=== PATIENT | female | born 1995 | race Hispanic/Latino ===

== ENCOUNTER 2017-06-28 23:20 | Emergency (ER) | payer OTHER ==
[2017-06-29 00:57] LABS: Absolute Monocytes 0.7 K/uL (0.1-1.3); Absolute Neutrophil 7.2 K/uL (1.8-8.0); Basophils % 0.4 % (0-1.3); Eosinophils % 0.4 % (0-4.4); Hematocrit 29.8 % (36.0-45.0); Lymphocytes % 20.4 % (15.3-44.8); MCH 29.6 pg (27.0-35.0); MPV 8.4 fL (7.6-11.3); Monocytes % 6.6 % (3.3-12.3); RBC Red Blood Cell Count 3.43 M/uL (3.86-4.86)
[2017-06-29 01:13] LABS: Bicarbonate 25 mEq/L (21-31); Glucose Level 102 mg/dL (65-120); Lipase 22 U/L (22-51); Potassium 3.4 mEq/L (3.6-5.0); Sodium Level 136 mEq/L (135-145)
[2017-06-29 01:19] LABS: ALT/SGPT 9 IU/L (10-60); AST/SGOT 15 IU/L (10-42); Alkaline Phosphatase 128 IU/L (42-121); BUN Blood Urea Nitrogen 13 mg/dL (6-20); Bilirubin Direct < 0.1 mg/dL (0-0.2); Protein, Total 6.7 g/dL (6.0-8.3)
[2017-06-29 01:20] LABS: Bilirubin Total < 0.1 mg/dL (0.3-1.2)
[2017-06-29 01:39] LABS: Urine Bacteria <20 /HPF (<20); Urine Culture Reflex Order NOT NEEDED; Urine Mucus 3+ /HPF (NONE SEEN); Urine RBC <5 /HPF (NONE SEEN)
--- NOTE | 2017-06-29 01:56 | ER ---
Nurse's Notes [facility] Name: Roselyn Mason Age: 22 yrs Sex: Female : 1995 Arrival Date: 06/28/2017 Time: 23:21 Bed 6 Private MD: Diagnosis: Abdominal and pelvic pain Presentation: 06/28 23:34 Presenting complaint: Patient states: that 3 days ago she started to have right lower fc abd pain. Denies any nausea, vomiting or diarrhea. Pt is 35 weeks . Pt went upstairs and Kassidy RN from L\T\D states that pt is 0-1 cm dilated. FHT 150's. States that Dr Quionnes said to send pt to ER if no better. Transition of care: patient was not received from another setting of care. Onset of symptoms was June 25, 2017. Care prior to arrival: None. 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 - Social history:: Smoking status: Patient/guardian denies using tobacco. Screenin:56 Abuse screen: Denies threats or abuse. Nutritional screening: No deficits noted. jd3 Tuberculosis screening: No symptoms or risk factors identified. Fall Risk Gait- Weak (10 pts.). Total Fuentes Fall Scale indicates No Risk (0-24 pts). Assessment: 23:52 General: Appears in no apparent distress. uncomfortable, Behavior is calm, cooperative, jd3 appropriate for age. Pain: Complains of pain in right lower quadrant Pain currently is 10 out of 10 on a pain scale. Quality of pain is described as sharp. Neuro: Level of Consciousness is awake, alert, obeys commands, Oriented to person, place, time, situation. Cardiovascular: Heart tones S1 S2 present Capillary refill < 3 seconds Patient's skin is warm and dry. Respiratory: Airway is patent Respiratory effort is even, unlabored, Respiratory pattern is regular, symmetrical, Breath sounds are clear bilaterally. GI: Abdomen is round Bowel sounds present X 4 quads. Abd is soft Abdomen is tender to palpation in right lower quadrant. : No signs and/or symptoms were reported regarding the genitourinary system. EENT: No signs and/or symptoms were reported regarding the EENT system. Derm: Skin is intact, Skin is dry, Skin is normal, Skin temperature is warm. Musculoskeletal: Circulation, motion, and sensation intact. Range of motion: intact in all extremities. 06/29 00:44 Reassessment: Patient and/or family updated on plan of care and expected duration. Pain ak1 level reassessed. Patient is alert, oriented x 3, equal unlabored respirations, skin warm/dry/pink. pt c/o increased pain to left lower abd. pt stated sitting and standing upright it increases pain. ERP at bedside after talking with pt's STRUCTURAL STEEL FITTER Dr. Bennett. ERP notified pt of possible transfer. Patient states symptoms have not improved. 01:32 Reassessment: pt informed of transfer to [facility]. Pt is asking why she can not ak1 be admitted to [facility] for MRI in the morning when the metal technician comes in, ERP notified of pt's request. ERP calling DR. Bennett, pt's STRUCTURAL STEEL FITTER again. waiting on DR. Bennett to return ERP's call. pt notified of the wait and will inform pt of answer to pt's question once Dr. Bennett calls back. . 02:29 Reassessment: Patient appears in no apparent distress at this time. Patient and/or jd3 family updated on plan of care and expected duration. Pain level reassessed. Patient is alert, oriented x 3, equal unlabored respirations, skin warm/dry/pink. report given EMS, pt reported understanding on need for transfer. Vital Signs: 06/28 23:39 Weight 72.57 kg (R); Height 5 ft. 1 in. (154.94 cm) (R); Pain 12/28; fc 23:51 BP 117 / 72; Pulse 102; Resp 19 S; Temp 98.3(O); Pulse Ox 97% on R/A; Pain 12/28; jd3 06/29 02:32 BP 109 / 74; Pulse 98; Resp 18; Pulse Ox 99% on R/A; Pain 12/28; jd3 06/28 23:39 Body Mass Index 30.23 (72.57 kg, 154.94 cm) ED Course: 06/28 23:21 Patient arrived in ED. am2 23:38 Triage completed. 23:40 Arm band placed on Patient placed in an exam room, on a stretcher. 23:43 Cornel Luna RN is Primary Nurse. jd3 23:54 Demetrius Lindo MD is Attending Physician. 23:57 Patient has correct armband on for positive identification. Placed in gown. Bed in low jd3 position. Call light in reach. Side rails up X 1. 04 00:41 Basic Metabolic Panel Sent. jd3 00:41 CBC with Diff Sent. jd3 00:41 Hepatic Function Sent. jd3 00:41 Lipase Sent. jd3 00:44 Inserted saline lock: 20 gauge in right antecubital area, using aseptic technique. ak1 Blood collected. 02:27 No provider procedures requiring assistance completed. Patient transferred, IV remains jd3 in place. Administered Medications: 02:21 Drug: Tylenol 650 mg Route: PO; jd3 02:28 Follow up: Response: No adverse reaction jd3 Outcome: 01:55 ER care complete, transfer ordered by . 02:28 Transferred by ground EMS to [facility], Transfer form jd3 completed. 02:28 Condition: stable 02:28 Instructed on the need for transfer, Demonstrated understanding of instructions. 02:33 Patient left the ED. jd3 Signatures: Hortencia Dyer RN RN Jocelyne Umaña RN RN ak1 Danielle Cornejo am2 Demetrius Lindo MD MD Cornel Luna RN RN jd3 Corrections: (The following items were deleted from the chart) 00:25 06/28 23:51 BP 117 / 72; Pulse 102bpm; Resp 19bpm; Spontaneous; Pulse Ox 97% RA; Pain jd3 12/28; jd3
--- NOTE | 2017-06-29 01:56 | EDPHYS ---
Physician Documentation [facility] Name: Roselyn Mason Age: 22 yrs Sex: Female : 1995 Arrival Date: 06/28/2017 Time: 23:21 Bed 6 Private MD: ED Physician Demetrius Lindo HPI: 06/29 01:33 This 22 yrs old Female presents to ER via Ambulatory with complaints of gs Abdominal Pain - RLQ. 01:33 The patient presents with abdominal pain in the lower abdomen, right lower quadrant. gs Onset: The symptoms/episode began/occurred 2 day(s) ago, and became worse and became persistent. The symptoms do not radiate. Associated signs and symptoms: Pertinent negatives: diarrhea, dysuria, fever, vomiting. The symptoms are described as sharp. Modifying factors: the symptoms are aggravated by movement. Severity of pain: At its worst the pain was severe in the emergency department the pain has improved mildly. The patient has not recently seen a physician. 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 - Social history:: Smoking status: Patient/guardian denies using tobacco. ROS: 06/29 01:33 All other systems are negative. gs Exam: 01:33 Head/Face: Normocephalic, atraumatic. Eyes: Pupils equal round and reactive to light, gs extra-ocular motions intact. Lids and lashes normal. Conjunctiva and sclera are non-icteric and not injected. Cornea within normal limits. Periorbital areas with no swelling, redness, or edema. ENT: Nares patent. No nasal discharge, no septal abnormalities noted. Tympanic membranes are normal and external auditory canals are clear. Oropharynx with no redness, swelling, or masses, exudates, or evidence of obstruction, uvula midline. Mucous membranes moist. Neck: Trachea midline, no thyromegaly or masses palpated, and no cervical lymphadenopathy. Supple, full range of motion without nuchal rigidity, or vertebral point tenderness. No Meningismus. Chest/axilla: Normal chest wall appearance and motion. Nontender with no deformity. No lesions are appreciated. Cardiovascular: Regular rate and rhythm with a normal S1 and S2. No gallops, murmurs, or rubs. Normal PMI, no JVD. No pulse deficits. Respiratory: Lungs have equal breath sounds bilaterally, clear to auscultation and percussion. No rales, rhonchi or wheezes noted. No increased work of breathing, no retractions or nasal flaring. Back: No spinal tenderness. No costovertebral tenderness. Full range of motion. Skin: Warm, dry with normal turgor. Normal color with no rashes, no lesions, and no evidence of cellulitis. MS/ Extremity: Pulses equal, no cyanosis. Neurovascular intact. Full, normal range of motion. Neuro: Awake and alert, GCS 15, oriented to person, place, time, and situation. Cranial nerves II-XII grossly intact. Motor strength 5/5 in all extremities. Sensory grossly intact. Cerebellar exam normal. Normal gait. 01:33 Constitutional: The patient appears alert, awake. 01:33 Abdomen/GI: Inspection: gravid appearance, is noted, Palpation: moderate abdominal tenderness, in the right lower quadrant and left lower quadrant, tenderness to percussion, Indicators: Rovsing's sign is positive. Vital Signs: 06/28 23:39 Weight 72.57 kg (R); Height 5 ft. 1 in. (154.94 cm) (R); Pain 10/10; fc 23:51 BP 117 / 72; Pulse 102; Resp 19 S; Temp 98.3(O); Pulse Ox 97% on R/A; Pain 10/10; jd3 06/29 02:32 BP 109 / 74; Pulse 98; Resp 18; Pulse Ox 99% on R/A; Pain 10/10; jd3 06/28 23:39 Body Mass Index 30.23 (72.57 kg, 154.94 cm) fc MDM: 00:18 Patient medically screened. gs 01:33 Differential diagnosis: appendicitis, round ligament pain, uti. Data reviewed: vital gs signs, nurses notes. Physician consultation: Araseli Salcedo MD after a discussion of the case, a recommendation for transfer for higher level of care is made. 01:55 ED course: would be unusual presentation for round ligament pain, didn't have previous gs pregnancies, started in end of 3rd trimester. will need exam by OB, surgeon. Dr. paniagua ask that her pt be transferred as we cannot get MRI now.. 06/29 00:20 Order name: Basic Metabolic Panel; Complete Time: 01:30 gs 06/29 00:20 Order name: CBC with Diff; Complete Time: : gs 06/29 00:20 Order name: Hepatic Function; Complete Time: : gs 06/29 00:20 Order name: Lipase; Complete Time: : gs 06/29 00:20 Order name: Urine Microscopic Only; Complete Time: 02:18 gs 06/29 00:45 Order name: Urine Dipstick--Ancillary (enter results); Complete Time: 02:18 rg2 06/29 00:20 Order name: IV Saline Lock; Complete Time: 00:41 gs 06/29 00:20 Order name: Labs collected and sent; Complete Time: 00:41 gs 06/29 00:20 Order name: Urine Dipstick-Ancillary (obtain specimen); Complete Time: 00:44 gs 06/29 00:45 Order name: Urine --Ancillary (enter results); Complete Time: 02:18 rg2 Administered Medications: 02:21 Drug: Tylenol 650 mg Route: PO; jd3 02:28 Follow up: Response: No adverse reaction jd3 Disposition: 06/29/17 01:55 Transfer ordered to [facility]. Diagnosis is Abdominal and pelvic pain. - Reason for transfer: Higher level of care. - Accepting physician is olivia. - Condition is Stable. - Problem is new. - Symptoms are unchanged. Signatures: Dispatcher [employer] EDMS Hortencia Dyer RN RN Demetrius Lindo MD MD gs Davies, Jonathon, RN RN jd3
[2017-06-29 02:14] LABS: Urine Blood TRACE (NEG); Urine Glucose NEGATIVE (NEG); Urine Protein 1+ (NEG); Urine Specific Gravity >1.030 (1.005-1.030); Urine pH 6.5 (5.0-7.0)
[2017-06-29] MEDS ORDERED: ACETAMINOPHEN 325 MG TABLET ONE (02:19)
[2017-06-29 02:40] VITALS: TEMP 98.3
[2017-06-29 02:41] VITALS: BP 109/74; O2SAT 99
== END 2017-06-29 02:33 | disposition short-term general hospital (02) ==
LOC: ER 23:20
DX: R10.2 Pelvic and perineal pain (principal); Z3A.35 35 weeks gestation of pregnancy
CPT/HCPCS: 36415; 80048; 80076; 81003; 81015; 81025; 83690; 85025; 99285

== ENCOUNTER 2017-07-06 02:12 | Emergency (ER) | payer OTHER ==
[2017-07-06] MEDS ORDERED: NA CHLORIDE 0.9% 2,000 ML ONE (03:09)
[2017-07-06] MEDS ORDERED: ONDANSETRON 4 MG/2 ML VIAL ONE ×2 (03:09→04:53)
[2017-07-06 04:13] LABS: Absolute Lymphocytes (CBC) 1.2 K/uL (0.7-4.9); Absolute Monocytes 0.5 K/uL (0.1-1.3); Absolute Neutrophil 9.9 K/uL (1.8-8.0); Basophils % 0.2 % (0-1.3); Eosinophils % 0.1 % (0-4.4); Hematocrit 31.8 % (36.0-45.0); Lymphocytes % 10.4 % (15.3-44.8); MCH 29.4 pg (27.0-35.0); MCV 86.8 fL (80-100); MPV 8.6 fL (7.6-11.3); Monocytes % 4.5 % (3.3-12.3); RBC Red Blood Cell Count 3.67 M/uL (3.86-4.86)
[2017-07-06 04:33] LABS: Bicarbonate 23 mEq/L (21-31); Glucose Level 86 mg/dL (65-120); Potassium 3.6 mEq/L (3.6-5.0); Sodium Level 135 mEq/L (135-145)
[2017-07-06 04:34] LABS: BUN Blood Urea Nitrogen 12 mg/dL (6-20)
--- NOTE | 2017-07-06 04:44 | ER ---
Nurse's Notes [facility] Name: Roselyn Mason Age: 22 yrs Sex: Female : 1995 Arrival Date: 07/06/2017 Time: 02:15 Bed 17 Private MD: Diagnosis: Vomiting; related conditions, unspecified, third trimester Presentation: 07/06 02:30 Presenting complaint: Patient states: she is having upper abdominal pain after which bb she vomits last year she had similar symptoms and was transferred from [facility] to [place] for possible esophageal tear. Transition of care: patient was not received from another setting of care. Onset of symptoms was July 05, 2017 at 20:00. Initial Sepsis Screen: Does the patient meet any 2 criteria? No. Patient's initial sepsis screen is negative. Does the patient have a suspected source of infection? No. Patient's initial sepsis screen is negative. Care prior to arrival: pt was sent to L\T\D T were 140. 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 - Social history:: Smoking status: Patient/guardian denies using tobacco, Patient/guardian denies using alcohol, street drugs. - Family history:: not pertinent. Screenin:00 Abuse screen: Denies threats or abuse. Denies injuries from another. Nutritional aa1 screening: No deficits noted. Tuberculosis screening: No symptoms or risk factors identified. Fall Risk None identified. Assessment: 03:00 General: Appears in no apparent distress. comfortable, Behavior is calm, cooperative, aa1 appropriate for age. Pain: Complains of pain in abdomen. Neuro: Level of Consciousness is awake, alert, obeys commands, Oriented to person, place, time, situation, Moves all extremities. Full function Gait is steady. Respiratory: Airway is patent Respiratory effort is even, unlabored, Respiratory pattern is regular, symmetrical. GI: Reports lower abdominal pain, upper abdominal pain, nausea, vomiting. : No signs and/or symptoms were reported regarding the genitourinary system. EENT: No signs and/or symptoms were reported regarding the EENT system. Derm: Skin is intact, is healthy with good turgor, Skin is pink, warm \T\ dry. Musculoskeletal: Circulation, motion, and sensation intact. Capillary refill < 3 seconds. 05:02 Reassessment: Patient appears in no apparent distress at this time. Patient is alert, aa1 oriented x 3, equal unlabored respirations, skin warm/dry/pink. Discussed d/c \T\ f/u instructions with pt; denies questions or concerns at this time Patient denies pain at this time. Vital Signs: 02:32 BP 115 / 79; Pulse 104; Resp 18 S; Temp 97.6(O); Pulse Ox 99% on R/A; Weight 74.39 kg bb (R); Height 5 ft. 1 in. (154.94 cm) (R); Pain 8/10; 03:43 BP 111 / 73; Pulse 84; Resp 16; Pulse Ox 98% on R/A; aa1 05:02 BP 115 / 80; Pulse 97; Resp 16; Pulse Ox 99% on R/A; Pain 0/10; aa1 02:32 Body Mass Index 30.99 (74.39 kg, 154.94 cm) bb ED Course: 02:15 Patient arrived in ED. do 02:32 Triage completed. bb 02:32 Arm band placed on Patient placed in an exam room, on a stretcher, on pulse oximetry. bb 02:38 Ata Fowler MD is Attending Physician. [facility] 03:00 Patient has correct armband on for positive identification. Bed in low position. Call aa1 light in reach. Pulse ox on. NIBP on. Warm blanket given. 03:18 Ping Rand RN is Primary Nurse. aa1 03:30 Initial lab(s) drawn, by me, sent to lab. Urine collected: clean catch specimen, clear. aa1 Inserted saline lock: 20 gauge in right antecubital area, using aseptic technique. Blood collected. 05:02 No provider procedures requiring assistance completed. IV discontinued, intact, aa1 bleeding controlled, No redness/swelling at site. Pressure dressing applied. Administered Medications: 03:34 Drug: Zofran 4 mg Route: IVP; Site: right antecubital; aa1 05:01 Follow up: Response: No adverse reaction; Nausea unchanged aa1 03:35 Drug: NS 0.9% 1000 ml Route: IV; Rate: 1 bolus; Site: right antecubital; aa1 05:02 Follow up: IV Status: Completed infusion aa1 03:35 Drug: NS 0.9% 1000 ml Route: IV; Rate: 1 bolus; Site: right antecubital; aa1 05:02 Follow up: IV Status: Completed infusion aa1 05:02 Drug: Zofran 4 mg Route: IVP; Site: right antecubital; aa1 05:02 Follow up: Response: Medication administered at discharge. aa1 Outcome: 04:43 Discharge ordered by . ellis 05:03 Discharged to home ambulatory. aa1 05:03 Condition: good 05:03 Discharge instructions given to patient, Instructed on discharge instructions, follow up and referral plans. medication usage, Demonstrated understanding of instructions, follow-up care, medications, Prescriptions given X 1. 05:04 Patient left the ED. aa1 Signatures: Ping Rand, RN RN aa1 Ata Fowler MD MD cha Ballard, Brenda, RN RN Linda Warren do
--- NOTE | 2017-07-06 04:44 | EDPHYS ---
Physician Documentation [facility] Name: Roselyn Mason Age: 22 yrs Sex: Female : 1995 Arrival Date: 07/06/2017 Time: 02:15 Bed 17 Private MD: ED Physician Ata Fowler HPI: 07/06 03:02 This 22 yrs old Female presents to ER via Ambulatory with complaints of ellis , Abd Pain When Vomiting. 03:02 The patient presents to the emergency department with nausea, vomiting. Onset: The ellis symptoms/episode began/occurred 2 day(s) ago. Possible causes: unknown. The symptoms are aggravated by nothing. The symptoms are alleviated by nothing. The patient presents to the emergency department with nausea and vomiting, that started yesterday. The estimated gestational age is 26 weeks. Associated signs and symptoms: The patient has no apparent associated signs or symptoms. 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 - Social history:: Smoking status: Patient/guardian denies using tobacco, Patient/guardian denies using alcohol, street drugs. - Family history:: not pertinent. ROS: 03:02 Constitutional: Negative for fever, chills, and weight loss, Eyes: Negative for injury, ellis pain, redness, and discharge, ENT: Negative for injury, pain, and discharge, Neck: Negative for injury, pain, and swelling, Cardiovascular: Negative for chest pain, palpitations, and edema, Respiratory: Negative for shortness of breath, cough, wheezing, and pleuritic chest pain, Back: Negative for injury and pain, : Negative for injury, bleeding, discharge, and swelling, MS/Extremity: Negative for injury and deformity, Skin: Negative for injury, rash, and discoloration, Neuro: Negative for headache, weakness, numbness, tingling, and seizure, Psych: Negative for depression, anxiety, suicide ideation, homicidal ideation, and hallucinations, Allergy/Immunology: Negative for hives, rash, and allergies, Endocrine: Negative for neck swelling, polydipsia, polyuria, polyphagia, and marked weight changes, Hematologic/Lymphatic: Negative for swollen nodes, abnormal bleeding, and unusual bruising. 03:02 Abdomen/GI: Positive for nausea and vomiting, abdominal distension, of the right upper quadrant, left upper quadrant, right lower quadrant and left lower quadrant. Exam: 03:02 Constitutional: This is a well developed, well nourished patient who is awake, alert, ellis and in no acute distress. Head/Face: Normocephalic, atraumatic. Eyes: Pupils equal round and reactive to light, extra-ocular motions intact. Lids and lashes normal. Conjunctiva and sclera are non-icteric and not injected. Cornea within normal limits. Periorbital areas with no swelling, redness, or edema. ENT: Nares patent. No nasal discharge, no septal abnormalities noted. Tympanic membranes are normal and external auditory canals are clear. Oropharynx with no redness, swelling, or masses, exudates, or evidence of obstruction, uvula midline. Mucous membranes moist. Neck: Trachea midline, no thyromegaly or masses palpated, and no cervical lymphadenopathy. Supple, full range of motion without nuchal rigidity, or vertebral point tenderness. No Meningismus. Chest/axilla: Normal chest wall appearance and motion. Nontender with no deformity. No lesions are appreciated. Cardiovascular: Regular rate and rhythm with a normal S1 and S2. No gallops, murmurs, or rubs. Normal PMI, no JVD. No pulse deficits. Respiratory: Lungs have equal breath sounds bilaterally, clear to auscultation and percussion. No rales, rhonchi or wheezes noted. No increased work of breathing, no retractions or nasal flaring. Back: No spinal tenderness. No costovertebral tenderness. Full range of motion. Skin: Warm, dry with normal turgor. Normal color with no rashes, no lesions, and no evidence of cellulitis. MS/ Extremity: Pulses equal, no cyanosis. Neurovascular intact. Full, normal range of motion. Neuro: Awake and alert, GCS 15, oriented to person, place, time, and situation. Cranial nerves II-XII grossly intact. Motor strength 5/5 in all extremities. Sensory grossly intact. Cerebellar exam normal. Normal gait. Psych: Awake, alert, with orientation to person, place and time. Behavior, mood, and affect are within normal limits. 03:02 Abdomen/GI: Inspection: abdomen appears normal, Bowel sounds: normal, Palpation: abdomen is soft and non-tender, Liver: no appreciated palpable abnormalities, Hernia: not appreciated. Vital Signs: 02:32 BP 115 / 79; Pulse 104; Resp 18 S; Temp 97.6(O); Pulse Ox 99% on R/A; Weight 74.39 kg bb (R); Height 5 ft. 1 in. (154.94 cm) (R); Pain 8/10; 03:43 BP 111 / 73; Pulse 84; Resp 16; Pulse Ox 98% on R/A; aa1 05:02 BP 115 / 80; Pulse 97; Resp 16; Pulse Ox 99% on R/A; Pain 0/10; aa1 02:32 Body Mass Index 30.99 (74.39 kg, 154.94 cm) MDM: 02:38 Patient medically screened. [facility] 03:03 Data reviewed: vital signs, nurses notes, lab test result(s). [facility] 07/06 03:01 Order name: Basic Metabolic Panel; Complete Time: 04:42 [facility] 07/06 03:01 Order name: CBC with Diff; Complete Time: 04:42 [facility] 07/06 04:51 Order name: Urine Dipstick--Ancillary (enter results) [facility] 07/06 03:01 Order name: IV Saline Lock; Complete Time: 03:35 [facility] 07/06 03:01 Order name: Labs collected and sent; Complete Time: 03:35 [facility] 07/06 03:01 Order name: NPO; Complete Time: 03:18 [facility] 07/06 03:01 Order name: Urine Dipstick-Ancillary (obtain specimen); Complete Time: 03:35 [facility] Administered Medications: 03:34 Drug: Zofran 4 mg Route: IVP; Site: right antecubital; aa1 05:01 Follow up: Response: No adverse reaction; Nausea unchanged aa1 03:35 Drug: NS 0.9% 1000 ml Route: IV; Rate: 1 bolus; Site: right antecubital; aa1 05:02 Follow up: IV Status: Completed infusion aa1 03:35 Drug: NS 0.9% 1000 ml Route: IV; Rate: 1 bolus; Site: right antecubital; aa1 05:02 Follow up: IV Status: Completed infusion aa1 05:02 Drug: Zofran 4 mg Route: IVP; Site: right antecubital; aa1 05:02 Follow up: Response: Medication administered at discharge. aa1 Disposition: 07/06/17 04:43 Discharged to Home. Impression: Vomiting, related conditions, unspecified, third trimester. - Condition is Stable. - Discharge Instructions: Nausea and Vomiting, Nausea and Vomiting, [id number]. - Prescriptions for Zofran 4 mg Oral Tablet - take 1 tablet by ORAL route every 12 hours As needed; 20 tablet. Vitamin 27- 0.8 mg Oral Tablet - take 1 tablet by ORAL route once daily; 30 tablet. - Medication Reconciliation Form, Thank You Letter, Antibiotic Education, Prescription Opioid Use form. - Follow up: Private Physician; When: 2 - 3 days; Reason: Recheck today's complaints, Continuance of care, Re-evaluation by your physician. - Problem is new. - Symptoms have improved. Signatures: Dispatcher [employer] Ping Nevarez RN RN aa1 Ata Fowler MD MD cha Ballard, Brenda, RN RN bb Corrections: (The following items were deleted from the chart) 03:18 03:01 FHT's ordered. ellis chaudhry
[2017-07-06 05:15] VITALS: TEMP 97.6
[2017-07-06 05:18] VITALS: BP 115/80; O2SAT 99
[2017-07-06 06:21] LABS: Urine Blood NEGATIVE (NEG); Urine Glucose NEGATIVE (NEG); Urine Protein 2+ (NEG); Urine Specific Gravity >1.030 (1.005-1.030)
== END 2017-07-06 05:04 | disposition home or self-care (01) ==
LOC: ER 02:12
DX: O21.9 Vomiting of pregnancy, unspecified (principal); Z3A.36 36 weeks gestation of pregnancy
CPT/HCPCS: 36415; 80048; 81003; 85025; 96361; 96374; 99284; J2405; J7030

== ENCOUNTER 2017-07-18 02:48 | Inpatient (IN) | payer OTHER ==
[2017-07-18] MEDS ORDERED: Ringers Lactate 1,000 ML IV PRN (03:12)
[2017-07-18] MEDS ORDERED: Ringers Lactate 1,000 ML IV SCH (04:00)
[2017-07-18 04:04] VITALS: BMI 30.8
[2017-07-18 04:14] LABS: RPR Titer ND
[2017-07-18 04:23] LABS: Absolute Lymphocytes (CBC) 1.4 K/uL (0.7-4.9); Absolute Monocytes 0.7 K/uL (0.1-1.3); Absolute Neutrophil 4.2 K/uL (1.8-8.0); Basophils % 0.6 % (0-1.3); Eosinophils % 1.9 % (0-4.4); Hematocrit 26.1 % (36.0-45.0); Lymphocytes % 21.8 % (15.3-44.8); MCH 29.3 pg (27.0-35.0); MCV 85.1 fL (80-100); MPV 8.9 fL (7.6-11.3); Monocytes % 10.4 % (3.3-12.3); RBC Red Blood Cell Count 3.06 M/uL (3.86-4.86)
[2017-07-18] MEDS ORDERED: CARBOPROST TROME 250 MCG/ML IM ONE (04:48)
[2017-07-18] MEDS ORDERED: METHYLERGONOVINE 0.2MG/ML AMP IM ONE ×2 (04:48→15:55)
[2017-07-18 08:38] LABS: Urine Appearance CLEAR; Urine Bilirubin NEGATIVE (NEG); Urine Blood NEGATIVE (NEG); Urine Color YELLOW; Urine Glucose NEGATIVE (NEG); Urine Protein NEGATIVE (NEG); Urine Urobilinogen 0.2 mg/dL (0.2-1.0); Urine pH 6.5 (5.0-7.0)
[2017-07-18 09:05] LABS: Urine Bacteria <20 /HPF (<20); Urine Culture Reflex Order NOT NEEDED; Urine RBC <5 /HPF (NONE SEEN)
[2017-07-18] MEDS ORDERED: OXYTOCIN/LR 20 UNIT/1,000 ML BAG IV ONE (09:27)
[2017-07-18] MEDS ORDERED: FENTANYL CITR 100 MCG/2 ML IV ONE (10:23)
[2017-07-18] MEDS ORDERED: ROPIVACAINE HCL 100 ML IV PRN (10:23)
[2017-07-18] MEDS ORDERED: ROPIVACAINE HCL 2 MG/ML 100ML IV ONE (10:24)
[2017-07-18] MEDS ORDERED: ROPIVACAINE HCL 20 ML ONE ×2 (10:46→14:37)
[2017-07-18] MEDS ORDERED: FENTANYL CITR 100 MCG/2 ML ONE (14:37)
[2017-07-18] MEDS ORDERED: LIDOCAINE 2% INJ, 20 mL 0 ML ONE (15:55)
[2017-07-18] MEDS ORDERED: METHYLERGONOVINE 0.2 MG TAB PO PRN (16:59)
[2017-07-18] MEDS ORDERED: DOCUSATE NA/SENNA CONC 1 TAB PO PRN (16:59)
[2017-07-18] MEDS ORDERED: ONDANSETRON 4 MG (ODT) TAB PO PRN (16:59)
[2017-07-18] MEDS ORDERED: ACETAMINOPHEN 500 MG TAB PO PRN (16:59)
[2017-07-18] MEDS ORDERED: BISACODYL 10 MG RECTAL SUPP RECT PRN (16:59)
--- NOTE | 2017-07-18 17:03 | P.PN ---
Date of Service: 07/18/17
[2017-07-18] MEDS ORDERED: ONDANSETRON 4 MG/2 ML VIAL IV ONE (17:51)
[2017-07-18] MEDS: IBUPROFEN 200 MG TAB PO PRN (18:48)
[2017-07-18] MEDS: Oxycodone HCl/Acetaminophen 1 TAB TAB PO PRN (19:08)
--- NOTE | 2017-07-18 21:55 | HP ---
Date of Admission: 07/18/2017 History Of Present Illness: Roselyn is a 22-year-old, 4, para 1-0-2-1 , who presents at 38 weeks and 2 days with spontaneous rupture of membranes at 2 :45 a.m. The patient presented to labor and delivery after she had a gush of fluid at home. It was clear. Once patient presented, it was confirmed that she was ruptured, cervix is 2-3 cm dilated, 50% effaced, -1 station, clear fluid was noted. She reports irregular contractions. Denies vaginal bleeding. Reports good movement. She has obtained care with nd beginning at 19 weeks gestation. care has been complicated by anemia. She has a history of one prior vaginal delivery in 2015 at 40 weeks gestation and was induced and she received an epidural. See record for further details. She is GBS negative, Rh positive. Past Medical History: Negative. Past Surgical History: Negative. 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 Family History: Significant for diabetes mellitus. Social History: Currently is not smoking. No alcohol or drug use. Physical Examination: Vital Signs: On admission, blood pressure 107/71, pulse of 79, respirations 18 , temperature 97.4. General: Resting in bed, in mild distress. Head and Neck: Normocephalic, atraumatic. Heart: Regular rate and rhythm. Lungs: Symmetric nonlabored breathing. Abdomen: Gravid. Extremities: Bilateral lower extremities, no clubbing, cyanosis, or edema. Vaginal: 2-3 cm dilated, 60% effaced, -1 station. Vertex presentation. Clear fluid noted. scalp electrode placed. [place] contractions are irregular. heart rate monitoring, baseline heart rate 140. Good accelerations noted. No decels. Moderate variability, category 2 tracing. Laboratory Data: White blood cell count 6.5, hemoglobin 9.0, hematocrit 26, platelet count is 260. Assessment And Plan: Roselyn is a 22-year-old, 4, para 1-0-2-1 at 38 weeks and 2 days gestation with spontaneous rupture of membranes in early labor. Plan is to begin Pitocin for labor augmentation. Epidural placement at patient's request. Anticipate vaginal . Continuous maternal monitoring. PIERO Voice ID: [id number] [facility]
[2017-07-18 22:11] LABS: RPR (Rapid Plasma Reagin) NON-REACT (NON-REACT)
[2017-07-19] MEDS: Oxycodone HCl/Acetaminophen 1 TAB TAB PO PRN ×3 (00:40→19:30)
[2017-07-19 04:54] LABS: Absolute Lymphocytes (CBC) 1.8 K/uL (0.7-4.9); Absolute Monocytes 0.7 K/uL (0.1-1.3); Absolute Neutrophil 7.1 K/uL (1.8-8.0); Basophils % 0.4 % (0-1.3); Eosinophils % 0.6 % (0-4.4); Hematocrit 23.1 % (36.0-45.0); Lymphocytes % 18.6 % (15.3-44.8); MCH 29.4 pg (27.0-35.0); MCV 84.4 fL (80-100); MPV 8.4 fL (7.6-11.3); Monocytes % 7.3 % (3.3-12.3); RBC Red Blood Cell Count 2.73 M/uL (3.86-4.86)
[2017-07-19] MEDS: IBUPROFEN 200 MG TAB PO PRN ×2 (05:30→12:28)
[2017-07-19 19:48] VITALS: BP 111/70; TEMP 98
[2017-07-19] MEDS ORDERED: FERROUS SULFATE 325 MG TAB PO SCH (21:00)
--- NOTE | 2017-07-19 23:20 | P.DS ---
Admission Date: 07/18/17 Discharge Date: 07/19/17 Disposition: ROUTINE DISCHARGE Discharge Condition: GOOD Brief History of Present Illness: See H and P Hospital Course: care complicated by anemia. Patient doing well. Bonding well with the infant. Emphasized importance of taking prenatals and iron. Vital Signs/Physical Exam: Temp Pulse Resp BP Pulse Ox 98 F 86 18 111/70 07/19/17 12:00 07/19/17 12:00 07/19/17 12:00 07/19/17 12:00 General: Alert, In no apparent distress, Oriented x3 HEENT: Atraumatic Neck: Supple Respiratory: Normal air movement Cardiovascular: No edema, Normal pulses Gastrointestinal: Soft and benign (Fundus firm) Musculoskeletal: No clubbing, No swelling Integumentary: No rashes, No breakdown Neurological: Normal gait, Normal speech Laboratory Data at Discharge: WBC 9.7 K/uL (4.3-10.9) D 07/19/17 04:30 Hgb 8.0 g/dL (12.0-15.0) L 07/19/17 04:30 Hct 23.1 % (36.0-45.0) L 07/19/17 04:30 Plt Count 228 K/uL (152-406) 07/19/17 04:30 Home Medications: Ferrous Sulfate [Ferrous Sulfate*] 1 tab PO DAILY 06/11/14 Pnv with Ca,No.71/Iron/FA [ Vitamin Tablet] 1 tab PO DAILY 06/11/14 Diet: Regular Activity: No lifting more than 10 lbs Followup: Luis Enrique Salcedo DO [ACTIVE - CAN ADMIT] - (Follow up with Dr. Salcedo in 6 weeks.)
[2017-07-20 04:32] LABS: HBsAG Nonreactive (Nonreactive)
[2017-07-20] MEDS ORDERED: PRENATAL VITAMIN PO SCH (09:00)
--- NOTE | 2017-07-27 16:08 | P.OP ---
Date of Service: 07/18/17 Findings and Operative Technique Patient delivered a viable female in cephalic presentation on 07/18/2017 at 4:46 p.m.. was delivered without difficulty. Once infant was delivered nose and mouth were suctioned with a suction bulb. Cord was clamped and cut. Infant was placed on mother's abdomen for skin to skin bonding. Attention was then turned to the placenta which was delivered with gentle traction at 4:49 p.m.. Perineum was noted to be intact. EBL was noted to be 200 cc. Infant's Apgars were 9 and 9. Weight was found to be 7 lb 9 oz. 1st stage of labor was 14 hr and 34 min. 2nd stage was 12 min. Both mom and baby are doing well.
== END 2017-07-19 21:20 | disposition home or self-care (01) | DRG 775 ==
LOC: L&D 02:48 → 2ND-WC 03:19
PROVIDERS: ADMIT Student in an Organized Health Care Education/Training Program; ATTEND Student in an Organized Health Care Education/Training Program
PROC: 10E0XZZ Delivery of Products of Conception, External Approach (ICD-10-PCS; principal; 2017-07-18)
DX: O80 Encounter for full-term uncomplicated delivery (principal); O90.81 Anemia of the puerperium; D64.9 Anemia, unspecified; Z3A.38 38 weeks gestation of pregnancy; Z37.0 Single live birth
CPT/HCPCS: 36415; 81001; 83986; 85025; 86592; 86850; 86900; 86901; 87340; 99218; J2210; J2405; J2590; J2795; J3010

== ENCOUNTER 2017-11-17 04:21 | Emergency (ER) | payer OTHER, SELFPAY ==
[2017-11-17] MEDS ORDERED: ONDANSETRON 4 MG/2 ML VIAL ONE (04:51)
[2017-11-17] MEDS ORDERED: NA CHLORIDE 0.9% 1,000 ML ONE (04:51)
[2017-11-17 05:12] LABS: Absolute Lymphocytes (CBC) 2.4 K/uL (0.7-4.9); Absolute Monocytes 0.4 K/uL (0.1-1.3); Absolute Neutrophil 5.1 K/uL (1.8-8.0); Basophils % 0.4 % (0-1.3); Eosinophils % 0.6 % (0-4.4); Hematocrit 32.9 % (36.0-45.0); MCH 24.5 pg (27.0-35.0); MCV 73.3 fL (80-100); MPV 8.3 fL (7.6-11.3); Monocytes % 5.3 % (3.3-12.3); RBC Red Blood Cell Count 4.49 M/uL (3.86-4.86)
[2017-11-17] MEDS ORDERED: ACETAMINOPHEN 500 MG TAB ONE (05:27)
[2017-11-17 05:57] LABS: ALT/SGPT 22 U/L (12-78); AST/SGOT 19 U/L (15-37); Albumin 4.1 g/dL (3.4-5.0); Alkaline Phosphatase 62 U/L (45-117); Amylase Level 48 U/L (25-115); BUN Blood Urea Nitrogen 14 mg/dL (7-18); Bicarbonate 23 mmol/L (21-32); Bilirubin Direct 0.1 mg/dL (0-0.2); Bilirubin Total 0.3 mg/dL (0.2-1.0); Glucose Level 109 mg/dL (74-106); Lipase 88 U/L (73-393); Potassium 3.4 mmol/L (3.5-5.1); Protein, Total 7.9 g/dL (6.4-8.2); Sodium Level 138 mmol/L (136-145)
[2017-11-17 06:01] LABS: Urine Bacteria >50 /HPF (<20); Urine Culture Reflex Order REFLEXED; Urine Mucus 3+ /HPF (NONE SEEN); Urine RBC <5 /HPF (NONE SEEN)
[2017-11-17 06:02] LABS: Urine Blood NEGATIVE (NEG); Urine Glucose NEGATIVE (NEG); Urine Protein 1+ (NEG); Urine Specific Gravity >1.030 (1.005-1.030)
--- NOTE | 2017-11-17 06:15 | ER ---
Nurse's Notes [facility] Name: Roselyn Mason Age: 22 yrs Sex: Female : 1995 Arrival Date: 11/17/2017 Time: 04:24 Bed 8 Private MD: Diagnosis: Diarrhea, unspecified; related conditions, unspecified;Infections of genitourinary tract in Presentation: 11/17 04:32 Presenting complaint: Patient states: vomiting x 2 weeks and has not been able to have aa1 a BM in 1 week. Reports she also took a test last night and it was positive. States she has not taken any OTC medications for her constipation. Transition of care: patient was not received from another setting of care. Onset of symptoms was November 02, 2017. Risk Assessment: Do you want to hurt yourself or someone else? Patient reports no desire to harm self or others. Initial Sepsis Screen: Does the patient meet any 2 criteria? HR > 90 bpm. Does the patient have a suspected source of infection? No. Patient's initial sepsis screen is negative. Care prior to arrival: None. 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 - Social history:: Smoking status: Patient uses tobacco products, denies chronic smoking, but will smoke occasionally. - Ebola Screening: : No symptoms or risks identified at this time. Screenin:47 Abuse screen: Denies threats or abuse. Nutritional screening: No deficits noted. jd3 Tuberculosis screening: No symptoms or risk factors identified. Fall Risk IV access (20 points). Ambulatory Aid- None/Bed Rest/Nurse Assist (0 pts). Gait- Normal/Bed Rest/Wheelchair (0 pts) Mental Status- Oriented to own ability (0 pts). Total Fuentes Fall Scale indicates No Risk (0-24 pts). Assessment: 04:40 General: Appears uncomfortable, Behavior is cooperative, anxious. Pain: Complains of jd3 pain in abdomen Pain radiates to back Quality of pain is described as aching, pressure, Also complains of nausea. Neuro: Level of Consciousness is awake, alert, obeys commands, Oriented to person, place, time, situation. Cardiovascular: Capillary refill < 3 seconds Patient's skin is warm and dry. Respiratory: Airway is patent Respiratory effort is even, unlabored, Respiratory pattern is regular, symmetrical. GI: Abdomen is round Bowel sounds present X 4 quads. Abd is soft Abdomen is tender to palpation Reports constipation, nausea, vomiting. : No signs and/or symptoms were reported regarding the genitourinary system. EENT: No signs and/or symptoms were reported regarding the EENT system. Derm: Skin is intact, Skin is dry, Skin is normal, Skin temperature is warm. Musculoskeletal: Circulation, motion, and sensation intact. Range of motion: intact in all extremities. 05:47 Reassessment: Patient appears in no apparent distress at this time. Patient and/or jd3 family updated on plan of care and expected duration. Pain level reassessed. Patient is alert, oriented x 3, equal unlabored respirations, skin warm/dry/pink. GI: Reports diarrhea. 06:35 Reassessment: Patient appears in no apparent distress at this time. Patient and/or jd3 family updated on plan of care and expected duration. Pain level reassessed. Patient is alert, oriented x 3, equal unlabored respirations, skin warm/dry/pink. Vital Signs: 04:36 BP 124 / 88; Pulse 114; Resp 20; Temp 97.6; Pulse Ox 100% on R/A; Weight 70.76 kg; aa1 Height 5 ft. 1 in. (154.94 cm); Pain 10/10; 06:06 BP 96 / 65; Pulse 72; Resp 17 S; Pulse Ox 100% on R/A; jd3 04:36 Body Mass Index 29.48 (70.76 kg, 154.94 cm) aa1 ED Course: 04:24 Patient arrived in ED. al2 04:26 Tee Marte MD is Attending Physician. tw4 04:36 Triage completed. aa1 04:36 Arm band placed on right wrist. Patient placed in an exam room, on a stretcher. aa1 04:38 Cornel Luna RN is Primary Nurse. jd3 04:50 Inserted saline lock: 20 gauge in right antecubital area, using aseptic technique. jd3 Blood collected. 05:47 Patient has correct armband on for positive identification. Placed in gown. Bed in low jd3 position. Call light in reach. Side rails up X 1. 06:19 No provider procedures requiring assistance completed. jd3 06:36 IV discontinued, intact, bleeding controlled, No redness/swelling at site. Pressure jd3 dressing applied. Administered Medications: 04:54 Drug: NS 0.9% 1000 ml Route: IV; Rate: 1 bolus; Site: right antecubital; jd3 06:37 Follow up: Response: No adverse reaction; IV Status: Completed infusion; IV Intake: jd3 1000ml 04:55 Drug: Zofran 4 mg Route: IVP; Site: right antecubital; jd3 05:19 Follow up: Response: No adverse reaction jd3 05:45 Drug: Tylenol 1000 mg Route: PO; jd3 06:37 Follow up: Response: No adverse reaction jd3 06:07 Not Given (Physician Discretion): Fleet Enema 133 ml AL once; may repeat once jd3 Intake: 06:37 IV: 1000ml; Total: 1000ml. jd3 Outcome: 06:14 Discharge ordered by . tw4 06:36 Discharged to home ambulatory. jd3 06:36 Condition: stable 06:36 Discharge instructions given to patient, Instructed on discharge instructions, follow up and referral plans. medication usage, Demonstrated understanding of instructions, follow-up care, medications, Prescriptions given X 1. 06:37 Patient left the ED. jd3 Signatures: Ping Rand RN RN aa1 Cornel Luna RN RN jd3 Love, Angelica al2 Wadley, Terrence, MD MD tw4
--- NOTE | 2017-11-17 06:15 | EDPHYS ---
Physician Documentation [facility] Name: Roselyn Mason Age: 22 yrs Sex: Female : 1995 Arrival Date: 11/17/2017 Time: 04:24 Bed 8 Private MD: ED Physician Tee Marte HPI: 11/17 06:36 This 22 yrs old Female presents to ER via Ambulatory with complaints of tw4 Constipation, Vomiting, Back Pain. 06:36 The patient presents to the emergency department with nausea, vomiting, diarrhea. tw4 Onset: The symptoms/episode began/occurred today. Possible causes: . The symptoms are aggravated by nothing. The symptoms are alleviated by nothing. Associated signs and symptoms: The patient has no apparent associated signs or symptoms. Severity of symptoms: At their worst the symptoms were moderate in the emergency department the symptoms are unchanged. The patient has not experienced similar symptoms in the past. 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 - Social history:: Smoking status: Patient uses tobacco products, denies chronic smoking, but will smoke occasionally. - Ebola Screening: : No symptoms or risks identified at this time. ROS: 06:36 Constitutional: Negative for fever, chills, and weight loss, Cardiovascular: Negative tw4 for chest pain, palpitations, and edema, Respiratory: Negative for shortness of breath, cough, wheezing, and pleuritic chest pain. 06:36 MS/Extremity: Negative for injury and deformity, Skin: Negative for injury, rash, and discoloration, Neuro: Negative for headache, weakness, numbness, tingling, and seizure. 06:36 Abdomen/GI: Positive for abdominal pain, nausea and vomiting, nausea, vomiting, and diarrhea, nausea, vomiting, Negative for constipation, abdominal cramps, abdominal distension, black/tarry stool, rectal pain, rectal bleeding, bowel incontinence, flatulence. Exam: 06:36 Constitutional: This is a well developed, well nourished patient who is awake, alert, tw4 and in no acute distress. Head/Face: Normocephalic, atraumatic. Chest/axilla: Normal chest wall appearance and motion. Nontender with no deformity. No lesions are appreciated. Cardiovascular: Regular rate and rhythm with a normal S1 and S2. No gallops, murmurs, or rubs. Normal PMI, no JVD. No pulse deficits. Respiratory: Lungs have equal breath sounds bilaterally, clear to auscultation and percussion. No rales, rhonchi or wheezes noted. No increased work of breathing, no retractions or nasal flaring. 06:36 Abdomen/GI: Inspection: abdomen appears normal, Bowel sounds: normal, Palpation: moderate abdominal tenderness, in the suprapubic area. 06:36 : deferred. Vital Signs: 04:36 BP 124 / 88; Pulse 114; Resp 20; Temp 97.6; Pulse Ox 100% on R/A; Weight 70.76 kg; aa1 Height 5 ft. 1 in. (154.94 cm); Pain 10/10; 06:06 BP 96 / 65; Pulse 72; Resp 17 S; Pulse Ox 100% on R/A; jd3 04:36 Body Mass Index 29.48 (70.76 kg, 154.94 cm) aa1 MDM: 04:44 Patient medically screened. tw4 06:36 Differential diagnosis: Nonspecific abd pain, gastritis. Data reviewed: vital signs, tw4 nurses notes. Counseling: I had a detailed discussion with the patient and/or guardian regarding: the historical points, exam findings, and any diagnostic results supporting the discharge/admit diagnosis. Response to treatment: the patient's symptoms have mildly improved after treatment, and as a result, I will discharge patient. Special discussion: I discussed with the patient/guardian in detail that at this point there is no indication for admission to the hospital. It is understood, however, that if the symptoms persist or worsen the patient needs to return immediately for re-evaluation. 11/17 04:33 Order name: Amylase, Serum; Complete Time: 06:22 tw4 11/17 04:33 Order name: Basic Metabolic Panel; Complete Time: 06:22 tw4 11/17 04:33 Order name: CBC with Diff; Complete Time: 05:36 tw4 11/17 05:36 Interpretation: Normal except: HGB 11.0; MCV 73.3; HCT 32.9; MCH 24.5; RDW 18.9. tw4 11/17 04:33 Order name: Creatinine for Radiology; Complete Time: 06:22 [facility] 11/17 04:33 Order name: Hepatic Function; Complete Time: 06:22 11/17 04:33 Order name: Lipase; Complete Time: 06:22 11/17 04:33 Order name: Urine Microscopic Only; Complete Time: 06:22 11/17 06:23 Interpretation: Normal except: UWBC 20-50; SQEPI 10-20; UBACT >50; MUCUS 3+. tw 11/17 04:59 Order name: Urine Dipstick--Ancillary (enter results); Complete Time: 06:22 fl 11/17 04:59 Order name: Urine --Ancillary (enter results); Complete Time: 06:22 fl 11/17 06:02 Order name: Urine Culture [facility] 11/17 04:33 Order name: Urine Test (obtain specimen); Complete Time: 04:55 11/17 04:33 Order name: IV Saline Lock; Complete Time: 04:39 11/17 04:33 Order name: Labs collected and sent; Complete Time: 04:39 11/17 04:33 Order name: Urine Dipstick-Ancillary (obtain specimen); Complete Time: 04:55 tw Administered Medications: 04:54 Drug: NS 0.9% 1000 ml Route: IV; Rate: 1 bolus; Site: right antecubital; jd3 06:37 Follow up: Response: No adverse reaction; IV Status: Completed infusion; IV Intake: jd3 1000ml 04:55 Drug: Zofran 4 mg Route: IVP; Site: right antecubital; jd3 05:19 Follow up: Response: No adverse reaction jd3 05:45 Drug: Tylenol 1000 mg Route: PO; jd3 06:37 Follow up: Response: No adverse reaction jd3 06:07 Not Given (Physician Discretion): Fleet Enema 133 ml UT once; may repeat once jd3 Disposition: 11/17/17 06:14 Discharged to Home. Impression: Diarrhea, unspecified, related conditions, unspecified, Infections of genitourinary tract in . - Condition is Stable. - Discharge Instructions: Food Choices to Help Relieve Diarrhea, Adult, Diarrhea, Adult, Back Pain in , Abdominal Pain During , [id number], and Urinary Tract Infection. - Prescriptions for Macrodantin 100 mg Oral Capsule - take 1 capsule by ORAL route every 6 hours for 10 days; 40 capsule. - Medication Reconciliation Form, Thank You Letter, Antibiotic Education, Prescription Opioid Use form. - Follow up: Private Physician; When: Upon discharge from the Emergency Department; Reason: Recheck today's complaints, Continuance of care. - Problem is new. - Symptoms have improved. Signatures: Dispatcher [employer] EDMS Ping Rand RN RN aa1 Cornel Luna RN RN jd3 Tee Marte MD MD tw4 Corrections: (The following items were deleted from the chart) 06:24 06:14 11/17/2017 06:14 Discharged to Home. Impression: Diarrhea, unspecified; tw4 related conditions, unspecified. Condition is Stable. Forms are Medication Reconciliation Form, Thank You Letter, Antibiotic Education, Prescription Opioid Use. Follow up: Private Physician; When: Upon discharge from the Emergency Department; Reason: Recheck today's complaints, Continuance of care. Problem is new. Symptoms have improved. tw4 06:37 06:24 11/17/2017 06:14 Discharged to Home. Impression: Diarrhea, unspecified; jd3 related conditions, unspecified; Infections of genitourinary tract in . Condition is Stable. Discharge Instructions: Food Choices to Help Relieve Diarrhea, Adult, Diarrhea, Adult, Back Pain in , Abdominal Pain During , [id number]. Forms are Medication Reconciliation Form, Thank You Letter, Antibiotic Education, Prescription Opioid Use. Follow up: Private Physician; When: Upon discharge from the Emergency Department; Reason: Recheck today's complaints, Continuance of care. Problem is new. Symptoms have improved. tw4
[2017-11-17 06:43] VITALS: TEMP 97.6; O2SAT 100
[2017-11-17 06:44] VITALS: BP 96/65
== END 2017-11-17 06:37 | disposition home or self-care (01) ==
LOC: ER 04:21
DX: O23.91 Unspecified genitourinary tract infection in pregnancy, first trimester (principal); R19.7 Diarrhea, unspecified; O99.331 Smoking (tobacco) complicating pregnancy, first trimester
CPT/HCPCS: 36415; 80048; 80076; 81003; 81015; 81025; 82150; 83690; 85025; 87086; 87088; 96361; 96374; 99284; J2405; J7030

== ENCOUNTER 2017-12-06 17:58 | Emergency (ER) | payer SELFPAY ==
[2017-12-06 19:10] LABS: Urine Blood NEGATIVE (NEG); Urine Glucose NEGATIVE (NEG); Urine Protein 2+ (NEG); Urine Specific Gravity 1.025 (1.005-1.030)
[2017-12-06 19:32] LABS: Absolute Lymphocytes (CBC) 1.7 K/uL (0.7-4.9); Absolute Monocytes 0.5 K/uL (0.1-1.3); Absolute Neutrophil 7.2 K/uL (1.8-8.0); Basophils % 0.3 % (0-1.3); Eosinophils % 0.1 % (0-4.4); Hematocrit 34.3 % (36.0-45.0); Lymphocytes % 17.8 % (15.3-44.8); MCH 25.9 pg (27.0-35.0); MCV 76.5 fL (80-100); MPV 8.2 fL (7.6-11.3); Monocytes % 5.4 % (3.3-12.3); RBC Red Blood Cell Count 4.48 M/uL (3.86-4.86)
[2017-12-06] MEDS ORDERED: NA CHLORIDE 0.9% 1,000 ML ONE (19:44)
[2017-12-06] MEDS ORDERED: ONDANSETRON 4 MG/2 ML VIAL ONE (19:44)
[2017-12-06] MEDS ORDERED: FAMOTIDINE 20 MG/2 ML VIAL IV ONE (19:44)
[2017-12-06 20:06] LABS: BUN Blood Urea Nitrogen 13 mg/dL (7-18); Bicarbonate 23 mmol/L (21-32); Glucose Level 87 mg/dL (74-106); HCG, Quantitative 91551 mIU/mL (1-3); Potassium 3.2 mmol/L (3.5-5.1); Sodium Level 137 mmol/L (136-145)
[2017-12-06] MEDS ORDERED: METOCLOPRAMIDE 10 MG/2mL INJ ONE (20:16)
--- NOTE | 2017-12-06 20:35 | ER ---
Nurse's Notes [facility] Name: Roselyn Mason Age: 22 yrs Sex: Female : 1995 Arrival Date: 12/06/2017 Time: 18:01 Bed 25 Private MD: None, None Diagnosis: Vomiting; related conditions, unspecified Presentation: 12/06 18:16 Presenting complaint: Patient states: vomiting for 1.5 weeks and sharp pain in the sv esophagus. Pt reports with her last she was vomiting a lot and they told her she tore her esophagus. c/o lightheadedness. Transition of care: patient was not received from another setting of care. Onset of symptoms was November 29, 2017. Care prior to arrival: None. 18:16 Method Of Arrival: Ambulatory sv 18:16 Acuity: TABITHA 3 sv 19:29 Risk Assessment: Do you want to hurt yourself or someone else? Patient reports no lp1 desire to harm self or others. Initial Sepsis Screen: Does the patient meet any 2 criteria? No. Patient's initial sepsis screen is negative. Does the patient have a suspected source of infection? No. Patient's initial sepsis screen is negative. 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 - Social history:: Smoking status: Patient/guardian denies using tobacco. - Ebola Screening: : No symptoms or risks identified at this time. Screenin:28 Abuse screen: Denies threats or abuse. Denies injuries from another. Nutritional lp1 screening: No deficits noted. Tuberculosis screening: No symptoms or risk factors identified. Fall Risk None identified. Assessment: 19:27 General: Appears uncomfortable, Behavior is appropriate for age. Pain: Complains of lp1 pain in esophagus, chest Pain currently is 8 out of 10 on a pain scale. Neuro: Level of Consciousness is awake, alert, obeys commands. Cardiovascular: Patient's skin is warm and dry. Respiratory: Respiratory effort is even, unlabored. GI: Abdomen is non-distended, Bowel sounds present X 4 quads. Reports nausea, vomiting. : No signs and/or symptoms were reported regarding the genitourinary system. EENT: No signs and/or symptoms were reported regarding the EENT system. Derm: Skin is pink, warm \\T\\ dry. Musculoskeletal: Circulation, motion, and sensation intact. 20:30 Reassessment: Patient states nausea decreased at this time, feeling better and would lp1 like to go home; States "my sister had to leave and my anxiety gets bad when I'm by myself, so I'd rather go home now"; Provider notified. 20:35 Reassessment: Patient drinking apple juice, tolerating well. lp1 Vital Signs: 18:18 BP 124 / 98; Pulse 108; Resp 15; Temp 97.6; Pulse Ox 100% ; Weight 63.5 kg; Height 5 sv ft. 1 in. (154.94 cm); Pain 8/10; 19:26 BP 115 / 75; Pulse 114; Resp 16; Pulse Ox 100% on R/A; aj1 18:18 Body Mass Index 26.45 (63.50 kg, 154.94 cm) sv ED Course: 18:01 Patient arrived in ED. mr 18:02 None, None is Private Physician. mr 18:18 Triage completed. sv 18:19 Arm band placed on left wrist. sv 18:40 Eduardo Sprague MD is Attending Physician. kdr 19:27 Verónica Ayala, GENE is Primary Nurse. lp1 19:27 Inserted saline lock: 20 gauge in left antecubital area, using aseptic technique. Blood lp1 collected. 19:29 Patient has correct armband on for positive identification. Pulse ox on. NIBP on. lp1 20:51 No provider procedures requiring assistance completed. IV discontinued, No lp1 redness/swelling at site. Pressure dressing applied. Administered Medications: 19:45 Drug: NS 0.9% 1000 ml Route: IV; Rate: 1000 ml; Site: left antecubital; lp1 20:40 Follow up: IV Status: IV converted to saline lock; IV Intake: 800ml lp1 19:45 Drug: Zofran 4 mg Route: IVP; Site: left antecubital; lp1 20:00 Follow up: Response: Nausea unchanged lp1 19:46 Drug: Pepcid 20 mg Route: IVP; Site: left antecubital; lp1 20:41 Follow up: Response: No adverse reaction lp1 20:14 Drug: Reglan 10 mg Route: IVP; Site: left antecubital; kr2 20:41 Follow up: Response: Marked relief of symptoms; Nausea is decreased lp1 20:40 Drug: Potassium Chloride 40 mEq Route: PO; lp1 20:41 Follow up: Response: Medication administered at discharge. lp1 Intake: 20:40 IV: 800ml; Total: 800ml. lp1 Outcome: 20:34 Discharge ordered by . kdr 20:52 Discharged to home ambulatory, with family. lp1 20:52 Condition: good 20:52 Discharge instructions given to patient, Instructed on discharge instructions, follow up and referral plans. medication usage, Demonstrated understanding of instructions, follow-up care, medications, Prescriptions given X 2. 20:54 Patient left the ED. lp1 Signatures: Katiana Gonzalez RN RN aj1 Janet Estrella RN RN Eduardo Antunez MD MD kdr Rivera, Maria mr Pena, Laura, RN RN lp1 Ana Lilia Briones RN RN kr2 Corrections: (The following items were deleted from the chart) 19:27 19:26 Inserted saline lock: 20 gauge in left antecubital area, using aseptic technique. lp1 Blood collected. aj1
--- NOTE | 2017-12-06 20:35 | EDPHYS ---
Physician Documentation [facility] Name: Roselyn Mason Age: 22 yrs Sex: Female : 1995 Arrival Date: 12/06/2017 Time: 18:01 Bed 25 Private MD: None, None ED Physician Eduardo Sprague HPI: 12/06 20:47 This 22 yrs old Female presents to ER via Ambulatory with complaints of kdr unknown wks , Vomiting. 20:47 The patient presents to the emergency department with nausea, that is moderate, kdr vomiting, that is intermittent, abdominal pain, of the epigastric area, Chest pain radiating down from her neck when she is vomiting. Onset: The symptoms/episode began/occurred gradually, 2 week(s) ago. Possible causes: . The symptoms are aggravated by food , The symptoms are alleviated by nothing. Associated signs and symptoms: Pertinent positives: abdominal pain. Severity of symptoms: At their worst the symptoms were moderate in the emergency department the symptoms have improved moderately. The patient has experienced a previous episode, With prior . 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 - Social history:: Smoking status: Patient/guardian denies using tobacco. - Ebola Screening: : No symptoms or risks identified at this time. ROS: 20:47 Constitutional: Negative for fever, chills, and weight loss, Eyes: Negative for injury, kdr pain, redness, and discharge, Neck: Negative for injury, pain, and swelling, Cardiovascular: Negative for chest pain, palpitations, and edema, Respiratory: Negative for shortness of breath, cough, wheezing, and pleuritic chest pain, Back: Negative for injury and pain, : Negative for injury, bleeding, discharge, and swelling, MS/Extremity: Negative for injury and deformity, Skin: Negative for injury, rash, and discoloration, Neuro: Negative for headache, weakness, numbness, tingling, and seizure activity. Psych: Negative for depression, anxiety, suicide ideation, homicidal ideation, and hallucinations, Allergy/Immunology: Negative for hives, rash, and allergies, Endocrine: Negative for neck swelling, polydipsia, polyuria, polyphagia, and marked weight changes, Hematologic/Lymphatic: Negative for swollen nodes, abnormal bleeding, and unusual bruising. 20:47 Abdomen/GI: Positive for abdominal pain, nausea and vomiting, Negative for diarrhea, constipation, abdominal cramps, abdominal distension, anorexia, black/tarry stool, rectal pain, rectal bleeding, bowel incontinence. Exam: 20:47 Constitutional: This is a well developed, well nourished patient who is awake, alert, kdr and in no acute distress. Head/Face: Normocephalic, atraumatic. Eyes: Pupils equal round and reactive to light, extra-ocular motions intact. Lids and lashes normal. Conjunctiva and sclera are non-icteric and not injected. Cornea within normal limits. Periorbital areas with no swelling, redness, or edema. Neck: Trachea midline, no thyromegaly or masses palpated, and no cervical lymphadenopathy. Supple, full range of motion without nuchal rigidity, or vertebral point tenderness. No Meningismus. Chest/axilla: Normal chest wall appearance and motion. Nontender with no deformity. No lesions are appreciated. Cardiovascular: Regular rate and rhythm with a normal S1 and S2. No gallops, murmurs, or rubs. Normal PMI, no JVD. No pulse deficits. Respiratory: Lungs have equal breath sounds bilaterally, clear to auscultation and percussion. No rales, rhonchi or wheezes noted. No increased work of breathing, no retractions or nasal flaring. Back: No spinal tenderness. No costovertebral tenderness. Full range of motion. Skin: Warm, dry with normal turgor. Normal color with no rashes, no lesions, and no evidence of cellulitis. MS/ Extremity: Pulses equal, no cyanosis. Neurovascular intact. Full, normal range of motion. Neuro: Awake and alert, GCS 15, oriented to person, place, time, and situation. Cranial nerves II-XII grossly intact. Motor strength 5/5 in all extremities. Sensory grossly intact. Cerebellar exam normal. Normal gait. Psych: Awake, alert, with orientation to person, place and time. Behavior, mood, and affect are within normal limits. 20:47 Abdomen/GI: Inspection: abdomen appears normal, Bowel sounds: active, Palpation: soft, mild abdominal tenderness, in the epigastric area. Vital Signs: 18:18 BP 124 / 98; Pulse 108; Resp 15; Temp 97.6; Pulse Ox 100% ; Weight 63.5 kg; Height 5 sv ft. 1 in. (154.94 cm); Pain 8/10; 19:26 BP 115 / 75; Pulse 114; Resp 16; Pulse Ox 100% on R/A; aj1 18:18 Body Mass Index 26.45 (63.50 kg, 154.94 cm) sv MDM: 20:34 Patient medically screened. kdr 20:47 Data reviewed: vital signs, nurses notes, lab test result(s). Counseling: I had a kdr detailed discussion with the patient and/or guardian regarding: the historical points, exam findings, and any diagnostic results supporting the discharge/admit diagnosis, lab results, the need for outpatient follow up. ED course: The patient refused further treatment or evaluation and asked to leave. 12/06 18:32 Order name: Urine Dipstick--Ancillary (enter results); Complete Time: 19:32 ds4 12/06 18:32 Order name: Urine --Ancillary (enter results); Complete Time: 19:32 ds4 12/06 18:41 Order name: Quantitative Hcg; Complete Time: 20:31 kdr 12/06 18:41 Order name: Abo/rh Typing; Complete Time: 20:47 kdr 12/06 18:41 Order name: Basic Metabolic Panel; Complete Time: 20:31 kdr 12/06 18:41 Order name: CBC with Diff; Complete Time: 20:31 kdr 12/06 18:32 Order name: Urine Dipstick-Ancillary (obtain specimen); Complete Time: 18:32 ds4 12/06 18:32 Order name: Urine Test (obtain specimen); Complete Time: 18:32 ds4 12/06 18:41 Order name: IV Saline Lock; Complete Time: 19:26 kdr 12/06 18:41 Order name: Labs collected and sent; Complete Time: 19:26 kdr 12/06 18:41 Order name: NPO; Complete Time: 19:26 kdr Administered Medications: 19:45 Drug: NS 0.9% 1000 ml Route: IV; Rate: 1000 ml; Site: left antecubital; lp1 20:40 Follow up: IV Status: IV converted to saline lock; IV Intake: 800ml lp1 19:45 Drug: Zofran 4 mg Route: IVP; Site: left antecubital; lp1 20:00 Follow up: Response: Nausea unchanged lp1 19:46 Drug: Pepcid 20 mg Route: IVP; Site: left antecubital; lp1 20:41 Follow up: Response: No adverse reaction lp1 20:14 Drug: Reglan 10 mg Route: IVP; Site: left antecubital; kr2 20:41 Follow up: Response: Marked relief of symptoms; Nausea is decreased lp1 20:40 Drug: Potassium Chloride 40 mEq Route: PO; lp1 20:41 Follow up: Response: Medication administered at discharge. lp1 Disposition: 12/06/17 20:34 Discharged to Home. Impression: Vomiting, related conditions, unspecified. - Condition is Fair. - Discharge Instructions: Nausea and Vomiting, Adult, [id number], Heartburn During , [id number]. - Prescriptions for Pepcid 20 mg Oral Tablet - take 1 tablet by ORAL route every 12 hours for 5 days; 10 tablet. Reglan 10 mg Oral Tablet - take 1 tablet by ORAL route every 6 hours take 30 minutes before meals and at bedtime; 20 tablet. - Medication Reconciliation Form, Thank You Letter, Antibiotic Education, Prescription Opioid Use form. - Follow up: Private Physician; When: 2 - 3 days; Reason: If symptoms return, Further diagnostic work-up, Recheck today's complaints, Continuance of care, Re-evaluation by your physician. - Problem is new. - Symptoms have improved. Signatures: Dispatcher [employer] EDNY Janet Estrella RN RN Eduardo Antunez MD MD kdr Pena, Laura, RN RN lp1 Ever Jones ds4 Ana Lilia Briones RN RN kr2 Corrections: (The following items were deleted from the chart) 20:54 20:34 12/06/2017 20:34 Discharged to Home. Impression: Vomiting; related lp1 conditions, unspecified. Condition is Fair. Forms are Medication Reconciliation Form, Thank You Letter, Antibiotic Education, Prescription Opioid Use. Follow up: Private Physician; When: 2 - 3 days; Reason: If symptoms return, Further diagnostic work-up, Recheck today's complaints, Continuance of care, Re-evaluation by your physician. Problem is new. Symptoms have improved. kdr
[2017-12-06] MEDS ORDERED: POTASSIUM CL SA 10 MEQ TAB PO ONE (20:42)
[2017-12-06 20:59] VITALS: TEMP 97.6; O2SAT 100
[2017-12-06 21:00] VITALS: BP 115/75
== END 2017-12-06 20:54 | disposition home or self-care (01) ==
LOC: ER 17:58
DX: O21.9 Vomiting of pregnancy, unspecified (principal); Z3A.00 Weeks of gestation of pregnancy not specified
CPT/HCPCS: 36415; 80048; 81003; 81025; 84702; 85025; 86900; 86901; 96361; 96374; 96375; 99284; J2405; J2765; J7030

== ENCOUNTER 2017-12-24 11:30 | Emergency (ER) | payer OTHER, SELFPAY ==
[2017-12-24] MEDS ORDERED: ONDANSETRON 4 MG/2 ML VIAL ONE (13:26)
[2017-12-24] MEDS ORDERED: MORPHINE 4 MG/ML SYR ONE (13:26)
[2017-12-24] MEDS ORDERED: NA CHLORIDE 0.9% 1,000 ML ONE (13:26)
[2017-12-24 13:28] LABS: Absolute Lymphocytes (CBC) 1.1 K/uL (0.7-4.9); Absolute Monocytes 0.7 K/uL (0.1-1.3); Absolute Neutrophil 7.6 K/uL (1.8-8.0); Basophils % 0.4 % (0-1.3); Eosinophils % 0.1 % (0-4.4); Hematocrit 31.3 % (36.0-45.0); MCV 78.6 fL (80-100); MPV 8.5 fL (7.6-11.3); Monocytes % 6.9 % (3.3-12.3); RBC Red Blood Cell Count 3.98 M/uL (3.86-4.86)
[2017-12-24 13:50] LABS: BUN Blood Urea Nitrogen 8 mg/dL (7-18); Bicarbonate 23 mmol/L (21-32); Glucose Level 98 mg/dL (74-106); Potassium 3.4 mmol/L (3.5-5.1); Sodium Level 135 mmol/L (136-145)
[2017-12-24 13:53] LABS: Urine RBC LOADED /HPF (NONE SEEN)
[2017-12-24 13:56] LABS: Urine Bacteria <20 /HPF (<20); Urine Culture Reflex Order NOT NEEDED
--- NOTE | 2017-12-24 14:38 | RAD REPORT ---
EXAM DESCRIPTION: US - OB Limited - 12/24/2017 2:08 pm CLINICAL HISTORY: with pelvic pain COMPARISON: None FINDINGS: Single live into is in breech presentation. Placenta is posterior. Amniotic flui d is within normal limits. Cardiac activity 160 beats per minute. Cervix 3.6 centimeters BPD 2 centimeters 13 weeks 2 days HC 7.6 centimeters 13 weeks 1 day AC 6.7 centimeters 13 weeks 2 days FL 1.2 centimeters 13 weeks 3 days Estimated weight 74 grams Evaluation of the right and left adnexae is unremarkable IMPRESSION: Single live intrauterine with an estimated gestational age 13 weeks 2 days ADAN 06/29/2018 Breech presentation If a survey is desired it should be performed in approximately 5 weeks
[2017-12-24 15:10] LABS: Urine Blood 3+ (NEG); Urine Glucose NEGATIVE (NEG); Urine Protein 1+ (NEG); Urine pH 8.5 (5.0-7.0)
--- NOTE | 2017-12-24 15:49 | ER ---
Nurse's Notes [facility] Name: Roselyn Maosn Age: 22 yrs Sex: Female : 1995 Arrival Date: 12/24/2017 Time: 11:33 Bed 23 Private MD: Nazario Zavala B Diagnosis: Threatened Presentation: 12/24 11:42 Presenting complaint: Patient states: vaginal bleeding, lower abd pain, and left low aa5 back pain that began approximately 40 minutes ago. Pt reports being 15 weeks . Transition of care: patient was not received from another setting of care. Onset of symptoms was December 2017. Risk Assessment: Do you want to hurt yourself or someone else? Patient reports no desire to harm self or others. Initial Sepsis Screen: Does the patient meet any 2 criteria? No. Patient's initial sepsis screen is negative. Does the patient have a suspected source of infection? No. Patient's initial sepsis screen is negative. Care prior to arrival: None. 11:42 Method Of Arrival: Ambulatory aa5 11:42 Acuity: TABITHA 3 aa5 Triage Assessment: 13:15 General: Appears in no apparent distress. uncomfortable, well groomed, well developed, kr2 well nourished, Behavior is calm, cooperative, appropriate for age. Pain: Complains of pain in pelvis Pain radiates to back Pain currently is 10 out of 10 on a pain scale. Quality of pain is described as aching, crampy, pressure, Pain began 1 hour ago. Is continuous, Alleviated by nothing. Aggravated by repositioning. EENT: Oral mucosa is moist. Neuro: Level of Consciousness is awake, alert, obeys commands, Oriented to person, place, time, situation. Cardiovascular: Capillary refill < 3 seconds in bilateral fingers Patient's skin is warm and dry. Respiratory: Airway is patent Respiratory effort is even, unlabored, Respiratory pattern is regular, symmetrical. GI: Abdomen is round non-distended, Reports nausea. : Reports vaginal bleeding that is bright red, moderate flow, since 1 hour ago. Derm: Skin is intact, is healthy with good turgor, Skin is pink, warm \T\ dry. Musculoskeletal: Circulation, motion, and sensation intact. 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 - Social history:: Smoking status: Patient/guardian denies using tobacco. - Ebola Screening: : No symptoms or risks identified at this time. Screenin:15 Abuse screen: Denies threats or abuse. Denies injuries from another. Nutritional kr2 screening: No deficits noted. Tuberculosis screening: No symptoms or risk factors identified. Fall Risk Assessment: 13:33 Reassessment: See triage assessment, ultrasound in room at this time. kr2 14:12 Reassessment: Patient appears in no apparent distress at this time. Patient and/or kr2 family updated on plan of care and expected duration. Pain level reassessed. Patient is alert, oriented x 3, equal unlabored respirations, skin warm/dry/pink. Patient states symptoms have improved. 14:45 Reassessment: Patient appears in no apparent distress at this time. Patient and/or kr2 family updated on plan of care and expected duration. Pain level reassessed. Patient is alert, oriented x 3, equal unlabored respirations, skin warm/dry/pink. Given apple juice as requested and ok 'd by provider. Patient states feeling better. Patient states symptoms have improved. Vital Signs: 11:43 BP 129 / 92; Pulse 113; Resp 18 S; Temp 98.0(TE); Pulse Ox 99% on R/A; Weight 68.04 kg aa5 (R); Height 5 ft. 1 in. (154.94 cm) (R); Pain 8/10; 13:34 BP 120 / 74; Pulse 100; Resp 22; Pulse Ox 100% on R/A; kr2 14:48 BP 118 / 80; Pulse 89; Resp 17; Pulse Ox 100% on R/A; kr2 16:00 BP 122 / 76; Pulse 90; Resp 19; Pulse Ox 99% on R/A; kr2 11:43 Body Mass Index 28.34 (68.04 kg, 154.94 cm) aa ED Course: 11:33 Patient arrived in ED. as 11:34 Nazario Zavala MD is Private Physician. as 11:43 Triage completed. aa5 11:43 Arm band placed on. aa5 12:57 [facility] 12:57 Prabhjot Fowler MD is Attending Physician. jm 13:02 Ana Lilia Briones, GENE is Primary Nurse. kr2 13:15 Patient has correct armband on for positive identification. Bed in low position. Call kr2 light in reach. Side rails up X 1. Adult w/ patient. Pulse ox on. NIBP on. Door closed. Warm blanket given. Head of bed elevated. 13:15 Inserted saline lock: 20 gauge in right antecubital area, using aseptic technique. kr2 Blood collected. 13:36 Initial lab(s) drawn, by ED staff, sent to lab. Urine collected: clean catch specimen, jp3 clear, rhoda colored, Amount Voided: 10mL. 13:37 Urine --Ancillary (enter results) Sent. jp3 13:37 Urine Dipstick--Ancillary (enter results) Sent. jp3 14:00 Assist provider with pelvic exam: Performed by Bill OVERTON Patient tolerated well. kr2 Patient given personal cleansing wipes, wash cloth, luiz pad and mesh panties for personal care. 14:03 Ultrasound completed. Patient tolerated well. Notified SHIRT PRESSER/BROOKLYNN BHAGAT. sg3 14:09 US OB Limited In Process Unspecified. EDMS 15:48 Nazario Zavala MD is Referral Physician. jmm 16:15 IV discontinued, intact, bleeding controlled, No redness/swelling at site. Pressure kr2 dressing applied. Administered Medications: 13:25 Drug: Zofran 4 mg Route: IVP; Site: right antecubital; kr2 13:53 Follow up: Response: No adverse reaction kr2 13:26 Drug: NS 0.9% 1000 ml Route: IV; Rate: 1000 ml; Site: right antecubital; kr2 15:45 Follow up: Response: No adverse reaction; IV Status: Completed infusion kr2 13:26 Drug: morphine 4 mg Route: IVP; Site: right antecubital; kr2 13:53 Follow up: Response: No adverse reaction; Pain is decreased kr2 Outcome: 15:49 Discharge ordered by . jmm 16:15 Discharged to home via wheelchair, with family. kr2 16:15 Condition: stable 16:15 Discharge instructions given to patient, family, Instructed on discharge instructions, follow up and referral plans. Demonstrated understanding of instructions, follow-up care. 16:16 Patient left the ED. kr2 Signatures: Dispatcher [employer] EDBill Brewer PA PA jmm Martinez, Amelia as Calderon, Audri RN RN aa5 Ana Lilia Briones RN RN kr2 Janina Carpenter 3 Guicho Kline jp3 Corrections: (The following items were deleted from the chart) 11:47 11:42 Presenting complaint: Patient states: vaginal bleeding, lower abd pain, and left aa5 low back pain that began approximately 40 minutes ago. aa5 14:48 14:00 Assist provider with pelvic exam: Performed by Bill OVERTON Patient tolerated kr2 well. kr2
--- NOTE | 2017-12-24 15:50 | EDPHYS ---
Physician Documentation [facility] Name: Roselyn Mason Age: 22 yrs Sex: Female : 1995 Arrival Date: 12/24/2017 Time: 11:33 Bed 23 Private MD: Nazario Zavala B ED Physician Prabhjot Fowler HPI: 12/24 13:11 This 22 yrs old Female presents to ER via Ambulatory with complaints of jmm Vaginal Bleeding - +Preg 15 Wks, Abdominal Cramping, Back Pain. 13:11 The patient presents with vaginal bleeding that is heavy. Onset: The symptoms/episode jmm began/occurred acutely, 2 hour(s) ago. Modifying factors: The symptoms are alleviated by nothing, the symptoms are aggravated by nothing. Associated signs and symptoms: Pertinent positives: back pain. This is a that presents to the ED with vaginal bleeding, abdominal pain, and lower back pain beginning approx 1.5 hours ago while attempting to the use the restroom. . 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 - Social history:: Smoking status: Patient/guardian denies using tobacco. - Ebola Screening: : No symptoms or risks identified at this time. ROS: 13:11 Constitutional: Negative for fever, chills, and weight loss, Cardiovascular: Negative jmm for chest pain, palpitations, and edema, Respiratory: Negative for shortness of breath, cough, wheezing, and pleuritic chest pain. 13:11 Abdomen/GI: Positive for abdominal pain. 13:11 Back: Positive for radiated pain. 13:11 : Positive for vaginal bleeding. 13:11 All other systems are negative. Exam: 13:11 Head/Face: atraumatic. Chest/axilla: Normal chest wall appearance and motion. jmm Cardiovascular: Regular rate and rhythm. No edema appreciated Respiratory: Normal respirations, no respiratory distress appreciated Abdomen/GI: Non distended, soft Skin: General appearance color normal MS/ Extremity: Moves all extremities, no obvious deformities appreciated, no edema noted to the lower extremities Neuro: Awake and alert, normal gait Psych: Behavior is normal, Mood is normal, Patient is cooperative and pleasant 13:11 Constitutional: The patient appears alert, awake, anxious, uncomfortable. 14:11 : Pelvic Exam: Speculum exam: moderate bleeding, os that is closed. [facility] Vital Signs: 11:43 BP 129 / 92; Pulse 113; Resp 18 S; Temp 98.0(TE); Pulse Ox 99% on R/A; Weight 68.04 kg aa5 (R); Height 5 ft. 1 in. (154.94 cm) (R); Pain 8/10; 13:34 BP 120 / 74; Pulse 100; Resp 22; Pulse Ox 100% on R/A; kr2 14:48 BP 118 / 80; Pulse 89; Resp 17; Pulse Ox 100% on R/A; kr2 16:00 BP 122 / 76; Pulse 90; Resp 19; Pulse Ox 99% on R/A; kr2 11:43 Body Mass Index 28.34 (68.04 kg, 154.94 cm) aa5 MDM: 13:10 Patient medically screened. [facility] 13:45 Data reviewed: vital signs, nurses notes. [facility] 14:11 Counseling: I had a detailed discussion with the patient and/or guardian regarding: the [facility] historical points, exam findings, and any diagnostic results supporting the discharge/admit diagnosis. 15:38 Counseling: I had a detailed discussion with the patient and/or guardian regarding: lab [facility] results, radiology results, to return to the emergency department if symptoms worsen or persist or if there are any questions or concerns that arise at home. 15:38 Data reviewed: lab test result(s), radiologic studies. [facility] 15:38 ED course: Patient is stable and non toxic in appearance in the ED. Pain is mildly [facility] relieved. Patient advsed to follow up with OB for further evaluation along with concerns of possible miscarriage. Patient given strict return precautions for increased pain, bleeding, weakness, ect, patient understood and agrees with the plan of care. . 12/24 12:16 Order name: Urine Microscopic Only; Complete Time: 14:37 rn 12/24 12:59 Order name: Abo/rh Typing; Complete Time: 14:37 jmm 12/24 12:59 Order name: Basic Metabolic Panel; Complete Time: 14:37 [facility] 12/24 12:59 Order name: CBC with Diff; Complete Time: 13:49 [facility] 12/24 13:15 Order name: Type And Screen [facility] 12/24 12:14 Order name: US OB Limited; Complete Time: 14:41 rn 12/24 12:16 Order name: Urine Dipstick-Ancillary (obtain specimen); Complete Time: 13:17 rn 12/24 13:30 Order name: Urine Dipstick--Ancillary (enter results); Complete Time: 19:39 eb 12/24 13:30 Order name: Urine --Ancillary (enter results); Complete Time: 19:39 eb 12/24 13:51 Order name: Antibody Screen; Complete Time: 14:37 [facility] 12/24 12:59 Order name: IV Saline Lock; Complete Time: 13:17 [facility] 12/24 12:59 Order name: Labs collected and sent; Complete Time: 13:17 [facility] 12/24 12:59 Order name: NPO; Complete Time: 13:03 [facility] 12/24 13:41 Order name: Pelvic Exam Setup; Complete Time: 13:53 [facility] Administered Medications: 13:25 Drug: Zofran 4 mg Route: IVP; Site: right antecubital; kr2 13:53 Follow up: Response: No adverse reaction kr2 13:26 Drug: NS 0.9% 1000 ml Route: IV; Rate: 1000 ml; Site: right antecubital; kr2 15:45 Follow up: Response: No adverse reaction; IV Status: Completed infusion kr2 13:26 Drug: morphine 4 mg Route: IVP; Site: right antecubital; kr2 13:53 Follow up: Response: No adverse reaction; Pain is decreased kr2 Disposition: 15:48 Chart complete. [facility] 18:50 Co-signature as Attending Physician, Prabhjot Fowler MD. rn Disposition: 12/24/17 15:49 Discharged to Home. Impression: Threatened . - Condition is Stable. - Discharge Instructions: Threatened Miscarriage. - Medication Reconciliation Form, Thank You Letter, Antibiotic Education, Prescription Opioid Use form. - Follow up: Nazario Zavala MD; When: 2 - 3 days; Reason: Recheck today's complaints, Continuance of care, Re-evaluation by your physician. Signatures: Dispatcher [employer] EDPR Bill Massey PA PA Prabhjot Johnson MD MD rn Calderon, Audri, RN RN aa5 Ana Lilia Briones RN RN kr2 Corrections: (The following items were deleted from the chart) 13:51 13:16 Type and Screen ordered. [facility] 16:16 15:49 12/24/2017 15:49 Discharged to Home. Impression: Threatened . Condition kr2 is Stable. Forms are Medication Reconciliation Form, Thank You Letter, Antibiotic Education, Prescription Opioid Use. Follow up: Nazario Zavala; When: 2 - 3 days; Reason: Recheck today's complaints, Continuance of care, Re-evaluation by your physician. karina
[2017-12-24 16:42] VITALS: TEMP 98
[2017-12-24 16:45] VITALS: O2SAT 100
[2017-12-24 16:46] VITALS: BP 118/80
== END 2017-12-24 16:16 | disposition home or self-care (01) ==
LOC: ER 11:30
DX: O20.0 Threatened abortion (principal); Z3A.15 15 weeks gestation of pregnancy
CPT/HCPCS: 36415; 76815; 80048; 81003; 81015; 81025; 85025; 86850; 86900; 86901; 96361; 96374; 96375; 99284; J2405; J7030

== ENCOUNTER 2018-04-17 10:28 | Emergency (ER) | payer OTHER ==
--- NOTE | 2018-04-17 11:33 | EDPHYS ---
Physician Documentation [facility] Name: Roselyn Mason Age: 22 yrs Sex: Female : 1995 Arrival Date: 04/17/2018 Time: 10:31 Bed 10 Private MD: ED Physician Filippo Mills HPI: 04/17 11:33 This 22 yrs old Female presents to ER via Ambulatory with complaints of kb Infected toe. 11:34 the patient presents with a swollen area of the right first toe. Description: kb erythematous, swollen. Onset: The symptoms/episode began/occurred yesterday. Possible cause(s): ingrown nail. Associated signs and symptoms: Pertinent positives: drainage, erythema, swelling, Pertinent negatives: foreign body sensation, fever, headache, nausea, shortness of breath, vomiting. Modifying factors: the symptoms are alleviated by nothing, the symptoms are aggravated by touching. Severity of symptoms: At their worst the symptoms were mild, moderate, in the emergency department the symptoms are unchanged. The patient has not experienced similar symptoms in the past. Pt states she had an ingrown nail, tried to cut it out last night and today it has been red, swollen and draining. . 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 - Ebola Screening: : No symptoms or risks identified at this time. ROS: 11:34 Constitutional: Negative for fever, chills, and weight loss, Cardiovascular: Negative kb for chest pain, palpitations, and edema, Respiratory: Negative for shortness of breath, cough, wheezing, and pleuritic chest pain, Abdomen/GI: Negative for abdominal pain, nausea, vomiting, diarrhea, and constipation, MS/Extremity: Negative for injury and deformity, Neuro: Negative for headache, weakness, numbness, tingling, and seizure. 11:34 Skin: Positive for erythema, swelling, of the right first toe. Exam: 11:35 Constitutional: This is a well developed, well nourished patient who is awake, alert, kb and in no acute distress. Head/Face: Normocephalic, atraumatic. Chest/axilla: Normal chest wall appearance and motion. Nontender with no deformity. No lesions are appreciated. Cardiovascular: Regular rate and rhythm with a normal S1 and S2. No gallops, murmurs, or rubs. Normal PMI, no JVD. No pulse deficits. Respiratory: Lungs have equal breath sounds bilaterally, clear to auscultation and percussion. No rales, rhonchi or wheezes noted. No increased work of breathing, no retractions or nasal flaring. Abdomen/GI: Soft, non-tender, with normal bowel sounds. No distension or tympany. No guarding or rebound. No evidence of tenderness throughout. MS/ Extremity: Pulses equal, no cyanosis. Neurovascular intact. Full, normal range of motion. Neuro: Awake and alert, GCS 15, oriented to person, place, time, and situation. Cranial nerves II-XII grossly intact. Motor strength 5/5 in all extremities. Sensory grossly intact. Cerebellar exam normal. Normal gait. 11:35 Skin: Appearance: normal except for affected area, Color: erythematous, swelling, noted on the right first toe, that are mild, that are moderate. Vital Signs: 10:33 BP 125 / 86; Pulse 99; Resp 18; Temp 97.2; Pulse Ox 100% ; Weight 72.57 kg; Height 5 sv ft. 1 in. (154.94 cm); Pain 8/10; 10:33 Body Mass Index 30.23 (72.57 kg, 154.94 cm) sv MDM: 10:45 Patient medically screened. kb 11:33 Data reviewed: vital signs, nurses notes. Data interpreted: Pulse oximetry: on room air kb is 100 %. Interpretation: normal. 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 Administered Medications: 11:54 Drug: KeFLEX 500 mg Route: PO; iw Disposition: 17:41 Co-signature as Attending Physician, Filippo Mills MD. ma2 Disposition: 04/17/18 11:32 Discharged to Home. Impression: Ingrowing nail. - Condition is Stable. - Discharge Instructions: Ingrown Toenail. - Prescriptions for Keflex 500 mg Oral Capsule - take 1 capsule by ORAL route every 8 hours for 7 days; 21 capsule. - Medication Reconciliation Form, Thank You Letter, Antibiotic Education, Prescription Opioid Use form. - Family Work Release (04/17/18 11:58). iw - Follow up: Emergency Department; When: As needed; Reason: Worsening of condition. Follow up: Private Physician; When: 2 - 3 days; Reason: Recheck today's complaints, Continuance of care, Re-evaluation by your physician. Signatures: Jaz Dailey, ADDISON IVERSON-Janet Batista RN RN sv Natividad Bain RN RN iw Filippo Mills MD MD ma2 Corrections: (The following items were deleted from the chart) 11:56 11:32 04/17/2018 11:32 Discharged to Home. Impression: Ingrowing nail. Condition is iw Stable. Forms are Medication Reconciliation Form, Thank You Letter, Antibiotic Education, Prescription Opioid Use. Follow up: Emergency Department; When: As needed; Reason: Worsening of condition. Follow up: Private Physician; When: 2 - 3 days; Reason: Recheck today's complaints, Continuance of care, Re-evaluation by your physician. kb
--- NOTE | 2018-04-17 11:33 | ER ---
Nurse's Notes [facility] Name: Roselyn Mason Age: 22 yrs Sex: Female : 1995 Arrival Date: 04/17/2018 Time: 10:31 Bed 10 Private MD: Diagnosis: Ingrowing nail Presentation: 04/17 10:32 Presenting complaint: Patient states: ingrown toe nail to the right great toe since sv Tuesday. Transition of care: patient was not received from another setting of care. Onset of symptoms was April 14, 2018. Care prior to arrival: None. 10:32 Method Of Arrival: Ambulatory sv 10:32 Acuity: TABITHA 4 sv 11:00 Risk Assessment: Do you want to hurt yourself or someone else? Patient reports no iw desire to harm self or others. Initial Sepsis Screen: Does the patient meet any 2 criteria? No. Patient's initial sepsis screen is negative. Does the patient have a suspected source of infection? No. Patient's initial sepsis screen is negative. 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 - Ebola Screening: : No symptoms or risks identified at this time. Screenin:07 Abuse screen: Denies threats or abuse. Denies injuries from another. Nutritional iw screening: No deficits noted. Tuberculosis screening: No symptoms or risk factors identified. Fall Risk None identified. Assessment: 11:05 General: Appears in no apparent distress. Behavior is calm, cooperative. Pain: iw Complains of pain in Right first toenail. Neuro: Level of Consciousness is awake, alert, obeys commands, Oriented to person, place, time, situation, Moves all extremities. Cardiovascular: Patient's skin is warm and dry. Respiratory: Respiratory effort is even, unlabored, Respiratory pattern is regular. Derm: Skin is intact, is healthy with good turgor, redness, bruising, swelling noted outer right toe nail, pt states she tried to dig out her ingrown toenail 4-5 days ago and has been in pain over the weekend. Musculoskeletal: Reports pain in right first toe and Right first toenail. Vital Signs: 10:33 BP 125 / 86; Pulse 99; Resp 18; Temp 97.2; Pulse Ox 100% ; Weight 72.57 kg; Height 5 sv ft. 1 in. (154.94 cm); Pain 8/10; 10:33 Body Mass Index 30.23 (72.57 kg, 154.94 cm) sv ED Course: 10:31 Patient arrived in ED. mr 10:32 Triage completed. sv 10:33 Arm band placed on. sv 10:42 Natividad Bain, RN is Primary Nurse. iw 10:44 Jaz Dailey FNP-C is PHCP. kb 10:44 Filippo Mills MD is Attending Physician. kb 11:00 Patient has correct armband on for positive identification. iw 11:55 No provider procedures requiring assistance completed. Patient did not have IV access iw during this emergency room visit. Administered Medications: 11:54 Drug: KeFLEX 500 mg Route: PO; iw Outcome: 11:32 Discharge ordered by MD. kb 11:55 Discharged to home ambulatory, with family. iw 11:55 Condition: good 11:55 Discharge instructions given to patient, family, Instructed on discharge instructions, follow up and referral plans. medication usage, Demonstrated understanding of instructions, follow-up care, medications, Prescriptions given X 1. 11:56 Patient left the ED. iw Signatures: Jaz Dailey FNP-C FNP-Ckb Verde, Stephanie RN GENE Brenda Clifton mr Natividad Bain, RN GENE iw
[2018-04-17 12:02] VITALS: BP 125/86; TEMP 97.2; O2SAT 100
== END 2018-04-17 11:56 | disposition home or self-care (01) ==
LOC: ER 10:28
DX: L60.0 Ingrowing nail (principal)
CPT/HCPCS: 99283

== ENCOUNTER 2018-06-15 21:52 | Inpatient (IN) | payer OTHER ==
[2018-06-15] MEDS ORDERED: CARBOPROST TROME 250 MCG/ML IM PRN (23:12)
[2018-06-15] MEDS ORDERED: Ringers Lactate 1,000 ML IV PRN (23:12)
[2018-06-15] MEDS ORDERED: METHYLERGONOVINE 0.2MG/ML AMP IM PRN (23:12)
[2018-06-15] MEDS ORDERED: PROMETHAZINE 25 MG/ML VIAL IM ONE (23:17)
[2018-06-15] MEDS ORDERED: BUTORPHANOL 1 MG/ML INJ IV ONE (23:17)
[2018-06-15 23:35] LABS: RPR Titer ND
[2018-06-15] MEDS ORDERED: Ringers Lactate 1,000 ML IV SCH (23:45)
[2018-06-15] MEDS ORDERED: OXYTOCIN/LR 20 UNITS/1,000 ML BAG IV SCH (23:45)
[2018-06-15 23:51] LABS: Urine Appearance CLEAR; Urine Bilirubin NEGATIVE (NEG); Urine Blood NEGATIVE (NEG); Urine Color YELLOW; Urine Glucose NEGATIVE (NEG); Urine Protein NEGATIVE (NEG); Urine Specific Gravity 1.015 (1.005-1.030); Urine Urobilinogen 0.2 mg/dL (0.2-1.0)
[2018-06-15 23:54] LABS: Absolute Lymphocytes (CBC) 2.3 K/uL (0.7-4.9); Absolute Monocytes 0.6 K/uL (0.1-1.3); Absolute Neutrophil 5.5 K/uL (1.8-8.0); Basophils % 0.5 % (0-1.3); Eosinophils % 0.5 % (0-4.4); Hematocrit 25.3 % (36.0-45.0); Lymphocytes % 26.8 % (15.3-44.8); Monocytes % 6.9 % (3.3-12.3); RBC Red Blood Cell Count 3.43 M/uL (3.86-4.86)
[2018-06-16] MEDS ORDERED: FENTANYL CITR 100 MCG/2 ML IV ONE (00:08)
[2018-06-16 00:12] LABS: Urine Microscopic Reflex NO UMIC
[2018-06-16] MEDS ORDERED: ROPIVACAINE HCL 100 ML IV PRN (00:12)
[2018-06-16] MEDS ORDERED: FENTANYL/BUPIVACAINE/NS/PF 200 MCG/100 ML BAG EP ONE (00:31)
[2018-06-16 01:22] VITALS: BMI 32.5
[2018-06-16] MEDS ORDERED: LIDOCAINE 1% MPF 30 ML VIAL ONE (03:13)
[2018-06-16] MEDS ORDERED: BISACODYL 10 MG RECTAL SUPP RECT PRN (03:29)
[2018-06-16] MEDS ORDERED: DIPHENHYDRAMINE 25 MG TAB/CAP PO PRN (03:29)
[2018-06-16] MEDS ORDERED: Oxycodone HCl/Acetaminophen 1 TAB TAB PO PRN (03:29)
[2018-06-16] MEDS ORDERED: DOCUSATE NA/SENNA CONC 1 TAB PO PRN (03:29)
[2018-06-16] MEDS ORDERED: OXYTOCIN/LR 20 UNIT/1,000 ML BAG IV SCH (04:00)
[2018-06-16] MEDS: Oxycodone HCl/Acetaminophen 1 TAB TAB PO PRN ×4 (04:50→19:59)
--- NOTE | 2018-06-16 07:38 | OP ---
Surgeon: Nazario Zavala MD Procedure Note: A 23-year-old, 5, para 2, 38 weeks 2 days, came in in active labor. During the labor, received Stadol 1 mg IV, then epidural anesthesia. Second stage of 15 minutes or less. S pontaneous vaginal delivery of a 7-pound, 3-ounce male , Apgars 9 and 9. No episiotomy. No la ceration. Croft delivery of the placenta, which was inspected and noted to be intact and normal. L ess than 300 cc blood loss. Tolerated all procedures well. She is Rh positive. Immune to Rubella. Negative beta strep. Final Diagnoses: Term intrauterine at 38 weeks 2 days, spontaneous labor, vaginal delivery , epidural anesthesia. KRISTEN/FAUZIA Voice ID: [id number] Report ID: [id number]
--- NOTE | 2018-06-16 07:41 | PREOPHP ---
Date of Admission: 06/15/2018 This is a 23-year-old female, 5, para 2, 38 weeks 2 days, came in, noted to be in active labo r, admitted. Rh positive. Immune to Rubella. Negative beta strep screen. Anticipated vaginal deli very. KRISTEN/FAUZIA Voice ID: [id number]
[2018-06-16] MEDS: IBUPROFEN 200 MG TAB PO PRN ×2 (10:20→18:05)
[2018-06-16 20:55] LABS: RPR (Rapid Plasma Reagin) NON-REACT (NON-REACT)
[2018-06-17] MEDS: IBUPROFEN 200 MG TAB PO PRN (02:10)
[2018-06-17] MEDS: Oxycodone HCl/Acetaminophen 1 TAB TAB PO PRN (07:19)
[2018-06-17 07:50] VITALS: BP 116/81; TEMP 97.3
--- NOTE | 2018-06-19 08:35 | DS ---
Date of Discharge: 06/17/2018 Hospital Course: A 23-year-old multiparous female, 5, para 2, at 38 weeks and 2 days. Came in active labor. Delivered a 7-pound 3-ounce male , Apgars 9 and 9. No episiotomy. No lacera tion. Second stage 15 minutes or less. Delivery of the placenta, which was inspected and noted to b e intact and normal. A 300 cc blood loss. Rh positive, immune to Rubella. Negative beta strep scre en. The patient has been anemic the entire and has either been resistant to iron or noncom pliant in taking it. Again, anemia discussed with the patient. She is encouraged to take iron pills after her discharge from the hospital. She has no post epidural problems, but is having significant afterpains. She delivered early this morning, so we will keep her until tomorrow. She will call [facility] office today and make an appointment to come back and see me in 6 weeks, but she knows if she has f ever, severe pain, heavy bleeding, or any other type of problems, to come see me sooner. Dismissed w ith tramadol for her cramping. Full post dismissal instructions given. Final Diagnoses: Term intrauterine 38 weeks 2 days, vaginal delivery, epidural anesthesia, preexisting anemia. KRISTEN/FAUZIA Voice ID: [id number] Report ID: [id number]
[2018-06-21 20:02] LABS: HBsAG Nonreactive (Nonreactive)
== END 2018-06-17 11:00 | disposition home or self-care (01) | DRG 807 ==
LOC: L&D 21:52 → 2ND-WC 22:53
PROVIDERS: ADMIT Specialist; ATTEND Specialist
PROC: 10E0XZZ Delivery of Products of Conception, External Approach (ICD-10-PCS; principal; 2018-06-16)
DX: O99.02 Anemia complicating childbirth (principal); Z37.0 Single live birth; D64.9 Anemia, unspecified; Z3A.38 38 weeks gestation of pregnancy
CPT/HCPCS: 36415; 81003; 85025; 86592; 86901; 87340; 99218; J0595; J2210; J2550; J2590; J3010

== ENCOUNTER 2018-08-17 14:34 | Emergency (ER) | payer OTHER ==
[2018-08-17] MEDS ORDERED: IBUPROFEN 400 MG TAB ONE (15:56)
--- NOTE | 2018-08-17 16:53 | ER ---
Nurse's Notes [facility] Name: Roselyn Mason Age: 23 yrs Sex: Female : 1995 Arrival Date: 08/17/2018 Time: 14:40 Bed 30 Private MD: Diagnosis: Acute pharyngitis Presentation: 08/17 14:46 Presenting complaint: Patient states: Sore throat, fever, body aches for 2 days. White aj patches noted on bilateral tonsils. Transition of care: patient was not received from another setting of care. Onset of symptoms was August 15, 2018. Risk Assessment: Do you want to hurt yourself or someone else? Patient reports no desire to harm self or others. Initial Sepsis Screen: Does the patient meet any 2 criteria? No. Patient's initial sepsis screen is negative. Does the patient have a suspected source of infection? No. Patient's initial sepsis screen is negative. Care prior to arrival: None. 14:46 Method Of Arrival: Ambulatory 14:46 Acuity: TABITHA 3 aj Triage Assessment: 14:47 General: Appears in no apparent distress. comfortable, Behavior is calm, cooperative, aj appropriate for age. Pain: Denies pain. EENT: Reports pain when swallowing. Neuro: Level of Consciousness is awake, alert, obeys commands, Oriented to person, place, time, situation, Appropriate for age. Respiratory: Airway is patent Respiratory effort is even, unlabored, Respiratory pattern is regular, symmetrical. Derm: Skin is intact, is healthy with good turgor, Skin is pink, warm \T\ dry. normal. 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 - Social history:: Smoking status: Patient/guardian denies using tobacco. - Ebola Screening: : Patient negative for fever greater than or equal to 101.5 degrees Fahrenheit, and additional compatible Ebola Virus Disease symptoms Patient denies exposure to infectious person Patient denies travel to an Ebola-affected area in the 21 days before illness onset No symptoms or risks identified at this time. Screenin:27 Abuse screen: Denies threats or abuse. Denies injuries from another. Nutritional mg2 screening: No deficits noted. Tuberculosis screening: No symptoms or risk factors identified. Fall Risk None identified. Assessment: 15:28 General: Appears in no apparent distress. comfortable, Behavior is calm, cooperative. mg2 Pain: Complains of pain in throat Pain does not radiate. Neuro: Level of Consciousness is awake, alert, obeys commands, Oriented to person, place, time, situation. Cardiovascular: Capillary refill < 3 seconds Patient's skin is warm and dry. Respiratory: Airway is patent Respiratory effort is even, unlabored, Respiratory pattern is regular, symmetrical, Breath sounds are clear bilaterally. in mediastinum, right upper lobe, left upper lobe, right middle lobe, left lower lobe and right lower lobe. GI: Reports vomiting, since today. : No signs and/or symptoms were reported regarding the genitourinary system. EENT: Throat is reddened Reports sore throat. Derm: Skin is intact, is healthy with good turgor, Skin is pink, warm \T\ dry. normal. Musculoskeletal: Circulation, motion, and sensation intact. Capillary refill < 3 seconds. 17:02 Reassessment: Patient denies pain at this time. Patient states feeling better. mg2 Vital Signs: 14:47 BP 132 / 75; Pulse 109; Resp 20; Temp 98.7(O); Pulse Ox 99% on R/A; Weight 72.57 kg; aj Height 5 ft. 1 in. (154.94 cm); 15:28 BP 124 / 84; Pulse 97; Resp 18; Temp 98.5; Pulse Ox 100% on R/A; Pain 3/10; mg2 17:02 BP 118 / 78; Pulse 90; Resp 18; Temp 98; Pulse Ox 100% on R/A; Pain 0/10; mg2 14:47 Body Mass Index 30.23 (72.57 kg, 154.94 cm) ED Course: 14:40 Patient arrived in ED. mr 14:47 Triage completed. aj 14:47 Arm band placed on right wrist. Patient placed in an exam room. aj 14:50 Bill Massey PA is PHCP. [facility] 14:50 Eduardo Sprague MD is Attending Physician. [facility] 15:09 Harvey Russell, RN is Primary Nurse. mg2 15:28 No provider procedures requiring assistance completed. Patient did not have IV access mg2 during this emergency room visit. 15:29 Patient has correct armband on for positive identification. mg2 Administered Medications: 16:05 Drug: Motrin 800 mg Route: PO; mg2 16:54 Follow up: Response: No adverse reaction; Marked relief of symptoms mg2 Outcome: 16:52 Discharge ordered by MD. collins 17:02 Discharged to home ambulatory. mg2 17:02 Condition: stable 17:02 Discharge instructions given to patient, Instructed on discharge instructions, follow up and referral plans. medication usage, Demonstrated understanding of instructions, follow-up care, medications, Prescriptions given X 2. 17:03 Patient left the ED. mg2 Signatures: Danielle Villafana, RN Bill Motta PA PA jmm Rivera, Mary mr Gardose, Michele, RN RN mg2
--- NOTE | 2018-08-17 16:53 | EDPHYS ---
Physician Documentation [facility] Name: Roselyn Mason Age: 23 yrs Sex: Female : 1995 Arrival Date: 08/17/2018 Time: 14:40 Bed 30 Private MD: ED Physician Eduardo Sprague HPI: 08/17 15:15 This 23 yrs old Female presents to ER via Ambulatory with complaints of Sore jmm Throat, Fever. 15:15 The patient presents with sore throat. Onset: The symptoms/episode began/occurred jmm gradually, 2 day(s) ago. Associated signs and symptoms: Pertinent positives: fever, Pertinent negatives cough. This is a 23 year old female with a history of anemia that presents to the ED with complaints of sore throat, fever and body aches beginning approx 2 days ago. . 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 - Social history:: Smoking status: Patient/guardian denies using tobacco. - Ebola Screening: : Patient negative for fever greater than or equal to 101.5 degrees Fahrenheit, and additional compatible Ebola Virus Disease symptoms Patient denies exposure to infectious person Patient denies travel to an Ebola-affected area in the 21 days before illness onset No symptoms or risks identified at this time. ROS: 15:15 Cardiovascular: Negative for chest pain, palpitations, and edema, Respiratory: Negative jmm for shortness of breath, cough, wheezing, and pleuritic chest pain, Abdomen/GI: Negative for abdominal pain, nausea, vomiting, diarrhea, and constipation. 15:15 Constitutional: Positive for body aches, fever. 15:15 ENT: Positive for ear pain, sore throat. 15:15 All other systems are negative. Exam: 15:15 Constitutional: This is a well developed, well nourished patient who is awake, alert, jmm and in no acute distress. Head/Face: atraumatic. Eyes: EOMI, no conjunctival erythema appreciated 15:15 Chest/axilla: Normal chest wall appearance and motion. 15:15 ENT: TM's: are normal, Posterior pharynx: erythema, that is mild. 15:15 Neck: C-spine: ROM/movement: is normal. 15:15 Cardiovascular: Rate: normal, Rhythm: regular. 15:15 Respiratory: the patient does not display signs of respiratory distress, Respirations: normal, Breath sounds: are clear throughout. 15:15 Abdomen/GI: Inspection: abdomen appears normal, Bowel sounds: normal, Palpation: abdomen is soft and non-tender, in all quadrants. 15:15 Back: ROM is normal. 15:15 Musculoskeletal/extremity: ROM: intact in all extremities. 15:15 Skin: Appearance: Color: normal in color. 15:15 Neuro: Orientation: is normal, Mentation: is normal, Memory: is normal. 15:15 Psych: Behavior/mood is pleasant, cooperative. Vital Signs: 14:47 BP 132 / 75; Pulse 109; Resp 20; Temp 98.7(O); Pulse Ox 99% on R/A; Weight 72.57 kg; aj Height 5 ft. 1 in. (154.94 cm); 15:28 BP 124 / 84; Pulse 97; Resp 18; Temp 98.5; Pulse Ox 100% on R/A; Pain 3/10; mg2 17:02 BP 118 / 78; Pulse 90; Resp 18; Temp 98; Pulse Ox 100% on R/A; Pain 0/10; mg2 14:47 Body Mass Index 30.23 (72.57 kg, 154.94 cm) aj MDM: 15:15 Patient medically screened. [facility] 16:51 Data reviewed: vital signs, nurses notes. Counseling: I had a detailed discussion with karina the patient and/or guardian regarding: the historical points, exam findings, and any diagnostic results supporting the discharge/admit diagnosis, lab results, the need for outpatient follow up, to return to the emergency department if symptoms worsen or persist or if there are any questions or concerns that arise at home. ED course: Pain relieved in the ED. Patient advised to follow up with pcp and otherwise given strict return precautions. Patient understood and agrees with the plan of care. . 08/17 14:46 Order name: Strep; Complete Time: 15:36 08/17 14:46 Order name: Flu; Complete Time: 15:36 08/17 15:27 Order name: Throat Culture EDMS Administered Medications: 16:05 Drug: Motrin 800 mg Route: PO; mg2 16:54 Follow up: Response: No adverse reaction; Marked relief of symptoms mg2 Disposition: 08/18 06:56 Co-signature as Attending Physician, Eduardo Sprague MD I agree with the assessment and kdr plan of care. Disposition: 08/17/18 16:52 Discharged to Home. Impression: Acute pharyngitis. - Condition is Stable. - Discharge Instructions: Pharyngitis. - Prescriptions for Ibuprofen 800 mg Oral Tablet - take 1 tablet by ORAL route every 8 hours As needed take with food; 30 tablet. Zofran ODT 4 mg Oral tablet,disintegrating - place 1 tablet by TRANSLINGUAL route every 4-6 hours; 20 tablet. - Medication Reconciliation Form, Thank You Letter, Antibiotic Education, Prescription Opioid Use form. - Follow up: Private Physician; When: 2 - 3 days; Reason: Recheck today's complaints, Continuance of care, Re-evaluation by your physician. Signatures: Dispatcher [employer] EDCA Danielle Villafana, GENE RN Eduardo Romero MD MD [facility] Bill Massey PA PA [facility] Harvey Russell RN RN mg2 Corrections: (The following items were deleted from the chart) 08/17 17:03 16:52 08/17/2018 16:52 Discharged to Home. Impression: Acute pharyngitis. Condition is mg2 Stable. Forms are Medication Reconciliation Form, Thank You Letter, Antibiotic Education, Prescription Opioid Use. Follow up: Private Physician; When: 2 - 3 days; Reason: Recheck today's complaints, Continuance of care, Re-evaluation by your physician. karnia
[2018-08-17 17:11] VITALS: O2SAT 100
[2018-08-17 17:12] VITALS: BP 118/78; TEMP 98
== END 2018-08-17 17:03 | disposition home or self-care (01) ==
LOC: ER 14:34
DX: J02.9 Acute pharyngitis, unspecified (principal)
CPT/HCPCS: 87070; 87081; 87804; 99283

== ENCOUNTER 2020-08-16 16:06 | Emergency (ER) | payer OTHER ==
[2020-08-16 16:49] LABS: Absolute Lymphocytes (CBC) 2.6 K/uL (0.7-4.9); Basophils % 0.6 % (0-1.3); Hematocrit 43.6 % (36.0-45.0); Lymphocytes % 15.4 % (15.3-44.8); RBC Red Blood Cell Count 4.99 M/uL (3.86-4.86)
[2020-08-16 16:59] LABS: Albumin 4.7 g/dL (3.4-5.0); Bilirubin Direct 0.2 mg/dL (0-0.2); Bilirubin Total 0.8 mg/dL (0.2-1.0); Potassium 3.5 mmol/L (3.5-5.1); Protein, Total 9.2 g/dL (6.4-8.2)
[2020-08-16] MEDS ORDERED: PROMETHAZINE INJ 25 MG/ML AMP ONE ×2 (17:00→17:14)
[2020-08-16] MEDS ORDERED: Ringers Lactate 0 ML IV ONE (17:00)
[2020-08-16] MEDS ORDERED: Ringers Lactate 1,000 ML IV ONE ×2 (17:14→18:47)
[2020-08-16] MEDS ORDERED: PANTOPRAZOLE 40 MG INJ ONE (17:19)
[2020-08-16] MEDS ORDERED: DIPHENHYDRAMINE 50 MG/ML VIAL ONE (17:19)
[2020-08-16] MEDS ORDERED: METOCLOPRAMIDE 10 MG/2mL INJ ONE (17:19)
--- NOTE | 2020-08-16 19:29 | ER ---
Nurse's Notes [facility] Name: Roselyn Mason Age: 25 yrs Sex: Female : 1995 Arrival Date: 08/16/2020 Time: 16:08 Bed 4 Private MD: Diagnosis: Dehydration;Vomiting of , unspecified Presentation: 08/16 16:16 Chief complaint: Patient states: N/V worse than usual for 3 days. Started having SOB ll1 with muscle cramping and fast breathing today. 5 weeks . N/V med her doctor gave her isn't working. Coronavirus screen: Client denies travel out of the [place] in the last 14 days. At this time, the client does not indicate any symptoms associated with coronavirus-19. Ebola Screen: Patient denies travel to an Ebola-affected area in the 21 days before illness onset. Initial Sepsis Screen: Does the patient meet any 2 criteria? HR > 90 bpm. No. Patient's initial sepsis screen is negative. Does the patient have a suspected source of infection? Yes: Acute abdominal pain. Risk Assessment: Do you want to hurt yourself or someone else? Patient reports no desire to harm self or others. Onset of symptoms was August 14, 2020. 16:16 Method Of Arrival: Wheelchair ll1 16:16 Acuity: TABITHA 3 ll1 Triage Assessment: 16:30 General: Appears distressed, uncomfortable, obese, Behavior is cooperative, appropriate bp for age, agitated, anxious, crying. Pain: Denies pain. EENT: No deficits noted. Neuro: Level of Consciousness is awake, alert, obeys commands, Oriented to Appropriate for age. Cardiovascular: No deficits noted. Respiratory: No deficits noted. GI: Reports nausea, vomiting. : Reports . Derm: No deficits noted. Musculoskeletal: No deficits noted. Historical: - Allergies: 16:19 No Known Allergies; ll1 - PMHx: 16:19 Anemia; ll1 - PSHx: 16:19 None; ll1 - Immunization history:: Flu vaccine is not up to date. - Social history:: Smoking status: Patient denies any tobacco usage or history of. Screenin:00 Abuse screen: Denies threats or abuse. Denies injuries from another. Nutritional bp screening: No deficits noted. Tuberculosis screening: No symptoms or risk factors identified. Fall Risk None identified. Assessment: 16:30 General: SEE TRIAGE NOTE. bp 18:30 Reassessment: Patient is alert, oriented x 3, equal unlabored respirations, skin bp warm/dry/pink. Patient states feeling better. Patient states symptoms have improved. GI: Abdomen is non-distended, Abd is soft X 4 quads. 19:40 General: Appears in no apparent distress. Behavior is calm, cooperative, appropriate ea for age. Pain: Denies pain. Neuro: Level of Consciousness is awake, alert, obeys commands, Oriented to person, place, time. Cardiovascular: Patient's skin is warm and dry. Respiratory: Airway is patent Respiratory effort is even, unlabored, Respiratory pattern is regular, symmetrical. Derm: Skin is pink, warm \T\ dry. 19:41 Reassessment: Discharge instructions given to patient verbalized the understanding of ea instruction. Pt left ED ambulatory accompanied by family tolerating well . Vital Signs: 16:16 BP 134 / 94; Pulse 122; Resp 28; Temp 99.4; Pulse Ox 100% ; Pain 0/10; ll1 18:30 BP 139 / 101; Pulse 96; Resp 17; Pulse Ox 100% ; bp 19:41 BP 140 / 88; Pulse 61; Resp 18; Pulse Ox 100% ; ea ED Course: 16:08 Patient arrived in ED. bp1 16:13 Tao Irwin, RN is Primary Nurse. bp 16:13 Arm band placed on Patient placed in an exam room, on a stretcher. ca1 16:19 Triage completed. ll1 16:21 Ata Fowler MD is Attending Physician. ellis 16:22 Ish Hernandez PA is PHCP. jr8 16:33 Inserted saline lock: 20 gauge in right antecubital area, using aseptic technique. ds4 Blood collected. 17:00 Patient has correct armband on for positive identification. Bed in low position. Call bp light in reach. Side rails up X2. Adult w/ patient. 19:21 Primary Nurse role handed off by Tao Irwin, RN tt3 19:28 Nazario Zavala MD is Referral Physician. jr8 19:39 No provider procedures requiring assistance completed. IV discontinued, intact, ea bleeding controlled, No redness/swelling at site. Pressure dressing applied. Administered Medications: 17:06 Not Given (Physician Discretion): Promethazine 12.5 mg IVP once jd3 17:07 Drug: Benadryl (diphenhydrAMINE) 25 mg Route: IVP; Site: right antecubital; jd3 18:17 Follow up: Response: Marked relief of symptoms bp 17:07 Drug: ProTONIX (pantoprazole) 40 mg Route: IVP; Site: right antecubital; jd3 18:17 Follow up: Response: No adverse reaction bp 17:08 Drug: Ringers - Lactated Ringers Solution 1000 ml Route: IV; Rate: bolus; Site: right jd3 antecubital; 17:08 Drug: Reglan (metoCLOPramide) 10 mg Route: IVP; Site: right antecubital; jd3 18:17 Follow up: Response: No adverse reaction bp 18:20 Drug: Ringers - Lactated Ringers Solution 1000 ml Route: IV; Rate: bolus; Site: right bp antecubital; Outcome: 19:29 Discharge ordered by MD. linda 19:39 Discharged to home ambulatory, with family. zehra 19:39 Condition: stable 19:39 Discharge instructions given to patient, Instructed on the need for admit, Demonstrated understanding of instructions, follow-up care, medications, Prescriptions given X 1. 19:42 Patient left the ED. ea Signatures: Ata Fowler MD MD cha Roszak, Josh, PA PA jr8 Ever Jones ds4 Lynn Bass RN RN ea Davies, Jonathon, RN RN jd3 Tao Irwin RN RN bp Sharon Sagastume RN RN ca1 Lewis, Lynsay, RN RN ll1 Mirna Mariee bp1 Tiera, Andrés tt3
--- NOTE | 2020-08-16 19:29 | EDPHYS ---
Physician Documentation [facility] Name: Roselyn Mason Age: 25 yrs Sex: Female : 1995 Arrival Date: 08/16/2020 Time: 16:08 Bed 4 Private MD: ED Physician Ata Fowler HPI: 08/16 19:22 This 25 yrs old Female presents to ER via Wheelchair with complaints of jr8 Nausea/Vomiting, Numbness, +PREG <5 WKS. 19:22 The patient presents to the emergency department with nausea, vomiting. Onset: The jr8 symptoms/episode began/occurred gradually, 1 week(s) ago, and became worse and became persistent. Possible causes: . The symptoms are aggravated by food . Associated signs and symptoms: The patient has no apparent associated signs or symptoms. Severity of symptoms: At their worst the symptoms were moderate in the emergency department the symptoms are unchanged. similar problems from previous pregnancies. The patient has not recently seen a physician. Historical: - Allergies: 16:19 No Known Allergies; ll1 - PMHx: 16:19 Anemia; ll1 - PSHx: 16:19 None; ll1 - Immunization history:: Flu vaccine is not up to date. - Social history:: Smoking status: Patient denies any tobacco usage or history of. ROS: 19:22 Eyes: Negative for injury, pain, redness, and discharge, ENT: Negative for injury, jr8 pain, and discharge, Neck: Negative for injury, pain, and swelling, Cardiovascular: Negative for chest pain, palpitations, and edema, Respiratory: Negative for shortness of breath, cough, wheezing, and pleuritic chest pain, Back: Negative for injury and pain, MS/Extremity: Negative for injury and deformity, Skin: Negative for injury, rash, and discoloration, Neuro: Negative for headache, weakness, numbness, tingling, and seizure. 19:22 Abdomen/GI: Positive for nausea and vomiting, Negative for abdominal pain, abdominal cramps, abdominal distension. Exam: 19:22 Eyes: Pupils equal round and reactive to light, extra-ocular motions intact. Lids and jr8 lashes normal. Conjunctiva and sclera are non-icteric and not injected. Cornea within normal limits. Periorbital areas with no swelling, redness, or edema. ENT: Nares patent. No nasal discharge, no septal abnormalities noted. Tympanic membranes are normal and external auditory canals are clear. Oropharynx with no redness, swelling, or masses, exudates, or evidence of obstruction, uvula midline. Mucous membranes moist. Neck: Trachea midline, no thyromegaly or masses palpated, and no cervical lymphadenopathy. Supple, full range of motion without nuchal rigidity, or vertebral point tenderness. No Meningismus. Cardiovascular: Tachycardic with a normal S1 and S2. No gallops, murmurs, or rubs. Normal PMI, no JVD. No pulse deficits. Respiratory: Lungs have equal breath sounds bilaterally, clear to auscultation and percussion. No rales, rhonchi or wheezes noted. Tachypneic Abdomen/GI: Soft, non-tender, with normal bowel sounds. No distension or tympany. No guarding or rebound. No evidence of tenderness throughout. Back: No spinal tenderness. No costovertebral tenderness. Full range of motion. Skin: Warm, dry with normal turgor. Normal color with no rashes, no lesions, and no evidence of cellulitis. MS/ Extremity: Pulses equal, no cyanosis. Neurovascular intact. Full, normal range of motion. Neuro: Awake and alert, GCS 15, oriented to person, place, time, and situation. Cranial nerves II-XII grossly intact. Motor strength 5/5 in all extremities. Sensory grossly intact. 19:22 Constitutional: The patient appears alert, awake, obviously ill, uncomfortable. Vital Signs: 16:16 BP 134 / 94; Pulse 122; Resp 28; Temp 99.4; Pulse Ox 100% ; Pain 0/10; ll1 18:30 BP 139 / 101; Pulse 96; Resp 17; Pulse Ox 100% ; bp 19:41 BP 140 / 88; Pulse 61; Resp 18; Pulse Ox 100% ; ea MDM: 16:21 Patient medically screened. ellis 19:22 Data reviewed: vital signs, nurses notes, lab test result(s). Data interpreted: Pulse jr8 oximetry: on room air. Counseling: I had a detailed discussion with the patient and/or guardian regarding: the historical points, exam findings, and any diagnostic results supporting the discharge/admit diagnosis, lab results, the need for outpatient follow up, an OB/Gyne specialist, to return to the emergency department if symptoms worsen or persist or if there are any questions or concerns that arise at home. Response to treatment: the patient's symptoms have resolved after treatment, patient is well hydrated. 08/16 16:22 Order name: Basic Metabolic Panel; Complete Time: 18:07 [facility] 08/16 16:22 Order name: CBC with Diff; Complete Time: 18:07 [facility] 08/16 16:22 Order name: Hepatic Function; Complete Time: 18:07 [facility] 08/16 16:22 Order name: Lipase; Complete Time: 18:07 [facility] 08/16 16:22 Order name: IV Saline Lock; Complete Time: 16:35 [facility] 08/16 16:22 Order name: Labs collected and sent; Complete Time: 16:36 [facility] Administered Medications: 17:06 Not Given (Physician Discretion): Promethazine 12.5 mg IVP once jd3 17:07 Drug: Benadryl (diphenhydrAMINE) 25 mg Route: IVP; Site: right antecubital; jd3 18:17 Follow up: Response: Marked relief of symptoms bp 17:07 Drug: ProTONIX (pantoprazole) 40 mg Route: IVP; Site: right antecubital; jd3 18:17 Follow up: Response: No adverse reaction bp 17:08 Drug: Ringers - Lactated Ringers Solution 1000 ml Route: IV; Rate: bolus; Site: right jd3 antecubital; 17:08 Drug: Reglan (metoCLOPramide) 10 mg Route: IVP; Site: right antecubital; jd3 18:17 Follow up: Response: No adverse reaction bp 18:20 Drug: Ringers - Lactated Ringers Solution 1000 ml Route: IV; Rate: bolus; Site: right bp antecubital; Disposition: 08/16/20 19:29 Discharged to Home. Impression: Dehydration, Vomiting of , unspecified. - Condition is Stable. - Discharge Instructions: Dehydration, Adult, Morning Sickness. - Prescriptions for Reglan 10 mg Oral Tablet - take 1 tablet by ORAL route every 6 hours . take 30 minutes before meals and at bedtime; 60 tablet. - Medication Reconciliation Form, Thank You Letter, Antibiotic Education, Prescription Opioid Use form. - Follow up: Nazario Zavala MD; When: 2 - 3 days; Reason: Recheck today's complaints, Continuance of care, Re-evaluation by your physician. - Problem is new. - Symptoms are resolved. Addendum: 08/18/2020 07:17 Co-signature as Attending Physician, Ata Fowler MD I agree with the assessment and c beatty plan of care. Signatures: Dispatcher [employer] Ata Saleem MD MD cha Roszak, Josh, BROOKLYNN OVERTON jr8 Lynn Bass, RN Cornel Kelley ea RN RN jTao Cook RN Moiz Srinivasan RN RN ll1 Corrections: (The following items were deleted from the chart) 08/16 16:22 16:22 IV Saline Lock ordered. 8 jr8 16:22 16:22 Labs collected and sent ordered. [facility] jr8 16:23 16:23 BASIC METABOLIC PANEL+C.LAB.BRZ ordered. EDWI EDMS 16:23 16:23 CBC+H.LAB.BRZ ordered. EDWI EDMS 16:23 16:23 HEPATIC FUNCTION+C.LAB.BRZ ordered. EDWI EDMS 16:23 16:23 LIPASE+C.LAB.BRZ ordered. EDWI EDMS 19:42 19:29 08/16/2020 19:29 Discharged to Home. Impression: Dehydration; Vomiting of ea , unspecified. Condition is Stable. Forms are Medication Reconciliation Form, Thank You Letter, Antibiotic Education, Prescription Opioid Use. Follow up: Nazario Zavala; When: 2 - 3 days; Reason: Recheck today's complaints, Continuance of care, Re-evaluation by your physician. Problem is new. Symptoms are resolved. jr8
[2020-08-16 19:50] VITALS: TEMP 99.4; O2SAT 100
[2020-08-16 19:53] VITALS: BP 140/88
== END 2020-08-16 19:42 | disposition home or self-care (01) ==
LOC: ER 16:06
DX: O21.9 Vomiting of pregnancy, unspecified (principal); O99.281 Endocrine, nutritional and metabolic diseases complicating pregnancy, first trimester; E86.0 Dehydration; Z3A.01 Less than 8 weeks gestation of pregnancy
CPT/HCPCS: 85025; 80048; 36415; 80076; 83690; 96375; 96374; 99284; J2765; J1200; C9113; J7120 ×2; J2550

== ENCOUNTER 2020-08-19 14:32 | Observation (INO) | payer OTHER ==
[2020-08-19] MEDS ORDERED: ONDANSETRON 4 MG/2 ML VIAL ONE (20:23)
[2020-08-19] MEDS ORDERED: FAMOTIDINE 20 MG/2 ML VIAL IV ONE (20:23)
[2020-08-19] MEDS ORDERED: Ringers Lactate 1,000 ML IV ONE ×2 (20:23→22:13)
[2020-08-19 20:35] LABS: Urine Blood Trace-lysed (Negative); Urine Glucose Negative (Negative); Urine Protein 2+ (Negative); Urine Specific Gravity 1.025 (1.005-1.030); Urine pH 6.5 (5.0-7.0)
[2020-08-19 20:41] LABS: Basophils % 0.4 % (0-1.3); Hematocrit 40.2 % (36.0-45.0); Lymphocytes % 16.5 % (15.3-44.8); RBC Red Blood Cell Count 4.66 M/uL (3.86-4.86)
[2020-08-19 21:13] LABS: BUN Blood Urea Nitrogen 15 mg/dL (7-18); Bicarbonate 20 mmol/L (21-32); Glucose Level 82 mg/dL (74-106); HCG, Quantitative 43594 mIU/mL (1-3); Lipase 63 U/L (73-393); Sodium Level 137 mmol/L (136-145)
[2020-08-19 21:17] LABS: Potassium 2.9 mmol/L (3.5-5.1)
--- NOTE | 2020-08-19 21:21 | RAD REPORT ---
EXAM DESCRIPTION: US - Transvaginal OB - 08/19/2020 8:49 pm CLINICAL HISTORY: lower abdomen pain COMPARISON: No comparisons FINDINGS: Normal shaped intrauterine gestational sac is identified in the fundal portion of the endo metrial cavity. Yolk sac is identified. pole is seen with cardiac activity measuring 110 BPM. C rown-rump length corresponds to 6 week 1 day age. A minimal subchorionic hemorrhages present not clin ically significant at that small size. No suspicious or significant myometrial mass. Both ovaries are seen with normal stromal blood flow pattern. No adnexal abnormality. IMPRESSION: Single 6 week 1 day IUP. Calculated ADAN is 04/13/2021. Gestational sac has normal configuration. Minimal subchorionic hemorrhage seen not considered signifi cant.
[2020-08-19 21:58] LABS: Urine Specific Gravity/Preg 1.025 (1.005-1.030)
[2020-08-19] MEDS ORDERED: KCL 20 MEQ/100 mL IVPB 20 MEQ/100 ML BAG IV ONE (22:05)
[2020-08-19] MEDS ORDERED: POTASSIUM 25 MEQ EFFERV TAB ONE (22:13)
[2020-08-19] MEDS ORDERED: PROMETHAZINE INJ 25 MG/ML AMP ONE (22:31)
--- NOTE | 2020-08-19 23:59 | EDPHYS ---
Physician Documentation [facility] Name: Roselyn Mason Age: 25 yrs Sex: Female : 1995 Arrival Date: 08/19/2020 Time: 14:37 Bed 19 Private MD: ED Physician Prabhjot Fowler HPI: 08/19 20:00 This 25 yrs old Female presents to ER via Ambulatory with complaints of 5 Wks cp Decreased Appetite. 20:00 The patient presents to the emergency department with abdominal pain, of the right cp lower quadrant and left lower quadrant. The estimated gestational age is 5 weeks. course: care: private OB physician, Dr. Zavala, Leakage of Fluid: none appreciated, Ultrasound: the patient has not had an ultrasound. Associated signs and symptoms: Pertinent positives: nausea, vomiting, decreased appetite, Pertinent negatives: fever, vaginal bleeding. 20:00 Patient reports inability to eat due to nausea and vomiting for past 6 days. 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 - Social history:: Smoking status: Patient/guardian denies using tobacco, Stopped _ months ago 1. ROS: 20:05 Constitutional: Positive for poor PO intake, Negative for body aches, chills, fever. cp 20:05 Eyes: Negative for injury, pain, redness, and discharge. cp 20:05 Cardiovascular: Negative for chest pain. 20:05 Respiratory: Negative for cough, shortness of breath, wheezing. 20:05 Abdomen/GI: Positive for abdominal pain, nausea and vomiting, Negative for diarrhea, constipation, hematemesis. 20:05 Back: Negative for radiated pain. 20:05 : Negative for urinary symptoms, vaginal bleeding, vaginal discharge. 20:05 Neuro: Negative for altered mental status, headache, weakness. 20:05 All other systems are negative. Exam: 20:10 Constitutional: The patient appears in no acute distress, alert, awake, non-toxic, well cp developed, well nourished. 20:10 Head/Face: Normocephalic, atraumatic. cp 20:10 Eyes: Periorbital structures: appear normal, Conjunctiva: normal, no exudate, no injection, Sclera: no appreciated abnormality, Lids and lashes: appear normal, bilaterally. 20:10 ENT: External ear(s): are unremarkable, Nose: is normal, Mouth: Lips: moist, Oral mucosa: pink and intact, moist, Posterior pharynx: Airway: no evidence of obstruction, patent. 20:10 Chest/axilla: Inspection: normal, Palpation: is normal, no crepitus, no tenderness. 20:10 Cardiovascular: Rate: tachycardic, Rhythm: regular. 20:10 Respiratory: the patient does not display signs of respiratory distress, Respirations: normal, no use of accessory muscles, no retractions, labored breathing, is not present, Breath sounds: are clear throughout, no decreased breath sounds, no stridor, no wheezing. 20:10 Abdomen/GI: Inspection: abdomen appears normal, Bowel sounds: active, all quadrants, Palpation: soft, in all quadrants, mild abdominal tenderness, in the right lower quadrant and left lower quadrant, rebound tenderness, is not appreciated, voluntary guarding, is not appreciated, involuntary guarding, is not appreciated. 20:10 Back: CVA tenderness, is absent. 20:10 Neuro: Orientation: to person, place \T\ time. Mentation: is normal. Vital Signs: 14:47 BP 137 / 103; Pulse 101; Resp 19; Temp 97.5; Pulse Ox 100% ; Weight 76.2 kg; Pain 8/10; jl7 20:10 BP 131 / 95; Pulse 110; Resp 18; Pulse Ox 100% on R/A; vg1 MDM: 19:49 Patient medically screened. cp 20:30 Differential diagnosis: dehydration, hyperemesis , UTI. cp 23:45 Response to treatment: the patient's symptoms have mildly improved after treatment, cp patient continues to vomit with po fluids. 23:45 Data reviewed: vital signs, nurses notes, lab test result(s), radiologic studies, cp ultrasound. 23:55 Physician consultation: Nazario Zavala MD was called at 23:45, was contacted at 23:45, cp regarding admission, to labor and delivery, patient's condition. 08/19 19:54 Order name: Quantitative Hcg cp 08/19 19:54 Order name: Abo/rh Typing 08/19 19:54 Order name: Basic Metabolic Panel; Complete Time: 21:36 cp 08/19 21:36 Interpretation: Normal except: K 2.9; CO2 20. cp 08/19 19:54 Order name: CBC with Diff; Complete Time: 21:36 cp 08/19 22:33 Interpretation: Normal except: WBC 12.20; RUSH% 76.3; NEUT A 9.3. cp 08/19 19:54 Order name: Lipase; Complete Time: 21:36 cp 08/19 19:56 Order name: HCG, Quantitative; Complete Time: 21:36 EDMS 08/19 19:56 Order name: ABO/RH typing; Complete Time: 21:36 EDMS 08/19 20:36 Order name: Urine Dipstick-Ancillary; Complete Time: 21:36 EDMS 08/19 20:37 Order name: Urine --Ancillary (enter results); Complete Time: 22:33 2 08/20 01:09 Order name: CORONAVIRUS EDKY 08/20 01:19 Order name: Basic Metabolic Panel EDMS 08/20 01:19 Order name: Basic Metabolic Panel EDMS 08/20 01:19 Order name: CBC with Automated Diff EDKY 08/19 19:54 Order name: Urine Test (obtain specimen); Complete Time: 20:42 cp 08/19 19:56 Order name: US Transvaginal Ob; Complete Time: 21:36 cp 08/20 01:19 Order name: Lipase EDMS 08/20 01:19 Order name: Lipase EDMS 08/20 01:19 Order name: Liver (Hepatic) Function EDMS 08/20 01:19 Order name: Liver (Hepatic) Function EDMS 08/20 01:56 Order name: SARS-COV-2 RT PCR EDKY 08/19 19:54 Order name: IV Saline Lock; Complete Time: 20:28 cp 08/19 19:54 Order name: Labs collected and sent; Complete Time: 20:28 cp 08/19 19:54 Order name: NPO; Complete Time: 20:01 cp 08/19 19:54 Order name: Urine Dipstick-Ancillary (obtain specimen); Complete Time: 20:42 cp 08/19 21:48 Order name: PO challenge; Complete Time: 01:59 cp Administered Medications: 19:55 CANCELLED (Physician Discretion): NS 0.9% 1000 ml IV at 1 bolus Per protocol; 1000 mL cp bolus 20:17 Drug: Lactated Ringers Solution 1000 ml Route: IV; Rate: 1000 ml/hr; Site: right 1 antecubital; 08/20 00:00 Follow up: Response: No adverse reaction; IV Status: Completed infusion; IV Intake: ea 1000ml 08/19 20:18 Drug: Ondansetron 4 mg Route: PO; [facility] 08/20 00:06 Follow up: Response: No adverse reaction 08/19 20:20 Drug: Pepcid (famotidine) 20 mg Route: IVP; Site: right antecubital; [facility] 08/20 00:05 Follow up: Response: No adverse reaction 08/19 22:00 Drug: Potassium Chloride 20 mEq Route: IV; Rate: calculated rate; Site: right ea antecubital; 08/20 00:35 Follow up: Response: No adverse reaction; IV Status: Completed infusion 08/19 22:00 Drug: Lactated Ringers Solution 1000 ml Route: IV; Rate: 200 ml/hr; Site: right ea antecubital; 08/20 00:35 Follow up: Response: No adverse reaction; IV Status: Completed infusion 08/19 22:26 Drug: Promethazine 12.5 mg Route: IVP; Site: right antecubital; 08/20 00:00 Follow up: Response: No adverse reaction 08/19 23:55 Drug: Potassium Effervescent Tablet 50 mEq Route: PO; 08/20 00:00 Follow up: Response: No adverse reaction 00:15 Drug: Zofran (Ondansetron) 4 mg Route: IVP; Site: right antecubital; 01:57 Follow up: Response: No adverse reaction Disposition: 05:54 Co-signature as Attending Physician, Prabhjot Fowler MD. rn Disposition: 08/19/20 23:59 Hospitalization ordered by Nazario Zavala for Observation. Preliminary diagnosis is Hyperemesis gravidarum with metabolic disturbance. - [facility]. - Status is Observation. ea - Condition is Stable. - Problem is new. - Symptoms have improved. Signatures: Dispatcher [employer] EDKY Prabhjot Fowler MD MD rn Page, Corey, PA PA cp Garcia, Cindy, RN RN Misael Garcia, GENE RN jl7 Lynn Bass, RN Gypsy Blackburn ea, RN RN vg1 Corrections: (The following items were deleted from the chart) 08/19 19:55 19:54 NS 0.9% 1000 ml IV at 1 bolus Per protocol; 1000 mL bolus ordered. [facility] 08/20 00:22 00:15 CORONAVIRUS+MR.LAB.BRZ ordered. EDKY EDMS 02:08/19 23:59 Hospitalization Ordered by Nazario Zavala MD for Observation. Preliminary cg diagnosis is Hyperemesis gravidarum with metabolic disturbance. Bed requested for [facility]. Status is Observation. Condition is Stable. Problem is new. Symptoms have improved. 08/20 02:59 02:02 08/19/2020 23:59 Hospitalization Ordered by Nazario Zavala MD for Observation. Preliminary diagnosis is Hyperemesis gravidarum with metabolic disturbance. Bed requested for [facility]. Status is Observation. Condition is Stable. Problem is new. Symptoms have improved. cg
--- NOTE | 2020-08-19 23:59 | ER ---
Nurse's Notes [facility] Name: Roselyn Mason Age: 25 yrs Sex: Female : 1995 Arrival Date: 08/19/2020 Time: 14:37 Bed 19 Private MD: Diagnosis: Hyperemesis gravidarum with metabolic disturbance Presentation: 08/19 14:47 Chief complaint: Patient states: "This is day 6 of not eating or drinking anything." jl7 reports N/V, Discharged from here on Tuesday for the same thing, reports intermittent lower abdominal pain, denies vaginal bleeding. Coronavirus screen: Client denies travel out of the [place] in the last 14 days. At this time, the client does not indicate any symptoms associated with coronavirus-19. Ebola Screen: No symptoms or risks identified at this time. Initial Sepsis Screen: Does the patient meet any 2 criteria? No. Patient's initial sepsis screen is negative. Does the patient have a suspected source of infection? No. Patient's initial sepsis screen is negative. Risk Assessment: Do you want to hurt yourself or someone else? Patient reports no desire to harm self or others. Onset of symptoms was August 12, 2020. Care prior to arrival: None. 14:47 Method Of Arrival: Ambulatory [facility] 14:47 Acuity: TABITHA 3 [facility] DIRECTOR OF CREATIVE SERVICES: 14:51 LMP 07/09/2020 [facility] 14:51 6, Full Term 3, 2, Living 3 [facility] 20:00 4, Living 3, Verified cp Historical: - Allergies: 14:51 No Known Allergies; [facility] - Home Meds: 14:51 None [Active]; 7 - PMHx: 14:51 Anemia; [facility] - PSHx: 14:51 None; jl7 - Immunization history:: Adult Immunizations unknown. - Social history:: Smoking status: Patient/guardian denies using tobacco, Stopped _ months ago 1. Screenin:31 Abuse screen: Denies threats or abuse. Nutritional screening: No deficits noted. vg1 Tuberculosis screening: No symptoms or risk factors identified. Fall Risk No fall in past 12 months (0 pts). No secondary diagnosis (0 pts). IV access (20 points). Ambulatory Aid- None/Bed Rest/Nurse Assist (0 pts). Gait- Normal/Bed Rest/Wheelchair (0 pts) Mental Status- Oriented to own ability (0 pts). Total Fuentes Fall Scale indicates No Risk (0-24 pts). Assessment: 20:06 General: Appears in no apparent distress. uncomfortable, Behavior is calm, cooperative. vg1 Pain: Complains of pain in right lower quadrant and left lower quadrant Pain currently is 8 out of 10 on a pain scale. Neuro: Level of Consciousness is awake, alert, obeys commands, Oriented to person, place, time, situation. Cardiovascular: Patient's skin is warm and dry. Respiratory: Airway is patent Respiratory effort is even, unlabored. GI: Reports intolerance of fluids, intolerance of food, nausea, vomiting. : Urine is rhoda. Derm: Skin is intact, is healthy with good turgor. Musculoskeletal: Circulation, motion, and sensation intact. 0602 01:56 Reassessment: Patient and/or family updated on plan of care and expected duration. Pain ea level reassessed. Patient is alert, oriented x 3, equal unlabored respirations, skin warm/dry/pink. Awaiting on covid results. 02:32 Reassessment: Report called to L\\T\\D receiving nurse. ea Vital Signs: 08/19 14:47 BP 137 / 103; Pulse 101; Resp 19; Temp 97.5; Pulse Ox 100% ; Weight 76.2 kg; Pain 8/10; jl7 20:10 BP 131 / 95; Pulse 110; Resp 18; Pulse Ox 100% on R/A; vg1 ED Course: 14:37 Patient arrived in ED. ds1 14:51 Triage completed. jl7 14:51 Arm band placed on right wrist. Patient placed in waiting room, Patient notified of jl7 wait time. 19:48 Ata Clark PA is PHCP. cp 19:48 Prabhjot Fowler MD is Attending Physician. cp 20:00 Gypsy Burden, GENE is Primary Nurse. vg1 20:16 Initial lab(s) drawn, by me, sent to lab. Inserted saline lock: 20 gauge in right vg1 antecubital area, using aseptic technique. Blood collected. 20:31 Patient taken to ultrasound. via wheelchair. vg1 20:31 Patient has correct armband on for positive identification. Bed in low position. Side vg1 rails up X2. 20:49 US Transvaginal Ob In Process Unspecified. EDMS 23:58 Nazario Zavala MD is Hospitalizing Provider. 08/20 01:57 No provider procedures requiring assistance completed. Patient admitted, IV remains in ea place. Administered Medications: 08/19 19:55 CANCELLED (Physician Discretion): NS 0.9% 1000 ml IV at 1 bolus Per protocol; 1000 mL cp bolus 20:17 Drug: Lactated Ringers Solution 1000 ml Route: IV; Rate: 1000 ml/hr; Site: right 1 antecubital; 08/20 00:00 Follow up: Response: No adverse reaction; IV Status: Completed infusion; IV Intake: ea 1000ml 08/19 20:18 Drug: Ondansetron 4 mg Route: PO; [facility] 08/20 00:06 Follow up: Response: No adverse reaction 08/19 20:20 Drug: Pepcid (famotidine) 20 mg Route: IVP; Site: right antecubital; [facility] 08/20 00:05 Follow up: Response: No adverse reaction 08/19 22:00 Drug: Potassium Chloride 20 mEq Route: IV; Rate: calculated rate; Site: right ea antecubital; 08/20 00:35 Follow up: Response: No adverse reaction; IV Status: Completed infusion 08/19 22:00 Drug: Lactated Ringers Solution 1000 ml Route: IV; Rate: 200 ml/hr; Site: right ea antecubital; 08/20 00:35 Follow up: Response: No adverse reaction; IV Status: Completed infusion 08/19 22:26 Drug: Promethazine 12.5 mg Route: IVP; Site: right antecubital; ea 08/20 00:00 Follow up: Response: No adverse reaction 08/19 23:55 Drug: Potassium Effervescent Tablet 50 mEq Route: PO; ea 08/20 00:00 Follow up: Response: No adverse reaction 00:15 Drug: Zofran (Ondansetron) 4 mg Route: IVP; Site: right antecubital; ea 01:57 Follow up: Response: No adverse reaction ea Intake: 00:00 IV: 1000ml; Total: 1000ml. ea Outcome: 08/19 23:59 Decision to Hospitalize by Provider. 08/20 01:57 Condition: stable ea Instructed on the need for admit, Demonstrated understanding of instructions. 02:32 Admitted to L \\T\\ D, accompanied by tech, via wheelchair, room 270, with chart, Report ea called to Receiving nurse 02:59 Patient left the ED. ea Signatures: Dispatcher [employer] EDMichelle Steward dsAta Carmona PA PA cp Leal, Jahala, RN RN jl7 Lynn Bass, RN RN Gypsy Sweeney RN RN vg1
[2020-08-20] MEDS ORDERED: ONDANSETRON 4 MG/2 ML VIAL ONE (00:30)
[2020-08-20] MEDS ORDERED: ONDANSETRON 4 MG/2 ML VIAL IV PRN (01:14)
[2020-08-20] MEDS ORDERED: PROMETHAZINE INJ 25 MG/ML AMP IV PRN (01:16)
[2020-08-20] MEDS ORDERED: D5LR 1,000 ML IV SCH (02:00)
[2020-08-20] MEDS ORDERED: PROMETHAZINE INJ 25 MG/ML AMP IM PRN (03:12)
[2020-08-20 03:18] VITALS: O2SAT 100
[2020-08-20] MEDS: Ringers Lactate 1,000 ML IV SCH ×2 (03:20→10:52)
[2020-08-20 04:23] VITALS: BMI 30.4
[2020-08-20 06:49] LABS: BUN Blood Urea Nitrogen 10 mg/dL (7-18); Bicarbonate 26 mmol/L (21-32); Glucose Level 74 mg/dL (74-106); Potassium 3.7 mmol/L (3.5-5.1); Sodium Level 142 mmol/L (136-145)
[2020-08-20] MEDS: PROMETHAZINE 25 MG TABLET PO SCH ×3 (07:54→16:00)
--- NOTE | 2020-08-20 09:35 | PREOPHP ---
Date of Admission: 08/20/2020 History Of Present Illness: Roselyn Mason is a multiparous female at 6 weeks and 2 days with hyperemesis gravidarum, seen in the emergency room, hydrated, given Zofran on several doses to no avail. The patient has been in Labor and Delivery area and transferred up from the emergency room for the last 5-6 hours. No vomiting since then. She has had a dose of promethazine instead of the Zofran. She has a history of nausea and vomiting with the other pregnancies, but not this severe. A dmission potassium was 2.9 and is now 3.7. Initial blood pressures were elevated. They are now more in the normal range. The patient states she is feeling better. We will observe her today, let her ambulate, try some liquids and see how she does. We have discussed promethazine oral versus prometha zine rectal suppositories. We will give her oral dose first and see how that is tolerated. Family History: Basically noncontributory. Past Medical History: Noncontributory. Physical Examination: Normal in the emergency room. Heart and Lungs: No heart and lung problems. Breasts: Not examined. Abdomen: Soft. There is no tenderness. Pelvic: Not done. Assessment And Plan: The patient is better hydrated this morning. Basically, we have intrauterine p regnancy at 6 weeks 2 days, hyperemesis gravidarum. Hydration proceeding at this point. Electrolytes improving. Followup according to response to proposed therapy. KRISTEN/FAUZIA Voice ID: [id number]
[2020-08-20 12:00] VITALS: TEMP 98.1
[2020-08-20 17:27] VITALS: BP 117/75
== END 2020-08-20 17:21 | disposition home or self-care (01) ==
LOC: ER 14:32 → 2ND-WC 08-20 01:19
PROVIDERS: ADMIT Specialist; ATTEND Specialist
DX: O21.1 Hyperemesis gravidarum with metabolic disturbance (principal); Z3A.01 Less than 8 weeks gestation of pregnancy; Z20.822 Contact with and (suspected) exposure to COVID-19
CPT/HCPCS: 85025; 80048 ×2; 36415; 86900; 81025; 86901; 84702; 81003; 83690; 76817; U0003; J2550 ×2; Q0169 ×2; J3480; J7120 ×2; J2405 ×2; 96361; 96365; 96366; 96375; 99285

== ENCOUNTER 2020-08-20 19:07 | Emergency (ER) | payer OTHER ==
[2020-08-20] MEDS ORDERED: DIPHENHYDRAMINE 50 MG/ML VIAL ONE (19:50)
[2020-08-20 20:09] LABS: BUN Blood Urea Nitrogen 6 mg/dL (7-18); Bicarbonate 19 mmol/L (21-32); Glucose Level 75 mg/dL (74-106); Magnesium 1.8 mg/dL (1.8-2.4); Potassium 3.2 mmol/L (3.5-5.1); Sodium Level 139 mmol/L (136-145)
[2020-08-20] MEDS ORDERED: NA CHLORIDE 0.9% 500 ML ONE (21:00)
[2020-08-20] MEDS ORDERED: Magnesium Sulfate 2gm IVPB 2 G/50 ML BAG IV ONE (21:00)
[2020-08-20] MEDS ORDERED: KCL 20 MEQ/100 mL IVPB 20 MEQ/100 ML BAG IV ONE (21:01)
--- NOTE | 2020-08-20 21:01 | EDPHYS ---
Physician Documentation [facility] Name: Roselyn Mason Age: 25 yrs Sex: Female : 1995 Arrival Date: 08/20/2020 Time: 19:08 Bed 5 Private MD: ED Physician Prabhjot Fowler HPI: 08/20 19:28 This 25 yrs old Female presents to ER via EMS with complaints of Anxiety. rn 19:28 Reports just discharged from L\T\D for hyperemesis, on way home began to hyperventilate, rn experienced facial twitching, and cramping of hands and feet. States told L\T\D staff that face was twitching upon discharge but told was normal. + hx of anxiety. No vomiting or nausea currently. No abd pain. . Onset: The symptoms/episode began/occurred just prior to arrival. Severity of symptoms: At their worst the symptoms were moderate in the emergency department the symptoms have improved. The patient has experienced a previous episode. The patient has been recently been admitted at [facility]. ENT CONSULTANT: 19:19 6, Full Term 3, 3 ph Historical: - Allergies: 19:18 No Known Drug Allergies; ph - PMHx: 19:18 Anemia; ph - PSHx: 19:18 None; ph - Immunization history:: Adult Immunizations unknown. - Family history:: not pertinent. - Social history:: Smoking status: unknown. - Hospitalizations: : The patient was recently seen at [facility]. ROS: 19:28 Constitutional: Negative for fever, chills, and weight loss, Eyes: Negative for injury, rn pain, redness, and discharge, Neck: Negative for injury, pain, and swelling, Cardiovascular: Negative for chest pain, and edema, Respiratory: Negative for cough, wheezing, and pleuritic chest pain, Abdomen/GI: Negative for abdominal pain, nausea, vomiting, diarrhea, and constipation, Back: Negative for injury and pain, : Negative for injury, bleeding, discharge, and swelling, MS/Extremity: Negative for injury and deformity, Skin: Negative for injury, rash, and discoloration, Neuro: Negative for headache, weakness, and seizure. Exam: 19:28 Constitutional: This is a well developed, well nourished patient who is awake, alert, rn hyperventilating, wheeled to room, + cramping to bilateral hands with contractures and facial twitching of upper lip. Head/Face: Normocephalic, atraumatic. Eyes: Periorbital areas with no swelling, redness, or edema. Cardiovascular: Regular rhythm, tachycardic. No pulse deficits. Respiratory: + hyperventilating Abdomen/GI: soft, non-tender Skin: Warm, dry with normal turgor. Normal color with no rashes, no lesions, and no evidence of cellulitis. MS/ Extremity: Pulses equal, no cyanosis. + cramping and contractions of bilateral hands/wrists Neuro: Awake and alert, GCS 15, oriented to person, place, time, and situation. Cranial nerves II-XII grossly intact. Motor strength 5/5 in all extremities. Sensory grossly intact. Vital Signs: 19:13 BP 119 / 81; Pulse 116; Resp 22; Temp 98.2; Pulse Ox 100% on R/A; Weight 73.03 kg; ph Height 5 ft. 4 in. (162.56 cm); 20:17 BP 117 / 87; Pulse 84; Resp 20; Pulse Ox 100% ; ad5 21:50 BP 125 / 90; Pulse 78; Resp 16 S; Pulse Ox 100% on R/A; ad5 19:13 Body Mass Index 27.64 (73.03 kg, 162.56 cm) ph MDM: 19:22 Patient medically screened. rn 20:59 Differential Diagnosis hyperventilation, electrolyte disorder. Data reviewed: vital rn signs, nurses notes, old medical records, lab test result(s), and as a result, I will discharge patient. Counseling: I had a detailed discussion with the patient and/or guardian regarding: the historical points, exam findings, and any diagnostic results supporting the discharge/admit diagnosis, lab results, the need for outpatient follow up, to return to the emergency department if symptoms worsen or persist or if there are any questions or concerns that arise at home. Response to treatment: the patient's symptoms have resolved after treatment, the patient's condition has returned to base line, the patient is now symptom free, and as a result, I will discharge patient. Special discussion: I discussed with the patient/guardian in detail that at this point there is no indication for admission to the hospital. It is understood, however, that if the symptoms persist or worsen the patient needs to return immediately for re-evaluation. 08/20 19:26 Order name: Basic Metabolic Panel; Complete Time: 20:25 rn 08/20 19:26 Order name: Magnesium; Complete Time: 20: rn 08/20 19:26 Order name: IV Start; Complete Time: 19:41 rn Administered Medications: 19:38 Drug: Benadryl (diphenhydrAMINE) 25 mg Route: IVP; Site: left hand; ad5 20:18 Follow up: Response: No adverse reaction ad5 20:56 Drug: Potassium Chloride 10 mEq Route: IV; Rate: calculated rate; Site: right hand; ea 21:53 Follow up: IV Status: Completed infusion ea 20:56 Drug: Magnesium Sulfate 1 grams Route: IVPB; Infused Over: 1 hrs; Site: right hand; ea 21:54 Follow up: IV Status: Completed infusion ea Disposition: 08/20/20 21:00 Discharged to Home. Impression: Hyperventilation, Hypokalemia, Hypomagnesemia. - Condition is Stable. - Discharge Instructions: Hyperventilation, Hypomagnesemia, Hypokalemia. - Medication Reconciliation Form, Thank You Letter, Antibiotic Education, Prescription Opioid Use form. - Follow up: Private Physician; When: As needed; Reason: Recheck today's complaints, Re-evaluation by your physician. - Problem is new. - Symptoms have improved. Signatures: Dispatcher [employer] EDMS Prabhjot Fowler MD MD rn Hall, Patricia, RN RN ph Antunez, Elena, RN RN ea Davidson, Andrea ad5 Corrections: (The following items were deleted from the chart) 21:54 21:00 08/20/2020 21:00 Discharged to Home. Impression: Hyperventilation; Hypokalemia; ea Hypomagnesemia. Condition is Stable. Forms are Medication Reconciliation Form, Thank You Letter, Antibiotic Education, Prescription Opioid Use. Follow up: Private Physician; When: As needed; Reason: Recheck today's complaints, Re-evaluation by your physician. Problem is new. Symptoms have improved. rn
--- NOTE | 2020-08-20 21:01 | ER ---
Nurse's Notes [facility] Name: Roselyn Mason Age: 25 yrs Sex: Female : 1995 Arrival Date: 08/20/2020 Time: 19:08 Bed 5 Private MD: Diagnosis: Hyperventilation;Hypokalemia;Hypomagnesemia Presentation: 08/20 19:13 Chief complaint: EMS states: Pt was just d/c from L\T\D, was admitted for hyperemesis ph gravidum, on the car ride home she began having SOB and pain in hands and feet and called EMS, pt noted to be hyperventilating upon arrival, hands stiff. VSS. Coronavirus screen: Client denies travel out of the [place] in the last 14 days. At this time, the client does not indicate any symptoms associated with coronavirus-19. Ebola Screen: No symptoms or risks identified at this time. Initial Sepsis Screen: Does the patient meet any 2 criteria? No. Patient's initial sepsis screen is negative. Does the patient have a suspected source of infection? No. Patient's initial sepsis screen is negative. Risk Assessment: Do you want to hurt yourself or someone else? Patient reports no desire to harm self or others. Onset of symptoms was August 20, 2020. 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 - Family history:: not pertinent. - Social history:: Smoking status: unknown. - Hospitalizations: : The patient was recently seen at [facility]. Screenin:48 Abuse screen: Denies threats or abuse. Denies injuries from another. Nutritional ad5 screening: No deficits noted. Tuberculosis screening: No symptoms or risk factors identified. Fall Risk No fall in past 12 months (0 pts). No secondary diagnosis (0 pts). IV access (20 points). Ambulatory Aid- None/Bed Rest/Nurse Assist (0 pts). Gait- Normal/Bed Rest/Wheelchair (0 pts) Mental Status- Oriented to own ability (0 pts). Total Fuentes Fall Scale indicates No Risk (0-24 pts). Assessment: 19:46 General: Appears ill, Behavior is calm, cooperative, appropriate for age. Pain: Denies ad5 pain. Neuro: Level of Consciousness is awake, alert, obeys commands, Oriented to person, place, time, situation, Appropriate for age Lubrication Servicer are equal bilaterally Moves all extremities. Speech is normal, Tingling in BUE/BLE. Cardiovascular: No deficits noted. Heart tones S1 S2 present Capillary refill < 3 seconds JVD is absent Patient's skin is warm and dry. Pulses are all present. Rhythm is regular. Respiratory: No deficits noted. Airway is patent Respiratory effort is even, unlabored, Respiratory pattern is regular, symmetrical, Breath sounds are clear bilaterally. GI: No deficits noted. No signs and/or symptoms were reported involving the gastrointestinal system. : No deficits noted. No signs and/or symptoms were reported regarding the genitourinary system. EENT: No deficits noted. Derm: No deficits noted. Skin is pink, warm \T\ dry. Musculoskeletal: No deficits noted. No signs and/or symptoms reported regarding the musculoskeletal system. 20:17 Reassessment: Patient appears in no apparent distress at this time. Patient and/or ad5 family updated on plan of care and expected duration. Pain level reassessed. Patient is alert, oriented x 3, equal unlabored respirations, skin warm/dry/pink. 21:37 Reassessment: Patient and/or family updated on plan of care and expected duration. Pain ea level reassessed. Patient is alert, oriented x 3, equal unlabored respirations, skin warm/dry/pink. Pt awaiting on medications to complete. 21:53 Reassessment: Patient and/or family updated on plan of care and expected duration. Pain ea level reassessed. Patient is alert, oriented x 3, equal unlabored respirations, skin warm/dry/pink. Discharge instruction given to patient verbalized the understanding of instruction. Pt left ED ambulatory tolerating well. Patient states feeling better. Patient states symptoms have improved. Vital Signs: 19:13 BP 119 / 81; Pulse 116; Resp 22; Temp 98.2; Pulse Ox 100% on R/A; Weight 73.03 kg; ph Height 5 ft. 4 in. (162.56 cm); 20:17 BP 117 / 87; Pulse 84; Resp 20; Pulse Ox 100% ; ad5 21:50 BP 125 / 90; Pulse 78; Resp 16 S; Pulse Ox 100% on R/A; ad5 19:13 Body Mass Index 27.64 (73.03 kg, 162.56 cm) ED Course: 19:08 Patient arrived in ED. es 19:18 Triage completed. ph 19:18 Arm band placed on. ph 19:21 Prabhjot Fowler MD is Attending Physician. rn 19:21 Ata Clark PA is PHCP. mahendra 19:28 Robin North is Primary Nurse. ad5 19:49 No provider procedures requiring assistance completed. Initial lab(s) drawn, by ga, ad5 sent to lab. Inserted saline lock: 22 gauge in left hand, using aseptic technique. 19:50 Patient has correct armband on for positive identification. Bed in low position. Call ad5 light in reach. Side rails up X2. Pulse ox on. NIBP on. Door closed. Noise minimized. Warm blanket given. 21:53 IV discontinued, intact, bleeding controlled, No redness/swelling at site. Pressure ea dressing applied. Administered Medications: 19:38 Drug: Benadryl (diphenhydrAMINE) 25 mg Route: IVP; Site: left hand; ad5 20:18 Follow up: Response: No adverse reaction ad5 20:56 Drug: Potassium Chloride 10 mEq Route: IV; Rate: calculated rate; Site: right hand; ea 21:53 Follow up: IV Status: Completed infusion ea 20:56 Drug: Magnesium Sulfate 1 grams Route: IVPB; Infused Over: 1 hrs; Site: right hand; ea 21:54 Follow up: IV Status: Completed infusion ea Outcome: 21:00 Discharge ordered by . rn 21:52 Discharged to home ambulatory, with family. ea 21:52 Condition: stable 21:52 Discharge instructions given to patient, Instructed on discharge instructions, follow up and referral plans. Demonstrated understanding of instructions, follow-up care. 21:54 Patient left the ED. ea Signatures: Brittaney Yanes Roman, MD MD rn Hall, Patricia, RN RN Ata Mcneal PA PA cp Antunez, Elena, RN RN ea Davidson, Andrea ad5 Corrections: (The following items were deleted from the chart) 19:20 19:13 Pulse 116bpm; Resp 22bpm; Pulse Ox 100% RA; Temp 98.2F; 73.03 kg; Height 5 ft. 4 ph in.; BMI: 27.6; ph
[2020-08-20 22:24] VITALS: TEMP 98.2; O2SAT 100
[2020-08-20 22:28] VITALS: BP 125/90
== END 2020-08-20 21:54 | disposition home or self-care (01) ==
LOC: ER 19:07
DX: R06.4 Hyperventilation (principal); E87.6 Hypokalemia; E83.42 Hypomagnesemia
CPT/HCPCS: 80048; 36415; 83735; J1200; J3480; J3475; J7040; 96365; 96368; 96375; 99284

== ENCOUNTER 2020-08-25 18:55 | Observation (INO) | payer OTHER ==
[2020-08-25] MEDS ORDERED: ONDANSETRON 4 MG/2 ML VIAL ONE ×2 (20:20→23:30)
[2020-08-25] MEDS ORDERED: PANTOPRAZOLE 40 MG INJ ONE (20:21)
[2020-08-25] MEDS ORDERED: NA CHLORIDE 0.9% 1,000 ML ONE ×2 (20:21→23:30)
[2020-08-25 20:47] LABS: Absolute Lymphocytes (CBC) 1.6 K/uL (0.7-4.9); Basophils % 0.3 % (0-1.3); Hematocrit 45.3 % (36.0-45.0); Lymphocytes % 10.2 % (15.3-44.8); MPV 9.8 fL (7.6-11.3); RBC Red Blood Cell Count 5.27 M/uL (3.86-4.86)
--- NOTE | 2020-08-25 20:52 | RAD REPORT ---
EXAM DESCRIPTION: US - Transvaginal OB - 08/25/2020 8:43 pm CLINICAL HISTORY: ABD CRAMPING, COMPARISON: Transvaginal OB dated 08/19/2020 FINDINGS: A single gestational sac is seen within the uterus. The shape of the sac is within normal limits for gestational age. Within the sac is a single pole with crown-rump length of 9 mm, cor relating to estimated gestational age of 7 weeks 0 days. Estimated date of delivery is 04/13/2021. Heart rate is 143 BPM.. The placenta is not yet developed due to early gestational age. Small 10 x 9 subchorionic bleed infer iorly. The maternal adnexa and right ovary are within normal limits. Normal Doppler blood flow was demonstra rebekah to the right ovary. The left ovary was obscured by bowel gas. IMPRESSION: Single live early intrauterine gestation with estimated gestational age of 7 weeks 0 day s, ADAN 04/13/2021. Small 10 x 9 mm inferior subchorionic bleed.
[2020-08-25 21:14] LABS: BUN Blood Urea Nitrogen 25 mg/dL (7-18); Glucose Level 77 mg/dL (74-106); HCG, Quantitative 93946 mIU/mL (1-3); Potassium 3.6 mmol/L (3.5-5.1); Sodium Level 134 mmol/L (136-145); Troponin (Emerg Dept Use Only) < 0.02 ng/mL (0.0-0.045)
[2020-08-25 21:15] LABS: Bicarbonate 13 mmol/L (21-32)
--- NOTE | 2020-08-25 21:21 | RAD REPORT ---
EXAM DESCRIPTION: RAD - Chest Single View - 08/25/2020 9:12 pm CLINICAL HISTORY: CHEST PAIN Chest pain. COMPARISON: No comparisons FINDINGS: Portable technique limits examination quality. The lungs are grossly clear. The heart is normal in size. No displaced fractures. IMPRESSION: No acute intrathoracic process suspected.
--- NOTE | 2020-08-25 21:25 | EDPHYS ---
Physician Documentation [facility] Name: Roselyn Mason Age: 25 yrs Sex: Female : 1995 Arrival Date: 08/25/2020 Time: 18:56 Bed 27 Private MD: Nazario Zavala B ED Physician Ata Fowler HPI: 08/25 19:46 This 25 yrs old Female presents to ER via Wheelchair with complaints of Neck ellis Pain, <24hrs Old, Nausea/Vomiting. 19:46 The patient or guardian complains of decreased range of motion, pain. ellis 19:52 The patient or guardian reports chest pain that is located primarily in the anterior ellis chest wall, bilaterally. The patient presents to the emergency department with nausea, vomiting. Onset: The symptoms/episode began/occurred 3 day(s) ago. Possible causes: unknown, . The symptoms are aggravated by nothing. The symptoms are alleviated by nothing. The patient presents to the emergency department with nausea and vomiting. The estimated gestational age is 7 weeks. 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 Flu vaccine is not up to date. - Social history:: Smoking status: Patient/guardian denies using tobacco, but has a distant history of tobacco abuse. ROS: 19:48 Constitutional: Negative for fever, chills, and weight loss, Eyes: Negative for injury, ellis pain, redness, and discharge, ENT: Negative for injury, pain, and discharge, Neck: Negative for injury, pain, and swelling, Respiratory: Negative for shortness of breath, cough, wheezing, and pleuritic chest pain, Back: Negative for injury and pain, : Negative for injury, bleeding, discharge, and swelling, MS/Extremity: Negative for injury and deformity, Skin: Negative for injury, rash, and discoloration, Neuro: Negative for headache, weakness, numbness, tingling, and seizure, Psych: Negative for depression, anxiety, suicide ideation, homicidal ideation, and hallucinations, Allergy/Immunology: Negative for hives, rash, and allergies, Endocrine: Negative for neck swelling, polydipsia, polyuria, polyphagia, and marked weight changes. 19:48 Cardiovascular: Positive for chest pain. 19:48 Abdomen/GI: Positive for nausea and vomiting. Exam: 19:48 Constitutional: This is a well developed, well nourished patient who is awake, alert, ellis and in no acute distress. Head/Face: Normocephalic, atraumatic. Eyes: Pupils equal round and reactive to light, extra-ocular motions intact. Lids and lashes normal. Conjunctiva and sclera are non-icteric and not injected. Cornea within normal limits. Periorbital areas with no swelling, redness, or edema. ENT: Nares patent. No nasal discharge, no septal abnormalities noted. Tympanic membranes are normal and external auditory canals are clear. Oropharynx with no redness, swelling, or masses, exudates, or evidence of obstruction, uvula midline. Mucous membranes moist. Neck: Trachea midline, no thyromegaly or masses palpated, and no cervical lymphadenopathy. Supple, full range of motion without nuchal rigidity, or vertebral point tenderness. No Meningismus. Chest/axilla: Normal chest wall appearance and motion. Nontender with no deformity. No lesions are appreciated. Cardiovascular: Regular rate and rhythm with a normal S1 and S2. No gallops, murmurs, or rubs. Normal PMI, no JVD. No pulse deficits. Respiratory: Lungs have equal breath sounds bilaterally, clear to auscultation and percussion. No rales, rhonchi or wheezes noted. No increased work of breathing, no retractions or nasal flaring. Back: No spinal tenderness. No costovertebral tenderness. Full range of motion. Female : Normal external genitalia. Skin: Warm, dry with normal turgor. Normal color with no rashes, no lesions, and no evidence of cellulitis. MS/ Extremity: Pulses equal, no cyanosis. Neurovascular intact. Full, normal range of motion. Neuro: Awake and alert, GCS 15, oriented to person, place, time, and situation. Cranial nerves II-XII grossly intact. Motor strength 5/5 in all extremities. Sensory grossly intact. Cerebellar exam normal. Normal gait. Psych: Awake, alert, with orientation to person, place and time. Behavior, mood, and affect are within normal limits. 19:48 Abdomen/GI: Inspection: abdomen appears normal, Bowel sounds: normal, Palpation: mild abdominal tenderness, in all quadrants, Liver: no appreciated palpable abnormalities, Hernia: not appreciated. 19:48 Musculoskeletal/extremity: DVT Exam: No signs of deep vein thrombosis. no pain, no swelling, no tenderness, negative Homans' sign noted on exam, no appreciated bluish discoloration, no erythema, no increased warmth. Vital Signs: 19:19 BP 116 / 79; Pulse 128; Resp 19 S; Temp 98.2(TE); Pulse Ox 99% ; Weight 66.22 kg (R); ca1 Height 5 ft. 1 in. (154.94 cm) (R); Pain 10/10; 20:51 BP 113 / 75; Pulse 97; Resp 20; Pulse Ox 100% ; ak2 22:33 BP 110 / 73; Pulse 92; Resp 16; Pulse Ox 100% on R/A; ak2 19:19 Body Mass Index 27.59 (66.22 kg, 154.94 cm) ca1 MDM: 19:30 Patient medically screened. ellis 19:50 Differential diagnosis: abnormal EKG, chest wall pain, cholecystitis, Cholelithiasis ellis gastritis, pancreatitis, hiatal hernia, pneumonia, unstable angina. HEART Score: History: Slightly Suspicious (0), ECG: Normal (0), Age: < or = 45 years (0), Risk Factors: No Risk Factors Known (0), Troponin: < or = 1 x Normal Limit (0). The patient's deep vein thrombosis risk score was calculated as follows: Total Score: 0. This patient was found to be at low risk for a deep vein thrombosis by using the Well's assessment criteria. The patient's pulmonary embolism risk score was calculated as follows: Total Score: 0-2 points. This patient was found to be at low risk for a pulmonary embolism by using the Well's assessment criteria. YASMIN Risk Score: not applicable. Data reviewed: vital signs, nurses notes, lab test result(s), EKG, radiologic studies, plain films, ultrasound. Data interpreted: panel monitor: rate is 128 beats/min, rhythm is regular, Pulse oximetry: on room air is 99 %. Test interpretation: by ED physician or midlevel provider: ECG, plain radiologic studies. 08/25 19:45 Order name: Quantitative Hcg; Complete Time: 21:19 [facility] 08/25 19:45 Order name: Abo/rh Typing [facility] 08/25 19:45 Order name: Basic Metabolic Panel; Complete Time: 21:19 [facility] 08/25 19:45 Order name: CBC with Diff; Complete Time: 21:14 [facility] 08/25 19:45 Order name: Troponin (emerg Dept Use Only); Complete Time: 21:19 [facility] 08/25 20:07 Order name: Lipase [facility] 08/25 19:45 Order name: Chest Single View XRAY [facility] 08/25 19:48 Order name: US Transvaginal Ob; Complete Time: 21:14 [facility] 08/25 22:05 Order name: COVID-19 : Document "Date of Symptom Onset" if Symptomatic. 2 08/25 22:18 Order name: [facility]ONAVIRUS [facility] 08/25 19:45 Order name: Urine Test (obtain specimen) [facility] 08/25 19:45 Order name: IV Saline Lock [facility] 08/25 19:45 Order name: Labs collected and sent [facility] 08/25 19:45 Order name: NPO [facility] 08/25 19:45 Order name: Urine Dipstick-Ancillary (obtain specimen) [facility] 08/25 19:45 Order name: EKG; Complete Time: 19:46 [facility] 08/25 19:45 Order name: EKG - Nurse/Tech [facility] Administered Medications: 20:02 Drug: ProTONIX (pantoprazole) 40 mg Route: IVP; Site: left antecubital; ak2 20:02 Drug: NS 0.9% 1000 ml Route: IV; Rate: 1 bolus; Site: left antecubital; ak2 20:02 Drug: Zofran (Ondansetron) 4 mg Route: IVP; Site: left antecubital; ak2 20:51 Drug: NS 0.9% 1000 ml Route: IV; Rate: 1 bolus; Site: right forearm; ak2 Disposition: 08/25/20 21:24 Hospitalization ordered by Nazario Zavala for Observation. Preliminary diagnosis are Hyperemesis gravidarum with metabolic disturbance, related conditions, unspecified, first trimester. - Bed requested for [facility]. - Status is Observation. ak2 - Condition is Stable. - Problem is new. - Symptoms have improved. Signatures: Dispatcher [employer] EDMS Gretchen Nails RN RN mw Anderson, Corey, MD MD cha Acob, Cheryl, RN RN ca1 [place], Anthony ak2 Corrections: (The following items were deleted from the chart) 22:04 21:24 Hospitalization Ordered by Nazario Zavala MD for Observation. Preliminary mw diagnosis is Hyperemesis gravidarum with metabolic disturbance; related conditions, unspecified, first trimester. Bed requested for Telemetry/MedSurg (observation). Status is Observation. Condition is Stable. Problem is new. Symptoms have improved. [facility] 23:01 22:04 08/25/2020 21:24 Hospitalization Ordered by Nazario Zavala MD for Observation. ak2 Preliminary diagnosis is Hyperemesis gravidarum with metabolic disturbance; related conditions, unspecified, first trimester. Bed requested for [facility]. Status is Observation. Condition is Stable. Problem is new. Symptoms have improved. mw
--- NOTE | 2020-08-25 21:25 | ER ---
Nurse's Notes [facility] Name: Roselyn Mason Age: 25 yrs Sex: Female : 1995 Arrival Date: 08/25/2020 Time: 18:56 Bed 27 Private MD: Nazario Zavala B Diagnosis: Hyperemesis gravidarum with metabolic disturbance; related conditions, unspecified, first trimester Presentation: 08/25 19:19 Chief complaint: Patient states: Am and I have been throwing up for 2 weeks ca1 now. My neck hurts from my chest to my back and between my shoulders. I feel like I broke my neck. Denies injury to neck. It hurts to swallow, to breathe, to cough. I have seen Dr. Zavala today and he said I have been vomiting blood. 7 weeks. I tore my esophagus in 2018 from vomiting and was sent to [facility]. Coronavirus screen: Client denies travel out of the [place] in the last 14 days. nausea, vomiting. Client presents with at least one sign or symptom that may indicate coronavirus-19. Standard/surgical mask placed on the client. Provider contacted for isolation considerations. Ebola Screen: Patient negative for fever greater than or equal to 101.5 degrees Fahrenheit, and additional compatible Ebola Virus Disease symptoms Patient denies exposure to infectious person. Patient denies travel to an Ebola-affected area in the 21 days before illness onset. No symptoms or risks identified at this time. Initial Sepsis Screen: Does the patient meet any 2 criteria? No. Patient's initial sepsis screen is negative. Does the patient have a suspected source of infection? No. Patient's initial sepsis screen is negative. Risk Assessment: Do you want to hurt yourself or someone else? Patient reports no desire to harm self or others. Onset of symptoms was August 25, 2020. 19:19 Method Of Arrival: Wheelchair ca1 19:19 Acuity: TABITHA 2 ca1 Triage Assessment: 20:20 General: Appears in no apparent distress. Behavior is calm, cooperative. Pain: ak2 Complains of pain in chest and neck. 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 Flu vaccine is not up to date. - Social history:: Smoking status: Patient/guardian denies using tobacco, but has a distant history of tobacco abuse. Screenin:29 Abuse screen: Denies threats or abuse. Denies injuries from another. Nutritional ak2 screening: No deficits noted. Tuberculosis screening: No symptoms or risk factors identified. Fall Risk None identified. Assessment: 22:40 General: report called to rn. ak2 Vital Signs: 19:19 BP 116 / 79; Pulse 128; Resp 19 S; Temp 98.2(TE); Pulse Ox 99% ; Weight 66.22 kg (R); ca1 Height 5 ft. 1 in. (154.94 cm) (R); Pain 10/10; 20:51 BP 113 / 75; Pulse 97; Resp 20; Pulse Ox 100% ; ak2 22:33 BP 110 / 73; Pulse 92; Resp 16; Pulse Ox 100% on R/A; ak2 19:19 Body Mass Index 27.59 (66.22 kg, 154.94 cm) ca1 ED Course: 18:56 Patient arrived in ED. am2 18:56 Nazario Zavala MD is Private Physician. am2 19:22 Triage completed. ca1 19:24 Arm band placed on right wrist. ca1 19:26 Doug Gonzalez is Primary Nurse. ak2 19:29 Patient has correct armband on for positive identification. ak2 19:29 No provider procedures requiring assistance completed. ak2 19:30 Ata Fowler MD is Attending Physician. ellis 20:43 US Transvaginal Ob In Process Unspecified. EDMS 21:12 Chest Single View XRAY In Process Unspecified. EDMS 21:21 Nazario Zavala MD is Hospitalizing Provider. ellis Administered Medications: 20:02 Drug: ProTONIX (pantoprazole) 40 mg Route: IVP; Site: left antecubital; ak2 20:02 Drug: NS 0.9% 1000 ml Route: IV; Rate: 1 bolus; Site: left antecubital; ak2 20:02 Drug: Zofran (Ondansetron) 4 mg Route: IVP; Site: left antecubital; ak2 20:51 Drug: NS 0.9% 1000 ml Route: IV; Rate: 1 bolus; Site: right forearm; ak2 Outcome: 21:24 Decision to Hospitalize by Provider. ellis 23:01 Patient left the ED. ak2 Signatures: Dispatcher [employer] EDMS Ata Fowler MD MD cha Moreno, Amanda am2 Acob, Cheryl, RN RN ca1 Kapol[place], Anthony ak2 Corrections: (The following items were deleted from the chart) 20:51 20:50 NS 0.9% 1000 ml IV at 1 bolus in right femoral ak2 ak2
[2020-08-25] MEDS ORDERED: ZOLPIDEM TARTRATE 5 MG TABLET PO PRN (23:04)
[2020-08-25 23:10] VITALS: O2SAT 100
[2020-08-25 23:56] VITALS: BMI 27.6
[2020-08-26] MEDS: ONDANSETRON 4 MG/2 ML VIAL IV PRN ×2 (00:02→04:02)
[2020-08-26] MEDS ORDERED: MORPHINE 2 MG/ML SYR IV PRN (05:27)
[2020-08-26] MEDS ORDERED: ACETAMINOPHEN 325 MG TABLET PO PRN (05:27)
[2020-08-26] MEDS ORDERED: D5LR 1,000 ML IV SCH (05:27)
[2020-08-26] MEDS ORDERED: ONDANSETRON 4 MG/2 ML VIAL IV PRN (05:27)
[2020-08-26] MEDS ORDERED: SODIUM CHLORIDE 0.9% 10ML INJ IV PRN (05:27)
[2020-08-26 06:20] LABS: Absolute Lymphocytes (CBC) 2.2 K/uL (0.7-4.9); Basophils % 0.5 % (0-1.3); Hematocrit 34.6 % (36.0-45.0); Lymphocytes % 19.3 % (15.3-44.8); MPV 9.8 fL (7.6-11.3); RBC Red Blood Cell Count 3.97 M/uL (3.86-4.86)
[2020-08-26 06:31] LABS: ALT/SGPT 265 U/L (12-78); AST/SGOT 118 U/L (15-37); Albumin 2.9 g/dL (3.4-5.0); Alkaline Phosphatase 92 U/L (45-117); BUN Blood Urea Nitrogen 15 mg/dL (7-18); Bicarbonate 18 mmol/L (21-32); Bilirubin Direct 1.3 mg/dL (0-0.2); Bilirubin Total 1.9 mg/dL (0.2-1.0); Glucose Level 75 mg/dL (74-106); Lipase 324 U/L (73-393); Protein, Total 6.5 g/dL (6.4-8.2); Sodium Level 140 mmol/L (136-145)
[2020-08-26] MEDS ORDERED: MORPHINE 4 MG/ML SYR IV PRN (07:23)
[2020-08-26 07:47] VITALS: BP 122/85; TEMP 97.6
[2020-08-26] MEDS ORDERED: PANTOPRAZOLE 40 MG INJ IVP SCH (09:00)
--- NOTE | 2020-08-26 11:20 | PREOPHP ---
Date of Admission: 08/25/2020 History Of Present Illness: This is a 25-year-old female at 7 weeks gestation with hyperemesis gravi darum, seen in the Emergency Department, sent up to Labor and Delivery for stabilization. This morni ng, she says she is hungry and wants to eat. We will feed her and if she eats the food and keeps it down, we will dismiss her. Family History: Noncontributory. Past Medical History: No medical history. Past Surgical History: No surgeries. No previous problems with hepatitis or gallstones. Allergies: NO ALLERGIES. Social History: Does not smoke. Physical Examination: HEENT: Clear. Pupils equal, round, reactive to light and accommodation. Conjunctivae well perfused . No oral, lingual, buccal lesion. Chest and Lungs: Clear. Extremities: Clear. Pelvic: Not done. Assessment And Plan: Essentially healthy female, intrauterine gestation 7 weeks, hyperemesis rum, now responding to IV treatment of Zofran. KRISTEN/FAUZIA Voice ID: [id number]
--- NOTE | 2020-08-26 11:26 | DS ---
Date of Discharge: 08/26/2020 The patient was admitted for hyperemesis gravidarum overnight. She has been given hydration and IV Z ofran. Is doing much better, is hungry, wants to eat and go home. We will let her eat and dismiss h er. She has Zofran at home, to continue to take and she is to see me in the office next week. Of no te, her liver enzymes were elevated. We will get another followup on that, but she is not jaundiced and has no obvious hepatic problems at this point. Follow up in my office for hyperemesis gravidarum , now responding. KRISTEN/FAUZIA Voice ID: [id number] Report ID: [id number]
--- NOTE | 2020-08-27 07:28 | EKG ---
Test Date: 2020-08-25 Test Time: 20:10:19 Clinical Services Manager: MEASUREMENT RESULTS: Intervals: Rate: 107 NV: 124 QRSD: 76 QT: 312 QTc: 416 [place]: P: 62 NV: 124 QRS: 15 T: 41 INTERPRETIVE STATEMENTS: Sinus tachycardia Possible Left atrial enlargement Borderline ECG Compared to ECG 02/18/2014 09:02:19 Sinus rhythm no longer present Electronically Signed On 08-27-20 07:26:43 CDT by Sam Willett
== END 2020-08-26 09:10 | disposition home or self-care (01) ==
LOC: ER 18:55 → ERHOLD 21:49 → 2ND-WC 22:54
PROVIDERS: ADMIT Specialist; ATTEND Specialist
DX: O21.0 Mild hyperemesis gravidarum (principal); Z3A.01 Less than 8 weeks gestation of pregnancy; Z20.822 Contact with and (suspected) exposure to COVID-19
CPT/HCPCS: 36415; 71045; 76817; 80048; 80076; 83690; 84484; 84702; 85025; 86900; 86901; 93005; 96374; 96375; 99283; C9113; G0378; J2270; J2405; J7030

== ENCOUNTER 2020-10-26 04:56 | Emergency (ER) | payer OTHER ==
--- NOTE | 2020-10-26 07:50 | ER ---
Nurse's Notes [facility] Name: Roselyn Mason Age: 25 yrs Sex: Female : 1995 Arrival Date: 10/26/2020 Time: 04:58 Bed DIS1 Private MD: Diagnosis: Coronavirus infection, unspecified Presentation: 10/26 05:49 Chief complaint: Patient states: she has been exposed to Covid and now is experiencing bb body aches, a dry cough since yesterday. Coronavirus screen: cough unrelated to allergies, muscle pain. Ebola Screen: No symptoms or risks identified at this time. Initial Sepsis Screen: Does the patient meet any 2 criteria? No. Patient's initial sepsis screen is negative. Does the patient have a suspected source of infection? No. Patient's initial sepsis screen is negative. Risk Assessment: Do you want to hurt yourself or someone else? Patient reports no desire to harm self or others. Onset of symptoms was October 25, 2020. 05:49 Method Of Arrival: Ambulatory bb 05:49 Acuity: TABITHA 3 bb Triage Assessment: 05:50 General: Appears in no apparent distress. uncomfortable, Behavior is calm, cooperative. bb Pain: Complains of pain in all over Pain currently is 8 out of 10 on a pain scale. Neuro: Level of Consciousness is awake, alert, obeys commands, Oriented to person, place, time, situation. Cardiovascular: Capillary refill < 3 seconds Patient's skin is warm and dry. Respiratory: Respiratory effort is even, unlabored, Respiratory pattern is regular. GI: No signs and/or symptoms were reported involving the gastrointestinal system. Derm: Skin is pink, warm \T\ dry. Musculoskeletal: Circulation, motion, and sensation intact. 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 - Social history:: Smoking status: Patient denies any tobacco usage or history of. Patient/guardian denies using alcohol, street drugs. Vital Signs: 05:49 BP 111 / 85; Pulse 114; Resp 18 S; Temp 98.6(O); Pulse Ox 100% on R/A; Weight 69.4 kg bb (R); Height 5 ft. 1 in. (154.94 cm) (R); Pain 8/10; 05:49 Body Mass Index 28.91 (69.40 kg, 154.94 cm) bb ED Course: 04:58 Patient arrived in ED. bp1 05:50 Triage completed. bb 05:50 Arm band placed on Patient placed in waiting room, Patient notified of wait time. Labs bb ordered per protocol. 07:24 Jaz Dailey FNP-C is PHCP. kb 07:24 Ata Fowler MD is Attending Physician. kb 07:48 Natividad Bain, RN is Primary Nurse. iw Administered Medications: No medications were administered Outcome: 07:50 Discharge ordered by . kb 07:54 Patient left the ED. kb Signatures: Jaz Dailey FNP-C FNP-Fabiola Nath, RN RN Natividad Reyna, RN RN Mirna Mariee bp1
--- NOTE | 2020-10-26 07:50 | EDPHYS ---
Physician Documentation [facility] Name: Roselyn Mason Age: 25 yrs Sex: Female : 1995 Arrival Date: 10/26/2020 Time: 04:58 Bed DIS1 Private MD: ED Physician Ata Fowler HPI: 10/26 07:37 This 25 yrs old Female presents to ER via Ambulatory with complaints of Cough, kb Body Aches. 07:37 The patient or guardian reports The patient or guardian reports cough, that is kb intermittent, described as mild, with no sputum, flu symptoms, myalgias. Onset: The symptoms/episode began/occurred yesterday. Severity of symptoms: At their worst the symptoms were moderate, in the emergency department the symptoms are unchanged. Modifying factors: The symptoms are alleviated by nothing, the symptoms are aggravated by nothing. Associated signs and symptoms: Pertinent positives: rhinorrhea, sore throat. The patient has not experienced similar symptoms in the past. The patient has not recently seen a physician. Pt reports recent exposure to COVID. Woke up yesterday with body aches, cough, chills, congestion, sore throat. 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 - Social history:: Smoking status: Patient denies any tobacco usage or history of. Patient/guardian denies using alcohol, street drugs. ROS: 07:37 Cardiovascular: Negative for chest pain, palpitations, and edema. kb 07:37 Constitutional: Positive for body aches, chills, fatigue, malaise. 07:37 ENT: Positive for rhinorrhea, sinus congestion, sore throat. 07:37 Respiratory: Positive for cough, Negative for dyspnea on exertion, hemoptysis, orthopnea, pleurisy, shortness of breath, sputum production, wheezing. 07:37 All other systems are negative. Exam: 07:36 Constitutional: This is a well developed, well nourished patient who is awake, alert, kb and in no acute distress. Head/Face: Normocephalic, atraumatic. ENT: Moist Mucous membranes Respiratory: Respirations even and unlabored. No increased work of breathing, no retractions or nasal flaring. Skin: Warm, dry with normal turgor. Normal color. MS/ Extremity: Pulses equal, no cyanosis. Neurovascular intact. Full, normal range of motion. Neuro: Awake and alert, GCS 15, oriented to person, place, time, and situation. Moves all extremities. Normal gait. Psych: Awake, alert, with orientation to person, place and time. Behavior, mood, and affect are within normal limits. Vital Signs: 05:49 BP 111 / 85; Pulse 114; Resp 18 S; Temp 98.6(O); Pulse Ox 100% on R/A; Weight 69.4 kg bb (R); Height 5 ft. 1 in. (154.94 cm) (R); Pain 8/10; 05:49 Body Mass Index 28.91 (69.40 kg, 154.94 cm) bb MDM: 07:24 Patient medically screened. [facility] 07:36 Data reviewed: vital signs, nurses notes. Data interpreted: Pulse oximetry: on room air kb is 100 %. Interpretation: normal. Counseling: I had a detailed discussion with the patient and/or guardian regarding: the historical points, exam findings, and any diagnostic results supporting the discharge/admit diagnosis, lab results, the need for outpatient follow up, a family practitioner, to return to the emergency department if symptoms worsen or persist or if there are any questions or concerns that arise at home. 10/26 07:51 Order name: SARS-COV-2 RT PCR; Complete Time: 07:51 EDMS Administered Medications: No medications were administered Disposition: 10/27 07:39 Co-signature as Attending Physician, Ata Fowler MD I agree with the assessment and [facility] plan of care. Disposition Summary: 10/26/20 07:50 Discharge Ordered Location: Home kb Condition: Stable kb Diagnosis - Coronavirus infection, unspecified kb Followup: kb - With: Emergency Department - When: As needed - Reason: Worsening of condition Followup: kb - With: Private Physician - When: 2 - 3 days - Reason: Recheck today's complaints, Continuance of care, Re-evaluation by your physician Discharge Instructions: - Discharge Summary Sheet kb - Viral Respiratory Infection, [id number] kb - COVID-19 kb Forms: - Medication Reconciliation Form kb - Thank You Letter kb - Antibiotic Education kb - Prescription Opioid Use kb Signatures: Dispatcher [employer] EDMS Jaz Dailey, WORKERS COMPENSATION SPECIALIST-C ZAYRA-Ata Brewster MD MD cha Ballard, Brenda, RN RN bb Corrections: (The following items were deleted from the chart) 10/26 06:41 05:55 CORONAVIRUS+MR.LAB.BRZ ordered. EDMO EDMS
[2020-10-26 07:58] VITALS: BP 111/85; TEMP 98.6; O2SAT 100
== END 2020-10-26 07:54 | disposition home or self-care (01) ==
LOC: ER 04:56
DX: U07.1 COVID-19 (principal)
CPT/HCPCS: 99282; U0003

== ENCOUNTER 2021-03-26 08:43 | Inpatient (IN) | payer OTHER ==
[2021-03-26] MEDS ORDERED: PROMETHAZINE INJ 25 MG/ML AMP IM PRN (10:10)
[2021-03-26] MEDS ORDERED: BUTORPHANOL 1 MG/ML INJ IV PRN (10:10)
[2021-03-26] MEDS ORDERED: Ringers Lactate 1,000 ML IV PRN (10:10)
[2021-03-26] MEDS ORDERED: METHYLERGONOVINE 0.2MG/ML AMP IM PRN (10:10)
[2021-03-26] MEDS ORDERED: Ringers Lactate 1,000 ML IV SCH (11:00)
[2021-03-26] MEDS ORDERED: OXYTOCIN/LR 20 UNIT/1,000 ML BAG IV SCH ×3 (11:00→17:00)
[2021-03-26] MEDS ORDERED: PENICILLIN 5 MU in NA CHLORIDE 0.9% 100 ML IV ONE (11:00)
[2021-03-26] MEDS ORDERED: OXYTOCIN/LR 20 UNIT/1,000 ML BAG IV ONE (11:14)
[2021-03-26] MEDS ORDERED: LIDOCAINE 1% MPF 30 ML VIAL SQ ONE (11:16)
[2021-03-26 11:40] LABS: Urine Appearance CLEAR (Clear); Urine Bilirubin NEGATIVE (Negative); Urine Blood NEGATIVE (Negative); Urine Color YELLOW (Yellow); Urine Glucose NEGATIVE (Negative); Urine Protein NEGATIVE (Negative); Urine Urobilinogen 0.2 mg/dL (0.2-1.0); Urine pH 6.5 (5.0-7.0)
[2021-03-26 11:42] LABS: Urine Microscopic Reflex NO UMIC
[2021-03-26 12:31] VITALS: BMI 33.0
--- NOTE | 2021-03-26 13:18 | PN ---
The patient has had her first dose of penicillin now for more than an hour. She is gage regul ruba. Requesting epidural. She is now about 4 cm, still only about 50% to 60% effaced, vertex, stil l at the same station, but patient is insisting on epidural. We will hydrate her and call Anesthesia . KRISTEN/FAUZIA Voice ID: [id number] Report ID: [id number]
[2021-03-26] MEDS ORDERED: FENTANYL/BUPIVACAINE/NS/PF 200 MCG/100 ML BAG EP PRN (13:30)
[2021-03-26] MEDS ORDERED: BUPIVACAINE 0.25% PF 10 ML VIAL IV PRN ×2 (13:32→15:50)
[2021-03-26] MEDS ORDERED: FENTANYL CITR 100 MCG/2 ML ONE ×2 (13:54→15:51)
[2021-03-26 13:58] LABS: Absolute Lymphocytes (CBC) 1.5 K/uL (0.7-4.9); Hematocrit 29.2 % (36.0-45.0); Lymphocytes % 18.4 % (15.3-44.8); MPV 8.2 fL (7.6-11.3); RBC Red Blood Cell Count 3.55 M/uL (3.86-4.86)
[2021-03-26] MEDS ORDERED: PENICILLIN 2.5 MU in NA CHLORIDE 0.9% 100 ML IV SCH (15:00)
--- NOTE | 2021-03-26 15:38 | PN ---
Her epidural is very comfortable in fact really cannot feel much of anything. Baby looks good on the monitor. She is now 7 cm, about 90% effaced, 0 almost +1 station. The area around 10 o'clock on th e cervix is a little bit edematous, but not dramatic. We will have her start doing pelvic rocks, inc rease the Pitocin, check her again in 30 minutes to an hour. Hopefully, she will be ready to deliver . KRISTEN/FAUZIA Voice ID: [id number] Report ID: [id number]
[2021-03-26] MEDS ORDERED: FENTANYL CITR 100 MCG/2 ML IV ONE (15:50)
[2021-03-26] MEDS ORDERED: BUPIVACAINE 0.25% PF 10 ML VIAL ONE (15:50)
[2021-03-26] MEDS ORDERED: BISACODYL 10 MG RECTAL SUPP PR PRN (16:16)
[2021-03-26] MEDS ORDERED: DOCUSATE NA/SENNA CONC 1 TAB PO PRN (16:16)
[2021-03-26] MEDS ORDERED: DIPHENHYDRAMINE 25 MG TAB/CAP PO PRN (16:16)
[2021-03-26] MEDS ORDERED: ACETAMINOPHEN 500 MG TAB PO PRN (16:16)
[2021-03-26] MEDS ORDERED: Oxycodone HCl/Acetaminophen 1 TAB TAB PO PRN (16:16)
--- NOTE | 2021-03-26 16:27 | OP ---
Surgeon: Nazario Zavala MD Procedure In Detail: Roselyn Mason is a 25-year-old 6, para 3, 37 weeks and 1 day, came i n active labor. Received epidural anesthesia. Rupture of membranes at 3 cm, clear fluid. After ach ieving 5 cm, went rapidly to complete second stage of 10 minutes or less. Spontaneous vaginal delive ry of a 6-pounds 15-ounce female, Apgars 9 and 9. No episiotomy. No laceration. Loose nuchal cord x1. Schultze delivery of the placenta. Placenta inspected and noted to be intact and normal. 250 c c or less blood loss. Rh positive, immune to rubella, positive strep. She was given penicillin at [facility] once, possibly twice during the labor. Tolerated all procedures well. Final Diagnoses: Term intrauterine at 37 weeks 1 day, spontaneous labor, vaginal delivery, epidural anesthesia, penicillin prophylaxis. KRISTEN/FAUZIA Voice ID: [id number] Report ID: [id number]
[2021-03-26] MEDS ORDERED: IBUPROFEN 600 MG TAB PO PRN (16:38)
[2021-03-26] MEDS: Oxycodone HCl/Acetaminophen 1 TAB TAB PO PRN (20:31)
[2021-03-27] MEDS: Oxycodone HCl/Acetaminophen 1 TAB TAB PO PRN ×3 (01:36→16:35)
--- NOTE | 2021-03-27 07:39 | DS ---
Roselyn Mason, a 25-year-old, 6, para 3, 37 weeks and 1 day, although there is some consid eration that she could be further long as her menstrual period was not precise; however, it was in ac cordance with the ultrasound. She came in at 37 weeks and 1 day, in active labor. Subsequently spenser lupe uneventfully of a 6-pound 15-ounce female. Apgars 9 and 9. Epidural anesthesia. No episiotom y. No laceration. Schultze delivery of the placenta. Placenta inspected and noted to be intact and normal. Less than 250 cc blood loss. The patient received penicillin prophylaxis during her labor as she was beta-strep positive. , afebrile. Ambulating, voiding. Lochia is normal. She is Rh positive, immune to rubella, negative HIV, negative hep. She has had her Tdap immunization. S he has no post epidural problems. Requested no analgesics on dismissal. Full instructions given. T o report back to my office in 6 weeks for followup. To report any problems, fever, severe pain, heav y bleeding. Doing well at this point. No complaints or problems. Final Diagnoses: Intrauterine gestation, 37 weeks 1 day. Spontaneous labor, vaginal delivery. Epid ural anesthesia. Penicillin prophylaxis. KRISTEN/FAUZIA Voice ID: [id number] Report ID: [id number]
[2021-03-27 14:09] VITALS: TEMP 98
[2021-03-27 17:59] VITALS: BP 127/70
[2021-03-27 21:42] LABS: RPR (Rapid Plasma Reagin) NON-REACT (NON-REACT)
[2021-03-30 19:41] LABS: HBsAG Nonreactive (Nonreactive)
== END 2021-03-27 17:55 | disposition home or self-care (01) | DRG 807 ==
LOC: L&D 08:43 → 2ND-WC 10:12
PROVIDERS: ADMIT Specialist; ATTEND Specialist
PROC: 10E0XZZ Delivery of Products of Conception, External Approach (ICD-10-PCS; principal; 2021-03-26)
DX: O99.824 Streptococcus B carrier state complicating childbirth (principal); Z37.0 Single live birth; Z3A.37 37 weeks gestation of pregnancy; Z20.822 Contact with and (suspected) exposure to COVID-19
CPT/HCPCS: 36415; 81003; 85025; 86592; 86901; 87340; 87389; G0433; J2210; J2540; J2590; J3010; J7120; U0003

== ENCOUNTER 2021-07-21 19:58 | Emergency (ER) | payer OTHER ==
--- NOTE | 2021-07-21 22:44 | ER ---
Nurse's Notes [facility] Name: Roselyn Mason Age: 26 yrs Sex: Female : 1995 Arrival Date: 07/21/2021 Time: 20:01 Bed 10 Private MD: Diagnosis: Rash and other nonspecific skin eruption Presentation: 07/21 20:18 Chief complaint: Patient states: Poison janet on face, arms, chest. Coronavirus screen: ld1 At this time, the client does not indicate any symptoms associated with coronavirus-19. Ebola Screen: No symptoms or risks identified at this time. Initial Sepsis Screen: Does the patient meet any 2 criteria? No. Patient's initial sepsis screen is negative. Does the patient have a suspected source of infection? No. Patient's initial sepsis screen is negative. Risk Assessment: Do you want to hurt yourself or someone else? Patient reports no desire to harm self or others. Onset of symptoms was July 21, 2021. 20:18 Method Of Arrival: Ambulatory ld1 20:18 Acuity: TABITHA 4 ld1 Triage Assessment: 20:19 General: Appears in no apparent distress. comfortable, Behavior is calm, cooperative, ld1 appropriate for age. Pain: Denies pain. EENT: No signs and/or symptoms were reported regarding the EENT system. Neuro: Bello Agitation-Sedation Scale (RASS): 0 - Alert and Calm Level of Consciousness is awake, alert, obeys commands, Oriented to person, place, time, situation. Cardiovascular: Capillary refill < 3 seconds Patient's skin is warm and dry. Respiratory: Airway is patent Respiratory effort is even, unlabored. Derm: Rash noted that is itchy, red. Historical: - Allergies: 20:19 No Known Allergies; ld1 - PMHx: 20:19 Anemia; ld1 - PSHx: 20:19 None; ld1 - Immunization history:: Adult Immunizations up to date, Client reports having NOT received the Covid vaccine. - Social history:: Smoking status: Patient reports the use of cigarette tobacco products, smokes one-half pack cigarettes per day, Patient uses alcohol, occasionally. Screenin:02 Abuse screen: Denies threats or abuse. Denies injuries from another. Nutritional ld1 screening: No deficits noted. Tuberculosis screening: No symptoms or risk factors identified. Fall Risk None identified. Assessment: 23:02 Reassessment: see triage assessment. ld1 Vital Signs: 20:18 BP 144 / 111; Pulse 99; Resp 18; Temp 98.3(TE); Pulse Ox 100% on R/A; Weight 80.74 kg; ld1 Height 5 ft. 1 in. (154.94 cm); Pain 0/10; 23:02 BP 136 / 99; Pulse 93; Resp 18; Pulse Ox 100% on R/A; ld1 20:18 Body Mass Index 33.63 (80.74 kg, 154.94 cm) ld1 ED Course: 20:01 Patient arrived in ED. ja2 20:03 Bill Massey PA is PHCP. karina 20:03 Ata Fowler MD is Attending Physician. [facility] 20:19 Triage completed. ld1 20:19 Arm band placed on right wrist. ld1 23:02 Patient has correct armband on for positive identification. Placed in gown. Bed in low ld1 position. Call light in reach. Side rails up X2. monitoring manager on. Pulse ox on. NIBP on. Door closed. Noise minimized. Warm blanket given. 23:02 No provider procedures requiring assistance completed. Patient did not have IV access ld1 during this emergency room visit. Administered Medications: 22:55 Drug: Decadron (dexamethasone) 10 mg Route: IM; Site: right deltoid; ld1 23:02 Follow up: Response: No adverse reaction ld1 Outcome: 22:44 Discharge ordered by . karina 23:02 Discharged to home ambulatory. ld1 23:02 Condition: stable 23:02 Discharge instructions given to patient, Instructed on discharge instructions, follow up and referral plans. medication usage, Demonstrated understanding of instructions, follow-up care, medications, Prescriptions given X 2. 23:04 Patient left the ED. ld1 Signatures: Bill Massey PA PA jmm Dibbern, Lauren, RN RN ld1 Meri Le
--- NOTE | 2021-07-21 22:44 | EDPHYS ---
Physician Documentation [facility] Name: Roselyn Mason Age: 26 yrs Sex: Female : 1995 Arrival Date: 07/21/2021 Time: 20:01 Bed 10 Private MD: ED Physician Ata Fowler HPI: 07/21 20:29 This 26 yrs old Female presents to ER via Ambulatory with complaints of jmm POISION JEAN-PIERRE. 20:29 The patient's rash thought to be caused by Dermatitis Contact allergy. The rash is jmm located on the body diffusely. Onset: The symptoms/episode began/occurred gradually. Associated signs and symptoms: Pertinent positives: itching, Pertinent negatives: swelling of lips, swelling of throat, swelling of tongue. The patient has not experienced similar symptoms in the past. Historical: - Allergies: 20:19 No Known Allergies; ld1 - PMHx: 20:19 Anemia; ld1 - PSHx: 20:19 None; ld1 - Immunization history:: Adult Immunizations up to date, Client reports having NOT received the Covid vaccine. - Social history:: Smoking status: Patient reports the use of cigarette tobacco products, smokes one-half pack cigarettes per day, Patient uses alcohol, occasionally. ROS: 20:29 Constitutional: Negative for fever, chills, and weight loss, Cardiovascular: Negative jmm for chest pain, palpitations, and edema, Respiratory: Negative for shortness of breath, cough, wheezing, and pleuritic chest pain. 20:29 Skin: Positive for rash. 20:29 All other systems are negative. Exam: 20:29 Constitutional: This is a well developed, well nourished patient who is awake, alert, jmm and in no acute distress. Head/Face: atraumatic. Eyes: EOMI, no conjunctival erythema appreciated ENT: Moist Mucus Membranes Neck: Trachea midline, Supple Chest/axilla: Normal chest wall appearance and motion. Cardiovascular: Regular rate and rhythm. No edema appreciated Respiratory: Normal respirations, no respiratory distress appreciated Abdomen/GI: Non distended, soft Back: Normal ROM 20:29 MS/ Extremity: Moves all extremities, no obvious deformities appreciated, no edema noted to the lower extremities Neuro: Awake and alert Psych: Behavior is normal, Mood is normal, Patient is cooperative and pleasant 20:29 Skin: Appearance: contact dermatitis. Vital Signs: 20:18 BP 144 / 111; Pulse 99; Resp 18; Temp 98.3(TE); Pulse Ox 100% on R/A; Weight 80.74 kg; ld1 Height 5 ft. 1 in. (154.94 cm); Pain 0/10; 23:02 BP 136 / 99; Pulse 93; Resp 18; Pulse Ox 100% on R/A; ld1 20:18 Body Mass Index 33.63 (80.74 kg, 154.94 cm) ld1 MDM: 20:29 Patient medically screened. [facility] 22:39 Data reviewed: vital signs, nurses notes. Counseling: I had a detailed discussion with [facility] the patient and/or guardian regarding: the historical points, exam findings, and any diagnostic results supporting the discharge/admit diagnosis, the need for outpatient follow up, to return to the emergency department if symptoms worsen or persist or if there are any questions or concerns that arise at home. Administered Medications: 22:55 Drug: Decadron (dexamethasone) 10 mg Route: IM; Site: right deltoid; ld1 23:02 Follow up: Response: No adverse reaction ld1 Disposition Summary: 07/21/21 22:44 Discharge Ordered Location: Home [facility] Condition: Stable [facility] Diagnosis - Rash and other nonspecific skin eruption [facility] Followup: [facility] - With: Private Physician - When: 2 - 3 days - Reason: Recheck today's complaints, Continuance of care, Re-evaluation by your physician Discharge Instructions: - Discharge Summary Sheet [facility] - Poison Jean-Pierre Dermatitis [facility] Forms: - Medication Reconciliation Form [facility] - Thank You Letter [facility] - Antibiotic Education [facility] - Prescription Opioid Use [facility] Prescriptions: - Prednisone 20 mg Oral Tablet - take 3 tablets by ORAL route once daily for 12 days Take 3 tablets by mouth [facility] daily for 3 days, then take 2 tabs by mouth daily for 3 days, then take 1 tab by mouth daily for 3 days, then take one half tab by mouth daily for 3 days; 20 tablet; Refills: 0, Product Selection Permitted - Hydroxyzine HCl 25 mg Oral Tablet - take 1 tablet by ORAL route every 6 hours As needed; 30 tablet; Refills: 0, [facility] Product Selection Permitted Signatures: Bill Massey PA PA jmm Dibbern, Lauren, RN RN ld1
[2021-07-21] MEDS ORDERED: dexAMETHasone 10 MG/ML VIAL ONE (23:02)
[2021-07-22 00:54] VITALS: TEMP 98.3; O2SAT 100
[2021-07-22 00:56] VITALS: BP 136/99
== END 2021-07-21 23:04 | disposition home or self-care (01) ==
LOC: ER 19:58
DX: R21 Rash and other nonspecific skin eruption (principal); F17.210 Nicotine dependence, cigarettes, uncomplicated
CPT/HCPCS: 96372; 99284; J1100

== ENCOUNTER 2021-08-01 16:29 | Emergency (ER) | payer OTHER ==
--- NOTE | 2021-08-01 18:10 | ER ---
Nurse's Notes [facility] Name: Roselyn Mason Age: 26 yrs Sex: Female : 1995 Arrival Date: 08/01/2021 Time: 16:31 Bed 12 Private MD: Diagnosis: Allergic dermatitis of right upper eyelid;Allergic contact dermatitis due to other agents Presentation: 08/01 16:51 Chief complaint: Patient states: I was hear 2 weeks ago and was told I needed steroids jb4 for my poison janet. I just finished them yesterday. I woke up and noticed both my eyes were swelling and became blurry off and on more so in the left eye. Coronavirus screen: At this time, the client does not indicate any symptoms associated with coronavirus-19. Ebola Screen: No symptoms or risks identified at this time. Initial Sepsis Screen: Does the patient meet any 2 criteria? No. Patient's initial sepsis screen is negative. Does the patient have a suspected source of infection? No. Patient's initial sepsis screen is negative. Risk Assessment: Do you want to hurt yourself or someone else? Patient reports no desire to harm self or others. Onset of symptoms was August 01, 2021. Transition of care: patient was not received from another setting of care. 16:51 Method Of Arrival: Ambulatory jb4 16:51 Acuity: TABITHA 4 jb4 Historical: - Allergies: 16:53 No Known Allergies; jb4 - Home Meds: 16:53 hydroxyzine HCl Oral [Active]; jb4 - PMHx: 16:53 Anemia; jb4 - PSHx: 16:53 None; jb4 - Immunization history:: Adult Immunizations up to date. - Social history:: Smoking status: Patient reports the use of cigarette tobacco products, Patient uses alcohol, occasionally. Patient/guardian denies using street drugs. Screenin:23 Abuse screen: Denies threats or abuse. Nutritional screening: No deficits noted. jb4 Tuberculosis screening: No symptoms or risk factors identified. Fall Risk None identified. Assessment: 18:23 General: Appears in no apparent distress. comfortable. Pain: Denies pain. Neuro: Level jb4 of Consciousness is awake, alert, obeys commands, Oriented to person, place, time, situation. Cardiovascular: Patient's skin is warm and dry. Respiratory: Airway is patent Respiratory effort is even, unlabored, Respiratory pattern is regular, symmetrical. GI: No signs and/or symptoms were reported involving the gastrointestinal system. : No signs and/or symptoms were reported regarding the genitourinary system. EENT: No signs and/or symptoms were reported regarding the EENT system. Derm: Skin is intact, Skin is pink, warm \T\ dry. Rash noted that is itchy, red, on left eye and chest. Musculoskeletal: Circulation, motion, and sensation intact. Range of motion: intact in all extremities. Vital Signs: 16:51 BP 141 / 98; Pulse 98; Resp 16; Temp 97.5(TE); Pulse Ox 100% on R/A; Weight 77.11 kg jb4 (R); Height 5 ft. 1 in. (154.94 cm) (R); Pain 0/10; 16:51 Body Mass Index 32.12 (77.11 kg, 154.94 cm) jb4 Visual Acuity: 17:00 Left Eye Visual acuity 20/20, Pupil size 4 mm, Normal, React To Light, Reactive To jb4 Accomodation; Right Eye Visual acuity 20/20, Pupil size 4 mm, Normal, React To Light, Reactive To Accomodation; Both Eyes Visual acuity 20/20; Without Lenses; ED Course: 16:31 Patient arrived in ED. am2 16:53 Triage completed. jb4 16:53 Arm band placed on right wrist. jb4 16:58 Shea Matthew PA is PHCP. en 16:58 Filippo Mills MD is Attending Physician. en 18:23 Patient has correct armband on for positive identification. Bed in low position. Call jb4 light in reach. Side rails up X 1. 18:23 No provider procedures requiring assistance completed. Patient did not have IV access jb4 during this emergency room visit. Administered Medications: No medications were administered Medication: 18:23 VIS not applicable for this client. jb4 Outcome: 18:09 Discharge ordered by . en 18:23 Discharged to home ambulatory. jb4 18:23 Condition: stable 18:23 Discharge instructions given to patient, Instructed on discharge instructions, follow up and referral plans. medication usage, Demonstrated understanding of instructions, follow-up care, medications, Prescriptions given X 1. 18:25 Patient left the ED. jb4 Signatures: Kenrick Bruce RN RN jb4 Danielle Cornejo am2 Shea Matthew PA PA en
--- NOTE | 2021-08-01 18:10 | EDPHYS ---
Physician Documentation [facility] Name: Roselyn Mason Age: 26 yrs Sex: Female : 1995 Arrival Date: 08/01/2021 Time: 16:31 Bed 12 Private MD: ED Physician Filippo Mills HPI: 08/01 17:57 This 26 yrs old Female presents to ER via Ambulatory with complaints of Eye en Swelling, Blurred Vision. 17:57 poison janet. Onset: The symptoms/episode began/occurred gradually, 1 week(s) ago. en Duration: the symptoms are continuous. Aggravated by rubbing, Alleviated by slightly improved with prednisone taper but not resolved. Associated signs and symptoms: Pertinent positives: bilateral eyes itching with increased lacrimation, blurred vision resolved. No eye pain, redness, or diplopia. Severity of symptoms: At their worst the symptoms were mild. 26 yo F presents to ED for persistent poison janet on chest x 1 week with bilateral eye swelling/itching L>>R. No eye pain, redness, drainage. Had mild left eye blurred vision that has resolved. Seen in ED last week and completed 7d steroid taper as well as hydroxyzine. Rash on chest has improved but not resolved. . Historical: - Allergies: 16:53 No Known Allergies; jb4 - Home Meds: 16:53 hydroxyzine HCl Oral [Active]; jb4 - PMHx: 16:53 Anemia; jb4 - PSHx: 16:53 None; jb4 - Immunization history:: Adult Immunizations up to date. - Social history:: Smoking status: Patient reports the use of cigarette tobacco products, Patient uses alcohol, occasionally. Patient/guardian denies using street drugs. ROS: 18:03 Constitutional: Negative for fever, chills, and weight loss. en 18:03 Eyes: Positive for itching, swelling, left eye blurred vision resolved, Negative for discharge, matting, pain, photophobia, redness. 18:03 Skin: Positive for pruritic rash to chest with satellite patches to BUE. 18:03 All other systems are negative. Exam: 18:03 Constitutional: This is a well developed, well nourished patient who is awake, alert, en and in no acute distress. 18:03 Eyes: Exam is negative for drainage, erythema, exudate, Periorbital structures: mild periorbital edema without induration or TTP, Pupils: equal, round, and reactive to light and accomodation, Extraocular movements: intact throughout, Conjunctiva: normal, Lids and lashes: appear normal. 18:03 Cardiovascular: Rate: normal, Rhythm: regular, Pulses: no pulse deficits are appreciated, Heart sounds: normal, murmur, not appreciated, rub, not appreciated, gallop, not appreciated. 18:03 Respiratory: the patient does not display signs of respiratory distress, Respirations: normal, Breath sounds: are clear throughout. 18:03 Skin: raised papular rash on erythematous base on chest with satellite patches on BUE. 18:03 Neuro: Orientation: is normal, appropriate for stated age, to person, place \T\ time. Vital Signs: 16:51 BP 141 / 98; Pulse 98; Resp 16; Temp 97.5(TE); Pulse Ox 100% on R/A; Weight 77.11 kg jb4 (R); Height 5 ft. 1 in. (154.94 cm) (R); Pain 0/10; 16:51 Body Mass Index 32.12 (77.11 kg, 154.94 cm) jb4 Visual Acuity: 17:00 Left Eye Visual acuity 20/20, Pupil size 4 mm, Normal, React To Light, Reactive To jb4 Accomodation; Right Eye Visual acuity 20/20, Pupil size 4 mm, Normal, React To Light, Reactive To Accomodation; Both Eyes Visual acuity 20/20; Without Lenses; MDM: 18:03 Differential diagnosis: poison janet, periorbital cellulitis, conjunctivitis. Data en reviewed: vital signs, nurses notes, and as a result, I will discharge patient. ED course: Spoke with pt regarding duration of steroid tx. Will extend x 2 weeks. has enough hydroxyzine. No e/o periorbital cellulitis, conjunctivitis or corneal involvement at this time. Ok for d/c home. 18:09 Patient medically screened. en Administered Medications: No medications were administered Disposition Summary: 08/01/21 18:09 Discharge Ordered Location: Home en Condition: Stable en Diagnosis - Allergic dermatitis of right upper eyelid en - Allergic contact dermatitis due to other agents en Followup: en - With: Private Physician - When: As needed - Reason: Discharge Instructions: - Discharge Summary Sheet en Forms: - Medication Reconciliation Form en - Thank You Letter en - Antibiotic Education en - Prescription Opioid Use en Prescriptions: - prednisone (bulk) - take 20 milligram by ORAL route once daily 60mg po QD x 4d, then 40mg po QD x en 4d, then 20mg po QD x 4d.; 24 tablet; Refills: 0, Product Selection Permitted Signatures: Kenrick Bruce RN RN jb4 Shea Matthew PA PA en
[2021-08-01 21:34] VITALS: BP 141/98; TEMP 97.5; O2SAT 100
== END 2021-08-01 18:25 | disposition home or self-care (01) ==
LOC: ER 16:29
DX: L23.89 Allergic contact dermatitis due to other agents (principal); L23.9 Allergic contact dermatitis, unspecified cause; Z72.0 Tobacco use
CPT/HCPCS: 99282

== ENCOUNTER 2022-04-16 09:35 | Emergency (ER) | payer OTHER ==
--- OUTSIDE RECORDS SUMMARY | 2022-04-16 09:38 | XMS REPORT | Continuity of Care Document ---
:1995 [facility] t Address [address] [place] [address] Care Team Providers Name Role Phone Pcp, Patient Does Not Have A Primary Care Physician +[id number] RAMONA THOMPSON Attending Clinician Unavailable Jamie GRANDE, Floresita Attending Clinician Ramona Thompson MD Attending Clinician Tiffanie Moreau NP Attending Clinician RAMONA THOMPSON Admitting Clinician Unavailable Ramona Thompson MD Admitting Clinician Payers Payer Name Policy Type Policy Number Effective Date Expiration Date Critical access hospital [id number] 2022 [facility] 00:00:00 Problems Condition Condition Condition Status Onset Resolution Last Treating Co mments Source Name Details Category Date Date Treatment Clinician Date 7 weeks 7 weeks Disease Active Univers gestation gestation 1-19 ity of of of 00:00: [place] 00 [facility] Branch Nausea and Nausea and Disease Active 2016-03 U nivers vomiting vomiting 0-12 ity of during during 00:00: [place] 00 Medi carlitos prior to prior to Branch 22 weeks 22 weeks gestation gestation LGSIL on LGSIL on Disease Active Overview: Un wes Pap smear Pap smear 12-10 Formattin i ty of of cervix of cervix 00:00: g of this [place] 00 note Medical might be Branch different from the original. Will need cytology in 12 months Former Former Disease Active Univers tobacco tobacco -14 ity of use use 00:00: [address] Branch Overweight Overweight Disease Active U nivers (BMI (BMI -14 ity of 25.0-29.9) 25.0-29.9) 00:00: [place] 00 Medical Branch Disease Active Uni vers with with 9-14 ity of history of history of 00:[place] miscarriag miscarriag 00 Me dical e, first e, first Branch trimester trimester High risk High risk Disease Active Uni vers , , 14 it y of antepartum antepartum 00:00[place] 00 [facility] Allergies, Adverse Reactions, Alerts Allergy Allergy Status Severity Reaction(s) Onset Inactive Treating Comm ents Source Name Type Date Date Clinician NO KNOWN Drug Active Univers ALLERGIE Class ity of S [facility] Social History Social Habit Start Date Stop Date Quantity Comments Source ASSERTION 2022-03-02 University 00:00:00 [facility] Alcohol intake 2022-04-09 2022-04-09 Current [facility] 00:00:00 00:00:00 non-drinker of [facility] alcohol (finding) Branch Exposure to 2022-03-29 2022-04-08 Not sure [facility] SARS-CoV-2 00:00:00 11:36:00 [facility] (event) Branch Tobacco use and 2016-12-02 2016-12-02 Smokeless tobacco Un iversity of exposure 00:00:00 00:00:[address] [facility] History of 2014-12-02 2016-11-25 Cigarette Smoker Universi ty of tobacco use 00:00:00 00:00:00 [facility] Sex Ass[birth year] At [birth year] Universit y of 00:00:00 00:00:00 [facility] Smoking Status Start Date Stop Date Source Ex-smoker 2016-12-02 00:00:00 2016-12-02 00:00:00 Universi ty [facility] Medications Ordered Filled Start Stop Current Ordering Indication Dosage Frequency Signature Comments Components Source Medication Medication Date Date Medication? Clinician (SIG) Name Name metoclopram Yes 10mg Take 1 Univ ers [place]ores HCl 10 1-23 tablet by ity of mg tablet 00:00: mouth 3 00 (three) Medical times Branch daily as needed for Nausea and Vomiting (N/V). metoclopram 2022-0 Yes 10mg Take 1 Univ ers [place] HCl 10 1-23 tablet by ity of mg tablet 00:00: mouth 3 00 (three) Medical times Branch daily as needed for Nausea and Vomiting (N/V). proMETHazin 2022-0 Yes 25mg 25 mg, Univ ers e -20 Oral, ity of (PHENERGAN) 13:53: Q4HPRN, [place] as tablet 25 09 Starting Medica l mg on Fri Branch 04/09/22 at 0753, Until Discontinu ed, Routine, Nausea and Vomiting (N/V) proMETHazin 2022-0 2022- No 25mg 25 mg, IV Univers e 04-09- Piggyback, ity of (PHENERGAN) 03:42: 13:55 [place]PRN, [place] 25 mg in 49 :16 Starting Medical NaCl 0.9% on Jenn Branch (NS) 50 mL 04/08/22 at IV 2142, piggyback Until 04/09/22 at 0755, Routine, Nausea and Vomiting (N/V) D5W-LR IV 0 Yes 1000mL at 200 Univ ers infusion 1-20 mL/hr, IV ity of 1,000 mL 01:00: [place] CONTINUOUS Medical , Starting Branch on Tue04/08/22 at 1900, Until Discontinu ed, Routine proMETHazin 2022-0 Yes [id number] 25mg Take 1 Univers e 25 mg 1-20 tablet by ity of tablet 00:00: mouth [place] 00 every 4 Medical (four) Branch hours as needed for Nausea and Vomiting (N/V). proMETHazin 2022-0 Yes [id number] 25mg Insert 1 Univers e 25 mg 1-20 Suppositor ity of suppository 00:00: [place] rectum Medical every 4 Branch (four) hours as needed for N/V unresponsi ve to oral antiemetic s. pyridoxine, 2022-0 Yes [id number] 25mg Take 1 Univers VITAMIN 1-20 tablet by ity of B-6, 00:00: mouth [place] (VITAMIN 00 every 6 Medical B-6) 25 mg (six) Branch tablet hours as needed for Nausea and Vomiting (N/V). proMETHazin 2022-0 Yes [id number] 25mg Take 1 Univers e 25 mg 1-20 tablet by ity of tablet 00:00: mouth [place] 00 every 4 Medical (four) Branch hours as needed for Nausea and Vomiting (N/V). proMETHazin 2022-0 Yes [id number] 25mg Insert 1 Univers e 25 mg 1-20 Suppositor ity of suppository 00:00: [place] rectum Medical every 4 Branch (four) hours as needed for N/V unresponsi ve to oral antiemetic s. pyridoxine, 0 Yes [id number] 25mg Take 1 Univers VITAMIN 1-20 tablet by ity of B-6, 00:00: mouth [place] (VITAMIN 00 every 6 Medical B-6) 25 mg (six) Branch tablet hours as needed for Nausea and Vomiting (N/V). proMETHazin 0 Yes [id number] 25mg Take 1 Univers e 25 mg 1-20 tablet by ity of tablet 00:00: mouth [place] 00 every 4 Medical (four) Branch hours as needed for Nausea and Vomiting (N/V). proMETHazin 0 Yes [id number] 25mg Insert 1 Univers e 25 mg 1-20 Suppositor ity of suppository 00:00: y [place] 00 rectum Medical every 4 Branch (four) hours as needed for N/V unresponsi ve to oral antiemetic s. pyridoxine, 0 Yes [id number] 25mg Take 1 Univers VITAMIN 1-20 tablet by ity of B-6, 00:00: mouth [place] (VITAMIN 00 every 6 Medical B-6) 25 mg (six) Branch tablet hours as needed for Nausea and Vomiting (N/V). NaCl 0.9% 2022- No 1000mL at 999 Uni vers (NS) IV 04-08 01-19 mL/hr, ity of infusion 22:45: 21:56 [place]ou [place] 1,000 mL 00 :00 s, ONCE, 1 Medic al dose, On Branch Jenn 04/08/22 at 1645, KATE acetaminoph 2022- No 650mg 650 mg, U nivers en 04-08 Oral, ity of (TYLENOL) 21:15: 21:04 ONCE, 1 [place] tablet 650 00 :00 dose, On Medic al mg [place] Branch 04/08/22 at 1515, KATE proCHLORper 2022- No 10mg 10 mg, IV Univers azine 04-08 Piggyback, ity of (COMPAZINE) 18:59: 14:01 at 100 [place] 10 mg in 00 :59 mL/hr Medical NaCl 0.9% Administer Bran ch (NS) over 30 piggyback Minutes, Q6HPRN, Starting on Jenn 04/08/22 at 1259, Until Tue04/09/22 at 0801, Routine, Nausea and Vomiting (N/V) NaCl 0.9% 2022- No 1000mL at 999 Uni vers (NS) bolus 04-08 mL/hr, ity of infusion 18:45: 19:11 1,000 mL, [place] as 1,000 mL 00 :00 IV Medical Infusion, Branch ONCE, 1 dose, On Jenn 04/08/22 at 1245, KATE proMETHazin 2022- No 25mg 25 mg, IV Univers e 04-08 Piggyback, ity of (PHENERGAN) 18:00: 18:05 ONCE, 1 [place] 25 mg in 00 :00 dose, On Medical NaCl 0.9% [place] Branch (NS) 50 mL 04/08/22 at IV 1200, KATE piggyback proMETHazin 2016-03 Yes [id number] 25mg Take 1 Univers e 25 mg 0-12 tablet by ity of tablet 00:00: mouth [place] 00 every 6 Medical (six) Branch hours as needed for Nausea and Vomiting (N/V) (q4-6 hr prn N/V). proMETHazin 2016-03 Yes [id number] 25mg Take 1 Univers e 25 mg 0-12 tablet by ity of tablet 00:00: mouth [place] 00 every 6 Medical (six) Branch hours as needed for Nausea and Vomiting (N/V) (q4-6 hr prn N/V). proMETHazin 2016-03- No [id number] 25mg Take 1 Univers e 25 mg 0-12 -24 tablet by ity of tablet 00:00: 00:00 mouth [place] 00 :00 every 6 Medical (six) Branch hours as needed for Nausea and Vomiting (N/V) (q4-6 hr prn N/V). [id number] Yes [id number] 1{tbl} Take 1 Univers 3-dha-epa-f 9-14 tablet by ity of jessica oil 00:00: mouth [place] ( 00 daily. She Medi carlitos GUMMY) 400 may have Branc h mcg-35 mg any brand -25 mg-5 mg covered by Chew her insurance. [id number] Yes [id number] 1{tbl} Take 1 Univers 3-dha-epa-f 9-14 tablet by ity of jessica oil 00:00: mouth [place] ( 00 daily. She Medi carlitos GUMMY) 400 may have Branc h mcg-35 mg any brand -25 mg-5 mg covered by Chew her insurance. [id number] Yes [id number] 1{tbl} Take 1 Univers 3-dha-epa-f 9-14 tablet by ity of jessica oil 00:00: mouth [place] ( 00 daily. She Medi carlitos GUMMY) 400 may have Branc h mcg-35 mg any brand -25 mg-5 mg covered by Chew her insurance. Vital Signs Vital Name Observation Time Observation Value Comments Source Systolic blood 2022-04-09 20:05:00 132 mm[Hg] [facility] Diastolic blood 2022-04-09 20:05:00 94 mm[Hg] [facility] Heart rate 2022-04-09 20:05:00 87 /min [facility] Body temperature 2022-04-09 20:05:00 36.83 [facility] Respiratory rate 2022-04-09 20:05:00 16 /min [facility] Oxygen saturation in 2022-04-09 20:05:00 100 /min [facility] Arterial blood by [facility] Pulse oximetry Branch Body height 2022-04-08 17:37:00 154.9 cm [facility] Body weight 2022-04-08 17:37:00 78.019 kg [facility] BMI 2022-04-08 17:37:00 32.50 kg/m2 [facility] Procedures Procedure Date / Time Performed Performing Clinician Ghazala e XR CHEST 1 VW 2022-04-08 20:17:18 Tiffanie Moreau [facility] LIPASE 2022-04-08 18:02:00 Tiffanie Moreau [facility] MAGNESIUM 2022-04-08 18:02:00 Tiffanie Moreau [facility] HEPATIC FUNCTION PANEL 2022-04-08 18:02:00 Tiffanie Moreau [facility] ([id number]) [facility] (ALB,T.PRO,BILI T,BU/BC,ALT,AST,ALK PHOS) BASIC METABOLIC PANEL 2022-04-08 18:02:00 Tiffanie Moreau [facility] (NA, K, CL, CO2, Medical Branch GLUCOSE, BUN, CREATININE, CA) CBC WITH DIFF 2022-04-08 18:02:00 Tiffanie Moreau [facility] URINALYSIS 2022-04-08 18:02:00 Tiffanie Moreau [facility] CONSENT/REFUSAL FOR 2022-04-08 17:26:41 Doctor Unassigned, No Un [facility] DIAGNOSIS AND Name [facility] TREATMENT Encounters Start End Encounter Admission Attending Care Care Encounter Source Date/Time Date/Time Type Type Clinicians Facility Department ID 2022-04-09 Outpatient X [facility] PATT [id number] Univers 15:11:[address] [facility] 2022-04-23 2022-04-23 Outpatient R RAMONA THOMPSON [facility] [id number] Univers 09:00:00 09:00:[address] [facility] 2022-04-13 2022-04-13 Case Jamie MDJENNIFER KERR [id number] Univers 00:00:00 00:00:00 Management Floresita HUNT [id number] ity of WOMEN'S [id number] [facility] [id number] [place] [address] Branch 2022-04-12 2022-04-12 Telephone Ramona Thompson [facility]ANN[facility] [id number] Univers 00:00:00 00:00:00 Mike HUNT [id number] it y of [facility] 4.2.7.2.686 [facility] [id number] [facility]INIC 134 Branch 2022-04-08 2022-04-09 [facility] Tiffanie Moreau [facility] [id number]. [id number] Univers 11:44:00 14:55:00 Encounter Ramona Thompson [id number] ity of [place] 4.2.7.2.686 [facility] [id number] [facility] 083 Branch 2022-04-08 2022-04-09 Outpatient X RAMONA THOMPSON [facility] PATT [id number] [facility] 11:44:00 14:55:00 [facility] Results Test Description Test Time Test Comments Results Result Comments Source HEPATIC FUNCTION PANEL (46628) (ALB,T.PRO,BILI 2022-04-08 18 :47:59 T,BU/BC,ALT,AST,ALK PHOS) Test Item Value Reference Range Interpretation Comme nts TOTAL BILI (test code = 6566110579) 0.7 mg/dL 0.1-1.1 BILI UNCON (test code = 7477830842) 0.4 mg/dL 0.1-1.1 BILI CONJ (test code = 8327876245) 0.0 mg/dL 0.0-0.3 T PROTEIN (test code = 0919459966) 8.3 g/dL 6.3-8.2 H ALBUMIN (test code = 7548151495) 5.1 g/dL 3.5-5.0 H ALK PHOS (test code = 0477940156) 96 U/L 34-122 ALTv (test code = 1742-6) 47 U/L 5-35 H AST(SGOT) (test code = 1964125461) 46 U/L 13-40 H Lab Interpretation (test code = 48767-5) [facility]47[facility]59 Test Item Value Reference Range Interpretation Comments LIPASE (test code = 5947329034) 65 U/L 0-220 Lab Interpretation (test code = Normal 92619-8) [facility] 18:47:39 Test Item Value Reference Range Interpretation Comments MAGNESIUM (test code = 3738949060) 2.1 mg/dL 1.7-2.4 Lab Interpretation (test code = Normal 38956-4) [facility] (NA, K, CL, CO2, GLUCOSE, BUN, CREATININE, CA)2022-04-08 18:26:55 Test Item Value Reference Range Interpretation Comments NA (test code = 136 mmol/L 135-145 5622675655) K (test code = 3.5 mmol/L 3.5-5.0 0139798542) CL (test code = 103 mmol/L 98-108 2608461147) CO2 TOTAL (test code = 19 mmol/L 23-31 L 2591461337) AGAP (test code = 2-16 5959409022) BUN (test code = 10 mg/dL 7-23 8373270287) GLUCOSE (test code = 101 mg/dL 70-110 5160571514) CREATININE (test code = 0.54 mg/dL 0.50-1.04 7179620977) CALCIUM (test code = 9.7 mg/dL 8.6-10.6 8806786186) eGFR (test code = mL/min/1.73m2 1066795397) DUGLAS (test code = DUGLAS) Association of Glomerular Filtration Rate (GFR) and Staging of Kidney Disease* + --+ --+ ------+| GFR (mL/min/1.73 m2) ?| With Kidney Damage ?| ?Without Kidney Damage+ --------+ --------+ +| ?>90 ?| ?Stage one ?| ? Normal ?+ ---+ ---+ -------+| ?60-89 ?| ?Stage two ?| ? Decreased GFR ? + --+ --+ ------+| ?30-59 ?| ?Stage three ?| ? Stage three ? + --+ --+ ------+| ?15-29 ?| ?Stage four ? | ? Stage four ?+ ---+ ---+ -------+| ?<15 (or dialysis) ? ?| ?Stage five ? | ? Stage five ?+ ---+ ---+ -------+ *Each stage assumes the associated GFR level has been in effect for at least three months. ?Stages 1 to 5, with or without kidney disease, indicate chronic kidney disease. Notes: Determination of stages one and two (with eGFR >59mL/min/1.73 m2) requires estimation of kidney damage for at least three months as defined by structural or functional abnormalities of the kidney, manifested by either:Pathological abnormalities or Markers of kidney damage (including abnormalities in the composition of the blood or urine or abnormalities in imaging tests). Lab Interpretation Abnormal (test code = 19347-1) [facility] WITH [id number] 18:18:14 Test Item Value Reference Range Interpretation Comments WBC (test code = See_Comment [Automated 1590-2) message] The sy stem which generated this result transmitted reference range : 4.30 - 11.10 10*3/?L. The reference range was not used to interpret this result as normal/abnormal . RBC (test code = See_Comment [Automated 419-8) message] The sy stem which generated this result transmitted reference range : 3.93 - 5.25 10*6/?L. The reference range was not used to interpret this result as normal/abnormal . HGB (test code = 13.6 g/dL 11.6-15.0 718-7) HCT (test code = 38.5 % 35.7-45.2 4544-3) MCV (test code = 80.4 fL 80.6-95.5 L 787-2) MCH (test code = 28.4 pg 25.9-32.8 785-6) MCHC (test code = 35.3 g/dL 31.6-35.1 H 786-4) RDW-SD (test code = 38.8 fL 39.0-49.9 L 56176-1) RDW-CV (test code = 13.4 % 12.0-15.5 788-0) PLT (test code = See_Comment [Automated 777-3) message] The sy stem which generated this result transmitted reference range : 166 - 358 10*3/ ?L. The reference r bandar was not used to interpret this result as normal/abnormal . MPV (test code = 10.8 fL 9.5-12.9 43674-6) NRBC/100 WBC (test See_Comment [Automat ed code = 8716770849) message] The system which generated this result transmitted reference range : 0.0 - 10.0 /100 WBCs. The refer ence range was not u sed to interpret th is result as normal/abnormal . NRBC x10^3 (test code See_Comment [Auto mated = 3172943974) message] The s ystem which generated this result transmitted reference range : 10*3/?L. The reference range was not used to interpret this result as normal/abnormal . GRAN MAT (NEUT) % 74.4 % (test code = 770-8) IMM GRAN % (test code 0.30 % = 1501127348) LYMPH % (test code = 17.7 % 736-9) MONO % (test code = 6.9 % 5905-5) EOS % (test code = 0.3 % 713-8) BASO % (test code = 0.4 % 706-2) GRAN MAT x10^3(ANC) 7.89 10*3/uL 1.88-7.09 H (test code = 9613426135) IMM GRAN x10^3 (test 0.03 10*3/uL 0.00-0.06 code = 1597194003) LYMPH x10^3 (test code 1.88 10*3/uL 1.32-3.29 = 731-0) MONO x10^3 (test code 0.73 10*3/uL 0.33-0.92 = 742-7) EOS x10^3 (test code = 0.03 10*3/uL 0.03-0.39 711-2) BASO x10^3 (test code 0.04 10*3/uL 0.01-0.07 = 704-7) Lab Interpretation Abnormal (test code = 54542-1) [facility]"
[2022-04-16] MEDS ORDERED: MORPHINE 4 MG/ML SYR ONE (09:46)
[2022-04-16] MEDS ORDERED: NA CHLORIDE 0.9% 1,000 ML ONE (09:46)
[2022-04-16 09:51] LABS: Absolute Lymphocytes (CBC) 2.6 K/uL (0.7-4.9); Hematocrit 37.9 % (36.0-45.0); Lymphocytes % 30.8 % (15.3-44.8); MCV 82.2 fL (80-100); MPV 8.8 fL (7.6-11.3); RBC Red Blood Cell Count 4.61 M/uL (3.86-4.86)
[2022-04-16] MEDS ORDERED: PROMETHAZINE INJ 25 MG/ML AMP ONE (09:51)
[2022-04-16 10:06] LABS: Urine Blood 1+ (Negative); Urine Glucose Negative (Negative); Urine Protein 1+ (Negative); Urine Specific Gravity 1.025 (1.005-1.030)
[2022-04-16 10:08] LABS: Potassium 3.1 mmol/L (3.5-5.1)
[2022-04-16 10:13] LABS: Urine Bacteria <20 /HPF (<20); Urine Mucus 4+ /HPF (None Seen); Urine RBC 21-50 /HPF (None Seen)
[2022-04-16] MEDS ORDERED: POTASSIUM CL SA 10 MEQ TAB PO ONE (10:24)
[2022-04-16] MEDS ORDERED: NS KCL 20MEQ 1,000 ML IV ONE (10:24)
[2022-04-16] MEDS ORDERED: SIMETHICONE 80 MG TAB ONE (10:41)
--- NOTE | 2022-04-16 11:51 | RAD REPORT ---
EXAM DESCRIPTION: US - Transvaginal OB - 04/16/2022 11:25 am CLINICAL HISTORY: PAIN COMPARISON: Transvaginal OB dated 04/03/2022 FINDINGS: Single normal shaped gestational sac is seen in the fundal portion of the endometrial cavi ty. pole and yolk sac are identifiable. measurements yield an 8 week 3 day age. Calculate d ADAN is 11/23/2022. Heart rate is 169 BPM. The subchorionic hemorrhage seen on the April 03 study is more difficult to identify. No new or progressive intrauterine hemorrhage, mass or abnormal fluid collection. Left ovary is identified and shows normal blood flow within the stroma. No left adnexal abnormality. No blood or fluid in the cul de sac. Right ovary could not be identified due to bowel. No right adnex al mass seen. IMPRESSION: Single 8 week 3 day IUP with normal heart rate. Appropriate growth has occurred since April 03 study. Subchorionic hemorrhage seen on the prior study has not progressed. There are no new or progressive i ntrauterine findings. Normal left ovary and left adnexa. Nonvisualization of the right ovary due to bowel. No right adnexal mass.
--- NOTE | 2022-04-16 12:29 | ER ---
Nurse's Notes [facility] Name: Roselyn Mason Age: 26 yrs Sex: Female : 1995 Arrival Date: 04/16/2022 Time: 09:36 Bed 4 Private MD: Diagnosis: 8 weeks gestation of ;Constipation;Hypokalemia;Gas pain Presentation: 04/16 09:36 Chief complaint: EMS states: they were called for the patient complaining of low back ap3 pain that is reported to be "worse than labor pains". It is reported this is the patients 7th , with 4 living children. Patients LMP 02/16/2022. Patient reports her last BM to be 4 days ago. Patient also reports recent visit to another local facility for nausea/vomiting related to where she received prescriptions for Reglan and zofran. Coronavirus screen: At this time, the client does not indicate any symptoms associated with coronavirus-19. Ebola Screen: No symptoms or risks identified at this time. Initial Sepsis Screen: Does the patient meet any 2 criteria? HR > 90 bpm. Does the patient have a suspected source of infection? No. Patient's initial sepsis screen is negative. Risk Assessment: Do you want to hurt yourself or someone else? Patient reports no desire to harm self or others. Onset of symptoms was April 16, 2022. 09:36 Method Of Arrival: EMS: [facility] ap3 09:36 Acuity: TABITHA 3 ap3 Triage Assessment: 09:41 General: Appears uncomfortable, Behavior is crying, restless. Pain: Complains of pain ap3 in low back area Pain currently is 10 out of 10 on a pain scale. Neuro: Level of Consciousness is awake, alert, obeys commands, Oriented to person, place, time, situation. Cardiovascular: Patient's skin is warm and dry. Respiratory: Airway is patent Respiratory effort is even, unlabored, Respiratory pattern is regular, symmetrical. 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 - Social history:: Smoking status: Patient denies any tobacco usage or history of. Screenin:42 Abuse screen: Denies threats or abuse. Nutritional screening: No deficits noted. ap3 Tuberculosis screening: No symptoms or risk factors identified. Assessment: 12:26 Reassessment: Patient and/or family updated on plan of care and expected duration. Pain ap3 level reassessed. Patient is alert, oriented x 3, equal unlabored respirations, skin warm/dry/pink. Patient states symptoms have improved. 13:03 Reassessment: awaiting fluid completion prior to patient discharge. ap3 14:18 Reassessment: Patient appears in no apparent distress at this time. Patient and/or vg1 family updated on plan of care and expected duration. Pain level reassessed. Patient is alert, oriented x 3, equal unlabored respirations, skin warm/dry/pink. Patient denies pain at this time. Patient states feeling better. Vital Signs: 09:36 Temp 98.1(O); ap3 09:36 BP 154 / 95; Pulse 97; Resp 29; Pulse Ox 100% ; Weight 82.1 kg; Height 5 ft. 1 in. ap3 (154.94 cm); Pain 10/10; 10:22 BP 128 / 92; Pulse 76; Resp 21; Pulse Ox 100% ; ap3 10:53 BP 118 / 80; Pulse 76; Resp 19; Pulse Ox 100% on R/A; ap3 11:25 BP 124 / 84; Pulse 81; ap3 12:26 BP 112 / 68; Pulse 76; Pulse Ox 100% on R/A; ap3 13:30 BP 127 / 80; Pulse 77; Resp 15; Pulse Ox 100% on R/A; vg1 09:36 Body Mass Index 34.20 (82.10 kg, 154.94 cm) ap3 ED Course: 09:36 Patient arrived in ED. eb 09:36 Danielle Howe, GENE is Primary Nurse. ap3 09:36 Susi Horta FNP-C is PHCP. snw 09:36 Lit Cueto MD is Attending Physician. snw 09:40 Triage completed. ap3 09:41 Initial lab(s) drawn, by nj, sent to lab. Inserted saline lock: 20 gauge in right vg1 antecubital area, using aseptic technique. Blood collected. 09:42 Patient has correct armband on for positive identification. Placed in gown. Bed in low ap3 position. Call light in reach. Side rails up X2. lunchroom monitor on. Pulse ox on. NIBP on. Door closed. Noise minimized. 09:43 Arm band placed on right wrist. ap3 10:09 Straight cath inserted, using sterile technique, 16 Fr. Specimen obtained. Returned ap3 rhoda urine. Patient tolerated well. 11:27 US Transvaginal Ob In Process Unspecified. EDMS 14:18 No provider procedures requiring assistance completed. IV discontinued, intact, vg1 bleeding controlled, No redness/swelling at site. Pressure dressing applied. Administered Medications: 09:47 Drug: NS 0.9% 1000 ml Route: IV; Rate: 1 bolus; Site: right antecubital; aa5 13:04 Follow up: IV Status: Order to discontinue infusion; IV Intake: 400ml ap3 09:47 Drug: morphine 4 mg Route: IVP; Infused Over: 4 mins; Site: right antecubital; aa5 10:08 Follow up: Response: No adverse reaction; Pain is decreased ap3 10:07 Drug: Phenergan (promethazine) 25 mg Route: IM; Site: right deltoid; ap3 13:03 Follow up: Response: No adverse reaction; Nausea is decreased ap3 10:29 Drug: NS 0.9% with KCl 20 mEq/L 1000 ml Route: IV; Rate: bolus; Site: right antecubital;ap3 14:17 Follow up: IV Status: Completed infusion; IV Intake: 1000ml vg1 10:29 Drug: Potassium Chloride 40 mEq Route: PO; ap3 13:04 Follow up: Response: No adverse reaction ap3 10:41 Drug: Simethicone 240 mg Route: PO; vg1 13:04 Follow up: Response: No adverse reaction ap3 Medication: 10:09 VIS not applicable for this client. ap3 Intake: 13:04 IV: 400ml; Total: 400ml. ap3 14:17 IV: 1000ml; Total: 1400ml. vg1 Outcome: 12:28 Discharge ordered by MD. simons 14:17 Discharged to home ambulatory, with family. vg1 14:17 Condition: good 14:17 Discharge instructions given to patient, Instructed on discharge instructions, follow up and referral plans. medication usage, Demonstrated understanding of instructions, follow-up care, medications, Prescriptions given X 1. 14:19 Patient left the ED. vg1 Signatures: Dispatcher [employer] EDSusi Garber, ADDISON EMERGENCY MEDICINE SPECIALIST-Marina Echavarria, RN RN aa5 Danielle Howe RN RN ap3 Shea Barrios Victoria RN RN vg1 Corrections: (The following items were deleted from the chart) 10:22 09:36 BP 154 / 95; Pulse 97bpm; Resp 19bpm; Pulse Ox 100%; 82.1 kg; Height 5 ft. 1 in.; ap3 BMI: 34.2; Pain 10/; ap3
--- NOTE | 2022-04-16 12:29 | EDPHYS ---
Physician Documentation [facility] Name: Roselyn Mason Age: 26 yrs Sex: Female : 1995 Arrival Date: 04/16/2022 Time: 09:36 Bed 4 Private MD: ED Physician Lit Cueto HPI: 04/16 10:10 This 26 yrs old Female presents to ER via EMS with complaints of back pain. snw 10:10 The patient presents with pain that is acute, with no known mechanism of injury, and snw decreased range of motion, and spasm, tightness. The symptoms are located in the low back. Onset: The symptoms/episode began/occurred gradually, 4 day(s) ago, and became worse this morning. The pain radiates to the right lower quadrant and left lower quadrant. Associated signs and symptoms: Pertinent positives: nausea. The problem was sustained pt states she was recently in the hospital for Hyperemesis gravidarum and the became constipated. Pt states she has had back pain x 4 days but this am the pain is unbearable, worse than labor. Pt denies vaginal bleeding. Recent US 04/03/22 shows intrauterine . Severity of symptoms: At their worst the symptoms were moderate. It is unknown whether or not the patient has had similar symptoms in the past. Pt hyperventilating. 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 - Social history:: Smoking status: Patient denies any tobacco usage or history of. ROS: 10:13 Constitutional: Negative for fever, chills, and weight loss, Eyes: Negative for injury, snw pain, redness, and discharge, ENT: Negative for injury, pain, and discharge, Neck: Negative for injury, pain, and swelling, Cardiovascular: Negative for chest pain, palpitations, and edema, Respiratory: Negative for shortness of breath, cough, wheezing, and pleuritic chest pain, Abdomen/GI: Negative for abdominal pain, nausea, vomiting, diarrhea, and constipation, : Negative for injury, bleeding, discharge, and swelling, MS/Extremity: Negative for injury and deformity, Skin: Negative for injury, rash, and discoloration, Neuro: Negative for headache, weakness, numbness, tingling, and seizure, Psych: Negative for depression, anxiety, suicide ideation, homicidal ideation, and hallucinations. 10:13 Back: Positive for pain at rest, pain with movement, of the low back area. Exam: 10:15 Head/Face: Normocephalic, atraumatic. Eyes: Pupils equal round and reactive to light, snw extra-ocular motions intact. Lids and lashes normal. Conjunctiva and sclera are non-icteric and not injected. Cornea within normal limits. Periorbital areas with no swelling, redness, or edema. ENT: Nares patent. No nasal discharge, no septal abnormalities noted. Tympanic membranes are normal and external auditory canals are clear. Oropharynx with no redness, swelling, or masses, exudates, or evidence of obstruction, uvula midline. Mucous membranes moist. Neck: Trachea midline, no thyromegaly or masses palpated, and no cervical lymphadenopathy. Supple, full range of motion without nuchal rigidity, or vertebral point tenderness. No Meningismus. Chest/axilla: Normal chest wall appearance and motion. Nontender with no deformity. No lesions are appreciated. Cardiovascular: Regular rate and rhythm with a normal S1 and S2. No gallops, murmurs, or rubs. Normal PMI, no JVD. No pulse deficits. Respiratory: Lungs have equal breath sounds bilaterally, clear to auscultation and percussion. No rales, rhonchi or wheezes noted. No increased work of breathing, no retractions or nasal flaring. Abdomen/GI: Soft, non-tender, with normal bowel sounds. No distension or tympany. No guarding or rebound. No evidence of tenderness throughout. Skin: Warm, dry with normal turgor. Normal color with no rashes, no lesions, and no evidence of cellulitis. MS/ Extremity: Pulses equal, no cyanosis. Neurovascular intact. Full, normal range of motion. Neuro: Awake and alert, GCS 15, oriented to person, place, time, and situation. Cranial nerves II-XII grossly intact. Motor strength 5/5 in all extremities. Sensory grossly intact. Cerebellar exam normal. Normal gait. 10:15 Constitutional: The patient appears alert, awake, anxious, hyperventilating 10:15 Back: pain, that is moderate, ROM is painful, with extension, normal spinal alignment noted, CVA tenderness, is absent. 10:15 Neuro: Orientation: is normal, Mentation: is normal, Memory: is normal. 10:15 Psych: Behavior/mood is pleasant, cooperative, anxious, hyperventilating. Affect is animated. Vital Signs: 09:36 Temp 98.1(O); ap3 09:36 BP 154 / 95; Pulse 97; Resp 29; Pulse Ox 100% ; Weight 82.1 kg; Height 5 ft. 1 in. ap3 (154.94 cm); Pain 10/10; 10:22 BP 128 / 92; Pulse 76; Resp 21; Pulse Ox 100% ; ap3 10:53 BP 118 / 80; Pulse 76; Resp 19; Pulse Ox 100% on R/A; ap3 11:25 BP 124 / 84; Pulse 81; ap3 12:26 BP 112 / 68; Pulse 76; Pulse Ox 100% on R/A; ap3 13:30 BP 127 / 80; Pulse 77; Resp 15; Pulse Ox 100% on R/A; vg1 09:36 Body Mass Index 34.20 (82.10 kg, 154.94 cm) ap3 MDM: 09:37 Patient medically screened. snw 12:35 Data reviewed: vital signs, nurses notes, lab test result(s), radiologic studies. snw Counseling: I had a detailed discussion with the patient and/or guardian regarding: the historical points, exam findings, and any diagnostic results supporting the discharge/admit diagnosis, lab results, radiology results, the need for outpatient follow up, to return to the emergency department if symptoms worsen or persist or if there are any questions or concerns that arise at home. Response to treatment: the patient's symptoms have markedly improved after treatment. Special discussion: Based on the history and exam findings, there is no indication for further emergent testing or inpatient evaluation. I discussed with the patient/guardian the need to see the OB Gyne specialist for further evaluation of the symptoms. 04/16 09:39 Order name: Abo/rh Typing; Complete Time: 10:37 snw 04/16 09:39 Order name: Basic Metabolic Panel; Complete Time: 10:22 snw 04/16 09:39 Order name: CBC with Diff; Complete Time: 09:58 snw 04/16 09:39 Order name: Quantitative Hcg; Complete Time: 10:22 snw 04/16 09:39 Order name: Urine Microscopic Only; Complete Time: 10:17 snw 04/16 09:39 Order name: Urine Culture snw 04/16 09:39 Order name: US Transvaginal Ob; Complete Time: 11:53 snw 04/16 10:06 Order name: Urine Dipstick-Ancillary; Complete Time: 10:09 EDMS 04/16 09:39 Order name: IV Saline Lock; Complete Time: 09:41 snw 04/16 09:39 Order name: Labs collected and sent; Complete Time: 09:41 snw 04/16 09:39 Order name: NPO; Complete Time: 09:41 snw 04/16 09:39 Order name: Cath; Complete Time: 10:07 snw Administered Medications: 09:47 Drug: NS 0.9% 1000 ml Route: IV; Rate: 1 bolus; Site: right antecubital; aa5 13:04 Follow up: IV Status: Order to discontinue infusion; IV Intake: 400ml ap3 09:47 Drug: morphine 4 mg Route: IVP; Infused Over: 4 mins; Site: right antecubital; aa5 10:08 Follow up: Response: No adverse reaction; Pain is decreased ap3 10:07 Drug: Phenergan (promethazine) 25 mg Route: IM; Site: right deltoid; ap3 13:03 Follow up: Response: No adverse reaction; Nausea is decreased ap3 10:29 Drug: NS 0.9% with KCl 20 mEq/L 1000 ml Route: IV; Rate: bolus; Site: right antecubital;ap3 14:17 Follow up: IV Status: Completed infusion; IV Intake: 1000ml vg1 10:29 Drug: Potassium Chloride 40 mEq Route: PO; ap3 13:04 Follow up: Response: No adverse reaction ap3 10:41 Drug: Simethicone 240 mg Route: PO; vg1 13:04 Follow up: Response: No adverse reaction ap3 Disposition: 16:37 Co-signature as Attending Physician, Lit Cueto MD I reviewed the patient's care rt provided by the Advanced Practice Provider and agree with the diagnosis and treatment plan. Disposition Summary: 04/16/22 12:28 Discharge Ordered Location: Home snw Condition: Stable snw Diagnosis - 8 weeks gestation of snw - Constipation snw - Hypokalemia snw - Gas pain snw Followup: snw - With: Private Physician - When: 2 - 3 days - Reason: Recheck today's complaints, Continuance of care, Re-evaluation by your physician Followup: snw - With: Emergency Department - When: As needed - Reason: Worsening of condition Discharge Instructions: - Discharge Summary Sheet snw - Dehydration, Adult snw - High-Fiber Diet snw - Potassium Content of Foods snw - Back Pain in snw - Gas and Gas Pains, Pediatric snw - Hypokalemia snw - Rehydration, Adult snw Forms: - Medication Reconciliation Form snw - Thank You Letter snw - Antibiotic Education snw - Prescription Opioid Use snw Prescriptions: - simethicone - take 240 milligram by ORAL route 1-3 times daily; 1 box; Refills: 0, Product snw Selection Permitted Signatures: Dispatcher [employer] EDMS Susi Horta, PATIENT PARTNER-C PATIENT PARTNER-Csnw Marina Chavez RN RN aa5 Danielle Howe RN RN ap3 Gypsy Burden RN RN vg1 Lit Cueto MD MD rt
[2022-04-16 15:00] VITALS: TEMP 98.1; O2SAT 100
[2022-04-16 15:14] VITALS: BP 127/80
== END 2022-04-16 14:19 | disposition home or self-care (01) ==
LOC: ER 09:35
DX: O26.891 Other specified pregnancy related conditions, first trimester (principal); K59.00 Constipation, unspecified; O99.281 Endocrine, nutritional and metabolic diseases complicating pregnancy, first trimester; E87.6 Hypokalemia; Z3A.08 8 weeks gestation of pregnancy
CPT/HCPCS: 96361; 87088; 85025; 87086; 80048; 36415; 86900; 86901; 84702; 76817; 51702; 96372; 96374; 99285; J2550; J7030; J3480; 81003; 81015

== ENCOUNTER → 2023-04-21 | Emergency (ER) | payer OTHER ==
[~2023-04-21] MED LIST: FAMOTIDINE 20 MG/2 ML VIAL IV ONE; METOCLOPRAMIDE 10 MG/2mL INJ ONE; NA CHLORIDE 0.9% 1,000 ML ONE; ONDANSETRON 4 MG/2 ML VIAL ONE
--- OUTSIDE RECORDS SUMMARY | 2023-04-21 16:02 | XMS REPORT | Continuity of Care Document ---
Author Name Unknown Address [address] [facility] [address] [place] [address] [facility]connect Address [address] [facility] [address] [place] [address] Care Team Providers Care Ventilator Specialist Name Role Phone Pcp, Patient Does Not Have A Primary Care Physic rylan [email or web address] Attending Clinician RAYRAY Odell Attending Clinician RAYRAY Odell Attending Clinician RAMONA Chau Attending Clinician Unavailable Jhonny CARMONA, Ramona Mckeon Attending Clinician [phone] Ruby Cleveland DO S Attending Clinician [phone] Ever Hines MD S Attending Clinician + [phone] Doctor Unassigned, [place] Attending Clinician U kevinailARLEEN Mendoza Attending Clinician ARLEEN Lemon Attending Clinician ELENI Bassett Attending Clinician Unav ailable Ultrasound, Ang-Mfhenna Attending Clinician Caleb Kelley MD, Eleni Santillan Attending Clinician + Lab, Ang - Db Attending Clinician Josep Akhtar RN, Jayson Attending Clinician Unavail le Ultrasound, Adc Mfm Attending Clinician Caleb Hyde MDIbis Attending Clinician + LOVE IBIS HYDE Attending Clinician ANOOP Sweet Attending Clinician Unavailable ANOOP PEARSON Attending Clinician Unavailable Tiffanie Moreau NP Attending Clinician [phone] RAMONA THOMPSON Admitting Clinician Unavailable [email or web address]_S Admitting Clinician Unavailgrayson Thompson MD, Ramona Mckeon Admitting Clinician [phone] ARLEEN ABBOTT Admitting Clinician ANOOP Dewitt Admitting Clinician Unavailable Payers Payer Name Policy Type Policy Number Effective Date Expirati on Date Source [employer] [facility] [id number] 2022 00:00:00 Problems Condition Name Condition Details Condition Category Status Onset Date Resolution Date Last Treatment Date Treating Clinician Comments Source Encounter for routine follow-up Encounter for routine follow-up Disease Active 11-11 00:00: 00 [facility] Visit for wound check Visit for wound check Disease Active 11-11 00:00: 00 [facility] Gestationa l hypertensi on, third trimester Gestationa l hypertensi on, third trimester Disease Active 11-02 00:00: 00 [facility] Liveborn , of lion , born in hospital by delivery Liveborn infant, of lion , born in hospital by delivery Disease Active 11-02 00:00: 00 [facility] Decreased movements in third trimester Decreased movements in third trimester Disease Active 11-01 00:00: 00 [facility] Non-reassu ring heart rate or rhythm affecting management of mother Non-reassu ring heart rate or rhythm affecting management of mother Disease Active 11-01 00:00: 00 [facility] Threatened labor, third trimester Threatened labor, third trimester Disease Active 10-27 00:00: 00 [facility] Threatened labor, third trimester Threatened labor, third trimester Disease Active 10-27 00:00: 00 [facility] Irregular uterine contractio ns Irregular uterine contractio ns Disease Active 8-04 00:00: 00 [facility] Non-reassu ring heart tones complicati ng , antepartum Non-reassu ring heart tones complicati ng , antepartum Disease Active 7-18 00:00: 00 [facility] Anemia, antepartum , third trimester Anemia, antepartum , third trimester Disease Active 718 00:00: 00 [facility] Non-stress test reactive on surveillan ce Non-stress test reactive on surveillan ce Disease Active 718 00:00: 00 [facility] Traumatic injury during , third trimester Traumatic injury during , third trimester Disease Active 718 00:00: 00 [facility] Fall Fall Disease Active 718 00:00: 00 [facility] Maternal care for decelerati ons during Maternal care for decelerati ons during Disease Active 718 00:00: 00 [facility] Anemia, antepartum , third trimester Anemia, antepartum , third trimester Disease Active 718 00:00: 00 [facility] Generalize d anxiety disorder Generalize d anxiety disorder Disease Active 3-31 00:00: 00 [facility] Constipati on during , antepartum Constipati on during , antepartum Disease Active 2-26 00:00: 00 [facility] Elevated blood pressure reading without diagnosis of hypertensi on Elevated blood pressure reading without diagnosis of hypertensi on Disease Active 2-26 00:00: 00 [facility] Constipati on during , antepartum Constipati on during , antepartum Disease Active 2-26 00:00: 00 [facility] Obesity in Obesity in Disease Active 2-03 00:00: 00 [facility] Obesity (BMI 30-39.9) Obesity (BMI 30-39.9) Disease Active 2-03 00:00: 00 [facility] Pelvic cramping in antepartum period Pelvic cramping in antepartum period Disease Active 2-03 00:00: 00 [facility] Constipati on, unspecifie d constipati on type Constipati on, unspecifie d constipati on type Disease Active 2-03 00:00: 00 [facility] 7 weeks gestation of 7 weeks gestation of Disease Active 1-19 00:00: 00 [facility] 33 weeks gestation of 33 weeks gestation of Disease Active 411 00:00: 00 [facility] 36 weeks gestation of 36 weeks gestation of Disease Active 06-29 00:00: 00 [facility] Nausea and vomiting in Nausea and vomiting in Disease Active 2016-03 00:00: 00 [facility] Nausea and vomiting during prior to 22 weeks gestation Nausea and vomiting during prior to 22 weeks gestation Disease Active 2016-03 00:00: 00 [facility] 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 Will need cytology in 12 months [facility] Former tobacco use Former tobacco use Disease Active 12-02 00:00: 00 [facility] Overweight (BMI 25.0-29.9) Overweight (BMI 25.0-29.9) Disease Active 12-02 00:00: 00 [facility] with history of miscarriag e, first trimester with history of miscarriag e, first trimester Disease Active 12-02 00:00: 00 [facility] High-risk in third trimester High-risk in third trimester Disease Active 12-02 00:00: 00 [facility] Allergies, Adverse Reactions, Alerts Allergy Name Allergy Type Status Severity Reaction(s) Onset Date Inactive Date Treating Clinician Comments Source NO KNOWN ALLERGIE S Drug Class Active [facility] Social History Social Habit Start Date Stop Date Quantity Comments Source ASSERTION 2022-03-02 00:00:00 [facility] Gender identity [facility] Sexual orientation U [facility] History of Social function 2022-11-11 00:00:00 2022-11-11 00:00:00 [facility] Exposure to SARS-CoV-2 (event) 2022-07-17 00:00:00 2022-07-27 10:36:00 Not sure [facility] Alcohol intake 2022-07-23 00:00:00 2022-07-23 00:00:00 Lifetime non-drinker (finding) [facility] Tobacco use and exposure 2022-04-23 00:00:00 2022-04-23 00:00:00 Smokeless tobacco non-user [facility] History of tobacco use 2014-12-02 00:00:00 2016-11-25 00:00:00 Cigarette Smoker [facility] Sex Assigned At 1995 00:00:00 1995 00:00:00 [facility] Smoking Status Start Date Stop Date Source Ex-smoker 2022-04-23 00:00:00 2022-04-23 00:00:00 [facility] Medications Ordered Medication Name Filled Medication Name Start Date Stop Date Current Medication? Ordering Clinician Indication Dosage Frequency Signature (SIG) Comments Components Source ibuprofen 800 mg tablet 11-11 00:00: 00 Yes [id number] 800mg Take 1 tablet by mouth every 6 (six) hours as needed for Pain (scale 4-6). [facility] ibuprofen (IBU) tablet 600 mg 11-04 17:00: 00 Yes 600mg 600 mg, Oral, Q6H ABX, First dose on Jenn 11/04/22 at 1200, Until Discontinu ed, Routine [facility] ibuprofen (IBU) tablet 600 mg 11-04 17:00: 00 Yes 600mg 600 mg, Oral, Q6H ABX, First dose on Jenn 11/04/22 at 1200, Until Discontinu ed, Routine [facility] hydrocortis one 1 % cream 11-04 13:00: 00 Yes Topical, BID, First dose on Jenn 11/04/22 at 0800, Until Discontinu ed, Routine [facility] HYDROcodone -acetaminop hen (NORCO) 10-325 mg tablet 1 tablet 11-04 07:40: 08 Yes 1{tbl} 1 tablet, Oral, Q6HPRN, Starting on Tue11/04/22 at 0240, Until Discontinu ed, Routine, Pain (scale 7-10) [facility] HYDROcodone -acetaminop hen (NORCO 5) 5-325 mg tablet 1 tablet 11-04 07:39: 57 Yes 1{tbl} 1 tablet, Oral, Q6HPRN, Starting on Tue11/04/22 at 0239, Until Discontinu ed, Routine, Pain (scale 4-6), Alternate with Ibuprofen [facility] ferrous sulfate tablet 325 mg 11-04 01:00: 00 Yes 325mg 325 mg, Oral, BID, First dose on Tue11/03/22 at 1999, Until Discontinu ed, Routine [facility] ferrous sulfate tablet 325 mg 11-04 01:00: 00 Yes 325mg 325 mg, Oral, BID, First dose on Tue11/03/22 at 1999, Until Discontinu ed, Routine [facility] hydrocortis one 1 % cream 11-04 00:00: 00 Yes [id number] Apply to area(s) 2 (two) times daily. [facility] hydrocortis one 1 % cream 11-04 00:00: 00 Yes [id number] Apply to area(s) 2 (two) times daily. [facility] hydrocortis one 1 % cream 11-04 00:00: 00 Yes [id number] Apply to area(s) 2 (two) times daily. [facility] ketorolac (TORADOL) injection 30 mg 11-03 17:00: 00 11-04 16:59 :00 No 30mg 30 mg, Slow IV Push, Q6H ABX, 4 doses, First dose on Tue11/03/22 at 1200, Last dose on Tue11/04/22 at 0600, Routine [facility] ketorolac (TORADOL) injection 30 mg 11-03 17:00: 00 11-04 11:17 :00 No 30mg 30 mg, Slow IV Push, Q6H ABX, 4 doses, First dose on Tue11/03/22 at 1200, Last dose on Tue11/04/22 at 0600, Routine [facility] sennosides (SENOKOT) tablet 8.6 mg 11-03 14:00: 00 Yes 8.6mg 8.6 mg, Oral, DAILY, First dose on Tue11/03/22 at 0900, Until Discontinu ed, Routine [facility] sennosides (SENOKOT) tablet 8.6 mg 11-03 14:00: 00 Yes 8.6mg 8.6 mg, Oral, DAILY, First dose on Tue11/03/22 at 0900, Until Discontinu ed, Routine [facility] gabapentin (NEURONTIN) capsule 300 mg 11-03 13:00: 00 Yes 300mg 300 mg, Oral, TID, First dose on Tue11/03/22 at 0800, Until Discontinu ed, Routine [facility] gabapentin (NEURONTIN) capsule 300 mg 11-03 13:00: 00 Yes 300mg 300 mg, Oral, TID, First dose on Tue11/03/22 at 0800, Until Discontinu ed, Routine [facility] acetaminoph en (TYLENOL) tablet 650 mg 11-03 11:00: 00 Yes 650mg 650 mg, Oral, Q6H ABX, First dose on Tue11/03/22 at 0600, Until Discontinu ed, Routine [facility] acetaminoph en (TYLENOL) tablet 650 mg 11-03 11:00: 00 Yes 650mg 650 mg, Oral, Q6H ABX, First dose on Tue11/03/22 at 0600, Until Discontinu ed, Routine [facility] ceFAZolin (ANCEF) 2,000 mg in NaCl 0.9% (NS) 100 mL MINI-BAG 11-03 07:00: 00 11-03 08:16 :00 No 2000mg 2,000 mg, IV Piggyback, ONCE, 1 dose, On Tue11/03/22 at 0200, Administer over 30 Minutes, 100 mL
Reas on for Anti-Infec tive: Surgical Prophylaxi s
Surgi carlitos Prophylaxi s: TAPE STRINGER
Duration of therapy: within 24 hours of surgery [facility] acetaminoph en ADULT (OFIRMEV) injection 1,000 mg 11-03 06:00: 00 11-03 07:21 :00 No 1000mg 1,000 mg, IV Infusion, at 400 mL/hr Administer over 15 Minutes, Q6H, 1 dose, First dose on Tue11/03/22 at 0100, Routine
Indicatio n: Perioperat lalo Patient [facility] HYDROcodone -acetaminop hen (NORCO 5) 5-325 mg tablet 1 tablet 11-03 05:00: 00 Yes 1{tbl} 1 tablet, Oral, Q6HPRN, Starting on Tue11/03/22 at 0000, Until Discontinu ed, Routine, Pain (scale 7-10), Alternate with Ibuprofen [facility] rho(D) immune globulin (RHOGAM) syringe 300 mcg 11-03 03:10: 11 Yes 300ug 300 mcg, Intramuscu lar, ONCE, For 1 dose, Conditiona l, Routine [facility] rho(D) immune globulin (RHOGAM) syringe 300 mcg 11-03 03:10: 11 Yes 300ug 300 mcg, Intramuscu lar, ONCE, For 1 dose, Conditiona l, Routine [facility] diphenhydrA MINE (BENADRYL) injection 25 mg 11-03 03:09: 36 Yes 25mg 25 mg, Slow IV Push, Q6HPRN, Starting on Tue11/02/22 at 2209, Until Discontinu ed, Routine, Itching [facility] diphenhydrA MINE (BENADRYL) tablet 25 mg 11-03 03:09: 36 Yes 25mg 25 mg, Oral, Q6HPRN, Starting on Tue11/02/22 at 2208, Until Discontinu ed, Routine, Sleep, Itching [facility] ondansetron (ZOFRAN (PF)) injection 4 mg 11-03 03:09: 36 Yes 4mg 4 mg, Slow IV Push, Q8HPRN, Starting on Tue11/02/22 at 2208, Until Discontinu ed, Routine, Nausea and Vomiting (N/V) [facility] bisacodyL (DULCOLAX) suppository 10 mg 11-03 03:09: 36 Yes 10mg 10 mg, Rectal, QDAILYPRN, Starting on Tue11/02/22 at 2208, Until Discontinu ed, Routine, Constipati on [facility] simethicone (GAS RELIEF (SIMETHICON E)) chewable tablet 160 mg 11-03 03:09: 36 Yes 160mg 160 mg, Oral, PC+HSPRN, Starting on Tue11/02/22 at 2208, Until Discontinu ed, Routine, Gas [facility] docusate (COLACE) capsule 200 mg 11-03 03:09: 36 Yes 200mg 200 mg, Oral, QDAILYPRN, Starting on Tue11/02/22 at 2208, Until Discontinu ed, Routine, Constipati on [facility] magnesium hydroxide (MILK OF MAGNESIA) 400 mg/5 mL suspension 30 mL 11-03 03:09: 36 Yes 30mL 30 mL, Oral, QDAILYPRN, Starting on Tue11/02/22 at 2208, Until Discontinu ed, Routine, Constipati on [facility] lactated ringers IV infusion 1,000 mL 11-03 03:09: 36 Yes 1000mL at 125 mL/hr, 1,000 mL, IV Infusion, PRN, 1 dose, Starting on Tue11/02/22 at 2208, Until Discontinu ed, Routine [facility] diphenhydrA MINE (BENADRYL) injection 25 mg 11-03 03:09: 36 Yes 25mg 25 mg, Slow IV Push, Q6HPRN, Starting on Tue11/02/22 at 2208, Until Discontinu ed, Routine, Itching [facility] diphenhydrA MINE (BENADRYL) tablet 25 mg 11-03 03:09: 36 Yes 25mg 25 mg, Oral, Q6HPRN, Starting on Tue11/02/22 at 2208, Until Discontinu ed, Routine, Sleep, Itching [facility] ondansetron (ZOFRAN (PF)) injection 4 mg 11-03 03:09: 36 Yes 4mg 4 mg, Slow IV Push, Q8HPRN, Starting on Tue11/02/22 at 2208, Until Discontinu ed, Routine, Nausea and Vomiting (N/V) [facility] bisacodyL (DULCOLAX) suppository 10 mg 11-03 03:09: 36 Yes 10mg 10 mg, Rectal, QDAILYPRN, Starting on Tue11/02/22 at 2208, Until Discontinu ed, Routine, Constipati on [facility] simethicone (GAS RELIEF (SIMETHICON E)) chewable tablet 160 mg 11-03 03:09: 36 Yes 160mg 160 mg, Oral, PC+HSPRN, Starting on Tue11/02/22 at 2208, Until Discontinu ed, Routine, Gas [facility] docusate (COLACE) capsule 200 mg 11-03 03:09: 36 Yes 200mg 200 mg, Oral, QDAILYPRN, Starting on Tue11/02/22 at 2208, Until Discontinu ed, Routine, Constipati on [facility] magnesium hydroxide (MILK OF MAGNESIA) 400 mg/5 mL suspension 30 mL 11-03 03:09: 36 Yes 30mL 30 mL, Oral, QDAILYPRN, Starting on Tue11/02/22 at 2208, Until Discontinu ed, Routine, Constipati on [facility] lactated ringers IV infusion 1,000 mL 11-03 03:09: 36 Yes 1000mL at 125 mL/hr, 1,000 mL, IV Infusion, PRN, 1 dose, Starting on Tue11/02/22 at 2209, Until Discontinu ed, Routine [facility] morpHINE 30 mg/30 mL (fixed dose) STUD MASTER/MISTRESS injection 11-03 01:15: 00 11-04 01:14 :00 No Patient Bolus Dose: 1 mg
Lock out Interval: 6 Minutes
Basal Rate: 1 mg/hr
F our Hour Dose Limit: 32 mg
Intr avenous, 30 mL, CONTINUOUS , Starting on Tue11/02/22 at 2014, Until Tue11/03/22 at 2013 [facility] morpHINE 30 mg/30 mL (fixed dose) STUD MASTER/MISTRESS injection 11-03 01:15: 00 11-04 01:14 :00 No Patient Bolus Dose: 1 mg
Lock out Interval: 6 Minutes
Basal Rate: 1 mg/hr
F our Hour Dose Limit: 32 mg
Intr avenous, 30 mL, CONTINUOUS , Starting on Tue11/02/22 at 2014, Until Tue11/03/22 at 2013 [facility] docusate (COLACE) capsule 100 mg 11-03 00:30: 00 Yes 100mg 100 mg, Oral, DAILY, First dose on Tue11/02/22 at 1930, Until Discontinu ed, Routine [facility] docusate (COLACE) capsule 100 mg 11-03 00:30: 00 Yes 100mg 100 mg, Oral, DAILY, First dose on Tue11/02/22 at 1930, Until Discontinu ed, Routine [facility] ondansetron (ZOFRAN (PF)) injection 4 mg 11-03 00:14: 24 Yes 4mg 4 mg, Slow IV Push, Q6HPRN, Starting on Tue11/02/22 at 1914, Until Discontinu ed, KATE, Nausea and Vomiting (N/V) [facility] ondansetron (ZOFRAN (PF)) injection 4 mg 2022-0 11-03 00:14: 24 Yes 4mg 4 mg, Slow IV Push, Q6HPRN, Starting on Tue11/02/22 at 1914, Until Discontinu ed, KATE, Nausea and Vomiting (N/V) [facility] naloxone (NARCAN) injection 0.1 mg 11-03 00:13: 58 Yes .1mg 0.1 mg, Slow IV Push, SEE-INSTRU CTIONS, Starting on Tue11/02/22 at 1913, Until Discontinu ed, Routine [facility] morpHINE 2 mg/mL LOAD & RESCUE INJECTION SYRG 11-03 00:13: 58 Yes Slow IV Push, Routine [facility] naloxone (NARCAN) injection 0.1 mg 11-03 00:13: 58 Yes .1mg 0.1 mg, Slow IV Push, SEE-INSTRU CTIONS, Starting on Tue11/02/22 at 1913, Until Discontinu ed, Routine [facility] mupirocin (BACTROBAN OINT) 2 % skin ointment 11-03 00:09: 00 Yes Intra-op [facility] mupirocin (BACTROBAN OINT) 2 % skin ointment 11-03 00:09: 00 Yes Intra-op [facility] naloxone (NARCAN) injection 0.2 mg 11-03 00:07: 44 Yes .2mg 0.2 mg, Intramuscu lar, Q3HPRN, Starting on Tue11/02/22 at 1907, Until Discontinu ed, Routine, Itching [facility] naloxone (NARCAN) injection 0.2 mg 11-03 00:07: 44 Yes .2mg 0.2 mg, Intramuscu lar, Q3HPRN, Starting on Tue11/02/22 at 1907, Until Discontinu ed, Routine, Itching [facility] naloxone (NARCAN) injection 0.4 mg 11-03 00:07: 44 11-04 15:02 :22 No .4mg 0.4 mg, Slow IV Push, PRN - SEE INSTRUCTIO NS, Starting on Tue11/02/22 at 1907, Until Jenn 11/04/22 at 1002, Routine, Analgesia Recovery [facility] acetaminoph en 325 mg tablet 2022-0 11-03 00:00: 00 Yes [id number] 650mg Take 2 tablets by mouth every 6 (six) hours as needed for Pain (scale 1-3) or Pain (scale 4-6). [facility] vitamin w/FA tablet 2022-0 11-03 00:00: 00 Yes [id number] 1{tbl} Take 1 tablet by mouth in the morning. [facility] docusate 100 mg capsule 2022-0 11-03 00:00: 00 Yes [id number] 200mg Take 2 capsules by mouth once daily as needed for Constipati on. [facility] ferrous sulfate 325 mg (65 mg iron) tablet 11-03 00:00: 00 Yes [id number] 325mg Take 1 tablet by mouth in the morning and 1 tablet in the evening. [facility] ibuprofen 600 mg tablet 11-03 00:00: 00 Yes [id number] 600mg Take 1 tablet by mouth every 6 (six) hours as needed (Pain). Take with food or milk. [facility] acetaminoph en 325 mg tablet 2022-0 11-03 00:00: 00 Yes [id number] 650mg Take 2 tablets by mouth every 6 (six) hours as needed for Pain (scale 1-3) or Pain (scale 4-6). [facility] vitamin w/FA tablet 2022-0 11-03 00:00: 00 Yes [id number] 1{tbl} Take 1 tablet by mouth in the morning. [facility] docusate 100 mg capsule 2022-0 11-03 00:00: 00 Yes [id number] 200mg Take 2 capsules by mouth once daily as needed for Constipati on. [facility] ferrous sulfate 325 mg (65 mg iron) tablet 2022-0 11-03 00:00: 00 Yes [id number] 325mg Take 1 tablet by mouth in the morning and 1 tablet in the evening. [facility] ibuprofen 600 mg tablet 2022-0 11-03 00:00: 00 Yes [id number] 600mg Take 1 tablet by mouth every 6 (six) hours as needed (Pain). Take with food or milk. [facility] acetaminoph en 325 mg tablet 2022-0 11-03 00:00: 00 Yes [id number] 650mg Take 2 tablets by mouth every 6 (six) hours as needed for Pain (scale 1-3) or Pain (scale 4-6). [facility] vitamin w/FA tablet 2022-0 11-03 00:00: 00 Yes [id number] 1{tbl} Take 1 tablet by mouth in the morning. [facility] docusate 100 mg capsule 11-03 00:00: 00 Yes [id number] 200mg Take 2 capsules by mouth once daily as needed for Constipati on. [facility] ferrous sulfate 325 mg (65 mg iron) tablet 11-03 00:00: 00 Yes [id number] 325mg Take 1 tablet by mouth in the morning and 1 tablet in the evening. [facility] ibuprofen 600 mg tablet 11-03 00:00: 00 Yes [id number] 600mg Take 1 tablet by mouth every 6 (six) hours as needed (Pain). Take with food or milk. [facility] acetaminoph en 325 mg tablet 11-03 00:00: 00 Yes [id number] 650mg Take 2 tablets by mouth every 6 (six) hours as needed for Pain (scale 1-3) or Pain (scale 4-6). [facility] vitamin w/FA tablet 11-03 00:00: 00 Yes [id number] 1{tbl} Take 1 tablet by mouth in the morning. [facility] docusate 100 mg capsule 0 11-03 00:00: 00 Yes [id number] 200mg Take 2 capsules by mouth once daily as needed for Constipati on. [facility] ferrous sulfate 325 mg (65 mg iron) tablet 0 11-03 00:00: 00 Yes [id number] 325mg Take 1 tablet by mouth in the morning and 1 tablet in the evening. [facility] ibuprofen 600 mg tablet 2022-0 11-03 00:00: 00 Yes [id number] 600mg Take 1 tablet by mouth every 6 (six) hours as needed (Pain). Take with food or milk. [facility] HYDROcodone -acetaminop hen 5-325 mg tablet 16 00:00: 00 11-11 04:59 :00 No [id number] 1{tbl} Take 1 tablet by mouth every 6 (six) hours as needed for Pain (scale 7-10) (Alternate with Ibuprofen) for up to 7 days. Indication s: acute pain [facility] HYDROcodone -acetaminop hen 5-325 mg tablet 16 00:00: 00 11-11 04:59 :00 No [id number] 1{tbl} Take 1 tablet by mouth every 6 (six) hours as needed for Pain (scale 7-10) (Alternate with Ibuprofen) for up to 7 days. Indication s: acute pain [facility] HYDROcodone -acetaminop hen 5-325 mg tablet 11-03 00:00: 00 11-11 04:59 :00 No [id number] 1{tbl} Take 1 tablet by mouth every 6 (six) hours as needed for Pain (scale 7-10) (Alternate with Ibuprofen) for up to 7 days. Indication s: acute pain [facility] gabapentin 300 mg capsule 11-03 00:00: 00 11-09 04:59 :00 No [id number] 300mg Take 1 capsule by mouth in the morning and 1 capsule at noon and 1 capsule in the evening. Do all this for 5 days. [facility] gabapentin 300 mg capsule 16 00:00: 00 11-09 04:59 :00 No [id number] 300mg Take 1 capsule by mouth in the morning and 1 capsule at noon and 1 capsule in the evening. Do all this for 5 days. [facility] gabapentin 300 mg capsule 2022-16 00:00: 00 11-09 04:59 :00 No [id number] 300mg Take 1 capsule by mouth in the morning and 1 capsule at noon and 1 capsule in the evening. Do all this for 5 days. [facility] sodium chloride 0.9 % irrigation solution 11-02 23:58: 00 Yes PRN, Starting on Tue11/02/22 at 1858, Until Discontinu ed, Intra-op [facility] sodium chloride 0.9 % irrigation solution 11-02 23:58: 00 Yes PRN, Starting on Tue11/02/22 at 1858, Until Discontinu ed, Intra-op [facility] lactated ringers IV infusion 1,000 mL 11-02 23:15: 00 11-03 03:10 :36 No 1000mL at 125 mL/hr, 1,000 mL, IV Infusion, CONTINUOUS , Starting on Tue11/02/22 at 1815, Until Tue11/02/22 at 2210, [facility] ceFAZolin (ANCEF) 2,000 mg in NaCl 0.9% (NS) 100 mL MINI-BAG 11-02 21:47: 58 11-03 00:33 :29 No 2000mg 2,000 mg, IV Piggyback, O.R. HOLDING ONCE, Starting on Tue11/02/22 at 1647, Until Tue11/02/22 at 1933, Administer over 30 Minutes, 100 mL
Reas on for Anti-Infec tive: Surgical Prophylaxi s
Surgi carlitos Prophylaxi s: TAPE STRINGER
Duration of therapy: within 24 hours of surgery [facility] acetaminoph en (TYLENOL) tablet 650 mg 11-02 16:43: 32 11-03 03:11 :56 No 650mg 650 mg, Oral, Q6HPRN, Starting on Tue11/02/22 at 1143, Until Tue11/02/22 at 2211, Routine, Pain (scale 1-3), Pain (scale 4-6) [facility] diphenhydrA MINE (BENADRYL) injection 25 mg 11-02 11:04: 00 11-02 11:11 :00 No 25mg 25 mg, Intravenou s, ONCE, 1 dose, On Tue11/02/22 at 0615, Routine [facility] fentaNYL-ro pivacaine 2 mcg/mL-0.1 % (PF) in NS 200 mL epidural infusion RTU 11-02 05:59: 00 11-03 02:15 :46 No Epidural, ONCE INTRA PROCEDURE, Starting on Tue11/02/22 at 0059, Until Discontinu ed, Routine, Intra-op [facility] fentaNYL-ro pivacaine 2 mcg/mL-0.1 % (PF) in NS 200 mL epidural infusion RTU 11-02 05:59: 00 11-03 02:15 :46 No Epidural, ONCE INTRA PROCEDURE, Starting on Tue11/02/22 at 0059, Until Discontinu ed, Routine, Intra-op [facility] fentaNYL-ro pivacaine 2 mcg/mL-0.1 % (PF) in NS 200 mL epidural infusion RTU 11-02 05:59: 00 11-03 02:15 :46 No Epidural, ONCE INTRA PROCEDURE, Starting on Tue11/02/22 at 0059, Until Discontinu ed, Routine, Intra-op [facility] fentaNYL-ro pivacaine 2 mcg/mL-0.1 % (PF) in NS 200 mL epidural infusion RTU 11-02 05:59: 00 11-03 02:15 :46 No Epidural, ONCE INTRA PROCEDURE, Starting on Tue11/02/22 at 0059, Until Discontinu ed, Routine, Intra-op [facility] fentaNYL-ro pivacaine 2 mcg/mL-0.1 % (PF) in NS 200 mL epidural infusion RTU 11-02 05:59: 00 11-03 02:15 :46 No Epidural, ONCE INTRA PROCEDURE, Starting on Tue11/02/22 at 0059, Until Discontinu ed, Routine, Intra-op [facility] fentaNYL-ro pivacaine 2 mcg/mL-0.1 % (PF) in NS 200 mL epidural infusion RTU 11-02 05:59: 00 11-03 02:15 :46 No Epidural, ONCE INTRA PROCEDURE, Starting on Tue11/02/22 at 0059, Until Discontinu ed, Routine, Intra-op [facility] oxytocin (PITOCIN) 30 units in NS 500 mL IV infusion 11-02 00:53: 14 11-03 03:11 :28 No 2mU/min at 2-40 mL/hr, IV Infusion, TITRATE, Starting on Tue11/01/22 at 1953, Until Tue11/02/22 at 2211, [facility]ATE [facility] ondansetron (ZOFRAN (PF)) injection 4 mg 11-01 23:54: 00 11-03 03:11 :56 No 4mg 4 mg, Slow IV Push, Q8HPRN, Nausea and Vomiting (N/V), Starting on Tue11/01/22 at 1854
Do ses of ondansetro n 16 mg and above need to be administer ed via IV piggyback. For Dose >=24mg ECG monitoring is advisable.
[facility] lactated ringers IV infusion 500 mL 11-01 23:51: 30 11-03 03:11 :28 No 500mL at 999 mL/hr, 500 mL, IV Infusion, PRN - SEE INSTRUCTIO NS, Starting on Tue11/01/22 at 1851, Until Tue11/02/22 at 2211, Routine [facility] D5W-LR IV infusion 1,000 mL 11-01 23:51: 30 11-03 03:11 :28 No 1000mL at 1-125 mL/hr, IV Infusion, TITRATE, Starting on Tue11/01/22 at 1851, Until Tue11/02/22 at 2211, Routine [facility] lactated ringers IV infusion 1,000 mL 10-30 05:00: 00 10-30 05:10 :00 No 1000mL at 999 mL/hr, 1,000 mL, IV Infusion, ONCE, 1 dose, On 10/30/22 at 0000, STAT [facility] betamethaso ne acet,sod phos (CELESTONE SOLUSPAN) 6 mg/mL injection 12 mg 10-28 20:31: 00 10-28 20:58 :00 No 12mg 12 mg, Intramuscu lar, Q24H, 1 dose, First dose on Tue10/28/22 at 1545, Routine [facility] betamethaso ne acet,sod phos (CELESTONE SOLUSPAN) 6 mg/mL injection 12 mg 10-27 20:30: 00 10-27 19:52 :00 No 12mg 12 mg, Intramuscu lar, ONCE, 1 dose, On Tue10/27/22 at 1530, Routine [facility] NaCl 0.9% (NS) IV infusion 1,000 mL 10-05 19:15: 00 10-05 20:00 :00 No 1000mL at 125 mL/hr, IV Infusion, ONCE, 1 dose, On Tue10/05/22 at 1415, Routine [facility] NaCl 0.9% (NS) IV infusion 1,000 mL 10-05 18:15: 00 10-05 18:46 :49 No 1000mL at 999 mL/hr, IV Infusion, ONCE, 1 dose, On Tue10/05/22 at 1315, Routine [facility] ferrous sulfate (IRON, FERROUS SULFATE,) 325 mg (65 mg iron) tablet 10-05 00:00: 00 Yes [id number] 325mg Take 1 tablet by mouth in the morning and 1 tablet in the evening. [facility] ferrous sulfate (IRON, FERROUS SULFATE,) 325 mg (65 mg iron) tablet 10-05 00:00: 00 Yes [id number] 325mg Take 1 tablet by mouth in the morning and 1 tablet in the evening. [facility] ferrous sulfate (IRON, FERROUS SULFATE,) 325 mg (65 mg iron) tablet 10-05 00:00: 00 Yes [id number] 325mg Take 1 tablet by mouth in the morning and 1 tablet in the evening. [facility] ferrous sulfate (IRON, FERROUS SULFATE,) 325 mg (65 mg iron) tablet 10-05 00:00: 00 Yes [id number] 325mg Take 1 tablet by mouth in the morning and 1 tablet in the evening. [facility] ferrous sulfate (IRON, FERROUS SULFATE,) 325 mg (65 mg iron) tablet 10-05 00:00: 00 Yes [id number] 325mg Take 1 tablet by mouth in the morning and 1 tablet in the evening. [facility] ferrous sulfate (IRON, FERROUS SULFATE,) 325 mg (65 mg iron) tablet 10-05 00:00: 00 Yes [id number] 325mg Take 1 tablet by mouth in the morning and 1 tablet in the evening. [facility] ferrous sulfate (IRON, FERROUS SULFATE,) 325 mg (65 mg iron) tablet 10-05 00:00: 00 Yes [id number] 325mg Take 1 tablet by mouth in the morning and 1 tablet in the evening. [facility] ferrous sulfate (IRON, FERROUS SULFATE,) 325 mg (65 mg iron) tablet 10-05 00:00: 00 Yes [id number] 325mg Take 1 tablet by mouth in the morning and 1 tablet in the evening. [facility] ferrous sulfate (IRON, FERROUS SULFATE,) 325 mg (65 mg iron) tablet 10-05 00:00: 00 Yes [id number] 325mg Take 1 tablet by mouth in the morning and 1 tablet in the evening. [facility] ferrous sulfate (IRON, FERROUS SULFATE,) 325 mg (65 mg iron) tablet 10-05 00:00: 00 Yes [id number] 325mg Take 1 tablet by mouth in the morning and 1 tablet in the evening. [facility] ferrous sulfate (IRON, FERROUS SULFATE,) 325 mg (65 mg iron) tablet 10-05 00:00: 00 Yes [id number] 325mg Take 1 tablet by mouth in the morning and 1 tablet in the evening. [facility] ferrous sulfate (IRON, FERROUS SULFATE,) 325 mg (65 mg iron) tablet 10-05 00:00: 00 Yes [id number] 325mg Take 1 tablet by mouth in the morning and 1 tablet in the evening. [facility] ferrous sulfate (IRON, FERROUS SULFATE,) 325 mg (65 mg iron) tablet 10-05 00:00: 00 Yes [id number] 325mg Take 1 tablet by mouth in the morning and 1 tablet in the evening. [facility] ferrous sulfate (IRON, FERROUS SULFATE,) 325 mg (65 mg iron) tablet 10-05 00:00: 00 Yes [id number] 325mg Take 1 tablet by mouth in the morning and 1 tablet in the evening. [facility] ferrous sulfate (IRON, FERROUS SULFATE,) 325 mg (65 mg iron) tablet 10-05 00:00: 00 Yes [id number] 325mg Take 1 tablet by mouth in the morning and 1 tablet in the evening. [facility] ferrous sulfate (IRON, FERROUS SULFATE,) 325 mg (65 mg iron) tablet 10-05 00:00: 00 Yes [id number] 325mg Take 1 tablet by mouth in the morning and 1 tablet in the evening. [facility] ferrous sulfate (IRON, FERROUS SULFATE,) 325 mg (65 mg iron) tablet 10-05 00:00: 00 Yes [id number] 325mg Take 1 tablet by mouth in the morning and 1 tablet in the evening. [facility] ferrous sulfate (IRON, FERROUS SULFATE,) 325 mg (65 mg iron) tablet 10-05 00:00: 00 Yes [id number] 325mg Take 1 tablet by mouth in the morning and 1 tablet in the evening. [facility] ferrous sulfate (IRON, FERROUS SULFATE,) 325 mg (65 mg iron) tablet 10-05 00:00: 00 Yes [id number] 325mg Take 1 tablet by mouth in the morning and 1 tablet in the evening. [facility] ferrous sulfate (IRON, FERROUS SULFATE,) 325 mg (65 mg iron) tablet 10-05 00:00: 00 Yes [id number] 325mg Take 1 tablet by mouth in the morning and 1 tablet in the evening. [facility] ferrous sulfate (IRON, FERROUS SULFATE,) 325 mg (65 mg iron) tablet 10-05 00:00: 00 Yes [id number] 325mg Take 1 tablet by mouth in the morning and 1 tablet in the evening. [facility] ferrous sulfate (IRON, FERROUS SULFATE,) 325 mg (65 mg iron) tablet 18 00:00: 00 11-03 00:00 :00 No [id number] 325mg Take 1 tablet by mouth in the morning and 1 tablet in the evening. [facility] ferrous sulfate (IRON, FERROUS SULFATE,) 325 mg (65 mg iron) tablet 18 00:00: 00 11-03 00:00 :00 No [id number] 325mg Take 1 tablet by mouth in the morning and 1 tablet in the evening. [facility] ferrous sulfate (IRON, FERROUS SULFATE,) 325 mg (65 mg iron) tablet 10-05 00:00: 00 11-03 00:00 :00 No [id number] 325mg Take 1 tablet by mouth in the morning and 1 tablet in the evening. [facility] ferrous sulfate (IRON, FERROUS SULFATE,) 325 mg (65 mg iron) tablet 10-05 00:00: 00 11-03 00:00 :00 No [id number] 325mg Take 1 tablet by mouth in the morning and 1 tablet in the evening. [facility] ondansetron (ZOFRAN) 4 mg tablet 07-07 00:00: 00 Yes 4mg Take 1 tablet by mouth every 8 (eight) hours as needed for Nausea and Vomiting (N/V). [facility] ondansetron (ZOFRAN) 4 mg tablet 07-07 00:00: 00 07-23 00:00 :00 No 4mg Take 1 tablet by mouth every 8 (eight) hours as needed for Nausea and Vomiting (N/V). [facility] fluconazole (DIFLUCAN) 200 mg tablet 404 00:00: 00 Yes [id number] 200mg Take 1 tablet by mouth in the morning. [facility] fluconazole (DIFLUCAN) 200 mg tablet 404 00:00: 00 Yes [id number] 200mg Take 1 tablet by mouth in the morning. [facility] fluconazole (DIFLUCAN) 200 mg tablet 4-04 00:00: 00 Yes [id number] 200mg Take 1 tablet by mouth in the morning. [facility] fluconazole (DIFLUCAN) 200 mg tablet 2022-0 404 00:00: 00 Yes [id number] 200mg Take 1 tablet by mouth in the morning. [facility] fluconazole (DIFLUCAN) 200 mg tablet 2022-0 4-04 00:00: 00 Yes [id number] 200mg Take 1 tablet by mouth in the morning. [facility] fluconazole (DIFLUCAN) 200 mg tablet 0 4-04 00:00: 00 Yes [id number] 200mg Take 1 tablet by mouth in the morning. [facility] fluconazole (DIFLUCAN) 200 mg tablet 2022-0 4 00:00: 00 Yes [id number] 200mg Take 1 tablet by mouth in the morning. [facility] fluconazole (DIFLUCAN) 200 mg tablet 0 06-22 00:00: 00 10-01 00:00 :00 No [id number] 200mg Take 1 tablet by mouth in the morning. [facility] ondansetron 4 mg tablet 06-18 14:40: 41 06-18 00:00 :00 No 4mg Take 1 tablet by mouth every 8 (eight) hours as needed for Nausea and Vomiting (N/V). [facility] busPIRone 7.5 mg tablet 0 06-18 00:00: 00 Yes [id number] 7.5mg Take 1 tablet by mouth in the morning and 1 tablet in the evening. [facility] busPIRone 7.5 mg tablet 2022-0 06-18 00:00: 00 Yes [id number] 7.5mg Take 1 tablet by mouth in the morning and 1 tablet in the evening. [facility] busPIRone 7.5 mg tablet 2022-0 06-18 00:00: 00 Yes [id number] 7.5mg Take 1 tablet by mouth in the morning and 1 tablet in the evening. [facility] busPIRone 7.5 mg tablet 2022-0 06-18 00:00: 00 Yes [id number] 7.5mg Take 1 tablet by mouth in the morning and 1 tablet in the evening. [facility] busPIRone 7.5 mg tablet 3-0 3 00:00: 00 Yes [id number] 7.5mg Take 1 tablet by mouth in the morning and 1 tablet in the evening. [facility] busPIRone 7.5 mg tablet 3-0 06-18 00:00: 00 Yes [id number] 7.5mg Take 1 tablet by mouth in the morning and 1 tablet in the evening. [facility] fluconazole 200 mg tablet 3-0 06-18 00:00: 00 Yes [id number] 200mg Take 1 tablet by mouth in the morning. [facility] busPIRone 7.5 mg tablet 3-0 06-18 00:00: 00 Yes [id number] 7.5mg Take 1 tablet by mouth in the morning and 1 tablet in the evening. [facility] fluconazole 200 mg tablet 3-0 06-18 00:00: 00 Yes [id number] 200mg Take 1 tablet by mouth in the morning. [facility] busPIRone 7.5 mg tablet 3-0 06-18 00:00: 00 Yes [id number] 7.5mg Take 1 tablet by mouth in the morning and 1 tablet in the evening. [facility] fluconazole 200 mg tablet 3-0 06-18 00:00: 00 Yes [id number] 200mg Take 1 tablet by mouth in the morning. [facility] busPIRone 7.5 mg tablet 3-0 06-18 00:00: 00 Yes [id number] 7.5mg Take 1 tablet by mouth in the morning and 1 tablet in the evening. [facility] fluconazole 200 mg tablet 3-0 3 00:00: 00 Yes [id number] 200mg Take 1 tablet by mouth in the morning. [facility] busPIRone 7.5 mg tablet 3-0 3 00:00: 00 Yes [id number] 7.5mg Take 1 tablet by mouth in the morning and 1 tablet in the evening. [facility] fluconazole 200 mg tablet 3-0 3 00:00: 00 Yes [id number] 200mg Take 1 tablet by mouth in the morning. [facility] busPIRone 7.5 mg tablet 3-0 06-18 00:00: 00 Yes [id number] 7.5mg Take 1 tablet by mouth in the morning and 1 tablet in the evening. [facility] fluconazole 200 mg tablet 3-0 06-18 00:00: 00 Yes [id number] 200mg Take 1 tablet by mouth in the morning. [facility] busPIRone 7.5 mg tablet 3-0 06-18 00:00: 00 Yes [id number] 7.5mg Take 1 tablet by mouth in the morning and 1 tablet in the evening. [facility] fluconazole 200 mg tablet 2022-0 06-18 00:00: 00 Yes [id number] 200mg Take 1 tablet by mouth in the morning. [facility] busPIRone 7.5 mg tablet 3-0 06-18 00:00: 00 Yes [id number] 7.5mg Take 1 tablet by mouth in the morning and 1 tablet in the evening. [facility] fluconazole 200 mg tablet 2022-0 06-18 00:00: 00 Yes [id number] 200mg Take 1 tablet by mouth in the morning. [facility] busPIRone 7.5 mg tablet 2022-0 06-18 00:00: 00 Yes [id number] 7.5mg Take 1 tablet by mouth in the morning and 1 tablet in the evening. [facility] busPIRone 7.5 mg tablet 3-0 06-18 00:00: 00 Yes [id number] 7.5mg Take 1 tablet by mouth in the morning and 1 tablet in the evening. [facility] busPIRone 7.5 mg tablet 3-0 06-18 00:00: 00 Yes [id number] 7.5mg Take 1 tablet by mouth in the morning and 1 tablet in the evening. [facility] busPIRone 7.5 mg tablet 3-0 06-18 00:00: 00 Yes [id number] 7.5mg Take 1 tablet by mouth in the morning and 1 tablet in the evening. [facility] busPIRone 7.5 mg tablet 3-0 3 00:00: 00 Yes [id number] 7.5mg Take 1 tablet by mouth in the morning and 1 tablet in the evening. [facility] tablet 3-0 3 00:00: 00 Yes [id number] 7.5mg Take 1 tablet by mouth in the morning and 1 tablet in the evening. [facility] busPIRone 7.5 mg tablet 3-0 3 00:00: 00 Yes [id number] 7.5mg Take 1 tablet by mouth in the morning and 1 tablet in the evening. [facility] busPIRone 7.5 mg tablet 3-0 06-18 00:00: 00 Yes [id number] 7.5mg Take 1 tablet by mouth in the morning and 1 tablet in the evening. [facility] busPIRone 7.5 mg tablet 3-0 06-18 00:00: 00 Yes [id number] 7.5mg Take 1 tablet by mouth in the morning and 1 tablet in the evening. [facility] busPIRone 7.5 mg tablet 3-0 06-18 00:00: 00 Yes [id number] 7.5mg Take 1 tablet by mouth in the morning and 1 tablet in the evening. [facility] busPIRone 7.5 mg tablet 3-0 06-18 00:00: 00 Yes [id number] 7.5mg Take 1 tablet by mouth in the morning and 1 tablet in the evening. [facility] busPIRone 7.5 mg tablet 3-0 06-18 00:00: 00 Yes [id number] 7.5mg Take 1 tablet by mouth in the morning and 1 tablet in the evening. [facility] busPIRone 7.5 mg tablet 3-0 3 00:00: 00 Yes [id number] 7.5mg Take 1 tablet by mouth in the morning and 1 tablet in the evening. [facility] busPIRone 7.5 mg tablet 3-0 3 00:00: 00 Yes [id number] 7.5mg Take 1 tablet by mouth in the morning and 1 tablet in the evening. [facility] busPIRone 7.5 mg tablet 3-0 3 00:00: 00 Yes [id number] 7.5mg Take 1 tablet by mouth in the morning and 1 tablet in the evening. [facility] busPIRone 7.5 mg tablet 3-0 3 00:00: 00 Yes [id number] 7.5mg Take 1 tablet by mouth in the morning and 1 tablet in the evening. [facility] busPIRone 7.5 mg tablet 3-0 3 00:00: 00 Yes [id number] 7.5mg Take 1 tablet by mouth in the morning and 1 tablet in the evening. [facility] busPIRone 7.5 mg tablet 3-0 06-18 00:00: 00 Yes [id number] 7.5mg Take 1 tablet by mouth in the morning and 1 tablet in the evening. [facility] busPIRone 7.5 mg tablet 3-0 06-18 00:00: 00 Yes [id number] 7.5mg Take 1 tablet by mouth in the morning and 1 tablet in the evening. [facility] busPIRone 7.5 mg tablet 3-0 06-18 00:00: 00 Yes [id number] 7.5mg Take 1 tablet by mouth in the morning and 1 tablet in the evening. [facility] busPIRone 7.5 mg tablet 3-0 06-18 00:00: 00 Yes [id number] 7.5mg Take 1 tablet by mouth in the morning and 1 tablet in the evening. [facility] busPIRone 7.5 mg tablet 3-0 3 00:00: 00 Yes [id number] 7.5mg Take 1 tablet by mouth in the morning and 1 tablet in the evening. [facility] busPIRone 7.5 mg tablet 3-0 3 00:00: 00 Yes [id number] 7.5mg Take 1 tablet by mouth in the morning and 1 tablet in the evening. [facility] busPIRone 7.5 mg tablet 3-0 3 00:00: 00 -16 00:00 :00 No [id number] 7.5mg Take 1 tablet by mouth in the morning and 1 tablet in the evening. [facility] busPIRone 7.5 mg tablet 06-18 00:00: 00 11-03 00:00 :00 No [id number] 7.5mg Take 1 tablet by mouth in the morning and 1 tablet in the evening. [facility] busPIRone 7.5 mg tablet 06-18 00:00: 00 11-03 00:00 :00 No [id number] 7.5mg Take 1 tablet by mouth in the morning and 1 tablet in the evening. [facility] busPIRone 7.5 mg tablet 06-18 00:00: 00 11-03 00:00 :00 No [id number] 7.5mg Take 1 tablet by mouth in the morning and 1 tablet in the evening. [facility] fluconazole 200 mg tablet 06-18 00:00: 00 10-01 00:00 :00 No [id number] 200mg Take 1 tablet by mouth in the morning. [facility] metoclopram delores HCl 10 mg tablet 2022-0 2-15 00:00: 00 Yes [id number] 10mg Take 1 tablet by mouth in the morning and 1 tablet at noon and 1 tablet in the evening. Take before meals. [facility] metoclopram delores HCl 10 mg tablet 2022-0 2-15 00:00: 00 Yes [id number] 10mg Take 1 tablet by mouth in the morning and 1 tablet at noon and 1 tablet in the evening. Take before meals. [facility] metoclopram delores HCl 10 mg tablet 2022-0 2-15 00:00: 00 Yes [id number] 10mg Take 1 tablet by mouth in the morning and 1 tablet at noon and 1 tablet in the evening. Take before meals. [facility] metoclopram delores HCl 10 mg tablet 2022-0 2-15 00:00: 00 Yes [id number] 10mg Take 1 tablet by mouth in the morning and 1 tablet at noon and 1 tablet in the evening. Take before meals. [facility] metoclopram delores HCl 10 mg tablet 2023-0 2-15 00:00: 00 Yes [id number] 10mg Take 1 tablet by mouth in the morning and 1 tablet at noon and 1 tablet in the evening. Take before meals. [facility] metoclopram delores HCl 10 mg tablet 2022-0 2-15 00:00: 00 Yes [id number] 10mg Take 1 tablet by mouth in the morning and 1 tablet at noon and 1 tablet in the evening. Take before meals. [facility] metoclopram delores HCl 10 mg tablet 2022-0 2-15 00:00: 00 Yes [id number] 10mg Take 1 tablet by mouth in the morning and 1 tablet at noon and 1 tablet in the evening. Take before meals. [facility] metoclopram delores HCl 10 mg tablet 2022-0 2-15 00:00: 00 Yes [id number] 10mg Take 1 tablet by mouth in the morning and 1 tablet at noon and 1 tablet in the evening. Take before meals. [facility] metoclopram delores HCl 10 mg tablet 2022-0 2-15 00:00: 00 Yes [id number] 10mg Take 1 tablet by mouth in the morning and 1 tablet at noon and 1 tablet in the evening. Take before meals. [facility] metoclopram delores HCl 10 mg tablet 2022-0 2-15 00:00: 00 Yes [id number] 10mg Take 1 tablet by mouth in the morning and 1 tablet at noon and 1 tablet in the evening. Take before meals. [facility] metoclopram delores HCl 10 mg tablet 2022-0 2-15 00:00: 00 Yes [id number] 10mg Take 1 tablet by mouth in the morning and 1 tablet at noon and 1 tablet in the evening. Take before meals. [facility] metoclopram delores HCl 10 mg tablet 3-0 2-15 00:00: 00 Yes [id number] 10mg Take 1 tablet by mouth in the morning and 1 tablet at noon and 1 tablet in the evening. Take before meals. [facility] metoclopram delores HCl 10 mg tablet 3-0 2-15 00:00: 00 Yes [id number] 10mg Take 1 tablet by mouth in the morning and 1 tablet at noon and 1 tablet in the evening. Take before meals. [facility] metoclopram delores HCl 10 mg tablet 2022-0 2-15 00:00: 00 Yes [id number] 10mg Take 1 tablet by mouth in the morning and 1 tablet at noon and 1 tablet in the evening. Take before meals. [facility] metoclopram delores HCl 10 mg tablet 3-0 2-15 00:00: 00 Yes [id number] 10mg Take 1 tablet by mouth in the morning and 1 tablet at noon and 1 tablet in the evening. Take before meals. [facility] metoclopram delores HCl 10 mg tablet 3-0 2-15 00:00: 00 Yes [id number] 10mg Take 1 tablet by mouth in the morning and 1 tablet at noon and 1 tablet in the evening. Take before meals. [facility] metoclopram delores HCl 10 mg tablet 2022-0 2-15 00:00: 00 Yes [id number] 10mg Take 1 tablet by mouth in the morning and 1 tablet at noon and 1 tablet in the evening. Take before meals. [facility] metoclopram delores HCl 10 mg tablet 2022-0 2-15 00:00: 00 Yes [id number] 10mg Take 1 tablet by mouth in the morning and 1 tablet at noon and 1 tablet in the evening. Take before meals. [facility] metoclopram delores HCl 10 mg tablet 2022-0 2-15 00:00: 00 Yes [id number] 10mg Take 1 tablet by mouth in the morning and 1 tablet at noon and 1 tablet in the evening. Take before meals. [facility] metoclopram delores HCl 10 mg tablet 3-0 2-15 00:00: 00 Yes [id number] 10mg Take 1 tablet by mouth in the morning and 1 tablet at noon and 1 tablet in the evening. Take before meals. [facility] metoclopram delores HCl 10 mg tablet 3-0 2-15 00:00: 00 Yes [id number] 10mg Take 1 tablet by mouth in the morning and 1 tablet at noon and 1 tablet in the evening. Take before meals. [facility] metoclopram delores HCl 10 mg tablet 2022-0 2-15 00:00: 00 Yes [id number] 10mg Take 1 tablet by mouth in the morning and 1 tablet at noon and 1 tablet in the evening. Take before meals. [facility] metoclopram delores HCl 10 mg tablet 2022-0 -15 00:00: 00 Yes [id number] 10mg Take 1 tablet by mouth in the morning and 1 tablet at noon and 1 tablet in the evening. Take before meals. [facility] metoclopram delores HCl 10 mg tablet 2022-0 -15 00:00: 00 Yes [id number] 10mg Take 1 tablet by mouth in the morning and 1 tablet at noon and 1 tablet in the evening. Take before meals. [facility] metoclopram delores HCl 10 mg tablet 2022-0 15 00:00: 00 Yes [id number] 10mg Take 1 tablet by mouth in the morning and 1 tablet at noon and 1 tablet in the evening. Take before meals. [facility] metoclopram delores HCl 10 mg tablet 2022-0 15 00:00: 00 Yes [id number] 10mg Take 1 tablet by mouth in the morning and 1 tablet at noon and 1 tablet in the evening. Take before meals. [facility] metoclopram delores HCl 10 mg tablet 2022-0 15 00:00: 00 Yes [id number] 10mg Take 1 tablet by mouth in the morning and 1 tablet at noon and 1 tablet in the evening. Take before meals. [facility] metoclopram delores HCl 10 mg tablet 2022-0 -15 00:00: 00 Yes [id number] 10mg Take 1 tablet by mouth in the morning and 1 tablet at noon and 1 tablet in the evening. Take before meals. [facility] metoclopram delores HCl 10 mg tablet 2022-0 -15 00:00: 00 Yes [id number] 10mg Take 1 tablet by mouth in the morning and 1 tablet at noon and 1 tablet in the evening. Take before meals. [facility] metoclopram delores HCl 10 mg tablet 3-0 -15 00:00: 00 Yes [id number] 10mg Take 1 tablet by mouth in the morning and 1 tablet at noon and 1 tablet in the evening. Take before meals. [facility] metoclopram delores HCl 10 mg tablet 3-0 2-15 00:00: 00 Yes [id number] 10mg Take 1 tablet by mouth in the morning and 1 tablet at noon and 1 tablet in the evening. Take before meals. [facility] metoclopram delores HCl 10 mg tablet 3-0 2-15 00:00: 00 Yes [id number] 10mg Take 1 tablet by mouth in the morning and 1 tablet at noon and 1 tablet in the evening. Take before meals. [facility] metoclopram delores HCl 10 mg tablet 3-0 2-15 00:00: 00 Yes [id number] 10mg Take 1 tablet by mouth in the morning and 1 tablet at noon and 1 tablet in the evening. Take before meals. [facility] metoclopram delores HCl 10 mg tablet 3-0 2-15 00:00: 00 Yes [id number] 10mg Take 1 tablet by mouth in the morning and 1 tablet at noon and 1 tablet in the evening. Take before meals. [facility] metoclopram delores HCl 10 mg tablet 3-0 2-15 00:00: 00 Yes [id number] 10mg Take 1 tablet by mouth in the morning and 1 tablet at noon and 1 tablet in the evening. Take before meals. [facility] metoclopram delroes HCl 10 mg tablet 3-0 2-15 00:00: 00 Yes [id number] 10mg Take 1 tablet by mouth in the morning and 1 tablet at noon and 1 tablet in the evening. Take before meals. [facility] metoclopram delores HCl 10 mg tablet 3-0 2-15 00:00: 00 Yes [id number] 10mg Take 1 tablet by mouth in the morning and 1 tablet at noon and 1 tablet in the evening. Take before meals. [facility] metoclopram delores HCl 10 mg tablet 3-0 2-15 00:00: 00 Yes [id number] 10mg Take 1 tablet by mouth in the morning and 1 tablet at noon and 1 tablet in the evening. Take before meals. [facility] metoclopram delores HCl 10 mg tablet 2022-0 2-15 00:00: 00 Yes [id number] 10mg Take 1 tablet by mouth in the morning and 1 tablet at noon and 1 tablet in the evening. Take before meals. [facility] metoclopram delores HCl 10 mg tablet 2022-0 2-15 00:00: 00 Yes [id number] 10mg Take 1 tablet by mouth in the morning and 1 tablet at noon and 1 tablet in the evening. Take before meals. [facility] metoclopram delores HCl 10 mg tablet 2022-0 2-15 00:00: 00 Yes [id number] 10mg Take 1 tablet by mouth in the morning and 1 tablet at noon and 1 tablet in the evening. Take before meals. [facility] metoclopram delores HCl 10 mg tablet 2022-0 2-15 00:00: 00 Yes [id number] 10mg Take 1 tablet by mouth in the morning and 1 tablet at noon and 1 tablet in the evening. Take before meals. [facility] metoclopram delores HCl 10 mg tablet 2022-0 2-15 00:00: 00 Yes [id number] 10mg Take 1 tablet by mouth in the morning and 1 tablet at noon and 1 tablet in the evening. Take before meals. [facility] metoclopram delores HCl 10 mg tablet 2022-0 2-15 00:00: 00 11-03 00:00 :00 No [id number] 10mg Take 1 tablet by mouth in the morning and 1 tablet at noon and 1 tablet in the evening. Take before meals. [facility] metoclopram delores HCl 10 mg tablet 2022-0 2-15 00:00: 00 11-03 00:00 :00 No [id number] 10mg Take 1 tablet by mouth in the morning and 1 tablet at noon and 1 tablet in the evening. Take before meals. [facility] metoclopram delores HCl 10 mg tablet 2022-0 2-15 00:00: 00 11-03 00:00 :00 No [id number] 10mg Take 1 tablet by mouth in the morning and 1 tablet at noon and 1 tablet in the evening. Take before meals. [facility] metoclopram delores HCl 10 mg tablet 2022-0 2-15 00:00: 00 08-16 00:00 :00 No [id number] 10mg Take 1 tablet by mouth in the morning and 1 tablet at noon and 1 tablet in the evening. Take before meals. [facility] ondansetron 4 mg tablet 2022-0 2-14 00:00: 00 Yes [id number] 4mg Take 1 tablet by mouth every 8 (eight) hours as needed for Nausea and Vomiting (N/V). [facility] ondansetron 4 mg tablet 2022-0 2-14 00:00: 00 Yes [id number] 4mg Take 1 tablet by mouth every 8 (eight) hours as needed for Nausea and Vomiting (N/V). [facility] ondansetron 4 mg tablet 2022-0 2-14 00:00: 00 Yes [id number] 4mg Take 1 tablet by mouth every 8 (eight) hours as needed for Nausea and Vomiting (N/V). [facility] ondansetron 4 mg tablet 2022-0 2-14 00:00: 00 Yes [id number] 4mg Take 1 tablet by mouth every 8 (eight) hours as needed for Nausea and Vomiting (N/V). [facility] ondansetron 4 mg tablet 2022-0 2-14 00:00: 00 Yes [id number] 4mg Take 1 tablet by mouth every 8 (eight) hours as needed for Nausea and Vomiting (N/V). [facility] ondansetron 4 mg tablet 2022-0 2-14 00:00: 00 Yes [id number] 4mg Take 1 tablet by mouth every 8 (eight) hours as needed for Nausea and Vomiting (N/V). [facility] ondansetron 4 mg tablet 3-0 2-14 00:00: 00 Yes [id number] 4mg Take 1 tablet by mouth every 8 (eight) hours as needed for Nausea and Vomiting (N/V). [facility] ondansetron 4 mg tablet 3-0 2-14 00:00: 00 Yes [id number] 4mg Take 1 tablet by mouth every 8 (eight) hours as needed for Nausea and Vomiting (N/V). [facility] ondansetron 4 mg tablet 2023-0 2-14 00:00: 00 Yes [id number] 4mg Take 1 tablet by mouth every 8 (eight) hours as needed for Nausea and Vomiting (N/V). [facility] ondansetron 4 mg tablet 2023-0 2-14 00:00: 00 Yes [id number] 4mg Take 1 tablet by mouth every 8 (eight) hours as needed for Nausea and Vomiting (N/V). [facility] ondansetron 4 mg tablet 2023-0 2-14 00:00: 00 Yes [id number] 4mg Take 1 tablet by mouth every 8 (eight) hours as needed for Nausea and Vomiting (N/V). [facility] ondansetron 4 mg tablet 3-0 2-14 00:00: 00 Yes [id number] 4mg Take 1 tablet by mouth every 8 (eight) hours as needed for Nausea and Vomiting (N/V). [facility] ondansetron 4 mg tablet 3-0 2-14 00:00: 00 Yes [id number] 4mg Take 1 tablet by mouth every 8 (eight) hours as needed for Nausea and Vomiting (N/V). [facility] ondansetron 4 mg tablet 3-0 2-14 00:00: 00 Yes [id number] 4mg Take 1 tablet by mouth every 8 (eight) hours as needed for Nausea and Vomiting (N/V). [facility] ondansetron 4 mg tablet 2023-0 2-14 00:00: 00 Yes [id number] 4mg Take 1 tablet by mouth every 8 (eight) hours as needed for Nausea and Vomiting (N/V). [facility] ondansetron 4 mg tablet 2023-0 2-14 00:00: 00 Yes [id number] 4mg Take 1 tablet by mouth every 8 (eight) hours as needed for Nausea and Vomiting (N/V). [facility] ondansetron 4 mg tablet 2023-0 2-14 00:00: 00 Yes [id number] 4mg Take 1 tablet by mouth every 8 (eight) hours as needed for Nausea and Vomiting (N/V). [facility] ondansetron 4 mg tablet 2023-0 2-14 00:00: 00 Yes [id number] 4mg Take 1 tablet by mouth every 8 (eight) hours as needed for Nausea and Vomiting (N/V). [facility] ondansetron 4 mg tablet 2023-0 2-14 00:00: 00 Yes [id number] 4mg Take 1 tablet by mouth every 8 (eight) hours as needed for Nausea and Vomiting (N/V). [facility] ondansetron 4 mg tablet 2023-0 2-14 00:00: 00 Yes [id number] 4mg Take 1 tablet by mouth every 8 (eight) hours as needed for Nausea and Vomiting (N/V). [facility] ondansetron 4 mg tablet 3-0 2-14 00:00: 00 Yes [id number] 4mg Take 1 tablet by mouth every 8 (eight) hours as needed for Nausea and Vomiting (N/V). [facility] ondansetron 4 mg tablet 2023-0 2-14 00:00: 00 Yes [id number] 4mg Take 1 tablet by mouth every 8 (eight) hours as needed for Nausea and Vomiting (N/V). [facility] ondansetron 4 mg tablet 3-0 2-14 00:00: 00 Yes [id number] 4mg Take 1 tablet by mouth every 8 (eight) hours as needed for Nausea and Vomiting (N/V). [facility] ondansetron 4 mg tablet 2023-0 2-14 00:00: 00 Yes [id number] 4mg Take 1 tablet by mouth every 8 (eight) hours as needed for Nausea and Vomiting (N/V). [facility] ondansetron 4 mg tablet 2023-0 2-14 00:00: 00 Yes [id number] 4mg Take 1 tablet by mouth every 8 (eight) hours as needed for Nausea and Vomiting (N/V). [facility] ondansetron 4 mg tablet 2023-0 2-14 00:00: 00 Yes [id number] 4mg Take 1 tablet by mouth every 8 (eight) hours as needed for Nausea and Vomiting (N/V). [facility] ondansetron 4 mg tablet 2023-0 2-14 00:00: 00 Yes [id number] 4mg Take 1 tablet by mouth every 8 (eight) hours as needed for Nausea and Vomiting (N/V). [facility] ondansetron 4 mg tablet 2023-0 2-14 00:00: 00 Yes [id number] 4mg Take 1 tablet by mouth every 8 (eight) hours as needed for Nausea and Vomiting (N/V). [facility] ondansetron 4 mg tablet 2023-0 2-14 00:00: 00 Yes [id number] 4mg Take 1 tablet by mouth every 8 (eight) hours as needed for Nausea and Vomiting (N/V). [facility] ondansetron 4 mg tablet 2023-0 2-14 00:00: 00 Yes [id number] 4mg Take 1 tablet by mouth every 8 (eight) hours as needed for Nausea and Vomiting (N/V). [facility] ondansetron 4 mg tablet 2023-0 2-14 00:00: 00 Yes [id number] 4mg Take 1 tablet by mouth every 8 (eight) hours as needed for Nausea and Vomiting (N/V). [facility] ondansetron 4 mg tablet 2023-0 2-14 00:00: 00 Yes [id number] 4mg Take 1 tablet by mouth every 8 (eight) hours as needed for Nausea and Vomiting (N/V). [facility] ondansetron 4 mg tablet 2023-0 2-14 00:00: 00 Yes [id number] 4mg Take 1 tablet by mouth every 8 (eight) hours as needed for Nausea and Vomiting (N/V). [facility] ondansetron 4 mg tablet 2023-0 2-14 00:00: 00 Yes [id number] 4mg Take 1 tablet by mouth every 8 (eight) hours as needed for Nausea and Vomiting (N/V). [facility] ondansetron 4 mg tablet 2023-0 2-14 00:00: 00 Yes [id number] 4mg Take 1 tablet by mouth every 8 (eight) hours as needed for Nausea and Vomiting (N/V). [facility] ondansetron 4 mg tablet 2023-0 2-14 00:00: 00 Yes [id number] 4mg Take 1 tablet by mouth every 8 (eight) hours as needed for Nausea and Vomiting (N/V). [facility] ondansetron 4 mg tablet 2023-0 2-14 00:00: 00 Yes [id number] 4mg Take 1 tablet by mouth every 8 (eight) hours as needed for Nausea and Vomiting (N/V). [facility] ondansetron 4 mg tablet 2023-0 2-14 00:00: 00 Yes [id number] 4mg Take 1 tablet by mouth every 8 (eight) hours as needed for Nausea and Vomiting (N/V). [facility] ondansetron 4 mg tablet 2023-0 2-14 00:00: 00 Yes [id number] 4mg Take 1 tablet by mouth every 8 (eight) hours as needed for Nausea and Vomiting (N/V). [facility] ondansetron 4 mg tablet 2023-0 2-14 00:00: 00 Yes [id number] 4mg Take 1 tablet by mouth every 8 (eight) hours as needed for Nausea and Vomiting (N/V). [facility] ondansetron 4 mg tablet 3-0 2-14 00:00: 00 Yes [id number] 4mg Take 1 tablet by mouth every 8 (eight) hours as needed for Nausea and Vomiting (N/V). [facility] ondansetron 4 mg tablet 2023-0 2-14 00:00: 00 Yes [id number] 4mg Take 1 tablet by mouth every 8 (eight) hours as needed for Nausea and Vomiting (N/V). [facility] ondansetron 4 mg tablet 2023-0 2-14 00:00: 00 Yes [id number] 4mg Take 1 tablet by mouth every 8 (eight) hours as needed for Nausea and Vomiting (N/V). [facility] ondansetron 4 mg tablet 2023-0 2-14 00:00: 00 Yes [id number] 4mg Take 1 tablet by mouth every 8 (eight) hours as needed for Nausea and Vomiting (N/V). [facility] ondansetron 4 mg tablet 2023-0 2-14 00:00: 00 Yes [id number] 4mg Take 1 tablet by mouth every 8 (eight) hours as needed for Nausea and Vomiting (N/V). [facility] ondansetron 4 mg tablet 2022-0 2-14 00:00: 00 Yes [id number] 4mg Take 1 tablet by mouth every 8 (eight) hours as needed for Nausea and Vomiting (N/V). [facility] ondansetron 4 mg tablet 2022-0 2-14 00:00: 00 Yes [id number] 4mg Take 1 tablet by mouth every 8 (eight) hours as needed for Nausea and Vomiting (N/V). [facility] ondansetron 4 mg tablet 2022-0 2-14 00:00: 00 11-03 00:00 :00 No [id number] 4mg Take 1 tablet by mouth every 8 (eight) hours as needed for Nausea and Vomiting (N/V). [facility] ondansetron 4 mg tablet 0 2-14 00:00: 00 11-03 00:00 :00 No [id number] 4mg Take 1 tablet by mouth every 8 (eight) hours as needed for Nausea and Vomiting (N/V). [facility] ondansetron 4 mg tablet 0 2-14 00:00: 00 11-03 00:00 :00 No [id number] 4mg Take 1 tablet by mouth every 8 (eight) hours as needed for Nausea and Vomiting (N/V). [facility] ondansetron 4 mg tablet 2022-0 2-14 00:00: 00 11-03 00:00 :00 No [id number] 4mg Take 1 tablet by mouth every 8 (eight) hours as needed for Nausea and Vomiting (N/V). [facility] ondansetron (ZOFRAN) 4 mg tablet 2022-0 -13 14:01: 54 Yes 4mg Take 4 mg by mouth every 8 (eight) hours as needed for Nausea and Vomiting (N/V). [facility] ondansetron (ZOFRAN) 4 mg tablet 2022-0 2-13 14:01: 54 Yes 4mg Take 4 mg by mouth every 8 (eight) hours as needed for Nausea and Vomiting (N/V). [facility] ondansetron (ZOFRAN) 4 mg tablet 0 05-03 14:01: 54 Yes 4mg Take 4 mg by mouth every 8 (eight) hours as needed for Nausea and Vomiting (N/V). [facility] ondansetron (ZOFRAN) 4 mg tablet 2022-0 05-03 14:01: 54 Yes 4mg Take 4 mg by mouth every 8 (eight) hours as needed for Nausea and Vomiting (N/V). [facility] ondansetron (ZOFRAN) 4 mg tablet 0 05-03 14:01: 54 Yes 4mg Take 4 mg by mouth every 8 (eight) hours as needed for Nausea and Vomiting (N/V). [facility] ondansetron (ZOFRAN) 4 mg tablet 0 05-03 14:01: 54 Yes 4mg Take 4 mg by mouth every 8 (eight) hours as needed for Nausea and Vomiting (N/V). [facility] ondansetron (ZOFRAN) 4 mg tablet 0 05-03 14:01: 54 Yes 4mg Take 4 mg by mouth every 8 (eight) hours as needed for Nausea and Vomiting (N/V). [facility] ondansetron (ZOFRAN) 4 mg tablet 0 05-03 14:01: 54 Yes 4mg Take 4 mg by mouth every 8 (eight) hours as needed for Nausea and Vomiting (N/V). [facility] ondansetron (ZOFRAN) 4 mg tablet 2022-0 05-03 14:01: 54 Yes 4mg Take 4 mg by mouth every 8 (eight) hours as needed for Nausea and Vomiting (N/V). [facility] ondansetron (ZOFRAN) 4 mg tablet 2022-0 05-03 14:01: 54 Yes 4mg Take 4 mg by mouth every 8 (eight) hours as needed for Nausea and Vomiting (N/V). [facility] ondansetron (ZOFRAN) 4 mg tablet 13 14:01: 54 Yes 4mg Take 4 mg by mouth every 8 (eight) hours as needed for Nausea and Vomiting (N/V). [facility] NaCl 0.9% (NS) bolus infusion 1,000 mL 05-01 08:15: 00 05-01 08:54 :00 No 1000mL at 999 mL/hr, 1,000 mL, IV Infusion, ONCE, 1 dose, On 05/01/22 at 0215, KATE [facility] ondansetron (ZOFRAN) 4 mg tablet 04-23 10:19: 56 Yes 4mg Take 4 mg by mouth every 8 (eight) hours as needed for Nausea and Vomiting (N/V). [facility] ondansetron (ZOFRAN) 4 mg tablet 04-23 10:19: 56 Yes 4mg Take 4 mg by mouth every 8 (eight) hours as needed for Nausea and Vomiting (N/V). [facility] ondansetron (ZOFRAN) 4 mg tablet 04-23 10:19: 56 Yes 4mg Take 4 mg by mouth every 8 (eight) hours as needed for Nausea and Vomiting (N/V). [facility] ondansetron (ZOFRAN) 4 mg tablet 04-23 10:19: 56 Yes 4mg Take 4 mg by mouth every 8 (eight) hours as needed for Nausea and Vomiting (N/V). [facility] docusate (COLACE) 100 mg capsule 203 00:00: 00 Yes [id number] 100mg Take 1 capsule by mouth in the morning. [facility] docusate (COLACE) 100 mg capsule 2022-0 2-03 00:00: 00 Yes [id number] 100mg Take 1 capsule by mouth in the morning. [facility] docusate (COLACE) 100 mg capsule 2022-0 2- 00:00: 00 Yes [id number] 100mg Take 1 capsule by mouth in the morning. [facility] docusate (COLACE) 100 mg capsule 2023-0 2-03 00:00: 00 Yes [id number] 100mg Take 1 capsule by mouth in the morning. [facility] docusate (COLACE) 100 mg capsule 3-0 2-03 00:00: 00 Yes [id number] 100mg Take 1 capsule by mouth in the morning. [facility] docusate (COLACE) 100 mg capsule 2023-0 2-03 00:00: 00 Yes [id number] 100mg Take 1 capsule by mouth in the morning. [facility] docusate (COLACE) 100 mg capsule 3-0 2-03 00:00: 00 Yes [id number] 100mg Take 1 capsule by mouth in the morning. [facility] docusate (COLACE) 100 mg capsule 3-0 2-03 00:00: 00 Yes [id number] 100mg Take 1 capsule by mouth in the morning. [facility] docusate (COLACE) 100 mg capsule 3-0 2-03 00:00: 00 Yes [id number] 100mg Take 1 capsule by mouth in the morning. [facility] docusate (COLACE) 100 mg capsule 3-0 2-03 00:00: 00 Yes [id number] 100mg Take 1 capsule by mouth in the morning. [facility] docusate (COLACE) 100 mg capsule 3-0 2-03 00:00: 00 Yes [id number] 100mg Take 1 capsule by mouth in the morning. [facility] docusate (COLACE) 100 mg capsule 3-0 2-03 00:00: 00 Yes [id number] 100mg Take 1 capsule by mouth in the morning. [facility] docusate (COLACE) 100 mg capsule 3-0 2-03 00:00: 00 Yes [id number] 100mg Take 1 capsule by mouth in the morning. [facility] docusate (COLACE) 100 mg capsule 3-0 2-03 00:00: 00 Yes [id number] 100mg Take 1 capsule by mouth in the morning. [facility] docusate (COLACE) 100 mg capsule 3-0 2-03 00:00: 00 Yes [id number] 100mg Take 1 capsule by mouth in the morning. [facility] docusate (COLACE) 100 mg capsule 2023-0 2-03 00:00: 00 Yes [id number] 100mg Take 1 capsule by mouth in the morning. [facility] 2023-0 2-03 00:00: 00 Yes [id number] 100mg Take 1 capsule by mouth in the morning. [facility] docusate (COLACE) 100 mg capsule 2023-0 2-03 00:00: 00 Yes [id number] 100mg Take 1 capsule by mouth in the morning. [facility] docusate (COLACE) 100 mg capsule 2023-0 2-03 00:00: 00 Yes [id number] 100mg Take 1 capsule by mouth in the morning. [facility] docusate (COLACE) 100 mg capsule 2023-0 2-03 00:00: 00 Yes [id number] 100mg Take 1 capsule by mouth in the morning. [facility] docusate (COLACE) 100 mg capsule 2023-0 2-03 00:00: 00 Yes [id number] 100mg Take 1 capsule by mouth in the morning. [facility] docusate (COLACE) 100 mg capsule 2023-0 2-03 00:00: 00 Yes [id number] 100mg Take 1 capsule by mouth in the morning. [facility] docusate (COLACE) 100 mg capsule 2023-0 2-03 00:00: 00 Yes [id number] 100mg Take 1 capsule by mouth in the morning. [facility] docusate (COLACE) 100 mg capsule 2023-0 2-03 00:00: 00 Yes [id number] 100mg Take 1 capsule by mouth in the morning. [facility] docusate (COLACE) 100 mg capsule 2023-0 2-03 00:00: 00 Yes [id number] 100mg Take 1 capsule by mouth in the morning. [facility] docusate (COLACE) 100 mg capsule 2023-0 2-03 00:00: 00 Yes [id number] 100mg Take 1 capsule by mouth in the morning. [facility] docusate (COLACE) 100 mg capsule 2023-0 2-03 00:00: 00 Yes [id number] 100mg Take 1 capsule by mouth in the morning. [facility] docusate (COLACE) 100 mg capsule 3-0 2-03 00:00: 00 Yes [id number] 100mg Take 1 capsule by mouth in the morning. [facility] capsule 2023-0 2-03 00:00: 00 Yes [id number] 100mg Take 1 capsule by mouth in the morning. [facility]COL[facility] 100 mg capsule 3-0 2-03 00:00: 00 Yes [id number] 100mg Take 1 capsule by mouth in the morning. [facility]COL[facility] 100 mg capsule 3-0 2-03 00:00: 00 Yes [id number] 100mg Take 1 capsule by mouth in the morning. [facility] docusate (COLACE) 100 mg capsule 3-0 2-03 00:00: 00 Yes [id number] 100mg Take 1 capsule by mouth in the morning. [facility]COL[facility] 100 mg capsule 3-0 2-03 00:00: 00 Yes [id number] 100mg Take 1 capsule by mouth in the morning. [facility] (COLACE[facility] 100 mg capsule 3-0 2-03 00:00: 00 Yes [id number] 100mg Take 1 capsule by mouth in the morning. [facility] (COLACE[facility] 100 mg capsule 3-0 2-03 00:00: 00 Yes [id number] 100mg Take 1 capsule by mouth in the morning. [facility] (COLACE[facility] 100 mg capsule 2023-0 2-03 00:00: 00 Yes [id number] 100mg Take 1 capsule by mouth in the morning. [facility] (COLACE[facility] 100 mg capsule 2023-0 2-03 00:00: 00 Yes [id number] 100mg Take 1 capsule by mouth in the morning. [facility]COLACE[facility] 100 mg capsule 2023-0 2-03 00:00: 00 Yes [id number] 100mg Take 1 capsule by mouth in the morning. [facility] docusate (COLACE) 100 mg capsule 3-0 2-03 00:00: 00 Yes [id number] 100mg Take 1 capsule by mouth in the morning. [facility] docusate (COLACE) 100 mg capsule 3-0 2-03 00:00: 00 Yes [id number] 100mg Take 1 capsule by mouth in the morning. [facility]COL[facility] 100 mg capsule 3-0 2-03 00:00: 00 Yes [id number] 100mg Take 1 capsule by mouth in the morning. [facility] docusate (COLACE) 100 mg capsule 3-0 2-03 00:00: 00 Yes [id number] 100mg Take 1 capsule by mouth in the morning. [facility] docusate (COLACE) 100 mg capsule 2023-0 2-03 00:00: 00 Yes [id number] 100mg Take 1 capsule by mouth in the morning. [facility] [facility] capsule 3-0 2-03 00:00: 00 Yes [id number] 100mg Take 1 capsule by mouth in the morning. [facility] docusate (COLACE) 100 mg capsule 3-0 2-03 00:00: 00 Yes [id number] 100mg Take 1 capsule by mouth in the morning. [facility] docusate (COLACE) 100 mg capsule 3-0 2-03 00:00: 00 Yes [id number] 100mg Take 1 capsule by mouth in the morning. [facility] docusate (COLACE) 100 mg capsule 3-0 2-03 00:00: 00 Yes [id number] 100mg Take 1 capsule by mouth in the morning. [facility] docusate (COLACE) 100 mg capsule 3-0 2-03 00:00: 00 Yes [id number] 100mg Take 1 capsule by mouth in the morning. [facility] docusate (COLACE) 100 mg capsule 2023-0 2-03 00:00: 00 Yes [id number] 100mg Take 1 capsule by mouth in the morning. [facility] docusate (COLACE) 100 mg capsule 3-0 2-03 00:00: 00 Yes [id number] 100mg Take 1 capsule by mouth in the morning. [facility] docusate (COLACE) 100 mg capsule 2023-0 2-03 00:00: 00 Yes [id number] 100mg Take 1 capsule by mouth in the morning. [facility] docusate (COLACE) 100 mg capsule 2023-0 2-03 00:00: 00 Yes [id number] 100mg Take 1 capsule by mouth in the morning. [facility] docusate (COLACE) 100 mg capsule 3-0 2-03 00:00: 00 11-03 00:00 :00 No [id number] 100mg Take 1 capsule by mouth in the morning. [facility] docusate (COLACE) 100 mg capsule 3-0 2-03 00:00: 00 11-03 00:00 :00 No [id number] 100mg Take 1 capsule by mouth in the morning. [facility] docusate (COLACE) 100 mg capsule 3-0 2-03 00:00: 00 11-03 00:00 :00 No [id number] 100mg Take 1 capsule by mouth in the morning. [facility] docusate (COLACE) 100 mg capsule 3-0 2-03 00:00: 00 11-03 00:00 :00 No [id number] 100mg Take 1 capsule by mouth in the morning. [facility] metoclopram delores HCl 10 mg tablet 3-0 1-23 00:00: 00 Yes 10mg Take 1 tablet by mouth 3 (three) times daily as needed for Nausea and Vomiting (N/V). [facility] metoclopram delores HCl 10 mg tablet 3-0 1-23 00:00: 00 Yes 10mg Take 1 tablet by mouth 3 (three) times daily as needed for Nausea and Vomiting (N/V). [facility] metoclopram delores HCl 10 mg tablet 3-0 1-23 00:00: 00 Yes 10mg Take 1 tablet by mouth 3 (three) times daily as needed for Nausea and Vomiting (N/V). [facility] metoclopram delores HCl 10 mg tablet 2022-0 04-12 00:00: 00 Yes 10mg Take 1 tablet by mouth 3 (three) times daily as needed for Nausea and Vomiting (N/V). [facility] metoclopram delores HCl 10 mg tablet 2022-0 04-12 00:00: 00 Yes 10mg Take 1 tablet by mouth 3 (three) times daily as needed for Nausea and Vomiting (N/V). [facility] metoclopram delores HCl 10 mg tablet 2022-0 04-12 00:00: 00 Yes 10mg Take 1 tablet by mouth 3 (three) times daily as needed for Nausea and Vomiting (N/V). [facility] metoclopram delores HCl 10 mg tablet 2022-0 04-12 00:00: 00 Yes 10mg Take 1 tablet by mouth 3 (three) times daily as needed for Nausea and Vomiting (N/V). [facility] metoclopram delores HCl 10 mg tablet 0 04-12 00:00: 00 Yes 10mg Take 1 tablet by mouth 3 (three) times daily as needed for Nausea and Vomiting (N/V). [facility] ondansetron 4 mg disintegrat ing tablet 0 04-12 00:00: 00 Yes DISSOLVE 1 TABLET UNDER TONGUE EVERY 4 TO 6 HOURS NEEDED FOR NAUSEA [facility] metoclopram delores HCl 10 mg tablet 2022-0 04-12 00:00: 00 Yes 10mg Take 1 tablet by mouth 3 (three) times daily as needed for Nausea and Vomiting (N/V). [facility] ondansetron 4 mg disintegrat ing tablet 2022-0 04-12 00:00: 00 Yes DISSOLVE 1 TABLET UNDER TONGUE EVERY 4 TO 6 HOURS NEEDED FOR NAUSEA [facility] metoclopram delores HCl 10 mg tablet 2022-0 04-12 00:00: 00 Yes 10mg Take 1 tablet by mouth 3 (three) times daily as needed for Nausea and Vomiting (N/V). [facility] ondansetron 4 mg disintegrat ing tablet 2022-0 04-12 00:00: 00 Yes DISSOLVE 1 TABLET UNDER TONGUE EVERY 4 TO 6 HOURS NEEDED FOR NAUSEA [facility] 10 mg tablet 2022-0 04-12 00:00: 00 Yes 10mg Take 1 tablet by mouth 3 (three) times daily as needed for Nausea and Vomiting (N/V). [facility] ondansetron 4 mg disintegrat ing tablet 0 04-12 00:00: 00 Yes DISSOLVE 1 TABLET UNDER TONGUE EVERY 4 TO 6 HOURS NEEDED FOR NAUSEA [facility] metoclopram delores HCl 10 mg tablet 2022-0 04-12 00:00: 00 Yes 10mg Take 1 tablet by mouth 3 (three) times daily as needed for Nausea and Vomiting (N/V). [facility] ondansetron 4 mg disintegrat ing tablet 0 04-12 00:00: 00 Yes DISSOLVE 1 TABLET UNDER TONGUE EVERY 4 TO 6 HOURS NEEDED FOR NAUSEA [facility] metoclopram delores HCl 10 mg tablet 2022-0 04-12 00:00: 00 Yes 10mg Take 1 tablet by mouth 3 (three) times daily as needed for Nausea and Vomiting (N/V). [facility] ondansetron 4 mg disintegrat ing tablet 0 04-12 00:00: 00 Yes DISSOLVE 1 TABLET UNDER TONGUE EVERY 4 TO 6 HOURS NEEDED FOR NAUSEA [facility] metoclopram delores HCl 10 mg tablet 2022-0 04-12 00:00: 00 Yes 10mg Take 1 tablet by mouth 3 (three) times daily as needed for Nausea and Vomiting (N/V). [facility] ondansetron 4 mg disintegrat ing tablet 2022-0 04-12 00:00: 00 Yes DISSOLVE 1 TABLET UNDER TONGUE EVERY 4 TO 6 HOURS NEEDED FOR NAUSEA [facility] metoclopram delores HCl 10 mg tablet 2022-0 04-12 00:00: 00 Yes 10mg Take 1 tablet by mouth 3 (three) times daily as needed for Nausea and Vomiting (N/V). [facility] ondansetron 4 mg disintegrat ing tablet 2022-0 04-12 00:00: 00 Yes DISSOLVE 1 TABLET UNDER TONGUE EVERY 4 TO 6 HOURS NEEDED FOR NAUSEA [facility] metoclopram delores HCl 10 mg tablet 3-0 04-12 00:00: 00 Yes 10mg Take 1 tablet by mouth 3 (three) times daily as needed for Nausea and Vomiting (N/V). [facility] ondansetron 4 mg disintegrat ing tablet 2022-0 04-12 00:00: 00 Yes DISSOLVE 1 TABLET UNDER TONGUE EVERY 4 TO 6 HOURS NEEDED FOR NAUSEA [facility] metoclopram delores HCl 10 mg tablet 2022-0 04-12 00:00: 00 Yes 10mg Take 1 tablet by mouth 3 (three) times daily as needed for Nausea and Vomiting (N/V). [facility] ondansetron 4 mg disintegrat ing tablet 2022-0 04-12 00:00: 00 Yes DISSOLVE 1 TABLET UNDER TONGUE EVERY 4 TO 6 HOURS NEEDED FOR NAUSEA [facility] metoclopram delores HCl 10 mg tablet 3-0 04-12 00:00: 00 Yes 10mg Take 1 tablet by mouth 3 (three) times daily as needed for Nausea and Vomiting (N/V). [facility] metoclopram delores HCl 10 mg tablet 2022-0 04-12 00:00: 00 Yes 10mg Take 1 tablet by mouth 3 (three) times daily as needed for Nausea and Vomiting (N/V). [facility] metoclopram delores HCl 10 mg tablet 3-0 04-12 00:00: 00 Yes 10mg Take 1 tablet by mouth 3 (three) times daily as needed for Nausea and Vomiting (N/V). [facility] metoclopram delores HCl 10 mg tablet 3-0 04-12 00:00: 00 Yes 10mg Take 1 tablet by mouth 3 (three) times daily as needed for Nausea and Vomiting (N/V). [facility] metoclopram delores HCl 10 mg tablet 3-0 04-12 00:00: 00 Yes 10mg Take 1 tablet by mouth 3 (three) times daily as needed for Nausea and Vomiting (N/V). [facility] metoclopram delores HCl 10 mg tablet 3-0 04-12 00:00: 00 Yes 10mg Take 1 tablet by mouth 3 (three) times daily as needed for Nausea and Vomiting (N/V). [facility] metoclopram delores HCl 10 mg tablet 04-12 00:00: 00 Yes 10mg Take 1 tablet by mouth 3 (three) times daily as needed for Nausea and Vomiting (N/V). [facility] metoclopram delores HCl 10 mg tablet 04-12 00:00: 00 07-23 00:00 :00 No 10mg Take 1 tablet by mouth 3 (three) times daily as needed for Nausea and Vomiting (N/V). [facility] ondansetron 4 mg disintegrat ing tablet 04-12 00:00: 00 06-18 00:00 :00 No DISSOLVE 1 TABLET UNDER TONGUE EVERY 4 TO 6 HOURS NEEDED FOR NAUSEA [facility] proMETHazin e (PHENERGAN) tablet 25 mg 04-09 13:53: 09 Yes 25mg 25 mg, Oral, Q4HPRN, Starting on Tue04/09/22 at 0753, Until Discontinu ed, Routine, Nausea and Vomiting (N/V) [facility] proMETHazin e (PHENERGAN) 25 mg in NaCl 0.9% (NS) 50 mL IV piggyback 04-09 03:42: 49 04-09 13:55 :16 No 25mg 25 mg, IV Piggyback, Q4HPRN, Starting on Tue04/08/22 at 2142, Until Tue04/09/22 at 0755, Routine, Nausea and Vomiting (N/V) [facility] [id number] IV infusion 1,000 mL 04-09 01:00: 00 Yes 1000mL at 200 mL/hr, IV Infusion, CONTINUOUS , Starting on Tue04/08/22 at 1900, Until Discontinu ed, Routine [facility] pyridoxine, VITAMIN B-6, (VITAMIN B-6) 25 mg tablet 04-09 00:00: 00 Yes [id number] 25mg Take 1 tablet by mouth every 6 (six) hours as needed for Nausea and Vomiting (N/V). [facility] proMETHazin e 25 mg tablet 04-09 00:00: 00 Yes [id number] 25mg Take 1 tablet by mouth every 4 (four) hours as needed for Nausea and Vomiting (N/V). [facility] proMETHazin e 25 mg suppository 04-09 00:00: 00 Yes [id number] 25mg Insert 1 Suppositor y into rectum every 4 (four) hours as needed for N/V unresponsi ve to oral antiemetic s. [facility] pyridoxine, VITAMIN B-6, (VITAMIN B-6) 25 mg tablet 04-09 00:00: 00 Yes [id number] 25mg Take 1 tablet by mouth every 6 (six) hours as needed for Nausea and Vomiting (N/V). [facility] proMETHazin e 25 mg tablet 04-09 00:00: 00 Yes [id number] 25mg Take 1 tablet by mouth every 4 (four) hours as needed for Nausea and Vomiting (N/V). [facility] proMETHazin e 25 mg suppository 04-09 00:00: 00 Yes [id number] 25mg Insert 1 Suppositor y into rectum every 4 (four) hours as needed for N/V unresponsi ve to oral antiemetic s. [facility] pyridoxine, VITAMIN B-6, (VITAMIN B-6) 25 mg tablet 04-09 00:00: 00 Yes [id number] 25mg Take 1 tablet by mouth every 6 (six) hours as needed for Nausea and Vomiting (N/V). [facility] proMETHazin e 25 mg tablet 04-09 00:00: 00 Yes [id number] 25mg Take 1 tablet by mouth every 4 (four) hours as needed for Nausea and Vomiting (N/V). [facility] proMETHazin e 25 mg suppository 04-09 00:00: 00 Yes [id number] 25mg Insert 1 Suppositor y into rectum every 4 (four) hours as needed for N/V unresponsi ve to oral antiemetic s. [facility] pyridoxine, VITAMIN B-6, (VITAMIN B-6) 25 mg tablet 04-09 00:00: 00 Yes [id number] 25mg Take 1 tablet by mouth every 6 (six) hours as needed for Nausea and Vomiting (N/V). [facility] proMETHazin e 25 mg tablet 04-09 00:00: 00 Yes [id number] 25mg Take 1 tablet by mouth every 4 (four) hours as needed for Nausea and Vomiting (N/V). [facility] proMETHazin e 25 mg suppository 04-09 00:00: 00 Yes [id number] 25mg Insert 1 Suppositor y into rectum every 4 (four) hours as needed for N/V unresponsi ve to oral antiemetic s. [facility] pyridoxine, VITAMIN B-6, (VITAMIN B-6) 25 mg tablet 04-09 00:00: 00 Yes [id number] 25mg Take 1 tablet by mouth every 6 (six) hours as needed for Nausea and Vomiting (N/V). [facility] proMETHazin e 25 mg tablet 04-09 00:00: 00 Yes [id number] 25mg Take 1 tablet by mouth every 4 (four) hours as needed for Nausea and Vomiting (N/V). [facility] proMETHazin e 25 mg suppository 04-09 00:00: 00 Yes [id number] 25mg Insert 1 Suppositor y into rectum every 4 (four) hours as needed for N/V unresponsi ve to oral antiemetic s. [facility] pyridoxine, VITAMIN B-6, (VITAMIN B-6) 25 mg tablet 04-09 00:00: 00 Yes [id number] 25mg Take 1 tablet by mouth every 6 (six) hours as needed for Nausea and Vomiting (N/V). [facility] proMETHazin e 25 mg tablet 04-09 00:00: 00 Yes [id number] 25mg Take 1 tablet by mouth every 4 (four) hours as needed for Nausea and Vomiting (N/V). [facility] proMETHazin e 25 mg suppository 04-09 00:00: 00 Yes [id number] 25mg Insert 1 Suppositor y into rectum every 4 (four) hours as needed for N/V unresponsi ve to oral antiemetic s. [facility] pyridoxine, VITAMIN B-6, (VITAMIN B-6) 25 mg tablet 04-09 00:00: 00 Yes [id number] 25mg Take 1 tablet by mouth every 6 (six) hours as needed for Nausea and Vomiting (N/V). [facility] proMETHazin e 25 mg tablet 04-09 00:00: 00 Yes [id number] 25mg Take 1 tablet by mouth every 4 (four) hours as needed for Nausea and Vomiting (N/V). [facility] proMETHazin e 25 mg suppository 04-09 00:00: 00 Yes [id number] 25mg Insert 1 Suppositor y into rectum every 4 (four) hours as needed for N/V unresponsi ve to oral antiemetic s. [facility] pyridoxine, VITAMIN B-6, (VITAMIN B-6) 25 mg tablet 04-09 00:00: 00 Yes [id number] 25mg Take 1 tablet by mouth every 6 (six) hours as needed for Nausea and Vomiting (N/V). [facility] proMETHazin e 25 mg tablet 04-09 00:00: 00 Yes [id number] 25mg Take 1 tablet by mouth every 4 (four) hours as needed for Nausea and Vomiting (N/V). [facility] proMETHazin e 25 mg suppository 04-09 00:00: 00 Yes [id number] 25mg Insert 1 Suppositor y into rectum every 4 (four) hours as needed for N/V unresponsi ve to oral antiemetic s. [facility] pyridoxine, VITAMIN B-6, (VITAMIN B-6) 25 mg tablet 04-09 00:00: 00 Yes [id number] 25mg Take 1 tablet by mouth every 6 (six) hours as needed for Nausea and Vomiting (N/V). [facility] proMETHazin e 25 mg tablet 04-09 00:00: 00 Yes [id number] 25mg Take 1 tablet by mouth every 4 (four) hours as needed for Nausea and Vomiting (N/V). [facility] proMETHazin e 25 mg suppository 04-09 00:00: 00 Yes [id number] 25mg Insert 1 Suppositor y into rectum every 4 (four) hours as needed for N/V unresponsi ve to oral antiemetic s. [facility] pyridoxine, VITAMIN B-6, (VITAMIN B-6) 25 mg tablet 04-09 00:00: 00 Yes [id number] 25mg Take 1 tablet by mouth every 6 (six) hours as needed for Nausea and Vomiting (N/V). [facility] proMETHazin e 25 mg tablet 04-09 00:00: 00 Yes [id number] 25mg Take 1 tablet by mouth every 4 (four) hours as needed for Nausea and Vomiting (N/V). [facility] proMETHazin e 25 mg suppository 04-09 00:00: 00 Yes [id number] 25mg Insert 1 Suppositor y into rectum every 4 (four) hours as needed for N/V unresponsi ve to oral antiemetic s. [facility] proMETHazin e 25 mg tablet 04-09 00:00: 00 05-04 00:00 :00 No [id number] 25mg Take 1 tablet by mouth every 4 (four) hours as needed for Nausea and Vomiting (N/V). [facility] proMETHazin e 25 mg suppository 04-09 00:00: 00 05-04 00:00 :00 No [id number] 25mg Insert 1 Suppositor y into rectum every 4 (four) hours as needed for N/V unresponsi ve to oral antiemetic s. [facility] pyridoxine, VITAMIN B-6, (VITAMIN B-6) 25 mg tablet 04-09 00:00: 00 05-04 00:00 :00 No [id number] 25mg Take 1 tablet by mouth every 6 (six) hours as needed for Nausea and Vomiting (N/V). [facility] NaCl 0.9% (NS) IV infusion 1,000 mL 04-08 22:45: 00 04-08 21:56 :00 No 1000mL at 999 mL/hr, Intravenou s, ONCE, 1 dose, On Tue04/08/22 at 1645, [facility] acetaminoph en (TYLENOL) tablet 650 mg 04-08 21:15: 00 04-08 21:04 :00 No 650mg 650 mg, Oral, ONCE, 1 dose, On Tue04/08/22 at 1515, [facility] proCHLORper azine (COMPAZINE) 10 mg in NaCl 0.9% (NS) piggyback 04-08 18:59: 00 04-09 14:01 :59 No 10mg 10 mg, IV Piggyback, at 100 mL/hr Administer over 30 Minutes, Q6HPRN, Starting on Tue04/08/22 at 1259, Until Tue04/09/22 at 0801, Routine, Nausea and Vomiting (N/V) [facility] NaCl 0.9% (NS) bolus infusion 1,000 mL 04-08 18:45: 00 04-08 19:11 :00 No 1000mL at 999 mL/hr, 1,000 mL, IV Infusion, ONCE, 1 dose, On Tue04/08/22 at 1245, [facility] proMETHazin e (PHENERGAN) 25 mg in NaCl 0.9% (NS) 50 mL IV piggyback 04-08 18:00: 00 04-08 18:05 :00 No 25mg 25 mg, IV Piggyback, ONCE, 1 dose, On Tue04/08/22 at 1200, [facility] SELECT-OB + DHA 29 mg iron-1 mg -250 mg combo pack 04-06 00:00: 00 Yes 1 PACKET BY MOUTH EVERY DAY [facility] SELECT-OB + DHA 29 mg iron-1 mg -250 mg combo pack 0 04-06 00:00: 00 Yes 1 PACKET BY MOUTH EVERY DAY [facility] SELECT-OB + DHA 29 mg iron-1 mg -250 mg combo pack 0 04-06 00:00: 00 Yes 1 PACKET BY MOUTH EVERY DAY [facility] SELECT-OB + DHA 29 mg iron-1 mg -250 mg combo pack 0 04-06 00:00: 00 Yes 1 PACKET BY MOUTH EVERY DAY [facility] SELECT-OB + DHA 29 mg iron-1 mg -250 mg combo pack 0 04-06 00:00: 00 Yes 1 PACKET BY MOUTH EVERY DAY [facility] SELECT-OB + DHA 29 mg iron-1 mg -250 mg combo pack 0 04-06 00:00: 00 Yes 1 PACKET BY MOUTH EVERY DAY [facility] SELECT-OB + DHA 29 mg iron-1 mg -250 mg combo pack 0 04-06 00:00: 00 Yes 1 PACKET BY MOUTH EVERY DAY [facility] SELECT-OB + DHA 29 mg iron-1 mg -250 mg combo pack 0 04-06 00:00: 00 Yes 1 PACKET BY MOUTH EVERY DAY [facility] SELECT-OB + DHA 29 mg iron-1 mg -250 mg combo pack 0 04-06 00:00: 00 Yes 1 PACKET BY MOUTH EVERY DAY [facility] SELECT-OB + DHA 29 mg iron-1 mg -250 mg combo pack 0 04-06 00:00: 00 Yes 1 PACKET BY MOUTH EVERY DAY [facility] SELECT-OB + DHA 29 mg iron-1 mg -250 mg combo pack 0 04-06 00:00: 00 06-18 00:00 :00 No 1 PACKET BY MOUTH EVERY DAY [facility] proMETHazin e 25 mg tablet 2016-03 00:00: 00 Yes [id number] 25mg Take 1 tablet by mouth every 6 (six) hours as needed for Nausea and Vomiting (N/V) (q4-6 hr prn N/V). [facility] proMETHazin e 25 mg tablet 2016-03 012 00:00: 00 Yes [id number] 25mg Take 1 tablet by mouth every 6 (six) hours as needed for Nausea and Vomiting (N/V) (q4-6 hr prn N/V). [facility] proMETHazin e 25 mg tablet 2016-03 00:00: 00 04-13 00:00 :00 No [id number] 25mg Take 1 tablet by mouth every 6 (six) hours as needed for Nausea and Vomiting (N/V) (q4-6 hr prn N/V). [facility] [id number] 3-dha-epa-f jessica oil ( GUMMY) 400 mcg-35 mg -25 mg-5 mg Chew 12-02 00:00: 00 Yes [id number] 1{tbl} Take 1 tablet by mouth daily. She may have any brand covered by her insurance. [facility] [id number] 3-dha-epa-f jessica oil ( GUMMY) 400 mcg-35 mg -25 mg-5 mg Chew 12-02 00:00: 00 Yes [id number] 1{tbl} Take 1 tablet by mouth daily. She may have any brand covered by her insurance. [facility] [id number] 3-dha-epa-f jessica oil ( GUMMY) 400 mcg-35 mg -25 mg-5 mg Chew 12-02 00:00: 00 Yes [id number] 1{tbl} Take 1 tablet by mouth daily. She may have any brand covered by her insurance. [facility] [id number] 3-dha-epa-f jessica oil ( GUMMY) 400 mcg-35 mg -25 mg-5 mg Chew 12-02 00:00: 00 Yes [id number] 1{tbl} Take 1 tablet by mouth daily. She may have any brand covered by her insurance. [facility] [id number] 3-dha-epa-f jessica oil ( GUMMY) 400 mcg-35 mg -25 mg-5 mg Chew 12-02 00:00: 00 Yes [id number] 1{tbl} Take 1 tablet by mouth daily. She may have any brand covered by her insurance. [facility] [id number] 3-dha-epa-f jessica oil ( GUMMY) 400 mcg-35 mg -25 mg-5 mg Chew 12-02 00:00: 00 Yes [id number] 1{tbl} Take 1 tablet by mouth daily. She may have any brand covered by her insurance. [facility] [id number] 3-dha-epa-f jessica oil ( GUMMY) 400 mcg-35 mg -25 mg-5 mg Chew 12-02 00:00: 00 Yes [id number] 1{tbl} Take 1 tablet by mouth daily. She may have any brand covered by her insurance. [facility] [id number] 3-dha-epa-f jessica oil ( GUMMY) 400 mcg-35 mg -25 mg-5 mg Chew 12-02 00:00: 00 Yes [id number] 1{tbl} Take 1 tablet by mouth daily. She may have any brand covered by her insurance. [facility] [id number] 3-dha-epa-f jessica oil ( GUMMY) 400 mcg-35 mg -25 mg-5 mg Chew 12-02 00:00: 00 Yes [id number] 1{tbl} Take 1 tablet by mouth daily. She may have any brand covered by her insurance. [facility] [id number] 3-dha-epa-f jessica oil ( GUMMY) 400 mcg-35 mg -25 mg-5 mg Chew 12-02 00:00: 00 Yes [id number] 1{tbl} Take 1 tablet by mouth daily. She may have any brand covered by her insurance. [facility] [id number] 3-dha-epa-f jessica oil ( GUMMY) 400 mcg-35 mg -25 mg-5 mg Chew 12-02 00:00: 00 Yes [id number] 1{tbl} Take 1 tablet by mouth daily. She may have any brand covered by her insurance. [facility] [id number] 3-dha-epa-f jessica oil ( GUMMY) 400 mcg-35 mg -25 mg-5 mg Chew 12-02 00:00: 00 Yes [id number] 1{tbl} Take 1 tablet by mouth daily. She may have any brand covered by her insurance. [facility] [id number] 3-dha-epa-f jessica oil ( GUMMY) 400 mcg-35 mg -25 mg-5 mg Chew 12-02 00:00: 00 Yes [id number] 1{tbl} Take 1 tablet by mouth daily. She may have any brand covered by her insurance. [facility] [id number] 3-dha-epa-f jessica oil ( GUMMY) 400 mcg-35 mg -25 mg-5 mg Chew 12-02 00:00: 00 Yes [id number] 1{tbl} Take 1 tablet by mouth daily. She may have any brand covered by her insurance. [facility] [id number] 3-dha-epa-f jessica oil ( GUMMY) 400 mcg-35 mg -25 mg-5 mg Chew 12-02 00:00: 00 Yes [id number] 1{tbl} Take 1 tablet by mouth daily. She may have any brand covered by her insurance. [facility] [id number] 3-dha-epa-f jessica oil ( GUMMY) 400 mcg-35 mg -25 mg-5 mg Chew 12-02 00:00: 00 Yes [id number] 1{tbl} Take 1 tablet by mouth daily. She may have any brand covered by her insurance. [facility] [id number] 3-dha-epa-f jessica oil ( GUMMY) 400 mcg-35 mg -25 mg-5 mg Chew 12-02 00:00: 00 Yes [id number] 1{tbl} Take 1 tablet by mouth daily. She may have any brand covered by her insurance. [facility] [id number] 3-dha-epa-f jessica oil ( GUMMY) 400 mcg-35 mg -25 mg-5 mg Chew 12-02 00:00: 00 Yes [id number] 1{tbl} Take 1 tablet by mouth daily. She may have any brand covered by her insurance. [facility] [id number] 3-dha-epa-f jessica oil ( GUMMY) 400 mcg-35 mg -25 mg-5 mg Chew 12-02 00:00: 00 Yes [id number] 1{tbl} Take 1 tablet by mouth daily. She may have any brand covered by her insurance. [facility] [id number] 3-dha-epa-f jessica oil ( GUMMY) 400 mcg-35 mg -25 mg-5 mg Chew 12-02 00:00: 00 Yes [id number] 1{tbl} Take 1 tablet by mouth daily. She may have any brand covered by her insurance. [facility] [id number] 3-dha-epa-f jessica oil ( GUMMY) 400 mcg-35 mg -25 mg-5 mg Chew 12-02 00:00: 00 Yes [id number] 1{tbl} Take 1 tablet by mouth daily. She may have any brand covered by her insurance. [facility] [id number] 3-dha-epa-f jessica oil ( GUMMY) 400 mcg-35 mg -25 mg-5 mg Chew 12-02 00:00: 00 Yes [id number] 1{tbl} Take 1 tablet by mouth daily. She may have any brand covered by her insurance. [facility] [id number] 3-dha-epa-f jessica oil ( GUMMY) 400 mcg-35 mg -25 mg-5 mg Chew 12-02 00:00: 00 Yes [id number] 1{tbl} Take 1 tablet by mouth daily. She may have any brand covered by her insurance. [facility] [id number] 3-dha-epa-f jessica oil ( GUMMY) 400 mcg-35 mg -25 mg-5 mg Chew 12-02 00:00: 00 Yes [id number] 1{tbl} Take 1 tablet by mouth daily. She may have any brand covered by her insurance. [facility] [id number] 3-dha-epa-f jessica oil ( GUMMY) 400 mcg-35 mg -25 mg-5 mg Chew 12-02 00:00: 00 Yes [id number] 1{tbl} Take 1 tablet by mouth daily. She may have any brand covered by her insurance. [facility] [id number]-VU-gu 3-dha-epa-f jessica oil ( GUMMY) 400 mcg-35 mg -25 mg-5 mg Chew 12-02 00:00: 00 Yes [id number] 1{tbl} Take 1 tablet by mouth daily. She may have any brand covered by her insurance. [facility] [id number]-SE-mp 3-dha-epa-f jessica oil ( GUMMY) 400 mcg-35 mg -25 mg-5 mg Chew 12-02 00:00: 00 Yes [id number] 1{tbl} Take 1 tablet by mouth daily. She may have any brand covered by her insurance. [facility] [id number]-PH-sv 3-dha-epa-f jessica oil ( GUMMY) 400 mcg-35 mg -25 mg-5 mg Chew 12-02 00:00: 00 Yes [id number] 1{tbl} Take 1 tablet by mouth daily. She may have any brand covered by her insurance. [facility] [id number]-WE-be 3-dha-epa-f jessica oil ( GUMMY) 400 mcg-35 mg -25 mg-5 mg Chew 12-02 00:00: 00 Yes [id number] 1{tbl} Take 1 tablet by mouth daily. She may have any brand covered by her insurance. [facility] [id number]-LW-lt 3-dha-epa-f jessica oil ( GUMMY) 400 mcg-35 mg -25 mg-5 mg Chew 12-02 00:00: 00 Yes [id number] 1{tbl} Take 1 tablet by mouth daily. She may have any brand covered by her insurance. [facility] [id number]-SZ-gc 3-dha-epa-f jessica oil ( GUMMY) 400 mcg-35 mg -25 mg-5 mg Chew 14 00:00: 00 Yes [id number] 1{tbl} Take 1 tablet by mouth daily. She may have any brand covered by her insurance. [facility] [id number]-SD-bl 3-dha-epa-f jessica oil ( GUMMY) 400 mcg-35 mg -25 mg-5 mg Chew 12-02 00:00: 00 Yes [id number] 1{tbl} Take 1 tablet by mouth daily. She may have any brand covered by her insurance. [facility] [id number]-AY-yv 3-dha-epa-f jessica oil ( GUMMY) 400 mcg-35 mg -25 mg-5 mg Chew 12-02 00:00: 00 Yes [id number] 1{tbl} Take 1 tablet by mouth daily. She may have any brand covered by her insurance. [facility] [id number]-SF-iq 3-dha-epa-f jessica oil ( GUMMY) 400 mcg-35 mg -25 mg-5 mg Chew 12-02 00:00: 00 Yes [id number] 1{tbl} Take 1 tablet by mouth daily. She may have any brand covered by her insurance. [facility] [id number]-IA-rk 3-dha-epa-f jessica oil ( GUMMY) 400 mcg-35 mg -25 mg-5 mg Chew 12-02 00:00: 00 Yes [id number] 1{tbl} Take 1 tablet by mouth daily. She may have any brand covered by her insurance. [facility] [id number]-QX-fl 3-dha-epa-f jessica oil ( GUMMY) 400 mcg-35 mg -25 mg-5 mg Chew 12-02 00:00: 00 Yes [id number] 1{tbl} Take 1 tablet by mouth daily. She may have any brand covered by her insurance. [facility] [id number]-HS-rq 3-dha-epa-f jessica oil ( GUMMY) 400 mcg-35 mg -25 mg-5 mg Chew 12-02 00:00: 00 Yes [id number] 1{tbl} Take 1 tablet by mouth daily. She may have any brand covered by her insurance. [facility] [id number]-QP-uj 3-dha-epa-f jessica oil ( GUMMY) 400 mcg-35 mg -25 mg-5 mg Chew 12-02 00:00: 00 Yes [id number] 1{tbl} Take 1 tablet by mouth daily. She may have any brand covered by her insurance. [facility] [id number]-PQ-wl 3-dha-epa-f jessica oil ( GUMMY) 400 mcg-35 mg -25 mg-5 mg Chew 12-02 00:00: 00 Yes [id number] 1{tbl} Take 1 tablet by mouth daily. She may have any brand covered by her insurance. [facility] [id number]-KK-fp 3-dha-epa-f jessica oil ( GUMMY) 400 mcg-35 mg -25 mg-5 mg Chew 12-02 00:00: 00 Yes [id number] 1{tbl} Take 1 tablet by mouth daily. She may have any brand covered by her insurance. [facility] [id number]-RM-ng 3-dha-epa-f jessica oil ( GUMMY) 400 mcg-35 mg -25 mg-5 mg Chew 12-02 00:00: 00 Yes [id number] 1{tbl} Take 1 tablet by mouth daily. She may have any brand covered by her insurance. [facility] [id number]-QT-nw 3-dha-epa-f jessica oil ( GUMMY) 400 mcg-35 mg -25 mg-5 mg Chew 12-02 00:00: 00 Yes [id number] 1{tbl} Take 1 tablet by mouth daily. She may have any brand covered by her insurance. [facility] [id number]-XA-xw 3-dha-epa-f jessica oil ( GUMMY) 400 mcg-35 mg -25 mg-5 mg Chew 12-02 00:00: 00 Yes [id number] 1{tbl} Take 1 tablet by mouth daily. She may have any brand covered by her insurance. [facility] [id number]-OL-aq 3-dha-epa-f jessica oil ( GUMMY) 400 mcg-35 mg -25 mg-5 mg Chew -14 00:00: 00 Yes [id number] 1{tbl} Take 1 tablet by mouth daily. She may have any brand covered by her insurance. [facility] [id number]-SM-ed 3-dha-epa-f jessica oil ( GUMMY) 400 mcg-35 mg -25 mg-5 mg Chew 12-02 00:00: 00 Yes [id number] 1{tbl} Take 1 tablet by mouth daily. She may have any brand covered by her insurance. [facility] [id number]-NA-nk 3-dha-epa-f jessica oil ( GUMMY) 400 mcg-35 mg -25 mg-5 mg Chew 12-02 00:00: 00 Yes [id number] 1{tbl} Take 1 tablet by mouth daily. She may have any brand covered by her insurance. [facility] [id number]-PX-ij 3-dha-epa-f jessica oil ( GUMMY) 400 mcg-35 mg -25 mg-5 mg Chew 12-02 00:00: 00 Yes [id number] 1{tbl} Take 1 tablet by mouth daily. She may have any brand covered by her insurance. [facility] [id number]-TE-cl 3-dha-epa-f jessica oil ( GUMMY) 400 mcg-35 mg -25 mg-5 mg Chew 2016-12-02 00:00: 00 Yes [id number] 1{tbl} Take 1 tablet by mouth daily. She may have any brand covered by her insurance. [facility] [id number]-RW-qd 3-dha-epa-f jessica oil ( GUMMY) 400 mcg-35 mg -25 mg-5 mg Chew 12-02 00:00: 00 Yes [id number] 1{tbl} Take 1 tablet by mouth daily. She may have any brand covered by her insurance. [facility] [id number]-EC-id 3-dha-epa-f jessica oil ( GUMMY) 400 mcg-35 mg -25 mg-5 mg Chew 12-02 00:00: 00 Yes [id number] 1{tbl} Take 1 tablet by mouth daily. She may have any brand covered by her insurance. [facility] [id number]-AF-ae 3-dha-epa-f jessica oil ( GUMMY) 400 mcg-35 mg -25 mg-5 mg Chew 2016-12-02 00:00: 00 Yes [id number] 1{tbl} Take 1 tablet by mouth daily. She may have any brand covered by her insurance. [facility] [id number]-GX-ag 3-dha-epa-f jessica oil ( GUMMY) 400 mcg-35 mg -25 mg-5 mg Chew 12-02 00:00: 00 Yes [id number] 1{tbl} Take 1 tablet by mouth daily. She may have any brand covered by her insurance. [facility] [id number]-KZ-dc 3-dha-epa-f jessica oil ( GUMMY) 400 mcg-35 mg -25 mg-5 mg Chew 12-02 00:00: 00 Yes [id number] 1{tbl} Take 1 tablet by mouth daily. She may have any brand covered by her insurance. [facility] [id number]-SW-qj 3-dha-epa-f jessica oil ( GUMMY) 400 mcg-35 mg -25 mg-5 mg Chew 12-02 00:00: 00 Yes [id number] 1{tbl} Take 1 tablet by mouth daily. She may have any brand covered by her insurance. [facility] [id number]-TT-bj 3-dha-epa-f jessica oil ( GUMMY) 400 mcg-35 mg -25 mg-5 mg Chew 12-02 00:00: 00 Yes [id number] 1{tbl} Take 1 tablet by mouth daily. She may have any brand covered by her insurance. [facility] [id number]-OU-zr 3-dha-epa-f jessica oil ( GUMMY) 400 mcg-35 mg -25 mg-5 mg Chew 12-02 00:00: 00 Yes [id number] 1{tbl} Take 1 tablet by mouth daily. She may have any brand covered by her insurance. [facility] [id number]-FP-tl 3-dha-epa-f jessica oil ( GUMMY) 400 mcg-35 mg -25 mg-5 mg Chew 12-02 00:00: 00 Yes [id number] 1{tbl} Take 1 tablet by mouth daily. She may have any brand covered by her insurance. [facility] [id number]-NK-zy 3-dha-epa-f jessica oil ( GUMMY) 400 mcg-35 mg -25 mg-5 mg Chew 12-02 00:00: 00 11-03 00:00 :00 No [id number] 1{tbl} Take 1 tablet by mouth daily. She may have any brand covered by her insurance. [facility] [id number]-NM-jm 3-dha-epa-f jessica oil ( GUMMY) 400 mcg-35 mg -25 mg-5 mg Chew 12-02 00:00: 00 11-03 00:00 :00 No [id number] 1{tbl} Take 1 tablet by mouth daily. She may have any brand covered by her insurance. [facility] [id number]-WG-oi 3-dha-epa-f jessica oil ( GUMMY) 400 mcg-35 mg -25 mg-5 mg Chew 12-02 00:00: 00 11-03 00:00 :00 No [id number] 1{tbl} Take 1 tablet by mouth daily. She may have any brand covered by her insurance. [facility] [id number]-ZH-ov 3-dha-epa-f jessica oil ( GUMMY) 400 mcg-35 mg -25 mg-5 mg Chew 12-02 00:00: 00 11-03 00:00 :00 No [id number] 1{tbl} Take 1 tablet by mouth daily. She may have any brand covered by her insurance. [facility] Vital Signs Vital Name Observation Time Observation Value Comments S harry Systolic blood pressure 2022-11-11 16:21:00 127 mm[Hg] [facility] Diastolic blood pressure 2022-11-11 16:21:00 90 mm[Hg] [facility] Heart rate 2022-11-11 16:21:00 92 /min [facility] hospital Respiratory rate 2022-11-11 16:21:00 18 /min [facility] Body height 2022-11-11 16:21:00 162.6 cm [facility] Body weight 2022-11-11 16:21:00 80.74 kg [facility] BMI 2022-11-11 16:21:00 30.55 kg/m2 [facility] Systolic blood pressure 2022-11-04 12:15:00 131 mm[Hg] [facility] Diastolic blood pressure 2022-11-04 12:15:00 79 mm[Hg] [facility] Body temperature 2022-11-04 12:15:00 36.5 Marlin [facility] Respiratory rate 2022-11-04 12:15:00 16 /min [facility] Heart rate 2022-11-04 08:04:00 78 /min [facility] Oxygen saturation in Arterial blood by Pulse oximetry 2022-11-04 08:04:00 99 /min [facility] Systolic blood pressure 2022-11-03 00:30:00 130 mm[Hg] [facility] Diastolic blood pressure 2022-11-03 00:30:00 81 mm[Hg] [facility] Heart rate 2022-11-03 00:30:00 112 /min [facility] Body temperature 2022-11-03 00:30:00 36.78 Marlin [facility] Respiratory rate 2022-11-03 00:30:00 17 /min [facility] Oxygen saturation in Arterial blood by Pulse oximetry 2022-11-03 00:30:00 99 /min [facility] Heart rate 2022-10-30 13:45:00 72 /min [facility] Oxygen saturation in Arterial blood by Pulse oximetry 2022-10-30 13:45:00 99 /min [facility] Systolic blood pressure 2022-10-30 13:35:00 137 mm[Hg] [facility] Diastolic blood pressure 2022-10-30 13:35:00 90 mm[Hg] [facility] Body temperature 2022-10-30 12:45:00 36.5 Marlin [facility] Respiratory rate 2022-10-30 12:45:00 18 /min [facility] Body height 2022-10-30 04:00:00 154.9 cm [facility] Body weight 2022-10-30 04:00:00 87.544 kg [facility] BMI 2022-10-30 04:00:00 36.49 kg/m2 [facility] Systolic blood pressure 2022-10-29 18:18:00 122 mm[Hg] [facility] Diastolic blood pressure 2022-10-29 18:18:00 79 mm[Hg] [facility] Heart rate 2022-10-29 18:17:00 89 /min [facility] Body height 2022-10-29 18:17:00 154.9 cm [facility] Body weight 2022-10-29 18:17:00 87.998 kg [facility] BMI 2022-10-29 18:17:00 36.66 kg/m2 [facility] Heart rate 2022-10-28 21:09:00 88 /min [facility] Body temperature 2022-10-28 21:09:00 36.67 Marlin [facility] Respiratory rate 2022-10-28 21:09:00 18 /min [facility] Body height 2022-10-28 21:09:00 154.9 cm [facility] Body weight 2022-10-28 21:09:00 85.73 kg [facility] BMI 2022-10-28 21:09:00 35.71 kg/m2 [facility] Oxygen saturation in Arterial blood by Pulse oximetry 2022-10-28 21:09:00 100 /min [facility] Systolic blood pressure 2022-10-28 21:09:00 109 mm[Hg] [facility] Diastolic blood pressure 2022-10-28 21:09:00 66 mm[Hg] [facility] Systolic blood pressure 2022-10-27 22:30:00 139 mm[Hg] [facility] Diastolic blood pressure 2022-10-27 22:30:00 88 mm[Hg] [facility] Heart rate 2022-10-27 22:30:00 103 /min [facility] Body temperature 2022-10-27 22:30:00 36.67 Marlin [facility] Respiratory rate 2022-10-27 22:30:00 20 /min [facility] Oxygen saturation in Arterial blood by Pulse oximetry 2022-10-27 21:00:00 100 /min [facility] Body height 2022-10-27 17:30:00 154.9 cm [facility] Body weight 2022-10-27 17:30:00 86.637 kg [facility] BMI 2022-10-27 17:30:00 36.09 kg/m2 [facility] Systolic blood pressure 2022-10-25 18:39:00 100 mm[Hg] [facility] Diastolic blood pressure 2022-10-25 18:39:00 53 mm[Hg] [facility] Heart rate 2022-10-25 18:39:00 96 /min [facility] Body temperature 2022-10-25 18:39:00 36.72 Marlin [facility] Respiratory rate 2022-10-25 18:39:00 17 /min [facility] Oxygen saturation in Arterial blood by Pulse oximetry 2022-10-25 18:39:00 100 /min [facility] Systolic blood pressure 2022-10-22 15:42:00 116 mm[Hg] [facility] Diastolic blood pressure 2022-10-22 15:42:00 73 mm[Hg] [facility] Heart rate 2022-10-22 15:42:00 93 /min [facility] Body temperature 2022-10-22 15:42:00 36.56 Marlin [facility] Body height 2022-10-22 15:42:00 154.9 cm [facility] Body weight 2022-10-22 15:42:00 87.454 kg [facility] BMI 2022-10-22 15:42:00 36.43 kg/m2 [facility] Heart rate 2022-10-18 22:00:00 84 /min [facility] Oxygen saturation in Arterial blood by Pulse oximetry 2022-10-18 22:00:00 100 /min [facility] Systolic blood pressure 2022-10-18 21:30:00 102 mm[Hg] [facility] Diastolic blood pressure 2022-10-18 21:30:00 62 mm[Hg] [facility] Respiratory rate 2022-10-18 21:30:00 18 /min [facility] Body temperature 2022-10-18 20:36:00 36.72 Marlin [facility] Systolic blood pressure 2022-10-15 14:38:00 134 mm[Hg] [facility] Diastolic blood pressure 2022-10-15 14:38:00 88 mm[Hg] [facility] Heart rate 2022-10-15 14:38:00 90 /min [facility] Body temperature 2022-10-15 14:38:00 36.78 Marlin [facility] Respiratory rate 2022-10-15 14:38:00 16 /min [facility] Body height 2022-10-15 14:38:00 154.9 cm [facility] Body weight 2022-10-15 14:38:00 85.957 kg [facility] BMI 2022-10-15 14:38:00 35.81 kg/m2 [facility] Oxygen saturation in Arterial blood by Pulse oximetry 2022-10-15 14:38:00 97 /min [facility] Systolic blood pressure 2022-10-06 00:00:00 118 mm[Hg] [facility] Diastolic blood pressure 2022-10-06 00:00:00 86 mm[Hg] [facility] Heart rate 2022-10-06 00:00:00 88 /min [facility] Oxygen saturation in Arterial blood by Pulse oximetry 2022-10-06 00:00:00 100 /min [facility] Body temperature 2022-10-05 21:48:00 37.39 Marlin [facility] Respiratory rate 2022-10-05 21:48:00 18 /min [facility] Body height 2022-10-05 16:00:00 154.9 cm [facility] Body weight 2022-10-05 16:00:00 187.6 kg [facility] BMI 2022-10-05 16:00:00 78.19 kg/m2 [facility] Systolic blood pressure 2022-10-05 14:13:00 111 mm[Hg] [facility] Diastolic blood pressure 2022-10-05 14:13:00 78 mm[Hg] [facility] Heart rate 2022-10-05 14:13:00 95 /min [facility] Body temperature 2022-10-05 14:13:00 36.67 Marlin [facility] Respiratory rate 2022-10-05 14:13:00 16 /min [facility] Body height 2022-10-05 14:13:00 154.9 cm [facility] Body weight 2022-10-05 14:13:00 85.548 kg [facility] BMI 2022-10-05 14:13:00 35.64 kg/m2 [facility] Oxygen saturation in Arterial blood by Pulse oximetry 2022-10-05 14:13:00 99 /min [facility] Systolic blood pressure 2022-10-01 14:59:00 112 mm[Hg] [facility] Diastolic blood pressure 2022-10-01 14:59:00 74 mm[Hg] [facility] Heart rate 2022-10-01 14:59:00 89 /min [facility] Body temperature 2022-10-01 14:59:00 36.56 Marlin [facility] Respiratory rate 2022-10-01 14:59:00 16 /min [facility] Body height 2022-10-01 14:59:00 154.9 cm [facility] Body weight 2022-10-01 14:59:00 85.095 kg [facility] BMI 2022-10-01 14:59:00 35.45 kg/m2 [facility] Oxygen saturation in Arterial blood by Pulse oximetry 2022-10-01 14:59:00 99 /min [facility] Heart rate 2022-08-28 19:35:00 88 /min [facility] Oxygen saturation in Arterial blood by Pulse oximetry 2022-08-28 19:35:00 100 /min [facility] Systolic blood pressure 2022-08-28 17:05:00 114 mm[Hg] [facility] Diastolic blood pressure 2022-08-28 17:05:00 70 mm[Hg] [facility] Body temperature 2022-08-28 17:05:00 36.94 Marlin [facility] Respiratory rate 2022-08-28 17:05:00 18 /min [facility] Body height 2022-08-28 17:05:00 154.9 cm [facility] Body weight 2022-08-28 17:05:00 82.555 kg [facility] BMI 2022-08-28 17:05:00 34.39 kg/m2 [facility] Systolic blood pressure 2022-07-23 19:21:00 107 mm[Hg] [facility] Diastolic blood pressure 2022-07-23 19:21:00 73 mm[Hg] [facility] Heart rate 2022-07-23 19:21:00 80 /min [facility] Body temperature 2022-07-23 19:21:00 36.72 Marlin [facility] Respiratory rate 2022-07-23 19:21:00 17 /min [facility] Body height 2022-07-23 19:21:00 154.9 cm [facility] Body weight 2022-07-23 19:21:00 80.287 kg [facility] BMI 2022-07-23 19:21:00 33.44 kg/m2 [facility] Systolic blood pressure 2022-06-18 19:37:00 125 mm[Hg] [facility] Diastolic blood pressure 2022-06-18 19:37:00 89 mm[Hg] [facility] Heart rate 2022-06-18 19:37:00 88 /min [facility] Respiratory rate 2022-06-18 19:37:00 16 /min [facility] Body height 2022-06-18 19:37:00 154.9 cm [facility] Body weight 2022-06-18 19:37:00 79.334 kg [facility] BMI 2022-06-18 19:37:00 33.05 kg/m2 [facility] Oxygen saturation in Arterial blood by Pulse oximetry 2022-06-18 19:37:00 100 /min [facility] Systolic blood pressure 2022-05-18 21:45:00 115 mm[Hg] [facility] Diastolic blood pressure 2022-05-18 21:45:00 78 mm[Hg] [facility] Heart rate 2022-05-18 21:45:00 98 /min [facility] Respiratory rate 2022-05-18 21:45:00 18 /min [facility] Body height 2022-05-18 21:45:00 154.9 cm [facility] Body weight 2022-05-18 21:45:00 78.019 kg [facility] BMI 2022-05-18 21:45:00 32.50 kg/m2 [facility] Systolic blood pressure 2022-05-04 22:31:00 120 mm[Hg] [facility] Diastolic blood pressure 2022-05-04 22:31:00 83 mm[Hg] [facility] Heart rate 2022-05-04 22:22:00 90 /min [facility] Body temperature 2022-05-04 22:22:00 36.72 Marlin [facility] Respiratory rate 2022-05-04 22:22:00 18 /min [facility] Body height 2022-05-04 22:22:00 154.9 cm [facility] Body weight 2022-05-04 22:22:00 78.019 kg [facility] BMI 2022-05-04 22:22:00 32.50 kg/m2 [facility] Systolic blood pressure 2022-05-01 08:53:00 136 mm[Hg] [facility] Diastolic blood pressure 2022-05-01 08:53:00 92 mm[Hg] [facility] Heart rate 2022-05-01 08:53:00 84 /min [facility] Respiratory rate 2022-05-01 08:53:00 18 /min [facility] Oxygen saturation in Arterial blood by Pulse oximetry 2022-05-01 08:53:00 100 /min [facility] Body temperature 2022-05-01 07:17:00 36.78 Marlin [facility] Body height 2022-05-01 07:17:00 154.9 cm [facility] Body weight 2022-05-01 07:17:00 79.833 kg [facility] BMI 2022-05-01 07:17:00 33.25 kg/m2 [facility] Systolic blood pressure 2022-04-23 15:51:00 133 mm[Hg] [facility] Diastolic blood pressure 2022-04-23 15:51:00 88 mm[Hg] [facility] Heart rate 2022-04-23 15:51:00 92 /min [facility] Body temperature 2022-04-23 15:51:00 36.78 Marlin [facility] Body height 2022-04-23 15:51:00 154.9 cm [facility] Body weight 2022-04-23 15:51:00 80.196 kg [facility] BMI 2022-04-23 15:51:00 33.41 kg/m2 [facility] Systolic blood pressure 2022-04-09 20:05:00 132 mm[Hg] [facility] Diastolic blood pressure 2022-04-09 20:05:00 94 mm[Hg] [facility] Heart rate 2022-04-09 20:05:00 87 /min [facility] Body temperature 2022-04-09 20:05:00 36.83 Marlin [facility] Respiratory rate 2022-04-09 20:05:00 16 /min [facility] Oxygen saturation in Arterial blood by Pulse oximetry 2022-04-09 20:05:00 100 /min [facility] Body height 2022-04-08 17:37:00 154.9 cm [facility] Body weight 2022-04-08 17:37:00 78.019 kg [facility] BMI 2022-04-08 17:37:00 32.50 kg/m2 [facility] Procedures Procedure Date / Time Performed Performing Clinician Source PREPARE PACKED RBC 2022-11-04 18:14:09 Ramona Thompson [facility] CBC WITH DIFF 2022-11-03 09:35:00 Ramona Thompson [facility] CBC WITH DIFF 2022-11-03 09:35:00 Ramona Thompson [facility] SECTION 2022-11-02 22:49:00 Ramona Thompson [facility] SECTION 2022-11-02 22:49:00 Ramona Thompson [facility] CENTRAL NEURAXIAL BLOCK 2022-11-02 05:40:00 Josep [place] [facility] LACTATE DEHYDROGENASE 2022-11-02 03:45:00 Ramona Thompson [facility] URINALYSIS 2022-11-02 03:45:00 Ramona Thompson [facility] PROTEIN CREAT RATIO URINE RANDOM 2022-11-02 03:45:00 Ramona Thompson [facility] LACTATE DEHYDROGENASE 2022-11-02 03:45:00 Ramona Thompson [facility] URINALYSIS 2022-11-02 03:45:00 Ramona Thompson [facility] PROTEIN CREAT RATIO URINE RANDOM 2022-11-02 03:45:00 Ramona Thompson [facility] PREPARE PACKED RBC 2022-11-02 02:09:31 Ramona Thompson [facility] CBC WITH DIFF 2022-11-02 00:57:00 Ramona Thompson [facility] HEPATITIS B SURFACE ANTIGEN 2022-11-02 00:57:00 Ramona Thompson [facility] HB ABO GROUPING 2022-11-02 00:57:00 Ramona Thompson [facility] RHO (D) IMMUNE GLOBULIN 2022-11-02 00:57:00 Ramona Thompson [facility] ADC OR BILLIE ONLY - RPR 2022-11-02 00:57:00 [facility] WITH DIFF 2022-11-02 00:57:00 Ramona Thompson [facility] HEPATITIS B SURFACE ANTIGEN 2022-11-02 00:57:00 Jhonny [facility] HB ABO GROUPING 2022-11-02 00:57:00 Ramona Thompson [facility] RHO (D) IMMUNE GLOBULIN 2022-11-02 00:57:00 Ramona Thompson [facility] ADC OR BILLIE ONLY - RPR 2022-11-02 00:57:00 [facility] - WET PREP 2022-11-01 23:44:00 Ramona Thompson [facility] ADC CLC OR LCC ONLY - WET PREP 2022-11-01 23:44:00 [facility] US BIOPHYSICAL PROFILE 2022-11-01 21:40:54 Jhonny [facility] US BIOPHYSICAL PROFILE 2022-11-01 21:40:54 Jhonny [facility] US PELVIS > 14 WEEKS 2022-11-01 21:10:48 Jhonny [facility] US PELVIS > 14 WEEKS 2022-11-01 21:10:48 [facility] ADC ONLY - FERN TEST 2022-11-01 20:15:00 [facility] ADC ONLY - FERN TEST 2022-11-01 20:15:00 Thompson [facility] ASSIGNMENT OF BENEFITS 2022-11-01 18:08:14 Docto r Unassigned, [place] [facility] ASSIGNMENT OF BENEFITS 2022-11-01 18:08:14 Docto r Unassigned, [place] [facility] HOSPITAL ADMISSION 2022-11-01 05:01:00 Doctor Un assigned, [place] [facility] SGOT (ASPARTATE AMINO TRANSFER) 2022-10-30 12:44:[address] [facility] CREATININE 2022-10-30 12:44:[address] [facility] ALANINE AMINO TRANSFERASE(SGPT 2022-10-30 12:44:[address] [facility] LACTATE DEHYDROGENASE 2022-10-30 12:44:[address] [facility] URIC ACID 2022-10-30 12:44:[address] [facility] CBC WITH DIFF 2022-10-30 12:44:[address] [facility] URINALYSIS 2022-10-30 12:44:[address] [facility] PROTEIN CREAT RATIO URINE RANDOM 2022-10-30 12:44:00 [facility] ASSIGNMENT OF BENEFITS 2022-10-30 03:46:22 Docto r Unassigned, [place] [facility] CONSENT/REFUSAL FOR DIAGNOSIS AND TREATMENT 2022-10-30 03:45:34 Doctor Unassigned, [place] [facility] POCT URINALYSIS W/O SPECIFIC GRAVITY 2022-10-29 00:00:00 Ramona Thompson [facility] CONSENT/REFUSAL FOR DIAGNOSIS AND TREATMENT 2022-10-28 20:15:46 Doctor Unassigned, [place] [facility] ASSIGNMENT OF BENEFITS 2022-10-28 20:14:16 Docto r Unassigned, [place] [facility] NON-STRESS TEST 2022-10-27 22:59:46 Ramona Thompson [facility] ASSIGNMENT OF BENEFITS 2022-10-27 17:08:44 Docto r Unassigned, [place] [facility] L&D VISIT (NON-DELIVERED) 2022-10-27 05:01:00 Doctor Unassigned, [place] [facility] CONSENT/REFUSAL FOR DIAGNOSIS AND TREATMENT 2022-10-25 18:21:03 Doctor Unassigned, [place] [facility] ASSIGNMENT OF BENEFITS 2022-10-25 18:19:48 Docto r Unassigned, [place] [facility] AUTHORIZATION FOR RELEASE OF PHI 2022-10-25 05:01:00 Doctor Unassigned, [place] [facility] L&D VISIT (NON-DELIVERED) 2022-10-25 05:01:00 Doctor Unassigned, [place] [facility] DSU PRE-OP 2022-10-22 05:01:00 Doctor Unass igned, [place] [facility] POCT URINALYSIS W/O SPECIFIC GRAVITY 2022-10-22 00:00:00 Ramona Thompson [facility] NON-STRESS TEST 2022-10-18 22:56:00 Ramona Thompson [facility] ASSIGNMENT OF BENEFITS 2022-10-18 20:07:20 Docto r Unassigned, [place] [facility] AUTHORIZATION FOR RELEASE OF PHI 2022-10-18 05:01:00 Doctor Unassigned, [place] [facility] L&D VISIT (NON-DELIVERED) 2022-10-18 05:01:00 Doctor Unassigned, [place] [facility] SECOND AND THIRD TRIMESTER ULTRASOUND 2022-10-15 13:30:00 Ramona Thompson [facility] POCT URINALYSIS W/O SPECIFIC GRAVITY 2022-10-15 00:00:00 Ramona Thompson [facility] US BIOPHYSICAL PROFILE 2022-10-05 21:57:18 Ramona Thompson [facility] CBC WITH DIFF 2022-10-05 21:37:00 Ramona Thompson [facility] HB ABO GROUPING 2022-10-05 21:37:00 Ramona Thompson [facility] CONSENT/REFUSAL FOR DIAGNOSIS AND TREATMENT 2022-10-05 15:40:02 Doctor Unassigned, [place] [facility] NON-STRESS TEST 2022-10-05 14:59:46 Rayray Merrill [facility] TDAP VACCINE, >11 YRS, IM 2022-10-01 15:19:10 Ramona Thompson [facility] POCT URINALYSIS W/O SPECIFIC GRAVITY 2022-10-01 00:00:00 Jhonny Ramona Mckeon [facility] ASSIGNMENT OF BENEFITS 2022-08-28 16:42:17 Docto r Unassigned, [place] [facility] CONSENT/REFUSAL FOR DIAGNOSIS AND TREATMENT 2022-08-28 16:36:43 Doctor Unassigned, [place] [facility] POCT URINALYSIS W/O SPECIFIC GRAVITY 2022-07-23 00:00:00 Ramona Thompson [facility] POCT URINALYSIS W/O SPECIFIC GRAVITY 2022-06-18 00:00:00 Ramona Thompson [facility] POCT URINALYSIS W/O SPECIFIC GRAVITY 2022-05-18 00:00:00 [facility] POCT URINALYSIS W/O SPECIFIC GRAVITY 2022-05-04 00:00:00 [facility] US FIRST TRIMESTER LESS THAN 14 WEEKS 2022-05-01 10:03:10 Anoop Pearson [facility] POCT TEST 2022-05-01 08:05:00 Anoop Pearson [facility] CBC WITH DIFF 2022-05-01 07:33:00 Anoop Pearson [facility] URINALYSIS 2022-05-01 07:33:00 Anoop Pearson [facility] HB ABO GROUPING 2022-05-01 07:33:00 Anoop Pearson [facility] <14 WEEKS US LIMITED 2022-04-23 16:17:24 Ramona Thompson [facility] >14 WEEKS US LIMITED 2022-04-23 16:16:50 Ramona Thompson [facility] POCT URINALYSIS W/O SPECIFIC GRAVITY 2022-04-23 00:00:00 Ramona Thompson [facility] EXTERNAL PROVIDER RECORDS 2022-04-20 06:01:00 Doctor Unassigned, [place] [facility] XR CHEST 1 VW 2022-04-08 20:17:18 Tiffanie Moreau [facility] LIPASE 2022-04-08 18:02:00 Tiffanie Moreau [facility] MAGNESIUM 2022-04-08 18:02:00 Tiffanie Moreau [facility] HEPATIC FUNCTION PANEL (20843) (ALB,T.PRO,BILI T,BU/BC,ALT,AST,ALK PHOS) 2022-04-08 18:02:00 Tiffanie Moreau [facility] BASIC METABOLIC PANEL (NA, K, CL, CO2, GLUCOSE, BUN, CREATININE, CA) 2022-04-08 18:02:00 Tiffanie Moreau [facility] CBC WITH DIFF 2022-04-08 18:02:00 Tiffanie Moreau [facility] URINALYSIS 2022-04-08 18:02:00 Tiffanie Moreau [facility] CONSENT/REFUSAL FOR DIAGNOSIS AND TREATMENT 2022-04-08 17:26:41 Doctor Unassigned, [place] [facility] Encounters Start Date/Time End Date/Time Encounter Type Admission Type Attending Clinicians Care Facility Care Department Encounter ID Source 2022-04-09 15:11:06 Outpatient X [facility] [id number] [facility] 2023-01-16 00:00:00 2023-01-16 00:00:00 Outpatient GC_GCBZW_Ka liana_S [facility] [id number] [facility] 2022-11-11 11:00:00 2022-11-11 11:32:27 Outpatient R RAYRAY MERRILL CHERYAL [facility] [id number] [facility] 2022-11-11 11:00:00 2022-11-11 11:32:27 Routine Visit Rayray Merrill [facility] 1.2.840.114 350.1.13.10 4.2.7.2.686 [id number] 134 [id number] [facility] 2022-11-05 09:45:00 2022-11-05 09:45:00 Outpatient RAMONA COLE [facility] [id number] [facility] 2022-11-01 13:07:00 2022-11-04 12:00:00 Inpatient P RAMONA THOMPSON [facility] [id number] [facility] 2022-11-01 13:07:00 2022-11-04 12:00:00 Hospital Encounter Ramona Thompson [facility] 1.2.840.114 350.1.13.10 4.2.7.2.686 [id number] [id number] [facility] 2022-11-02 18:00:00 2022-11-02 19:41:00 Surgery Ramona Thompson [facility] 1.2.840.114 350.1.13.10 4.2.7.2.686 [id number] [facility] 2022-11-02 00:30:00 2022-11-02 18:00:00 Anesthesia Event Ruby [place] Jeffrey S [facility] 1.2.840.114 350.1.13.10 4.2.7.2.686 [id number] 083 [id number] [facility] 2022-11-01 00:00:00 2022-11-01 00:00:[address] [facility] 1.2.840.114 350.1.13.10 4.2.7.2.686 [id number] [facility] 2022-11-01 00:00:00 2022-11-01 00:00:00 Orders Only Doctor Unassigned, [place] [facility] 1.2.840.114 350.1.13.10 4.2.7.2.686 [id number] [facility] 2022-10-29 22:55:00 2022-10-30 09:15:00 Outpatient P REYNOLDS-YVETTE S, ARLEEN REYNOLDS-YVETTE S, ARLEEN [facility] [id number] [facility] 2022-10-29 22:55:00 2022-10-30 09:15:00 Hospital Encounter Arleen Black [facility] 1.2.840.114 350.1.13.10 4.2.7.2.686 [id number] [id number] [facility] 2022-10-29 12:45:00 2022-10-29 13:31:49 Outpatient R RAMONA THOMPSON [facility] [id number] [facility] 2022-10-29 12:45:00 2022-10-29 13:31:49 Routine Visit JhonnyRamona [facility] 1.2840.114 350.1.13.10 4.2.7.2.686 [id number] 134 [id number] [facility] 2022-10-28 15:13:00 2022-10-28 17:05:00 Outpatient P RAMONA THOMPSON [facility] [id number] [facility] 2022-10-28 15:13:00 2022-10-28 17:05:00 Hospital Encounter Ramona Thompson [facility] 1.2.840.114 350.1.13.10 4.2.7.2.686 [id number] [id number] [facility] 2022-10-27 12:11:00 2022-10-27 18:15:00 Outpatient P RAMONA THOMPSON [facility] [id number] [facility] 2022-10-27 12:11:00 2022-10-27 18:15:00 Hospital Encounter Ramona Thompson [facility] 1.2.840.114 350.1.13.10 4.2.7.2.686 [id number] [id number] [facility] 2022-10-27 00:00:00 2022-10-27 00:00:00 Telephone ThompsonRamona [facility] 1.2.840.114 350.1.13.10 4.2.7.2.686 [id number] 134 [id number] [facility] 2022-10-27 00:00:00 2022-10-27 00:00:00 Orders Only Doctor Unassigned, [place] [facility] 1.2.840.114 350.1.13.10 4.2.7.2.686 [id number] [facility] 2022-10-25 13:18:00 2022-10-25 14:30:00 Outpatient P RAMONA THOMPSON [facility] [id number] [facility] 2022-10-25 13:18:00 2022-10-25 14:30:00 Hospital Encounter Ramona Thompson [facility] 1.2.840.114 350.1.13.10 4.2.7.2.686 [id number] [id number] [facility] 2022-10-25 00:00:00 2022-10-25 00:00:00 Telephone Ramona Thompson [facility] 1.2.840.114 350.1.13.10 4.2.7.2.686 [id number] 134 [id number] [facility] 2022-10-22 10:00:00 2022-10-22 10:59:01 Outpatient R RAMONA THOMPSON [facility] [id number] [facility] 2022-10-22 10:00:00 2022-10-22 10:59:01 Routine Visit Ramona Thompson [facility] 1.2.840.114 350.1.13.10 4.2.7.2.686 [id number] 134 [id number] [facility] 2022-10-22 00:00:00 2022-10-22 00:00:00 Orders Only Doctor Unassigned, [place] [facility] 1.2.840.114 350.1.13.10 4.2.7.2.686 [id number] [facility] 2022-10-18 15:15:00 2022-10-18 17:20:00 Outpatient P RAMONA THOMPSON [facility] [id number] [facility] 2022-10-18 15:15:00 2022-10-18 17:20:00 Hospital Encounter Ramona Thompson [facility] 1.2.840.114 350.1.13.10 4.2.7.2.686 [id number] 083 [id number] [facility] 2022-10-18 15:09:00 2022-10-18 15:09:00 Outpatient P RAMONA THOMPSON [facility] [id number] [facility] 2022-10-18 00:00:00 2022-10-18 00:00:[address] [facility] 1.840.114 350.1.13.10 4.2.7.2.686 [id number] 134 [id number] [facility] 2022-10-18 00:00:00 2022-10-18 00:00:00 Orders Only Doctor Unassigned, [place] [facility] 1.2.840.114 350.1.13.10 4.2.7.2.686 [id number] [facility] 2022-10-15 09:15:00 2022-10-15 09:55:41 Routine Visit Ramona Thompson 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, Eleni Coleman [facility] 1.2840.114 350.1.13.10 4.2.7.2.686 [id number] [facility] 2022-10-05 10:39:00 2022-10-05 21:20:00 Outpatient P RAMONA THOMPSON [facility] [id number] [facility] 2022-10-05 10:39:00 2022-10-05 21:20:00 Hospital Encounter Ramona Thompson [facility] 1.840.114 350.1.13.10 4.2.7.2.686 [id number] [facility] 2022-10-05 09:45:00 2022-10-05 11:57:00 [facility] [id number] [facility] 2022-10-05 09:45:00 2022-10-05 11:57:00 Routine Visit Rayray eMrrill [facility] 1..114 350.1.13.10 4.2.7.2.686 [id number] 134 [id number] [facility] 2022-10-05 07:45:00 2022-10-05 08:00:00 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, Ang - Db Ramona Thompson [facility] 1.84.114 350.1.13.10 4.2.7.2.686 [id number] [facility] 2022-10-05 00:00:00 2022-10-05 00:00:00 Case Management Ramona Thompson [facility] 1.284.114 350.1.13.10 4.2.7.2.686 [id number] 134 [id number] [facility] 2022-10-04 09:15:00 2022-10-04 09:30:00 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 1..114 350.1.13.10 4.2.7.2.686 [id number] 134 [id number] [facility] 2022-10-01 10:00:00 2022-10-01 10:23:01 Outpatient R RAMONA THOMPSON [facility] [id number] [facility] 2022-10-01 10:00:00 2022-10-01 10:23:01 Routine Visit Ramona Thompson [facility] 1..114 350.1.13.10 4.2.7.2.686 [id number] 134 [id number] [facility] 2022-08-28 11:46:00 2022-08-28 14:50:00 Outpatient X REYNOLDS-YVETTE S, ARLEEN REYNOLDS-YVETTE S, ARLEEN [facility] [id number] [facility] 2022-08-28 11:46:00 2022-08-28 14:50:00 Emergency Reynolds-Yvette s, Arleen [facility] 1.84.114 350.1.13.10 4.2.7.2.686 [id number] [facility] 2022-08-28 00:00:00 2022-08-28 00:00:00 Patient Secure Msg Doctor Unassigned, [place] [facility] 1.2840.114 350.1.13.10 4.2.7.2.686 [id number] [facility] 2022-08-28 00:00:00 2022-08-28 00:00:00 Nurse Triage Jayson Akhtar [facility] 1.2.840.114 350.1.13.10 4.2.7.2.686 [id number] [facility] 2022-08-19 16:30:00 2022-08-19 16:30:00 Outpatient R RAYRAY MERRILL CHERYAL [facility] [id number] [facility] 2022-07-27 11:00:00 2022-07-27 12:00:00 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, Ad[facility] [place] [facility] 1.840.114 350.1.13.10 4.2.7.2.686 [id number] 134 [id number] [facility] 2022-07-27 11:00:00 2022-07-27 11:00:00 Outpatient R IBIS LAWTON [facility] [id number] [facility] 2022-07-23 14:30:00 2022-07-23 14:38:59 Outpatient R RAMONA THOMPSON [facility] [id number] [facility] 2022-07-23 14:30:00 2022-07-23 14:38:59 Routine Visit Ramona Thompson [facility] 1.840.114 350.1.13.10 4.2.7.2.686 [id number] 134 [id number] [facility] 2022-07-09 11:00:00 2022-07-09 11:00:00 Outpatient R ARLEEN BLACK MARISOL [facility] [id number] [facility] 2022-07-07 00:00:00 2022-07-07 00:00:00 Telephone Ramona Thompson [facility] 1.2.840.114 350.1.13.10 4.2.7.2.686 [id number] 134 [id number] [facility] 2022-06-22 00:00:00 2022-06-22 00:00:00 Case Management Ramona Thompson [facility] ON LICENSE [facility] 1.2.840.114 350.1.13.10 4.2.7.2.686 [id number] 134 [id number] [facility] 2022-06-18 14:30:00 2022-06-18 14:58:41 Outpatient R RAMONA THOMPSON [facility] [id number] [facility] 2022-06-18 14:30:00 2022-06-18 14:58:41 Routine Visit Ramona Thompson [facility] 1.2.840.114 350.1.13.10 4.2.7.2.686 [id number] 134 [id number] [facility] 2022-06-16 00:00:00 2022-06-16 00:00:00 Refill [facility] 1.2.840.114 350.1.13.10 4.2.7.2.686 [id number] 134 [id number] [facility] 2022-06-11 00:00:00 2022-06-11 00:00:00 Telephone Ramona Thompson [facility] 1.2.840.114 350.1.13.10 4.2.7.2.686 [id number] 134 [id number] [facility] 2022-05-20 00:00:00 2022-05-20 00:00:00 Telephone Garfield [facility] 1.2.840.114 350.1.13.10 4.2.7.2.686 [id number] 134 [id number] [facility] 2022-05-18 16:15:00 2022-05-18 16:15:00 Routine Visit GarfieldRayray [facility] 1..840.114 350.1.13.10 4.2.7.2.686 [id number] 134 [id number] [facility] 2022-05-18 16:15:00 2022-05-18 15:57:36 Outpatient R GARFIELDGABRIELJESUSITA [facility]LL [facility] [id number] [facility] 2022-05-18 00:00:00 2022-05-18 00:00:00 Telephone GarfieldRayray [facility] 1..840.114 350.1.13.10 4.2.7.2.686 [id number] 134 [id number] [facility] 2022-05-14 14:00:00 2022-05-14 14:00:00 Outpatient R [facility] [id number] [facility] 2022-05-05 11:30:00 2022-05-05 12:35:49 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840.114 350.1.13.10 4.2.7.2.686 [id number] 134 [id number] [facility] 2022-05-04 00:00:00 2022-05-04 00:00:00 [facility] 1.2.840.114 350.1.13.10 4.2.7.2.686 [id number] 134 [id number] [facility] 2022-05-03 00:00:00 2022-05-03 00:00:00 [facility]phone [facility] 1.2840.114 350.1.13.10 4.2.7.2.686 [id number] 134 [id number] [facility] 2022-05-01 01:14:00 2022-05-01 05:14:00 Emergency X ANOOP PEARSON TIMOTHY [facility] ERT [id number] [facility] 2022-05-01 01:14:00 2022-05-01 05:14:00 Emergency Anoop Pearson [facility] 1.2840.114 350.1.13.10 4.2.7.2.686 [id number] [facility] 2022-04-30 09:30:00 2022-04-30 09:30:00 Outpatient R [facility] [id number] [facility] 2022 00:00:00 2022 00:00:[address] [facility] 1.2.840.114 350.1.13.10 4.2.7.2.686 [id number] 134 [id number] [facility] 2022-04-23 09:00:00 2022-04-23 10:19:13 Initial Visit Ramona Thompson [facility] 1.2.840.114 350.1.13.10 4.2.7.2.686 [id number] 134 [id number] [facility] 2022-04-23 09:00:00 2022-04-23 10:19:13 Outpatient R RAMONA THOMPSON [facility] [id number] [facility] 2022-04-23 00:00:00 2022-04-23 00:00:00 Tele[address] Jhon[address] Ramona Mckeon [facility] 1.2.840.114 350.1.13.10 4.2.7.2.686 [id number] 134 [id number] [facility] 2022-04-20 00:00:00 2022-04-20 00:00:00 Orders Only Doctor Unassigned, [place] [facility] 1.2.840.114 350.1.13.10 4.2.7.2.686 [id number] [facility] 2022-04-16 00:00:00 2022-04-16 00:00:[address] [facility] 1.2.840.114 350.1.13.10 4.2.7.2.686 [id number] 134 [id number] [facility] 2022-04-13 00:00:00 2022-04-13 00:00:00 Case Management Rayray Merrill [facility] 1.2.840.114 350.1.13.10 4.2.7.2.686 [id number] 134 [id number] [facility] 2022-04-12 00:00:00 2022-04-12 00:00:[address] [facility] 1.2.840.114 350.1.13.10 4.2.7.2.686 [id number] 134 [id number] [facility] 2022-04-08 11:44:00 2022-04-09 14:55:00 Hospital Encounter Tiffanie [place] [address] [facility] [id number] [id number] [id number] [id number] [facility] 2022-04-08 11:44:00 2022-04-09 14:55:00 Outpatient X RAMONA THOMPSON [facility] PATT [id number] [facility] Results Test Description Test Time Test Comments Results Result Co mments Source [facility] IMMUNE [id number] 04:05:18* Test Item Value Reference Range Interpretation Comme nts RHIG CANDIDATE? (test code = 5188) No- see comment Patient is not a candidate for RhIg- Patient is Rh Positive.Performed at [facility] Laboratory Services - ADC Blood [address] [place] [id number] Free: [phone] No. [id number] [facility] HospitalUric Acid [id number] 13:18:12* Test Item Value Reference Range Interpretation Comme [facility] URIC ACID (test code = 5322301911) 5.3 mg/dL 2.9-6.0 Lab Interpretation (test cod e = 94565-3) Normal [facility] HospitalAlanine Amino Transferase (SGPT)2022-10-30 13:18:12* Test Item Value Reference Range Interpretation Comme nts ALTv (test code = 1742-6) 13 U/L 5-35 Lab Interpretation (test cod e = 14660-2) Normal [facility] HospitalSGOT (Asparate Amino Transfer)2022-10-30 13:18:11* Test Item Value Reference Range Interpretation Comme [facility] AST(SGOT) (test code = 0108343751) 20 U/L 13-40 Lab Interpretation (test cod e = 15005-3) Normal [facility] HospitalSerum Wcfdbpudxg0257-10-48 13:17:51* Test Item Value Reference Range Interpretation Comme nts CREATININE (test code = 8389324137) 0.33 mg/dL 0.50-1.04 L eGFR (test code = 3582091169) 239.1 mL/min/1.73m2 DUGLAS (test code = DUGLAS) Association of [...] or abnormalities in imaging tests). Lab Interpretation (test code = 63102-8) Abnormal [facility] HospitalLactate Mizouofslawam1577-92-05 13:17:31* Test Item Value Reference Range Interpretation Comme nts LDH (test code = 5772178255) 119 U/L 120-246 L Lab Interpretation (test cod e = 56897-8) Abnormal [facility] HospitalCBC with Kbkjybdbmfsg0482-49-17 13:06:50* Test Item Value Reference Range Interpretation Comme nts WBC (test code = 6690-2) 10.42 See_Comment [Automated Meaningo] The system which generated this result transmitted reference range: 4.30 - 11.10 10*3/?L. The reference range was not used to interpret this result as normal/abnormal. RBC (test code = 789-8) 3.25 See_Comment L [Automated Abundance Generationa ge] The system which generated this result transmitted reference range: 3.93 - 5.25 10*6/?L. The reference range was not used to interpret this result as normal/abnormal. HGB (test code = 718-7) 8.4 g/dL 11.6-15.0 L HCT (test code = 4544-3) 26.2 % 35.7-45.2 L MCV (test code = 787-2) 80.6 fL 80.6-95.5 MCH (test code = 785-6) 25.8 pg 25.9-32.8 L MCHC (test code = 786-4) 32.1 g/dL 31.6-35.1 RDW-SD (test code = 62818-7) 40.1 fL 39.0-49.9 RDW-CV (test code = 788-0) 13.9 % 12.0-15.5 PLT (test code = 777-3) 262 See_Comment [Automated Abundance Generationa ge] The system which generated this result transmitted reference range: 166 - 358 10*3/?L. The reference range was not used to interpret this result as normal/abnormal. MPV (test code = 07391-7) 10.2 fL 9.5-12.9 NRBC/100 WBC (test code = 6926079486) 0.0 See_Comment [Automated ZeeWhere ssage] The system which generated this result transmitted reference range: 0.0 - 10.0 /100 WBCs. The reference range was not used to interpret this result as normal/abnormal. NRBC x10^3 (test code = 2387295579) See_Comment [Automated Abundance Generationa ge] The system which generated this result transmitted reference range: 10*3/?L. The reference range was not used to interpret this result as normal/abnormal. GRAN MAT (NEUT) % (test code = 770-8) 63.8 % IMM GRAN % (test code = 9800659545) 0.90 % LYMPH % (test code = 736-9) 25.0 % MONO % (test code = 5905-5) 9.6 % EOS % (test code = 713-8) 0.4 % BASO % (test code = 706-2) 0.3 % GRAN MAT x10^3(ANC) (test code = 8634266869) 6.65 10*3/uL 1.88-7.09 IMM GRAN x10^3 (test code = 6258448442) 0.09 10*3/uL 0.00-0.06 H LYMPH x10^3 (test code = 731-0) 2.61 10*3/uL 1.32-3.29 MONO x10^3 (test code = 742-7) 1.00 10*3/uL 0.33-0.92 H EOS x10^3 (test code = 711-2) 0.04 10*3/uL 0.03-0.39 BASO x10^3 (test code = 704-7) 0.03 10*3/uL 0.01-0.07 Lab Interpretation (test code = 23677-2) Abnormal [facility] URINALYSIS W/O SPECIFIC [id number] 18:16:00* Test Item Value Reference Range Interpretation Comme nts POCT PH U (test code = 3254) n/a 5-8 POCT U LEUK EST (test code = 3263) n/a Negative - Negative POCT U NIT (test code = 3262) n/a Negative - Negati ve POCT U PROT (test code = 3259) Negative Negative - Negat lalo POCT U GLU (test code = 3256) Normal Negative - Negati ve POCT U KETONE (test code = 3258) n/a Negative - Neg ative POCT U BLD (test code = 3257) n/a Negative - Negati ve [facility] URINALYSIS W/O SPECIFIC [id number] 15:41:00* Test Item Value Reference Range Interpretation Comme nts POCT PH U (test code = 3254) 5 mg/dl 5-8 POCT U LEUK EST (test code = 3263) Negative Negative - Negative POCT U NIT (test code = 3262) Negative Negative - Negati ve POCT U PROT (test code = 3259) Negative Negative - Negat lalo POCT U GLU (test code = 3256) Negative Negative - Negati ve POCT U KETONE (test code = 3258) Negative Negative - Neg ative POCT U BLD (test code = 3257) Negative Negative - Negati ve [facility] URINALYSIS W/O SPECIFIC [id number] 14:43:00* Test Item Value Reference Range Interpretation Comme nts POCT PH U (test code = 3254) n/a 5-8 POCT U LEUK EST (test code = 3263) n/a Negative - Negative POCT U NIT (test code = 3262) n/a Negative - Negati ve POCT U PROT (test code = 3259) n/a Negative - Negat lalo POCT U GLU (test code = 3256) negative Negative - Negati ve POCT U KETONE (test code = 3258) negative Negative - Neg ative POCT U BLD (test code = 3257) n/a Negative - Negati ve [facility] URINALYSIS W/O SPECIFIC [id number] 15:07:00* Test Item Value Reference Range Interpretation Comme nts POCT PH U (test code = 3254) n/a 5-8 POCT U LEUK EST (test code = 3263) n/a Negative - Negative POCT U NIT (test code = 3262) n/a Negative - Negati ve POCT U PROT (test code = 3259) negative Negative - Negat lalo POCT U GLU (test code = 3256) negative Negative - Negati ve POCT U KETONE (test code = 3258) n/a Negative - Neg ative POCT U BLD (test code = 3257) n/a Negative - Negati ve [facility] URINALYSIS W/O SPECIFIC [id number] 19:19:00* Test Item Value Reference Range Interpretation Comme nts POCT PH U (test code = 3254) n/a 5-8 POCT U LEUK EST (test code = 3263) n/a Negative - Negative POCT U NIT (test code = 3262) n/a Negative - Negati ve POCT U PROT (test code = 3259) negative Negative - Negat lalo POCT U GLU (test code = 3256) negative Negative - Negati ve POCT U KETONE (test code = 3258) n/a Negative - Neg ative POCT U BLD (test code = 3257) n/a Negative - Negati ve [facility] URINALYSIS W/O SPECIFIC UWVIPRQ5521-06-71 19:42:00* Test Item Value Reference Range Interpretation Comme nts POCT PH U (test code = 3254) n/a 5-8 POCT U LEUK EST (test code = 3263) n/a Negative - Negative POCT U NIT (test code = 3262) n/a Negative - Negati ve POCT U PROT (test code = 3259) negative Negative - Negat lalo POCT U GLU (test code = 3256) negative Negative - Negati ve POCT U KETONE (test code = 3258) n/a Negative - Neg ative POCT U BLD (test code = 3257) n/a Negative - Negati ve [facility] URINALYSIS W/O SPECIFIC [id number] 21:46:00* Test Item Value Reference Range Interpretation Comme nts POCT PH U (test code = 3254) N/A 5-8 POCT U LEUK EST (test code = 3263) N/A Negative - Negative POCT U NIT (test code = 3262) N/A Negative - Negati ve POCT U PROT (test code = 3259) Negative Negative - Negat lalo POCT U GLU (test code = 3256) Negative Negative - Negati ve POCT U KETONE (test code = 3258) N/A Negative - Neg ative POCT U BLD (test code = 3257) N/A Negative - Negati ve [facility] URINALYSIS W/O SPECIFIC [id number] 22:31:00* Test Item Value Reference Range Interpretation Comme nts POCT PH U (test code = 3254) n/a 5-8 POCT U LEUK EST (test code = 3263) n/a Negative - Negative POCT U NIT (test code = 3262) n/a Negative - Negati ve POCT U PROT (test code = 3259) negative Negative - Negat lalo POCT U GLU (test code = 3256) negative Negative - Negati ve POCT U KETONE (test code = 3258) n/a Negative - Neg ative POCT U BLD (test code = 3257) n/a Negative - Negati ve [facility] HospitalType and Screen - ONCE Mowwami6440-75-57 09:06:51* Test Item Value Reference Range Interpretation Comme nts ABO & RH (test code = 20) O Positive Performed at [facility] Laboratory [facility] Blood [address] [place] [address] Free: [phone] No. [id number] IAT (test code = 1185) Negative Performed at [facility] Laboratory [facility] Blood [address] Free: [phone] No. [id number] [facility] WITH [id number] 08:14:12* Test Item Value Reference Range Interpretation Comme nts WBC (test code = 6690-2) 12.46 See_Comment H [Automated messa ge] The system which generated this result transmitted reference range: 4.30 - 11.10 10*3/?L. The reference range was not used to interpret this result as normal/abnormal. RBC (test code = 789-8) 4.37 See_Comment [Automated messa ge] The system which generated this result transmitted reference range: 3.93 - 5.25 10*6/?L. The reference range was not used to interpret this result as normal/abnormal. HGB (test code = 718-7) 12.6 g/dL 11.6-15.0 HCT (test code = 4544-3) 35.6 % 35.7-45.2 L MCV (test code = 787-2) 81.5 fL 80.6-95.5 MCH (test code = 785-6) 28.8 pg 25.9-32.8 MCHC (test code = 786-4) 35.4 g/dL 31.6-35.1 H RDW-SD (test code = 99830-1) 39.7 fL 39.0-49.9 RDW-CV (test code = 788-0) 13.4 % 12.0-15.5 PLT (test code = 777-3) 291 See_Comment [Automated messa ge] The system which generated this result transmitted reference range: 166 - 358 10*3/?L. The reference range was not used to interpret this result as normal/abnormal. MPV (test code = 32926-9) 10.0 fL 9.5-12.9 NRBC/100 WBC (test code = 8689433863) 0.0 See_Comment [Automated me ssage] The system which generated this result transmitted reference range: 0.0 - 10.0 /100 WBCs. The reference range was not used to interpret this result as normal/abnormal. NRBC x10^3 (test code = 1676042929) See_Comment [Automated messa ge] The system which generated this result transmitted reference range: 10*3/?L. The reference range was not used to interpret this result as normal/abnormal. GRAN MAT (NEUT) % (test code = 770-8) 60.4 % IMM GRAN % (test code = 0929898472) 0.40 % LYMPH % (test code = 736-9) 30.8 % MONO % (test code = 5905-5) 7.5 % EOS % (test code = 713-8) 0.5 % BASO % (test code = 706-2) 0.4 % GRAN MAT x10^3(ANC) (test code = 9250323307) 7.53 10*3/uL 1.88-7.09 H IMM GRAN x10^3 (test code = 7538626098) 0.05 10*3/uL 0.00-0.06 LYMPH x10^3 (test code = 731-0) 3.84 10*3/uL 1.32-3.29 H MONO x10^3 (test code = 742-7) 0.93 10*3/uL 0.33-0.92 H EOS x10^3 (test code = 711-2) 0.06 10*3/uL 0.03-0.39 BASO x10^3 (test code = 704-7) 0.05 10*3/uL 0.01-0.07 Lab Interpretation (test code = 06931-5) Abnormal [facility] HospitalPOAL [id number] 08:05:00* Test Item Value Reference Range Interpretation Comme nts POCT PREG (test code = 1605) + On board controls acceptable with C Line (test code = 3574) yes POCT PREG LOT # (test code = 3575) [id number] POCT PREG TEST DATE ( test code = 3576) 06/19/2023 Lab Interpretation (test cod e = 39081-4) Normal [facility]PO[facility] URINALYSIS W/O SPECIFIC [id number] 15:54:00* Test Item Value Reference Range Interpretation Comme nts POCT PH U (test code = 3254) 5 mg/dl 5-8 POCT U LEUK EST (test code = 3263) Negative Negative - Negative POCT U NIT (test code = 3262) Negative Negative - Negati ve POCT U PROT (test code = 3259) 30 Negative - Negat lalo POCT U GLU (test code = 3256) Normal Negative - Negati ve POCT U KETONE (test code = 3258) Negative Negative - Neg ative POCT U BLD (test code = 3257) Negative Negative - Negati ve [facility] HospitalHEPATIC FUNCTION PANEL (96193) (ALB,T.PRO,BILI T,BU/BC,ALT,AST,ALK PHOS)2022-04-08 18:47:59* Test Item Value Reference Range Interpretation Comme nts TOTAL BILI (test code = 5690823562) 0.7 mg/dL 0.1-1.1 BILI UNCON (test code = 8971940250) 0.4 mg/dL 0.1-1.1 BILI CONJ (test code = 4421254042) 0.0 mg/dL 0.0-0.3 T PROTEIN (test code = 2393246717) 8.3 g/dL 6.3-8.2 H ALBUMIN (test code = 2714066761) 5.1 g/dL 3.5-5.0 H ALK PHOS (test code = 3479207624) 96 U/L 34-122 ALTv (test code = 1742-6) 47 U/L 5-35 H AST(SGOT) (test code = 2791935173) 46 U/L 13-40 H Lab Interpretation (test cod e = 27089-9) Abnormal [facility] HospitalLIPASE2023-01-19 18:47:59* Test Item Value Reference Range Interpretation Comme nts LIPASE (test code = 4279222311) 65 U/L 0-220 Lab Interpretation (test cod e = 45155-8) Normal [facility] HospitalMAGNESIUM2023-01-19 18:47:39* Test Item Value Reference Range Interpretation Comme nts MAGNESIUM (test code = 4457294027) 2.1 mg/dL 1.7-2.4 Lab Interpretation (test cod e = 15171-8) Normal [facility] (NA, K, CL, CO2, GLUCOSE, BUN, CREATININE, CA)2022-04-08 18:26:55* Test Item Value Reference Range Interpretation Comme nts NA (test code = 7412452638) 136 mmol/L 135-145 K (test code = 1342491112) 3.5 mmol/L 3.5-5.0 CL (test code = 6779502640) 103 mmol/L 98-108 CO2 TOTAL (test code = 3336405281) 19 mmol/L 23-31 L AGAP (test code = 9371590339) 2-16 BUN (test code = 0456247987) 10 mg/dL 7-23 GLUCOSE (test code = 1913781129) 101 mg/dL 70-110 CREATININE (test code = 1622958924) 0.54 mg/dL 0.50-1.04 CALCIUM (test code = 8381696709) 9.7 mg/dL 8.6-10.6 eGFR (test code = 3624261027) mL/min/1.73m2 DUGLAS (test code = DUGLAS) Association of [...] or abnormalities in imaging tests). Lab Interpretation (test code = 87456-9) Abnormal [facility] WITH [id number] 18:18:14* Test Item Value Reference Range Interpretation Comme nts WBC (test code = 6690-2) See_Comment [Automated Meaningo] The system which generated this result transmitted reference range: 4.30 - 11.10 10*3/?L. The reference range was not used to interpret this result as normal/abnormal. RBC (test code = 789-8) See_Comment [Coinsetter] The system which generated this result transmitted reference range: 3.93 - 5.25 10*6/?L. The reference range was not used to interpret this result as normal/abnormal. HGB (test code = 718-7) 13.6 g/dL 11.6-15.0 HCT (test code = 4544-3) 38.5 % 35.7-45.2 MCV (test code = 787-2) 80.4 fL 80.6-95.5 L MCH (test code = 785-6) 28.4 pg 25.9-32.8 MCHC (test code = 786-4) 35.3 g/dL 31.6-35.1 H RDW-SD (test code = 54209-1) 38.8 fL 39.0-49.9 L RDW-CV (test code = 788-0) 13.4 % 12.0-15.5 PLT (test code = 777-3) See_Comment [Coinsetter] The system which generated this result transmitted reference range: 166 - 358 10*3/?L. The reference range was not used to interpret this result as normal/abnormal. MPV (test code = 09153-8) 10.8 fL 9.5-12.9 NRBC/100 WBC (test code = 2908039385) See_Comment [Automated me ssage] The system which generated this result transmitted reference range: 0.0 - 10.0 /100 WBCs. The reference range was not used to interpret this result as normal/abnormal. NRBC x10^3 (test code = 8093471140) See_Comment [Automated messa ge] The system which generated this result transmitted reference range: 10*3/?L. The reference range was not used to interpret this result as normal/abnormal. GRAN MAT (NEUT) % (test code = 770-8) 74.4 % IMM GRAN % (test code = 5680824441) 0.30 % LYMPH % (test code = 736-9) 17.7 % MONO % (test code = 5905-5) 6.9 % EOS % (test code = 713-8) 0.3 % BASO % (test code = 706-2) 0.4 % GRAN MAT x10^3(ANC) (test code = 3176263713) 7.89 10*3/uL 1.88-7.09 H IMM GRAN x10^3 (test code = 2656613266) 0.03 10*3/uL 0.00-0.06 LYMPH x10^3 (test code = 731-0) 1.88 10*3/uL 1.32-3.29 MONO x10^3 (test code = 742-7) 0.73 10*3/uL 0.33-0.92 EOS x10^3 (test code = 711-2) 0.03 10*3/uL 0.03-0.39 BASO x10^3 (test code = 704-7) 0.04 10*3/uL 0.01-0.07 Lab Interpretation (test code = 98905-5) Abnormal [facility] History and Physical Notes Date/Time Note Provider Source 2022-11-01 18:42:53 [id number] 5c3fCEsasnKb 5IjfXgVSSY+pQGhOe5FsmXy9hYhOwpsE 1858-37-06B51:42:53 TRIAGE HISTORY & PHYSICALIDENTIFYING DATAMarrissa Marlon is 27 year old, /White, 36w6d, female with ADAN 11/23/2022, by Last Menstrual Period. : 1995MRN: [id number] Care Physician: PATIENT DOES NOT HAVE A PCPCHIEF COMPLAINTLOF and decreased FMHISTORY OF PRESENT ILLNESSRoselyn García is a 27 year old female @ 36w6d presented for LOF. States that she felt a gush of clear fluid around 6 pm yesterday and felt more when she sat on the toilet. She felt moist after that. + irregular contractions. Decreased FM since this morning. No VB. No pre-eclampsia sx or other complaints.PAST OBSTETRIC HISTORYOB History Para Term AB Living 7 4 4 2 4 SAB IAB Ectopic Multiple Live Births 2 0 4 # Outcome Date GA Lbr Urbano/2nd Weight Sex Delivery Anes PTL Lv 7 Current 6 Term 03/26/21 NORMAL SPONT TAMMIE 5 Term 06/16/18 NORMAL SPONT TAMMIE 4 SAB 2018 FD 3 Term 07/18/17 NORMAL SPONT TAMMIE 2 SAB 02/2017 FD 1 Term 06/11/14 40w0d 3544 g F NORMAL SPONT EPI N TAMMIE PAST MEDICAL HISTORYProblem list: Patient Active Problem List Diagnosis Date Noted Decreased movements in third trimester 11/01/2022 Non-reassuring heart rate or rhythm affecting management of mother 11/01/2022 Threatened labor, third trimester 10/27/2022 Irregular uterine contractions 10/22/2022 Non-stress test reactive on surveillance 10/05/2022 Traumatic injury during , third trimester 10/05/2022 Fall 10/05/2022 Non-reassuring heart tones complicating , antepartum 10/05/2022 Anemia, antepartum, third trimester 10/05/2022 Generalized anxiety disorder 06/18/2022 Elevated blood pressure reading without diagnosis of hypertension 05/16/2022 Constipation during , antepartum 05/16/2022 Obesity in 04/23/2022 Obesity (BMI 30-39.9) 04/23/2022 Pelvic cramping in antepartum period 04/23/2022 36 weeks gestation of 06/29/2017 Nausea and vomiting during prior to 22 weeks gestation 12/30/2016 LGSIL on Pap smear of cervix 12/10/2016 Former tobacco use 12/02/2016 High-risk in third trimester 12/02/2016 Operations: No past surgical history on file.Past Medical History: Diagnosis Date Anemia 2014 during Anxiety Chlamydia 2013 tx'd Generalized anxiety disorder 06/18/2022 LGSIL on Pap smear of cervix 12/10/2016 CURRENT HEALTH STATUSMedications: Current Facility-Administered Medications Medication Dose Route Frequency Last Rate Last Admin carboprost (HEMABATE) injection 250 mcg 250 mcg Intramuscular Q2HPRN D5W-LR IV infusion 1,000 mL 1,000 mL IV Infusion TITRATE FENTanyl PF (SUBLIMAZE (PF)) injection 100 mcg 100 mcg Slow IV Push Q1HPRN lactated ringers IV infusion 500 mL 500 mL IV Infusion ONCE lactated ringers IV infusion 500 mL 500 mL IV Infusion PRN - SEE INSTRUCTIONS lactated ringers IV infusion 500 mL 500 mL IV Infusion PRN - SEE INSTRUCTIONS lidocaine 1% (PF) (XYLOCAINE) injection 0.3 mL 0.3 mL Infiltration PRN - SEE INSTRUCTIONS methylergonovine (METHERGINE) injection 0.2 mg 0.2 mg Intramuscular Q4HPRN miSOPROStoL (CYTOTEC) tablet 200 mcg 200 mcg Rectal PRN ondansetron (ZOFRAN (PF)) injection 4 mg 4 mg Slow IV Push Q8HPRN oxytocin (PITOCIN) 30 units in NS 500 mL IV infusion 600 mL/hr IV Infusion PRN oxytocin (PITOCIN) 30 units in NS 500 mL IV infusion 2-40 lobito-units/min IV Infusion TITRATE sodium citrate-citric acid (BICITRA) 500-334 mg/5 mL solution 30 mL 30 mL Oral PRE-PROCEDURE ONCE sodium citrate-citric acid (BICITRA) 500-334 mg/5 mL solution 30 mL 30 mL Oral PRE-PROCEDURE ONCE terbutaline (BRETHINE) injection 0.25 mg 0.25 mg Subcutaneous PRN tranexamic acid (CYKLOKAPRON) 1,000 mg in NaCl 0.9% (NS) 250 mL piggyback 1,000 mg IV Piggyback PRN Allergies and drug reactions: Patient has no known allergies.HOME MEDICATIONSMedications Prior to Admission Medication Sig Dispense Refill Last Dose ferrous sulfate (IRON, FERROUS SULFATE,) 325 mg (65 mg iron) tablet Take 1 tablet by mouth in the morning and 1 tablet in the evening. 60 tablet 1 Taking busPIRone 7.5 mg tablet Take 1 tablet by mouth in the morning and 1 tablet in the evening. 60 tablet 1 Not Taking metoclopramide HCl 10 mg tablet Take 1 tablet by mouth in the morning and 1 tablet at noon and 1 tablet in the evening. Take before meals. 30 tablet 2 Not Taking ondansetron 4 mg tablet Take 1 tablet by mouth every 8 (eight) hours as needed for Nausea and Vomiting (N/V). 30 tablet 1 Not Taking docusate (COLACE) 100 mg capsule Take 1 capsule by mouth in the morning. 30 capsule 1 Not Taking QKX96-BH-no4-ibt-sry-eujt oil ( GUMMY) 400 mcg-35 mg -25 mg-5 mg Chew Take 1 tablet by mouth daily. She may have any brand covered by her insurance. 30 tablet 7 Not Taking SOCIAL HISTORYTobacco History: Social History Tobacco Use Smoking Status Former Types: Cigarettes Start date: 12/02/2014 Quit date: 11/25/2016 Years since quittin.9 Passive exposure: Never Smokeless Tobacco Never Drug History: Social History Substance and Sexual Activity Drug Use No Alcohol History: Social History Substance and Sexual Activity Alcohol Use Never FAMILY HISTORYFamily History Problem Relation Age of Onset Cancer Father Diabetes Maternal Aunt Diabetes Maternal Grandmother Arthritis NoFHx Asthma NoFHx defects NoFHx Colon Cancer NoFHx Breast Cancer NoFHx Ovarian Cancer NoFHx Uterine Cancer NoFHx Depression NoFHx Genetic NoFHx Heart NoFHx High cholesterol NoFHx Hypertension NoFHx Mental retardation NoFHx Neurological NoFHx Osteoporosis NoFHx Psychiatry NoFHx Other - see comments NoFHx REVIEW OF SYSTEMSGeneral: negativeConstitutional: negativeEyes: negativeENT/Mouth: negativeCardiovascular: negativeRespiratory: negativeGastrointestinal:negativ eGenitourinary: see HPIMusculoskeletal: negativeSkin/breast: negativeNeurological: negativePsychiatric: negativeEndocrine: negativeHemat/Lymph: negativeAllergic/Immuno:noneVITA L SIGNSBP: (121-134)/(69-89) Temp: [36.7 ?C (98 ?F)] Temp source: Oral (11/01 1330)Pulse: [80-102] Resp: [17] SpO2: [99 %-100 %] Height: --Weight: --BMI (calculated): --PHYSICAL EXAMINATIONSGen: alert and oriented, well appearing, no distressCV: RRR, normal S1/S2, no m/r/gResp: normal work of breathing, lungs CTABAbd: gravid, soft, NTTPExt: no calf tenderness or edemaGU: SVE 2/50/high. Negative fern, nitrazine, pooling, or valsalva. REVIEW OF LABORATORY, PATHOLOGY, AND RADIOLOGY DATALab results:Type & Screen HIV Hep B Syphilis Chlamydia ABO & RH Date Value Ref Range Status 10/05/2022 O Positive Final HIV Ag-Ab Multiplex Date Value Ref Range Status 12/02/2016 Non-reactive Non-reactive Final No components found for: "HBSHBSAG" SYPH IGG Date Value Ref Range Status 12/02/2016 Nonreactive Nonreactive Final C. trachomatis Nucleic Acid Date Value Ref Range Status 10/15/2022 Negative Negative Final IAT Date Value Ref Range Status 10/05/2022 Negative Final Varicella Rubella Glucose Group B Strep CBC VZV IgG antibody Date Value Ref Range Status 12/02/2016 Positive Negative Final Rubella screen IgG Date Value Ref Range Status 12/02/2016 Positive Negative Final GLUC 1 HR Date Value Ref Range Status 10/05/2022 161 120 - 170 mg/dL Final No results found for: "CGBS" HGB Date Value Ref Range Status 10/30/2022 8.4 (L) 11.6 - 15.0 g/dL Final HCT Date Value Ref Range Status 10/30/2022 26.2 (L) 35.7 - 45.2 % Final PLT Date Value Ref Range Status 10/30/2022 262 166 - 358 10*3/?L Final Active Hospital Problems Diagnosis Date Noted Decreased movements in third trimester 11/01/2022 Non-reassuring heart rate or rhythm affecting management of mother 11/01/2022 Non-reassuring heart tones complicating , antepartum 10/05/2022 Anemia, antepartum, third trimester 10/05/2022 Obesity in 04/23/2022 36 weeks gestation of 06/29/2017 High-risk in third trimester 12/02/2016 Resolved Hospital Problems No resolved problems to display. Present on Admission: 36 weeks gestation of Decreased movements in third trimester High-risk in third trimester Obesity in Non-reassuring heart rate or rhythm affecting management of mother Anemia, antepartum, third trimesterPlacenta Accreta ScreeningPrior ? : NoPrior Uterine Surgery?: NoPlacenta low lying/previa in current ? : NoScreening outcome:A positive screening outcome indicates a history of prior delivery or prior uterine surgery, AND the presence of either a placenta low lying/previa or ultrasound suspicion of PASD in the current . Negative screening.ASSESSMENT AND PLANMarrissa Marlon is a 27 year old at 36w6d who presents for decreased FM and LOF.LOF- PPROM ruled outDecreased FM- 3 minutes decel from baseline of 150s down to 90s noted. Even though BPP 8/ today, given decreased FM and prolonged decel, will admit patient for delivery due to non-reassuring status near term. Spoke with Dr. Andersen, who agreed with plan of care. Induction- will start pitocin per protocol- Cephalic presentation confirmed- GBS neg- EFW 2955 grams on 11/01/22Anemia- hemoglobin 8.4 on 10/30/22- T&C x [address] Thompson, please see OB Summary for more detailsMickeyn Mike Thompson MD 11/01/2022 6:57 PM [id number] and physical vcumXD2367-49-02B78:59:28History and physical noteTXT1.2.840.535677.1.13.104.2 .7.2.485645|[id number] e for patient ydch44441-0Cxzqqtm and physical noteLNUT[address] QkxwRrxuwfpdbCblljjckzGONF101352 7374EYMKCJNCNGZXKUIZBXAOUU5241-6 8:59:281.2.840.540497.1.72 .3.15|1.2.840.084538.1.13.104.2. 7.2.727879_[id number] [facility] 2022-10-30 09:20:04 vifIeQJZ8WGK3JNZHJeZ YI5znYBg22We +4o0FJEDc1+lp1dT+EsmYKn0gwxmuRGd 2870-41-69R72:20:04 ANTEPARTUM HISTORY & PHYSICALIDENTIFYING DATARoselyn García is 27 year old, /White, 36w4d, female with ADAN 11/23/2022, by Last Menstrual Period. : 1995MRN: [id number] Care Physician: PATIENT DOES NOT HAVE A PCPHospital Day: 2CHIEF COMPLAINTcrampsHISTORY OF PRESENT ANOBYRM89 year old 36w4d presents with contractions overnight. Painful, states been contractions for 1 week straight. Denies vb or LOF. Good FM. No pre-eclampsia sx or complaints. PAST OBSTETRIC HISTORYOB History Para Term AB Living 7 4 4 2 4 SAB IAB Ectopic Multiple Live Births 2 0 4 # Outcome Date GA Lbr Urbano/2nd Weight Sex Delivery Anes PTL Lv 7 Current 6 Term 03/26/21 NORMAL SPONT TAMMIE 5 Term 06/16/18 NORMAL SPONT TAMMIE 4 SAB 2018 FD 3 Term 07/18/17 NORMAL SPONT TAMMIE 2 SAB 02/2017 FD 1 Term 06/11/14 40w0d 3544 g F NORMAL SPONT EPI N TAMMIE PAST MEDICAL HISTORYProblem list: Patient Active Problem List Diagnosis Date Noted Threatened labor, third trimester 10/27/2022 Irregular uterine contractions 10/22/2022 Non-stress test reactive on surveillance 10/05/2022 Traumatic injury during , third trimester 10/05/2022 Fall 10/05/2022 Maternal care for decelerations during 10/05/2022 Anemia, antepartum, third trimester 10/05/2022 Generalized anxiety disorder 06/18/2022 Elevated blood pressure reading without diagnosis of hypertension 05/16/2022 Constipation during , antepartum 05/16/2022 Obesity in 04/23/2022 Obesity (BMI 30-39.9) 04/23/2022 Pelvic cramping in antepartum period 04/23/2022 36 weeks gestation of 06/29/2017 Nausea and vomiting during prior to 22 weeks gestation 12/30/2016 LGSIL on Pap smear of cervix 12/10/2016 Former tobacco use 12/02/2016 High-risk in third trimester 12/02/2016 Operations: No past surgical history on file.Prior surgeries at outside hospitals: nonePast Medical History: Diagnosis Date Anemia 2014 during Anxiety Chlamydia 2014 tx'd Generalized anxiety disorder 06/18/2022 LGSIL on Pap smear of cervix 12/10/2016 CURRENT HEALTH STATUSMedications: No current facility-administered medications for this encounter. Allergies and drug reactions: Patient has no known allergies.HOME MEDICATIONSMedications Prior to Admission Medication Sig Dispense Refill Last Dose ferrous sulfate (IRON, FERROUS SULFATE,) 325 mg (65 mg iron) tablet Take 1 tablet by mouth in the morning and 1 tablet in the evening. 60 tablet 1 Taking busPIRone 7.5 mg tablet Take 1 tablet by mouth in the morning and 1 tablet in the evening. 60 tablet 1 Not Taking metoclopramide HCl 10 mg tablet Take 1 tablet by mouth in the morning and 1 tablet at noon and 1 tablet in the evening. Take before meals. 30 tablet 2 Not Taking ondansetron 4 mg tablet Take 1 tablet by mouth every 8 (eight) hours as needed for Nausea and Vomiting (N/V). 30 tablet 1 Not Taking docusate (COLACE) 100 mg capsule Take 1 capsule by mouth in the morning. 30 capsule 1 Not Taking PSD56-XJ-sb5-cwe-qoc-qics oil ( GUMMY) 400 mcg-35 mg -25 mg-5 mg Chew Take 1 tablet by mouth daily. She may have any brand covered by her insurance. 30 tablet 7 Not Taking Last taken: noneSOCIAL HISTORYTobacco History: Social History Tobacco Use Smoking Status Former Types: Cigarettes Start date: 12/02/2014 Quit date: 11/25/2016 Years since quittin.9 Passive exposure: Never Smokeless Tobacco Never Drug History: Social History Substance and Sexual Activity Drug Use No Alcohol History: Social History Substance and Sexual Activity Alcohol Use Never FAMILY HISTORYFamily History Problem Relation Age of Onset Cancer Father Diabetes Maternal Aunt Diabetes Maternal Grandmother Arthritis NoFHx Asthma NoFHx defects NoFHx Colon Cancer NoFHx Breast Cancer NoFHx Ovarian Cancer NoFHx Uterine Cancer NoFHx Depression NoFHx Genetic NoFHx Heart NoFHx High cholesterol NoFHx Hypertension NoFHx Mental retardation NoFHx Neurological NoFHx Osteoporosis NoFHx Psychiatry NoFHx Other - see comments NoFHx REVIEW OF SYSTEMSGeneral: (-) fatigueConstitutional: weight gainEyes: negativeENT/Mouth: negativeCardiovascular: negativeRespiratory: negativeGastrointestinal:painGen itourinary: negativeMusculoskeletal: negativeSkin/breast: negativeNeurological: negativePsychiatric: negativeEndocrine: negativeHemat/Lymph: negativeAllergic/Immuno:noneVITA L SIGNSBP: (122-147)/(79-106) Temp: [36.4 ?C (97.6 ?F)-36.5 ?C (97.7 ?F)] Temp source: Temporal Artery (10/30 0745)Pulse: [66-89] Resp: [18-20] SpO2: [99 %-100 %] Height: [154.9 cm (5' 0.98")-154.9 cm (5' 1")] Weight: [87.5 kg (193 lb)-88 kg (194 lb)] BMI (calculated): [36.49-36.66] PHYSICAL EXAMINATIONSGeneral: well-developed, well-nourishedAbdomen: tenderness - normalGU: OB pelvic exam performed? Yes. Dilation - 2 cmEffacement - 50% %Station - -5Presentation (fetus 1) - vertexExtremities: no clubbing, cyanosis, or edemaNeuro: cranial nerves II through XII grossly intact; sensation grossly intact; muscle strength 5 out of 5 in all four extremities REVIEW OF LABORATORY, PATHOLOGY, AND RADIOLOGY DATALab results:CBC BMP PT/INR WBC (10*3/?L) Date Value 10/30/2022 10.42 NA (mmol/L) Date Value 04/08/2022 136 No results found for: "PT" RBC (10*6/?L) Date Value 10/30/2022 3.25 (L) K (mmol/L) Date Value 04/08/2022 3.5 INR (no units) Date Value 09/14/2016 1.2 PLT (10*3/?L) Date Value 10/30/2022 262 CALCIUM (mg/dL) Date Value 04/08/2022 9.7 HGB (g/dL) Date Value 10/30/2022 8.4 (L) CL (mmol/L) Date Value 04/08/2022 103 aPTT HCT (%) Date Value 10/30/2022 26.2 (L) BUN (mg/dL) Date Value 04/08/2022 10 APTT Patient (Seconds) Date Value 09/14/2016 27 CREATININE (mg/dL) Date Value 10/30/2022 0.33 (L) GLUCOSE (mg/dL) Date Value 04/08/2022 101 CO2 TOTAL (mmol/L) Date Value 04/08/2022 19 (L) Type & Screen Rubella Varicella ABO & RH (no units) Date Value 10/05/2022 O Positive Rubella screen IgG (no units) Date Value 12/02/2016 Positive No results found for: "VZVG" No results found for: "TSABINT" Hep B HIV Syphilis No results found for: "HBS" No results found for: "HIV" No results found for: "SYPG" Group B Strep Chlamydia No results found for: "CGBS" C. trachomatis Nucleic Acid (no units) Date Value 10/15/2022 Negative X-ray results: nonePlacenta Accreta ScreeningPrior ? : NoPrior Uterine Surgery?: NoPlacenta low lying/previa in current ? : NoScreening outcome:A positive screening outcome indicates a history of prior delivery or prior uterine surgery, AND the presence of either a placenta low lying/previa or ultrasound suspicion of PASD in the current . Negative screening.FHR: cat 1Toco: irregular ASSESSMENT AND PLAN 27 year old @36w4d presents with contractions.No cervical changeReassuring statusNormal PIH labsReviewed PTL warningsFollow up wit P[place] [address]-5Njqtmzk and physical facyQH1966-35-85M98:31:05History and physical noteTXT1.2.840.714322.1.13.104.2 .7.2.569250|[id number] e for patient bjul19150-5Ipmekgx and physical noteLNOG-OBSTETRICS & GYNECOLOGY STAFFOG-OBSTETRICS [facility] GYNECOLOGY [address] FntsBdgtvgjgjFugtcvihfDMVW508738 7515FHMTHQPXAOBPATASFRUCXY7123-2 812T09:31:051.2.840.596831.1.72 .3.15|1.2.840.581079.1.13.104.2. [id number] [facility]YNECOLOGY STAFF [facility] 2022-10-27 17:52:31 26VMyK7ae6vcDhhSGIjz moSDCTydMiBN RbimgScuUDvn9aymbMJ47vPIS0TFTtNz 6591-24-01H13:52:31 TRIAGE HISTORY & PHYSICALIDENTIFYING DATARoselyn García is 27 year old, /White, 36w1d, female with ADAN 11/23/2022, by Last Menstrual Period. : 1995MRN: [id number] Care Physician: PATIENT DOES NOT HAVE A PCPCHIEF COMPLAINTcontractionsHISTORY OF PRESENT ILLNESSRoselyn García is a 27 year old female @ 36w1d presented for contractions. + decreased FM. No VB or LOF. No pre-eclampsia sx or other complaints.PAST OBSTETRIC HISTORYOB History Para Term AB Living 7 4 4 2 4 SAB IAB Ectopic Multiple Live Births 2 0 4 # Outcome Date GA Lbr Urbano/2nd Weight Sex Delivery Anes PTL Lv 7 Current 6 Term 03/26/21 NORMAL SPONT TAMMIE 5 Term 06/16/18 NORMAL SPONT TAMMIE 4 SAB 2018 FD 3 Term 07/18/17 NORMAL SPONT TAMMIE 2 SAB 02/2017 FD 1 Term 06/11/14 40w0d 3544 g F NORMAL SPONT EPI N TAMMIE PAST MEDICAL HISTORYProblem list: Patient Active Problem List Diagnosis Date Noted Threatened labor, third trimester 10/27/2022 Irregular uterine contractions 10/22/2022 Non-stress test reactive on surveillance 10/05/2022 Traumatic injury during , third trimester 10/05/2022 Fall 10/05/2022 Maternal care for decelerations during 10/05/2022 Anemia, antepartum, third trimester 10/05/2022 Generalized anxiety disorder 06/18/2022 Elevated blood pressure reading without diagnosis of hypertension 05/16/2022 Constipation during , antepartum 05/16/2022 Obesity in 04/23/2022 Obesity (BMI 30-39.9) 04/23/2022 Pelvic cramping in antepartum period 04/23/2022 36 weeks gestation of 06/29/2017 Nausea and vomiting during prior to 22 weeks gestation 12/30/2016 LGSIL on Pap smear of cervix 12/10/2016 Former tobacco use 12/02/2016 High-risk in third trimester 12/02/2016 Operations: No past surgical history on file.Past Medical History: Diagnosis Date Anemia 2014 during Anxiety Chlamydia 2013 tx'd Generalized anxiety disorder 06/18/2022 LGSIL on Pap smear of cervix 12/10/2016 CURRENT HEALTH STATUSMedications: No current facility-administered medications for this encounter. Allergies and drug reactions: Patient has no known allergies.HOME MEDICATIONSMedications Prior to Admission Medication Sig Dispense Refill Last Dose ferrous sulfate (IRON, FERROUS SULFATE,) 325 mg (65 mg iron) tablet Take 1 tablet by mouth in the morning and 1 tablet in the evening. 60 tablet 1 Taking busPIRone 7.5 mg tablet Take 1 tablet by mouth in the morning and 1 tablet in the evening. 60 tablet 1 Not Taking metoclopramide HCl 10 mg tablet Take 1 tablet by mouth in the morning and 1 tablet at noon and 1 tablet in the evening. Take before meals. 30 tablet 2 Not Taking ondansetron 4 mg tablet Take 1 tablet by mouth every 8 (eight) hours as needed for Nausea and Vomiting (N/V). 30 tablet 1 Not Taking docusate (COLACE) 100 mg capsule Take 1 capsule by mouth in the morning. 30 capsule 1 Not Taking MLU11-SU-kp4-ugp-wlm-frzt oil ( GUMMY) 400 mcg-35 mg -25 mg-5 mg Chew Take 1 tablet by mouth daily. She may have any brand covered by her insurance. 30 tablet 7 Not Taking SOCIAL HISTORYTobacco History: Social History Tobacco Use Smoking Status Former Types: Cigarettes Start date: 12/02/2014 Quit date: 11/25/2016 Years since quittin.9 Passive exposure: Never Smokeless Tobacco Never Drug History: Social History Substance and Sexual Activity Drug Use No Alcohol History: Social History Substance and Sexual Activity Alcohol Use Never FAMILY HISTORYFamily History Problem Relation Age of Onset Cancer Father Diabetes Maternal Aunt Diabetes Maternal Grandmother Arthritis NoFHx Asthma NoFHx defects NoFHx Colon Cancer NoFHx Breast Cancer NoFHx Ovarian Cancer NoFHx Uterine Cancer NoFHx Depression NoFHx Genetic NoFHx Heart NoFHx High cholesterol NoFHx Hypertension NoFHx Mental retardation NoFHx Neurological NoFHx Osteoporosis NoFHx Psychiatry NoFHx Other - see comments NoFHx REVIEW OF SYSTEMSGeneral: negativeConstitutional: negativeEyes: negativeENT/Mouth: negativeCardiovascular: negativeRespiratory: negativeGastrointestinal:negativ eGenitourinary: see HPIMusculoskeletal: negativeSkin/breast: negativeNeurological: negativePsychiatric: negativeEndocrine: negativeHemat/Lymph: negativeAllergic/Immuno:noneVITA L SIGNSBP: (125-139)/(67-90) Temp: [36.7 ?C (98 ?F)-36.8 ?C (98.3 ?F)] Temp source: Temporal Artery (10/27 1730)Pulse: [74-103] Resp: [18-20] SpO2: [98 %-100 %] Height: [154.9 cm (5' 1")] Weight: [86.6 kg (191 lb)-86.9 kg (191 lb 9.6 oz)] BMI (calculated): [36.09-36.2] PHYSICAL EXAMINATIONSGen: alert and oriented, well appearing, no distressCV: RRR, normal S1/S2, no m/r/gResp: normal work of breathing, lungs CTABAbd: gravid, soft, NTTPExt: no calf tenderness or edemaGU: SVE 2/50/high REVIEW OF LABORATORY, PATHOLOGY, AND RADIOLOGY DATALab results:Type & Screen HIV Hep B Syphilis Chlamydia ABO & RH Date Value Ref Range Status 10/05/2022 O Positive Final HIV Ag-Ab Multiplex Date Value Ref Range Status 12/02/2016 Non-reactive Non-reactive Final No components found for: "HBSHBSAG" SYPH IGG Date Value Ref Range Status 12/02/2016 Nonreactive Nonreactive Final C. trachomatis Nucleic Acid Date Value Ref Range Status 10/15/2022 Negative Negative Final IAT Date Value Ref Range Status 10/05/2022 Negative Final Varicella Rubella Glucose Group B Strep CBC VZV IgG antibody Date Value Ref Range Status 12/02/2016 Positive Negative Final Rubella screen IgG Date Value Ref Range Status 12/02/2016 Positive Negative Final GLUC 1 HR Date Value Ref Range Status 10/05/2022 161 120 - 170 mg/dL Final No results found for: "CGBS" HGB Date Value Ref Range Status 10/05/2022 8.8 (L) 11.6 - 15.0 g/dL Final HCT Date Value Ref Range Status 10/05/2022 26.8 (L) 35.7 - 45.2 % Final PLT Date Value Ref Range Status 10/05/2022 253 166 - 358 10*3/?L Final Active Hospital Problems Diagnosis Date Noted Threatened labor, third trimester 10/27/2022 36 weeks gestation of 06/29/2017 High-risk in third trimester 12/02/2016 Resolved Hospital Problems No resolved problems to display. Present on Admission: High-risk in third trimester 36 weeks gestation of Threatened labor, third trimesterASSESSMENT AND PLANMarrissa Marlon is a 27 year old at 36w1d who presents with contractions.Threatened labor- SVE changed from 1 cm to 2/50/-3 and remained unchanged at 2/50/-3, last check at 5:30 pm- BMZ#1 given today- contractions spaced out with PO hydration. Patient declined IV sedation and terb- offered patient to stay overnight for a recheck in am. Patient declined and wants to go home. - follow-up as scheduledDecreased FM- NST reactive and reassuringDispo: stable for discharge and to follow-up tomorrow for BMZ#2. Strong labor precautions and [place] [address]-7Xgwvzmb and physical goenBM6374-30-96E86:59:08History and physical noteTXT1.2.840.772555.1.13.104.2 .7.2.549040|[id number] da for patient jnmm02640-4Zmoijdt and physical noteLNUT[address] LrihOuupprjkyJlnntehvwMOWF790382 2437KLXGZSNBDVXCFYIWVXGCAF2843-7 10-27T17:59:081.2.840.345527.1.72 .3.15|1.2.840.356960.1.13.104.2. 7.2.727879_[id number] [facility] 2022-10-05 18:22:49 9z7gnZiIEYy9G86g5/rG xf1HKoMZVrjV /aLpkFQYHaPa4vp/Ad7gahvZuM13My 9759-01-18G47:22:49 TRIAGE HISTORY & PHYSICALIDENTIFYING DATARoselyn García is 27 year old, /White, 33w0d, female with ADAN 11/23/2022, by Last Menstrual Period. : 1995MRN: [id number] Care Physician: PATIENT DOES NOT HAVE A PCPCHIEF COMPLAINTSent from clinic for prolonged monitoring s/p fallHISTORY OF PRESENT ILLNESSRoselyn García is a 27 year old female presented for clinic today for evaluation s/p fall. Did not hit her abdomen both times."Patient has had two falls since October 03, 2022. The first fall was Tuesday, October 03. The second fall was "yesterday" October 04. Patient has not been seen at L&D since the falls; she presented to clinic with complaints of decreased movement and pelvic pressure." Irregular contractions noted on NST. NST reactive and reassuring.No VB or LOF. No pre-eclampsia sx or other complaints.PAST OBSTETRIC HISTORYOB History Para Term AB Living 7 4 4 2 4 SAB IAB Ectopic Multiple Live Births 2 0 4 # Outcome Date GA Lbr Urbano/2nd Weight Sex Delivery Anes PTL Lv 7 Current 6 Term 03/26/21 NORMAL SPONT TAMMIE 5 Term 06/16/18 NORMAL SPONT TAMMIE 4 SAB 2018 FD 3 Term 07/18/17 NORMAL SPONT TAMMIE 2 SAB 02/2017 FD 1 Term 06/11/14 40w0d 3544 g F NORMAL SPONT EPI N TAMMIE PAST MEDICAL HISTORYProblem list: Patient Active Problem List Diagnosis Date Noted Non-stress test reactive on surveillance 10/05/2022 Traumatic injury during , third trimester 10/05/2022 Fall 10/05/2022 Maternal care for decelerations during 10/05/2022 Anemia, antepartum, third trimester 10/05/2022 Generalized anxiety disorder 06/18/2022 Elevated blood pressure reading without diagnosis of hypertension 05/16/2022 Constipation during , antepartum 05/16/2022 Obesity in 04/23/2022 Obesity (BMI 30-39.9) 04/23/2022 Pelvic cramping in antepartum period 04/23/2022 33 weeks gestation of 06/29/2017 Nausea and vomiting during prior to 22 weeks gestation 12/30/2016 LGSIL on Pap smear of cervix 12/10/2016 Former tobacco use 12/02/2016 High-risk in third trimester 12/02/2016 Operations: No past surgical history on file.Past Medical History: Diagnosis Date Anemia 2014 during Anxiety Chlamydia 2013 tx'd Generalized anxiety disorder 06/18/2022 LGSIL on Pap smear of cervix 12/10/2016 CURRENT HEALTH STATUSMedications: No current facility-administered medications for this encounter. Allergies and drug reactions: Patient has no known allergies.HOME MEDICATIONSMedications Prior to Admission Medication Sig Dispense Refill Last Dose busPIRone 7.5 mg tablet Take 1 tablet by mouth in the morning and 1 tablet in the evening. 60 tablet 1 Not Taking metoclopramide HCl 10 mg tablet Take 1 tablet by mouth in the morning and 1 tablet at noon and 1 tablet in the evening. Take before meals. 30 tablet 2 Not Taking ondansetron 4 mg tablet Take 1 tablet by mouth every 8 (eight) hours as needed for Nausea and Vomiting (N/V). 30 tablet 1 Not Taking docusate (COLACE) 100 mg capsule Take 1 capsule by mouth in the morning. 30 capsule 1 Not Taking VCE10-TO-yr9-qci-poh-acat oil ( GUMMY) 400 mcg-35 mg -25 mg-5 mg Chew Take 1 tablet by mouth daily. She may have any brand covered by her insurance. 30 tablet 7 Not Taking SOCIAL HISTORYTobacco History: Social History Tobacco Use Smoking Status Former Types: Cigarettes Start date: 12/02/2014 Quit date: 11/25/2016 Years since quittin.8 Passive exposure: Never Smokeless Tobacco Never Drug History: Social History Substance and Sexual Activity Drug Use No Alcohol History: Social History Substance and Sexual Activity Alcohol Use Never FAMILY HISTORYFamily History Problem Relation Age of Onset Cancer Father Diabetes Maternal Aunt Diabetes Maternal Grandmother Arthritis NoFHx Asthma NoFHx defects NoFHx Colon Cancer NoFHx Breast Cancer NoFHx Ovarian Cancer NoFHx Uterine Cancer NoFHx Depression NoFHx Genetic NoFHx Heart NoFHx High cholesterol NoFHx Hypertension NoFHx Mental retardation NoFHx Neurological NoFHx Osteoporosis NoFHx Psychiatry NoFHx Other - see comments NoFHx REVIEW OF SYSTEMSGeneral: negativeConstitutional: negativeEyes: negativeENT/Mouth: negativeCardiovascular: negativeRespiratory: negativeGastrointestinal:negativ eGenitourinary: negativeMusculoskeletal: negativeSkin/breast: negativeNeurological: negativePsychiatric: negativeEndocrine: negativeHemat/Lymph: negativeAllergic/Immuno:noneVITA L SIGNSBP: (90-111)/(50-78) Temp: [36.7 ?C (98 ?F)-37.4 ?C (99.3 ?F)] Temp source: Oral (10/05 1648)Pulse: [66-112] Resp: [16-18] SpO2: [90 %-100 %] Height: [154.9 cm (5' 0.98")-154.9 cm (5' 1")] Weight: [85.5 kg (188 lb 9.6 oz)-187.6 kg (413 lb 9.3 oz)] BMI (calculated): [35.64-78.19] PHYSICAL EXAMINATIONSGen: alert and oriented, well appearing, no distressCV: RRR, normal S1/S2, no m/r/gResp: normal work of breathing, lungs CTABAbd: gravid, soft, NTTPExt: no calf tenderness or edemaGU: SVE cl/50/-3 by DUST PULLER OF LABORATORY, PATHOLOGY, AND RADIOLOGY DATALab results:Type & Screen HIV Hep B Syphilis Chlamydia ABO & RH Date Value Ref Range Status 10/05/2022 O Positive Final HIV Ag-Ab Multiplex Date Value Ref Range Status 12/02/2016 Non-reactive Non-reactive Final No components found for: "HBSHBSAG" SYPH IGG Date Value Ref Range Status 12/02/2016 Nonreactive Nonreactive Final C. trachomatis Nucleic Acid Date Value Ref Range Status 06/18/2022 Negative Negative Final IAT Date Value Ref Range Status 10/05/2022 Negative Final Varicella Rubella Glucose Group B Strep CBC VZV IgG antibody Date Value Ref Range Status 12/02/2016 Positive Negative Final Rubella screen IgG Date Value Ref Range Status 12/02/2016 Positive Negative Final GLUC 1 HR Date Value Ref Range Status 10/05/2022 161 120 - 170 mg/dL Final No results found for: "CGBS" HGB Date Value Ref Range Status 10/05/2022 8.8 (L) 11.6 - 15.0 g/dL Final HCT Date Value Ref Range Status 10/05/2022 26.8 (L) 35.7 - 45.2 % Final PLT Date Value Ref Range Status 10/05/2022 253 166 - 358 10*3/?L Final Active Hospital Problems Diagnosis Date Noted fall10/05/2022 Maternal care for decelerations during 10/05/2022 Anemia, antepartum, third trimester 10/05/2022 33 weeks gestation of 06/29/2017 High-risk in third trimester 12/02/2016 Resolved Hospital Problems No resolved problems to display. Present on Admission: Fall 33 weeks gestation of High-risk in third trimester Anemia, antepartum, third trimesterASSESSMENT AND PLANMarrissa Marlon is a 27 year old at 33w0d who presents for prolonged monitoring s/p fall.S/p fall- strip overall reassuring except for one prolonged decel from baseline of 140s down to 90s for almost 3 minutes at 1538. Strip otherwise reactive and reassuring- irregular contractions on toco- BPP 10/26- will continue inhouse monitoringPVT of Dr. Thompson, please see OB Summary for [place] [address]-1Pjbrueh and physical radkDA8228-01-73R78:34:48History and physical noteTXT1.2.840.423775.1.13.104.2 .7.2.472916|[id number] e for patient [address] ZeqiTgbipudhtGjzgdiwylODNS983618 8465DBWEJRPTNIZIZIYBOQWHCO1640-8 8:34:481.2.840.944444.1.72 .3.15|1.2.840.923111.1.13.104.2. [id number] [facility] Procedure Notes Date/Time Note Provider Source 2022-11-02 01:21:21 [id number]P qJXEE2RaSgVDN2KcKoDJk/yb6du890910-2 01:21:21Associated Order(s): Central Neuraxial Block Central Neuraxial Block Date/Time: 11/02/2022 12:40 AMPerformed by: Ruby Cleveland DOAuthorized by: Ruby Cleveland DO Patient Location: OBReason for Block: Labor analgesia and Patient requestStaff: Anesthesiologist: Ruby Cleveland DO Performed by: anesthesiologistPreanesthetic Checklist: patient identified, IV checked, risks and benefits explained, monitors and equipment checked, timeout performed, pre-op evaluation, surgical consent, site marked, ob/surgical consent approval, ob/surgical consent verified and anesthesia consentProcedure: Type of Neuraxial: Continuous Epidural Description: 1st attempt Sterility Prep cap, drape, gloves, hand hygiene and mask Sedation Level no sedation Patient Position: sitting Prep: Betadine Monitoring: heart rate / toco, heart rate and NIBP Location: lumbar (1-5) Lumbar: L4-L5 Approach: midline Technique: ROLANDO saline Guidance with: landmark technique}Epidural/Spinal [place] and/or Catheter: Needle Insertion Depth: 7 Catheter Type: multiport Catheter Size: 19 G Catheter at Skin Depth: 13 Number of Attempts: 2 Test Dose: lidocaine 1.5% with epinephrine 1-to-200,000 Dose: 3 cc Catheter Securement Method: clear occlusive dressing, stabilization device and surgical tapeAssessment: Block Outcome: patient tolerated procedure well, patient satisfied, patient comfortable, pain relieved and successful block Procedure Assessment: patient tolerated procedure well with no complicationsNotes: First attempt at L5/S1. LORS. Patient reported paresthesia down left thigh after catheter advanced to 12cm. Symptoms improved with catheter withdrawal to 10cm, but still persisted slightly. Catheter removed and paresthesia resolved.Second attempt at L4/L5. LORS. Catheter advanced smoothly (without paresthesia). Negative test dose. Pt reports significant pain relief during next contraction. No paresthesia, motor and sensory grossly intact BLE. 72274-5Hyqgaxdmtcmccr procedure iastOX7881-08-80V79:28:44Anesthesio logy procedure noteTXT1.2.840.567945.1.13.104.2.7. 2.296397|[id number] for patient awcp47271-4Qhyciazj operation noteLNAN-ANESTHESIOLOGY ANESTHESIOLOGISTAN-ANESTHESIOLOGY ANESTHESIOLOGIST[address] StreetLw[id number] 3VPCGOFNQUNYJQTQOQCGXUI2148-53-59J8 1:28:441.2.840.228318.1.72.3.15|1.2 .840.190644.1.13.104.2.7.2.727879_1 [id number] AN-ANESTHESIOLOGY ANESTHESIOLOGIST [facility] Progress Notes Date/Time Note Provider Source 2022-10-15 09:15:00 bDZ6mddXTrQhTTKovC3N 0rSoyTCqxrTLlTKCgj5kHu 7Sg94KOqtIx4cU1DIAnbbY7664-99-42T78:15:00F ormatting of this note might be different from the original.Age: 27 year oldGA: 34w3d -Anemia: Iron supplements ordered-1 hour GTT abnormal: 3-hour GTT ordered, not completed yet.-Vaginal spotting with wiping once on Tuesday and once on morning, none today. Last intercourse was 1.5 months ago. Vaginal discharge noted on exam. GC/CT and vaginal pathogen collected. SVE closed. Rh+. Bleeding precautions given.-Anxiety: LEEANN-7 score 4. Not on medication.-Had ultrasound done today, report pending.-Daily kick fkcngj-Kmzzzn-on in 2 weeks for unless clinically indicated otherwise 18092-7Whcfwnlx wvrxJS5643-35-37G82:03:19Progress noteTXT1.2.840.756776.1.13.104.2.7.2.27687 9|[id number] for patient [address] TpjgAdeigxuluSiedhbmyoJZYJ5594658997IFNDCU HDAGUGFKDZMXNCMP8106-71-91X01:03:191.2.840 .615323.1.72.3.15|1.2.840.829920.1.13.104. 2.7.2.727879_[id number] [facility] 2022-10-05 09:45:00 4aTLHrdrJLvT0kKvamWL pvFckUhrjYhf1BiCjC0zmV dDHzpzeB9YSiEESS/JD20a6971-75-25E62:45:00F ormatting of this note might be different from the original.Age: 27 year oldGA: 33w0d Kim García is a 27 y.o. female who presented to clinic for evaluation after a recent fall at 33w0d gestation. Ms. García is a patient of Dr. Thompson.High risk in third dyylqplpa76 weeks gestation of pregnancy3. Traumatic injury during , third trimester4. Non-stress test reactive on surveillance- Patient has had two falls since October 03, 2022. The first fall was Tuesday, October 03. The second fall was "yesterday" October 04. Patient has not been seen at L&D since the falls; she presented to clinic with complaints of decreased movement and pelvic pressure.- NST with reactive heart tracing. 150bpm with multiple accelerations.- Irregular contractions.- Dr. Thompson notified by Shandra Rodriguez RN. Patient will proceed to Labor and Delivery for continued monitoring and care as needed.- RTC for any concerns.5. Obesity in - Maintain healthy diet with elevated protein, whole grain foods, vegetables, and fruit- Increase water for hydration- Daily exercise as toleratedRTC for previously scheduled RENUKA with Dr. Thompson; sooner as indicated.I have seen and examined the patient and agreed with the note aboveRayray Merrill NP 10/05/2022 10:08 AM 74418-5Efudcjuh pskkUK5239-54-63C96:13:54Progress noteTXT1.2.840.540855.1.13.104.2.7.2.56944 9|[id number] for patient [address] Ex[id number] PCKJXSIXOTKQUSSQ5598-03-96G65:13:541.2.840 .576666.1.72.3.15|1.2.840.502962.1.13.104. 2.7.2.727879_[id number] [facility] Notes Date/Time Note Provider Source 2022-11-07 11:48:54 OigwNeslRSwfqIUtGLqQP29oHZwT2+pY QLSkgk3bUYdPzv3KOPQnxanDLlVjkiOK 7974-88-20F50:48:54 Addendum created 11/07/228 by Ever Hines MD Clinical Note Signed 99357-1Ishjmfrc XuymoknkUX1782-09-96B14:48:54Add endum DocumentTXT1.2.840.432231.1.13.1 04.2.7.2.638113|[id number] lable for patient lcme44322-0ZvnjCMPNYICUFH33 Garcia StreetTXTX[address] 9709WQBALPUSMKUAUPCMTUXUVJ2897-1 :48:541.2.840.866940.1.72 .3.15|1.2.840.249913.1.13.104.2. 7.2.727879_[id number] [facility] 2022-11-07 11:47:57 d5FePN9RjD71HBCvJLALhhc55u61Y/Ch vTEZqiarMHkE8O7nS7boep+Hy8ldkpfO 7662-76-42E46:47:57 Patient: Roselyn García Procedure Summary Date: 11/02/22 Room / Location: Anesthesia Start: 0030 Anesthesia Stop: 1800 Procedure: LABOR CONSULT Diagnosis: Scheduled Providers: Responsible Provider: Ever Hines MD Anesthesia Type: Not recorded ASA Status: 2 Anesthesia Type: No value filed.Last vitalsBP Temp Pulse Resp SpO2 There were no known notable events for this encounter.Anesthesia Post EvaluationComments: Late entry:DUSTY infusion stopped. Patient went to C/S. See C/S encounter for more. 35834-5Cheolyzwadsjzu Postoperative evaluation and management pcmqUL6584-95-52W12:48:45Anesthe siology Postoperative evaluation and management noteTXT1.2.840.838734.1.13.104.2 .7.2.419153|[id number] e for patient mgss56647-8Ulgahjpb operation noteLNAN-ANESTHESIOLOGY ANESTHESIOLOGISTAN-ANESTHESIOLOG Y ANESTHESIOLOGIST[address]TXTX[address] 8044QYPYIHJWMEQBAJLNRESWVT6131-5 8-20T11:48:451.2.840.025407.1.72 .3.15|1.2.840.127505.1.13.104.2. 7.2.727879_[id number] AN-ANESTHESIOLOGY ANESTHESIOLOGIST [facility] 2022-11-04 11:36:18 LAJIYcaPOu0QOJTJnXlL+K1sGWF9mu2X 9v3iUEw1SMPjPdaa7ypZq5RV2mwyUzv7 1539-21-19P36:36:18 Problem: Falls, Risk ofGoal: Absence of fallsOutcome: Resolved Problem: Complications of hemorrhage (risk or actual)Goal: Absence of active bleedingOutcome: ResolvedGoal: Absence of complicationsOutcome: Resolved Problem: PainGoal: Control of pain at or below patient's documented comfort goalOutcome: ResolvedGoal: Reduction in pain sensationOutcome: Resolved Problem: Infection RiskGoal: Absence of infectionOutcome: Resolved 48734-4Yboj of care mlppMQ6353-67-53B18:36:24Plan of care noteTXT1.2.840.200926.1.13.104.2 .7.2.641457|[id number] e for patient fqjt57935-7HxglKV784011284Sehesa T Girod RN[address] CbqvOfbqulqbzVonwkrdjgNFQV831030 1447QTHFNADHZUITACGCEEZMFT3523-6 :36:241.2.840.966147.1.72 .3.15|1.2.840.391019.1.13.104.2. 7.2.727879_[id number] Ping Lyons RN [facility] 2022-11-04 06:48:53 G95wh8wrjgjD8wIgIbo3+nbw/c/+m3hl iWEgwo39cOYTJ3v/9Asb6kYa+CiI7hPq 9761-25-43B84:48:53 Problem: Falls, Risk ofGoal: Absence of fallsOutcome: Progressing as expected Problem: Complications of hemorrhage (risk or actual)Goal: Absence of active bleedingOutcome: Progressing as expected Problem: PainGoal: Control of pain at or below patient's documented comfort goalOutcome: Progressing as expected Problem: Infection RiskGoal: Absence of infectionOutcome: Progressing as expected 33557-8Yyfx of care eexvOM9799-05-69Z98:48:59Plan of care noteTXT1.2.840.406356.1.13.104.2 .7.2.179626|[id number] e for patient eeag82756-4YjfhRMHSMJKGTC[address] BvpcWonepmuznJocswigybZAIX778617 4321XIBQWOKLYVSSLZVGOTFXNE7669-9 8-17T06:48:591.2.840.272587.1.72 .3.15|1.2.840.072362.1.13.104.2. 7.2.727879_[id number] [facility] 2022-11-03 13:09:18 MIUTL/QxP+SNMwuBXBZTcH83kChiY+JH D3KPHZ+CIJvqc8mQiqeRMwBqcitQPjZl 3638-06-76W21:09:18Summary: Breast Care for non- mothers Images from the original note were not included.This note was copied from a baby's chart.Stopping Breast Milk Production Breast stimulation encourages milk production. The more milk is removed the body responds by making more milk. When the breast stays full it signals the body to stop making milk. Breast fullness and swelling can be painful. This is normal and may last 3- 4 days. Helpful tips to stop breast milk production Do not bind your breast. This can lead to plugged ducts, mastitis, and increased pain.Wear a supportive bra day and night. Nursing pads are helpful for leaking milk.Talk to your provider about over the counter pain relievers such as ibuprofen or acetaminophen to help relieve pain. Ice packs or cold cabbage leaves on the breast can help decrease swelling and pain. Use 3-4 times per day for 15-20 minutes. Drink when you are thirsty. Drinking less fluids does not help and can make you dehydrated. If your breasts become very uncomfortable express just enough milk to reduce the pressure. Call your healthcare provider Call your healthcare provider right away if you have any of the following:A fever or chillsExtreme tiredness and body aches, as if you have the fluBurning or pain in one or both breastsRed streaks on a breastHard or lumpy spots in one or both breastsA feeling of warmth or heat in one or both breastsIt can take some women up to 10 days or longer for the breasts to stop making milk. Please contact your primary care provider for questions or concerns. If you have a fever over 101?F (38.3?C), pain and/or redness in a specificarea of the breast, feel like you are coming down with the flu, it couldbe a sign of breast or other infection. It may be temporarily necessaryto remove a majority of the milk from the breasts by hand expressionor pumping to help the infection clear, along with the use of antibiotics.Contact your primary care provider. Brendan FONG RN, IBCLC 32029-5Jlezzgdpzn OtnlLN4369-41-72L24:10:07Obstetr ics NoteTXT1.2.840.131592.1.13.104.2 .7.2.828197|[id number] e for patient habc57996-6OsriIP200380049Fldsrg K Randolph RNUTMBUTMB - [address] GtkmCkxmjcpnjNsjuabrgfAPOE260579 8933VUPCTYKSZRSZRNFYBGKJFR5771-6 3:10:071.2.840.843694.1.72 .3.15|1.2.840.608983.1.13.104.2. 7.2.727879_[id number] Brendan Sim RN [facility] 2022-11-03 07:41:03 QJyNF+IF4MV0UlJqFkOpnTI+74Lx0T9/ 9fA4CD6KRR8uP2mq/wogIDwx2j7fKb3p 3067-04-18F59:41:03 Problem: Falls, Risk ofGoal: Absence of fallsOutcome: Progressing as expected Problem: Complications of hemorrhage (risk or actual)Goal: Absence of active bleedingOutcome: Progressing as expectedGoal: Absence of complicationsOutcome: Progressing as expected Problem: PainGoal: Control of pain at or below patient's documented comfort goalOutcome: Progressing as expectedGoal: Reduction in pain sensationOutcome: Progressing as expected Problem: Infection RiskGoal: Absence of infectionOutcome: Progressing as expected 62251-3Esse of care kyfbLB4118-06-08J18:41:06Plan of care noteTXT1.2.840.061596.1.13.104.2 .7.2.944415|[id number] e for patient eywx71128-4VsqeLI566143905Kojylc E Yarbrough RN[address] AuekQvufmohsmLaezshpcuAOOW882452 3690KXYZVWGYLVLVFEULNMADXH1440-2 8-16T07:41:061.2.840.895069.1.72 .3.15|1.2.840.164208.1.13.104.2. 7.2.727879_[id number] Aishwarya Merchant RN [facility] 2022-11-02 21:17:51 rbGwbQa7fB7qVNtws/bK8veuuTv0WLlb KcpdCbVK6/4rTilgHv5a+LIUr7zilm+t 4804-00-76M17:17:51 Addendum created 11/02/222116 by Ever Hines MD Intraprocedure Event edited 12923-4Eghzkmws BdczeopvHJ4755-15-47Y70:17:51Add endum DocumentTXT1.2.840.698057.1.13.1 04.2.7.2.016983|[id number] lable for patient acul74580-6HyggIXHV-UCRJQGGBUSVK ANESTHESIOLOGISTAN-ANESTHESIOLOG Y ANESTHESIOLOGIST[address]TX[address] 0928UQCDLDCEZIFBUGASMLYKIK0199-3 8-15T21:17:511.2.840.036557.1.72 .3.15|1.2.840.143818.1.13.104.2. 7.2.727879_[id number] -ANESTHESIOLOGY ANESTHESIOLOGIST [facility] 2022-11-02 21:16:50 YOkgDQ0osG97oLlJ/zz5EXH7evhn9i1l FGw1Ap6sA5rTOWBkZO/VWqYMejK9VaWL 7865-68-59N87:16:50 Addendum created 11/02/222115 by Ever Hines MD Intraprocedure Event edited 88541-2Azknkloo SgxedfgvWV1949-91-55P52:16:50Add endum DocumentTXT1.2.840.522572.1.13.1 04.2.7.2.625084|[id number] lable for patient obfn13937-2GdbxYCMN-LCEIJBSMJJXL ANESTHESIOLOGISTAN-ANESTHESIOLOG Y ANESTHESIOLOGISTUTMB[address]tonTXTX[address] 3655NCODRBVJEBDZBKJYBZKAPH2334-3 8-15T21:16:501.2.840.136419.1.72 .3.15|1.2.840.730370.1.13.104.2. 7.2.727879_[id number] AN-ANESTHESIOLOGY ANESTHESIOLOGIST [facility] 2022-11-02 20:29:07 vOTOUBgRWI0u50Y72WZ5wpEUNW3MGVJ7 5+hD6jS1+ZN5yzV5Sh8MFiu12UQMZXBx 0234-33-78M62:29:07 Problem: Intrapartum process (including labor pain)Goal: Absence of or reduction of complications of laborOutcome: ResolvedGoal: Able to cope with painOutcome: ResolvedGoal: Adequate to move to next level of careOutcome: ResolvedGoal: Reduction in pain sensationOutcome: Resolved Problem: Falls, Risk ofGoal: Absence of fallsOutcome: Progressing as expected Problem: Complications of hemorrhage (risk or actual)Goal: Absence of active bleedingOutcome: Progressing as expectedGoal: Absence of complicationsOutcome: Progressing as expected Problem: PainGoal: Control of pain at or below patient's documented comfort goalOutcome: Progressing as expectedGoal: Reduction in pain sensationOutcome: Progressing as expected Problem: Infection RiskGoal: Absence of infectionOutcome: Progressing as expected 61189-0Hlcy of care wibxDT2602-84-05V69:29:14Plan of care noteTXT1.2.840.091452.1.13.104.2 .7.2.307104|[id number] e for patient cqfe23268-3FanuBT160995097Exsiky L Soell RNUT[address] StreetTXTX[address] 2401KCLFGTUABBCCNQSKTHZBQB0870-3 8-15T20:29:141.2.840.122917.1.72 .3.15|1.2.840.254952.1.13.104.2. 7.2.727879_[id number] Debby Shultz RN [facility] 2022-11-02 20:27:55 dcZJ8PyvD2XJIjVwlZHM8h2dYUB8O5ge meHh64PUeGJOAI25zu5OIOgTo84UvwJB 8180-88-57U25:27:55 Problem: Intrapartum process (including labor pain)Goal: Absence of or reduction of complications of laborOutcome: ResolvedGoal: Able to cope with painOutcome: ResolvedGoal: Adequate to move to next level of careOutcome: ResolvedGoal: Reduction in pain sensationOutcome: Resolved 99709-1Cous of care ejsrAO8527-99-82M25:27:58Plan of care noteTXT1.2.840.342114.1.13.104.2 .7.2.230467|[id number] da for patient wgun13351-2ZsewCIUPOGTRZJ[address]vdGal[address]on[place]veston[place] 1370ZKWEXMYPGHAVJIQTFGWOPC0976-2 11-02T20:27:581.2.840.012092.1.72 .3.15|1.2.840.993552.1.13.104.2. 7.2.727879_[id number] [facility] 2022-11-02 19:16:21 YIv6rrE1nfcLMmrxXKkkHpD2zn4r6uk4 /dmuqRd8CFYFTYjAwOVJha2QBhviCyQ0 4702-07-63V27:16:21 Delivery Date: 11/02/2022 Delivery Time: 6:36 PM DELIVERY BY SECTIONDate of Service: : 11/02/2022 at 6:36 PM Admitted for: induction at 36 wks due to non-reassuring FHT, Primary Lower uterine tranverse section with no extension, no BTL, Pfannenstiel, Closed with suture, EBL 650 cc, No complications, Findings: NoneDelivery Summary [place] Sex: male [place] Weight: 2950 g 1 Minute 5 Minute 10 Minute Totals: 8 9 Primary Indication:Roselyn García is a 27 year old female @ 36 6/7 admitted for induction due to non-reassuring FHT. Patient ruled in for gestational hypertension intrapartum. Intrapartum course was complicated with Cat II strip (prolonged decels, late decels, and variable decels) and remote from delivery. The patient was taken to the operating room for a primary section due to: Nonreassuring Conditon - at 37w0d weeks.Procedures:Primary Lower uterine tranverse section with no extension Specimens Removed: PlacentaSurgeon: Ramona Thompson MD Report:Prophylactic antibiotic, Ancef and Azithromycin was given before patient was taken to OR. After arrival to the operating room patient was placed in the supine position with left lateral tilt after administration of spinal anesthesia. Decel down to 60s also noted. Decision made to proceed with splash prep. Splash prep with betadine done. General anesthesia has to be administered as patient failed the mely test. LaparotomyA pfannenstiel incision was made through the anterior abdominal wall with #10 scalpel. The incision was extended sharply with the #10 scalpel through the subcutaneous tissue to the level of fascia. The fascia was entered sharply with a #10 scalpel (Pfannenstiel) in the midline and extended bluntly. The rectus muscles were in the midline bluntly with digits. The peritoneum was then entered bluntly. The peritoneal incision was then extended superiorly and inferiorly under direct visualization with care being taken to avoid bladder and bowel. No adhesions were noted. The peritoneal incision was enlarged bluntly by lateral traction from the surgeon's and first officer's hand.Delivery A bladder flap was developed by grasping with Swazi forcep and enter with Metzenbaun scissor. Then sharp and blunt dissection with Metzenbaum scissor and fingers were performed. A low transverse hysterotomy was made then with #10 scalpel and extended laterally and cephalad with fingers in a low transverse fashion with Manu Alexander technique with care being taken to avoid injury to the fetus. The amniotic (membranes) were then entered , and the amniotic fluid was noted to be clear . The head was delivered manually without aid of vaginal hand. The head was flexed and delivered through the hysterotomy incision in a non-traumatic fashion with aid of fundal pressure applied by the oncology physician assistant surgeon . The body was delivered with traction on the head along with fundal pressure. After delivery of body-bulb suction was performed from oropharynx and nostril with removal of clear amniotic fluid. Fetus was delivered in cephalic presentation. With delivery the baby, no extension was noted. Placenta was delivered spontaneously with steady traction on cord and manual separation of placenta from uterine wall.ClosureUterine cavity was cleaned after placental delivery with lap sponge x 2. The hysterotomy was closed in one layer with stitches using 1-0 Monocryl with continuous locking stitches. Hemostasis was achieved as needed with electrocautery and figure eight suture ligation. The ovaries/tubes/uterine surface were evaluated. They were found to be normal.Rectus muscle was re-approximated with 2-0 Monocryl. Fascia was closed with running stitches using 0-Biosyn . Hemostasis was checked for and found to be adequate. The subcutaneous tissue was irrigated and hemostasis was achieved where needed with electrocautery. The skin was then closed with subcutaneous stitches using 3-0 Vicryl sutures. The incision was cleaned and covered with a compression bandage and the procedure considered to be complete at this time.Intraoperative Complications: NoneUterotonics: 30 units of pitocin mixed in 500 cc of LRDisposition:The patient tolerated the procedure well. She was recovered in the Labor and Delivery Room with routine care in stable condition, with a contracted uterus and normal transvaginal bleeding. The infant was sent to Transition Nursery. The placenta was not sent to pathology.Ramona Thompson MD 11/02/2022 7:24 PM 93191-2Inisk and delivery summary fcebTF7742-05-66X68:44:01Labor and delivery summary noteTXT1.2.840.205138.1.13.104.2 .7.2.414300|[id number] e for patient akjc85404-1RaetAIRRASVIVB[address] HpunKqshqpzqsFpilaquajQRGV970141 7967AIIQYIAZQUUASSEAIDIVUR9416-8 16T08:44:011.2.840.262341.1.72 .3.15|1.2.840.328467.1.13.104.2. 7.2.727879_[id number] [facility] 2022-11-01 21:56:29 88qCxTeY0GqWblfMMS6JqCfkB0fUKmmM XYEYkXu/lpGOQGWKTS2NtdIf6oL5I7Y/ 5928-14-58Q71:56:29 Name/ MRN / Age / Gender:Roselyn García, [id number] year old female BMI:Estimated body mass index is 36.49 kg/m? as calculated from the following: Height as of 10/29/22: 1.549 m (5' 0.98"). Weight as of 10/29/22: 87.5 kg (193 lb). Allergies:Patient has no known allergies. Last Vitals:BP Readings from Last 1 Encounters: 11/01/22 132/90 Pulse Readings from Last 1 Encounters: 11/01/22 98 SpO2 Readings from Last 1 Encounters: 11/01/22 99% Date of Surgery: 11/01/2022Surgeon: * No surgeons listed *Procedure: LABOR CONSULTOR Location: [place] [facility] OUT OF OR - OR LOCATION Anesthesia HistoryAnesthesia History NegativePrevious Anesthetics/AirwaysCardiovascula rNegative Cardiac ROS PulmonaryNegative Pulmonary ROS Neuro/Musculoskeletal(+) Anxiety GI/Hepatic(+) GERD HematologyComments: Lab Results Component Value Date/Time HCT 28.8 (L) 11/01/2022 07:57 PM HCT 26.2 (L) 10/30/2022 07:44 AM HCT 26.8 (L) 10/05/2022 04:37 PM (+) Anemia RenalNegative Renal ROS SkinNegative Skin ROS(+) Current IV access Endo/Other Negative Endo/Other ROS Other OB/GYNComments: Induction of laborP: 4Gestational Age: 36-6 Pediatric Preoperative Medication InstructionsContinue taking all prescribed medications except:EVAN inhibitors, ARBs, diuretics, all oral diabetes medicationsAnticoagulant Therapy: Defer to surgeonsInsulin: Take 1/2 dose the night prior to surgery. Hold on DOS. Phentermine: Alert [facility] anesthesiologistSGLT2 Inhibitors: "gliflozins" to be held for 3 days prior to elective surgeries MAC Cases: Continue taking EVAN inhibitors and ARBs ASA ClassificationASA: 2 Current Medications:No outpatient medications have been marked as taking for the 11/01/22 encounter (Hospital Encounter). Previous Surgeries: No past surgical history on file.Anesthesia Physical ExamGeneralno apparent distress and alert and oriented x 3patient is not obtunded Neuro/Psychnonfocal Dental Abdominal (+) gravid Airway Mallampati score:IIITM distance:> 5 cmNeck ROM: fullMouth opening:normal(+) Normal facies Extremity Pulmonarypulmonary exam normal Other Cardiovascularcardiovascular exam normal Anesthesia Plan ASA Status: 2 Plan discussed during pre-op evaluation: General, Epidural and Spinal 62002-8Iefcmctnjnkptc Preoperative evaluation and management hpquYK6314-63-41V40:00:12Anesthe siology Preoperative evaluation and management noteTXT1.2.840.021260.1.13.104.2 .7.2.218325|[id number] e for patient ymup15155-4Rqhdtzjr operation noteLNUT[address] NzjdKhhikueygJskvwkasdTLFZ761344 7552PBXJUXGVIGTVHVBTZQMXRZ8598-1 11-01T22:00:121.2.840.522094.1.72 .3.15|1.2.840.897801.1.13.104.2. 7.2.727879_[id number] [facility] 2022-11-01 19:30:06 Iv5c2r6g1bCHPtZXYWY/yt14AiEQm4QZ Trrf+dvEtndbRUWfEFYj+kg/JG1wC6yT 2519-33-73K74:30:06 Arrived on [facility] L&D unit:Arrived to [facility] Date & Time: 11/01/2022 1:07 PMOncall Physician: Amy Physician:Isa COMPLAINT: Leakage of fluid HISTORY OF PRESENT ILLNESSRoselyn García is a 27 year old female with leakage of fluid since last night. Pt states she did feel a gush of fluid last night and underwear felt wet every time she went to the bathroom through the night. Pt states she called the office this AM and was advised by RN at office to come in and be evaluated. LAST FOOD INTAKE:1800LAST DRINK INTAKE:1830MEDICAL HISTORY Past Medical History: Diagnosis Date Anemia 2014 during Anxiety Chlamydia 2013 tx'd Generalized anxiety disorder 06/18/2022 LGSIL on Pap smear of cervix 12/10/2016 SURGICAL HISTORYNo past surgical history on file.FAMILY HISTORYFamily History Problem Relation Age of Onset Cancer Father Diabetes Maternal Aunt Diabetes Maternal Grandmother Arthritis NoFHx Asthma NoFHx defects NoFHx Colon Cancer NoFHx Breast Cancer NoFHx Ovarian Cancer NoFHx Uterine Cancer NoFHx Depression NoFHx Genetic NoFHx Heart NoFHx High cholesterol NoFHx Hypertension NoFHx Mental retardation NoFHx Neurological NoFHx Osteoporosis NoFHx Psychiatry NoFHx Other - see comments NoFHx ALLERGIES: Patient has no known allergies.MEDICATIONSHome Medications: Medications Prior to Admission Medication Sig Dispense Refill Last Dose ferrous sulfate (IRON, FERROUS SULFATE,) 325 mg (65 mg iron) tablet Take 1 tablet by mouth in the morning and 1 tablet in the evening. 60 tablet 1 Taking busPIRone 7.5 mg tablet Take 1 tablet by mouth in the morning and 1 tablet in the evening. 60 tablet 1 Not Taking metoclopramide HCl 10 mg tablet Take 1 tablet by mouth in the morning and 1 tablet at noon and 1 tablet in the evening. Take before meals. 30 tablet 2 Not Taking ondansetron 4 mg tablet Take 1 tablet by mouth every 8 (eight) hours as needed for Nausea and Vomiting (N/V). 30 tablet 1 Not Taking docusate (COLACE) 100 mg capsule Take 1 capsule by mouth in the morning. 30 capsule 1 Not Taking FBW07-XJ-ub0-rgl-tis-kkbs oil ( GUMMY) 400 mcg-35 mg -25 mg-5 mg Chew Take 1 tablet by mouth daily. She may have any brand covered by her insurance. 30 tablet 7 Not Taking HOSPITAL MEDICATIONSCurrent Facility-Administered Medications Medication Dose Route Frequency Last Rate Last Admin carboprost (HEMABATE) injection 250 mcg 250 mcg Intramuscular Q2HPRN D5W-LR IV infusion 1,000 mL 1,000 mL IV Infusion TITRATE FENTanyl PF (SUBLIMAZE (PF)) injection 100 mcg 100 mcg Slow IV Push Q1HPRN lactated ringers IV infusion 500 mL 500 mL IV Infusion ONCE lactated ringers IV infusion 500 mL 500 mL IV Infusion PRN - SEE INSTRUCTIONS lactated ringers IV infusion 500 mL 500 mL IV Infusion PRN - SEE INSTRUCTIONS lidocaine 1% (PF) (XYLOCAINE) injection 0.3 mL 0.3 mL Infiltration PRN - SEE INSTRUCTIONS methylergonovine (METHERGINE) injection 0.2 mg 0.2 mg Intramuscular Q4HPRN miSOPROStoL (CYTOTEC) tablet 200 mcg 200 mcg Rectal PRN ondansetron (ZOFRAN (PF)) injection 4 mg 4 mg Slow IV Push Q8HPRN oxytocin (PITOCIN) 30 units in NS 500 mL IV infusion 600 mL/hr IV Infusion PRN oxytocin (PITOCIN) 30 units in NS 500 mL IV infusion 2-40 lobito-units/min IV Infusion TITRATE sodium citrate-citric acid (BICITRA) 500-334 mg/5 mL solution 30 mL 30 mL Oral PRE-PROCEDURE ONCE sodium citrate-citric acid (BICITRA) 500-334 mg/5 mL solution 30 mL 30 mL Oral PRE-PROCEDURE ONCE terbutaline (BRETHINE) injection 0.25 mg 0.25 mg Subcutaneous PRN tranexamic acid (CYKLOKAPRON) 1,000 mg in NaCl 0.9% (NS) 250 mL piggyback 1,000 mg IV Piggyback ONCE PRN Social History Tobacco Use Smoking Status Former Types: Cigarettes Start date: 12/02/2014 Quit date: 11/25/2016 Years since quittin.9 Passive exposure: Never Smokeless Tobacco Never Social History Substance and Sexual Activity Alcohol Use Never Social History Substance and Sexual Activity Drug Use No REVIEW OF SYSTEMS:See Nurses Flowsheets Specimens Obtained:KENDALL ZHOU PREPUrine dip: see flowsheet SVE:2/50/floatingOBIX EFM Strip:Fht's Cat I strip, noted decel at 1443, baby recoverdToco: irregular contractions BP (!) 131/91 | Pulse 102 | Temp 36.7 ?C (98 ?F) (Oral) | Resp 17 | LMP 02/16/2022 | SpO2 100% REVIEW OF LABORATORY, PATHOLOGY, AND RADIOLOGY DATALab results:CBC BMP PT/INR WBC (10*3/?L) Date Value 10/30/2022 10.42 NA (mmol/L) Date Value 04/08/2022 136 No results found for: "PT" RBC (10*6/?L) Date Value 10/30/2022 3.25 (L) K (mmol/L) Date Value 04/08/2022 3.5 INR (no units) Date Value 09/14/2016 1.2 PLT (10*3/?L) Date Value 10/30/2022 262 CALCIUM (mg/dL) Date Value 04/08/2022 9.7 HGB (g/dL) Date Value 10/30/2022 8.4 (L) CL (mmol/L) Date Value 04/08/2022 103 aPTT HCT (%) Date Value 10/30/2022 26.2 (L) BUN (mg/dL) Date Value 04/08/2022 10 APTT Patient (Seconds) Date Value 09/14/2016 27 CREATININE (mg/dL) Date Value 10/30/2022 0.33 (L) GLUCOSE (mg/dL) Date Value 04/08/2022 101 CO2 TOTAL (mmol/L) Date Value 04/08/2022 19 (L) Dr. Thompson notified of patient's presentation to triage on 11/01/22 at 1411. PLAN:1. Fern test, US with SHRUTHI, BPP2. Induction due to decel noted 13030-2Jzmwn SblpYU1008-24-91V09:38:25Nurse NoteTXT1.2.840.026522.1.13.104.2 .7.2.202467|[id number] e for patient axmx38139-5GbaiVIHJHHDSRL[address]TX[address] 3814FWNWBJZOEXSREAQWDBOQCD7626-8 8-14T19:38:251.2.840.919673.1.72 .3.15|1.2.840.553554.1.13.104.2. 7.2.727879_[id number] [facility] 2022-11-01 09:40:42 vLSzYQnjz3n6Nv8foNA0RPzyxdw0OdJX 2haNNfmE5dyXtJzP0Q652KjeZ/DYHSIT 3988-19-71N93:40:42 Spoke with patient,states that she leaked a gush of fluid around 6pm yesterday and has been having irregular contractions, approx 4 an hour. Was dilated at a 2 last o/v. Patient states that her underwear are staying wet. Denies bleeding. Good movement. Patient was recently seen at L&D for contractions on Tuesday. Notified Dr. Thompson. Advised patient to go to L&D for evaluation. Patient going to arrange childcare and head over to the hospital.Shandra Rodriguez RN 11/01/2022 9:52 AM 08008-0Kgdwkmnyb encounter WfrjZV9983-30-52A55:53:41Telepho ne encounter NoteTXT1.2.840.135226.1.13.104.2 .7.2.251929|[id number] e for patient kyzw48711-4ObaqLVLMEHJKFZ[address]TXTX[address] 3415MFHYUNQTNGTPKLGZUFFFPV6366-6 8-14T09:53:411.2.840.646260.1.72 .3.15|1.2.840.217219.1.13.104.2. 7.2.727879_[id number] [facility] 2022-11-01 09:24:49 9zlYmnJBHz2+mi7wQhHI9d8xV80auCIe KJJp+8bf9UQcs0WzWUaAVRl/kB6RMB4a 2579-55-24L47:24:49 Patient is calling she states she is 36 wks 6 days . She states she started leaking fluid yesterday at 630 pm. She states it was clear. She is having irregular contractions but no other symptoms. She states she went in on Tuesday to labor and delivery and she did not want to go back unless necessary, nurse notified. 72748-6Ndtmcqjcn encounter ObrfOW3412-96-65Y57:29:10Telepho ne encounter NoteTXT1.2.840.456139.1.13.104.2 .7.2.900684|[id number] for patient dlgg98736-1NornEC00488517Dltka S Herivelisse[address] FdpjOnxqyeqhgAzuigfjjsZTTM141034 1690VZBAHKELOKKVLRECDVKPSI7656-8 8-14T09:29:101.2.840.289572.1.72 .3.15|1.2.840.176848.1.13.104.2. 7.2.727879_[id number] Angela De Leon [facility] 2022-10-29 22:58:53 Vzb8xkbWw43THWVh3q9Jtvqi+sQG3gCE VXfb1DNEr7UZzdHordrV2uZGl5ZDKV7u 4639-53-49B66:58:53 Pt reports contractions more consistent since 7:30pm. Pt stated she is , 36w3d. Patient of Dr. Thompson. Report to GENE García Pt transported to L&D via . 64133-6Vgpptvuqy department IhvbEE6841-98-72A74:00:38Emergen cy department NoteTXT1.2.840.578358.1.13.104.2 .7.2.644449|[id number] e for patient qwtx83445-4NkbgUA951767367Bofhbn D Roman RN[address] 5692IBBJCIHIGYICEYDGLTGFJA3884-5 10-29T23:00:381.2.840.709186.1.72 .3.15|1.2.840.357717.1.13.104.2. 7.2.727879_[id number] Alix Rick RN [facility] 2022-10-29 12:45:00 ONb+RX7C83AXTwjEcCmxKFk0yNT75mPI PJMrEfHARh3XpAHR1GeDQYf6Dl7EoacM 7686-76-28M28:45:00 Age: 27 year oldGA: 36w3d -Anxiety: LEEANN-7 score 0- was seen on L&D for threatened labor and received BMZ with benefits today. SVE 2/50/high on discharge. Still has irregular contractions (sometimes close together, sometimes far apart). SVE remained unchanged at 2/50/high. -States that she feels like her perineum is swollen and feels lots of pressures there. No abnormalities noted on exam. Patient reassured.- GBS neg- 1 hr abnormal: have not done 3 hr gtt yet- Daily kick counts and labor precautions given- follow-up [place] 1 [place] [address]-6Lqeemwua lipbSF3980-21-75K40:34:28Progres s noteTXT1.2.840.256266.1.13.104.2 .7.2.949161|[id number] e for patient szke32265-6CiqpQDGRZKKDWN[address]Gal[address]on[address]veston[place] 0731YKTCXNAYSHCDYVSYQHTOSJ4233-3 3:34:281.2.840.861875.1.72 .3.15|1.2.840.843821.1.13.104.2. 7.2.727879_[id number] [facility] 2022-10-27 11:45:28 pZPtFB1yKNuPu0zE9aMUQHbRzWTMWg56 lJysMvA8GhWgo1gaTi9BXMSMigm/oMUb 3411-89-13O46:45:28 Spoke with patient. Patient states she has been gage every 5-10 since 7 AM. Patient states contractions are getting worse. Patient denies loss of fluids. Patient states "baby has not moved as much". Patient advised to be seen in labor and delivery. Patient verbalized understanding. Report called to Aide in L&D. Benny Og RN 10/27/2022 11:47 AM 28042-9Vokbhbrsc encounter LjgfXS2751-41-30F54:47:17Telepho ne encounter NoteTXT1.2.840.213698.1.13.104.2 .7.2.554319|[id number] e for patient jzks07162-3ZiosNJ490732944Vjhduy y Collins RN[address]vd[address]on[place] 8585AUDBPMPJLDULYNAYUXMDUB5733-6 8-09T11:47:171.2.840.086382.1.72 .3.15|1.2.840.175990.1.13.104.2. 7.2.727879_[id number] Benny Og RN [facility] 2022-10-27 11:29:43 a1+O8gM31lepYiFbYQFXvDLO6HtrGiqm i/jMSerqOPzLh3YNxUIurOczN7ogEqhI 0206-77-47O17:29:43 Pt calling to notify clinic she on her way to L&D due to contractions or should she go into [place] office 87664-6Ztxdhyxyo encounter GdaaXI1064-53-44C00:31:33Telepho ne encounter NoteTXT1.2.840.228144.1.13.104.2 .7.2.057606|[id number] e for patient wmnz66161-8XqbfEP916246567Zgtnr [address] RfkqPcjfdemwiKtryqvfumQHLJ320385 2772KONNTEDVHNWGNUAWVRZPOK3615-6 8-09T11:31:331.2.840.735101.1.72 .3.15|1.2.840.498862.1.13.104.2. 7.2.727879_[id number] Lizette Ronald [facility] 2022-10-25 11:11:14 GdEjzW+gEz8l/pFp9dMvBbcI8hQhOn/C zdV5Ry3rcxOaN6qFrQsElKoHvXbr+H/f 3921-41-52Z62:11:14 Pt stated that she is having cx 10 minutes apart. Getting stronger. And lower back pain. Advised pt to go to L&D to be evaluated. Pt verbalized understanding. Called L&D. Report given to Christy. Verbalized understanding. SHEA MAHMOOD RN 10/25/2022 11:13 AM 73835-1Stluzqbqh encounter QbjiYA2596-16-53A26:17:21Telepho ne encounter NoteTXT1.2.840.626404.1.13.104.2 .7.2.013513|[id number] e for patient bqdy80659-6TfpoPJ586769033Kmkznh ashley Mahmood [address] 4550RGGPMHFUJESRMCMPLWTYXZ4368-9 1:17:211.2.840.660547.1.72 .3.15|1.2.840.355941.1.13.104.2. 7.2.727879_[id number] Sheamaite Mahmood [facility] 2022-10-25 10:47:39 /yAKB+bMg9Xm6qH/twYXuFmocgOTi8fQ SKDjyWmSaRvnr13sJ9tEhyvY6M1W6JvC 5959-76-40T33:47:39 Patient is calling stating she is gage, she is 36 weeks, she is asking should she come into the clinic or go straight to the hospital, she states when she goes to the hospital they tell her she needs to go to the clinic. Call [phone]. 86294-8Mtxdbbzkn encounter GstqPY5349-65-58Z54:49:37Telepho ne encounter NoteTXT1.2.840.909407.1.13.104.2 .7.2.607454|[id number] e for patient zzqv43204-4WoapGF741346076Zlfwib a M Mosley[address] 2199IQICJEMUNPITDOZQGGQCBQ4315-8 8-07T10:49:371.2.840.040021.1.72 .3.15|1.2.840.431625.1.13.104.2. 7.2.727879_[id number] Farideh Donovan [facility] 2022-10-22 10:00:00 5FJ08YA06JKcAkruHtgJqErp2WEmzVY8 RH/MwuXSWSjgGOqK3HslqMDZsZ4o0/n2 8279-59-79L64:00:00 Age: 27 year oldGA: 35w3d Vaginal spotting-Was seen on labor and delivery on 10/18/2022 for vaginal spotting. - Reports vaginal spotting about 2 days ago. -No blood noted on exam. Vaginal discharge noted. Vaginal path collected. Last sexual intercourse was one half ago. Recent GC/CT negative.Irregular contractions-SVE 04/14/high-Strong labor precautions given1 hour GTT abnorma- 3-hour GTT ordered, not yet completed. Encourage patient to get it done KATE.Ultrasound on 10/07/2022 showed appropriate interval growth. EFW 5 pounds 7 ouncesDesires induction at 39 weeks. Tentatively plan for 11/16/2022 unless clinically indicated otherwiseThis reviews what Dr. Thompson talked about at your 36 week talk:1. Go to Labor and Delivery when your contractions are 5-7 minutes apart and you have been able to time them for an hour. If you live more than 30 minutes from the hospital, then go when they are 10 minutes apart and you have been able to time them for an hour.2. BUT, there are 4 reasons to go to Labor and Delivery REGARDLESS of what else is happening, whether you are gage or not: 1. If your water breaks - - - it may be a gush or a constant trickle. If you are not sure, always come in to be checked. 2. Bleeding like your period. 3. If your baby's movements are less than 10 in an hour. If you are concerned this might be the case, drink a tall glass of cold fluids, lay down on your side on the couch or your bed and see how long it takes to note 10 movements - if less than 10, this needs to be evaluated immediately. 4. Contractions or Pain that is continuous. Normal labor contractions last only 45 seconds - 1 minute.GC/CT and GBS obtained, CBC orderedZika precautions reviewedContraception PP: CondomsDelivery consent signed todayRTC [place] 2 [place] [address]-0Pmsqgwbf fuvlPR0638-07-09C32:13:25Progres s noteTXT1.2.840.954861.1.13.104.2 .7.2.324887|[id number] e for patient ndcu99289-2AkxfLKKMPXENYS[address] JzuoHjbfffiivZstscgislPAQW929170 2489DKCJYWXIOVBBODHTIAKOJB1248-0 :13:251.2.840.505937.1.72 .3.15|1.2.840.410180.1.13.104.2. 7.2.727879_[id number] [facility] 2022-10-18 16:50:50 ZUPHLdx5dmkfxNJXWN4pAr6DUqm0h8A8 GnwfZgUmfFb+mkXvgoURwa9Rscv2S5QK 6194-55-07Q82:50:50 27 Y/O G1 P 4024 at 34+6 weeks with lion gestation. CC: ctx since last night; scant amount of spotting. EFM and toco placed. VSS, Afebrile. SVE: closed, 50%/ballotable. NO blood or fluid noted on glove. FHT's 140-150's with accels; cat 1 tracing; strong movements noted per palpation. One ctx noted in 1.5 hours of monitoring; Reported to Dr Thompson; orders received to discharge home with labor precautions and kick counts. Follow-up as scheduled unless symptoms worsen or change. ssociated attestation - Ramona Thompson MD - 10/18/2022 5:55 PM CDT Agreed with RN: No bleeding noted on exam. Strip reactive and reassuring. Not in labor. GC/CT and vaginal pathogens negative on 10/07/2022. Stable for discharge home with strong precautions and follow-up as scheduled unless clinically indicated otherwise. Ramona Thompson MD 10/18/2022 5:55 GO40065-9Xnazs QztuPQ2189426Pcv, Vien Cam1.2.840.170147.1.13.104.2.7.2 .089236VmxZuwwBywXJ4512-96-61H92 :55:49Nurse NoteTXT1.2.840.666822.1.13.104.2 .7.2.739736|[id number] e for patient stzt38331-1UrvnAM791124923Vuhxtc L Soell [address] 5686NPXVIJTVSLLYFYWAAYUSCJ5254-7 7-31T17:55:491.2.840.353112.1.72 .3.15|1.2.840.249110.1.13.104.2. 7.2.727879_[id number] Debby Shultz RN [facility] 2022-10-18 08:43:27 o12KwrAhOoWsCNiayIy/db27xuQSKChq igArn5GJ0ozxL/A1gwOfc+41jm3+9boN 2566-01-45F86:43:27 Report called to L&D, given to Susi.Shandra Rodriguez RN 10/18/2022 8:43 AM 48888-0Brdjiujkt encounter YyliFY1268-44-08Y52:44:10Telepho ne encounter NoteTXT1.2.840.390557.1.13.104.2 .7.2.316725|9830344324WNKkipjizp e for patient bzyg35760-7GcicMRLMMYLGSH[address] 1023QQUOTGJBAEYQPTAFRUPYDI1349-7 7-31T08:44:101.2.840.315684.1.72 .3.15|1.2.840.775892.1.13.104.2. 7.2.727879_[id number] [facility] 2022-10-18 08:04:30 XJI7TKLNxNmAJ9vYFp+rCa683aFWerhp Am5oP1Hsy2aEsT9zsIhNJvcaUsURJDZ3 0954-71-21C58:04:30 Spoke with patient, states that she has been having cramping onset last night, had spotting on Tuesday with wiping, none since. Cramping continuous about 18-20 minutes apart. Denies having any other symptoms. Good movement. Per Dr. Thompson patient to go to L&D for evaluation. Patient verbalized understanding.Shandra Rodriguez RN 10/18/2022 8:41 AM 73685-8Itsgeytef encounter UefyAF1519-74-78E46:44:10Telepho ne encounter NoteTXT1.2.840.163509.1.13.104.2 .7.2.280904|6693593811XVNcunytnx e for patient jhqc25085-5RdtpTRFPQDHGMB[address] OhugZkbsncpblNhubuknoaLUTH861025 9671PJAGDOCNOXBIQAKVFORBKA5328-6 7-31T08:44:101.2.840.123427.1.72 .3.15|1.2.840.385412.1.13.104.2. 7.2.727879_[id number] [facility] 2022-10-18 07:54:08 /zebYzRDXZ49ZWUnd7JYvGYZDnKtZxV5 tYFvoOfn0o9/OEr0nUJ2XMMTVteUVubv 5480-31-46Z11:54:08 35 WEEKS . OVER WEEKEND PATIENT WAS SPOTTING AND IT STOPPED TODAY. SHE STARTING CRAMPING YESTERDAY AND STILL CRAMPING TODAY. TRANSFER CALL TO TRIAGE NURSE. 04639-0Gdzjwturt encounter XvrkQI6274-16-59R06:56:49Telepho ne encounter NoteTXT1.2.840.574056.1.13.104.2 .7.2.036520|7480217235IIBfgiwamp e for patient hibj56135-7LvyaTF142484011Baepnf a N [address] YhqgGguwlioztFtvkfuxvmICSX522613 4408XOIYUXWOTPOUIBPLFBFLRX0876-3 7-31T07:56:491.2.840.994154.1.72 .3.15|1.2.840.656012.1.13.104.2. 7.2.727879_[id number] Meri Willams [facility] 2022-10-04 12:19:11 kDFxM0wJYOPo1IEB1gJ/B4aeU6NC2WIN NXKrDikgQspfPVp4L+SRzjhQo5OWZiid 8989-12-79G92:19:11 Patient rescheduled 1hr GTT test for tomorrow at earlier appt time. Patient also wanted to note to provider that she had a fall while trying to step out of the shower yesterday, hitting in between her legs, falling forward catching herself with her hands. Denies pain, just soreness. No vaginal bleeding, LOF, good movement. Spoke with nurse in L&D, was told to monitor for symptoms and call with any concerns. Shandra Rodriguez RN 10/04/2022 12:22 PM 91343-8Iqooscodb encounter QejbIR3649-71-09J75:22:55Telepho ne encounter NoteTXT1.2.840.037322.1.13.104.2 .7.2.154803|[id number] e for patient [address] 2632NAMKUOEFZAUYMOLZZHTNYQ4794-3 10-04T12:22:551.2.840.812939.1.72 .3.15|1.2.840.377845.1.13.104.2. 7.2.727879_[id number] [facility] 2022-10-04 11:12:15 ficCqnKZ+/kOj7gsLBmjoTCq+J2dUFye +gBvjmkWZq72sSyByyv5anDLaWaxc1sU 8372-66-03X55:12:15 Pt would like to talk to nurse in regards to her glucose appointment today. Pt states yesterday also she called labor an delivery at the [facility] stating she fell out of the shower but just wanted to inform DR THOMPSON. Pt states she is okay. 03228-0Fqxpjjnmd encounter DqiwGA5748-74-44V90:15:57Telepho ne encounter NoteTXT1.2.840.342536.1.13.104.2 .7.2.294132|[id number] e for patient xxbz62685180Opxjn J Barnshaw[address] 7233MXJYGMQHDFYVCAXNPNFLHQ3882-4 7-17T11:15:571.2.840.877014.1.72 .3.15|1.2.840.044431.1.13.104.2. 7.2.727879_[id number] Mairssa Belcher [facility]
[2023-04-21 16:33] LABS: Hematocrit 35.1 % (36.0-45.0); Lymphocytes % 30.4 % (15.3-44.8); MCV 74.8 fL (80-100); Platelets 340 thou/uL (152-406); RBC Red Blood Cell Count 4.69 M/uL (3.86-4.86)
[2023-04-21 16:39] LABS: Specific Gravity 1.029 (1.005-1.030); Urine Bacteria None Seen /HPF (<20); Urine Bilirubin NEGATIVE (Negative); Urine Blood 1+ (Negative); Urine Clarity Extremely Turbid (Clear); Urine Color Yellow (Yellow); Urine Glucose NEGATIVE (Negative); Urine Mucus 4+ /HPF (None Seen); Urine Protein 1+ (Negative); Urine Urobilinogen 1+ (Normal); Urine pH 5.5 (5.0-7.0)
[2023-04-21 16:51] LABS: Bilirubin Total 0.5 mg/dL (0.2-1.0); Potassium 3.5 mEq/L (3.5-5.1); Protein, Total 8.9 g/dL (6.4-8.2)
--- NOTE | 2023-04-21 17:53 | RAD REPORT ---
EXAM DESCRIPTION: CT - Abdomen Pelvis W Contrast - 04/21/2023 5:11 pm CLINICAL HISTORY: ABD PAIN COMPARISON: 08/27/2013 TECHNIQUE: Thin cut axial CT imaging of the abdomen and pelvis was performed following intravenous a dministration of 100 mL Isovue 300. Multiplanar reformats were generated and reviewed. All CT scans are performed using dose optimization technique as appropriate and may include automated exposure control or mA/KV adjustment according to patient size. FINDINGS: No suspicious findings in the lung bases. The liver shows diffuse hepatic parenchymal hypoattenuation suggesting steatosis. Adrenal glands, spl een, and pancreas show no suspicious findings. Gallbladder and biliary tree are also without suspicio us finding. Symmetric renal function is seen with no hydronephrosis or suspicious renal mass. No dilated bowel loops or bowel wall thickening. No free air, free fluid or inflammatory stranding. N o hernia, mass or bulky lymphadenopathy. The urinary bladder is decompressed limiting evaluation. Kelly hilton is retroflexed. Right ovarian decompressed 2.7 cm cyst with partial marginal hyperenhancement sug gestive of a ruptured cyst. No suspicious bony findings. IMPRESSION: No acute intra-abdominal process. Incidental findings as above.
[2023-04-21 19:33] LABS: Hepatitis B Core IgM Nonreactive (Nonreactive); Hepatitis B surface AG Interp. Nonreactive (Nonreactive); Hepatitis C Virus Ab Nonreactive (Nonreactive)
--- NOTE | 2023-04-21 19:46 | ER ---
Nurse's Notes [facility] Name: Roselyn Mason Age: 27 yrs Sex: Female : 1995 Arrival Date: 04/21/2023 Time: 15:49 Bed 16 Private MD: Diagnosis: Transaminitis;Noninfective gastroenteritis and colitis, unspecified;Fatty (change of) liver, not elsewhere classified Presentation: 04/21 16:03 Chief complaint: Patient states: "For the past 5 days, I've been weak, N/V, and been mb9 taking tests but it's negative. I always feel like this when I get and just wanted to get checked out because I don't feel right". Coronavirus screen: Vaccine status: Patient reports receiving the 2nd dose of the covid vaccine. Ebola Screen: No symptoms or risks identified at this time. Initial Sepsis Screen: Does the patient meet any 2 criteria? HR > 90 bpm. Does the patient have a suspected source of infection? No. Patient's initial sepsis screen is negative. Risk Assessment: Do you want to hurt yourself or someone else? Patient reports no desire to harm self or others. Onset of symptoms was 2023. 16:03 Method Of Arrival: Ambulatory 9 16:03 Acuity: TABITHA 3 mb9 Triage Assessment: 16:06 General: Appears uncomfortable, Behavior is calm, cooperative. Pain: Complains of pain mb9 in abdomen. EENT: No signs and/or symptoms were reported regarding the EENT system. Neuro: Level of Consciousness is awake, alert, obeys commands, Oriented to person, place, time, situation, Appropriate for age. Cardiovascular: Patient's skin is warm and dry. Respiratory: Airway is patent Respiratory effort is even, unlabored, Respiratory pattern is regular, symmetrical, Breath sounds are clear bilaterally. GI: Abdomen is round non-distended, Bowel sounds present X 4 quads. Reports diarrhea, nausea, vomiting. : No signs and/or symptoms were reported regarding the genitourinary system. Derm: Skin is pink, warm \\T\\ dry. Musculoskeletal: Range of motion: intact in all extremities. 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 - Social history:: Smoking status: Patient denies any tobacco usage or history of. Screenin:07 [facility] ED Fall Risk Assessment (Adult) History of falling in the last 3 months, mb9 including since admission No falls in past 3 months (0 pts) Confusion or Disorientation No (0 pts) Intoxicated or Sedated No (0 pts) Impaired Gait No (0 pts) Mobility Assist Device Used No (0 pt) Altered Elimination No (0 pt) Score/Fall Risk Level 0 - 2 = Low Risk Oriented to surroundings, Maintained a safe environment, Educated pt \\T\\ family on fall prevention, incl call for assistance when getting out of bed. Abuse screen: Denies threats or abuse. Nutritional screening: No deficits noted. Tuberculosis screening: No symptoms or risk factors identified. Assessment: 16:07 Reassessment: see triage assessment. mb9 17:46 Reassessment: No changes from previously documented assessment. Patient and/or family mb9 updated on plan of care and expected duration. Pain level reassessed. Patient is alert, oriented x 3, equal unlabored respirations, skin warm/dry/pink. 18:52 Reassessment: No changes from previously documented assessment. Patient and/or family mb9 updated on plan of care and expected duration. Pain level reassessed. Patient is alert, oriented x 3, equal unlabored respirations, skin warm/dry/pink. 19:12 Reassessment: ASSUMED CARE OF PT. PT SITTING IN BED. NO N/V NOTED. PT STATES SHE FEELS jj7 BETTER. VS STABLE. FAMILY AT BEDSIDE. CALL [place] IN REACH NO NEEDS AT THIS TIME. GI: Abdomen is flat, non-distended, Abd is soft and non tender X 4 quads. Vital Signs: 16:03 BP 155 / 95; Pulse 104; Resp 18; Temp 98; Pulse Ox 100% ; Weight 85.28 kg; Height 5 ft. mb9 1 in. ; 16:52 BP 127 / 89; Pulse 86; Resp 16; Pulse Ox 99% on R/A; mb9 17:57 BP 130 / 94; Pulse 89; Resp 18; Pulse Ox 100% on R/A; mb9 19:12 BP 124 / 85; Pulse 92; Resp 17; Pulse Ox 100% ; jj7 20:00 BP 120 / 72; Pulse 91; Resp 16; Pulse Ox 100% ; Pain 0/10; jj7 16:03 Body Mass Index 35.52 (85.28 kg, 154.94 cm) mb9 20:00 Pain Scale: Adult [facility] ED Course: 15:54 Patient arrived in ED. kj1 15:55 Fidelina Dobson PA-C [facility]. sb4 15:55 Ata Fowler MD is Attending Physician. sb4 15:58 Brenda Carmichael RN is Primary Nurse. mb9 16:03 Arm band placed on. mb9 16:05 Triage completed. mb9 16:07 Placed in gown. Bed in low position. Call light in reach. Side rails up X 1. Client mb9 placed on continuous cardiac and pulse oximetry monitoring. NIBP monitoring applied. 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 16:10 Inserted saline lock: 20 gauge in left antecubital area, using aseptic technique. mb9 16:21 CBC with Diff Sent. mb9 16:21 CMP Sent. mb9 16:21 Lipase Sent. mb9 16:21 Test, Urine Sent. mb9 16:21 Urinalysis w/ reflexes Sent. mb9 16:41 No provider procedures requiring assistance completed. mb9 17:13 CT Abd/Pelvis - IV Contrast Only In Process Unspecified. EDMS 17:55 Hep Panel Sent. mb9 19:46 Tej Muñoz MD is Referral Physician. sb4 19:59 IV discontinued, intact, bleeding controlled, No redness/swelling at site. Pressure jj7 dressing applied. Administered Medications: 16:18 Drug: metoCLOPramide IVP 10 mg IVP once; over 1 to 2 minutes Route: IVP; Site: left mb9 antecubital; 17:14 Follow up: Response: No adverse reaction mb9 16:21 Drug: NS 0.9% IV 1000 ml IV at 1 bolus Per protocol; 1000 mL bolus Route: IV; Rate: 1 mb9 bolus; Site: left antecubital; 18:53 Follow up: Response: No adverse reaction; IV Status: Completed infusion mb9 16:21 Drug: Famotidine IVP 20 mg IVP once; dilute with 10 mL 0.9% NaCl; give over 2 minutes mb9 Route: IVP; Site: left antecubital; 17:14 Follow up: Response: No adverse reaction mb9 17:46 Drug: NS 0.9% IV 1000 ml IV at 1 bolus Per protocol; 1000 mL bolus Route: IV; Rate: 1 mb9 bolus; Site: left antecubital; 20:05 Follow up: IV Status: Completed infusion jj7 19:00 Drug: Ondansetron IVP 4 mg IVP once; over 2 minutes Route: IVP; Site: left antecubital; mb9 20:00 Follow up: Response: Nausea is decreased j7 Medication: 16:07 VIS not applicable for this client. 9 Outcome: 19:46 Discharge ordered by . [email or web address] 19:59 Discharged to home ambulatory, with family, j 19:59 Condition: improved 19:59 Discharge instructions given to patient, Instructed on discharge instructions, medication usage, Demonstrated understanding of instructions, medications, Prescriptions given X 1, 20:22 Patient left the ED. j7 Signatures: Dispatcher [employer] EDMS Bonnie Dailey kj1 Denise Gonzalez, RN RN jjFidelina Mejia, PA-C PA-C sb4 Brenda Carmichael RN RN mb9 Corrections: (The following items were deleted from the chart) 16:52 16:08 BP 127 / 89; mb9 mb9 16:53 16:21 TEST, SERUM+SC.LAB.BRZ drawn and sent. mb9 EDKY
--- NOTE | 2023-04-21 19:46 | EDPHYS ---
Physician Documentation [facility] Name: Roselyn Mason Age: 27 yrs Sex: Female : 1995 Arrival Date: 04/21/2023 Time: 15:49 Bed 16 Private MD: ED Physician Ata Fowler HPI: 04/21 16:06 This 27 yrs old Female presents to ER via Ambulatory with complaints of sb4 Nausea/Vomiting. 16:06 The patient presents to the emergency department with nausea, vomiting. Onset: The sb4 symptoms/episode began/occurred 5 day(s) ago. Possible causes: . The symptoms are aggravated by food , The symptoms are alleviated by nothing. Associated signs and symptoms: Pertinent negatives: abdominal pain, dysuria, fever, GI bleeding, vaginal discharge. The patient has not recently seen a physician. n/v x 5 days. has taken several at home tests that are negative. cannot hold anything down. 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 - Social history:: Smoking status: Patient denies any tobacco usage or history of. ROS: 16:06 Constitutional: Negative for fever, chills, and weight loss, sb4 16:06 Abdomen/GI: Positive for nausea and vomiting, 16:06 All other systems are negative, Exam: 16:06 Constitutional: This is a well developed, well nourished patient who is awake, alert, sb4 and in no acute distress. Head/Face: Normocephalic, atraumatic. Eyes: Extra-ocular motions intact. Periorbital areas with no swelling, redness, or edema. ENT: Mucous membranes moist. Cardiovascular: Regular rate and rhythm with a normal S1 and S2. Respiratory: Lungs have equal breath sounds bilaterally, clear to auscultation and percussion. No rales, rhonchi or wheezes noted. No increased work of breathing, no retractions or nasal flaring. Abdomen/GI: Soft, non-tender, no distension. Skin: Warm, dry with normal turgor. Normal color with no rashes, no lesions, and no evidence of cellulitis. MS/ Extremity: Pulses equal, no cyanosis. Neurovascular intact. Full, normal range of motion. Neuro: Awake and alert, GCS 15, oriented to person, place, time, and situation. Motor strength 5/5 in all extremities. Sensory grossly intact. Vital Signs: 16:03 BP 155 / 95; Pulse 104; Resp 18; Temp 98; Pulse Ox 100% ; Weight 85.28 kg; Height 5 ft. mb9 1 in. ; 16:52 BP 127 / 89; Pulse 86; Resp 16; Pulse Ox 99% on R/A; mb9 17:57 BP 130 / 94; Pulse 89; Resp 18; Pulse Ox 100% on R/A; mb9 19:12 BP 124 / 85; Pulse 92; Resp 17; Pulse Ox 100% ; jj7 20:00 BP 120 / 72; Pulse 91; Resp 16; Pulse Ox 100% ; Pain 0/10; jj7 16:03 Body Mass Index 35.52 (85.28 kg, 154.94 cm) mb9 20:00 Pain Scale: Adult jj7 MDM: 15:59 Patient medically screened. sb4 16:06 Differential diagnosis: gastritis, cholecystitis, pancreatitis, gastroenteritis, sb4 . 19:45 Data reviewed: vital signs, nurses notes, lab test result(s), radiologic studies, I sb4 have discussed the patient's presentation/case with the attending Emergency Department Physician; and as a result, I will discharge patient. Consideration of Admission/Observation Escalation of care including admission/observation considered. Test considered but Not performed: Ultrasound liver/GB ultrasound, patient refuses. Historians other than the Patient: Parent: mother. 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 ED course: discussed elevated liver enzymes with patient. offered liver US, she declines. prefers to go home, is feeling better. will return with any new or worsening symptoms. 04/21 16:05 Order name: CBC with Diff; Complete Time: 16:36 sb4 04/21 16:05 Order name: CMP; Complete Time: 16:53 sb4 04/21 16:05 Order name: Lipase; Complete Time: 16:53 sb4 04/21 16:05 Order name: Test, Urine; Complete Time: 16:40 sb4 04/21 16:05 Order name: Urinalysis w/ reflexes; Complete Time: 16:40 sb4 04/21 17:47 Order name: Hep Panel; Complete Time: 19:37 sb4 04/21 16:41 Order name: CT Abd/Pelvis - IV Contrast Only; Complete Time: 17:55 sb4 04/21 16:05 Order name: IV Saline Lock; Complete Time: 16:20 sb4 04/21 16:05 Order name: Labs collected and sent; Complete Time: 16:21 sb4 Administered Medications: 16:18 Drug: metoCLOPramide IVP 10 mg IVP once; over 1 to 2 minutes Route: IVP; Site: left [facility] antecubital; 17:14 Follow up: Response: No adverse reaction mb9 16:21 Drug: NS 0.9% IV 1000 ml IV at 1 bolus Per protocol; 1000 mL bolus Route: IV; Rate: 1 mb9 bolus; Site: left antecubital; 18:53 Follow up: Response: No adverse reaction; IV Status: Completed infusion mb9 16:21 Drug: Famotidine IVP 20 mg IVP once; dilute with 10 mL 0.9% NaCl; give over 2 minutes mb9 Route: IVP; Site: left antecubital; 17:14 Follow up: Response: No adverse reaction mb9 17:46 Drug: NS 0.9% IV 1000 ml IV at 1 bolus Per protocol; 1000 mL bolus Route: IV; Rate: 1 mb9 bolus; Site: left antecubital; 20:05 Follow up: IV Status: Completed infusion jj7 19:00 Drug: Ondansetron IVP 4 mg IVP once; over 2 minutes Route: IVP; Site: left antecubital; mb9 20:00 Follow up: Response: Nausea is decreased jj7 Disposition Summary: 04/21/23 19:46 Discharge Ordered Notes: Location: Home sb4 Problem: an ongoing problem sb4 Symptoms: have improved sb4 Condition: Stable sb4 Diagnosis - Transaminitis sb4 - Noninfective gastroenteritis and colitis, unspecified sb4 - Fatty (change of) liver, not elsewhere classified sb4 Followup: sb4 - With: Tej Muñoz MD - When: 2 - 3 days - Reason: Further diagnostic work-up, Recheck today's complaints, Re-evaluation by your physician Discharge Instructions: - Discharge Summary Sheet sb4 - Viral Gastroenteritis, Adult sb4 - Fatty Liver Disease sb4 Forms: - Medication Reconciliation Form sb4 - Thank You Letter sb4 - Antibiotic Education sb4 - Prescription Opioid Use sb4 - Patient Portal Instructions sb4 - Leadership Thank You Letter sb4 Prescriptions: - Reglan 10 mg Oral tablet - take 1 tablet ORAL route every 6 hours As needed; 20 tablet; Refills: 0, sb4 Product Selection Permitted Signatures: Dispatcher [employer] EDMS Javad Renner DO DO ms3 Fidelina Dobson PA-C PA-C sb4 Brenda Carmichael RN RN mb9 Denise Gonzalez RN jj7 Corrections: (The following items were deleted from the chart) 16:53 16:05 TEST, SERUM+SC.LAB.BRZ ordered. EDMS EDMS
[2023-04-21 21:15] VITALS: BP 120/72; TEMP 98; O2SAT 100
== END ==
LOC: ER 15:49
DX: K52.9 Noninfective gastroenteritis and colitis, unspecified (principal); R74.01 Elevation of levels of liver transaminase levels; K76.0 Fatty (change of) liver, not elsewhere classified
CPT/HCPCS: 85025; 81001; 36415; 81025; 83690; 80053; 80074; 74177; Q9967; J2765; J2405; J7030 ×2

== ENCOUNTER 2023-09-14 19:49 | Emergency (ER) | payer OTHER, SELFPAY ==
--- OUTSIDE RECORDS SUMMARY | 2023-09-14 19:56 | XMS REPORT | Continuity of Care Document ---
Author Name Unknown Address [address] [place] [address] [facility] thconnect Address [address] [place] [address] Care Team Providers Care Information Writer Name Role Phone Pcp, Patient Does Not Have A Primary Care Physic rylan [email or web address] Attending Clinician RAYRAY Odell Attending Clinician RAYRAY Odell Attending Clinician RAMONA Chau Attending Clinician Ramona Varela MD Attending Clinician [phone] Ruby Cleveland DO Attending Clinician [phone] Ever Hines MD Attending Clinician [phone] Doctor Unassigned, [place] Attending Clinician U ARLEEN Michelle Attending Clinician ARLEEN Lemon Attending Clinician ELENI Bassett Attending Clinician Merlyn aileli Ultrasound, [facility] Attending Clinician Eleni Merrill MD Attending Clinician + Lab, Ang - Db Attending Clinician Unavailable Giovana RN, Jayson Attending Clinician Unavailab le Ultrasound, Adc Mfm Attending Clinician Unavailgrayson Hyde MD, Veliz Attending Clinician + IBIS ÁLVAREZ Attending Clinician NORMAN Alves Attending Clinician Unavail ANOOP Handley Attending Clinician Unavailable ANOOP PEARSON Attending Clinician Unavailable Prieto COMMERCIAL RETOUCHER, Tiffanie Parker Attending Clinician [phone] JAY, RAMONA CAM Admitting Clinician Unavailable [email or web address] Admitting Clinician Unavailgrayson Thompson MD, Ramona Cam Admitting Clinician [phone] ARLEEN ABBOTT Admitting Clinician NORMAN Kwong Admitting Clinician Unavail ANOOP Handley Admitting Clinician Unavailable Payers Payer Name Policy Type Policy Number Effective Date Expirati on Date Source [facility] [id number] 2022 00:00:00 Problems Condition Name Condition Details Condition Category Status Onset Date Resolution Date Last Treatment Date Treating Clinician Comments Source Encounter for routine follow-up Encounter for routine follow-up Disease Active 11-11 00:00: 00 [facility] Visit for wound check Visit for wound check Disease Active 11-11 00:00: 00 [facility] Gestationa l hypertensi on, third trimester Gestationa l hypertensi on, third trimester Disease Active 11-02 00:00: 00 [facility] Liveborn , of lion , born in hospital by delivery Liveborn infant, of lion , born in hospital by delivery Disease Active 11-02 00:00: 00 [facility] Decreased movements in third trimester Decreased movements in third trimester Disease Active 11-01 00:00: 00 [facility] Non-reassu ring heart rate or rhythm affecting management of mother Non-reassu ring heart rate or rhythm affecting management of mother Disease Active 11-01 00:00: 00 [facility] Threatened labor, third trimester Threatened labor, third trimester Disease Active 0 8-09 00:00: 00 [facility] Threatened labor, third trimester Threatened labor, third trimester Disease Active 0 8-09 00:00: 00 [facility] Irregular uterine contractio ns Irregular uterine contractio ns Disease Active 8-04 00:00: 00 [facility] Non-reassu ring heart tones complicati ng , antepartum Non-reassu ring heart tones complicati ng , antepartum Disease Active 0 7-18 00:00: 00 [facility] Anemia, antepartum , third trimester Anemia, antepartum , third trimester Disease Active 0 718 00:00: 00 [facility] Non-stress test reactive on surveillan ce Non-stress test reactive on surveillan ce Disease Active 0 718 00:00: 00 [facility] Traumatic injury during , third trimester Traumatic injury during , third trimester Disease Active 0 7-18 00:00: 00 [facility] Fall Fall Disease Active 0 718 00:00: 00 [facility] Maternal care for decelerati ons during Maternal care for decelerati ons during Disease Active 0 718 00:00: 00 [facility] Anemia, antepartum , third trimester Anemia, antepartum , third trimester Disease Active 0 718 00:00: 00 [facility] Generalize d anxiety disorder Generalize d anxiety disorder Disease Active 3-31 00:00: 00 [facility] Constipati on during , antepartum Constipati on during , antepartum Disease Active 0 2- 00:00: 00 [facility] Elevated blood pressure reading without diagnosis of hypertensi on Elevated blood pressure reading without diagnosis of hypertensi on Disease Active 0 2-26 00:00: 00 [facility] Constipati on during , antepartum Constipati on during , antepartum Disease Active 0 2- 00:00: 00 [facility] Obesity in Obesity in Disease Active 2-03 00:00: 00 [facility] Obesity (BMI 30-39.9) Obesity (BMI 30-39.9) Disease Active 2-03 00:00: 00 [facility] Pelvic cramping in antepartum period Pelvic cramping in antepartum period Disease Active 2-03 00:00: 00 [facility] Constipati on, unspecifie d constipati on type Constipati on, unspecifie d constipati on type Disease Active 2-03 00:00: 00 [facility] 7 weeks gestation of 7 weeks gestation of Disease Active 1-19 00:00: 00 [facility] 33 weeks gestation of 33 weeks gestation of Disease Active 4-11 00:00: 00 [facility] 36 weeks gestation of 36 weeks gestation of Disease Active 411 00:00: 00 [facility] Nausea and vomiting in Nausea and vomiting in Disease Active 2016-03 00:00: 00 [facility] Nausea and vomiting during prior to 22 weeks gestation Nausea and vomiting during prior to 22 weeks gestation Disease Active 2016-03 00:00: 00 [facility] 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 Will need cytology in 12 months [facility] Former tobacco use Former tobacco use Disease Active 12-02 00:00: 00 [facility] Overweight (BMI 25.0-29.9) Overweight (BMI 25.0-29.9) Disease Active 12-02 00:00: 00 [facility] with history of miscarriag e, first trimester with history of miscarriag e, first trimester Disease Active 12-02 00:00: 00 [facility] High-risk in third trimester High-risk in third trimester Disease Active 12-02 00:00: 00 [facility] Allergies, Adverse Reactions, Alerts Allergy Name Allergy Type Status Severity Reaction(s) Onset Date Inactive Date Treating Clinician Comments Source NO KNOWN ALLERGIE S Drug Class Active [facility] Social History Social Habit Start Date Stop Date Quantity Comments Source ASSERTION 2022-03-02 00:00:00 [facility] Gender identity [facility] Sexual orientation [facility] History of Social function 2022-11-11 00:00:00 2022-11-11 00:00:00 [facility] Exposure to SARS-CoV-2 (event) 2022-07-17 00:00:00 2022-07-27 10:36:00 Not sure [facility] Alcohol intake 2022-07-23 00:00:00 2022-07-23 00:00:00 Lifetime non-drinker (finding) [facility] Tobacco use and exposure 2022-04-23 00:00:00 2022-04-23 00:00:00 Smokeless tobacco non-user [facility] History of tobacco use 2014-12-02 00:00:00 2016-11-25 00:00:00 Cigarette Smoker [facility] Sex Assigned At 1995 00:00:00 1995 00:00:00 [facility] Smoking Status Start Date Stop Date Source Ex-smoker 2022-04-23 00:00:00 2022-04-23 00:00:00 [facility] Medications Ordered Medication Name Filled Medication Name Start Date Stop Date Current Medication? Ordering Clinician Indication Dosage Frequency Signature (SIG) Comments Components Source ibuprofen 800 mg tablet 11-11 00:00: 00 Yes [id number] 800mg Take 1 tablet by mouth every 6 (six) hours as needed for Pain (scale 4-6). [facility] ibuprofen (IBU) tablet 600 mg 11-04 17:00: 00 Yes 600mg 600 mg, Oral, Q6H ABX, First dose on Jenn 11/04/22 at 1200, Until Discontinu ed, Routine [facility] hydrocortis one 1 % cream 11-04 13:00: 00 Yes Topical, BID, First dose on Tue11/04/22 at 0800, Until Discontinu ed, Routine [facility] HYDROcodone -acetaminop hen (NORCO) 10-325 mg tablet 1 tablet 11-04 07:40: 08 Yes 1{tbl} 1 tablet, Oral, Q6HPRN, Starting on Tue11/04/22 at 0240, Until Discontinu ed, Routine, Pain (scale 7-10) [facility] HYDROcodone -acetaminop hen (NORCO 5) 5-325 mg tablet 1 tablet 11-04 07:39: 57 Yes 1{tbl} 1 tablet, Oral, Q6HPRN, Starting on Tue11/04/22 at 0239, Until Discontinu ed, Routine, Pain (scale 4-6), Alternate with Ibuprofen [facility] ferrous sulfate tablet 325 mg 11-04 01:00: 00 Yes 325mg 325 mg, Oral, BID, First dose on Tue11/03/22 at 2000, Until Discontinu ed, Routine [facility] hydrocortis one 1 % cream 11-04 00:00: 00 Yes [id number] Apply to area(s) 2 (two) times daily. [facility] ketorolac (TORADOL) injection 30 mg 11-03 17:00: 00 11-04 16:59 :00 No 30mg 30 mg, Slow IV Push, Q6H ABX, 4 doses, First dose on Tue11/03/22 at 1200, Last dose on Tue11/04/22 at 0600, Routine [facility] sennosides (SENOKOT) tablet 8.6 mg 11-03 14:00: 00 Yes 8.6mg 8.6 mg, Oral, DAILY, First dose on Tue11/03/22 at 0900, Until Discontinu ed, Routine [facility] gabapentin (NEURONTIN) capsule 300 mg 11-03 13:00: 00 Yes 300mg 300 mg, Oral, TID, First dose on Tue11/03/22 at 0800, Until Discontinu ed, [facility] acetaminoph en (TYLENOL) tablet 650 mg 11-03 11:00: 00 Yes 650mg 650 mg, Oral, Q6H ABX, First dose on Tue11/03/22 at 0600, Until Discontinu ed, Routine [facility] ceFAZolin (ANCEF) 2,000 mg in NaCl 0.9% (NS) 100 mL MINI-BAG 11-03 07:00: 00 11-03 08:16 :00 No 2000mg 2,000 mg, IV Piggyback, ONCE, 1 dose, On Tue11/03/22 at 0200, Administer over 30 Minutes, 100 mL
Reas on for Anti-Infec tive: Surgical Prophylaxi s
Surgi carlitos Prophylaxi s: FURNACE WORKER
Duration of therapy: within 24 hours of surgery [facility] acetaminoph en ADULT (OFIRMEV) injection 1,000 mg 11-03 06:00: 00 11-03 07:21 :00 No 1000mg 1,000 mg, IV Infusion, at 400 mL/hr Administer over 15 Minutes, Q6H, 1 dose, First dose on Tue11/03/22 at 0100, Routine
Indicatio n: Perioperat lalo Patient [facility] HYDROcodone -acetaminop hen (NORCO 5) 5-325 mg tablet 1 tablet 11-03 05:00: 00 Yes 1{tbl} 1 tablet, Oral, Q6HPRN, Starting on Tue11/03/22 at 0000, Until Discontinu ed, Routine, Pain (scale 7-10), Alternate with Ibuprofen [facility] rho(D) immune globulin (RHOGAM) syringe 300 mcg 11-03 03:10: 11 Yes 300ug 300 mcg, Intramuscu lar, ONCE, For 1 dose, Conditiona l, Routine [facility] diphenhydrA MINE (BENADRYL) injection 25 mg 11-03 03:09: 36 Yes 25mg 25 mg, Slow IV Push, Q6HPRN, Starting on Tue11/02/22 at 2209, Until Discontinu ed, Routine, Itching [facility] diphenhydrA MINE (BENADRYL) tablet 25 mg 11-03 03:09: 36 Yes 25mg 25 mg, Oral, Q6HPRN, Starting on Tue11/02/22 at 2208, Until Discontinu ed, Routine, Sleep, Itching [facility] ondansetron (ZOFRAN (PF)) injection 4 mg 11-03 03:09: 36 Yes 4mg 4 mg, Slow IV Push, Q8HPRN, Starting on Tue11/02/22 at 2208, Until Discontinu ed, Routine, Nausea and Vomiting (N/V) [facility] bisacodyL (DULCOLAX) suppository 10 mg 11-03 03:09: 36 Yes 10mg 10 mg, Rectal, QDAILYPRN, Starting on Tue11/02/22 at 2208, Until Discontinu ed, Routine, Constipati on [facility] simethicone (GAS RELIEF (SIMETHICON E)) chewable tablet 160 mg 11-03 03:09: 36 Yes 160mg 160 mg, Oral, PC+HSPRN, Starting on Tue11/02/22 at 2208, Until Discontinu ed, Routine, Gas [facility] docusate (COLACE) capsule 200 mg 11-03 03:09: 36 Yes 200mg 200 mg, Oral, QDAILYPRN, Starting on Tue11/02/22 at 2208, Until Discontinu ed, Routine, Constipati on [facility] magnesium hydroxide (MILK OF MAGNESIA) 400 mg/5 mL suspension 30 mL 11-03 03:09: 36 Yes 30mL 30 mL, Oral, QDAILYPRN, Starting on Tue11/02/22 at 2208, Until Discontinu ed, Routine, Constipati on [facility] lactated ringers IV infusion 1,000 mL 11-03 03:09: 36 Yes 1000mL at 125 mL/hr, 1,000 mL, IV Infusion, PRN, 1 dose, Starting on Tue11/02/22 at 2209, Until Discontinu ed, Routine [facility] morpHINE 30 mg/30 mL (fixed dose) SLATE TRIMMER injection 11-03 01:15: 00 11-04 01:14 :00 No Patient Bolus Dose: 1 mg
Lock out Interval: 6 Minutes
Basal Rate: 1 mg/hr
F our Hour Dose Limit: 32 mg
Intr avenous, 30 mL, CONTINUOUS , Starting on Tue11/02/22 at 2014, Until Tue11/03/22 at 2013 [facility] docusate (COLACE) capsule 100 mg 11-03 00:30: 00 Yes 100mg 100 mg, Oral, DAILY, First dose on Tue11/02/22 at 1930, Until Discontinu ed, Routine [facility] ondansetron (ZOFRAN (PF)) injection 4 mg 11-03 00:14: 24 Yes 4mg 4 mg, Slow IV Push, Q6HPRN, Starting on Tue11/02/22 at 1914, Until Discontinu ed, KATE, Nausea and Vomiting (N/V) [facility] naloxone (NARCAN) injection 0.1 mg 11-03 00:13: 58 Yes .1mg 0.1 mg, Slow IV Push, SEE-INSTRU CTIONS, Starting on Tue11/02/22 at 1913, Until Discontinu ed, Routine [facility] mor[facility]INE 2 mg/mL LOAD & RESCUE INJECTION SYRG 11-03 00:13: 58 Yes Slow IV Push, Routine [facility] mupirocin (BACTROBAN OINT) 2 % skin ointment 11-03 00:09: 00 Yes Intra-op [facility] naloxone (NARCAN) injection 0.2 mg 11-03 00:07: 44 Yes .2mg 0.2 mg, Intramuscu lar, Q3HPRN, Starting on Tue11/02/22 at 1907, Until Discontinu ed, Routine, Itching [facility] naloxone (NARCAN) injection 0.4 mg 11-03 00:07: 44 2023- 08-17 15:02 :22 No .4mg 0.4 mg, Slow IV Push, PRN - SEE CARMELO RAMIREZ, Starting on Tue11/02/22 at 1907, Until Tue11/04/22 at 1002, Routine, Analgesia Recovery [facility] acetaminoph en 325 mg tablet 11-03 00:00: 00 Yes [id number] 650mg Take 2 tablets by mouth every 6 (six) hours as needed for Pain (scale 1-3) or Pain (scale 4-6). [facility] vitamin w/FA tablet 11-03 00:00: 00 Yes [id number] 1{tbl} Take 1 tablet by mouth in the morning. [facility] docusate 100 mg capsule 11-03 00:00: 00 Yes [id number] 200mg Take 2 capsules by mouth once daily as needed for Constipati on. [facility] ferrous sulfate 325 mg (65 mg iron) tablet 11-03 00:00: 00 Yes [id number] 325mg Take 1 tablet by mouth in the morning and 1 tablet in the evening. [facility] ibuprofen 600 mg tablet 11-03 00:00: 00 Yes [id number] 600mg Take 1 tablet by mouth every 6 (six) hours as needed (Pain). Take with food or milk. [facility] HYDROcodone -acetaminop hen 5-325 mg tablet 11-03 00:00: 00 11-11 04:59 :00 No [id number] 1{tbl} Take 1 tablet by mouth every 6 (six) hours as needed for Pain (scale 7-10) (Alternate with Ibuprofen) for up to 7 days. Indication s: acute pain [facility] gabapentin 300 mg capsule 11-03 00:00: 00 11-09 04:59 :00 No [id number] 300mg Take 1 capsule by mouth in the morning and 1 capsule at noon and 1 capsule in the evening. Do all this for 5 days. [facility] sodium chloride 0.9 % irrigation solution 11-02 23:58: 00 Yes PRN, Starting on Tue11/02/22 at 1858, Until Discontinu ed, Intra-op [facility] lactated ringers IV infusion 1,000 mL 11-02 23:15: 00 11-03 03:10 :36 No 1000mL at 125 mL/hr, 1,000 mL, IV Infusion, CONTINUOUS , Starting on Tue11/02/22 at 1815, Until Tue11/02/22 at 2210, KATE [facility] ceFAZolin (ANCEF) 2,000 mg in NaCl 0.9% (NS) 100 mL MINI-BAG 11-02 21:47: 58 11-03 00:33 :29 No 2000mg 2,000 mg, IV Piggyback, O.R. HOLDING ONCE, Starting on Tue11/02/22 at 1647, Until Tue11/02/22 at 1933, Administer over 30 Minutes, 100 mL
Reas on for Anti-Infec tive: Surgical Prophylaxi s
Surgi carlitos Prophylaxi s: FURNACE WORKER
Duration of therapy: within 24 hours of surgery [facility] acetaminoph en (TYLENOL) tablet 650 mg 11-02 16:43: 32 11-03 03:11 :56 No 650mg 650 mg, Oral, Q6HPRN, Starting on Tue11/02/22 at 1143, Until Tue11/02/22 at 2211, Routine, Pain (scale 1-3), Pain (scale 4-6) [facility] diphenhydrA MINE (BENADRYL) injection 25 mg 11-02 11:04: 00 11-02 11:11 :00 No 25mg 25 mg, Intravenou s, ONCE, 1 dose, On Tue11/02/22 at 0615, Routine [facility] fentaNYL-ro pivacaine 2 mcg/mL-0.1 % (PF) in NS 200 mL epidural infusion RTU 11-02 05:59: 00 11-03 02:15 :46 No Epidural, ONCE INTRA PROCEDURE, Starting on Tue11/02/22 at 0059, Until Discontinu ed, Routine, Intra-op [facility] oxytocin (PITOCIN) 30 units in NS 500 mL IV infusion 11-02 00:53: 14 11-03 03:11 :28 No 2mU/min at 2-40 mL/hr, IV Infusion, TITRATE, Starting on Tue11/01/22 at 1953, Until Tue11/02/22 at 2211, KATE [facility] ondansetron (ZOFRAN (PF)) injection 4 mg 11-01 23:54: 00 11-03 03:11 :56 No 4mg 4 mg, Slow IV Push, Q8HPRN, Nausea and Vomiting (N/V), Starting on Tue11/01/22 at 1854
Do ses of ondansetro n 16 mg and above need to be administer ed via IV piggyback. For Dose >=24mg ECG monitoring is advisable.
[facility] lactated ringers IV infusion 500 mL 11-01 23:51: 30 11-03 03:11 :28 No 500mL at 999 mL/hr, 500 mL, IV Infusion, PRN - SEE INSTRUCTIO NS, Starting on Tue11/01/22 at 1851, Until Tue11/02/22 at 2211, Routine [facility] D5W-LR IV infusion 1,000 mL 11-01 23:51: 30 11-03 03:11 :28 No 1000mL at 1-125 mL/hr, IV Infusion, TITRATE, Starting on Tue11/01/22 at 1851, Until Tue11/02/22 at 2211, Routine [facility] lactated ringers IV infusion 1,000 mL 10-30 05:00: 00 10-30 05:10 :00 No 1000mL at 999 mL/hr, 1,000 mL, IV Infusion, ONCE, 1 dose, On 10/30/22 at 0000, STAT [facility] betamethaso ne acet,sod phos (CELESTONE SOLUSPAN) 6 mg/mL injection 12 mg 10-28 20:31: 00 10-28 20:58 :00 No 12mg 12 mg, Intramuscu lar, Q24H, 1 dose, First dose on Tue10/28/22 at 1545, Routine [facility] betamethaso ne acet,sod phos (CELESTONE SOLUSPAN) 6 mg/mL injection 12 mg 10-27 20:30: 00 10-27 19:52 :00 No 12mg 12 mg, Intramuscu lar, ONCE, 1 dose, On Tue10/27/22 at 1530, Routine [facility] NaCl 0.9% (NS) IV infusion 1,000 mL 10-05 19:15: 00 10-05 20:00 :00 No 1000mL at 125 mL/hr, IV Infusion, ONCE, 1 dose, On Tue10/05/22 at 1415, Routine [facility] NaCl 0.9% (NS) IV infusion 1,000 mL 10-05 18:15: 00 10-05 18:46 :49 No 1000mL at 999 mL/hr, IV Infusion, ONCE, 1 dose, On Tue10/05/22 at 1315, Routine [facility] ferrous sulfate (IRON, FERROUS SULFATE,) 325 mg (65 mg iron) tablet 10-05 00:00: 00 11-03 00:00 :00 No [id number] 325mg Take 1 tablet by mouth in the morning and 1 tablet in the evening. [facility] ondansetron (ZOFRAN) 4 mg tablet 19 00:00: 00 Yes 4mg Take 1 tablet by mouth every 8 (eight) hours as needed for Nausea and Vomiting (N/V). [facility] fluconazole (DIFLUCAN) 200 mg tablet 4-04 00:00: 00 10-01 00:00 :00 No [id number] 200mg Take 1 tablet by mouth in the morning. [facility] ondansetron 4 mg tablet 06-18 14:40: 41 06-18 00:00 :00 No 4mg Take 1 tablet by mouth every 8 (eight) hours as needed for Nausea and Vomiting (N/V). [facility] busPIRone 7.5 mg tablet 06-18 00:00: 00 11-03 00:00 :00 No [id number] 7.5mg Take 1 tablet by mouth in the morning and 1 tablet in the evening. [facility] fluconazole 200 mg tablet 06-18 00:00: 00 10-01 00:00 :00 No [id number] 200mg Take 1 tablet by mouth in the morning. [facility] metoclopram delores HCl 10 mg tablet 05-05 00:00: 00 11-03 00:00 :00 No [id number] 10mg Take 1 tablet by mouth in the morning and 1 tablet at noon and 1 tablet in the evening. Take before meals. [facility] ondansetron 4 mg tablet 05-04 00:00: 00 11-03 00:00 :00 No [id number] 4mg Take 1 tablet by mouth every 8 (eight) hours as needed for Nausea and Vomiting (N/V). [facility] ondansetron (ZOFRAN) 4 mg tablet 05-03 14:01: 54 Yes 4mg Take 4 mg by mouth every 8 (eight) hours as needed for Nausea and Vomiting (N/V). [facility] NaCl 0.9% (NS) bolus infusion 1,000 mL 05-01 08:15: 00 05-01 08:54 :00 No 1000mL at 999 mL/hr, 1,000 mL, IV Infusion, ONCE, 1 dose, On 05/01/22 at 0215, KATE [facility] ondansetron (ZOFRAN) 4 mg tablet 04-23 10:19: 56 Yes 4mg Take 4 mg by mouth every 8 (eight) hours as needed for Nausea and Vomiting (N/V). [facility] docusate (COLACE) 100 mg capsule 04-23 00:00: 00 11-03 00:00 :00 No [id number] 100mg Take 1 capsule by mouth in the morning. [facility] metoclopram delores HCl 10 mg tablet 04-12 00:00: 00 07-23 00:00 :00 No 10mg Take 1 tablet by mouth 3 (three) times daily as needed for Nausea and Vomiting (N/V). [facility] ondansetron 4 mg disintegrat ing tablet 04-12 00:00: 00 06-18 00:00 :00 No DISSOLVE 1 TABLET UNDER TONGUE EVERY 4 TO 6 HOURS NEEDED FOR NAUSEA [facility] proMETHazin e (PHENERGAN) tablet 25 mg 04-09 13:53: 09 Yes 25mg 25 mg, Oral, Q4HPRN, Starting on Tue04/09/22 at 0753, Until Discontinu ed, Routine, Nausea and Vomiting (N/V) [facility] proMETHazin e (PHENERGAN) 25 mg in NaCl 0.9% (NS) 50 mL IV piggyback 04-09 03:42: 49 04-09 13:55 :16 No 25mg 25 mg, IV Piggyback, Q4HPRN, Starting on Tue04/08/22 at 2142, Until Tue04/09/22 at 0755, Routine, Nausea and Vomiting (N/V) [facility] D5W-LR IV infusion 1,000 mL 04-09 01:00: 00 Yes 1000mL at 200 mL/hr, IV Infusion, CONTINUOUS , Starting on Tue04/08/22 at 1900, Until Discontinu ed, Routine [facility] proMETHazin e 25 mg tablet 04-09 00:00: 00 05-04 00:00 :00 No [id number] 25mg Take 1 tablet by mouth every 4 (four) hours as needed for Nausea and Vomiting (N/V). [facility] proMETHazin e 25 mg suppository 04-09 00:00: 00 05-04 00:00 :00 No [id number] 25mg Insert 1 Suppositor y into rectum every 4 (four) hours as needed for N/V unresponsi ve to oral antiemetic s. [facility] pyridoxine, VITAMIN B-6, (VITAMIN B-6) 25 mg tablet 04-09 00:00: 00 05-04 00:00 :00 No [id number] 25mg Take 1 tablet by mouth every 6 (six) hours as needed for Nausea and Vomiting (N/V). [facility] NaCl 0.9% (NS) IV infusion 1,000 mL 04-08 22:45: 00 04-08 21:56 :00 No 1000mL at 999 mL/hr, Intravenou s, ONCE, 1 dose, On Tue04/08/22 at 1645, [facility] acetaminoph en (TYLENOL) tablet 650 mg 04-08 21:15: 00 04-08 21:04 :00 No 650mg 650 mg, Oral, ONCE, 1 dose, On Tue04/08/22 at 1515, [facility] proCHLORper azine (COMPAZINE) 10 mg in NaCl 0.9% (NS) piggyback 04-08 18:59: 00 04-09 14:01 :59 No 10mg 10 mg, IV Piggyback, at 100 mL/hr Administer over 30 Minutes, Q6HPRN, Starting on Tue04/08/22 at 1259, Until Tue04/09/22 at 0801, Routine, Nausea and Vomiting (N/V) [facility] NaCl 0.9% (NS) bolus infusion 1,000 mL 04-08 18:45: 00 04-08 19:11 :00 No 1000mL at 999 mL/hr, 1,000 mL, IV Infusion, ONCE, 1 dose, On Tue04/08/22 at 1245, [facility] proMETHazin e (PHENERGAN) 25 mg in NaCl 0.9% (NS) 50 mL IV piggyback 04-08 18:00: 00 04-08 18:05 :00 No 25mg 25 mg, IV Piggyback, ONCE, 1 dose, On Jenn 04/08/22 at 1200, KATE [facility] SELECT-OB + DHA 29 mg iron-1 mg -250 mg combo pack 17 00:00: 00 06-18 00:00 :00 No 1 PACKET BY MOUTH EVERY DAY [facility] proMETHazin e 25 mg tablet 2016-03 00:00: 00 04-13 00:00 :00 No [id number] 25mg Take 1 tablet by mouth every 6 (six) hours as needed for Nausea and Vomiting (N/V) (q4-6 hr prn N/V). [facility] [id number] 3-dha-epa-f jessica oil ( GUMMY) 400 mcg-35 mg -25 mg-5 mg Chew 12-02 00:00: 00 Yes [id number] 1{tbl} Take 1 tablet by mouth daily. She may have any brand covered by her insurance. [facility] [id number] 3-dha-epa-f jessica oil ( GUMMY) 400 mcg-35 mg -25 mg-5 mg Chew 12-02 00:00: 00 11-03 00:00 :00 No [id number] 1{tbl} Take 1 tablet by mouth daily. She may have any brand covered by her insurance. [facility] Vital Signs Vital Name Observation Time Observation Value Comments S ource Systolic blood pressure 2022-11-11 16:21:00 127 mm[Hg] [facility] Diastolic blood pressure 2022-11-11 16:21:00 90 mm[Hg] [facility] Heart rate 2022-11-11 16:21:00 92 /min [facility] Respiratory rate 2022-11-11 16:21:00 18 /min [facility] Body height 2022-11-11 16:21:00 162.6 cm [facility] Body weight 2022-11-11 16:21:00 80.74 kg [facility] BMI 2022-11-11 16:21:00 30.55 kg/m2 [facility] Systolic blood pressure 2022-11-04 12:15:00 131 mm[Hg] [facility] Diastolic blood pressure 2022-11-04 12:15:00 79 mm[Hg] [facility] Body temperature 2022-11-04 12:15:00 36.5 Marlin [facility] Respiratory rate 2022-11-04 12:15:00 16 /min [facility] Heart rate 2022-11-04 08:04:00 78 /min [facility] Oxygen saturation in Arterial blood by Pulse oximetry 2022-11-04 08:04:00 99 /min [facility] Systolic blood pressure 2022-11-03 00:30:00 130 mm[Hg] [facility] Diastolic blood pressure 2022-11-03 00:30:00 81 mm[Hg] [facility] Heart rate 2022-11-03 00:30:00 112 /min [facility] Body temperature 2022-11-03 00:30:00 36.78 Marlin [facility] Respiratory rate 2022-11-03 00:30:00 17 /min [facility] Oxygen saturation in Arterial blood by Pulse oximetry 2022-11-03 00:30:00 99 /min [facility] Heart rate 2022-10-30 13:45:00 72 /min [facility] Oxygen saturation in Arterial blood by Pulse oximetry 2022-10-30 13:45:00 99 /min [facility] Systolic blood pressure 2022-10-30 13:35:00 137 mm[Hg] [facility] Diastolic blood pressure 2022-10-30 13:35:00 90 mm[Hg] [facility] Body temperature 2022-10-30 12:45:00 36.5 Marlin [facility] Respiratory rate 2022-10-30 12:45:00 18 /min [facility] Body height 2022-10-30 04:00:00 154.9 cm [facility] Body weight 2022-10-30 04:00:00 87.544 kg [facility] BMI 2022-10-30 04:00:00 36.49 kg/m2 [facility] Systolic blood pressure 2022-10-29 18:18:00 122 mm[Hg] [facility] Diastolic blood pressure 2022-10-29 18:18:00 79 mm[Hg] [facility] Heart rate 2022-10-29 18:17:00 89 /min [facility] Body height 2022-10-29 18:17:00 154.9 cm [facility] Body weight 2022-10-29 18:17:00 87.998 kg [facility] BMI 2022-10-29 18:17:00 36.66 kg/m2 [facility] Systolic blood pressure 2022-10-28 21:09:00 109 mm[Hg] [facility] Diastolic blood pressure 2022-10-28 21:09:00 66 mm[Hg] [facility] Heart rate 2022-10-28 21:09:00 88 /min [facility] Body temperature 2022-10-28 21:09:00 36.67 Mar[place] [facility] Respiratory rate 2022-10-28 21:09:00 18 /min [facility] Body height 2022-10-28 21:09:00 154.9 cm [facility] Body weight 2022-10-28 21:09:00 85.73 kg [facility] BMI 2022-10-28 21:09:00 35.71 kg/m2 [facility] Oxygen saturation in Arterial blood by Pulse oximetry 2022-10-28 21:09:00 100 /min [facility] Systolic blood pressure 2022-10-27 22:30:00 139 mm[Hg] [facility] Diastolic blood pressure 2022-10-27 22:30:00 88 mm[Hg] [facility] Heart rate 2022-10-27 22:30:00 103 /min [facility] Body temperature 2022-10-27 22:30:00 36.67 Marlin [facility] Respiratory rate 2022-10-27 22:30:00 20 /min [facility] Oxygen saturation in Arterial blood by Pulse oximetry 2022-10-27 21:00:00 100 /min [facility] Body height 2022-10-27 17:30:00 154.9 cm [facility] Body weight 2022-10-27 17:30:00 86.637 kg [facility] BMI 2022-10-27 17:30:00 36.09 kg/m2 [facility] Systolic blood pressure 2022-10-25 18:39:00 100 mm[Hg] [facility] Diastolic blood pressure 2022-10-25 18:39:00 53 mm[Hg] [facility] Heart rate 2022-10-25 18:39:00 96 /min [facility] Body temperature 2022-10-25 18:39:00 36.72 Mar[place] [facility] Respiratory rate 2022-10-25 18:39:00 17 /min [facility] Oxygen saturation in Arterial blood by Pulse oximetry 2022-10-25 18:39:00 100 /min [facility] Systolic blood pressure 2022-10-22 15:42:00 116 mm[Hg] [facility] Diastolic blood pressure 2022-10-22 15:42:00 73 mm[Hg] [facility] Heart rate 2022-10-22 15:42:00 93 /min [facility] Body temperature 2022-10-22 15:42:00 36.56 [place] [facility] Body height 2022-10-22 15:42:00 154.9 cm [facility] Body weight 2022-10-22 15:42:00 87.454 kg [facility] BMI 2022-10-22 15:42:00 36.43 kg/m2 [facility] Heart rate 2022-10-18 22:00:00 84 /min [facility] Oxygen saturation in Arterial blood by Pulse oximetry 2022-10-18 22:00:00 100 /min [facility] Systolic blood pressure 2022-10-18 21:30:00 102 mm[Hg] [facility] Diastolic blood pressure 2022-10-18 21:30:00 62 mm[Hg] [facility] Respiratory rate 2022-10-18 21:30:00 18 /min [facility] Body temperature 2022-10-18 20:36:00 36.72 [place] [facility] Systolic blood pressure 2022-10-15 14:38:00 134 mm[Hg] [facility] Diastolic blood pressure 2022-10-15 14:38:00 88 mm[Hg] [facility] Heart rate 2022-10-15 14:38:00 90 /min [facility] 2022-10-15 14:38:00 36.78 Mar[place] [facility] Respiratory rate 2022-10-15 14:38:00 16 /min [facility] Body height 2022-10-15 14:38:00 154.9 cm [facility] Body weight 2022-10-15 14:38:00 85.957 kg [facility] BMI 2022-10-15 14:38:00 35.81 kg/m2 [facility] Oxygen saturation in Arterial blood by Pulse oximetry 2022-10-15 14:38:00 97 /min [facility] Systolic blood pressure 2022-10-06 00:00:00 118 mm[Hg] [facility] Diastolic blood pressure 2022-10-06 00:00:00 86 mm[Hg] [facility] Heart rate 2022-10-06 00:00:00 88 /min [facility] Oxygen saturation in Arterial blood by Pulse oximetry 2022-10-06 00:00:00 100 /min [facility] Body temperature 2022-10-05 21:48:00 37.39 Mar[place] [facility] Respiratory rate 2022-10-05 21:48:00 18 /min [facility] Body height 2022-10-05 16:00:00 154.9 cm [facility] Body weight 2022-10-05 16:00:00 187.6 kg [facility] BMI 2022-10-05 16:00:00 78.19 kg/m2 [facility] Systolic blood pressure 2022-10-05 14:13:00 111 mm[Hg] [facility] Diastolic blood pressure 2022-10-05 14:13:00 78 mm[Hg] [facility] Heart rate 2022-10-05 14:13:00 95 /min [facility] Body temperature 2022-10-05 14:13:00 36.67 Marlin [facility] Respiratory rate 2022-10-05 14:13:00 16 /min [facility] Body height 2022-10-05 14:13:00 154.9 cm [facility] Body weight 2022-10-05 14:13:00 85.548 kg [facility] BMI 2022-10-05 14:13:00 35.64 kg/m2 [facility] Oxygen saturation in Arterial blood by Pulse oximetry 2022-10-05 14:13:00 99 /min [facility] Systolic blood pressure 2022-10-01 14:59:00 112 mm[Hg] [facility] Diastolic blood pressure 2022-10-01 14:59:00 74 mm[Hg] [facility] Heart rate 2022-10-01 14:59:00 89 /min [facility] Body temperature 2022-10-01 14:59:00 36.56 [place] [facility] Respiratory rate 2022-10-01 14:59:00 16 /min [facility] Body height 2022-10-01 14:59:00 154.9 cm [facility] Body weight 2022-10-01 14:59:00 85.095 kg [facility] BMI 2022-10-01 14:59:00 35.45 kg/m2 [facility] Oxygen saturation in Arterial blood by Pulse oximetry 2022-10-01 14:59:00 99 /min [facility] Heart rate 2022-08-28 19:35:00 88 /min [facility] Oxygen saturation in Arterial blood by Pulse oximetry 2022-08-28 19:35:00 100 /min [facility] Systolic blood pressure 2022-08-28 17:05:00 114 mm[Hg] [facility] Diastolic blood pressure 2022-08-28 17:05:00 70 mm[Hg] [facility] Body temperature 2022-08-28 17:05:00 36.94 [place] [facility] Respiratory rate 2022-08-28 17:05:00 18 /min [facility] Body height 2022-08-28 17:05:00 154.9 cm [facility] Body weight 2022-08-28 17:05:00 82.555 kg [facility] BMI 2022-08-28 17:05:00 34.39 kg/m2 [facility] Systolic blood pressure 2022-07-23 19:21:00 107 mm[Hg] [facility] Diastolic blood pressure 2022-07-23 19:21:00 73 mm[Hg] [facility] Heart rate 2022-07-23 19:21:00 80 /min [facility] Body temperature 2022-07-23 19:21:00 36.72 Mar[place] [facility] Respiratory rate 2022-07-23 19:21:00 17 /min [facility] Body height 2022-07-23 19:21:00 154.9 cm [facility] Body weight 2022-07-23 19:21:00 80.287 kg [facility] BMI 2022-07-23 19:21:00 33.44 kg/m2 [facility] Systolic blood pressure 2022-06-18 19:37:00 125 mm[Hg] [facility] Diastolic blood pressure 2022-06-18 19:37:00 89 mm[Hg] [facility] Heart rate 2022-06-18 19:37:00 88 /min [facility] Respiratory rate 2022-06-18 19:37:00 16 /min [facility] Body height 2022-06-18 19:37:00 154.9 cm [facility] Body weight 2022-06-18 19:37:00 79.334 kg [facility] BMI 2022-06-18 19:37:00 33.05 kg/m2 [facility] Oxygen saturation in Arterial blood by Pulse oximetry 2022-06-18 19:37:00 100 /min [facility] Systolic blood pressure 2022-05-18 21:45:00 115 mm[Hg] [facility] Diastolic blood pressure 2022-05-18 21:45:00 78 mm[Hg] [facility] Heart rate 2022-05-18 21:45:00 98 /min [facility] Respiratory rate 2022-05-18 21:45:00 18 /min [facility] Body height 2022-05-18 21:45:00 154.9 cm [facility] Body weight 2022-05-18 21:45:00 78.019 kg [facility] BMI 2022-05-18 21:45:00 32.50 kg/m2 [facility] Systolic blood pressure 2022-05-04 22:31:00 120 mm[Hg] [facility] Diastolic blood pressure 2022-05-04 22:31:00 83 mm[Hg] [facility] Heart rate 2022-05-04 22:22:00 90 /min [facility] Body temperature 2022-05-04 22:22:00 36.72 Mar[place] [facility] Respiratory rate 2022-05-04 22:22:00 18 /min [facility] Body height 2022-05-04 22:22:00 154.9 cm [facility] Body weight 2022-05-04 22:22:00 78.019 kg [facility] BMI 2022-05-04 22:22:00 32.50 kg/m2 [facility] Systolic blood pressure 2022-05-01 08:53:00 136 mm[Hg] [facility] Diastolic blood pressure 2022-05-01 08:53:00 92 mm[Hg] [facility] Heart rate 2022-05-01 08:53:00 84 /min [facility] Respiratory rate 2022-05-01 08:53:00 18 /min [facility] Oxygen saturation in Arterial blood by Pulse oximetry 2022-05-01 08:53:00 100 /min [facility] Body temperature 2022-05-01 07:17:00 36.78 Mar[place] [facility] Body height 2022-05-01 07:17:00 154.9 cm [facility] Body weight 2022-05-01 07:17:00 79.833 kg [facility] BMI 2022-05-01 07:17:00 33.25 kg/m2 [facility] Systolic blood pressure 2022-04-23 15:51:00 133 mm[Hg] [facility] Diastolic blood pressure 2022-04-23 15:51:00 88 mm[Hg] [facility] Heart rate 2022-04-23 15:51:00 92 /min [facility] Body temperature 2022-04-23 15:51:00 36.78 Mar[place] [facility] Body height 2022-04-23 15:51:00 154.9 cm [facility] Body weight 2022-04-23 15:51:00 80.196 kg [facility] BMI 2022-04-23 15:51:00 33.41 kg/m2 [facility] Systolic blood pressure 2022-04-09 20:05:00 132 mm[Hg] [facility] Diastolic blood pressure 2022-04-09 20:05:00 94 mm[Hg] [facility] Heart rate 2022-04-09 20:05:00 87 /min [facility] Body temperature 2022-04-09 20:05:00 36.83 [place] [facility] Respiratory rate 2022-04-09 20:05:00 16 /min [facility] Oxygen saturation in Arterial blood by Pulse oximetry 2022-04-09 20:05:00 100 /min [facility] Body height 2022-04-08 17:37:00 154.9 cm [facility] Body weight 2022-04-08 17:37:00 78.019 kg [facility] BMI 2022-04-08 17:37:00 32.50 kg/m2 [facility] Procedures Procedure Date / Time Performed Performing Clinician Source PREPARE PACKED RBC 2022-11-04 18:14:09 Ramona Thompson [facility] CBC WITH DIFF 2022-11-03 09:35:00 Ramona Thompson [facility] CBC WITH DIFF 2022-11-03 09:35:00 Ramona Thompson [facility] SECTION 2022-11-02 22:49:00 Ramona Thompson [facility] SECTION 2022-11-02 22:49:00 Ramona Thompson [facility] CENTRAL NEURAXIAL BLOCK 2022-11-02 05:40:00 Josep Cleveland [facility] LACTATE DEHYDROGENASE 2022-11-02 03:45:00 Ramona Thompson [facility] URINALYSIS 2022-11-02 03:45:00 Ramona Thompson [facility] PROTEIN CREAT RATIO URINE RANDOM 2022-11-02 03:45:00 Ramona Thompson [facility] LACTATE DEHYDROGENASE 2022-11-02 03:45:00 Ramona Thompson [facility] URINALYSIS 2022-11-02 03:45:00 Ramona Thompson [facility] PROTEIN CREAT RATIO URINE RANDOM 2022-11-02 03:45:00 Ramona Thompson [facility] PREPARE PACKED RBC 2022-11-02 02:09:31 Ramona Thompson [facility] CBC WITH DIFF 2022-11-02 00:57:00 Ramona Thompson [facility] HEPATITIS B SURFACE ANTIGEN 2022-11-02 00:57:00 Ramona Thompson [facility] HB ABO GROUPING 2022-11-02 00:57:00 Ramona Thompson [facility] RHO (D) IMMUNE GLOBULIN 2022-11-02 00:57:00 Jay [facility] ADC OR BILLIE ONLY - RPR 2022-11-02 00:57:00 [facility] 2022-11-02 00:57[facility] ANTIGEN 2022-11-02 00:57:00 Thompson [facility] HB ABO GROUPING 2022-11-02 00:57:00 Jay Ramona [facility] RHO (D) IMMUNE GLOBULIN 2022-11-02 00:57:00 [facility] - RPR 2022-11-02 00:57[facility]00 [facility] - WET PREP 2022-11-01 23:44:00 [facility] - WET PREP 2022-11-01 23:44[facility] 2022-11-01 21:40:54 Thompson [facility] BIOPHYSICAL PROFILE 2022-11-01 21:40:54 Thompson [facility] US PELVIS > 14 WEEKS 2022-11-01 21:10:48 Jay [facility] US PELVIS > 14 WEEKS 2022-11-01 21:10:48 Thompson [facility] ONLY - FERN TEST 2022-11-01 20:15:00 Thompson [facility] ONLY - FERN TEST 2022-11-01 20:15:00 Thompson [facility] ASSIGNMENT OF BENEFITS 2022-11-01 18:08:14 Docto r Unassigned, [place] [facility] ASSIGNMENT OF BENEFITS 2022-11-01 18:08:14 Docto r Unassigned, [place] [facility] HOSPITAL ADMISSION 2022-11-01 05:01:00 Doctor Un assigned, [place] [facility] SGOT (ASPARTATE AMINO TRANSFER) 2022-10-30 12:44:00 Scar Arleen [facility] CREATININE 2022-10-30 12:44:00 Scar [facility] ALANINE AMINO TRANSFERASE(SGPT 2022-10-30 12:44:00 [facility] LACTATE DEHYDROGENASE 2022-10-30 12:44:00 [facility] URIC ACID 2022-10-30 12:44:00 Reynolds-Whitlock, Arleen [facility] CBC WITH DIFF 2022-10-30 12:44[facility] URINALYSIS 2022-10-30 12:44:00 [facility] PROTEIN CREAT RATIO URINE RANDOM 2022-10-30 12:44:00 [facility] ASSIGNMENT OF BENEFITS 2022-10-30 03:46:22 Docto r Unassigned, [place] [facility] CONSENT/REFUSAL FOR DIAGNOSIS AND TREATMENT 2022-10-30 03:45:34 Doctor Unassigned, [place] [facility] POCT URINALYSIS W/O SPECIFIC GRAVITY 2022-10-29 00:00:00 Ramona Thompson [facility] CONSENT/REFUSAL FOR DIAGNOSIS AND TREATMENT 2022-10-28 20:15:46 Doctor Unassigned, [place] [facility] ASSIGNMENT OF BENEFITS 2022-10-28 20:14:16 Docto r Unassigned, [place] [facility] NON-STRESS TEST 2022-10-27 22:59:46 Ramona Thompson [facility] ASSIGNMENT OF BENEFITS 2022-10-27 17:08:44 Docto r Unassigned, [place] [facility] L&D VISIT (NON-DELIVERED) 2022-10-27 05:01:00 Doctor Unassigned, [place] [facility] CONSENT/REFUSAL FOR DIAGNOSIS AND TREATMENT 2022-10-25 18:21:03 Doctor Unassigned, [place] [facility] ASSIGNMENT OF BENEFITS 2022-10-25 18:19:48 Docto r Unassigned, [place] [facility] AUTHORIZATION FOR RELEASE OF PHI 2022-10-25 05:01:00 Doctor Unassigned, [place] [facility] L&D VISIT (NON-DELIVERED) 2022-10-25 05:01:00 Doctor Unassigned, [place] [facility] DSU PRE-OP 2022-10-22 05:01:00 Doctor Unass igned, [place] [facility] POCT URINALYSIS W/O SPECIFIC GRAVITY 2022-10-22 00:00:00 Ramona Thompson [facility] NON-STRESS TEST 2022-10-18 22:56:00 Ramona Thompson m [facility] ASSIGNMENT OF BENEFITS 2022-10-18 20:07:20 Docto r Unassigned, [place] [facility] AUTHORIZATION FOR RELEASE OF PHI 2022-10-18 05:01:00 Doctor Unassigned, [place] [facility] L&D VISIT (NON-DELIVERED) 2022-10-18 05:01:00 Doctor Unassigned, [place] [facility] SECOND AND THIRD TRIMESTER ULTRASOUND 2022-10-15 13:30:00 Ramona Thompson [facility] POCT URINALYSIS W/O SPECIFIC GRAVITY 2022-10-15 00:00:00 Ramona Thompson [facility] US BIOPHYSICAL PROFILE 2022-10-05 21:57:18 Ramona Thompson [facility] CBC WITH DIFF 2022-10-05 21:37:00 Ramona Thompson [facility] HB ABO GROUPING 2022-10-05 21:37:00 Ramona Thompson [facility] CONSENT/REFUSAL FOR DIAGNOSIS AND TREATMENT 2022-10-05 15:40:02 Doctor Unassigned, [place] [facility] NON-STRESS TEST 2022-10-05 14:59:46 Rayray Merrill [facility] TDAP VACCINE, >11 YRS, IM 2022-10-01 15:19:10 Ramona Thompson [facility] POCT URINALYSIS W/O SPECIFIC GRAVITY 2022-10-01 00:00:00 Ramona Thompson [facility] ASSIGNMENT OF BENEFITS 2022-08-28 16:42:17 Docto r Unassigned, [place] [facility] CONSENT/REFUSAL FOR DIAGNOSIS AND TREATMENT 2022-08-28 16:36:43 Doctor Unassigned, [place] [facility] POCT URINALYSIS W/O SPECIFIC GRAVITY 2022-07-23 00:00:00 Ramona Thompson [facility] POCT URINALYSIS W/O SPECIFIC GRAVITY 2022-06-18 00:00:00 Ramona Thompson [facility] POCT URINALYSIS W/O SPECIFIC GRAVITY 2022-05-18 00:00:00 Rayray Merrill [facility] POCT URINALYSIS W/O SPECIFIC GRAVITY 2022-05-04 00:00:00 Ryaray Merrill [facility] US FIRST TRIMESTER LESS THAN 14 WEEKS 2022-05-01 10:03:10 Anoop Pearson [facility] POCT TEST 2022-05-01 08:05:00 Michel Anoop [facility] CBC WITH DIFF 2022-05-01 07:33:00 Anoop Pearson [facility] URINALYSIS 2022-05-01 07:33:00 Anoop Pearson [facility] HB ABO GROUPING 2022-05-01 07:33:00 Anoop Pearson [facility] <14 WEEKS US LIMITED 2022-04-23 16:17:24 Ramona Thompson [facility] >14 WEEKS US LIMITED 2022-04-23 16:16:50 Ramona Thompson [facility] POCT URINALYSIS W/O SPECIFIC GRAVITY 2022-04-23 00:00:00 Ramona Thompson [facility] EXTERNAL PROVIDER RECORDS 2022-04-20 06:01:00 Doctor Unassigned, [place] [facility] XR CHEST 1 VW 2022-04-08 20:17:18 Tiffanie Moreau [facility] LIPASE 2022-04-08 18:02:00 Tiffanie Moreau [facility] MAGNESIUM 2022-04-08 18:02:00 Tiffanie Moreau [facility] HEPATIC FUNCTION PANEL ([id number]) (ALB,T.PRO,BILI T,BU/BC,ALT,AST,ALK PHOS) 2022-04-08 18:02:00 Tiffanie Moreau [facility] BASIC METABOLIC PANEL (NA, K, CL, CO2, GLUCOSE, BUN, CREATININE, CA) 2022-04-08 18:02:00 Tiffanie Moreau [facility] CBC WITH DIFF 2022-04-08 18:02:00 Tiffanie Moreau [facility] URINALYSIS 2022-04-08 18:02:00 Tiffanie Moreau [facility] CONSENT/REFUSAL FOR DIAGNOSIS AND TREATMENT 2022-04-08 17:26:41 Doctor Unassigned, [place] [facility] Encounters Start Date/Time End Date/Time Encounter Type Admission Type Attending Clinicians Care Facility Care Department Encounter ID Source 2022-04-09 15:11:06 Outpatient X [facility] [id number] [facility] 2023-01-16 00:00:00 2023-01-16 00:00:00 Outpatient GC_GCBZW_Ka diyala_S [facility] [id number] [facility] 2022-11-11 11:00:00 2022-11-11 11:32:27 [facility] [id number] [facility] 2022-11-11 11:00:00 2022-11-11 11:32:27 Routine Visit Rayray Merrill [facility] 1.0.114 350.1.13.10 4.2.7.2.686 [id number] 134 [id number] [facility] 2022-11-05 09:45:00 2022-11-05 09:45:00 Outpatient R RAMONA THOMPSON [facility] [id number] [facility] 2022-11-01 13:07:00 2022-11-04 12:00:00 Hospital Encounter Ramona Thompson [facility] 1.840.114 350.1.13.10 4.2.7.2.686 [id number] 083 [id number] [facility] 2022-11-01 13:07:00 2022-11-04 12:00:00 Inpatient P RAMONA THOMPSON [facility] [id number] [facility] 2022-11-02 18:00:00 2022-11-02 19:41:00 Surgery Ramona Thompson [facility] 1.2.840.114 350.1.13.10 4.2.7.2.686 [id number] [id number] [facility] 2022-11-02 00:30:00 2022-11-02 18:00:00 Anesthesia Event [place] Jeffrey S [facility] 1.2.840.114 350.1.13.10 4.2.7.2.686 [id number] [id number] [facility] 2022-11-01 00:00:00 2022-11-01 00:00:00 Telephone Ramona Thompson [facility] 1.2.840.114 350.1.13.10 4.2.7.2.686 [id number] [facility] 2022-11-01 00:00:00 2022-11-01 00:00:00 Orders Only Doctor Unassigned, [place] [facility] 1.2.840.114 350.1.13.10 4.2.7.2.686 [id number] [facility] 2022-10-29 22:55:00 2022-10-30 09:15:00 Outpatient P REYNOLDS-YVETTE S, ARLEEN REYNOLDS-YVETTE S, ARLEEN [facility] [id number] [facility] 2022-10-29 22:55:00 2022-10-30 09:15:00 Hospital Encounter Reynolds-Yvette s, Arleen [facility] 1.2.840.114 350.1.13.10 4.2.7.2.686 [id number] 083 [id number] [facility] 2022-10-29 12:45:00 2022-10-29 13:31:49 Outpatient R RAMONA THOMPSON [facility] [id number] [facility] 2022-10-29 12:45:00 2022-10-29 13:31:49 Routine Visit Ramona Thompson [facility] 1..114 350.1.13.10 4.2.7.2.686 [id number] [facility] 2022-10-28 15:13:00 2022-10-28 17:05:00 Outpatient P RAMONA THOMPSON [facility] [id number] [facility] 2022-10-28 15:13:00 2022-10-28 17:05:00 Hospital Encounter Ramona Thompson [facility] 1..114 350.1.13.10 4.2.7.2.686 [id number] 083 [id number] [facility] 2022-10-27 12:11:00 2022-10-27 18:15:00 Outpatient P RAMONA THOMPSON [facility] [id number] [facility] 2022-10-27 12:11:00 2022-10-27 18:15:00 Hospital Encounter Ramona Thompson [facility] 1..114 350.1.13.10 4.2.7.2.686 [id number] [id number] [facility] 2022-10-27 00:00:00 2022-10-27 00:00:00 Telephone Ramona Thompson [facility] 1..114 350.1.13.10 4.2.7.2.686 [id number] 134 [id number] [facility] 2022-10-27 00:00:00 2022-10-27 00:00:00 Orders Only Doctor Unassigned, [place] [facility] 1.0.114 350.1.13.10 4.2.7.2.686 [id number] [facility] 2022-10-25 13:18:00 2022-10-25 14:30:00 Outpatient P RAMONA THOMPSON [facility] [id number] [facility] 2022-10-25 13:18:00 2022-10-25 14:30:00 Hospital Encounter Ramona Thompson [facility] 1.2.840.114 350.1.13.10 4.2.7.2.686 [id number] 083 [id number] [facility] 2022-10-25 00:00:00 2022-10-25 00:00:00 Telephone Ramona Thompson [facility] 1.2.840.114 350.1.13.10 4.2.7.2.686 [id number] 134 [id number] [facility] 2022-10-22 10:00:00 2022-10-22 10:59:01 Outpatient R RAMONA THOMPSON [facility] [id number] [facility] 2022-10-22 10:00:00 2022-10-22 10:59:01 Routine Visit Ramona Thompson [facility] 1.2.840.114 350.1.13.10 4.2.7.2.686 [id number] 134 [id number] [facility] 2022-10-22 00:00:00 2022-10-22 00:00:00 Orders Only Doctor Unassigned, [place] [facility] 1.2840.114 350.1.13.10 4.2.7.2.686 [id number] 009 [id number] [facility] 2022-10-18 15:15:00 2022-10-18 17:20:00 Outpatient P RAMONA THOMPSON [facility] [id number] [facility] 2022-10-18 15:15:00 2022-10-18 17:20:00 Hospital Encounter Ramona Thompson [facility] 1.840.114 350.1.13.10 4.2.7.2.686 [id number] 083 [id number] [facility] 2022-10-18 15:09:00 2022-10-18 15:09:00 Outpatient P JAY RAMONA [facility] [id number] [facility] 2022-10-18 00:00:00 2022-10-18 00:00:00 Telephone Ramona Thompson [facility] 1.840.114 350.1.13.10 4.2.7.2.686 [id number] 134 [id number] [facility] 2022-10-18 00:00:00 2022-10-18 00:00:00 Orders Only Doctor Unassigned, [place] [facility] 1.840.114 350.1.13.10 4.2.7.2.686 [id number] [id number] [facility] 2022-10-15 09:15:00 2022-10-15 09:55:41 Routine Visit Ramona Thompson [facility] 1.2840.114 350.1.13.10 4.2.7.2.686 [id number] 134 [id number] [facility] 2022-10-15 08:00:00 2022-10-15 08:29:19 Outpatient P ELENI KELLEY [facility] [id number] [facility] 2022-10-15 08:00:00 2022-10-15 08:29:19 [employer]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, Jairo Burk [facility] 1.20.114 350.1.13.10 4.2.7.2.686 [id number] [facility] 2022-10-05 00:00:00 2022-10-05 00:00:00 Case Management Ramona Thompson [facility]ILD[facility] 1.2840.114 350.1.13.10 4.2.7.2.686 [id number] 134 [id number] [facility] 2022-10-04 09:15:00 2022-10-04 09:30:00 [employer] 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[employer] 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 Lab, Jairo Burk [facility] 1.2840.114 350.1.13.10 4.2.7.2.686 [id number] [facility] 2022-10-04 09:15:00 2022-10-04 09:15:00 Outpatient R JAY RAMONA [facility] [id number] [facility] 2022-10-04 00:00:00 2022-10-04 00:00:00 Telephone Ramona Thompson Mike [facility] 1.0.114 350.1.13.10 4.2.7.2.686 [id number] 134 [id number] [facility] 2022-10-01 10:00:00 2022-10-01 10:23:01 Outpatient R JAY RAMONA [facility] [id number] [facility] 2022-10-01 10:00:00 2022-10-01 10:23:01 Routine Visit Ramona Thompson Mike [facility] 1.0.114 350.1.13.10 4.2.7.2.686 [id number] 134 [id number] [facility] 2022-08-28 11:46:00 2022-08-28 14:50:00 Outpatient X REYNOLDS-YVETTE S, ARLEEN REYNOLDS-YVETTE S, [facility] [id number] [facility] 2022-08-28 11:46:00 2022-08-28 14:50:00 Emergency Reynolds-Yvette s, Arleen [facility] 1.20.114 350.1.13.10 4.2.7.2.686 [id number] [facility] 2022-08-28 00:00:00 2022-08-28 00:00:00 Patient Secure Msg Doctor Unassigned, [place] [facility] 1.20.114 350.1.13.10 4.2.7.2.686 [id number] [facility] 2022-08-28 00:00:00 2022-08-28 00:00:00 Nurse Triage Jayson Akhtar [facility] 1.114 350.1.13.10 4.2.7.2.686 [id number] [id number] [facility] 2022-08-19 16:30:00 2022-08-19 16:30:00 Outpatient R ROGERRAYRAY PARRA ROGERAIDA RAYRAY [facility] [id number] [facility] 2022-07-27 11:00:00 2022-07-27 12:00:00 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[employer] 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2.7.2.686 [id number] 134 [id number] [facility] 2022-07-09 11:00:00 2022-07-09 11:00:00 Outpatient R GRACIA-ELIZABETH HARLEYSOL GRACIA-ELIZABETH HARLEYSOL [facility] [id number] [facility] 2022-07-07 00:00:00 2022-07-07 00:00:00 Telephone Ramona Thompson [facility] 1..114 350.1.13.10 4.2.7.2.686 [id number] 134 [id number] [facility] 2022-07-02 10:15:00 2022-07-04 15:04:00 Outpatient E NEWRINAN [facility] [address] [facility] 2022-06-22 00:00:00 2022-06-22 00:00:00 Case Management Ramona Thompson [facility] 1.2.840.114 350.1.13.10 4.2.7.2.686 [id number] 134 [id number] [facility] 2022-06-18 14:30:00 2022-06-18 14:58:41 Outpatient R RAMONA THOMPSON [facility] [id number] [facility] 2022-06-18 14:30:00 2022-06-18 14:58:41 Routine Visit Ramona Thompson [facility] 1.840.114 350.1.13.10 4.2.7.2.686 [id number] 134 [id number] [facility] 2022-06-16 00:00:00 2022-06-16 00:00:00 Refill [facility] 1.2840.114 350.1.13.10 4.2.7.2.686 [id number] 134 [id number] [facility] 2022-06-11 00:00:00 2022-06-11 00:00:00 Telephone Ramona Thompson [facility] 1.2.840.114 350.1.13.10 4.2.7.2.686 [id number] 134 [id number] [facility] 2022-05-20 00:00:00 2022-05-20 00:00:00 Telephone [facility] 1.2840.114 350.1.13.10 4.2.7.2.686 [id number] 134 [id number] [facility] 2022-05-18 16:15:00 2022-05-18 16:15:00 Routine Visit DelfinaRayray zhou [facility] 1.84.114 350.1.13.10 4.2.7.2.686 [id number] 134 [id number] [facility] 2022-05-18 16:15:00 2022-05-18 15:57:36 Outpatient R 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 [id number] [facility] 2022-05-04 16:15:00 2022-05-04 16:53:24 Outpatient R DELFINARAYRAY [facility] [id number] [facility] 2022-05-04 16:15:00 2022-05-04 16:53:24 Routine Visit [facility] 1.84.114 350.1.13.10 4.2.7.2.686 [id number] 134 [id number] [facility] 2022-05-04 00:00:00 2022-05-04 00:00:00 Telephone Jamie Rayray [facility] 1.2.840.114 350.1.13.10 4.2.7.2.686 [id number] 134 [id number] [facility] 2022-05-03 00:00:00 2022-05-03 00:00:00 [facility] 1.2.840.114 350.1.13.10 4.2.7.2.686 [id number] 134 [id number] [facility] 2022-05-01 01:14:00 2022-05-01 05:14:00 Emergency X ANOOP PEARSON [facility] [id number] [facility] 2022-05-01 01:14:00 2022-05-01 05:14:00 Emergency Anoop Pearson [facility] 1.2.840.114 350.1.13.10 4.2.7.2.686 [id number] [facility] 2022-04-30 09:30:00 2022-04-30 09:30:00 Outpatient R [facility] [id number] [facility] 2022 00:00:00 2022 00:00:00 Telephone Jay Ramona [facility] 1.2.840.114 350.1.13.10 4.2.7.2.686 [id number] 134 [id number] [facility] 2022-04-23 09:00:00 2022-04-23 10:19:13 Initial Visit Ramona Thompson [facility] 1.2.840.114 350.1.13.10 4.2.7.2.686 [id number] [facility] 2022-04-23 09:00:00 2022-04-23 10:19:13 Outpatient R RAMONA THOMPSON [facility] [id number] [facility] 2022-04-23 00:00:00 2022-04-23 00:00:00 Telephone JayRamona [facility] 1.2.840.114 350.1.13.10 4.2.7.2.686 [id number] 134 [id number] [facility] 2022-04-20 00:00:00 2022-04-20 00:00:00 Orders Only Doctor Unassigned, [place] [facility] 1.2.840.114 350.1.13.10 4.2.7.2.686 [id number] [facility] 2022-04-16 00:00:00 2022-04-16 00:00:00 Telephone Jay Ramona [facility] 1.2.840.114 350.1.13.10 4.2.7.2.686 [id number] 134 [id number] [facility] 2022-04-13 00:00:00 2022-04-13 00:00:00 Case Management Rayray Merrill [facility] 1.2.840.114 350.1.13.10 4.2.7.2.686 [id number] 134 [id number] [facility] 2022-04-12 00:00:00 2022-04-12 00:00:00 Telephone Jay Ramona [facility] 1.2.840.114 350.1.13.10 4.2.7.2.686 [id number] 134 [id number] [facility] 2022-04-08 11:44:00 2022-04-09 14:55:00 Hospital Encounter Tiffanie Moreau Vien [facility] 1.2.840.114 350.1.13.10 4.2.7.2.686 [id number] [id number] [facility] 2022-04-08 11:44:00 2022-04-09 14:55:00 Outpatient X RAMONA THOMPSON [facility] [id number] [facility] Results Test Description Test Time Test Comments Results Result Co mments Source [facility] IMMUNE [id number] 04:05:18* Test Item Value Reference Range Interpretation Comme nts RHIG CANDIDATE? (test code = 5188) No- see comment Patient is not a candidate for RhIg- Patient is Rh Positive.Performed at [facility] Laboratory [facility] - [facility] Blood [address] [place] [id number] Free: [phone] No. [id number] [facility] CenterUric Acid Vknia1520-34-47 13:18:12* Test Item Value Reference Range Interpretation Comme [facility] URIC ACID (test code = 6386675726) 5.3 mg/dL 2.9-6.0 Lab Interpretation (test cod e = 72639-7) Normal [facility] CenterAlanine Amino Transferase (SGPT)2022-10-30 13:18:12* Test Item Value Reference Range Interpretation Comme [facility] ALTv (test code = 1742-6) 13 U/L 5-35 Lab Interpretation (test cod e = 64460-6) Normal [facility] CenterSG[facility] (Asparate Amino Transfer)2022-10-30 13:18:11* Test Item Value Reference Range Interpretation Comme [facility] AST(SGOT) (test code = 5074910197) 20 U/L 13-40 Lab Interpretation (test cod e = 11350-7) Normal [facility] CenterSerum Mdrxumappa2460-75-18 13:17:51* Test Item Value Reference Range Interpretation Comme [facility] CREATININE (test code = 2537855808) 0.33 mg/dL 0.50-1.04 L eGFR (test code = 6893965543) 239.1 mL/min/1.73m2 DUGLAS (test code = DUGLAS) [...] imaging tests). Lab Interpretation (test code = 26618-3) Abnormal [facility] CenterLactate Oqftgqeloezhv3017-43-75 13:17:31* Test Item Value Reference Range Interpretation Comme nts LDH (test code = 7301528498) 119 U/L 120-246 L Lab Interpretation (test cod e = 31516-2) Abnormal [facility] CenterCBC with Kncrcdzolvai5027-19-82 13:06:50* Test Item Value Reference Range Interpretation Comme nts WBC (test code = 6690-2) 10.42 See_Comment [Automated [employer]] The system which generated this result transmitted reference range: 4.30 - 11.10 10*3/?L. The reference range was not used to interpret this result as normal/abnormal. RBC (test code = 789-8) 3.25 See_Comment L [Automated [employer]] The system which generated this result transmitted [...] 32.1 g/dL 31.6-35.1 RDW-SD (test code = 36525-4) 40.1 fL 39.0-49.9 RDW-CV (test code = 788-0) 13.9 % 12.0-15.5 PLT (test code = 777-3) 262 See_Comment [Automated messa ge] The system which generated this result transmitted reference range: 166 - 358 10*3/?L. The reference range was not used to interpret this result as normal/abnormal. MPV (test code = 91251-5) 10.2 fL 9.5-12.9 NRBC/100 WBC (test code = 9702948578) 0.0 See_Comment [Automated [employer] ssage] The system which generated this result transmitted reference range: 0.0 - 10.0 /100 WBCs. The reference range was not used to interpret this result as normal/abnormal. NRBC x10^3 (test code = 6780390354) See_Comment [Automated [employer] ge] The system which generated this result transmitted reference range: 10*3/?L. The reference range was not used to interpret this result as normal/abnormal. GRAN MAT (NEUT) % (test code = 770-8) 63.8 % IMM GRAN % (test code = 4382944285) 0.90 % LYMPH % (test code = 736-9) 25.0 % MONO % (test code = 5905-5) 9.6 % EOS % (test code = 713-8) 0.4 % BASO % (test code = 706-2) 0.3 % GRAN MAT x10^3(ANC) (test code = 2758778885) 6.65 10*3/uL 1.88-7.09 IMM GRAN x10^3 (test code = 9393538207) 0.09 10*3/uL 0.00-0.06 H LYMPH x10^3 (test code = 731-0) 2.61 10*3/uL 1.32-3.29 MONO x10^3 (test code = 742-7) 1.00 10*3/uL 0.33-0.92 H EOS x10^3 (test code = 711-2) 0.04 10*3/uL 0.03-0.39 BASO x10^3 (test code = 704-7) 0.03 10*3/uL 0.01-0.07 Lab Interpretation (test code = 32331-3) Abnormal [facility] URINALYSIS W/O SPECIFIC [id number] 18:16:00* Test Item Value Reference Range Interpretation [...] = 3257) n/a Negative - Negati ve [facility] URINALYSIS W/O SPECIFIC [id number] 15:41:00* Test Item Value Reference Range Interpretation [...] = 3257) Negative Negative - Negati ve [facility] URINALYSIS W/O SPECIFIC LAHNSOG1111-27-28 14:43:00* Test Item Value Reference Range Interpretation [...] = 3257) n/a Negative - Negati ve [facility] URINALYSIS W/O SPECIFIC [id number] 15:07:00* Test Item Value Reference Range Interpretation [...] = 3257) n/a Negative - Negati ve [facility] URINALYSIS W/O SPECIFIC [id number] 19:19:00* Test Item Value Reference Range Interpretation [...] = 3257) n/a Negative - Negati ve [facility] URINALYSIS W/O SPECIFIC [id number] 19:42:00* Test Item Value Reference Range Interpretation [...] = 3257) n/a Negative - [facility]CIFIC [id number] 21:46:00* Test Item Value Reference Range Interpretation [...] = 3257) N/A Negative - Negati ve [facility] URINALYSIS W/O SPECIFIC [id number] 22:31:00* Test Item Value Reference Range Interpretation [...] = 3257) n/a Negative - [facility]ati ve [facility] Screen - ONCE [id number] 09:06:51* Test Item Value Reference Range Interpretation Comme nts ABO & RH (test code = 20) O Positive Performed at [facility] Blood [address] [id number] Free: [phone] No. [id number] IAT (test code = 1185) Negative Performed at [facility] Laboratory [facility] Blood [address] [place], [place] [id number] Free: [phone] No. [id number] [facility] WITH [id number] 08:14:12* Test Item Value Reference Range Interpretation [...] g/dL 31.6-35.1 H RDW-SD (test code = 36343-2) 39.7 fL 39.0-49.9 RDW-CV (test code = 788-0) 13.4 % 12.0-15.5 PLT (test code = 777-3) 291 See_Comment [Automated messa ge] The system which generated this result transmitted reference range: 166 - 358 10*3/?L. The reference range was not used to interpret this result as normal/abnormal. MPV (test code = 08703-4) 10.0 fL 9.5-12.9 NRBC/100 WBC (test code = 0661666088) 0.0 See_Comment [Automated me ssage] The system which generated this result transmitted reference range: 0.0 - 10.0 /100 WBCs. The reference range was not used to interpret this result as normal/abnormal. NRBC x10^3 (test code = 5952970254) See_Comment [Automated messa ge] The system which generated this result transmitted reference range: 10*3/?L. The reference range was not used to interpret this result as normal/abnormal. GRAN MAT (NEUT) % (test code = 770-8) 60.4 % IMM GRAN % (test code = 8615333227) 0.40 % LYMPH % (test code = 736-9) 30.8 % MONO % (test code = 5905-5) 7.5 % EOS % (test code = 713-8) 0.5 % BASO % (test code = 706-2) 0.4 % GRAN MAT x10^3(ANC) (test code = 0049592379) 7.53 10*3/uL 1.88-7.09 H IMM GRAN x10^3 (test code = 9898545825) 0.05 10*3/uL 0.00-0.06 LYMPH x10^3 (test code = 731-0) 3.84 10*3/uL 1.32-3.29 H MONO x10^3 (test code = 742-7) 0.93 10*3/uL 0.33-0.92 H EOS x10^3 (test code = 711-2) 0.06 10*3/uL 0.03-0.39 BASO x10^3 (test code = 704-7) 0.05 10*3/uL 0.01-0.07 Lab Interpretation (test code = 89102-9) Abnormal [facility] MRPX3414-35-45 08:05:00* Test Item Value Reference Range Interpretation Comme nts POCT PREG (test code = 1605) + On board controls acceptable with C Line (test code = 3574) yes POCT PREG LOT # (test code = 3575) [id number] POCT PREG TEST DATE ( test code = 3576) 06/19/2023 Lab Interpretation (test cod e = 80897-8) [facility] SPECIFIC MANAYAK4364-52-98 15:54:00* Test Item Value Reference Range Interpretation [...] = 3257) Negative Negative - Negati ve [facility] (88800) (ALB,T.PRO,BILI T,BU/BC,ALT,AST,ALK PHOS)2022-04-08 18:47:59* Test Item Value Reference Range Interpretation Comme nts TOTAL BILI (test code = 4145415488) 0.7 mg/dL 0.1-1.1 BILI UNCON (test code = 4235711541) 0.4 mg/dL 0.1-1.1 BILI CONJ (test code = 5476752054) 0.0 mg/dL 0.0-0.3 T PROTEIN (test code = 2849050826) 8.3 g/dL 6.3-8.2 H ALBUMIN (test code = 4605757402) 5.1 g/dL 3.5-5.0 H ALK PHOS (test code = 6602774548) 96 U/L 34-122 ALTv (test code = 1742-6) 47 U/L 5-35 H AST(SGOT) (test code = 1729354933) 46 U/L 13-40 H Lab Interpretation (test cod e = 24891-6) [facility]normal [facility] 18:47:59* Test Item Value Reference Range Interpretation Comme nts LIPASE (test code = 5509782594) 65 U/L 0-220 Lab Interpretation (test cod e = 58780-3) [facility] 18:47:39* Test Item Value Reference Range Interpretation Comme nts MAGNESIUM (test code = 8240415204) 2.1 mg/dL 1.7-2.4 Lab Interpretation (test cod e = 78913-4) [facility] METABOLIC PANEL (NA, K, CL, CO2, GLUCOSE, BUN, CREATININE, CA)2022-04-08 18:26:55* Test Item Value Reference Range Interpretation Comme nts NA (test code = 7262938695) 136 mmol/L 135-145 K (test code = 3338092846) 3.5 mmol/L 3.5-5.0 CL (test code = 1597370876) 103 mmol/L 98-108 CO2 TOTAL (test code = 5466637998) 19 mmol/L 23-31 L AGAP (test code = 0114860833) 2-16 BUN (test code = 7974386319) 10 mg/dL 7-23 GLUCOSE (test code = 6987334232) 101 mg/dL 70-110 CREATININE (test code = 4074180197) 0.54 mg/dL 0.50-1.04 CALCIUM (test code = 1035825927) 9.7 mg/dL 8.6-10.6 eGFR (test code = 8339663328) mL/min/1.73m2 DUGLAS (test code = DUGLAS) Association [...] imaging tests). Lab Interpretation (test code = 56052-8) Abnormal [facility] WITH AGJJ5935-29-53 18:18:14* Test Item Value Reference Range Interpretation Comme nts WBC (test code = 6690-2) See_Comment [Automated [employer] ge] The system which generated this result transmitted reference range: 4.30 - 11.10 10*3/?L. The reference range was not used to interpret this result as normal/abnormal. RBC (test code = 789-8) See_Comment [Automated Endoarta ge] The system which generated this result [...] g/dL 31.6-35.1 H RDW-SD (test code = 17693-1) 38.8 fL 39.0-49.9 L RDW-CV (test code = 788-0) 13.4 % 12.0-15.5 PLT (test code = 777-3) See_Comment [Automated Endoarta ge] The system which generated this result transmitted reference range: 166 - 358 10*3/?L. The reference range was not used to interpret this result as normal/abnormal. MPV (test code = 48169-3) 10.8 fL 9.5-12.9 NRBC/100 WBC (test code = 7904070560) See_Comment [Automated [employer] ssage] The system which generated this result transmitted reference range: 0.0 - 10.0 /100 WBCs. The reference range was not used to interpret this result as normal/abnormal. NRBC x10^3 (test code = 3785233613) See_Comment [Automated messa ge] The system which generated this result transmitted reference range: 10*3/?L. The reference range was not used to interpret this result as normal/abnormal. GRAN MAT (NEUT) % (test code = 770-8) 74.4 % IMM GRAN % (test code = 6996429285) 0.30 % LYMPH % (test code = 736-9) 17.7 % MONO % (test code = 5905-5) 6.9 % EOS % (test code = 713-8) 0.3 % BASO % (test code = 706-2) 0.4 % GRAN MAT x10^3(ANC) (test code = 4722685957) 7.89 10*3/uL 1.88-7.09 H IMM GRAN x10^3 (test code = 2037773409) 0.03 10*3/uL 0.00-0.06 LYMPH x10^3 (test code = 731-0) 1.88 10*3/uL 1.32-3.29 MONO x10^3 (test code = 742-7) 0.73 10*3/uL 0.33-0.92 EOS x10^3 (test code = 711-2) 0.03 10*3/uL 0.03-0.39 BASO x10^3 (test code = 704-7) 0.04 10*3/uL 0.01-0.07 Lab Interpretation (test code = 91540-6) Abnormal [facility] History and Physical Notes Date/Time Note Provider Source 2022-11-01 18:42:53 2045-04-93J14:42:53 TRIAGE HISTORY & PHYSICALIDENTIFYING DATARoselyn García is 27 year old, /White, 36w6d, female with ADAN 11/23/2022, by Last Menstrual Period. : 1995MRN: [id number] Care Physician: PATIENT DOES NOT HAVE A [...] 5 Term 06/16/18 NORMAL SPONT TAMMIE 4 2018 FD 3 Term 07/18/17 NORMAL SPONT [...] the morning. 30 capsule 1 Not Taking LMN67-UJ-uh9-des-wuk-jaoj oil ( GUMMY) 400 mcg-35 mg -25 [...] OF SYSTEMSGeneral: negativeConstitutional: negativeEyes: negativeENT/Mouth: negativeCardiovascular: negativeRespiratory: negativeGastrointestinal:negativeGen itourinary: see HPIMusculoskeletal: negativeSkin/breast: negativeNeurological: negativePsychiatric: negativeEndocrine: negativeHemat/Lymph: negativeAllergic/Immuno:noneVITAL SIGNSBP: (121-134)/(69-89) Temp: [36.7 ?C (98 ?F)] [...] in the current . Negative screening.ASSESSMENT AND PLANMarluis alberto García is a 27 year old at 36w6d who presents for decreased FM and LOF.LOF- PPROM ruled outDecreased FM- 3 minutes decel from baseline of 150s down to 90s noted. Even though BPP 10/26 today, given decreased FM and prolonged decel, will admit patient for delivery due to non-reassuring status near term. Spoke with Dr. Andersen, who agreed with plan of care. Induction- will start pitocin per protocol- Cephalic presentation confirmed- GBS neg- EFW 2955 grams on 11/01/22Anemia- hemoglobin 8.4 on 10/30/22- T&C x [address] Thompson, please see OB Summary for more detailsVien Mike Thompson MD 11/01/2022 6:57 PM 97716-2Ckmsymt and physical muujZY0971-19-04U74:59:28History and physical noteTXT1.2.840.742330.1.13.104.2.7.2 .182528|9431316668VDSqmlvcxwo for patient fmvi22992-5Mxiyvzv and physical noteLNUT[address]Oi[id number] TTWFEWXQIBEZPDTDMOAYZX8620-12-96L90: 59:281.2.840.990241.1.72.3.15|1.2.84 0.039393.1.13.104.2.7.2.727879_18740 [id number] [facility] 2022-10-30 09:20:04 3701-25-98M03:20:04 ANTEPARTUM HISTORY & PHYSICALIDENTIFYING DATARoselyn García is 27 year old, /White, 36w4d, female with ADAN 11/23/2022, by Last Menstrual Period. : 1995MRN: [id number] Care Physician: PATIENT DOES NOT HAVE A PCPHospital Day: 2CHIEF COMPLAINTcrampsHISTORY OF PRESENT MIZFUYC89 year old 36w4d presents with contractions overnight. [...] the morning. 30 capsule 1 Not Taking HIE12-AP-dc3-aia-pky-jzrc oil ( GUMMY) 400 mcg-35 mg -25 [...] (-) fatigueConstitutional: weight gainEyes: negativeENT/Mouth: negativeCardiovascular: negativeRespiratory: negativeGastrointestinal:painGenitou rinary: negativeMusculoskeletal: negativeSkin/breast: negativeNeurological: negativePsychiatric: negativeEndocrine: negativeHemat/Lymph: negativeAllergic/Immuno:noneVITAL SIGNSBP: (122-147)/(79-106) Temp: [36.4 ?C (97.6 ?F)-36.5 [...] [place] [address]-9Tastdzc and physical efriVQ9516-22-29M68:31:05History and physical noteTXT1.2.840.127838.1.13.104.2.7.2 .656207|[id number] for patient qbkf61061-4Fzvnene and physical noteLNOG-OBSTETRICS & GYNECOLOGY STAFFOG-OBSTETRICS & GYNECOLOGY STAFF[address] Gr[id number] AVDSQZFJZPAKZBMMOIWLBP0195-97-41S43: 31:051.2.840.595305.1.72.3.15|1.2.84 0.365241.1.13.104.2.7.2.727879_18729 69825 -OBSTETRICS & GYNECOLOGY STAFF [facility] 2022-10-27 17:52:31 9075-72-78S53:52:31 TRIAGE HISTORY & PHYSICALIDENTIFYING DATARoselyn García is 27 year old, /White, 36w1d, female with ADAN 11/23/2022, by Last Menstrual Period. : 1995MRN: [id number] Care Physician: PATIENT DOES NOT HAVE A [...] the morning. 30 capsule 1 Not Taking GTX45-PG-by8-nbs-jfl-plqb oil ( GUMMY) 400 mcg-35 mg -25 [...] OF SYSTEMSGeneral: negativeConstitutional: negativeEyes: negativeENT/Mouth: negativeCardiovascular: negativeRespiratory: negativeGastrointestinal:negativeGen itourinary: see HPIMusculoskeletal: negativeSkin/breast: negativeNeurological: negativePsychiatric: negativeEndocrine: negativeHemat/Lymph: negativeAllergic/Immuno:noneVITAL SIGNSBP: (125-139)/(67-90) Temp: [36.7 ?C (98 ?F)-36.8 [...] BMZ#2. Strong labor precautions [place] [address]-0Tqdxkdp and physical jbjlUX5210-03-85I76:59:08History and physical noteTXT1.2.840.620085.1.13.104.2.7.2 .064383|6222385482BYDttdvyhbn for patient ijrt69111-5Jgqlmxn and physical noteLNUT[address] CeqnTduawmjtbVoyhdqmjpYHEE6785103403 VQNSUCQPBLKGUKMQJPERLF3829-65-98J91: 59:081.2.840.963981.1.72.3.15|1.2.84 0.620723.1.13.104.2.7.2.727879_18[address] [facility] 2022-10-05 18:22:49 7662-97-24C55:22:49 TRIAGE HISTORY & PHYSICALIDENTIFYING DATARoselyn García is 27 year old, /White, 33w0d, female with ADAN 11/23/2022, by Last Menstrual Period. : 1995MRN: [id number] Care Physician: PATIENT DOES NOT HAVE A PCPCHIEF COMPLAINTSent from clinic for prolonged monitoring s/p fallHISTORY OF PRESENT ILLNESSRoselyn García is a 27 year old female presented for clinic today for evaluation s/p fall. Did not hit her abdomen both times."Patient has had two falls since October 03, 2022. The first fall was October 03. The second fall was "yesterday" [...] the morning. 30 capsule 1 Not Taking EUM58-MQ-au1-tfc-xxn-ejqe oil ( GUMMY) 400 mcg-35 mg -25 [...] OF SYSTEMSGeneral: negativeConstitutional: negativeEyes: negativeENT/Mouth: negativeCardiovascular: negativeRespiratory: negativeGastrointestinal:negativeGen itourinary: negativeMusculoskeletal: negativeSkin/breast: negativeNeurological: negativePsychiatric: negativeEndocrine: negativeHemat/Lymph: negativeAllergic/Immuno:noneVITAL SIGNSBP: (90-111)/(50-78) Temp: [36.7 ?C (98 ?F)-37.4 [...] calf tenderness or edemaGU: SVE cl/50/-3 by INSURANCE APPLICATION INVESTIGATOR OF LABORATORY, PATHOLOGY, AND RADIOLOGY DATALab results:Type [...] Summary for [place] [address]-6Rwzvwgr and physical dfveVV5122-31-52Y73:34:48History and physical noteTXT1.2.840.216323.1.13.104.2.7.2 .538122|3300821111WVPmvsjtchx for patient careUT[address] BxtzWfetloasvOevzdsfgfIZVA1308090257 MFVTRBMOPPJTXRLFQBFKXO5961-00-72K24: 34:481.2.840.028317.1.72.3.15|1.2.84 0.755830.1.13.104.2.7.2.727879_[id number] [facility] Procedure Notes Date/Time Note Provider Source 2022-11-02 01:21:21 9637-38-10F12:21:21Associated Order(s): Central Neuraxial Block Central Neuraxial Block [...] Technique: ROLANDO saline Guidance with: landmark technique}Epidural/Spinal Dewar and/or Catheter: Needle Insertion Depth: 7 Catheter [...] paresthesia, motor and sensory grossly intact BLE. 58113-0Sylnlivxgpqorw procedure jgnkNX5464-56-27D22:28:44Anesthe siology procedure noteTXT1.2.840.514401.1.13.104.2 .7.2.910027|[id number] e for patient kbcm30102-3Uxthlxtu operation noteLNAN-ANESTHESIOLOGY ANESTHESIOLOGISTAN-ANESTHESIOLOG Y ANESTHESIOLOGIST[address] StreetTXTX[address] 2099IMRDLPNDLHEUXFLRBSFCVZ7037-9 815T01:28:441.2.840.351037.1.72 .3.15|1.2.840.545187.1.13.104.2. 7.2.727879_[id number] AN-ANESTHESIOLOGY ANESTHESIOLOGIST [facility] Progress Notes Date/Time Note Provider Source 2022-10-15 09:15:00 1574-96-34N91:15:00F ormatting of this note might be different [...] medication.-Had ultrasound done today, report pending.-Daily kick belaug-Zcvmea-oq in 2 weeks for unless clinically indicated otherwise 90345-8Tvffcxab xqloCM1403-11-70M19:03:19Progress noteTXT1.2.840.739592.1.13.104.2.7.2.16572 9|6983803147NVNsseswjuf for patient care[address] [id number] EJLTSDVKKFJFGBCG3358-05-06A23:03:191.2.840 .435718.1.72.3.15|1.2.840.984458.1.13.104. 2.7.2.727879_[id number] [facility] 2022-10-05 09:45:00 1943-25-36X13:45:00F ormatting of this note might be different from the original.Age: 27 year oldGA: 33w0d Kim García is a 27 y.o. female who presented to clinic for evaluation after a recent fall at 33w0d gestation. Ms. García is a patient of Dr. Thompson.High risk in third bknllewbq12 weeks gestation of pregnancy3. Traumatic injury during [...] note aboveRayray Merrill NP 10/05/2022 10:08 AM 45280-0Pxzdkigk bttuKX7483-90-37B54:13:54Progress noteTXT1.2.840.819703.1.13.104.2.7.2.96845 9|3621451161WTGfujhejbt for patient [address] DtkqDsowryricSkedbuenaRCXU1432477609ARJRYM NMZCEJKWLEYOYQEV7293-54-82V44:13:541.2.840 .564927.1.72.3.15|1.2.840.208093.1.13.104. 2.7.2.727879_[id number] [facility] Notes Date/Time Note Provider Source 2022-11-07 11:48:54 9676-38-11U50:48:54 Addendum created 11/07/22 1148 by Ever Hines MD Clinical Note Signed 97842-3Kqowfxei NygsdhpiQH0473-73-84P66:48:54Addend um DocumentTXT1.2.840.881197.1.13.104. 2.7.2.033994|[id number] for patient tvcg22980-5NaaoWLEMTIWOKH[address] OswsMrgnbbrbrRibgiqlveOZGM466980314 1DQJIWTXBNYPVEEFWKBWXQF1778-07-48X5 1:48:541.2.840.986621.1.72.3.15|1.2 .840.143744.1.13.104.2.7.2.727879_[id number] [facility] 2022-11-07 11:47:57 5595-11-54G83:47:57 Patient: Roselyn García Procedure Summary Date: 11/02/22 [...] to C/S. See C/S encounter for more. 52916-2Iwqcwxemnittya Postoperative evaluation and management zyndMX5481-11-45D23:48:45Anesthesio logy Postoperative evaluation and management noteTXT1.2.840.679708.1.13.104.2.7. 2.589506|6639009268GLAoabmyonf for patient mxis96702-2Xbtanfcv operation noteLNAN-ANESTHESIOLOGY ANESTHESIOLOGISTAN-ANESTHESIOLOGY ANESTHESIOLOGIST[id number] 7UUJZMNLFVVTDGZXWNGCFDL9927-60-55K4 1:48:451.2.840.918528.1.72.3.15|1.2 .840.602836.1.13.104.2.7.2.727879_1 [id number] AN-ANESTHESIOLOGY ANESTHESIOLOGIST [facility] 2022-11-04 11:36:18 8164-58-62E67:36:18 Problem: Falls, Risk ofGoal: Absence of fallsOutcome: Resolved Problem: Complications of hemorrhage (risk or actual)Goal: Absence of active bleedingOutcome: ResolvedGoal: Absence of complicationsOutcome: Resolved Problem: PainGoal: Control of pain at or below patient's documented comfort goalOutcome: ResolvedGoal: Reduction in pain sensationOutcome: Resolved Problem: Infection RiskGoal: Absence of infectionOutcome: Resolved 40047-0Cbgz of care dazmTO8089-80-30L56:36:24Plan of care noteTXT1.2.840.793513.1.13.104.2.7. 2.496130|7399139081FHRynaroqtx for patient sadm63796-7CrudFN431952445Vipbjc T Girod RN[id number] 0WVFOGXMLKDSLBVBAGAYKVZ6080-06-88E9 1:36:241.2.840.156282.1.72.3.15|1.2 .840.093832.1.13.104.2.7.2.727879_1 [id number] Ping Lyons RN [facility] 2022-11-04 06:48:53 8381-82-92B87:48:53 Problem: Falls, Risk ofGoal: Absence of fallsOutcome: Progressing as expected Problem: Complications of hemorrhage (risk or actual)Goal: Absence of active bleedingOutcome: Progressing as expected Problem: PainGoal: Control of pain at or below patient's documented comfort goalOutcome: Progressing as expected Problem: Infection RiskGoal: Absence of infectionOutcome: Progressing as expected 86433-6Brdj of care entqXH6001-68-77M37:48:59Plan of care noteTXT1.2.840.754269.1.13.104.2.7. 2.971870|6546785343VMSdqbhxkoz for patient jhtl32188-3DgkdEZTKDPPLJJ[address]GalvestonGalvestonTXTX[address] 1JKBQFAEVZPMGEMHBRTWMLH0916-18-57E1 6:48:591.2.840.671275.1.72.3.15|1.2 .840.025903.1.13.104.2.7.2.727879_[id number] [facility] 2022-11-03 13:09:18 6649-90-64D45:09:18Summary: Breast Care for non- mothers Images from [...] of antibiotics.Contact your primary care provider. Brendan FONG, RN, IBCLC 76561-1Fsjuoewslv XdjtWG6190-26-21B63:10:07Obstetrics NoteTXT1.2.840.754258.1.13.104.2.7. 2.872610|5913804793VGMifgobjoj for patient magd00727-8QluqME765165079Xdjtfa K Randolph RNUT[address] AzzsHceckgsmyQvlzkrbzhDGBX411896280 8ILEXXVGYUPTHXPBKZTXURB2184-77-22Z4 3:10:071.2.840.530249.1.72.3.15|1.2 .840.001914.1.13.104.2.7.2.727879_1 [id number] Brendan Sim RN [facility] 2022-11-03 07:41:03 6630-86-81G84:41:03 Problem: Falls, Risk ofGoal: Absence of fallsOutcome: Progressing as expected Problem: Complications of hemorrhage (risk or actual)Goal: Absence of active bleedingOutcome: Progressing as expectedGoal: Absence of complicationsOutcome: Progressing as expected Problem: PainGoal: Control of pain at or below patient's documented comfort goalOutcome: Progressing as expectedGoal: Reduction in pain sensationOutcome: Progressing as expected Problem: Infection RiskGoal: Absence of infectionOutcome: Progressing as expected 39880-6Vahl of care pzqdMA9517-14-77E61:41:06Plan of care noteTXT1.2.840.740669.1.13.104.2.7. 2.656946|3082154827NVBdlbkiqtw for patient ydva34817-2FcaeQV127135289Mpuurm E Yarbrough RN[address] ThpyJvrcrpdcqNiclfsfiuLPAY809529762 9OXPUQJFVYOHYGAWJCANPCG2560-63-78O0 7:41:061.2.840.729341.1.72.3.15|1.2 .840.257665.1.13.104.2.7.2.727879_1 [id number] Aishwarya Merchant RN [facility] 2022-11-02 21:17:51 8727-27-72Y31:17:51 Addendum created 11/02/222116 by Ever Hines MD Intraprocedure Event edited 33426-9Ezaubyjl OvmpsuurSU6061-20-02P31:17:51Addend um DocumentTXT1.2.840.420144.1.13.104. 2.7.2.743152|[id number] for patient ssmf44779-2SqotHCFR-LLRXAFBSGBGKBN ANESTHESIOLOGISTYUMA REGIONAL MEDICAL CENTERANESTHESIOLOGY ANESTHESIOLOGIST[id number] 1ERFRSSPBJTCOYKOXCILZTD1878-96-31A1 1:17:511.2.840.689686.1.72.3.15|1.2 .840.110621.1.13.104.2.7.2.727879_1 [id number] AN-ANESTHESIOLOGY ANESTHESIOLOGIST [facility] 2022-11-02 21:16:50 8112-43-21U19:16:50 Addendum created 11/02/222115 by Ever Hines MD Intraprocedure Event edited 24780-4Ofwblxoz CcnelqjnHA1649-46-32J67:16:50Addend um DocumentTXT1.2.840.572225.1.13.104. 2.7.2.222424|[id number] for patient ajbv43602-3YtmoMRMJ-EFMRHBOYJHEYGJ ANESTHESIOLOGISTYUMA REGIONAL MEDICAL CENTERANESTHESIOLOGY ANESTHESI[id number] 4OASEXDWFJYNRAAKEPRZGDP2281-59-03X7 1:16:501.2.840.422073.1.72.3.15|1.2 .840.128155.1.13.104.2.7.2.727879_1 [id number] AN-ANESTHESIOLOGY ANESTHESIOLOGIST [facility] 2022-11-02 20:29:07 5954-83-16N20:29:07 Problem: Intrapartum process (including labor pain)Goal: Absence [...] RiskGoal: Absence of infectionOutcome: Progressing as expected 33924-6Oglm of care lolpRS5184-51-77V15:29:14Plan of care noteTXT1.2.840.949889.1.13.104.2.7. 2.708235|2059192147CKIjvifvekk for patient vqzh76653-5WxzyNM149876099Xwremc L Soell RN[id number] 4FPUYBAHXDZSFKAOSYHGRCS1097-96-28K7 0:29:141.2.840.940078.1.72.3.15|1.2 .840.942708.1.13.104.2.7.2.727879_1 [id number] Debby Shultz RN [facility] 2022-11-02 20:27:55 0836-17-06A65:27:55 Problem: Intrapartum process (including labor pain)Goal: Absence of or reduction of complications of laborOutcome: ResolvedGoal: Able to cope with painOutcome: ResolvedGoal: Adequate to move to next level of careOutcome: ResolvedGoal: Reduction in pain sensationOutcome: Resolved 24594-5Jzip of care bduwIS9719-55-68O60:27:58Plan of care noteTXT1.2.840.306007.1.13.104.2.7. 2.050476|8386483735ZPFekpwgtsk for patient afwq86771-2ZknfTAXSQYKJHR[address] AcbqStnrwxcqxTdquwjryoHNWG923880944 7ASDDLIKLAJPHXPGIVPPIRP0256-23-16K9 0:27:581.2.840.304445.1.72.3.15|1.2 .840.682916.1.13.104.2.7.2.727879_[id number] [facility] 2022-11-02 19:16:21 5047-01-17E19:16:21 Delivery Date: 11/02/2022 Delivery Time: 6:36 PM DELIVERY BY SECTIONDate of Service: : 11/02/2022 at 6:36 PM Admitted for: induction at 36 wks due to non-reassuring FHT, Primary Lower uterine tranverse section with no extension, no BTL, Pfannenstiel, Closed with suture, EBL 650 cc, No complications, Findings: NoneDelivery Summary [place] Sex: male Weight: 2950 g 1 Minute 5 Minute [...] by lateral traction from the surgeon's and assistant controller's hand.Delivery A bladder flap was developed by grasping with [place]er forcep and enter with Metzenbaun scissor. Then [...] aid of fundal pressure applied by the funeral director's assistant surgeon . The body was delivered [...] to pathology.Ramona Thompson MD 11/02/2022 7:24 PM 95078-6Yplym and delivery summary ostdSS5874-22-18L17:44:01Labor and delivery summary noteTXT1.2.840.198805.1.13.104.2.7. 2.123907|[id number] for patient wtmv78030-8ArcyGAZJKBJXZT[address] Qs[id number] 7INAVFDMRXEJQOQPXBNOFHP2773-75-27M4 8:44:011.2.840.069223.1.72.3.15|1.2 .840.272393.1.13.104.2.7.2.727879_[id number] [facility] 2022-11-01 21:56:29 7114-96-82O97:56:29 Name/ MRN / Age / Gender:Roselyn García, [id number] year old female BMI:Estimated body mass index [...] No surgeons listed *Procedure: LABOR CONSULTOR Location: [place] ANESTHESIA OUT OF OR - OR LOCATION Anesthesia HistoryAnesthesia History NegativePrevious Anesthetics/AirwaysCardiovascularNe gative Cardiac ROS PulmonaryNegative Pulmonary ROS Neuro/Musculoskeletal(+) Anxiety [...] to surgery. Hold on DOS. Phentermine: Alert [facility] anesthesiologistSGLT2 Inhibitors: "gliflozins" to be held for [...] during pre-op evaluation: General, Epidural and Spinal 27756-2Qvttkffvcwgrvu Preoperative evaluation and management acfnCL6261-94-94N56:00:12Anesthesio logy Preoperative evaluation and management noteTXT1.2.840.656556.1.13.104.2.7. 2.613428|[id number] for patient ntny46368-4Braibrhd operation noteLNUT[address] StreetDa[id number] 7MTEBIWFYGUJPWGRFTTCGZO1897-92-66Z3 2:00:121.2.840.232134.1.72.3.15|1.2 .840.036708.1.13.104.2.7.2.727879_[id number] [facility] 2022-11-01 19:30:06 8891-11-58J49:30:06 Arrived on [facility] L&D unit:Arrived to [facility] Date & Time: 11/01/2022 1:07 PMOncall Physician: [...] HISTORY Past Medical History: Diagnosis Date Anemia 2015 during Anxiety Chlamydia 2013 tx'd Generalized anxiety [...] the morning. 30 capsule 1 Not Taking RMC36-NL-if7-hqm-zzo-iurt oil ( GUMMY) 400 mcg-35 mg -25 [...] Specimens Obtained:KENDALL ZHOU PREPUrine dip: see flowsheet SVE:/floatingOBIX EFM Strip:t's Cat I strip, noted decel at 1443, [...] SHRUTHI, BPP2. Induction due to decel noted 84086-5Vddpv VcezLN6301-11-97P80:38:25Nurse NoteTXT1.2.840.865381.1.13.104.2.7. 2.844223|[id number] for patient kimk69154-6MrelCYSRAGXUGV[address] [place], [place] [id number] 5JKQDCIQGUPVGUTNOLPPPVP1249-59-61F6 9:38:251.2.840.563761.1.72.3.15|1.2 .840.489879.1.13.104.2.7.2.727879_[id number] [facility] 2022-11-01 09:40:42 2748-90-45O61:40:42 Spoke with patient,states that she leaked a [...] the hospital.Shandra Rodriguez RN 11/01/2022 9:52 AM 05689-8Emnxsawtu encounter PuwbZG2122-03-67V64:53:41Telephone encounter NoteTXT1.2.840.714071.1.13.104.2.7. 2.005379|[id number] for patient zlaa20191-4FxroDFDJCRWMLG02 [address] [id number] 9COBLNSPOYXYGTQGKAYFUKN7780-02-97V8 9:53:411.2.840.785743.1.72.3.15|1.2 .840.189718.1.13.104.2.7.2.727879_[id number] [facility] 2022-11-01 09:24:49 0731-49-18Y48:24:49 Patient is calling she states she is 36 wks 6 days . She states she started leaking fluid yesterday at 630 pm. She states it was clear. She is having irregular contractions but no other symptoms. She states she went in on Tuesday to labor and delivery and she did not want to go back unless necessary, nurse notified. 42532-7Vodwbmuhr encounter KacrON0161-76-59J83:29:10Telephone encounter NoteTXT1.2.840.556322.1.13.104.2.7. 2.436713|[id number] for patient [id number] S Herivelisse[address] Xq[id number] 1AVMBCRHTRFSFXAPDVLVPNG5494-76-05V9 9:29:101.2.840.449171.1.72.3.15|1.2 .840.416604.1.13.104.2.7.2.727879_1 [id number] Angela Gale Moises [facility] 2022-10-29 22:58:53 2140-59-68L37:58:53 Pt reports contractions more consistent since 7:30pm. Pt stated she is , 36w3d. Patient of Dr. Thompson. Report to GENE García Pt transported to L&D via . 05215-7Oxyzccdfz department VurmAT5523-54-27K63:00:38Emergency department NoteTXT1.2.840.276357.1.13.104.2.7. 2.663151|[id number] for patient [id number] D Roman RN[id number] 4PJRZFQXWIOSPASWFTCPYCV1769-16-06R0 3:00:381.2.840.835517.1.72.3.15|1.2 .840.232316.1.13.104.2.7.2.727879_1 [id number] Alix Rick RN [facility] 2022-10-29 12:45:00 7150-57-88E12:45:00 Age: 27 year oldGA: 36w3d -Anxiety: LEEANN-7 [...] given- [place] 1 [place] [address]-4Unhymhyb deouIS2964-13-29G61:34:28Progress noteTXT1.2.840.195809.1.13.104.2.7. 2.020688|[id number] for patient lqjm94296-1LkzlJEYYCVKQMX[id number] 4QBHNYHEERGMCWIPVUIWCZV9659-73-86L0 3:34:281.2.840.000366.1.72.3.15|1.2 .840.921702.1.13.104.2.7.2.727879_[id number] [facility] 2022-10-27 11:45:28 5764-59-22W09:45:28 Spoke with patient. Patient states she has been gage every 5-10 since 7 AM. Patient states contractions are getting worse. Patient denies loss of fluids. Patient states "baby has not moved as much". Patient advised to be seen in labor and delivery. Patient verbalized understanding. Report called to Aide in L&D. Benny Og RN 10/27/2022 11:47 AM 35399-3Ktkouxhsh encounter RkdzQQ4030-19-27W69:47:17Telephone encounter NoteTXT1.2.840.656594.1.13.104.2.7. 2.769329|[id number] for patient yfoy42536-5DukcHZ903360424Kbeqzzr Collins RNUT[address]Ev[id number] 2CDKJUDHUMCTEASUVCTHVFG0991-08-45N2 1:47:171.2.840.998272.1.72.3.15|1.2 .840.172888.1.13.104.2.7.2.727879_1 [id number] Benny Og RN [facility] 2022-10-27 11:29:43 8148-78-22E40:29:43 Pt calling to notify clinic she on her way to L&D due to contractions or should she go into [place] office 52464-8Qxrlmqdum encounter VtufSY6002-10-45V68:31:33Telephone encounter NoteTXT1.2.840.531834.1.13.104.2.7. 2.801639|[id number] for patient [id number] Rodriguez[id number] 1AXTQVXELHRXJOVGFJCANDU4817-08-55L5 1:31:331.2.840.950746.1.72.3.15|1.2 .840.815853.1.13.104.2.7.2.727879_1 [id number] Lizette Cardenas [facility] 2022-10-25 11:11:14 0038-00-28C14:11:14 Pt stated that she is having cx 10 minutes apart. Getting stronger. And lower back pain. Advised pt to go to L&D to be evaluated. Pt verbalized understanding. Called L&D. Report given to Christy. Verbalized understanding. SHEA MAHMOOD RN 10/25/2022 11:13 AM 21515-7Dnzeuidid encounter OvptFP2473-52-64H26:17:21Telephone encounter NoteTXT1.2.840.174063.1.13.104.2.7. 2.402531|[id number] for patient [id number] G Cervantes [id number] 4XOCBVAYPPWQSFGCKFPNPUE3619-09-94T8 1:17:211.2.840.233100.1.72.3.15|1.2 .840.179987.1.13.104.2.7.2.727879_1 [id number] Shea Mahmood RN [facility] 2022-10-25 10:47:39 5779-18-86P71:47:39 Patient is calling stating she is gage, she is 36 weeks, she is asking should she come into the clinic or go straight to the hospital, she states when she goes to the hospital they tell her she needs to go to the clinic. Call [phone]. 69788-1Dcbspkgqf encounter UtapMF9057-83-45P15:49:37Telephone encounter NoteTXT1.2.840.556528.1.13.104.2.7. 2.303898|[id number] for patient [id number] M Mosley[address] Drbg[id number] 9WQDSQUUUSNOYCFZIVYHQPH8451-09-80M2 0:49:371.2.840.089857.1.72.3.15|1.2 .840.959700.1.13.104.2.7.2.727879_1 [id number] Farideh Donovan [facility] 2022-10-22 10:00:00 7528-04-34G35:00:00 Age: 27 year oldGA: 35w3d Vaginal spotting-Was [...] orderedZika precautions reviewedContraception PP: CondomsDelivery consent signed todayRT [place] 2 [place] [address]-6Jvocfhqr kfcjSF5148-63-14F56:13:25Progress noteTXT1.2.840.251194.1.13.104.2.7. 2.424568|[id number] for patient byrl49887-2BzztNOGCXSVZZK[address] XqbgWsr[id number] 7BTQUMLYBKWVEVWJGRVVVFA7344-95-51T7 1:13:251.2.840.764779.1.72.3.15|1.2 .840.996096.1.13.104.2.7.2.727879_[id number] [facility] 2022-10-18 16:50:50 8840-09-33M28:50:50 27 Y/O G1 P 4024 at 34+6 [...] indicated otherwise. Ramona Thompson MD 10/18/2022 5:55 KX17545-6Yzjih KcmpGP9012692Hgi, Vien Cam1.2.840.815558.1.13.104.2.7.2.83 7365RsxDuedFmwTF9960-59-98Q45:55:49 Nurse NoteTXT1.2.840.161395.1.13.104.2.7. 2.525607|[id number] for patient rwmt97619-2NwrfZO761259114Qkcrtz L Soell RN[address] StreetHy[id number] 3LVHAIHKYSXRJEOJZREWMQS0976-04-96L3 7:55:491.2.840.514772.1.72.3.15|1.2 .840.146799.1.13.104.2.7.2.727879_1 [id number] Debby Shultz RN [facility] 2022-10-18 08:43:27 6168-42-96O11:43:27 Report called to L&D, given to Susi.Shandra Rodriguez RN 10/18/2022 8:43 AM 11175-0Vbmeievnj encounter VndvDY1160-73-73Y77:44:10Telephone encounter NoteTXT1.2.840.473004.1.13.104.2.7. 2.423483|[id number] for patient ktdo81610-7JhwfTZRTYOJSGU[id number] 5ZZSGBQENWMOAKCKSWGOXQV2397-99-47Q3 8:44:101.2.840.131685.1.72.3.15|1.2 .840.509416.1.13.104.2.7.2.727879_[id number] [facility] 2022-10-18 08:04:30 9436-57-72X00:04:30 Spoke with patient, states that she has been having cramping onset last night, had spotting on Tuesday with wiping, none since. Cramping continuous about 18-20 minutes apart. Denies having any other symptoms. Good movement. Per Dr. Thompson patient to go to L&D for evaluation. Patient verbalized understanding.Shandra Rodriguez RN 10/18/2022 8:41 AM 51094-4Bnpseoryg encounter IdanJF5154-67-36F12:44:10Telephone encounter NoteTXT1.2.840.055689.1.13.104.2.7. 2.994930|[id number] for patient awku51598-1EyorVTFVRWVQFP02 [id number] 6PPKYZWWEOBQQQDOGYUBUDM8120-84-59K3 8:44:101.2.840.173067.1.72.3.15|1.2 .840.442049.1.13.104.2.7.2.727879_[id number] [facility] 2022-10-18 07:54:08 4540-18-89D95:54:08 35 WEEKS . OVER WEEKEND PATIENT WAS SPOTTING AND IT STOPPED TODAY. SHE STARTING CRAMPING YESTERDAY AND STILL CRAMPING TODAY. TRANSFER CALL TO TRIAGE NURSE. 43792-7Yrxjsywyh encounter ScjiSN3022-88-28G49:56:49Telephone encounter NoteTXT1.2.840.973154.1.13.104.2.7. 2.287692|[id number] for patient [id number] N Wilson[address] ZrkyZ[id number] 6FYSGRBVOYJGXZZIZBBWKCT4558-07-19X5 7:56:491.2.840.826958.1.72.3.15|1.2 .840.229552.1.13.104.2.7.2.727879_1 [id number] Meri Willams [facility] 2022-10-04 12:19:11 0936-46-45M78:19:11 Patient rescheduled 1hr GTT test for tomorrow [...] concerns. Shandra Rodriguez RN 10/04/2022 12:22 PM 85178-1Pyorrmnjo encounter GngmZJ2989-32-30D94:22:55Telephone encounter NoteTXT1.2.840.649267.1.13.104.2.7. 2.717863|[id number] for patient [id number] 9DRQEAYSHXGAYHNJBUMJAUH4180-26-78W1 2:22:551.2.840.656703.1.72.3.15|1.2 .840.174494.1.13.104.2.7.2.727879_[id number] [facility] 2022-10-04 11:12:15 2501-21-41P66:12:15 Pt would like to talk to nurse in regards to her glucose appointment today. Pt states yesterday also she called labor an delivery at the [facility] stating she fell out of the shower but just wanted to inform DR THOMPSON. Pt states she is okay. 57678-5Pbgwtvplz encounter CwkvDW0286-63-44F82:15:57Telephone encounter NoteTXT1.2.840.722743.1.13.104.2.7. 2.909273|[id number] for patient [id number] J Barnshaw[id number] 3RJYLWFZZEFNYUZXDPHNVDR4977-89-94O7 1:15:571.2.840.092842.1.72.3.15|1.2 .840.473574.1.13.104.2.7.2.727879_1 [id number] Marissa Croft [facility]
[2023-09-14] MEDS ORDERED: ONDANSETRON 4 MG/2 ML VIAL ONE (20:30)
[2023-09-14] MEDS ORDERED: NA CHLORIDE 0.9% 1,000 ML ONE (20:30)
[2023-09-14] MEDS ORDERED: MORPHINE 4 MG/ML SYR ONE (20:30)
[2023-09-14 20:50] LABS: Absolute Eosinophils 0.2 K/uL (0-0.5); Absolute Lymphocytes (CBC) 2.5 K/uL (0.7-4.9); Absolute Monocytes 0.4 K/uL (0.1-1.3); Basophils % 0.4 % (0-1.3); Eosinophils % 1.7 % (0-4.4); Hematocrit 32.7 % (36.0-45.0); Hemoglobin 10.9 g/dL (12.0-15.0); Lymphocytes % 27.5 % (15.3-44.8); MCH 25.6 pg (27.0-35.0); MCHC 33.3 g/dL (32.0-36.0); MCV 76.8 fL (80-100); MPV 8.3 fL (7.6-11.3); Monocytes % 4.6 % (3.3-12.3); Neutrophils % 65.8 % (41.7-73.7); Nucleated Red Blood Cells % 0.1 % (0-0); Platelets 293 thou/uL (152-406); RBC Red Blood Cell Count 4.25 M/uL (3.86-4.86); Red Cell Distribution Width 15.9 % (12.1-15.2)
[2023-09-14 20:59] LABS: Albumin 3.7 g/dL (3.4-5.0); Albumin/Globulin Ratio 0.9 (1.1-1.8); Anion Gap 8.9 mEq/L (5.0-15.0); Bilirubin Total 0.3 mg/dL (0.2-1.0); Globulin 4.1 g/dL (2.3-3.5); Potassium 3.9 mEq/L (3.5-5.1); Protein, Total 7.8 g/dL (6.4-8.2)
--- NOTE | 2023-09-14 21:14 | RAD REPORT ---
EXAM DESCRIPTION: US - Abdomen Exam Limited - 09/14/2023 9:04 pm CLINICAL HISTORY: Abd pain;Epigastric pain COMPARISON: Abdomen Pelvis W Contrast dated 04/21/2023 FINDINGS: The gallbladder demonstrates no gallstones. No pericholecystic fluid or gallbladder wall t hickening. The common bile duct is dilated measuring 8 mm. The liver demonstrates no findings of intrahepatic biliary dilatation. IMPRESSION: Negative for cholelithiasis or acute cholecystitis. Mild dilated common bile duct simila r to 04/21/2023. This is of uncertain, if any, clinical significance. Correlate with LFTs. If abnorma l, could consider MRCP for further evaluation.
[2023-09-14] MEDS ORDERED: KETOROLAC 30 MG/ML INJ ONE (21:31)
[2023-09-14 21:42] LABS: Specific Gravity 1.026 (1.005-1.030); Sqamous Epithelial <5 /HPF (None Seen); Urine Bacteria <20 /HPF (<20); Urine Bilirubin NEGATIVE (Negative); Urine Blood 1+ (Negative); Urine Clarity Clear (Clear); Urine Color Light-Yellow (Yellow); Urine Culture Reflex Order NOT NEEDED; Urine Glucose NEGATIVE (Negative); Urine Ketones NEGATIVE (Negative); Urine Microscopic Reflex YN ORDER UMIC; Urine Mucus Slight /HPF (None Seen); Urine Nitrite NEGATIVE (Negative); Urine Protein NEGATIVE (Negative); Urine Urobilinogen Normal (Normal); Urine WBC <5 /HPF (<5); Urine pH 6.5 (5.0-7.0)
--- NOTE | 2023-09-14 21:45 | ER ---
Nurse's Notes [facility] Name: Roselyn Mason Age: 28 yrs Sex: Female : 1995 Arrival Date: 09/14/2023 Time: 19:49 Bed 6 Private MD: Diagnosis: Abdominal pain, nausea, gastritis Presentation: 09/13 20:14 Chief complaint: Patient states: Pt c/o sudden onset of reproducible, sharp/stabbing tl4 midsternal chest pain that gets worse with deep inspiration. Pt states pain is lessened by applying pressure with her hand to the area. Pt also c/o sporadic upper abdominal pain with nausea and chills. Coronavirus screen: At this time, the client does not indicate any symptoms associated with coronavirus-19. Ebola Screen: No symptoms or risks identified at this time. Initial Sepsis Screen: Does the patient meet any 2 criteria? No. Patient's initial sepsis screen is negative. Does the patient have a suspected source of infection? No. Patient's initial sepsis screen is negative. Risk Assessment: Do you want to hurt yourself or someone else? Patient reports no desire to harm self or others. Onset of symptoms was September 14, 2023 at 19:00. 20:14 Method Of Arrival: Ambulatory tl4 20:14 Acuity: TABITHA 3 tl4 Triage Assessment: 20:18 General: Appears uncomfortable, Behavior is cooperative. Pain: Complains of pain in tl4 chest and abdomen. EENT: No signs and/or symptoms were reported regarding the EENT system. Neuro: Level of Consciousness is awake, alert, obeys commands, Oriented to person, place, time, situation, Moves all extremities. Full function Speech is normal. Cardiovascular: Reports chest pain, nausea, Capillary refill < 3 seconds Patient's skin is warm and dry. Respiratory: Airway is patent Respiratory effort is even, unlabored, Respiratory pattern is regular, symmetrical. GI: Reports upper abdominal pain, nausea. : No signs and/or symptoms were reported regarding the genitourinary system. Derm: No signs and/or symptoms reported regarding the dermatologic system. Musculoskeletal: No signs and/or symptoms reported regarding the musculoskeletal system. Historical: - Allergies: 20:17 NKA; tl4 - Home Meds: 20:17 None [Active]; tl4 - PMHx: 20:17 Anemia; Partial esophageal tear; tl4 - PSHx: 20:17 section; tl4 - Immunization history:: Adult Immunizations unknown. - Infectious Disease History:: Denies. - Social history:: Smoking status: Patient reports the use of cigarette tobacco products, denies chronic smoking, but will smoke occasionally. Screenin:00 [facility] ED Fall Risk Assessment (Adult) History of falling in the last 3 months, ha1 including since admission No falls in past 3 months (0 pts) Confusion or Disorientation No (0 pts) Intoxicated or Sedated No (0 pts) Impaired Gait No (0 pts) Mobility Assist Device Used No (0 pt) Altered Elimination No (0 pt) Score/Fall Risk Level 0 - 2 = Low Risk Oriented to surroundings, Maintained a safe environment, Educated pt \T\ family on fall prevention, incl call for assistance when getting out of bed, Hourly rounding (assess needs \T\ fall precautionary measures) done. Abuse screen: Denies threats or abuse. Denies injuries from another. Nutritional screening: No deficits noted. Tuberculosis screening: No symptoms or risk factors identified. 21:57 [facility] ED Fall Risk Assessment (Adult) History of falling in the last 3 months, jb4 including since admission No falls in past 3 months (0 pts) Confusion or Disorientation No (0 pts) Intoxicated or Sedated No (0 pts) Impaired Gait No (0 pts) Mobility Assist Device Used No (0 pt) Altered Elimination No (0 pt) Score/Fall Risk Level 0 - 2 = Low Risk Oriented to surroundings, Maintained a safe environment. Abuse screen: Denies threats or abuse. Nutritional screening: No deficits noted. Tuberculosis screening: No symptoms or risk factors identified. Assessment: 20:20 General: Appears uncomfortable, Behavior is calm, cooperative. Pain: Complains of pain ha1 in epigastric area Pain does not radiate. Pain currently is 10 out of 10 on a pain scale. Quality of pain is described as burning, shooting, throbbing, Pain began gradually. Neuro: Level of Consciousness is awake, alert, obeys commands. Cardiovascular: Capillary refill < 3 seconds Patient's skin is warm and dry. Respiratory: Airway is patent Respiratory effort is even, unlabored, Respiratory pattern is regular, symmetrical. GI: Abdomen is round non-distended, obese, Bowel sounds present X 4 quads. Abd is soft and non tender X 4 quads. Reports upper abdominal pain, epigastric pain, nausea. 21:21 Reassessment: Patient and/or family updated on plan of care and expected duration. Pain ha1 level reassessed. Patient is alert, oriented x 3, equal unlabored respirations, skin warm/dry/pink. pain 6/[address] Torres Notified Patient states symptoms have improved. Vital Signs: 20:14 BP 144 / 94; Pulse 93; Resp 20; Temp 97.6(TE); Pulse Ox 99% on R/A; Weight 81.65 kg; tl4 Height 5 ft. 1 in. ; Pain 10/10; 21:22 BP 133 / 87; Pulse 84; Resp 17 S; Pulse Ox 99% on R/A; ha1 20:14 Body Mass Index 34.01 (81.65 kg, 154.94 cm) tl4 20:14 Pain Scale: Adult tl4 ED Course: 19:53 Patient arrived in ED. gm2 20:02 Galen Torres MD is Attending Physician. sp3 20:15 Inserted saline lock: 20 gauge in left antecubital area, using aseptic technique. Blood ha1 collected. 20:17 Triage completed. tl4 20:20 Arm band placed on right wrist. tl4 20:21 EKG done, by ED staff, reviewed by Galen Torres MD. tl4 20:32 CBC with Diff Sent. ha1 20:32 CMP Sent. ha1 20:32 Lipase Sent. ha1 21:05 Abdomen Limited US In Process Unspecified. EDMS 21:56 Provided Education on: medication administration . ha1 21:57 Patient has correct armband on for positive identification. Bed in low position. Call jb4 light in reach. Side rails up X 1. 21:57 No provider procedures requiring assistance completed. IV discontinued, intact, jb4 bleeding controlled, No redness/swelling at site. Pressure dressing applied. Administered Medications: 20:36 Drug: NS 0.9% IV 1000 ml IV at 1 bolus Per protocol; 1000 mL bolus Route: IV; Rate: 1 jb4 bolus; Site: left antecubital; 20:36 Drug: Ondansetron IVP 4 mg IVP once; over 2 minutes Route: IVP; Site: left antecubital; jb4 21:00 Follow up: Response: No adverse reaction; Marked relief of symptoms ha1 20:36 Drug: morphine IVP or IV 4 mg IVP once over 4 mins Route: IVP; Infused Over: 4 mins; jb4 Site: left antecubital; 21:00 Follow up: Response: No adverse reaction; Marked relief of symptoms; Pain is decreased; ha1 RASS: Alert and Calm (0) 21:39 Drug: Ketorolac IVP 15 mg IVP once Route: IVP; Site: left antecubital; ha1 21:55 Follow up: Response: No adverse reaction; Marked relief of symptoms ha1 Outcome: 21:44 Discharge ordered by . sp3 21:57 Discharged to home ambulatory, jb4 21:57 Condition: stable 21:57 Discharge instructions given to patient, Instructed on discharge instructions, follow up and referral plans. medication usage, Demonstrated understanding of instructions, follow-up care, medications, Prescriptions given X 1, 21:58 Patient left the ED. jb4 Signatures: Dispatcher [employer] EDMS Kenrick Bruce, RN RN jb4 Galen Torres MD MD sp3 Gloria Haile RN RN ha1 Cecy Cornell gm2 Idris Olson RN RN tl4 Corrections: (The following items were deleted from the chart) 21:55 21:21 Reassessment: Patient and/or family updated on plan of care and expected ha1 duration. Pain level reassessed. Patient is alert, oriented x 3, equal unlabored respirations, skin warm/dry/pink. Patient states feeling better. Patient states symptoms have improved. ha1
--- NOTE | 2023-09-14 21:45 | EDPHYS ---
Physician Documentation [facility] Name: Roselyn Mason Age: 28 yrs Sex: Female : 1995 Arrival Date: 09/14/2023 Time: 19:49 Bed 6 Private MD: ED Physician Galen Torres Historical: - Allergies: 09/13 20:17 NKA; tl4 - Home Meds: 20:17 None [Active]; tl4 - PMHx: 20:17 Anemia; Partial esophageal tear; tl4 - PSHx: 20:17 section; tl4 - Immunization history:: Adult Immunizations unknown. - Infectious Disease History:: Denies. - Social history:: Smoking status: Patient reports the use of cigarette tobacco products, denies chronic smoking, but will smoke occasionally. Exam: 20:23 ECG was reviewed by the Attending Physician. EKG demonstrates normal sinus rhythm at 84 sp3 bpm with normal intervals, normal QRS, normal axis, normal axis ST segments without evidence of acute ischemia. Vital Signs: 20:14 BP 144 / 94; Pulse 93; Resp 20; Temp 97.6(TE); Pulse Ox 99% on R/A; Weight 81.65 kg; tl4 Height 5 ft. 1 in. ; Pain 10/10; 21:22 BP 133 / 87; Pulse 84; Resp 17 S; Pulse Ox 99% on R/A; ha1 20:14 Body Mass Index 34.01 (81.65 kg, 154.94 cm) tl4 20:14 Pain Scale: Adult tl4 MDM: 20:19 Patient medically screened. sp3 21:43 ED course: Full workup negative including ultrasound and laboratory values. I believe sp3 patient has standard gastritis and we will safely discharged home with follow-up to PCP at this time.. 09/13 20:23 Order name: CBC with Diff; Complete Time: 21:22 sp3 09/13 20:23 Order name: CMP; Complete Time: 21:22 sp3 09/13 20:23 Order name: Lipase; Complete Time: 21:22 sp3 09/13 20:23 Order name: Test, Urine; Complete Time: 21:42 sp3 09/13 20:23 Order name: Urinalysis w/ reflexes; Complete Time: 21:42 sp3 09/13 20:23 Order name: Abdomen Limited US; Complete Time: 21:22 sp3 09/13 20:23 Order name: IV Saline Lock; Complete Time: 20:32 sp3 09/13 20:23 Order name: Labs collected and sent; Complete Time: 20:32 sp3 Administered Medications: 20:36 Drug: NS 0.9% IV 1000 ml IV at 1 bolus Per protocol; 1000 mL bolus Route: IV; Rate: 1 jb4 bolus; Site: left antecubital; 20:36 Drug: Ondansetron IVP 4 mg IVP once; over 2 minutes Route: IVP; Site: left antecubital; jb4 21:00 Follow up: Response: No adverse reaction; Marked relief of symptoms ha1 20:36 Drug: morphine IVP or IV 4 mg IVP once over 4 mins Route: IVP; Infused Over: 4 mins; jb4 Site: left antecubital; 21:00 Follow up: Response: No adverse reaction; Marked relief of symptoms; Pain is decreased; ha1 RASS: Alert and Calm (0) 21:39 Drug: Ketorolac IVP 15 mg IVP once Route: IVP; Site: left antecubital; ha1 21:55 Follow up: Response: No adverse reaction; Marked relief of symptoms ha1 Disposition Summary: 09/14/23 21:44 Discharge Ordered Notes: Location: Home sp3 Condition: Stable sp3 Diagnosis - Abdominal pain, nausea, gastritis sp3 Followup: sp3 - With: Private Physician - When: Upon discharge from the Emergency Department - Reason: Continuance of care Discharge Instructions: - Discharge Summary Sheet sp3 - Abdominal Pain, Adult sp3 Forms: - Medication Reconciliation Form sp3 - Antibiotic Education sp3 - Prescription Opioid Use sp3 - Patient Portal Instructions sp3 - Leadership Thank You Letter sp3 Prescriptions: - ondansetron 8 mg Oral Tablet,disintegrating - take 1 tablet ORAL route every 12 hours; 20 tablet; Refills: 0, Product sp3 Selection Permitted Signatures: Dispatcher [employer] Kenrick Mello RN RN jb4 Galen Torres MD MD sp3 Gloria Haile RN RN ha1 Idris Olson RN RN tl4
[2023-09-14 22:04] VITALS: BP 133/87; TEMP 97.6; O2SAT 99
--- NOTE | 2023-09-15 14:07 | EKG ---
Test Date: 2023-09-14 Test Time: 20:13:57 Park Services Specialist: TL MEASUREMENT RESULTS: Intervals: Rate: 84 [place]: 134 QRSD: 78 QT: 352 QTc: 415 [place]: P: 43 [place]: 134 QRS: 67 T: 2 INTERPRETIVE STATEMENTS: Normal sinus rhythm Cannot rule out Anterior infarct, age undetermined Abnormal ECG Compared to ECG 07/01/2022 13:44:00 Myocardial infarct finding now present Sinus tachycardia no longer present Electronically Signed On 09-15-23 14:06:23 CDT by Luis Alberto Valladares
== END 2023-09-14 21:58 | disposition home or self-care (01) ==
LOC: ER 19:49
DX: R10.10 Upper abdominal pain, unspecified (principal); R11.0 Nausea; K29.70 Gastritis, unspecified, without bleeding
CPT/HCPCS: 36415; 76705; 80053; 81001; 81025; 83690; 85025; 93005; 96374; 96375; 99284; J2405; J7030

== ENCOUNTER 2023-09-16 22:00 | Emergency (ER) | payer OTHER, SELFPAY ==
--- OUTSIDE RECORDS SUMMARY | 2023-09-16 22:06 | XMS REPORT | Continuity of Care Document ---
Author Name Unknown Address [address] [place] [address] [facility] thconnect Address [address] [place] [address] Care Team Providers Care Pipe Stem Sawyer Name Role Phone Pcp, Patient Does Not Have A Primary Care Physic rylan [email or web address] Attending Clinician RAYRAY Odell Attending Clinician RAYRAY Odell Attending Clinician RAMONA Chau Attending Clinician Unavailable Ramona Thompson MD Attending Clinician [phone] Ruby Cleveland DO Attending Clinician [phone] Ever Hines MD S Attending Clinician [phone] Doctor Unassigned, [place] Attending Clinician U kevinailARLEEN Mendoza Attending Clinician ARLEEN Lemon Attending Clinician ELENI Bassett Attending Clinician Unav ailable Ultrasound, [place] Attending Clinician Eleni Merrill MD Attending Clinician + Lab, Jairo Alfaro Db Attending Clinician Unavailable Giovana RN, Aneatrice Attending Clinician Unavailab le Ultrasound, Adc Mfm Attending Clinician Unavailgrayson Hyde MD, Ibis Attending Clinician + IBIS ÁLVAREZ Attending Clinician NORMAN Alves Attending Clinician Unavail ANOOP Handley Attending Clinician Unavailable ANOOP PEARSON Attending Clinician Unavailable Prieto GRANDE, Tiffanie Parker Attending Clinician [phone] JAY, RAMONA CAM Admitting Clinician Unavailable [email or web address]_S Admitting Clinician Unavailgrayson Thompson MD, Ramona Cam Admitting Clinician [phone] ARLEEN ABBOTT Admitting Clinician NORMAN Kwong Admitting Clinician Unavail ANOOP Handley Admitting Clinician Unavailable Payers Payer Name Policy Type Policy Number Effective Date Expirati on Date Source [facility] [id number] 2022 00:00:00 Problems Condition Name Condition Details Condition Category Status Onset Date Resolution Date Last Treatment Date Treating Clinician Comments Source Encounter for routine follow-up Encounter for routine follow-up Disease Active 11-11 00:00: 00 [facility] acute hospital Visit for wound check Visit for wound check Disease Active 11-11 00:00: 00 [facility] acute hospital Gestationa l hypertensi on, third trimester Gestationa l hypertensi on, third trimester Disease Active 11-02 00:00: 00 [facility] acute hospital Liveborn infant, of lion , born in hospital by delivery Liveborn infant, of lion , born in hospital by delivery Disease Active 15 00:00: 00 [facility] acute hospital Decreased movements in third trimester Decreased movements in third trimester Disease Active 11-01 00:00: 00 General acute hospital Non-reassu ring heart rate or rhythm affecting management of mother Non-reassu ring heart rate or rhythm affecting management of mother Disease Active 8 00:00: 00 [facility] acute hospital Threatened labor, third trimester Threatened labor, third trimester Disease Active 8-09 00:00: 00 [facility] acute hospital Threatened labor, third trimester Threatened labor, third trimester Disease Active 0 8-09 00:00: 00 [facility] acute hospital Irregular uterine contractio ns Irregular uterine contractio ns Disease Active 0 8-04 00:00: 00 General acute hospital Non-reassu ring heart tones complicati ng , antepartum Non-reassu ring heart tones complicati ng , antepartum Disease Active 0 7-18 00:00: 00 General acute hospital Anemia, antepartum , third trimester Anemia, antepartum , third trimester Disease Active 0 7-18 00:00: 00 [facility] acute hospital Non-stress test reactive on surveillan ce Non-stress test reactive on surveillan ce Disease Active 0 7-18 00:00: 00 [facility] acute hospital Traumatic injury during , third trimester Traumatic injury during , third trimester Disease Active 0 7-18 00:00: 00 General acute hospital Fall Fall Disease Active 0 718 00:00: 00 General acute hospital Maternal care for decelerati ons during Maternal care for decelerati ons during Disease Active 0 7-18 00:00: 00 [facility] acute hospital Anemia, antepartum , third trimester Anemia, antepartum , third trimester Disease Active 0 7-18 00:00: 00 [facility] acute hospital Generalize d anxiety disorder Generalize d anxiety disorder Disease Active 3-31 00:00: 00 General acute hospital Constipati on during , antepartum Constipati on during , antepartum Disease Active 0 2-26 00:00: 00 [facility] acute hospital Elevated blood pressure reading without diagnosis of hypertensi on Elevated blood pressure reading without diagnosis of hypertensi on Disease Active 0 2-26 00:00: 00 [facility] acute hospital Constipati on during , antepartum Constipati on during , antepartum Disease Active 0 2-26 00:00: 00 [facility] acute hospital Obesity in Obesity in Disease Active 0 2-03 00:00: 00 [facility] acute hospital Obesity (BMI 30-39.9) Obesity (BMI 30-39.9) Disease Active 2-03 00:00: 00 [facility] acute hospital Pelvic cramping in antepartum period Pelvic cramping in antepartum period Disease Active 2-03 00:00: 00 General acute hospital Constipati on, unspecifie d constipati on type Constipati on, unspecifie d constipati on type Disease Active 2-03 00:00: 00 [facility] acute hospital 7 weeks gestation of 7 weeks gestation of Disease Active 1-19 00:00: 00 General acute hospital 33 weeks gestation of 33 weeks gestation of Disease Active 411 00:00: 00 General acute hospital 36 weeks gestation of 36 weeks gestation of Disease Active 411 00:00: 00 General acute hospital Nausea and vomiting in Nausea and vomiting in Disease Active 2016-03 00:00: 00 [facility] acute hospital Nausea and vomiting during prior to 22 weeks gestation Nausea and vomiting during prior to 22 weeks gestation Disease Active 2016-03 00:00: 00 General acute hospital 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 Will need cytology in 12 months General acute hospital Former tobacco use Former tobacco use Disease Active 12-02 00:00: 00 [facility] acute hospital Overweight (BMI 25.0-29.9) Overweight (BMI 25.0-29.9) Disease Active 12-02 00:00: 00 [facility] acute hospital with history of miscarriag e, first trimester with history of miscarriag e, first trimester Disease Active 12-02 00:00: 00 [facility] acute hospital High-risk in third trimester High-risk in third trimester Disease Active 12-02 00:00: 00 General acute hospital Allergies, Adverse Reactions, Alerts Allergy Name Allergy Type Status Severity Reaction(s) Onset Date Inactive Date Treating Clinician Comments Source NO KNOWN ALLERGIE S Drug Class Active General acute hospital Social History Social Habit Start Date Stop Date Quantity Comments Source ASSERTION 2022-03-02 00:00:00 [facility] Gender identity [facility] Sexual orientation [facility] History of Social function 2022-11-11 00:00:00 2022-11-11 00:00:00 [facility] Exposure to SARS-CoV-2 (event) 2022-07-17 00:00:00 2022-07-27 10:36:00 Not sure [facility] Alcohol intake 2022-07-23 00:00:00 2022-07-23 00:00:00 Lifetime non-drinker (finding) [facility] Tobacco use and exposure 2022-04-23 00:00:00 2022-04-23 00:00:00 Smokeless tobacco non-user [facility] History of tobacco use 2014-12-02 00:00:00 2016-11-25 00:00:00 Cigarette Smoker [facility] Sex Assigned At 1995 00:00:00 1995 00:00:00 [facility] Smoking Status Start Date Stop Date Source Ex-smoker 2022-04-23 00:00:00 2022-04-23 00:00:00 [facility] Medications Ordered Medication Name Filled Medication Name Start Date Stop Date Current Medication? Ordering Clinician Indication Dosage Frequency Signature (SIG) Comments Components Source ibuprofen 800 mg tablet 11-11 00:00: 00 Yes [id number] 800mg Take 1 tablet by mouth every 6 (six) hours as needed for Pain (scale 4-6). General acute hospital ibuprofen (IBU) tablet 600 mg 11-04 17:00: 00 Yes 600mg 600 mg, Oral, Q6H ABX, First dose on Tue11/04/22 at 1200, Until Discontinu ed, Routine [facility] acute hospital hydrocortis one 1 % cream 11-04 13:00: 00 Yes Topical, BID, First dose on Tue11/04/22 at 0800, Until Discontinu ed, Routine [facility] HYDROcodone -acetaminop hen (NORCO) 10-325 mg tablet 1 tablet 11-04 07:40: 08 Yes 1{tbl} 1 tablet, Oral, Q6HPRN, Starting on Tue11/04/22 at 0240, Until Discontinu ed, Routine, Pain (scale 7-10) [facility] HYDROcodone -acetaminop hen (NORCO 5) 5-325 mg tablet 1 tablet 11-04 07:39: 57 Yes 1{tbl} 1 tablet, Oral, Q6HPRN, Starting on Tue11/04/22 at 0239, Until Discontinu ed, Routine, Pain (scale 4-6), Alternate with Ibuprofen [facility] acute hospital ferrous sulfate tablet 325 mg 11-04 01:00: 00 Yes 325mg 325 mg, Oral, BID, First dose on Tue11/03/22 at 2000, Until Discontinu ed, Routine [facility] hydrocortis one 1 % cream 11-04 00:00: 00 Yes [id number] Apply to area(s) 2 (two) times daily. [facility] acute hospital ketorolac (TORADOL) injection 30 mg 11-03 17:00: 00 11-04 16:59 :00 No 30mg 30 mg, Slow IV Push, Q6H ABX, 4 doses, First dose on Tue11/03/22 at 1200, Last dose on Tue11/04/22 at 0600, [facility]ine [facility] sennosides (SENOKOT) tablet 8.6 mg 11-03 14:00: 00 Yes 8.6mg 8.6 mg, Oral, DAILY, First dose on Tue11/03/22 at 0900, Until Discontinu ed, Routine [facility] gabapentin (NEURONTIN) capsule 300 mg 11-03 13:00: 00 Yes 300mg 300 mg, Oral, TID, First dose on Tue11/03/22 at 0800, Until Discontinu ed, Routine [facility] acetaminoph en (TYLENOL) tablet 650 mg 11-03 11:00: 00 Yes 650mg 650 mg, Oral, Q6H ABX, First dose on Tue11/03/22 at 0600, Until Discontinu ed, Routine [facility] acute hospital ceFAZolin (ANCEF) 2,000 mg in NaCl 0.9% (NS) 100 mL MINI-BAG 11-03 07:00: 00 11-03 08:16 :00 No 2000mg 2,000 mg, IV Piggyback, ONCE, 1 dose, On Tue11/03/22 at 0200, Administer over 30 Minutes, 100 mL
Reas on for Anti-Infec tive: Surgical Prophylaxi s
Surgi carlitos Prophylaxi s: DATA ANALYTICS CHIEF SCIENTIST
Duration of therapy: within 24 hours of surgery [facility] acute hospital acetaminoph en ADULT (OFIRMEV) injection 1,000 mg 11-03 06:00: 00 11-03 07:21 :00 No 1000mg 1,000 mg, IV Infusion, at 400 mL/hr Administer over 15 Minutes, Q6H, 1 dose, First dose on Tue11/03/22 at 0100, Routine
Indicatio n: Perioperat lalo Patient General acute hospital HYDROcodone -acetaminop hen (NORCO 5) 5-325 mg tablet 1 tablet 11-03 05:00: 00 Yes 1{tbl} 1 tablet, Oral, Q6HPRN, Starting on Tue11/03/22 at 0000, Until Discontinu ed, Routine, Pain (scale 7-10), Alternate with Ibuprofen [facility] acute hospital rho(D) immune globulin (RHOGAM) syringe 300 mcg 11-03 03:10: 11 Yes 300ug 300 mcg, Intramuscu lar, ONCE, For 1 dose, Conditiona l, Routine [facility] acute hospital diphenhydrA MINE (BENADRYL) injection 25 mg 11-03 03:09: 36 Yes 25mg 25 mg, Slow IV Push, Q6HPRN, Starting on Tue11/02/22 at 2209, Until Discontinu ed, Routine, Itching [facility] acute hospital diphenhydrA MINE (BENADRYL) tablet 25 mg 11-03 03:09: 36 Yes 25mg 25 mg, Oral, Q6HPRN, Starting on Tue11/02/22 at 2208, Until Discontinu ed, Routine, Sleep, Itching [facility] acute hospital ondansetron (ZOFRAN (PF)) injection 4 mg 11-03 03:09: 36 Yes 4mg 4 mg, Slow IV Push, Q8HPRN, Starting on Tue11/02/22 at 2208, Until Discontinu ed, Routine, Nausea and Vomiting (N/V) [facility] acute hospital bisacodyL (DULCOLAX) suppository 10 mg 11-03 03:09: 36 Yes 10mg 10 mg, Rectal, QDAILYPRN, Starting on Tue11/02/22 at 2208, Until Discontinu ed, Routine, Constipati on General acute hospital simethicone (GAS RELIEF (SIMETHICON E)) chewable tablet 160 mg 11-03 03:09: 36 Yes 160mg 160 mg, Oral, PC+HSPRN, Starting on Tue11/02/22 at 2208, Until Discontinu ed, Routine, Gas [facility] acute hospital docusate (COLACE) capsule 200 mg 11-03 03:09: 36 Yes 200mg 200 mg, Oral, QDAILYPRN, Starting on Tue11/02/22 at 2208, Until Discontinu ed, Routine, Constipati on [facility] acute hospital magnesium hydroxide (MILK OF MAGNESIA) 400 mg/5 mL suspension 30 mL 11-03 03:09: 36 Yes 30mL 30 mL, Oral, QDAILYPRN, Starting on Tue11/02/22 at 2208, Until Discontinu ed, Routine, Constipati on General acute hospital lactated ringers IV infusion 1,000 mL 11-03 03:09: 36 Yes 1000mL at 125 mL/hr, 1,000 mL, IV Infusion, PRN, 1 dose, Starting on Tue11/02/22 at 2208, Until Discontinu ed, Routine General acute hospital morpHINE 30 mg/30 mL (fixed dose) 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
Lock out Interval: 6 Minutes
Basal Rate: 1 mg/hr
F our Hour Dose Limit: 32 mg
Intr avenous, 30 mL, CONTINUOUS , Starting on Tue11/02/22 at 2015, Until Tue11/03/22 at 2014 [facility] docusate (COLACE) capsule 100 mg 11-03 00:30: 00 Yes 100mg 100 mg, Oral, DAILY, First dose on Tue11/02/22 at 1930, Until Discontinu ed, Routine [facility] ondansetron (ZOFRAN (PF)) injection 4 mg 11-03 00:14: 24 Yes 4mg 4 mg, Slow IV Push, Q6HPRN, Starting on Tue11/02/22 at 1914, Until Discontinu ed, KATE, Nausea and Vomiting (N/V) [facility] naloxone (NARCAN) injection 0.1 mg 11-03 00:13: 58 Yes .1mg 0.1 mg, Slow IV Push, SEE-INSTRU CTIONS, Starting on Tue11/02/22 at 1913, Until Discontinu ed, Routine [facility] morpHINE 2 mg/mL LOAD & RESCUE INJECTION SYRG 11-03 00:13: 58 Yes Slow IV Push, Routine [facility] mupirocin (BACTROBAN OINT) 2 % skin ointment 11-03 00:09: 00 Yes Intra-op [facility] naloxone (NARCAN) injection 0.2 mg 11-03 00:07: 44 Yes .2mg 0.2 mg, Intramuscu lar, Q3HPRN, Starting on Tue11/02/22 at 1907, Until Discontinu ed, Routine, Itching [facility] naloxone (NARCAN) injection 0.4 mg 11-03 00:07: 44 11-04 15:02 :22 No .4mg 0.4 mg, Slow IV Push, PRN - SEE INSTRUCTIO NS, Starting on Tue11/02/22 at 1907, Until Jenn 11/04/22 at 1002, Routine, Analgesia Recovery [facility] acute hospital acetaminoph en 325 mg tablet 11-03 00:00: 00 Yes [id number] 650mg Take 2 tablets by mouth every 6 (six) hours as needed for Pain (scale 1-3) or Pain (scale 4-6). [facility] acute hospital vitamin w/FA tablet 11-03 00:00: 00 Yes [id number] 1{tbl} Take 1 tablet by mouth in the morning. [facility] acute hospital docusate 100 mg capsule 11-03 00:00: 00 Yes [id number] 200mg Take 2 capsules by mouth once daily as needed for Constipati on. General acute hospital ferrous sulfate 325 mg (65 mg iron) tablet 11-03 00:00: 00 Yes [id number] 325mg Take 1 tablet by mouth in the morning and 1 tablet in the evening. [facility] acute hospital ibuprofen 600 mg tablet 11-03 00:00: 00 Yes [id number] 600mg Take 1 tablet by mouth every 6 (six) hours as needed (Pain). Take with food or milk. [facility] acute hospital HYDROcodone -acetaminop hen 5-325 mg tablet 11-03 00:00: 00 11-11 04:59 :00 No [id number] 1{tbl} Take 1 tablet by mouth every 6 (six) hours as needed for Pain (scale 7-10) (Alternate with Ibuprofen) for up to 7 days. Indication s: acute pain [facility] acute hospital gabapentin 300 mg capsule 11-03 00:00: 00 11-09 04:59 :00 No [id number] 300mg Take 1 capsule by mouth in the morning and 1 capsule at noon and 1 capsule in the evening. Do all this for 5 days. [facility] acute hospital sodium chloride 0.9 % irrigation solution 11-02 23:58: 00 Yes PRN, Starting on Tue11/02/22 at 1858, Until Discontinu ed, Intra-op General acute hospital lactated ringers IV infusion 1,000 mL 11-02 23:15: 00 11-03 03:10 :36 No 1000mL at 125 mL/hr, 1,000 mL, IV Infusion, CONTINUOUS , Starting on Tue11/02/22 at 1815, Until Tue11/02/22 at 2210, KATE [facility] acute hospital ceFAZolin (ANCEF) 2,000 mg in NaCl 0.9% (NS) 100 mL MINI-BAG 11-02 21:47: 58 11-03 00:33 :29 No 2000mg 2,000 mg, IV Piggyback, O.R. HOLDING ONCE, Starting on Tue11/02/22 at 1647, Until Tue11/02/22 at 1933, Administer over 30 Minutes, 100 mL
Reas on for Anti-Infec tive: Surgical Prophylaxi s
Surgi carlitos Prophylaxi s: DATA ANALYTICS CHIEF SCIENTIST
Duration of therapy: within 24 hours of surgery [facility] acute hospital acetaminoph en (TYLENOL) tablet 650 mg 11-02 16:43: 32 11-03 03:11 :56 No 650mg 650 mg, Oral, Q6HPRN, Starting on Tue11/02/22 at 1143, Until Tue11/02/22 at 2211, Routine, Pain (scale 1-3), Pain (scale 4-6) [facility] acute hospital diphenhydrA MINE (BENADRYL) injection 25 mg 11-02 11:04: 00 11-02 11:11 :00 No 25mg 25 mg, Intravenou s, ONCE, 1 dose, On Tue11/02/22 at 0615, Routine [facility] acute hospital fentaNYL-ro pivacaine 2 mcg/mL-0.1 % (PF) in NS 200 mL epidural infusion RTU 11-02 05:59: 00 11-03 02:15 :46 No Epidural, ONCE INTRA PROCEDURE, Starting on Tue11/02/22 at 0059, Until Discontinu ed, Routine, Intra-op [facility] acute hospital oxytocin (PITOCIN) 30 units in NS 500 mL IV infusion 11-02 00:53: 14 11-03 03:11 :28 No 2mU/min at 2-40 mL/hr, IV Infusion, TITRATE, Starting on Tue11/01/22 at 1953, Until Tue11/02/22 at 2211, KATE General acute hospital ondansetron (ZOFRAN (PF)) injection 4 mg 11-01 23:54: 00 11-03 03:11 :56 No 4mg 4 mg, Slow IV Push, Q8HPRN, Nausea and Vomiting (N/V), Starting on Tue11/01/22 at 1854
Do ses of ondansetro n 16 mg and above need to be administer ed via IV piggyback. For Dose >=24mg ECG monitoring is advisable.
General acute hospital lactated ringers IV infusion 500 mL 11-01 23:51: 30 11-03 03:11 :28 No 500mL at 999 mL/hr, 500 mL, IV Infusion, PRN - SEE INSTRUCTIO NS, Starting on Tue11/01/22 at 1851, Until Tue11/02/22 at 2211, Routine [facility] acute hospital D5W-LR IV infusion 1,000 mL 11-01 23:51: 30 11-03 03:11 :28 No 1000mL at 1-125 mL/hr, IV Infusion, TITRATE, Starting on Tue11/01/22 at 1851, Until Tue11/02/22 at 2211, Routine [facility] acute hospital lactated ringers IV infusion 1,000 mL 10-30 05:00: 00 10-30 05:10 :00 No 1000mL at 999 mL/hr, 1,000 mL, IV Infusion, ONCE, 1 dose, On Tue10/30/22 at 0000, STAT General acute hospital betamethaso ne acet,sod phos (CELESTONE SOLUSPAN) 6 mg/mL injection 12 mg 10-28 20:31: 00 10-28 20:58 :00 No 12mg 12 mg, Intramuscu lar, Q24H, 1 dose, First dose on Tue10/28/22 at 1545, Routine [facility] acute hospital betamethaso ne acet,sod phos (CELESTONE SOLUSPAN) 6 mg/mL injection 12 mg 10-27 20:30: 00 10-27 19:52 :00 No 12mg 12 mg, Intramuscu lar, ONCE, 1 dose, On Tue10/27/22 at 1530, Routine [facility] acute hospital NaCl 0.9% (NS) IV infusion 1,000 mL 10-05 19:15: 00 10-05 20:00 :00 No 1000mL at 125 mL/hr, IV Infusion, ONCE, 1 dose, On Tue10/05/22 at 1415, Routine [facility] acute hospital NaCl 0.9% (NS) IV infusion 1,000 mL 10-05 18:15: 00 10-05 18:46 :49 No 1000mL at 999 mL/hr, IV Infusion, ONCE, 1 dose, On Tue10/05/22 at 1315, Routine [facility] acute hospital ferrous sulfate (IRON, FERROUS SULFATE,) 325 mg (65 mg iron) tablet 10-05 00:00: 00 11-03 00:00 :00 No [id number] 325mg Take 1 tablet by mouth in the morning and 1 tablet in the evening. [facility] acute hospital ondansetron (ZOFRAN) 4 mg tablet 19 00:00: 00 Yes 4mg Take 1 tablet by mouth every 8 (eight) hours as needed for Nausea and Vomiting (N/V). [facility] acute hospital fluconazole (DIFLUCAN) 200 mg tablet 4-04 00:00: 00 10-01 00:00 :00 No [id number] 200mg Take 1 tablet by mouth in the morning. [facility] acute hospital ondansetron 4 mg tablet 3-31 14:40: 41 06-18 00:00 :00 No 4mg Take 1 tablet by mouth every 8 (eight) hours as needed for Nausea and Vomiting (N/V). [facility] acute hospital busPIRone 7.5 mg tablet 331 00:00: 00 11-03 00:00 :00 No [id number] 7.5mg Take 1 tablet by mouth in the morning and 1 tablet in the evening. [facility] acute hospital fluconazole 200 mg tablet 3-31 00:00: 00 10-01 00:00 :00 No [id number] 200mg Take 1 tablet by mouth in the morning. [facility] acute hospital metoclopram delores HCl 10 mg tablet 2-15 00:00: 00 11-03 00:00 :00 No [id number] 10mg Take 1 tablet by mouth in the morning and 1 tablet at noon and 1 tablet in the evening. Take before meals. [facility] acute hospital ondansetron 4 mg tablet 05-04 00:00: 00 11-03 00:00 :00 No [id number] 4mg Take 1 tablet by mouth every 8 (eight) hours as needed for Nausea and Vomiting (N/V). [facility] acute hospital ondansetron (ZOFRAN) 4 mg tablet 13 14:01: 54 Yes 4mg Take 4 mg by mouth every 8 (eight) hours as needed for Nausea and Vomiting (N/V). [facility] acute hospital NaCl 0.9% (NS) bolus infusion 1,000 mL 05-01 08:15: 00 05-01 08:54 :00 No 1000mL at 999 mL/hr, 1,000 mL, IV Infusion, ONCE, 1 dose, On 05/01/22 at 0215, KATE [facility] acute hospital ondansetron (ZOFRAN) 4 mg tablet 203 10:19: 56 Yes 4mg Take 4 mg by mouth every 8 (eight) hours as needed for Nausea and Vomiting (N/V). [facility] acute hospital docusate (COLACE) 100 mg capsule 2-03 00:00: 00 11-03 00:00 :00 No [id number] 100mg Take 1 capsule by mouth in the morning. [facility] acute hospital metoclopram delores HCl 10 mg tablet 04-12 00:00: 00 07-23 00:00 :00 No 10mg Take 1 tablet by mouth 3 (three) times daily as needed for Nausea and Vomiting (N/V). [facility] acute hospital ondansetron 4 mg disintegrat ing tablet 04-12 00:00: 00 06-18 00:00 :00 No DISSOLVE 1 TABLET UNDER TONGUE EVERY 4 TO 6 HOURS NEEDED FOR NAUSEA [facility] acute hospital proMETHazin e (PHENERGAN) tablet 25 mg 04-09 13:53: 09 Yes 25mg 25 mg, Oral, Q4HPRN, Starting on Tue04/09/22 at 0753, Until Discontinu ed, Routine, Nausea and Vomiting (N/V) [facility] acute hospital proMETHazin e (PHENERGAN) 25 mg in NaCl 0.9% (NS) 50 mL IV piggyback 04-09 03:42: 49 04-09 13:55 :16 No 25mg 25 mg, IV Piggyback, Q4HPRN, Starting on Tue04/08/22 at 2142, Until Tue04/09/22 at 0755, Routine, Nausea and Vomiting (N/V) [facility] acute hospital D5W-LR IV infusion 1,000 mL 04-09 01:00: 00 Yes 1000mL at 200 mL/hr, IV Infusion, CONTINUOUS , Starting on Tue04/08/22 at 1900, Until Discontinu ed, Routine [facility] acute hospital proMETHazin e 25 mg tablet 04-09 00:00: 00 05-04 00:00 :00 No [id number] 25mg Take 1 tablet by mouth every 4 (four) hours as needed for Nausea and Vomiting (N/V). [facility] acute hospital proMETHazin e 25 mg suppository 04-09 00:00: 00 05-04 00:00 :00 No [id number] 25mg Insert 1 Suppositor y into rectum every 4 (four) hours as needed for N/V unresponsi ve to oral antiemetic s. [facility] acute hospital pyridoxine, VITAMIN B-6, (VITAMIN B-6) 25 mg tablet 04-09 00:00: 00 05-04 00:00 :00 No [id number] 25mg Take 1 tablet by mouth every 6 (six) hours as needed for Nausea and Vomiting (N/V). [facility] acute hospital NaCl 0.9% (NS) IV infusion 1,000 mL 04-08 22:45: 00 04-08 21:56 :00 No 1000mL at 999 mL/hr, Intravenou s, ONCE, 1 dose, On Tue04/08/22 at 1645, [facility] acetaminoph en (TYLENOL) tablet 650 mg 04-08 21:15: 00 04-08 21:04 :00 No 650mg 650 mg, Oral, ONCE, 1 dose, On Tue04/08/22 at 1515, [facility] proCHLORper azine (COMPAZINE) 10 mg in NaCl 0.9% (NS) piggyback 04-08 18:59: 00 04-09 14:01 :59 No 10mg 10 mg, IV Piggyback, at 100 mL/hr Administer over 30 Minutes, Q6HPRN, Starting on Tue04/08/22 at 1259, Until Tue04/09/22 at 0801, Routine, Nausea and Vomiting (N/V) [facility] acute hospital NaCl 0.9% (NS) bolus infusion 1,000 mL 04-08 18:45: 00 04-08 19:11 :00 No 1000mL at 999 mL/hr, 1,000 mL, IV Infusion, ONCE, 1 dose, On Tue04/08/22 at 1245, [facility] proMETHazin e (PHENERGAN) 25 mg in NaCl 0.9% (NS) 50 mL IV piggyback 04-08 18:00: 00 04-08 18:05 :00 No 25mg 25 mg, IV Piggyback, ONCE, 1 dose, On Tue04/08/22 at 1200, KATE [facility] acute hospital SELECT-OB + DHA 29 mg iron-1 mg -250 mg combo pack 04-06 00:00: 00 06-18 00:00 :00 No 1 PACKET BY MOUTH EVERY DAY [facility] acute hospital proMETHazin e 25 mg tablet 2016-03 00:00: 00 04-13 00:00 :00 No [id number] 25mg Take 1 tablet by mouth every 6 (six) hours as needed for Nausea and Vomiting (N/V) (q4-6 hr prn N/V). [facility] acute hospital [id number] 3-dha-epa-f jessica oil ( GUMMY) 400 mcg-35 mg -25 mg-5 mg Chew 12-02 00:00: 00 Yes [id number] 1{tbl} Take 1 tablet by mouth daily. She may have any brand covered by her insurance. [facility] acute hospital [id number] 3-dha-epa-f jessica oil ( GUMMY) 400 mcg-35 mg -25 mg-5 mg Chew 12-02 00:00: 00 11-03 00:00 :00 No [id number] 1{tbl} Take 1 tablet by mouth daily. She may have any brand covered by her insurance. [facility] acute hospital Vital Signs Vital Name Observation Time Observation Value Comments S ource Systolic blood pressure 2022-11-11 16:21:00 127 mm[Hg] [facility] Diastolic blood pressure 2022-11-11 16:21:00 90 mm[Hg] [facility] Heart rate 2022-11-11 16:21:00 92 /min [facility] Respiratory rate 2022-11-11 16:21:00 18 /min [facility] Body height 2022-11-11 16:21:00 162.6 cm [facility] Body weight 2022-11-11 16:21:00 80.74 kg [facility] BMI 2022-11-11 16:21:00 30.55 kg/m2 [facility] Systolic blood pressure 2022-11-04 12:15:00 131 mm[Hg] [facility] Diastolic blood pressure 2022-11-04 12:15:00 79 mm[Hg] [facility] Body temperature 2022-11-04 12:15:00 36.5 Marlin [facility] Respiratory rate 2022-11-04 12:15:00 16 /min [facility] Heart rate 2022-11-04 08:04:00 78 /min Unive [facility] Oxygen saturation in Arterial blood by Pulse oximetry 2022-11-04 08:04:00 99 /min [facility] Systolic blood pressure 2022-11-03 00:30:00 130 mm[Hg] [facility] Diastolic blood pressure 2022-11-03 00:30:00 81 mm[Hg] [facility] Heart rate 2022-11-03 00:30:00 112 /min Unive [facility] Body temperature 2022-11-03 00:30:00 36.78 Marlin [facility] Respiratory rate 2022-11-03 00:30:00 17 /min [facility] Oxygen saturation in Arterial blood by Pulse oximetry 2022-11-03 00:30:00 99 /min [facility] Heart rate 2022-10-30 13:45:00 72 /[facility] in Arterial blood by Pulse oximetry 2022-10-30 13:45:00 99 /min [facility] Systolic blood pressure 2022-10-30 13:35:00 137 mm[Hg] [facility] Diastolic blood pressure 2022-10-30 13:35:00 90 mm[Hg] [facility] Body temperature 2022-10-30 12:45:00 36.5 Marlin [facility] Respiratory rate 2022-10-30 12:45:00 18 /min [facility] Body height 2022-10-30 04:00:00 154.9 cm Univ [facility] Body weight 2022-10-30 04:00:00 87.544 kg [facility] BMI 2022-10-30 04:00:00 36.49 kg/m2 [facility] Systolic blood pressure 2022-10-29 18:18:00 122 mm[Hg] [facility] Diastolic blood pressure 2022-10-29 18:18:00 79 mm[Hg] [facility] Heart rate 2022-10-29 18:17:00 89 /min Unive [facility] Body height 2022-10-29 18:17:00 154.9 cm Univ [facility] Body weight 2022-10-29 18:17:00 87.998 kg [facility] BMI 2022-10-29 18:17:00 36.66 kg/m2 Univ [facility] Systolic blood pressure 2022-10-28 21:09:00 109 mm[Hg] [facility] Diastolic blood pressure 2022-10-28 21:09:00 66 mm[Hg] [facility] Heart rate 2022-10-28 21:09:00 88 /min Unive [facility] Body temperature 2022-10-28 21:09:00 36.67 Marlin [facility] Respiratory rate 2022-10-28 21:09:00 18 /min [facility] Body height 2022-10-28 21:09:00 154.9 cm [facility] Body weight 2022-10-28 21:09:00 85.73 kg Univ [facility] BMI 2022-10-28 21:09:00 35.71 kg/m2 [facility] Oxygen saturation in Arterial blood by Pulse oximetry 2022-10-28 21:09:00 100 /min [facility] Systolic blood pressure 2022-10-27 22:30:00 139 mm[Hg] [facility] Diastolic blood pressure 2022-10-27 22:30:00 88 mm[Hg] [facility] Heart rate 2022-10-27 22:30:00 103 /min Unive [facility] Body temperature 2022-10-27 22:30:00 36.67 Marlin [facility] Respiratory rate 2022-10-27 22:30:00 20 /min [facility] Oxygen saturation in Arterial blood by Pulse oximetry 2022-10-27 21:00:00 100 /min [facility] Body height 2022-10-27 17:30:00 154.9 cm [facility] Body weight 2022-10-27 17:30:00 86.637 kg [facility] BMI 2022-10-27 17:30:00 36.09 kg/m2 [facility] Systolic blood pressure 2022-10-25 18:39:00 100 mm[Hg] [facility] Diastolic blood pressure 2022-10-25 18:39:00 53 mm[Hg] [facility] Heart rate 2022-10-25 18:39:00 96 [facility] Body temperature 2022-10-25 18:39:00 36.72 Marlin [facility] Respiratory rate 2022-10-25 18:39:00 17 /min [facility] Oxygen saturation in Arterial blood by Pulse oximetry 2022-10-25 18:39:00 100 /min [facility] Systolic blood pressure 2022-10-22 15:42:00 116 mm[Hg] [facility] Diastolic blood pressure 2022-10-22 15:42:00 73 mm[Hg] [facility] Heart rate 2022-10-22 15:42:00 93 /min [facility] Body temperature 2022-10-22 15:42:00 36.56 Marlin [facility] Body height 2022-10-22 15:42:00 154.9 cm [facility] Body weight 2022-10-22 15:42:00 87.454 kg [facility] BMI 2022-10-22 15:42:00 36.43 kg/m2 [facility] Heart rate 2022-10-18 22:00:00 84 /min [facility] Oxygen saturation in Arterial blood by Pulse oximetry 2022-10-18 22:00:00 100 /min [facility] Systolic blood pressure 2022-10-18 21:30:00 102 mm[Hg] [facility] Diastolic blood pressure 2022-10-18 21:30:00 62 mm[Hg] [facility] Respiratory rate 2022-10-18 21:30:00 18 /min [facility] Body temperature 2022-10-18 20:36:00 36.72 Marlin [facility] Systolic blood pressure 2022-10-15 14:38:00 134 mm[Hg] [facility] Diastolic blood pressure 2022-10-15 14:38:00 88 mm[Hg] [facility] Heart rate 2022-10-15 14:38:00 90 /min Unive [facility] Body temperature 2022-10-15 14:38:00 36.78 Marlin [facility] Respiratory rate 2022-10-15 14:38:00 16 /min [facility] Body height 2022-10-15 14:38:00 154.9 cm Univ [facility] Body weight 2022-10-15 14:38:00 85.957 kg Univ [facility] BMI 2022-10-15 14:38:00 35.81 kg/m2 Univ [facility] Oxygen saturation in Arterial blood by Pulse oximetry 2022-10-15 14:38:00 97 /min [facility] Systolic blood pressure 2022-10-06 00:00:00 118 mm[Hg] [facility] Diastolic blood pressure 2022-10-06 00:00:00 86 mm[Hg] [facility] Heart rate 2022-10-06 00:00:00 88 /min Unive [facility] Oxygen saturation in Arterial blood by Pulse oximetry 2022-10-06 00:00:00 100 /min [facility] Body temperature 2022-10-05 21:48:00 37.39 Marlin [facility] Respiratory rate 2022-10-05 21:48:00 18 /min [facility] Body height 2022-10-05 16:00:00 154.9 cm Univ [facility] Body weight 2022-10-05 16:00:00 187.6 kg Univ [facility] BMI 2022-10-05 16:00:00 78.19 kg/m2 Univ [facility] Systolic blood pressure 2022-10-05 14:13:00 111 mm[Hg] [facility] Diastolic blood pressure 2022-10-05 14:13:00 78 mm[Hg] [facility] Heart rate 2022-10-05 14:13:00 95 /min Unive [facility] Body temperature 2022-10-05 14:13:00 36.67 Marlin [facility] Respiratory rate 2022-10-05 14:13:00 16 /min [facility] Body height 2022-10-05 14:13:00 154.9 cm Univ [facility] Body weight 2022-10-05 14:13:00 85.548 kg Univ [facility] BMI 2022-10-05 14:13:00 35.64 kg/m2 Univ [facility] Oxygen saturation in Arterial blood by Pulse oximetry 2022-10-05 14:13:00 99 /min [facility] Systolic blood pressure 2022-10-01 14:59:00 112 mm[Hg] [facility] Diastolic blood pressure 2022-10-01 14:59:00 74 mm[Hg] [facility] Heart rate 2022-10-01 14:59:00 89 /min Unive [facility] Body temperature 2022-10-01 14:59:00 36.56 Marlin [facility] Respiratory rate 2022-10-01 14:59:00 16 /min [facility] Body height 2022-10-01 14:59:00 154.9 cm Univ [facility] Body weight 2022-10-01 14:59:00 85.095 kg Univ [facility] BMI 2022-10-01 14:59:00 35.45 [facility]2 [facility] in Arterial blood by Pulse oximetry 2022-10-01 14:59:00 99 /min [facility] Heart rate 2022-08-28 19:35:00 88 /min Unive [facility] Oxygen saturation in Arterial blood by Pulse oximetry 2022-08-28 19:35:00 100 /min [facility] Systolic blood pressure 2022-08-28 17:05:00 114 mm[Hg] [facility] Diastolic blood pressure 2022-08-28 17:05:00 70 mm[Hg] [facility] Body temperature 2022-08-28 17:05:00 36.94 Marlin [facility] Respiratory rate 2022-08-28 17:05:00 18 /min [facility] Body height 2022-08-28 17:05:00 154.9 cm [facility] Body weight 2022-08-28 17:05:00 82.555 [facility] BMI 2022-08-28 17:05:00 34.39 kg/m2 [facility] Sy[facility] blood pressure 2022-07-23 19:21:00 107 mm[Hg] [facility] Diastolic blood pressure 2022-07-23 19:21:00 73 mm[Hg] [facility] Heart rate 2022-07-23 19:21:00 80 /min Unive [facility] Body temperature 2022-07-23 19:21:00 36.72 Marlin [facility] Respiratory rate 2022-07-23 19:21:00 17 /min [facility] Body height 2022-07-23 19:21:00 154.9 cm [facility] Body weight 2022-07-23 19:21:00 80.287 kg Univ [facility] BMI 2022-07-23 19:21:00 33.44 kg/m2 [facility] pressure 2022-06-18 19:37:00 125 mm[Hg] [facility] Diastolic blood pressure 2022-06-18 19:37:00 89 mm[Hg] [facility] Heart rate 2022-06-18 19:37:00 88 /min [facility] Res[facility] rate 2022-06-18 19:37:00 16 /min [facility] Body height 2022-06-18 19:37:00 154.9 cm [facility] Body weight 2022-06-18 19:37:00 79.334 kg [facility] BMI 2022-06-18 19:37:00 33.05 kg/m2 [facility] Oxygen saturation in Arterial blood by Pulse oximetry 2022-06-18 19:37:00 100 /min [facility] Systolic blood pressure 2022-05-18 21:45:00 115 mm[Hg] [facility] Diastolic blood pressure 2022-05-18 21:45:00 78 mm[Hg] [facility] Heart rate 2022-05-18 21:45:00 98 /min Unive [facility] Respiratory rate 2022-05-18 21:45:00 18 /min [facility] Body height 2022-05-18 21:45:00 154.9 cm [facility] Body weight 2022-05-18 21:45:00 78.019 kg [facility] BMI 2022-05-18 21:45:00 32.50 kg/m2 [facility] Systolic blood pressure 2022-05-04 22:31:00 120 mm[Hg] [facility] Diastolic blood pressure 2022-05-04 22:31:00 83 mm[Hg] [facility] Heart rate 2022-05-04 22:22:00 90 /min Unive [facility] Body temperature 2022-05-04 22:22:00 36.72 Marlin [facility] Respiratory rate 2022-05-04 22:22:00 18 /min [facility] Body height 2022-05-04 22:22:00 154.9 cm [facility] Body weight 2022-05-04 22:22:00 78.019 kg [facility] BMI 2022-05-04 22:22:00 32.50 kg/m2 [facility] Systolic blood pressure 2022-05-01 08:53:00 136 mm[Hg] [facility] Diastolic blood pressure 2022-05-01 08:53:00 92 mm[Hg] [facility] Heart rate 2022-05-01 08:53:00 84 /min Unive [facility] Respiratory rate 2022-05-01 08:53:00 18 /min [facility] Oxygen saturation in Arterial blood by Pulse oximetry 2022-05-01 08:53:00 100 /min [facility] Body temperature 2022-05-01 07:17:00 36.78 Marlin [facility] Body height 2022-05-01 07:17:00 154.9 cm [facility] Body weight 2022-05-01 07:17:00 79.833 kg [facility] BMI 2022-05-01 07:17:00 33.25 kg/m2 [facility] Systolic blood pressure 2022-04-23 15:51:00 133 mm[Hg] [facility] Diastolic blood pressure 2022-04-23 15:51:00 88 mm[Hg] [facility] Heart rate 2022-04-23 15:51:00 92 /[facility] Body temperature 2022-04-23 15:51:00 36.78 Marlin [facility] Body height 2022-04-23 15:51:00 154.9 cm [facility] Body weight 2022-04-23 15:51:00 80.196 kg [facility] BMI 2022-04-23 15:51:00 33.41 kg/m2 [facility] Systolic blood pressure 2022-04-09 20:05:00 132 mm[Hg] [facility] Diastolic blood pressure 2022-04-09 20:05:00 94 mm[Hg] [facility] Heart rate 2022-04-09 20:05:00 87 /min [facility] Body temperature 2022-04-09 20:05:00 36.83 Marlin [facility] Respiratory rate 2022-04-09 20:05:00 16 /min [facility] Oxygen saturation in Arterial blood by Pulse oximetry 2022-04-09 20:05:00 100 /min [facility] Body height 2022-04-08 17:37:00 154.9 cm [facility] Body weight 2022-04-08 17:37:00 78.019 kg [facility] BMI 2022-04-08 17:37:00 32.50 kg/m2 [facility] Procedures Procedure Date / Time Performed Performing Clinician Source PREPARE PACKED RBC 2022-11-04 18:14:09 Ramona Thompson [facility] CBC WITH DIFF 2022-11-03 09:35:00 Ramona Thompson [facility] CBC WITH DIFF 2022-11-03 09:35:00 Ramona Thompson [facility] SECTION 2022-11-02 22:49:00 Ramona Thompson [facility] SECTION 2022-11-02 22:49:00 Ramona Thompson [facility] CENTRAL NEURAXIAL BLOCK 2022-11-02 05:40:00 Josep [place] [facility] LACTATE DEHYDROGENASE 2022-11-02 03:45:00 Ramona Thompson [facility] URINALYSIS 2022-11-02 03:45:00 Ramona Thompson [facility] PROTEIN CREAT RATIO URINE RANDOM 2022-11-02 03:45:00 Ramona Thompson [facility] LACTATE DEHYDROGENASE 2022-11-02 03:45:00 Ramona Thompson [facility] URINALYSIS 2022-11-02 03:45:00 Ramona Thompson [facility] PROTEIN CREAT RATIO URINE RANDOM 2022-11-02 03:45:00 Ramona Thompson [facility] PREPARE PACKED RBC 2022-11-02 02:09:31 Ramona Thompson [facility] CBC WITH DIFF 2022-11-02 00:57:00 Ramona Thompson [facility] HEPATITIS B SURFACE ANTIGEN 2022-11-02 00:57:00 Ramona Thompson [facility] HB ABO GROUPING 2022-11-02 00:57:00 Ramona Thompson [facility] RHO (D) IMMUNE GLOBULIN 2022-11-02 00:57:00 Ramona Thompson [facility] ADC OR BILLIE ONLY - RPR 2022-11-02 00:57:00 Ramona Thompson [facility] CBC WITH DIFF 2022-11-02 00:57:00 Ramona Thompson [facility] HEPATITIS B SURFACE ANTIGEN 2022-11-02 00:57:00 Jay [facility] HB ABO GROUPING 2022-11-02 00:57:00 Ramona Thompson [facility] RHO (D) IMMUNE GLOBULIN 2022-11-02 00:57:00 Ramona Thompson [facility] ADC OR BILLIE ONLY - RPR 2022-11-02 00:57:00 Ramona Thompson [facility] CLC OR LCC ONLY - WET PREP 2022-11-01 23:44:00 Ramona Thompson [facility] CLC OR LCC ONLY - WET PREP 2022-11-01 23:44[facility]22-11-01 21:40:54 Jay [facility] BIOPHYSICAL PROFILE 2022-11-01 21:40:54 Jya [facility] US PELVIS > 14 WEEKS 2022-11-01 21:10:48 Jay [facility] US PELVIS > 14 WEEKS 2022-11-01 21:10:48 Jay [facility] ONLY - FERN TEST 2022-11-01 20:15:00 Jay [facility] ONLY - FERN TEST 2022-11-01 20:15:00 Jay [facility] ASSIGNMENT OF BENEFITS 2022-11-01 18:08:14 Docto r Unassigned, [place] [facility] ASSIGNMENT OF BENEFITS 2022-11-01 18:08:14 Docto r Unassigned, [place] [facility] HOSPITAL ADMISSION 2022-11-01 05:01:00 Doctor Un assigned, [place] [facility] SGOT (ASPARTATE AMINO TRANSFER) 2022-10-30 12:44[facility] CREATININE 2022-10-30 12:44[facility](SGPT 2022-10-30 12:44:00 Reynolds[place], [facility] LACTATE DEHYDROGENASE 2022-10-30 12:44:00 [facility] Arleen [facility] URIC ACID 2022-10-30 12:44:00 [facility] Arleen [facility] CBC WITH DIFF 2022-10-30 12:44:00 [facility] URINALYSIS 2022-10-30 12:44[facility] PROTEIN CREAT RATIO URINE RANDOM 2022-10-30 12:44:00 [facility] ASSIGNMENT OF BENEFITS 2022-10-30 03:46:22 Docto r Unassigned, [place] [facility] CONSENT/REFUSAL FOR DIAGNOSIS AND TREATMENT 2022-10-30 03:45:34 Doctor Unassigned, [place] [facility] POCT URINALYSIS W/O SPECIFIC GRAVITY 2022-10-29 00:00:00 Ramona Thompson [facility] CONSENT/REFUSAL FOR DIAGNOSIS AND TREATMENT 2022-10-28 20:15:46 Doctor Unassigned, [place] [facility] ASSIGNMENT OF BENEFITS 2022-10-28 20:14:16 Docto r Unassigned, [place] [facility] NON-STRESS TEST 2022-10-27 22:59:46 Ramona Thompson [facility] ASSIGNMENT OF BENEFITS 2022-10-27 17:08:44 Docto r Unassigned, [place] [facility] L&D VISIT (NON-DELIVERED) 2022-10-27 05:01:00 Doctor Unassigned, [place] [facility] CONSENT/REFUSAL FOR DIAGNOSIS AND TREATMENT 2022-10-25 18:21:03 Doctor Unassigned, [place] [facility] ASSIGNMENT OF BENEFITS 2022-10-25 18:19:48 Docto r Unassigned, [place] [facility] AUTHORIZATION FOR RELEASE OF PHI 2022-10-25 05:01:00 Doctor Unassigned, [place] [facility] L&D VISIT (NON-DELIVERED) 2022-10-25 05:01:00 Doctor Unassigned, [place] [facility] DSU PRE-OP 2022-10-22 05:01:00 Doctor Unass igned, [place] [facility] POCT URINALYSIS W/O SPECIFIC GRAVITY 2022-10-22 00:00:00 Ramona Thompson [facility] NON-STRESS TEST 2022-10-18 22:56:00 Ramona Thompson [facility] ASSIGNMENT OF BENEFITS 2022-10-18 20:07:20 Docto r Unassigned, [place] [facility] AUTHORIZATION FOR RELEASE OF PHI 2022-10-18 05:01:00 Doctor Unassigned, [place] [facility] L&D VISIT (NON-DELIVERED) 2022-10-18 05:01:00 Doctor Unassigned, [place] [facility] SECOND AND THIRD TRIMESTER ULTRASOUND 2022-10-15 13:30:00 Ramona Thompson [facility] POCT URINALYSIS W/O SPECIFIC GRAVITY 2022-10-15 00:00:00 Ramona Thompson [facility] US BIOPHYSICAL PROFILE 2022-10-05 21:57:18 Ramona Thompson [facility] CBC WITH DIFF 2022-10-05 21:37:00 Ramona Thompson [facility] HB ABO GROUPING 2022-10-05 21:37:00 Ramona Thompson [facility] CONSENT/REFUSAL FOR DIAGNOSIS AND TREATMENT 2022-10-05 15:40:02 Doctor Unassigned, [place] [facility] NON-STRESS TEST 2022-10-05 14:59:46 Rayray Merrill [facility] TDAP VACCINE, >11 YRS, IM 2022-10-01 15:19:10 Ramona Thompson [facility] POCT URINALYSIS W/O SPECIFIC GRAVITY 2022-10-01 00:00:00 Ramona Thompson [facility] ASSIGNMENT OF BENEFITS 2022-08-28 16:42:17 Docto r Unassigned, [place] [facility] CONSENT/REFUSAL FOR DIAGNOSIS AND TREATMENT 2022-08-28 16:36:43 Doctor Unassigned, [place] [facility] POCT URINALYSIS W/O SPECIFIC GRAVITY 2022-07-23 00:00:00 JayRamona Mike [facility] POCT URINALYSIS W/O SPECIFIC GRAVITY 2022-06-18 00:00:00 Jay Ramona Mike [facility] POCT URINALYSIS W/O SPECIFIC GRAVITY 2022-05-18 00:00:00 Jamie [facility] POCT URINALYSIS W/O SPECIFIC GRAVITY 2022-05-04 00:00:00 Jamie [facility] US FIRST TRIMESTER LESS THAN 14 WEEKS 2022-05-01 10:03:10 [facility] 2022-05-01 08:05:00 Michel [facility] CBC WITH DIFF 2022-05-01 07:33:00 [facility]-05-01 07:33:00 [facility] HB ABO GROUPING 2022-05-01 07:33:00 Anoop Pearson [facility] <14 WEEKS US LIMITED 2022-04-23 16:17:24 Jay Ramona [facility] >14 WEEKS US LIMITED 2022-04-23 16:16:50 Ramona Thompson [facility] POCT URINALYSIS W/O SPECIFIC GRAVITY 2022-04-23 00:00:00 aJy Ramona Mckeon [facility] EXTERNAL PROVIDER RECORDS 2022-04-20 06:01:00 Doctor Unassigned, [place] [facility] XR CHEST 1 VW 2022-04-08 20:17:18 Tiffanie Moreau [facility] LIPASE 2022-04-08 18:02:00 Tiffanie Moreau [facility] MAGNESIUM 2022-04-08 18:02:00 Tiffanie Moreau [facility] HEPATIC FUNCTION PANEL ([id number]) (ALB,T.PRO,BILI T,BU/BC,ALT,AST,ALK PHOS) 2022-04-08 18:02:00 Tiffanie Moreau [facility] BASIC METABOLIC PANEL (NA, K, CL, CO2, GLUCOSE, BUN, CREATININE, CA) 2022-04-08 18:02:00 Tiffanie Moreau [facility] CBC WITH DIFF 2022-04-08 18:02:00 Tiffanie Moreau [facility] URINALYSIS 2022-04-08 18:02:00 Tiffanie Moreau [facility] CONSENT/REFUSAL FOR DIAGNOSIS AND TREATMENT 2022-04-08 17:26:41 Doctor Unassigned, [place] [facility] Encounters Start Date/Time End Date/Time Encounter Type Admission Type Attending Clinicians Care Facility Care Department Encounter ID Source 2022-04-09 15:11:06 Outpatient X [facility] P[facility] [id number] General acute hospital 2023-01-16 00:00:00 2023-01-16 00:00:00 Outpatient GC_GCBZW_Ka diyala_S [facility] [id number] [facility] 2022-11-11 11:00:00 2022-11-11 11:32:27 [facility] [id number] General acute hospital 2022-11-11 11:00:00 2022-11-11 11:32:27 Routine Visit Rayray Merrill [facility] 1..840.114 350.1.13.10 4.2.7.2.686 [id number] 134 [id number] General acute hospital 2022-11-05 09:45:00 2022-11-05 09:45:00 Outpatient R RAMONA THOMPSON [facility] [id number] General acute hospital 2022-11-01 13:07:00 2022-11-04 12:00:00 Inpatient P RAMONA THOMPSON [facility] PATT [id number] General acute hospital 2022-11-01 13:07:00 2022-11-04 12:00:00 Hospital Encounter Ramona Thompson [facility] 1..840.114 350.1.13.10 4.2.7.2.686 [id number] 083 [id number] General acute hospital 2022-11-02 18:00:00 2022-11-02 19:41:00 Surgery Ramona Thompson [facility] 1.2.840.114 350.1.13.10 4.2.7.2.686 [id number] 013 [id number] General acute hospital 2022-11-02 00:30:00 2022-11-02 18:00:00 Anesthesia Event Cristofer Josepsaud S Ever Hines [facility] 1.2.840.114 350.1.13.10 4.2.7.2.686 [id number] 083 [id number] General acute hospital 2022-11-01 00:00:00 2022-11-01 00:00:00 Telephone Ramona Thompson [facility] 1.2.840.114 350.1.13.10 4.2.7.2.686 [id number] 134 [id number] General acute hospital 2022-11-01 00:00:00 2022-11-01 00:00:00 Orders Only Doctor Unassigned, [place] [facility] 1.2.840.114 350.1.13.10 4.2.7.2.686 [id number] [id number] General acute hospital 2022-10-29 22:55:00 2022-10-30 09:15:00 Outpatient P REYNOLDS-YVETTE S, ARLEEN REYNOLDS-YVETTE S, ARLEEN [facility] [id number] General acute hospital 2022-10-29 22:55:00 2022-10-30 09:15:00 Hospital Encounter Reynolds-Yvette s, Arleen [facility] 1.2.840.114 350.1.13.10 4.2.7.2.686 [id number] 083 [id number] General acute hospital 2022-10-29 12:45:00 2022-10-29 13:31:49 Outpatient R RAMONA THOMPSON [facility] [id number] General acute hospital 2022-10-29 12:45:00 2022-10-29 13:31:49 Routine Visit Ramona Thompson [facility] 1.2.840.114 350.1.13.10 4.2.7.2.686 [id number] 134 [id number] General acute hospital 2022-10-28 15:13:00 2022-10-28 17:05:00 Outpatient P RAMONA THOMPSON [facility] P[facility] [id number] General acute hospital 2022-10-28 15:13:00 2022-10-28 17:05:00 Hospital Encounter Ramona Thompson [facility] 1.2.840.114 350.1.13.10 4.2.7.2.686 [id number] 083 [id number] General acute hospital 2022-10-27 12:11:00 2022-10-27 18:15:00 Outpatient P RAMONA THOMPSON [facility] [id number] General acute hospital 2022-10-27 12:11:00 2022-10-27 18:15:00 Hospital Encounter Ramona Thompson [facility] 1.840.114 350.1.13.10 4.2.7.2.686 [id number] 083 [id number] General acute hospital 2022-10-27 00:00:00 2022-10-27 00:00:00 Telephone Ramona Thompson [facility] 1.840.114 350.1.13.10 4.2.7.2.686 [id number] 134 [id number] General acute hospital 2022-10-27 00:00:00 2022-10-27 00:00:00 Orders Only Doctor Unassigned, [place] [facility] 1.2.840.114 350.1.13.10 4.2.7.2.686 [id number] 009 [id number] General acute hospital 2022-10-25 13:18:00 2022-10-25 14:30:00 Outpatient P RAMONA THOMPSON [facility] [id number] General acute hospital 2022-10-25 13:18:00 2022-10-25 14:30:[address] En[address] Ramona Thompson [facility] 1.2840.114 350.1.13.10 4.2.7.2.686 [id number] 083 [id number] General acute hospital 2022-10-25 00:00:00 2022-10-25 00:00:00 Telephone Ramona Thompson [facility] BU[facility] 1.2840.114 350.1.13.10 4.2.7.2.686 [id number] 134 [id number] General acute hospital 2022-10-22 10:00:00 2022-10-22 10:59:01 Outpatient R RAMONA THOMPSON [facility] [id number] General acute hospital 2022-10-22 10:00:00 2022-10-22 10:59:01 Routine Visit Ramona Thompson [facility] 1.2840.114 350.1.13.10 4.2.7.2.686 [id number] 134 [id number] General acute hospital 2022-10-22 00:00:00 2022-10-22 00:00:00 Orders Only Doctor Unassigned, [place] [facility] 1.20.114 350.1.13.10 4.2.7.2.686 [id number] 009 [id number] General acute hospital 2022-10-18 15:15:00 2022-10-18 17:20:00 Outpatient P RAMONA THOMPSON [facility] [id number] General acute hospital 2022-10-18 15:15:00 2022-10-18 17:20:00 Hospital Encounter Ramona Thompson [facility] 1.2.840.114 350.1.13.10 4.2.7.2.686 [id number] 083 [id number] General acute hospital 2022-10-18 15:09:00 2022-10-18 15:09:00 Outpatient P RAMONA THOMPSON [facility] [id number] General acute hospital 2022-10-18 00:00:00 2022-10-18 00:00:[address] [facility] 1.0.114 350.1.13.10 4.2.7.2.686 [id number] 134 [id number] General acute hospital 2022-10-18 00:00:00 2022-10-18 00:00:00 Orders Only Doctor Unassigned, [place] [facility] 1.840.114 350.1.13.10 4.2.7.2.686 [id number] 009 [id number] General acute hospital 2022-10-15 09:15:00 2022-10-15 09:55:41 Routine Visit Ramona Thompson [facility] 1.0.114 350.1.13.10 4.2.7.2.686 [id number] 134 [id number] General acute hospital 2022-10-15 08:00:00 2022-10-15 08:29:19 Outpatient P ELENI KELLEY [facility] [id number] General acute hospital 2022-10-15 08:00:00 2022-10-15 08:29:19 Statement Services Representative Visit Ultrasound, Jairo-Eleni Bailey [facility] DATA ANALYTICS CHIEF SCIENTIST [facility] MATERNAL & [facility]ILD [facility] 1..114 350.1.13.10 4.2.7.2.686 [id number] General acute hospital 2022-10-05 10:39:00 2022-10-05 21:20:00 Outpatient P RAMONA THOMPSON [facility] [id number] General acute hospital 2022-10-05 10:39:00 2022-10-05 21:20:00 Hospital Encounter Ramona Thompson [facility] 1.2840.114 350.1.13.10 4.2.7.2.686 [id number] 083 [id number] General acute hospital 2022-10-05 09:45:00 2022-10-05 11:57:00 Outpatient R RAYRAY MERRILL CHERYAL [facility] [id number] General acute hospital 2022-10-05 09:45:00 2022-10-05 11:57:00 Routine Visit Rayray Merrill [facility] 1.2840.114 350.1.13.10 4.2.7.2.686 [id number] 134 [id number] General acute hospital 2022-10-05 07:45:00 2022-10-05 08:00:00 Statement Services Representative Visit Lab, Jairo Burk Jay [facility] 1.840.114 350.1.13.10 4.2.7.2.686 [id number] General acute hospital 2022-10-05 00:00:00 2022-10-05 00:00:00 Case Management [facility] 1.284.114 350.1.13.10 4.2.7.2.686 [id number] 134 [id number] General acute hospital 2022-10-04 09:15:00 2022-10-04 09:30:00 Statement Services Representative Visit Lab, Ang - Wm Jay [facility] 1.284.114 350.1.13.10 4.2.7.2.686 [id number] General acute hospital 2022-10-04 09:15:00 2022-10-04 09:15:00 Outpatient R THOMPSON RAMONA [facility] [id number] General acute hospital 2022-10-04 00:00:00 2022-10-04 00:00:00 Telephone Jay Ramona Mckeon [facility] 1..114 350.1.13.10 4.2.7.2.686 [id number] 134 [id number] General acute hospital 2022-10-01 10:00:00 2022-10-01 10:23:01 Outpatient R JAY RAMONA [facility] [id number] General acute hospital 2022-10-01 10:00:00 2022-10-01 10:23:01 Routine Visit Jay Ramona Mckeon [facility] 1..114 350.1.13.10 4.2.7.2.686 [id number] 134 [id number] General acute hospital 2022-08-28 11:46:00 2022-08-28 14:50:00 Outpatient X REYNOLDS-YVETTE S, ARLEEN REYNOLDS-YVETTE S, ARLEEN [facility] PATT [id number] General acute hospital 2022-08-28 11:46:00 2022-08-28 14:50:00 Emergency Reynolds-Yvette s, Arleen [facility] 1..114 350.1.13.10 4.2.7.2.686 [id number] 083 [id number] General acute hospital 2022-08-28 00:00:00 2022-08-28 00:00:00 Patient Secure Msg Doctor Unassigned, [place] [facility] 1..114 350.1.13.10 4.2.7.2.686 [id number] General acute hospital 2022-08-28 00:00:00 2022-08-28 00:00:00 Nurse Triage Jayson Akhtra [facility] 1.0.114 350.1.13.10 4.2.7.2.686 [id number] [id number] General acute hospital 2022-08-19 16:30:00 2022-08-19 16:30:00 Outpatient R RAYRAY MERRILL SHIRLEYRAYRAY REYES [facility] [id number] General acute hospital 2022-07-27 11:00:00 2022-07-27 12:00:00 Statement Services Representative Visit Ultrasound, Adc [facility] [place] [facility] 1.840.114 350.1.13.10 4.2.7.2.686 [id number] 134 [id number] General acute hospital 2022-07-27 11:00:00 2022-07-27 11:00:00 Outpatient R IBIS LAWTON [facility] [id number] General acute hospital 2022-07-23 14:30:00 2022-07-23 14:38:59 Outpatient R RAMONA THOMPSON [facility] [id number] General acute hospital 2022-07-23 14:30:00 2022-07-23 14:38:59 Routine Visit Ramona Thompson [facility] 1..114 350.1.13.10 4.2.7.2.686 [id number] 134 [id number] General acute hospital 2022-07-09 11:00:00 2022-07-09 11:00:00 Outpatient R ARLEEN BLACK-ELIZABETH HARLEYSOL [facility] [id number] General acute hospital 2022-07-07 00:00:00 2022-07-07 00:00:00 Telephone Ramona Thompson [facility] 1..114 350.1.13.10 4.2.7.2.686 [id number] 134 [id number] General acute hospital 2022-07-02 10:15:00 2022-07-04 15:04:00 Outpatient E NEWRINAN [facility] [id number] [facility] 2022-06-22 00:00:00 2022-06-22 00:00:00 Case Management Ramona Thompson [facility] BUILD[facility] 1.2.840.114 350.1.13.10 4.2.7.2.686 [id number] 134 [id number] General acute hospital 2022-06-18 14:30:00 2022-06-18 14:58:41 Outpatient R RAMONA THOMPSON [facility] [id number] General acute hospital 2022-06-18 14:30:00 2022-06-18 14:58:41 Routine Visit Ramona Thompson [facility] 1.0.114 350.1.13.10 4.2.7.2.686 [id number] 134 [id number] General acute hospital 2022-06-16 00:00:00 2022-06-16 00:00:00 Refill Jamie [facility] 1.0.114 350.1.13.10 4.2.7.2.686 [id number] 134 [id number] General acute hospital 2022-06-11 00:00:00 2022-06-11 00:00:00 Telephone Ramona Thompson [facility] BUILD[facility] 1.84.114 350.1.13.10 4.2.7.2.686 [id number] 134 [id number] General acute hospital 2022-05-20 00:00:00 2022-05-20 00:00:[address] [facility] 1.20.114 350.1.13.10 4.2.7.2.686 [id number] 134 [id number] General acute hospital 2022-05-18 16:15:00 2022-05-18 16:15:00 Routine Visit Rayray Merrill [facility] 1..114 350.1.13.10 4.2.7.2.686 [id number] 134 [id number] General acute hospital 2022-05-18 16:15:00 2022-05-18 15:57:36 Outpatient R RAYRAY MERRILL [facility] [id number] General acute hospital 2022-05-18 00:00:00 2022-05-18 00:00:00 Telephone Rayray Merrill [facility] 1.114 350.1.13.10 4.2.7.2.686 [id number] 134 [id number] General acute hospital 2022-05-14 14:00:00 2022-05-14 14:00:00 Outpatient R [facility] [id number] General acute hospital 2022-05-05 11:30:00 2022-05-05 12:35:49 Statement Services Representative Visit Lab, Ang - Db Jamie [facility] 1.84.114 350.1.13.10 4.2.7.2.686 [id number] 353 [id number] General acute hospital 2022-05-05 11:30:00 2022-05-05 11:30:00 Out[facility] [id number] General acute hospital 2022-05-04 16:15:00 2022-05-04 16:53:24 Outpatient R RAYRAY MERRILL [facility] [id number] General acute hospital 2022-05-04 16:15:00 2022-05-04 16:53:24 Routine Visit Rayray Merrill [facility] 1.114 350.1.13.10 4.2.7.2.686 [id number] 134 [id number] General acute hospital 2022-05-04 00:00:00 2022-05-04 00:00:00 Telephone Rayray Merrill [facility] 1.2.840.114 350.1.13.10 4.2.7.2.686 [id number] 134 [id number] General acute hospital 2022-05-03 00:00:00 2022-05-03 00:00:00 Telephone [facility] 1.2.840.114 350.1.13.10 4.2.7.2.686 [id number] 134 [id number] General acute hospital 2022-05-01 01:14:00 2022-05-01 05:14:00 Emergency ANOOP VAN TIMOTHY [facility] [id number] General acute hospital 2022-05-01 01:14:00 2022-05-01 05:14:00 Emergency Anoop Pearson [facility] 1.2.840.114 350.1.13.10 4.2.7.2.686 [id number] General acute hospital 2022-04-30 09:30:00 2022-04-30 09:30:00 Outpatient R [facility] [id number] General acute hospital 2022 00:00:00 2022 00:00:[address] [facility] 1.2.840.114 350.1.13.10 4.2.7.2.686 [id number] 134 [id number] General acute hospital 2022-04-23 09:00:00 2022-04-23 10:19:13 Initial Visit Ramona Thompson [facility] 1.2.840.114 350.1.13.10 4.2.7.2.686 [id number] 134 [id number] General acute hospital 2022-04-23 09:00:00 2022-04-23 10:19:13 Outpatient R RAMONA THOMPSON [facility] [id number] General acute hospital 2022-04-23 00:00:00 2022-04-23 00:00:[address] [facility] 1.2.840.114 350.1.13.10 4.2.7.2.686 [id number] 134 [id number] General acute hospital 2022-04-20 00:00:00 2022-04-20 00:00:00 Orders Only Doctor Unassigned, [place] [facility] 1.2.840.114 350.1.13.10 4.2.7.2.686 [id number] General acute hospital 2022-04-16 00:00:00 2022-04-16 00:00:[address] [facility] 1.2.840.114 350.1.13.10 4.2.7.2.686 [id number] 134 [id number] General acute hospital 2022-04-13 00:00:00 2022-04-13 00:00:00 Case Management Rayray Merrill [facility] 1.2.840.114 350.1.13.10 4.2.7.2.686 [id number] 134 [id number] General acute hospital 2022-04-12 00:00:00 2022-04-12 00:00:00 Telephone Jay Ramona Mike [facility] 1.2.840.114 350.1.13.10 4.2.7.2.686 [id number] 134 [id number] General acute hospital 2022-04-08 11:44:00 2022-04-09 14:55:00 Hospital Encounter Tiffanie Moreau Vien [facility] 1.2.840.114 350.1.13.10 4.2.7.2.686 [id number] [id number] General acute hospital 2022-04-08 11:44:00 2022-04-09 14:55:00 Outpatient X RAMONA THOMPSON [facility] PATT [id number] General acute hospital Results Test Description Test Time Test Comments Results Result Co mments Source [facility] IMMUNE [id number] 04:05:18* Test Item Value Reference Range Interpretation Comme nts RHIG CANDIDATE? (test code = 5188) No- see comment Patient is not a candidate for RhIg- Patient is Rh Positive.Performed at [facility] Laboratory Services - [facility] Blood [address] [address]Fgey Free: [phone] No. [id number] [facility]landsUric Acid [id number] 13:18:12* Test Item Value Reference Range Interpretation Comme [facility] URIC ACID (test code = 0476448826) 5.3 mg/dL 2.9-6.0 Lab Interpretation (test cod e = 31357-7) Normal [facility] Amino Transferase (SGPT)2022-10-30 13:18:12* Test Item Value Reference Range Interpretation Comme [facility] ALTv (test code = 1742-6) 13 U/L 5-35 Lab Interpretation (test cod e = 27126-9) Normal [facility] (Asparate Amino Transfer)2022-10-30 13:18:11* Test Item Value Reference Range Interpretation Comme [facility] AST(SGOT) (test code = 1946600455) 20 U/L 13-40 Lab Interpretation (test cod e = 77719-2) Normal [facility]um Kpqypqgyde6997-25-99 13:17:51* Test Item Value Reference Range Interpretation Comme [facility] CREATININE (test code = 8615864761) 0.33 mg/dL 0.50-1.04 L eGFR (test code = 4098984328) 239.1 mL/min/1.73m2 DUGLAS (test code = DUGLAS) [...] imaging tests). Lab Interpretation (test code = 29668-7) Abnormal [facility]Lactate Tpuqtlhfwcxuy0913-35-85 13:17:31* Test Item Value Reference Range Interpretation Comme [facility] LDH (test code = 8234592086) 119 U/L 120-246 L Lab Interpretation (test cod e = 57229-4) Abnormal [facility] with Rvorfzoxhmnf5922-59-16 13:06:50* Test Item Value Reference Range Interpretation Comme nts WBC (test code = 6690-2) 10.42 See_Comment [Automated [employer]] The system which generated this result transmitted reference range: 4.30 - 11.10 10*3/?L. The reference range was not used to interpret this result as normal/abnormal. RBC (test code = 789-8) 3.25 See_Comment L [Automated [employer]] The system which generated this result transmitted [...] 32.1 g/dL 31.6-35.1 RDW-SD (test code = 84989-2) 40.1 fL 39.0-49.9 RDW-CV (test code = 788-0) 13.9 % 12.0-15.5 PLT (test code = 777-3) 262 See_Comment [Automated messa ge] The system which generated this result transmitted reference range: 166 - 358 10*3/?L. The reference range was not used to interpret this result as normal/abnormal. MPV (test code = 42010-9) 10.2 fL 9.5-12.9 NRBC/100 WBC (test code = 8659306814) 0.0 See_Comment [Automated [employer] ssage] The system which generated this result transmitted reference range: 0.0 - 10.0 /100 WBCs. The reference range was not used to interpret this result as normal/abnormal. NRBC x10^3 (test code = 7376242709) See_Comment [Automated Ablynxa ge] The system which generated this result transmitted reference range: 10*3/?L. The reference range was not used to interpret this result as normal/abnormal. GRAN MAT (NEUT) % (test code = 770-8) 63.8 % IMM GRAN % (test code = 0933946503) 0.90 % LYMPH % (test code = 736-9) 25.0 % MONO % (test code = 5905-5) 9.6 % EOS % (test code = 713-8) 0.4 % BASO % (test code = 706-2) 0.3 % GRAN MAT x10^3(ANC) (test code = 9401930672) 6.65 10*3/uL 1.88-7.09 IMM GRAN x10^3 (test code = 2290018954) 0.09 10*3/uL 0.00-0.06 H LYMPH x10^3 (test code = 731-0) 2.61 10*3/uL 1.32-3.29 MONO x10^3 (test code = 742-7) 1.00 10*3/uL 0.33-0.92 H EOS x10^3 (test code = 711-2) 0.04 10*3/uL 0.03-0.39 BASO x10^3 (test code = 704-7) 0.03 10*3/uL 0.01-0.07 Lab Interpretation (test code = 21240-5) Abnormal [facility] URINALYSIS W/O SPECIFIC [id number] 18:16:00* Test Item Value Reference Range Interpretation [...] [facility] URINALYSIS W/O SPECIFIC [id number] 15:41:00* Test Item Value Reference Range Interpretation [...] [facility] URINALYSIS W/O SPECIFIC [id number] 14:43:00* Test Item Value Reference Range Interpretation [...] [facility] URINALYSIS W/O SPECIFIC [id number] 15:07:00* Test Item Value Reference Range Interpretation [...] [facility] URINALYSIS W/O SPECIFIC [id number] 19:19:00* Test Item Value Reference Range Interpretation [...] [facility] URINALYSIS W/O SPECIFIC [id number] 19:42:00* Test Item Value Reference Range Interpretation [...] = 3257) n/a Negative - Negati ve [facility] W/O SPECIFIC [id number] 21:46:00* Test Item Value Reference Range Interpretation [...] = 3257) N/A Negative - Negati ve [facility] W/O SPECIFIC [id number] 22:31:00* Test Item Value Reference Range Interpretation [...] = 3257) n/a Negative - Negati ve [facility]landsType and Screen - ONCE Gxypcqo5017-16-69 09:06:51* Test Item Value Reference Range Interpretation Comme nts ABO & RH (test code = 20) O Positive Performed at [facility] Laboratory Services - [facility] Blood [address] [address]Hymv Free: [phone] No. [id number] IAT (test code = 1185) Negative Performed at [facility] Laboratory Services - [facility] Blood [address] [place], [place] [id number] Free: [phone] No. [id number] [facility] WITH [id number] 08:14:12* Test Item Value Reference Range Interpretation [...] g/dL 31.6-35.1 H RDW-SD (test code = 90504-1) 39.7 fL 39.0-49.9 RDW-CV (test code = 788-0) 13.4 % 12.0-15.5 PLT (test code = 777-3) 291 See_Comment [Automated messa ge] The system which generated this result transmitted reference range: 166 - 358 10*3/?L. The reference range was not used to interpret this result as normal/abnormal. MPV (test code = 15233-1) 10.0 fL 9.5-12.9 NRBC/100 WBC (test code = 9669524496) 0.0 See_Comment [Automated me ssage] The system which generated this result transmitted reference range: 0.0 - 10.0 /100 WBCs. The reference range was not used to interpret this result as normal/abnormal. NRBC x10^3 (test code = 6952785721) See_Comment [Automated messa ge] The system which generated this result transmitted reference range: 10*3/?L. The reference range was not used to interpret this result as normal/abnormal. GRAN MAT (NEUT) % (test code = 770-8) 60.4 % IMM GRAN % (test code = 1698664283) 0.40 % LYMPH % (test code = 736-9) 30.8 % MONO % (test code = 5905-5) 7.5 % EOS % (test code = 713-8) 0.5 % BASO % (test code = 706-2) 0.4 % GRAN MAT x10^3(ANC) (test code = 5940620405) 7.53 10*3/uL 1.88-7.09 H IMM GRAN x10^3 (test code = 6622108293) 0.05 10*3/uL 0.00-0.06 LYMPH x10^3 (test code = 731-0) 3.84 10*3/uL 1.32-3.29 H MONO x10^3 (test code = 742-7) 0.93 10*3/uL 0.33-0.92 H EOS x10^3 (test code = 711-2) 0.06 10*3/uL 0.03-0.39 BASO x10^3 (test code = 704-7) 0.05 10*3/uL 0.01-0.07 Lab Interpretation (test code = 35190-1) Abnormal [facility] [id number] 08:05:00* Test Item Value Reference Range Interpretation Comme nts POCT PREG (test code = 1605) + On board controls acceptable with C Line (test code = 3574) yes POCT PREG LOT # (test code = 3575) [id number] POCT PREG TEST DATE ( test code = 3576) 06/19/2023 Lab Interpretation (test cod e = 03727-1) Normal [facility] URINALYSIS W/O SPECIFIC [id number] 15:54:00* Test Item Value Reference Range Interpretation [...] = 3257) Negative Negative - Negati ve [facility]83065[facility] (ALB,T.PRO,BILI T,BU/BC,ALT,AST,ALK PHOS)2022-04-08 18:47:59* Test Item Value Reference Range Interpretation Comme nts TOTAL BILI (test code = 3040080596) 0.7 mg/dL 0.1-1.1 BILI UNCON (test code = 4007403818) 0.4 mg/dL 0.1-1.1 BILI CONJ (test code = 0081550872) 0.0 mg/dL 0.0-0.3 T PROTEIN (test code = 6124524044) 8.3 g/dL 6.3-8.2 H ALBUMIN (test code = 9737710556) 5.1 g/dL 3.5-5.0 H ALK PHOS (test code = 8394351668) 96 U/L 34-122 ALTv (test code = 1742-6) 47 U/L 5-35 H AST(SGOT) (test code = 3043507044) 46 U/L 13-40 H Lab Interpretation (test cod e = 88048-9) Abnormal [facility] 18:47:59* Test Item Value Reference Range Interpretation Comme nts LIPASE (test code = 4382048381) 65 U/L 0-220 Lab Interpretation (test cod e = 99321-8) Normal [facility]20[facility]-01-19 18:47:39* Test Item Value Reference Range Interpretation Comme nts MAGNESIUM (test code = 4523366490) 2.1 mg/dL 1.7-2.4 Lab Interpretation (test cod e = 85120-3) Normal [facility] METABOLIC PANEL (NA, K, CL, CO2, GLUCOSE, BUN, CREATININE, CA)2022-04-08 18:26:55* Test Item Value Reference Range Interpretation Comme nts NA (test code = 6560078098) 136 mmol/L 135-145 K (test code = 0688675592) 3.5 mmol/L 3.5-5.0 CL (test code = 2855141198) 103 mmol/L 98-108 CO2 TOTAL (test code = 8936932395) 19 mmol/L 23-31 L AGAP (test code = 1943979751) 2-16 BUN (test code = 6048307783) 10 mg/dL 7-23 GLUCOSE (test code = 5946645837) 101 mg/dL 70-110 CREATININE (test code = 3288316321) 0.54 mg/dL 0.50-1.04 CALCIUM (test code = 7402881456) 9.7 mg/dL 8.6-10.6 eGFR (test code = 4602582706) mL/min/1.73m2 DUGLAS (test code = DUGLAS) Association [...] imaging tests). Lab Interpretation (test code = 74070-8) Abnormal [facility] WITH CMEW6311-36-86 18:18:14* Test Item Value Reference Range Interpretation Comme nts WBC (test code = 6690-2) See_Comment [Automated Ablynxa ge] The system which generated this result transmitted reference range: 4.30 - 11.10 10*3/?L. The reference range was not used to interpret this result as normal/abnormal. RBC (test code = 789-8) See_Comment [Automated Ablynxa ge] The system which generated this result [...] g/dL 31.6-35.1 H RDW-SD (test code = 16110-3) 38.8 fL 39.0-49.9 L RDW-CV (test code = 788-0) 13.4 % 12.0-15.5 PLT (test code = 777-3) See_Comment [Automated Ablynxa ge] The system which generated this result transmitted reference range: 166 - 358 10*3/?L. The reference range was not used to interpret this result as normal/abnormal. MPV (test code = 45068-5) 10.8 fL 9.5-12.9 NRBC/100 WBC (test code = 2382329510) See_Comment [Automated BodBot ssage] The system which generated this result transmitted reference range: 0.0 - 10.0 /100 WBCs. The reference range was not used to interpret this result as normal/abnormal. NRBC x10^3 (test code = 1254494785) See_Comment [Automated messa ge] The system which generated this result transmitted reference range: 10*3/?L. The reference range was not used to interpret this result as normal/abnormal. GRAN MAT (NEUT) % (test code = 770-8) 74.4 % IMM GRAN % (test code = 6802894208) 0.30 % LYMPH % (test code = 736-9) 17.7 % MONO % (test code = 5905-5) 6.9 % EOS % (test code = 713-8) 0.3 % BASO % (test code = 706-2) 0.4 % GRAN MAT x10^3(ANC) (test code = 6600913116) 7.89 10*3/uL 1.88-7.09 H IMM GRAN x10^3 (test code = 1750821375) 0.03 10*3/uL 0.00-0.06 LYMPH x10^3 (test code = 731-0) 1.88 10*3/uL 1.32-3.29 MONO x10^3 (test code = 742-7) 0.73 10*3/uL 0.33-0.92 EOS x10^3 (test code = 711-2) 0.03 10*3/uL 0.03-0.39 BASO x10^3 (test code = 704-7) 0.04 10*3/uL 0.01-0.07 Lab Interpretation (test code = 26660-5) Abnormal [facility] History and Physical Notes Date/Time Note Provider Source 2022-11-01 18:42:53 4564-59-75Q45:42:53 TRIAGE HISTORY & PHYSICALIDENTIFYING DATARoselyn García is 27 year old, /White, 36w6d, female with ADAN 11/23/2022, by Last Menstrual Period. : 1995MRN: [id number] Care Physician: PATIENT DOES NOT HAVE A [...] the morning. 30 capsule 1 Not Taking LAN47-RM-pb7-xto-okc-lmsd oil ( GUMMY) 400 mcg-35 mg -25 [...] down to 90s noted. Even though BPP 8/8 today, given decreased FM and prolonged decel, will admit patient for delivery due to non-reassuring status near term. Spoke with Dr. Andersen, who agreed with plan of care. Induction- will start pitocin per protocol- Cephalic presentation confirmed- GBS neg- EFW 2955 grams on 11/01/22Anemia- hemoglobin 8.4 on 10/30/22- T&C x [address] Thompson, please see OB Summary for more detailsRamona Thompson MD 11/01/2022 6:57 PM 37786-4Uvluacg and physical ifmeCS1709-94-89K75:59:28History and physical noteTXT1.2.840.880730.1.13.104.2.7.2 .596117|[id number] for patient mzwh19995-5Tvkavwv and physical noteLNUT[address] ZurpGq[id number] ELYWIOPICXNNIJQPDOLPDN2420-73-10O40: 59:281.2.840.263851.1.72.3.15|1.2.84 0.117375.1.13.104.2.7.2.727879_18740 23565 [facility] 2022-10-30 09:20:04 3268-89-91U12:20:04 ANTEPARTUM HISTORY & PHYSICALIDENTIFYING DATARoselyn García is 27 year old, /White, 36w4d, female with ADAN 11/23/2022, by Last Menstrual Period. : 1995MRN: [id number] Care Physician: PATIENT DOES NOT HAVE A PCPHospital Day: 2CHIEF COMPLAINTcrampsHISTORY OF PRESENT RXNYPBI43 year old 36w4d presents with contractions overnight. [...] the morning. 30 capsule 1 Not Taking AZZ07-NI-qw2-lea-lvt-hxsp oil ( GUMMY) 400 mcg-35 mg -25 [...] [place] the [place] [address]-0Iekgcaf and physical aiieAP2789-54-63L07:31:05History and physical noteTXT1.2.840.280419.1.13.104.2.7.2 .004503|0631455347JAHotsgnofx for patient aiux46344-3Ujnjqes and physical noteLNOG-OBSTETRICS & GYNECOLOGY STAFFOG-OBSTETRICS & GYNECOLOGY STAFF[id number] YZFVTGIXDUXYXJRYMAMKEQ4155-52-00G38: 31:051.2.840.067842.1.72.3.15|1.2.84 0.382768.1.13.104.2.7.2.727879_18729 10043 OG-OBSTETRICS & GYNECOLOGY STAFF [facility] 2022-10-27 17:52:31 7364-96-07J95:52:31 TRIAGE HISTORY & PHYSICALIDENTIFYING DATARoselyn García is 27 year old, /White, 36w1d, female with ADAN 11/23/2022, by Last Menstrual Period. : 1995MRN: [id number] Care Physician: PATIENT DOES NOT HAVE A [...] the morning. 30 capsule 1 Not Taking WEA93-EG-wy5-gdz-gnb-pboa oil ( GUMMY) 400 mcg-35 mg -25 [...] Strong labor precautions and [place] [address]-2Oxjtsju and physical igogOI8237-59-76L83:59:08History and physical noteTXT1.2.840.749325.1.13.104.2.7.2 .226966|5867565724DMTszbhayfg for patient jmfn76770-6Fnbjtdh and physical noteLNUT[address] UzfvAg[id number] EMDIXCNWMYRTROLROWMQOL7769-49-51P98: 59:081.2.840.237647.1.72.3.15|1.2.84 0.655750.1.13.104.2.7.2.727879_18706 53515 [facility] 2022-10-05 18:22:49 1217-91-64A44:22:49 TRIAGE HISTORY & PHYSICALIDENTIFYING DATARoselyn García is 27 year old, /White, 33w0d, female with ADAN 11/23/2022, by Last Menstrual Period. : 1995MRN: [id number] Care Physician: PATIENT DOES NOT HAVE A [...] the morning. 30 capsule 1 Not Taking HPO67-WJ-es0-okx-pdh-szlt oil ( GUMMY) 400 mcg-35 mg -25 [...] ?C (99.3 ?F)] Temp source: Oral (10/05 164)Pulse: [66-112] Resp: [16-18] SpO2: [90 %-100 %] Height: [154.9 cm (5' 0.98")-154.9 cm (5' 1")] Weight: [85.5 kg (188 lb 9.6 oz)-187.6 kg (413 lb 9.3 oz)] BMI (calculated): [35.64-78.19] PHYSICAL EXAMINATIONSGen: alert and oriented, well appearing, no distressCV: RRR, normal S1/S2, no m/r/gResp: normal work of breathing, lungs CTABAbd: gravid, soft, NTTPExt: no calf tenderness or edemaGU: SVE cl/50/-3 by STORE DETECTIVE OF LABORATORY, PATHOLOGY, AND RADIOLOGY DATALab results:Type [...] Thompson, please see OB Summary [place] [address]-2Qzmxqii and physical ihslNY2194-72-87W01:34:48History and physical noteTXT1.2.840.624734.1.13.104.2.7.2 .566441|7392077731TEBaxtodkbz for patient [id number] CMXCJOYOHWVIRKBKHPGVNI6298-42-26C30: 34:481.2.840.749958.1.72.3.15|1.2.84 0.534937.1.13.104.2.7.2.727879_18531 48088 [facility] Procedure Notes Date/Time Note Provider Source 2022-11-02 01:21:21 3066-95-27O25:21:21Associated Order(s): Central Neuraxial Block Central Neuraxial Block Date/Time: 11/02/2022 12:40 AMPerformed by: Ruby Clevelnad DOAuthorized by: Ruby Cleveland DO Patient Location: [...] Technique: ROLANDO saline Guidance with: landmark technique}Epidural/Spinal Gallaway and/or Catheter: Needle Insertion Depth: 7 Catheter [...] paresthesia, motor and sensory grossly intact BLE. 17476-6Frphptpjnpvmwe procedure onopZK5514-59-25D81:28:44Anesthe siology procedure noteTXT1.2.840.043959.1.13.104.2 .7.2.031596|[id number] e for patient nozu77284-2Hjoalntt operation noteLNAN-ANESTHESIOLOGY ANESTHESIOLOGISTAN-ANESTHESIOLOG Y ANESTHESIOLOGIST[address]TXTX[address] 5008DBCHHXMSUEQNHIVAOKDGUW9397-1 815T01:28:441.2.840.160104.1.72 .3.15|1.2.840.563537.1.13.104.2. 7.2.727879_[id number] AN-ANESTHESIOLOGY ANESTHESIOLOGIST [facility] Progress Notes Date/Time Note Provider Source 2022-10-15 09:15:00 4482-27-65U58:15:00F ormatting of this note might be different [...] medication.-Had ultrasound done today, report pending.-Daily kick msznmj-Neoiqq-fd in 2 weeks for unless clinically indicated otherwise 62819-2Hshapgct lkzxHZ1090-12-22T72:03:19Progress noteTXT1.2.840.221796.1.13.104.2.7.2.30275 9|[id number] for patient care[id number] PAFRJNLQRIQIJMDU1006-11-90P72:03:191.2.840 .766492.1.72.3.15|1.2.840.329468.1.13.104. 2.7.2.727879_[id number] [facility] 2022-10-05 09:45:00 6721-07-92T65:45:00F ormatting of this note might be different from the original.Age: 27 year oldGA: 33w0d Kim García is a 27 y.o. female who presented to clinic for evaluation after a recent fall at 33w0d gestation. Ms. García is a patient of Dr. Thompson.High risk in third mlfzivvsx35 weeks gestation of pregnancy3. Traumatic injury during [...] note aboveRayray Merrill NP 10/05/2022 10:08 AM 85965-2Wxzqcnyz ubnlYH5898-57-45I22:13:54Progress noteTXT1.2.840.183667.1.13.104.2.7.2.92855 9|2385448253VMOboiaxiio for patient [address] IwsuNucievxhjZggeqzyurRNFC2821580849XLBIZI MGLXBFGXONQTMUNE1651-85-79V36:13:541.2.840 .846405.1.72.3.15|1.2.840.521114.1.13.104. 2.7.2.727879_[id number] [facility] Notes Date/Time Note Provider Source 2022-11-07 11:48:54 3087-34-21Q71:48:54 Addendum created 11/07/22 1148 by Ever Hines MD Clinical Note Signed 20135-0Xyxwsgww VjqgyxhpUA8204-28-62A68:48:54Addend um DocumentTXT1.2.840.786100.1.13.104. 2.7.2.558259|[id number] for patient xiua00016-0VgsnGSFMETKCJX[address]vdG[id number] 7SVCPDFNXEPQBFKXBGAJOSX8286-86-03U9 1:48:541.2.840.700647.1.72.3.15|1.2 .840.186687.1.13.104.2.7.2.727879_1 [id number] [facility] 2022-11-07 11:47:57 0770-33-53M50:47:57 Patient: Roselyn García Procedure Summary Date: 11/02/22 [...] to C/S. See C/S encounter for more. 51157-5Nusueagtppgtky Postoperative evaluation and management hapuEK0028-09-47M58:48:45Anesthesio logy Postoperative evaluation and management noteTXT1.2.840.806726.1.13.104.2.7. 2.542128|1735268131WMInmhhodip for patient sbcu59586-6Ydztqruc operation noteLNAN-ANESTHESIOLOGY ANESTHESIOLOGISTAN-ANESTHESIOLOGY ANESTHESIOLOGIST[id number] 6SXAHVEELLJEUDATJHNUJWH7412-59-81T0 1:48:451.2.840.568700.1.72.3.15|1.2 .840.379767.1.13.104.2.7.2.727879_1 [id number] AN-ANESTHESIOLOGY ANESTHESIOLOGIST [facility] 2022-11-04 11:36:18 5030-83-52C17:36:18 Problem: Falls, Risk ofGoal: Absence of fallsOutcome: Resolved Problem: Complications of hemorrhage (risk or actual)Goal: Absence of active bleedingOutcome: ResolvedGoal: Absence of complicationsOutcome: Resolved Problem: PainGoal: Control of pain at or below patient's documented comfort goalOutcome: ResolvedGoal: Reduction in pain sensationOutcome: Resolved Problem: Infection RiskGoal: Absence of infectionOutcome: Resolved 83016-3Juag of care ccniKB7691-30-95T39:36:24Plan of care noteTXT1.2.840.857260.1.13.104.2.7. 2.743729|7878843940OLJzawneygq for patient ulvv62080-1RvbvZW307488146Ehivbz T Girod RNUT[id number] 8MIPSYRJJBRHVHRFRBMEDYM1021-23-92H8 1:36:241.2.840.921309.1.72.3.15|1.2 .840.118675.1.13.104.2.7.2.727879_1 [id number] Ping Lyons RN [facility] 2022-11-04 06:48:53 3193-58-57D40:48:53 Problem: Falls, Risk ofGoal: Absence of fallsOutcome: Progressing as expected Problem: Complications of hemorrhage (risk or actual)Goal: Absence of active bleedingOutcome: Progressing as expected Problem: PainGoal: Control of pain at or below patient's documented comfort goalOutcome: Progressing as expected Problem: Infection RiskGoal: Absence of infectionOutcome: Progressing as expected 54344-6Mizc of care afqiWE4053-97-65T78:48:59Plan of care noteTXT1.2.840.173106.1.13.104.2.7. 2.551554|1263681416DECremoitme for patient oeyn03582-8WaphQKBHTKOMZY[address] TmvlZoqxzhpuaPyuiyowphXFNM227013213 2OSRQINZDEMNXWTEXUGEKFM5934-05-88G4 6:48:591.2.840.619999.1.72.3.15|1.2 .840.504099.1.13.104.2.7.2.727879_1 [id number] [facility] 2022-11-03 13:09:18 4219-83-39R45:09:18Summary: Breast Care for non- mothers Images from [...] primary care provider. Brendan FONG, RN, IBCLC 04440-5Rurbsbfixh WwjpLS6438-07-79R03:10:07Obstetrics NoteTXT1.2.840.238000.1.13.104.2.7. 2.094166|2792441552LXSzccbnajp for patient kuyg18797-5UktmRB581093622Utwrgb K Randolph RN[address] WqdkFntphdxlvUgozjpgxrQYBX325670949 3VSYDVUGXOEKRHZQXGXNVQH0627-10-06W9 3:10:071.2.840.595721.1.72.3.15|1.2 .840.650492.1.13.104.2.7.2.727879_1 [id number] Brendan Sim RN [facility] 2022-11-03 07:41:03 9066-01-79W72:41:03 Problem: Falls, Risk ofGoal: Absence of fallsOutcome: Progressing as expected Problem: Complications of hemorrhage (risk or actual)Goal: Absence of active bleedingOutcome: Progressing as expectedGoal: Absence of complicationsOutcome: Progressing as expected Problem: PainGoal: Control of pain at or below patient's documented comfort goalOutcome: Progressing as expectedGoal: Reduction in pain sensationOutcome: Progressing as expected Problem: Infection RiskGoal: Absence of infectionOutcome: Progressing as expected 99111-5Nhaj of care cmxaWE8323-94-85C69:41:06Plan of care noteTXT1.2.840.540454.1.13.104.2.7. 2.345316|4122852850SGUckrcwgfv for patient opuf41100-8MoeyGG326730289Uayptk E Yarbrough RN[id number] 2VODBCHGEYOQZWQMFOPIENY3041-94-07R2 7:41:061.2.840.773222.1.72.3.15|1.2 .840.758159.1.13.104.2.7.2.727879_1 [id number] Aishwarya Merchant [facility] 2022-11-02 21:17:51 0222-76-29W13:17:51 Addendum created 11/02/222116 by Ever Hines MD Intraprocedure Event edited 53732-1Qzywmqls IifvjzwwTO4278-05-17O54:17:51Addend um DocumentTXT1.2.840.988688.1.13.104. 2.7.2.146969|[id number] for patient qsge45095-8PajeSDMY-YMXIZNVVFFGJOF ANESTHESIOLOGISTSUMMIT HEALTHCARE REGIONAL MEDICAL CENTERANESTHESIOLOGY ANESTHESIOLOGIST[id number] 5AMFWUFHMJJHWCLVBGBUROX3977-17-11W2 1:17:511.2.840.098956.1.72.3.15|1.2 .840.260629.1.13.104.2.7.2.727879_1 [id number] AN-ANESTHESIOLOGY ANESTHESIOLOGIST [facility] 2022-11-02 21:16:50 4742-09-23A40:16:50 Addendum created 11/02/222115 by Ever Hines MD Intraprocedure Event edited 47522-7Cvobcjjb JnvkakmlGJ0451-80-96R76:16:50Addend um DocumentTXT1.2.840.212957.1.13.104. 2.7.2.563861|[id number] for patient tnes25408-1IhgqUMID-SMSTCURIUDVSIV ANESTHESIOLOGISTSUMMIT HEALTHCARE REGIONAL MEDICAL CENTERANESTHESIBAT[facility] ANESTHESIOLOGIST[id number] 1WMIQINEQYCANFJAYDYVKKZ3832-27-19M5 1:16:501.2.840.531830.1.72.3.15|1.2 .840.873434.1.13.104.2.7.2.727879_1 [id number] AN-ANESTHESIOLOGY ANESTHESIOLOGIST [facility] 2022-11-02 20:29:07 5177-36-01O67:29:07 Problem: Intrapartum process (including labor pain)Goal: Absence [...] RiskGoal: Absence of infectionOutcome: Progressing as expected 76172-1Crwp of care gfxdIU0250-94-52O73:29:14Plan of care noteTXT1.2.840.738660.1.13.104.2.7. 2.584208|4843556973SCXclpfkikj for patient odec45847-3ZimjFT937074905Lgxuuz L Soell RN[id number] 0IUNVKYCPIWDAQVQPXKSQRA0311-20-64S8 0:29:141.2.840.302021.1.72.3.15|1.2 .840.560808.1.13.104.2.7.2.727879_1 [id number] Debby Shultz RN [facility] 2022-11-02 20:27:55 7594-46-89V83:27:55 Problem: Intrapartum process (including labor pain)Goal: Absence of or reduction of complications of laborOutcome: ResolvedGoal: Able to cope with painOutcome: ResolvedGoal: Adequate to move to next level of careOutcome: ResolvedGoal: Reduction in pain sensationOutcome: Resolved 34931-7Urcj of care rmmzRT3186-13-37Z95:27:58Plan of care noteTXT1.2.840.790396.1.13.104.2.7. 2.637039|1267497983YSYhdlrxewt for patient ttfr59979-2CupcNQNPQRXEDX[address] KroeZpxxszvupArsgthqqsXPHJ625250491 4SSEAJRUDPRKCCMTVUFKFIL0526-21-13K8 0:27:581.2.840.409207.1.72.3.15|1.2 .840.218619.1.13.104.2.7.2.727879_1 [id number] [facility] 2022-11-02 19:16:21 3171-14-26Q23:16:21 Delivery Date: 11/02/2022 Delivery Time: 6:36 PM DELIVERY BY SECTIONDate of Service: : 11/02/2022 at 6:36 PM Admitted for: induction at 36 wks due to non-reassuring FHT, Primary Lower uterine tranverse section with no extension, no BTL, Pfannenstiel, Closed with suture, EBL 650 cc, No complications, Findings: NoneDelivery Summary Sex: male Weight: 2950 g 1 Minute [...] by lateral traction from the surgeon's and certified surgical first assistant's hand.Delivery A bladder flap was developed by grasping with Georgian forcep and enter with Metzenbaun scissor. Then [...] aid of fundal pressure applied by the assistant property manager surgeon . The body was delivered with [...] to pathology.Ramona Thompson MD 11/02/2022 7:24 PM 88069-5Brcyp and delivery summary rmrmIH7837-53-75L82:44:01Labor and delivery summary noteTXT1.2.840.155766.1.13.104.2.7. 2.541802|[id number] for patient iryq79130-6RjtvYTGJLICCOE[address] QqqkKrofgmvapIuhvurnslPAVW085703484 6TRZOTDYDJOTJZSQUTVLHFY9928-20-22R5 8:44:011.2.840.662172.1.72.3.15|1.2 .840.178135.1.13.104.2.7.2.727879_1 [id number] [facility] 2022-11-01 21:56:29 2663-70-21H57:56:29 Name/ MRN / Age / Gender:Roselyn García, [age] year old female BMI:Estimated body mass index [...] No surgeons listed *Procedure: LABOR CONSULTOR Location: [facility] OUT OF OR - OR LOCATION [...] to surgery. Hold on DOS. Phentermine: Alert [facility] anesthesiologistSGLT2 Inhibitors: "gliflozins" to be held [...] during pre-op evaluation: General, Epidural and Spinal 22452-7Hkgwtzuyauanie Preoperative evaluation and management rezbEA4386-39-08G64:00:12Anesthesio logy Preoperative evaluation and management noteTXT1.2.840.037540.1.13.104.2.7. 2.936024|7177339728CVFzqgkusih for patient nxsr44882-1Okelgtoe operation noteLNUT[address] Vwyo[id number] 0YWTMAUVOPBBBWJSZNROSNX2578-20-97V7 2:00:121.2.840.697353.1.72.3.15|1.2 .840.365433.1.13.104.2.7.2.727879_1 [id number] [facility] 2022-11-01 19:30:06 6316-78-18E69:30:06 Arrived on [facility] L&D unit:Arrived to [facility] Date & Time: 11/01/2022 1:07 PMOncall [...] the morning. 30 capsule 1 Not Taking RQP96-HN-km1-ccn-las-vsrl oil ( GUMMY) 400 mcg-35 mg -25 [...] No REVIEW OF SYSTEMS:See Nurses Flowsheets Specimens Obtained:ABELARDO, WET PREPUrine dip: see flowsheet SVE:/floatingOBIX EFM Strip:Fht's Cat I strip, noted decel [...] to triage on 11/01/22 at 1411. PLAN:1. Abelardo test, US with SHRUTHI, BPP2. Induction due to decel noted 15519-1Yjxej ObnaWP6098-72-89B73:38:25Nurse NoteTXT1.2.840.759543.1.13.104.2.7. 2.340908|3398317669NMLrxyfhbii for patient ymex24777-5SyxrGEDHURXCFM[id number] 5UMDWDAURVEPSXSVHNYGSOF9562-42-68A9 9:38:251.2.840.086025.1.72.3.15|1.2 .840.010569.1.13.104.2.7.2.727879_1 [id number] [facility] 2022-11-01 09:40:42 0000-01-81E24:40:42 Spoke with patient,states that she leaked a [...] the hospital.Shandra Rodriguez RN 11/01/2022 9:52 AM 74899-8Hgpcaqdvy encounter LwwkZN8142-62-03D91:53:41Telephone encounter NoteTXT1.2.840.517212.1.13.104.2.7. 2.198338|[id number] for patient rfue75601-2LfmzIKDCVFPTVE[id number] 6CCTFUCOMHLNAFKBBUVTVVS8127-15-47K2 9:53:411.2.840.763845.1.72.3.15|1.2 .840.119508.1.13.104.2.7.2.727879_1 [id number] [facility] 2022-11-01 09:24:49 3025-01-97I15:24:49 Patient is calling she states she is 36 wks 6 days . She states she started leaking fluid yesterday at 630 pm. She states it was clear. She is having irregular contractions but no other symptoms. She states she went in on Tuesday to labor and delivery and she did not want to go back unless necessary, nurse notified. 68054-4Pppapwhcn encounter HpnqHQ9933-74-82O63:29:10Telephone encounter NoteTXT1.2.840.091141.1.13.104.2.7. 2.857684|[id number] for patient [id number] S Herivelisse[address] Xb[id number] 7VIXYSYLIHUGSAQCBYCRVJK7702-08-48F2 9:29:101.2.840.596559.1.72.3.15|1.2 .840.647192.1.13.104.2.7.2.727879_1 [id number] Angela Gale Moises [facility] 2022-10-29 22:58:53 6521-66-88D04:58:53 Pt reports contractions more consistent since 7:30pm. Pt stated she is , 36w3d. Patient of Dr. Thompson. Report to GENE García Pt transported to L&D via . 40029-6Wirbqihtk department DqzmAT1459-02-37I09:00:38Emergen department NoteTXT1.2.840.540032.1.13.104.2.7. 2.469614|[id number] for patient fbjn51899-6EjpiCS727669253Fqejcv D Roman RN[id number] 3UQPKWFMDJXNUJPWOTZGODP8391-05-43Z4 3:00:381.2.840.916320.1.72.3.15|1.2 .840.474739.1.13.104.2.7.2.727879_1 [id number] Alix Rick RN [facility] 2022-10-29 12:45:00 2012-49-53S50:45:00 Age: 27 year oldGA: 36w3d -Anxiety: LEEANN-7 [...] given- [place] 1 [place] [address]-8Oqbujmll bhluDQ3278-92-30A80:34:28Progress noteTXT1.2.840.296972.1.13.104.2.7. 2.713605|[id number] for patient wzym17663-0NatnEQCQSMXSHB[id number] 0SKTUNMSQJFREOAEXGOYXTP1790-61-59F9 3:34:281.2.840.442838.1.72.3.15|1.2 .840.868774.1.13.104.2.7.2.727879_1 [id number] [facility] 2022-10-27 11:45:28 2294-51-69Y74:45:28 Spoke with patient. Patient states she has been gage every 5-10 since 7 AM. Patient states contractions are getting worse. Patient denies loss of fluids. Patient states "baby has not moved as much". Patient advised to be seen in labor and delivery. Patient verbalized understanding. Report called to Aide in L&D. Benny Og RN 10/27/2022 11:47 AM 30247-3Eognsfoha encounter DnuvKX6866-42-15O91:47:17Telephone encounter NoteTXT1.2.840.729359.1.13.104.2.7. 2.076194|[id number] for patient [id number] Collins [id number] 1NSENRAPMTNOQBTJTNBMDJB8053-65-99J2 1:47:171.2.840.304230.1.72.3.15|1.2 .840.435653.1.13.104.2.7.2.727879_1 [id number] Benny Og RN [facility] 2022-10-27 11:29:43 7108-88-46C03:29:43 Pt calling to notify clinic she on her way to L&D due to contractions or should she go into [place] office 62483-7Rxsnpwisy encounter EzzxQN4736-87-11A32:31:33Telephone encounter NoteTXT1.2.840.616696.1.13.104.2.7. 2.654150|[id number] for patient piax42659-7VnwtOF681122806Rypqg [id number] 7FKGYWUHSSQZYKMPAEVTZKQ6946-33-53A4 1:31:331.2.840.545099.1.72.3.15|1.2 .840.001150.1.13.104.2.7.2.727879_1 [id number] Lizette Cardenas [facility] 2022-10-25 11:11:14 9341-04-73C88:11:14 Pt stated that she is having cx 10 minutes apart. Getting stronger. And lower back pain. Advised pt to go to L&D to be evaluated. Pt verbalized understanding. Called L&D. Report given to Christy. Verbalized understanding. SHEA MAHMOOD RN 10/25/2022 11:13 AM 32905-5Biupsxcas encounter HayaAT7796-00-09B92:17:21Telephone encounter NoteTXT1.2.840.430639.1.13.104.2.7. 2.842384|[id number] for patient [id number] G Cervantes [id number] 2AJOILUYXJMSEANPPQCFQWM1338-70-03E8 1:17:211.2.840.991757.1.72.3.15|1.2 .840.330773.1.13.104.2.7.2.727879_1 [id number] Shea Mahmood RN [facility] 2022-10-25 10:47:39 2487-45-02Z05:47:39 Patient is calling stating she is gage, she is 36 weeks, she is asking should she come into the clinic or go straight to the hospital, she states when she goes to the hospital they tell her she needs to go to the clinic. Call [phone]. 53163-7Zpfghluvc encounter UttvMR9002-27-51L39:49:37Telephone encounter NoteTXT1.2.840.435537.1.13.104.2.7. 2.057688|[id number] for patient [id number] M Mosley[address] Vo[id number] 4KDVBTWPIQARQISQCHHEPIB3151-63-14N5 0:49:371.2.840.503515.1.72.3.15|1.2 .840.804083.1.13.104.2.7.2.727879_1 [id number] Farideh Donovan [facility] 2022-10-22 10:00:00 9355-18-93I32:00:00 Age: 27 year oldGA: 35w3d Vaginal spotting-Was [...] [place] 2 [place] [address]-2Yrrhjmxj nlzrEF8119-37-21O01:13:25Progress noteTXT1.2.840.210270.1.13.104.2.7. 2.059799|[id number] for patient yoyq77461-2XmdiAUSFCAVYKM[id number] 1WZFUWKVFXDYWZRYGPLUKMV7802-68-56N7 1:13:251.2.840.827827.1.72.3.15|1.2 .840.121415.1.13.104.2.7.2.727879_1 [id number] [facility] 2022-10-18 16:50:50 8666-56-32J11:50:50 27 Y/O G1 P 4024 at 34+6 [...] indicated otherwise. Ramona Thompson MD 10/18/2022 5:55 AL11577-7Bxtjo [id number], Vien Cam1.2.840.581824.1.13.104.2.7.2.83 2141GinQwshPjeGM1575-61-70I09:55:49 Nurse NoteTXT1.2.840.120424.1.13.104.2.7. 2.449760|[id number] for patient [id number] L Soell RN[address] Zq[id number] 1BZUPKHUVADADEULOJVHVXP6230-44-01N9 7:55:491.2.840.444192.1.72.3.15|1.2 .840.548883.1.13.104.2.7.2.727879_1 [id number] Debby Shultz RN [facility] 2022-10-18 08:43:27 6679-75-05Z05:43:27 Report called to L&D, given to Susi.Shandra Rodriguez RN 10/18/2022 8:43 AM 51978-2Glhkcsbru encounter VwbzEV3209-56-29D18:44:10Telephone encounter NoteTXT1.2.840.236664.1.13.104.2.7. 2.144273|[id number] for patient ftfd92862-9PfzhXODIMGBNSJ[id number] 7VWIWIXMSTLJNWLLHLXKCTG5706-47-93D2 8:44:101.2.840.814824.1.72.3.15|1.2 .840.824203.1.13.104.2.7.2.727879_1 [id number] [facility] 2022-10-18 08:04:30 5895-22-08J75:04:30 Spoke with patient, states that she has been having cramping onset last night, had spotting on Tuesday with wiping, none since. Cramping continuous about 18-20 minutes apart. Denies having any other symptoms. Good movement. Per Dr. Thompson patient to go to L&D for evaluation. Patient verbalized understanding.Shandra Rodriguez RN 10/18/2022 8:41 AM 71532-3Uxqjhgxyi encounter GipzAT0135-62-06K24:44:10Telephone encounter NoteTXT1.2.840.711113.1.13.104.2.7. 2.741673|[id number] for patient ncxq04913-5IltqCXODTECTWO02 [id number] 3ZGWGBVLTNADSSRCKSYFCPF5405-34-34W0 8:44:101.2.840.735751.1.72.3.15|1.2 .840.433552.1.13.104.2.7.2.727879_1 [id number] [facility] 2022-10-18 07:54:08 4393-33-45U73:54:08 35 WEEKS . OVER WEEKEND PATIENT WAS SPOTTING AND IT STOPPED TODAY. SHE STARTING CRAMPING YESTERDAY AND STILL CRAMPING TODAY. TRANSFER CALL TO TRIAGE NURSE. 99861-7Rvymhykaf encounter VrkqCW0814-72-63U39:56:49Telephone encounter NoteTXT1.2.840.982623.1.13.104.2.7. 2.537674|[id number] for patient [id number] N Wilson[address] Wx[id number] 4KXDGROHGUNIQPVKIWKMATJ6631-00-95Y4 7:56:491.2.840.339399.1.72.3.15|1.2 .840.142409.1.13.104.2.7.2.727879_1 [id number] Meri Willams [facility] 2022-10-04 12:19:11 1378-42-37F40:19:11 Patient rescheduled 1hr GTT test for tomorrow [...] concerns. Shandra Rodriguez RN 10/04/2022 12:22 PM 73200-7Fpdlnhxlw encounter ArklCB7113-39-81Z09:22:55Telephone encounter NoteTXT1.2.840.375381.1.13.104.2.7. 2.834030|[id number] for patient care[id number] 6DRDQGTRAZZBIKAVCMOPBHC6783-18-45A5 2:22:551.2.840.787172.1.72.3.15|1.2 .840.234454.1.13.104.2.7.2.727879_1 [id number] [facility] 2022-10-04 11:12:15 9472-68-13F08:12:15 Pt would like to talk to nurse in regards to her glucose appointment today. Pt states yesterday also she called labor an delivery at the [facility] stating she fell out of the shower but just wanted to inform DR THOMPSON. Pt states she is okay. 27620-9Wumcuoorl encounter QytwYJ8981-59-43C47:15:57Telephone encounter NoteTXT1.2.840.762721.1.13.104.2.7. 2.968672|[id number] for patient [id number] J Barnshaw[id number] 0GEYSYYVHSDCMLLYDYLVCXW8178-23-94X6 1:15:571.2.840.406843.1.72.3.15|1.2 .840.597831.1.13.104.2.7.2.727879_1 [id number] Marissa Tothtami [facility]
[2023-09-16 23:32] LABS: Absolute Eosinophils 0.1 K/uL (0-0.5); Absolute Lymphocytes (CBC) 1.9 K/uL (0.7-4.9); Absolute Monocytes 0.5 K/uL (0.1-1.3); Absolute Neutrophil 4.9 K/uL (1.8-8.0); Basophils % 0.5 % (0-1.3); Eosinophils % 1.3 % (0-4.4); Hematocrit 34.8 % (36.0-45.0); Hemoglobin 11.3 g/dL (12.0-15.0); Lymphocytes % 26.1 % (15.3-44.8); MCH 25.4 pg (27.0-35.0); MCHC 32.6 g/dL (32.0-36.0); MPV 8.7 fL (7.6-11.3); Monocytes % 6.4 % (3.3-12.3); Neutrophils % 65.7 % (41.7-73.7); Nucleated Red Blood Cells % 0.1 % (0-0); Platelets 294 thou/uL (152-406); RBC Red Blood Cell Count 4.46 M/uL (3.86-4.86); Red Cell Distribution Width 16.4 % (12.1-15.2)
[2023-09-16 23:34] LABS: PT Prothrombin Time 11.9 SECONDS (9.4-12.5); Protime INR 1.08
[2023-09-16] MEDS ORDERED: ONDANSETRON 4 MG/2 ML VIAL ONE (23:43)
[2023-09-16 23:53] LABS: ALT/SGPT 659 U/L (13-56); AST/SGOT 680 U/L (15-37); Albumin/Globulin Ratio 0.9 (1.1-1.8); Alkaline Phosphatase 188 U/L (45-117); Anion Gap 10.7 mEq/L (5.0-15.0); BUN Blood Urea Nitrogen 11 mg/dL (7-18); Bicarbonate 23 mEq/L (21-32); Bilirubin Direct 1.5 mg/dL (0-0.2); Bilirubin Indirect, Calculated 0.7 mg/dL (0.2-0.8); Bilirubin Total 2.2 mg/dL (0.2-1.0); Globulin 4.4 g/dL (2.3-3.5); Glomerular Filtration Rate 124 ml/min (=/>90); Glucose Level 93 mg/dL (74-106); Lipase 25 U/L (13-75); Magnesium 2.2 mg/dL (1.6-2.4); Potassium 3.7 mEq/L (3.5-5.1); Protein, Total 8.4 g/dL (6.4-8.2); Sodium Level 138 mEq/L (136-145)
[2023-09-16 23:54] LABS: Troponin High Sensitivity < 3.0 pg/mL (<58.9)
[2023-09-17] MEDS ORDERED: PANTOPRAZOLE 40 MG INJ ONE
[2023-09-17] MEDS ORDERED: HYDROMORPHONE HCL 1 MG/ML INJ ONE
[2023-09-17 00:59] LABS: Specific Gravity 1.028 (1.005-1.030)
[2023-09-17 01:02] LABS: Specific Gravity 1.028 (1.005-1.030); Urine Bacteria <20 /HPF (<20); Urine Bilirubin 2+ (Negative); Urine Blood 2+ (Negative); Urine Clarity Extremely Turbid (Clear); Urine Color Dark-Yellow (Yellow); Urine Culture Reflex Order NOT NEEDED; Urine Glucose NEGATIVE (Negative); Urine Ketones 2+ (Negative); Urine Micro Reflex YN NO BILL MICROSCOPIC; Urine Mucus 4+ /HPF (None Seen); Urine Nitrite NEGATIVE (Negative); Urine Protein 1+ (Negative); Urine RBC 21-50 /HPF (None Seen); Urine Urobilinogen 2+ (Normal)
[2023-09-17 01:10] LABS: Barbiturates NEGATIVE (NEGATIVE); Benzodiazepines NEGATIVE (NEGATIVE); Cocaine NEGATIVE (NEGATIVE); METHAMPHETAM NEGATIVE (NEGATIVE); Methadone NEGATIVE (NEGATIVE); Opiates NEGATIVE (NEGATIVE); Phencyclidine NEGATIVE (NEGATIVE); THC Cannibis NEGATIVE (NEGATIVE)
[2023-09-17] MEDS ORDERED: ONDANSETRON 4 MG/2 ML VIAL ONE (01:15)
[2023-09-17] MEDS ORDERED: NA CHLORIDE 0.9% 1,000 ML ONE (01:16)
[2023-09-17] MEDS ORDERED: PROMETHAZINE INJ 25 MG/ML AMP ONE (01:18)
--- NOTE | 2023-09-17 03:13 | EDPHYS ---
Physician Documentation [facility] Name: Roselyn Mason Age: 28 yrs Sex: Female : 1995 Arrival Date: 09/16/2023 Time: 22:00 Bed 7 Private MD: ED Physician Ata Fowler HPI: 09/15 23:05 This 28 yrs old Female presents to ER via Ambulatory with complaints of Chest cp Pain, Back Pain, Nausea/Vomiting, Weakness. 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 - Infectious Disease History:: Denies. - Social history:: Smoking status: Patient reports the use of cigarette tobacco products, denies chronic smoking, but will smoke occasionally. ROS: 23:10 Constitutional: Negative for body aches, chills, fever, poor PO intake, cp 23:10 Eyes: Negative for injury, pain, redness, and discharge, cp 23:10 ENT: Negative for drainage from ear(s), ear pain, sore throat, difficulty swallowing, difficulty handling secretions, 23:10 Cardiovascular: Positive for chest pain, 23:10 Respiratory: Negative for cough, wheezing, 23:10 Abdomen/GI: Positive for abdominal pain, nausea and vomiting, 23:10 Back: Positive for radiated pain, 23:10 : Negative for urinary symptoms, 23:10 Neuro: Negative for altered mental status, dizziness, headache, syncope, near syncope, weakness, 23:10 All other systems are negative, Exam: 22:30 ECG was reviewed by the Attending Physician. cp 23:15 Head/Face: Normocephalic, atraumatic. cp 23:15 Constitutional: The patient appears in no acute distress, alert, awake, non-diaphoretic, non-toxic, well developed, well nourished, uncomfortable, 23:15 Eyes: Periorbital structures: appear normal, Conjunctiva: normal, no exudate, no injection, Sclera: no appreciated abnormality, Lids and lashes: appear normal, bilaterally, 23:15 ENT: External ear(s): are unremarkable, Nose: is normal, Mouth: Lips: moist, Oral mucosa: moist, Posterior pharynx: Airway: no evidence of obstruction, patent, 23:15 Chest/axilla: Inspection: normal, 23:15 Cardiovascular: Rate: tachycardic, Rhythm: regular, Edema: is not appreciated, 23:15 Respiratory: the patient does not display signs of respiratory distress, Respirations: normal, no use of accessory muscles, no retractions, labored breathing, is not present, Breath sounds: are clear throughout, no decreased breath sounds, no stridor, no wheezing, 23:15 Abdomen/GI: Inspection: abdomen appears normal, Bowel sounds: active, all quadrants, Palpation: soft, in all quadrants, severe abdominal tenderness, in the epigastric area and right upper quadrant, rebound tenderness, is not appreciated, voluntary guarding, is elicited in the epigastric area and right upper quadrant, 23:15 Back: pain, that is moderate, CVA tenderness, is absent, 23:15 Neuro: Orientation: to person, place \T\ time. Mentation: is normal, Vital Signs: 22:20 BP 148 / 99; Pulse 103; Resp 18; Temp 98.5(O); Pulse Ox 98% on R/A; Weight 86.18 kg; cm10 Height 5 ft. 1 in. ; Pain 10/10; 22:40 BP 136 / 102; Pulse 90; Resp 20; Pulse Ox 100% on R/A; pc2 09/16 00:47 BP 147 / 104; Pulse 90; Resp 18; Pulse Ox 100% on R/A; pc2 01:00 BP 152 / 91; Pulse 93; Resp 20; Pulse Ox 100% on R/A; pc2 03:37 BP 141 / 66; Pulse 74; Resp 18; Pulse Ox 100% ; pc2 05:07 BP 121 / 70; Pulse 68; Resp 18; Pulse Ox 100% on R/A; pc2 09/15 22:20 Body Mass Index 35.90 (86.18 kg, 154.94 cm) cm10 09/15 22:20 Pain Scale: Adult cm10 MDM: 09/15 22:28 Patient medically screened. cp 09/16 03:15 Data reviewed: vital signs, nurses notes, lab test result(s), EKG, radiologic studies, cp CT scan, plain films. I considered the following discharge prescriptions or medication management in the emergency department Medications were administered in the Emergency Department. See MAR. Independent interpretation of the following test(s) in the Emergency Department EKG: See my EKG interpretation above. Counseling: I had a detailed discussion with the patient and/or guardian regarding the historical points, exam findings, and any diagnostic results supporting the discharge/admit diagnosis, lab results, radiology results, the need to transfer to another facility, for higher level of care, [facility] does not immediately have the required specialist. Response to treatment: the patient's symptoms have mildly improved after treatment. 03:15 Differential diagnosis: abnormal EKG, cholecystitis, Cholelithiasis pancreatitis, cp peptic ulcer disease, pneumonia, pneumothorax, pulmonary embolus, appendicitis, bowel obstruction. 09/15 22:55 Order name: Basic Metabolic Panel; Complete Time: 01:14 09/16 01:14 Interpretation: Normal except: CL 108. 09/15 22:55 Order name: CBC with Diff; Complete Time: 23:47 09/16 01:17 Interpretation: Normal except: HGB 11.3; HCT 34.8; MCV 78.0; MCH 25.4; RDW 16.4. 09/15 22:55 Order name: LFT's; Complete Time: 01:14 09/16 01:14 Interpretation: Normal except: AST 680; ALT 659; ALK 188; BILIT 2.2; BILID 1.5; TP 8.4; cp GLOB 4.4; A/G 0.9. 09/15 22:55 Order name: Magnesium; Complete Time: 01:14 09/15 22:55 Order name: PT-INR; Complete Time: 23:47 09/15 22:55 Order name: Troponin HS; Complete Time: 01:14 09/15 22:55 Order name: Lipase; Complete Time: 01:14 09/16 01:18 Interpretation: Reviewed. 09/15 23:48 Order name: Urinalysis W/Microscopic; Complete Time: 01:14 09/15 23:48 Order name: Test, Urine; Complete Time: 01:14 09/15 23:48 Order name: UDS; Complete Time: 01:14 09/15 22:55 Order name: XRAY Chest (1 view) 09/15 23:49 Order name: CT Abd/Pelvis - IV Contrast Only cp 09/15 22:55 Order name: EKG; Complete Time: 22:55 cp 09/15 22:55 Order name: Cardiac monitoring; Complete Time: 23:10 cp 09/15 22:55 Order name: EKG - Nurse/Tech; Complete Time: 23:10 cp 09/15 22:55 Order name: IV Saline Lock; Complete Time: 23:10 cp 09/15 22:55 Order name: Labs collected and sent; Complete Time: 23:10 cp 09/15 22:55 Order name: O2 Per Protocol; Complete Time: 23:10 cp 09/15 22:55 Order name: O2 Sat Monitoring; Complete Time: 23:10 cp EC/28 22:30 Rate is 96 beats/min. Rhythm is regular. SC interval is normal. QRS interval is normal. cp QT interval is normal. T waves are Inverted in leads III, aVR. Interpreted by me. Reviewed by me. Administered Medications: 23:46 Drug: Ondansetron IVP 4 mg IVP once; over 2 minutes Route: IVP; Site: left antecubital; bm8 09/16 00:46 Follow up: Response: No adverse reaction pc2 00:18 Drug: HYDROmorphone IVP 1 mg IVP once Route: IVP; Site: right antecubital; pc2 01:24 Follow up: Response: No adverse reaction bm8 00:19 Drug: Pantoprazole IVP 40 mg IVP once Route: IVP; Site: right antecubital; pc2 01:24 Follow up: Response: No adverse reaction bm8 01:24 Drug: Promethazine IVP 25 mg IVP once Route: IVP; Site: left antecubital; bm8 02:00 Follow up: Response: No adverse reaction pc2 01:24 Drug: Ondansetron IVP 4 mg IVP once; over 2 minutes Route: IVP; Site: left antecubital; bm8 02:00 Follow up: Response: No adverse reaction pc2 01:24 Drug: NS 0.9% IV 1000 ml IV at 1 bolus Per protocol; 1000 mL bolus Route: IV; Rate: 1 bm8 bolus; Site: left antecubital; 03:34 Follow up: Response: No adverse reaction; IV Status: Infusion continued; IV Intake: pc2 1000ml 04:34 Drug: Piperacillin-Tazobactam IVPB 3.375 grams IVPB once over 60 mins; (mix in NS 100 pc2 mL) Route: IVPB; Infused Over: 60 mins; Site: left antecubital; 04:55 Follow up: Response: No adverse reaction pc2 05:30 Follow up: IV Status: Completed infusion; IV Intake: 100ml pc2 Disposition Summary: 09/17/23 03:12 Transfer Ordered Notes: Reason: Higher level of care cp Condition: Stable cp Problem: new cp Symptoms: have improved cp Transfer Location: [facility](09/17/23 04:19) cp Accepting Physician: DR Elly Adair(09/17/23 05:39) pc2 Diagnosis - Calculus of gallbladder and bile duct without cholecystitis with obstruction cp Discharge Instructions: - Discharge Summary Sheet kmf Forms: - Medication Reconciliation Form kmf - SBAR form kmf Signatures: Dispatcher [employer] EDMS Ata Clark PA PA cp Martinez, Clarissa, RN RN cm10 Santosh Spivey, RN RN bm8 Isabelle freed, RN RN pc2 Corrections: (The following items were deleted from the chart) 09/15 23:48 23:48 Urinalysis W/Microscopic+U.LAB.BRZ ordered. EDMS EDMS 23:48 23:48 Test, Urine+UC.LAB.BRZ ordered. EDMS EDMS 23:48 23:48 URINE DRUG SCREEN+UC.LAB.BRZ ordered. EDMS EDMS 09/16 04:19 03:12 doctor cp cp 04:19 03:12 [facility]System cp cp 04:31 04:19 DR Ellison cp cp 05:39 04:31 DR Elly Adair cp pc2 09/17 01:41 09/15 23:00 Constitutional: The patient appears in no acute distress, alert, awake, cp non-diaphoretic, non-toxic, well developed, well nourished, uncomfortable, cp 09/17 01:41 09/15 23:00 Head/Face: Normocephalic, atraumatic. cp cp 09/17 01:41 09/15 23:00 Eyes: Periorbital structures: appear normal, Conjunctiva: normal, no cp exudate, no injection, Sclera: no appreciated abnormality, Lids and lashes: appear normal, bilaterally, 09/17 00:09/15 23:00 ENT: External ear(s): are unremarkable, Nose: is normal, Mouth: Lips: cp moist, Oral mucosa: moist, Posterior pharynx: Airway: no evidence of obstruction, patent, cp 09/17 00:09/15 23:00 Chest/axilla: Inspection: normal, [facility] 09/17 00:09/15 23:00 Cardiovascular: Rate: tachycardic, Rhythm: regular, Edema: is not cp appreciated, cp 09/17 00:09/15 23:00 Respiratory: the patient does not display signs of respiratory distress, cp Respirations: normal, no use of accessory muscles, no retractions, labored breathing, is not present, Breath sounds: are clear throughout, no decreased breath sounds, no stridor, no wheezing, 09/17 00:09/15 23:00 Abdomen/GI: Inspection: abdomen appears normal, Bowel sounds: active, all cp quadrants, Palpation: soft, in all quadrants, severe abdominal tenderness, in the epigastric area and right upper quadrant, rebound tenderness, is not appreciated, voluntary guarding, is elicited in the epigastric area and right upper quadrant, 09/17 00:09/15 23:00 Back: pain, that is moderate, CVA tenderness, is absent, cp 09/17 00:09/15 23:00 Neuro: Orientation: to person, place \T\ time. Mentation: is normal, [facility] 09/17 00:09/16 04:00 Data reviewed: vital signs, nurses notes, lab test result(s), EKG, cp radiologic studies, CT scan, plain films, 09/17 04:00 I considered the following discharge prescriptions or medication management cp in the emergency department Medications were administered in the Emergency Department. See MAR 09/17 04:00 Independent interpretation of the following test(s) in the Emergency cp Department EKG: See my EKG interpretation above 09/17 04:00 Counseling: I had a detailed discussion with the patient and/or guardian regarding the historical points, exam findings, and any diagnostic results supporting the discharge/admit diagnosis, lab results, radiology results, the need to transfer to another facility, for higher level of care, [facility], maehndra 09/17 01:44 09/16 04:00 Response to treatment: the patient's symptoms have mildly improved after cp treatment, cp
--- NOTE | 2023-09-17 03:13 | ER ---
Nurse's Notes [facility] Name: Roselyn Mason Age: 28 yrs Sex: Female : 1995 Arrival Date: 09/16/2023 Time: 22:00 Bed 7 Private MD: Diagnosis: Calculus of gallbladder and bile duct without cholecystitis with obstruction Presentation: 09/15 22:20 Chief complaint: Patient states: WAS RECENTLY SEEN HERE FOR CHEST PAIN AND VOMITING. PT cm10 STATES THAT THE CHEST PAIN CAME BACK, WORSE WITH INSPIRATION. PT ALSO REPORTS NAUSEA, VOMITING AND BLACK TARRY STOOLS. Coronavirus screen: Client denies travel out of the [place] in the last 14 days. At this time, the client does not indicate any symptoms associated with coronavirus-19. Ebola Screen: Patient denies travel to an Ebola-affected area in the 21 days before illness onset. No symptoms or risks identified at this time. Initial Sepsis Screen: Does the patient meet any 2 criteria? HR > 90 bpm. Does the patient have a suspected source of infection? No. Patient's initial sepsis screen is negative. Risk Assessment: Do you want to hurt yourself or someone else? Patient reports no desire to harm self or others. Onset of symptoms was September 16, 2023. 22:20 Method Of Arrival: Ambulatory cm10 22:20 Acuity: TABITHA 3 cm10 Triage Assessment: 22:21 General: Appears in no apparent distress. uncomfortable, Behavior is calm, cooperative. cm10 Pain: Complains of pain in chest Pain does not radiate. Pain currently is 10 out of 10 on a pain scale. Quality of pain is described as pressure, Pain began 4 hours ago. Neuro: No deficits noted. Level of Consciousness is awake, alert, obeys commands, Oriented to person, place, time, situation, Appropriate for age. Cardiovascular: Reports chest pain, Chest pain is described as Pain is 10 out of 10 on a pain scale. quality is pressure, is located in substernal area began 4 hours prior to arrival episodes are continuous is aggravated by breathing. Respiratory: No deficits noted. Airway is patent Respiratory effort is even, unlabored, Respiratory pattern is regular, symmetrical. GI: Reports nausea, vomiting. 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 - Infectious Disease History:: Denies. - Social history:: Smoking status: Patient reports the use of cigarette tobacco products, denies chronic smoking, but will smoke occasionally. Screenin:36 [facility] ED Fall Risk Assessment (Adult) History of falling in the last 3 months, pc2 including since admission No falls in past 3 months (0 pts) Confusion or Disorientation No (0 pts) Intoxicated or Sedated No (0 pts) Impaired Gait No (0 pts) Mobility Assist Device Used No (0 pt) Altered Elimination No (0 pt) Score/Fall Risk Level 0 - 2 = Low Risk Oriented to surroundings, Maintained a safe environment, Hourly rounding (assess needs \T\ fall precautionary measures) done. Abuse screen: Denies threats or abuse. Denies injuries from another. Nutritional screening: No deficits noted. Tuberculosis screening: No symptoms or risk factors identified. Assessment: 22:37 General: Appears in no apparent distress. uncomfortable, obese, well developed, pc2 Behavior is calm, cooperative. Pain: Complains of pain in chest and abdomen Pain currently is 9 out of 10 on a pain scale. Quality of pain is described as aching, sharp, Pain began 2-3 days ago. Neuro: Level of Consciousness is awake, alert, Oriented to person, place, time, situation, Appropriate for age. Cardiovascular: Patient's skin is warm and dry. Chest pain is located in epigastric area. Respiratory: Airway is patent Respiratory effort is even, unlabored, Respiratory pattern is regular, symmetrical. GI: Abdomen is round non-distended, obese, Pt is actively vomiting Reports constipation, nausea, vomiting, 2 episodes of black stool after multiple days of constipation. : No signs and/or symptoms were reported regarding the genitourinary system. EENT: No signs and/or symptoms were reported regarding the EENT system. Derm: No signs and/or symptoms reported regarding the dermatologic system. Skin is pink, warm \T\ dry. Musculoskeletal: No signs and/or symptoms reported regarding the musculoskeletal system. Circulation, motion, and sensation intact. 23:20 Reassessment: No changes from previously documented assessment. Patient and/or family pc2 updated on plan of care and expected duration. Pain level reassessed. 09/16 01:25 Reassessment: Pt to CT via stretcher. NAD noted. pc2 03:38 Reassessment: Patient and/or family updated on plan of care and expected duration. Pain pc2 level reassessed. Patient is alert, oriented x 3, equal unlabored respirations, skin warm/dry/pink. Patient states symptoms have improved. 04:45 Reassessment: Patient appears in no apparent distress at this time. Patient and/or pc2 family updated on plan of care and expected duration. Pain level reassessed. 04:52 Reassessment: Report called to GENE Kimbrough at [facility] receiving bed 1042. pc2 05:33 Reassessment: Patient appears in no apparent distress at this time. EMS at bedside to [facility] transport patient to [facility] Patient states feeling better. Vital Signs: 09/15 22:20 BP 148 / 99; Pulse 103; Resp 18; Temp 98.5(O); Pulse Ox 98% on R/A; Weight 86.18 kg; cm10 Height 5 ft. 1 in. ; Pain 10/10; 22:40 BP 136 / 102; Pulse 90; Resp 20; Pulse Ox 100% on R/A; pc2 09/16 00:47 BP 147 / 104; Pulse 90; Resp 18; Pulse Ox 100% on R/A; pc2 01:00 BP 152 / 91; Pulse 93; Resp 20; Pulse Ox 100% on R/A; pc2 03:37 BP 141 / 66; Pulse 74; Resp 18; Pulse Ox 100% ; pc2 05:07 BP 121 / 70; Pulse 68; Resp 18; Pulse Ox 100% on R/A; pc2 09/15 22:20 Body Mass Index 35.90 (86.18 kg, 154.94 cm) cm10 09/15 22:20 Pain Scale: Adult cm10 ED Course: 09/15 22:05 Patient arrived in ED. ra3 22:21 Triage completed. cm10 22:23 Arm band placed on Patient placed in waiting room. EKG completed in triage. Results cm10 shown to MD. 22:26 Ata Clark PA is PHCP. cp 22:26 Ata Fowler MD is Attending Physician. cp 22:27 Isabelle freed, RN is Primary Nurse. pc2 22:35 Patient has correct armband on for positive identification. Bed in low position. Call pc2 light in reach. Side rails up X2. Provided Education on: POC and time frame.. Client placed on continuous cardiac and pulse oximetry monitoring. NIBP monitoring applied. 22:35 Initial lab(s) drawn, by ED staff, sent to lab. pc2 22:37 Inserted saline lock: 20 gauge in left antecubital area, using aseptic technique. Blood rc3 collected. 23:11 Troponin HS Sent. pc2 23:12 PT-INR Sent. pc2 23:12 Magnesium Sent. pc2 23:12 LFT's Sent. pc2 23:12 CBC with Diff Sent. pc2 23:12 Basic Metabolic Panel Sent. pc2 23:12 Lipase Sent. pc2 23:33 XRAY Chest (1 view) In Process Unspecified. EDMS 23:55 No provider procedures requiring assistance completed. pc2 09/16 01:29 CT Abd/Pelvis - IV Contrast Only In Process Unspecified. EDMS 03:05 initiated transfer with [facility] \T\ [facility]. Decline due to no MRCP. kmf 03:18 initiated transfer with [facility] \T\ [facility] - decline due to services. kmf 03:34 initiated transfer with [facility] \T\ [facility]. kmf 04:[address] [facility] bed 1042. Number for nurse to nurse report [phone]. Medina Camilo accepted \T\ 0416. Admin approval given by [facility] \T\ 0429. 05:37 Patient transferred, IV remains in place. pc2 05:38 O2 via RA. pc2 Administered Medications: 09/15 23:46 Drug: Ondansetron IVP 4 mg IVP once; over 2 minutes Route: IVP; Site: left antecubital; bm8 09/16 00:46 Follow up: Response: No adverse reaction pc2 00:18 Drug: HYDROmorphone IVP 1 mg IVP once Route: IVP; Site: right antecubital; pc2 01:24 Follow up: Response: No adverse reaction bm8 00:19 Drug: Pantoprazole IVP 40 mg IVP once Route: IVP; Site: right antecubital; pc2 01:24 Follow up: Response: No adverse reaction bm8 01:24 Drug: Promethazine IVP 25 mg IVP once Route: IVP; Site: left antecubital; bm8 02:00 Follow up: Response: No adverse reaction pc2 01:24 Drug: Ondansetron IVP 4 mg IVP once; over 2 minutes Route: IVP; Site: left antecubital; bm8 02:00 Follow up: Response: No adverse reaction pc2 01:24 Drug: NS 0.9% IV 1000 ml IV at 1 bolus Per protocol; 1000 mL bolus Route: IV; Rate: 1 bm8 bolus; Site: left antecubital; 03:34 Follow up: Response: No adverse reaction; IV Status: Infusion continued; IV Intake: pc2 1000ml 04:34 Drug: Piperacillin-Tazobactam IVPB 3.375 grams IVPB once over 60 mins; (mix in NS 100 pc2 mL) Route: IVPB; Infused Over: 60 mins; Site: left antecubital; 04:55 Follow up: Response: No adverse reaction pc2 05:30 Follow up: IV Status: Completed infusion; IV Intake: 100ml pc2 Medication: 09/15 23:50 VIS not applicable for this client. pc2 Intake: 09/16 03:34 IV: 1000ml; Total: 1000ml. pc2 05:30 IV: 100ml; Total: 1100ml. pc2 Outcome: 03:12 ER care complete, transfer ordered by MD. mccray 05:34 Transferred by [facility]. to [facility], [facility] [place], Transfer form pc2 completed. 05:34 Condition: stable 05:34 Instructed on the need for transfer, Demonstrated understanding of instructions, 05:39 Patient left the ED. pc2 Signatures: Dispatcher [employer] EDAta Rahman PA PA cp Martinez, Clarissa, RN RN cm10 Zonia Espinosa [facility] Keira Crocker ra3 Eva Richardson3 Santosh Spivey RN RN bm8 Isabelle freed, RN RN pc2
[2023-09-17] MEDS ORDERED: PIPERACIL/TAZO 3.375 GM VIAL IV ONE (04:32)
[2023-09-17] MEDS ORDERED: NA CHLORIDE 0.9% 100 ML ONE (04:33)
[2023-09-17 06:10] VITALS: TEMP 98.5; O2SAT 100
[2023-09-17 06:27] VITALS: BP 121/70
--- NOTE | 2023-09-18 12:29 | RAD REPORT ---
EXAM DESCRIPTION: CT - Abdomen Pelvis W Contrast - 09/17/2023 7:15 am CLINICAL HISTORY: Abd Pain. TECHNIQUE: Contiguous axial images obtained through the abdomen and pelvis following the uneventful administration of IV contrast. Coronal and sagittal reformatted images were provided. This exam was performed according to our departmental dose-optimization program, which includes autom ated exposure control, adjustment of the mA and/or kV according to patient size and/or use of iterati ve reconstruction technique. COMPARISON: CT Abdomen pelvis 04/21/2023. FINDINGS: Lung bases: Clear Liver: Diffuse fatty infiltration of the liver Gallbladder and biliary system: Multiple small gallstones. Dilatation of the common bile duct measuri ng approximately 8 mm. Choledocholithiasis should be suspected. Recommend further evaluation with [facility] P Pancreas: Unremarkable Spleen: Unremarkable Adrenals: Unremarkable Kidneys: Normal renal cortical enhancement. No calculi. No hydronephrosis. GI: No obstruction. No appreciable mucosal thickening. Appendix: No findings to suggest acute appendicitis. Urinary bladder: Unremarkable Reproductive: Small involuting right ovarian follicle. Trace fluid in the pelvis, which may be physiologic. Lymph nodes: No pathologically enlarged lymph nodes. Peritoneum: No focal fluid collection. No free air. Vessels: No abdominal aortic aneurysm. Abdominal wall: Unremarkable Bones: Unremarkable IMPRESSION: 1. Multiple small gallstones. Dilatation of the common bile duct measuring approximate ly 8 mm. Choledocholithiasis should be suspected. Recommend further evaluation with MRCP. 2. Diffuse fatty infiltration of the liver. 3. Small involuting right ovarian follicle. Trace fluid in the pelvis, which may be physiologic. Electronically signed by: Gerson Biggs MD 09/17/2023 02:48 AM CDT Due to temporary technical issues with the PACS/Fluency reporting system, reports are being signed by the in house radiologist without review as a courtesy to ensure prompt reporting. The interpreting r adiologist is fully responsible for the content of the report.
--- NOTE | 2023-09-18 12:30 | RAD REPORT ---
EXAM DESCRIPTION: RAD - Chest Single View - 09/16/2023 11:31 pm CLINICAL HISTORY: Chest pain. TECHNIQUE: AP chest COMPARISON: XR Chest 08/25/2020. FINDINGS: CHEST: Heart: The cardiomediastinal silhouette is within normal limits. Lungs: No focal consolidation. Mediastinum: Unremarkable Pleura: No appreciable effusion. No pneumothorax. Bones: Intact IMPRESSION: No acute cardiopulmonary disease. Electronically signed by: Gerson Biggs MD 09/16/2023 11:52 PM CDT RP Due to temporary technical issues with the PACS/Fluency reporting system, reports are being signed by the in house radiologist without review as a courtesy to ensure prompt reporting. The interpreting r adiologist is fully responsible for the content of the report.
--- NOTE | 2023-09-19 14:21 | EKG ---
Test Date: 2023-09-16 Test Time: 22:23:24 Fusing Line Inspector: [place] MEASUREMENT RESULTS: Intervals: Rate: 96 DE: 132 QRSD: 74 QT: 344 QTc: 434 [place]: P: 52 DE: 132 QRS: 14 T: 22 INTERPRETIVE STATEMENTS: Normal sinus rhythm Normal ECG Compared to ECG 09/14/2023 20:13:57 Myocardial infarct finding no longer present Electronically Signed On 09-19-23 14:16:00 CDT by Luis Alberto Valladares
== END 2023-09-17 05:39 | disposition short-term general hospital (02) ==
LOC: ER 22:00
DX: K80.71 Calculus of gallbladder and bile duct without cholecystitis with obstruction (principal); F17.210 Nicotine dependence, cigarettes, uncomplicated
CPT/HCPCS: 85025; 81001; 80048; 36415; 83735; 81025; 85610; 80076; 84484; 83690; 80307; 74177; 71045; Q9967; J2550; J2543; C9113; J1170; J2405 ×2; J7030; 93005; 99285

== ENCOUNTER 2023-11-23 13:45 | Emergency (ER) | payer OTHER ==
[2023-11-23] MEDS ORDERED: HYDROCODONE/APAP 7.5/325 MG TAB ONE (14:25)
[2023-11-23 14:39] LABS: Absolute Eosinophils 0.1 K/uL (0-0.5); Absolute Lymphocytes (CBC) 1.7 K/uL (0.7-4.9); Absolute Monocytes 0.5 K/uL (0.1-1.3); Absolute Neutrophil 4.3 K/uL (1.8-8.0); Basophils % 0.6 % (0-1.3); Hematocrit 32.3 % (36.0-45.0); Hemoglobin 10.6 g/dL (12.0-15.0); Lymphocytes % 25.3 % (15.3-44.8); MCH 26.1 pg (27.0-35.0); MCHC 32.9 g/dL (32.0-36.0); MCV 79.4 fL (80-100); Monocytes % 8.2 % (3.3-12.3); Neutrophils % 64.9 % (41.7-73.7); Nucleated Red Blood Cells % 0.1 % (0-0); Platelets 262 thou/uL (152-406); RBC Red Blood Cell Count 4.07 M/uL (3.86-4.86); Red Cell Distribution Width 16.2 % (12.1-15.2)
[2023-11-23 14:54] LABS: Albumin 3.5 g/dL (3.4-5.0); Albumin/Globulin Ratio 0.8 (1.1-1.8); Anion Gap 7.7 mEq/L (5.0-15.0); Bilirubin Total 0.2 mg/dL (0.2-1.0); Globulin 4.2 g/dL (2.3-3.5); Potassium 3.7 mEq/L (3.5-5.1); Protein, Total 7.7 g/dL (6.4-8.2)
[2023-11-23] MEDS ORDERED: KETOROLAC 30 MG/ML INJ ONE (15:17)
[2023-11-23] MEDS ORDERED: NA CHLORIDE 0.9% 1,000 ML ONE (15:18)
--- NOTE | 2023-11-23 15:27 | ER ---
Nurse's Notes [facility] Name: Roselyn Mason Age: 28 yrs Sex: Female : 1995 Arrival Date: 11/23/2023 Time: 13:45 Bed 20 Private MD: Diagnosis: 10cm fluid collection right pelvis;Puncture wound without foreign body of left upper arm, initial encounter;Contusion of left upper arm;Contusion of buttocks Presentation: 11/22 13:54 Chief complaint: Patient states: she slipped and fell while going outside at 0100 this kc6 morning. denies LOC. Coronavirus screen: At this time, the client does not indicate any symptoms associated with coronavirus-19. Ebola Screen: No symptoms or risks identified at this time. Initial Sepsis Screen: Does the patient meet any 2 criteria? HR > 90 bpm. Does the patient have a suspected source of infection? No. Patient's initial sepsis screen is negative. Risk Assessment: Do you want to hurt yourself or someone else? Patient reports no desire to harm self or others. Onset of symptoms was November 23, 2023. 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 - Infectious Disease History:: Denies. - Social history:: Smoking status: Patient reports the use of cigarette tobacco products, denies chronic smoking, but will smoke occasionally. Screenin:29 [facility] ED Fall Risk Assessment (Adult) History of falling in the last 3 months, kj2 including since admission Yes- single mechanical fall (1 pt) Confusion or Disorientation No (0 pts) Intoxicated or Sedated No (0 pts) Impaired Gait No (0 pts) Mobility Assist Device Used No (0 pt) Altered Elimination Score/Fall Risk Level 0 - 2 = Low Risk. Abuse screen: Denies threats or abuse. Denies injuries from another. Nutritional screening: No deficits noted. Tuberculosis screening: No symptoms or risk factors identified. Assessment: 15:27 General: Appears in no apparent distress. Behavior is calm, cooperative. Pain: kj2 Complains of pain in left arm and left bicep and sacrum Pain currently is 8 out of 10 on a pain scale. Neuro: Level of Consciousness is awake, alert, Oriented to person, place, time, situation. Cardiovascular: Patient's skin is warm and dry. Respiratory: Airway is patent Respiratory effort is even, unlabored. GI: No deficits noted. : No deficits noted. Derm: laceration on left upper arm. 16:26 Reassessment: report given to [facility] nurse. kj2 Vital Signs: 13:54 BP 127 / 90; Pulse 105; Resp 17 S; Temp 98.2(TE); Pulse Ox 100% on R/A; Weight 86.18 kg kc6 (R); Height 5 ft. 1 in. (R); Pain 9/10; 15:28 BP 132 / 91; Pulse 97; Resp 20; Temp 98; Pulse Ox 100% on R/A; kj2 16:30 BP 134 / 88; Pulse 90; Resp 20; Pulse Ox 100% on R/A; kj2 17:20 BP 135 / 95; Pulse 92; Resp 18; Temp 98; Pulse Ox 100% on R/A; kj2 13:54 Body Mass Index 35.90 (86.18 kg, 154.94 cm) kc6 13:54 Pain Scale: Adult kc6 ED Course: 13:47 Patient arrived in ED. mg5 13:48 [facility] kb 13:48 Javad Renner DO is Attending Physician. kb 13:56 Triage completed. kc6 13:56 Arm band placed on. kc6 14:14 CT Abd/Pelvis - Without Contrast In Process Unspecified. EDMS 14:32 CMP Sent. cm10 14:32 CBC with Diff Sent. cm10 14:32 Initial lab(s) drawn, by me, sent to lab. Inserted saline lock: 20 gauge in right cm10 antecubital area, using aseptic technique. Blood collected. Flushed with 10 mL NS. 15:01 initiated a transfer with Rosa Elena Ross Rn from the [facility] transfer center. eb 15:13 Nicole Grant RN is Primary Nurse. kj2 15:[address] Catherine Chapman the surgeon honing machine operator semiautomatic for [facility] with Jaz Meza for eb patient transfer consultation. 15:[address] Logan Qureshi the hospitalist honing machine operator semiautomatic for [facility] with Jaz Meza eb for patient transfer consultation. 15:30 Patient has correct armband on for positive identification. Bed in low position. Call kj2 light in reach. Provided Education on: call light, fall precautions. 15:43 administrative approval given by Tawny Parry/ patient has been accepted to [facility] room 1555/ Dr. Garrett Qureshi has accepted the patient in tranfser/ report to be called to [phone]. 16:30 qagan tayagungin called for patient transport. ty 17:40 No provider procedures requiring assistance completed. kj2 17:41 Patient transferred, IV remains in place. kj2 Administered Medications: 14:32 Drug: Hydrocodone-Acetaminophen PO (7.5 mg-325 mg) 1 tabs PO once Route: PO; cm10 15:14 Follow up: Response: No adverse reaction; Pain is decreased kj2 15:26 Drug: NS 0.9% IV 1000 ml IV at 1000 ml once Route: IV; Rate: 1000 ml; Site: right kj2 antecubital; 16:30 Follow up: Response: No adverse reaction; IV Status: Completed infusion kj2 17:29 Follow up: IV Status: Completed infusion; IV Intake: 1000ml kj2 15:26 Drug: Ketorolac IVP 15 mg IVP once Route: IVP; Site: right antecubital; kj2 16:15 Follow up: Response: No adverse reaction; Pain is decreased kj2 15:38 Drug: Boostrix Tdap IM 0.5 ml IM once; as a single dose Route: IM; Site: right deltoid; kj2 16:00 Follow up: Response: No adverse reaction kj2 17:23 Drug: Ondansetron IVP 4 mg IVP once; over 2 minutes Route: IVP; Site: right antecubital;kj2 17:28 Follow up: Response: No adverse reaction; Medication administered at discharge. kj2 17:25 Drug: morphine IVP or IV 4 mg IVP once over 4 mins Route: IVP; Infused Over: 4 mins; kj2 Site: right antecubital; 17:28 Follow up: Response: No adverse reaction; Medication administered at discharge. kj2 Medication: 17:39 VIS not applicable for this client. kj2 Intake: 17:29 IV: 1000ml; Total: 1000ml. kj2 Outcome: 15:27 ER care complete, transfer ordered by MD. wild 17:40 Transferred by ground EMS to [facility], [facility], Transfer form completed. kj2 17:40 Condition: stable 17:40 Discharge instructions given to patient, EMS, Instructed on the need for transfer, Demonstrated understanding of instructions, 17:41 Patient left the ED. kj2 Signatures: Dispatcher [employer] EDMS Jaz Dailey, BLOOD BANK COORDINATOR-C BLOOD BANK COORDINATOR-CkShea Finn Kaitlyn, RN RN kc6 Isabel Mcghee RN RN cm10 Bita Grace5 Adiel Martinez Krystal RN RN kj2
--- NOTE | 2023-11-23 15:27 | EDPHYS ---
Physician Documentation [facility] Name: Roselyn Mason Age: 28 yrs Sex: Female : 1995 Arrival Date: 11/23/2023 Time: 13:45 Bed 20 Private MD: ED Physician Javad Renner HPI: 11/22 14:13 This 28 yrs old Female presents to ER via Ambulatory with complaints of Fall kb Injury, Laceration To Arm, Post Surgical Pain. 14:13 Pt is a 28 year old female who presents after slip and fall last night. Reports pain to kb tailbone, pain, bruising and puncture to left upper arm from hitting it against an exposed nail on a column. Also reports pain to periumbilical area that started after surgery 4 weeks ago. States she wanted to get that checked out since she was here. . 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 - Infectious Disease History:: Denies. - Social history:: Smoking status: Patient reports the use of cigarette tobacco products, denies chronic smoking, but will smoke occasionally. ROS: 14:11 Constitutional: As per HPI kb Exam: 14:11 Constitutional: This is a well developed, well nourished patient who is awake, alert, kb and in no acute distress. Head/Face: Normocephalic, atraumatic. ENT: Moist Mucous membranes Cardiovascular: Regular rate Respiratory: Respirations even and unlabored. No increased work of breathing. Talking in full sentences Skin: Warm, dry with normal turgor. Normal color. Neuro: Awake and alert, GCS 15, oriented to person, place, time, and situation. Moves all extremities. Normal gait. 14:11 Abdomen/GI: Inspection: abdomen appears normal, Bowel sounds: normal, Palpation: soft, mild abdominal tenderness, in the umbilical area, 14:11 Back: pain, that is moderate, that is severe, of the lumbar area and sacrum, ROM is painful, 14:12 Musculoskeletal/extremity: Extremities: grossly normal except: noted in the left bicep: kb ecchymosis, pain, puncture, tenderness, ROM: intact in all extremities, Circulation is intact in all extremities. Sensation intact. Vital Signs: 13:54 BP 127 / 90; Pulse 105; Resp 17 S; Temp 98.2(TE); Pulse Ox 100% on R/A; Weight 86.18 kg kc6 (R); Height 5 ft. 1 in. (R); Pain 9/10; 15:28 BP 132 / 91; Pulse 97; Resp 20; Temp 98; Pulse Ox 100% on R/A; kj2 16:30 BP 134 / 88; Pulse 90; Resp 20; Pulse Ox 100% on R/A; kj2 17:20 BP 135 / 95; Pulse 92; Resp 18; Temp 98; Pulse Ox 100% on R/A; kj2 13:54 Body Mass Index 35.90 (86.18 kg, 154.94 cm) kc6 13:54 Pain Scale: Adult kc6 MDM: 13:48 Patient medically screened. kb 14:12 Data reviewed: vital signs, nurses notes. kb 15:16 Differential diagnosis: contusion, fracture, abscess, seroma. Consideration of kb Admission/Observation Escalation of care including admission/observation considered. pt will be transferred back to [facility] for continuity of care. Management of patient was discussed with the following: Dr Chapman, general surgeon at [facility], accepts pt for consult . Discussion of test interpretation with radiology: I had a discussion with radiology regarding a test interpretation. CT results discussed with Dr Luther. 10cm fluid collection to right pelvis. 15:24 Management of patient was discussed with the following: Dr Qureshi, hospitalist at [facility], kb accepts pt for transfer. Counseling: I had a detailed discussion with the patient and/or guardian regarding the historical points, exam findings, and any diagnostic results supporting the discharge/admit diagnosis, lab results, radiology results, the need to transfer to another facility, [facility] does not immediately have the required specialist. 11/22 14:21 Order name: CBC with Diff; Complete Time: 14:42 kb 11/22 14:21 Order name: CMP; Complete Time: 14:55 kb 11/22 13:54 Order name: CT Abd/Pelvis - Without Contrast 11/22 14:21 Order name: IV Start; Complete Time: 14:32 kb Administered Medications: 14:32 Drug: Hydrocodone-Acetaminophen PO (7.5 mg-325 mg) 1 tabs PO once Route: PO; cm10 15:14 Follow up: Response: No adverse reaction; Pain is decreased kj2 15:26 Drug: NS 0.9% IV 1000 ml IV at 1000 ml once Route: IV; Rate: 1000 ml; Site: right kj2 antecubital; 16:30 Follow up: Response: No adverse reaction; IV Status: Completed infusion kj2 17:29 Follow up: IV Status: Completed infusion; IV Intake: 1000ml kj2 15:26 Drug: Ketorolac IVP 15 mg IVP once Route: IVP; Site: right antecubital; kj2 16:15 Follow up: Response: No adverse reaction; Pain is decreased kj2 15:38 Drug: Boostrix Tdap IM 0.5 ml IM once; as a single dose Route: IM; Site: right deltoid; kj2 16:00 Follow up: Response: No adverse reaction kj2 17:23 Drug: Ondansetron IVP 4 mg IVP once; over 2 minutes Route: IVP; Site: right antecubital;kj2 17:28 Follow up: Response: No adverse reaction; Medication administered at discharge. kj2 17:25 Drug: morphine IVP or IV 4 mg IVP once over 4 mins Route: IVP; Infused Over: 4 mins; kj2 Site: right antecubital; 17:28 Follow up: Response: No adverse reaction; Medication administered at discharge. kj2 Disposition: 18:48 I was immediately available on-site in the Emergency Department for consultation in the ms3 care of the patient. Disposition Summary: 11/23/23 15:27 Transfer Ordered Notes: Transfer Location: [facility] kb Reason: Higher level of care kb Condition: Stable kb Problem: new kb Symptoms: are unchanged kb Accepting Physician: Dr Qureshi(11/23/23 17:41) kj2 Diagnosis - 10cm fluid collection right pelvis kb - Puncture wound without foreign body of left upper arm, initial encounter kb - Contusion of left upper arm kb - Contusion of buttocks kb Forms: - Medication Reconciliation Form kb - SBAR form kb Signatures: Dispatcher [employer] EDJaz Mendes, MARKET DEVELOPMENT ANALYST-C MARKET DEVELOPMENT ANALYST-Ckb Renner, Javad, DO DO ms3 Jessica Harrington, RN RN kc6 Isabel Mcghee, RN RN cm10 Nicole Grant RN RN kj2 Corrections: (The following items were deleted from the chart) 14:13 14:11 Constitutional: This is a well developed, well nourished patient who is awake, kb alert, and in no acute distress. Head/Face: Normocephalic, atraumatic. ENT: Moist Mucous membranes Cardiovascular: Regular rate Respiratory: Respirations even and unlabored. No increased work of breathing. Talking in full sentences Skin: Warm, dry with normal turgor. Normal color. MS/ Extremity: Pulses equal, no cyanosis. Neurovascular intact. Full, normal range of motion. Neuro: Awake and alert, GCS 15, oriented to person, place, time, and situation. Moves all extremities. Normal gait. kb 17:41 15:27 Dr Qureshi kb kj2
[2023-11-23] MEDS ORDERED: TDAP (DIPHTH,PERTUSS(ACELL),TET VAC) 0.5 ML VIAL IMVAC ONE (15:33)
[2023-11-23] MEDS ORDERED: ONDANSETRON 4 MG/2 ML VIAL ONE (17:22)
[2023-11-23] MEDS ORDERED: MORPHINE 4 MG/ML SYR ONE (17:23)
[2023-11-23 18:04] VITALS: O2SAT 100
[2023-11-23 18:06] VITALS: TEMP 98
[2023-11-23 18:10] VITALS: BP 135/95
--- NOTE | 2023-11-23 18:54 | RAD REPORT ---
EXAM DESCRIPTION: CT - Abdomen Pelvis Wo Contrast - 11/23/2023 2:12 pm CLINICAL HISTORY: Abdominal pain COMPARISON: June 2023 TECHNIQUE: Computed axial tomography of the abdomen and pelvis was obtained. IV and oral contrast we re not requested. All CT scans are performed using dose optimization technique as appropriate and may include automated exposure control or mA/KV adjustment according to patient size. FINDINGS: The evaluation of solid organs, vessels and bowel is limited secondary to the lack of con trast administration. Fatty liver. Cholecystectomy Spleen, adrenals and kidneys appear grossly normal. 2 dense structures within the proximal third portion of the duodenum presumably are post surgical cli ps and should be correlated surgical history. The appendix is normal. There is no evidence of diverticulitis. 10 centimeter multi loculated fluid collection with thick wall present within and the lower right abd omen/upper pelvis Mild contusion left posterior subcutaneous fat buttocks Due to technical issues the exam could not dictated until now. A preliminary report was given to the emergency room IMPRESSION: 10 centimeter multiloculated fluid collection with thick wall right lower abdomen/upper right pelvis probably either an abscess or biloma
== END 2023-11-23 17:41 | disposition short-term general hospital (02) ==
LOC: ER 13:45
DX: R19.09 Other intra-abdominal and pelvic swelling, mass and lump (principal); S41.132A Puncture wound without foreign body of left upper arm, initial encounter; S40.022A Contusion of left upper arm, initial encounter; S30.0XXA Contusion of lower back and pelvis, initial encounter; F17.210 Nicotine dependence, cigarettes, uncomplicated; W01.0XXA Fall on same level from slipping, tripping and stumbling without subsequent striking against object, initial encounter
CPT/HCPCS: 96361; 85025; 36415; 80053; 74176; 96375; 96372; 96374; 99285; J2405; J7030

== ENCOUNTER 2024-06-09 04:46 | Emergency (ER) | payer OTHER ==
--- NOTE | 2024-06-09 05:48 | EDPHYS ---
Physician Documentation [facility] Name: Roselyn Mason Age: 29 yrs Sex: Female : 1995 Arrival Date: 06/09/2024 Time: 04:46 Bed Waiting Private MD: LAYA Physician Ata Fowler HPI: 06/09 05:43 This 29 yrs old Female presents to ER via Unassigned with complaints of ellis Nausea/Vomiting. 05:43 The patient presents to the emergency department with nausea, vomiting, abdominal pain. ellis Onset: The symptoms/episode began/occurred just prior to arrival. Possible causes: unknown. The symptoms are aggravated by nothing. The symptoms are alleviated by nothing. Severity of symptoms: At their worst the symptoms were mild in the emergency department the symptoms are unchanged. The patient has not experienced similar symptoms in the past. 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 - Infectious Disease History:: Denies. - Family history:: not pertinent. - Social history:: Smoking status: Patient reports the use of cigarette tobacco products, denies chronic smoking, but will smoke occasionally, Patient uses alcohol, occasionally. Patient/guardian denies using street drugs. ROS: 05:43 Constitutional: Negative for fever, chills, and weight loss, Eyes: Negative for injury, ellis pain, redness, and discharge, ENT: Negative for injury, pain, and discharge, Neck: Negative for injury, pain, and swelling, Cardiovascular: Negative for chest pain, palpitations, and edema, Respiratory: Negative for shortness of breath, cough, wheezing, and pleuritic chest pain, Back: Negative for injury and pain, : Negative for injury, bleeding, discharge, and swelling, MS/Extremity: Negative for injury and deformity, Skin: Negative for injury, rash, and discoloration, Neuro: Negative for headache, weakness, numbness, tingling, and seizure, Psych: Negative for depression, anxiety, suicide ideation, homicidal ideation, and hallucinations, Endocrine: Negative for neck swelling, polydipsia, polyuria, polyphagia, and marked weight changes, Hematologic/Lymphatic: Negative for swollen nodes, abnormal bleeding, and unusual bruising, 05:43 Abdomen/GI: Positive for abdominal pain, nausea, vomiting, Exam: 05:45 Constitutional: This is a well developed, well nourished patient who is awake, alert, ellis and in no acute distress. Head/Face: Normocephalic, atraumatic. Eyes: Pupils equal round and reactive to light, extra-ocular motions intact. Lids and lashes normal. Conjunctiva and sclera are non-icteric and not injected. Cornea within normal limits. Periorbital areas with no swelling, redness, or edema. ENT: Nares patent. No nasal discharge, no septal abnormalities noted. Tympanic membranes are normal and external auditory canals are clear. Oropharynx with no redness, swelling, or masses, exudates, or evidence of obstruction, uvula midline. Mucous membranes moist. Neck: Trachea midline, no thyromegaly or masses palpated, and no cervical lymphadenopathy. Supple, full range of motion without nuchal rigidity, or vertebral point tenderness. No Meningismus. Chest/axilla: Normal chest wall appearance and motion. Nontender with no deformity. No lesions are appreciated. Cardiovascular: Regular rate and rhythm with a normal S1 and S2. No gallops, murmurs, or rubs. Normal PMI, no JVD. No pulse deficits. Respiratory: Lungs have equal breath sounds bilaterally, clear to auscultation and percussion. No rales, rhonchi or wheezes noted. No increased work of breathing, no retractions or nasal flaring. Back: No spinal tenderness. No costovertebral tenderness. Full range of motion. Skin: Warm, dry with normal turgor. Normal color with no rashes, no lesions, and no evidence of cellulitis. MS/ Extremity: Pulses equal, no cyanosis. Neurovascular intact. Full, normal range of motion., bilateral aka Neuro: Awake and alert, GCS 15, oriented to person, place, time, and situation. Cranial nerves II-XII grossly intact. Motor strength 5/5 in all extremities. Sensory grossly intact. Cerebellar exam normal. Normal gait. Psych: Awake, alert, with orientation to person, place and time. Behavior, mood, and affect are within normal limits. 05:45 Abdomen/GI: Inspection: abdomen appears normal, Bowel sounds: normal, Palpation: abdomen is soft and non-tender, Liver: no appreciated palpable abnormalities, Hernia: not appreciated, Vital Signs: 06:16 BP 129 / 91; Pulse 101; Resp 18; Temp 97.2; Weight 86.18 kg; Height 5 ft. 4 in. ; Pain br2 0/10; 06:16 Body Mass Index 32.61 (86.18 kg, 162.56 cm) br2 06:16 Pain Scale: Adult br2 MDM: 05:47 Differential diagnosis: Nonspecific abd pain, gastritis, pancreatitis, appendicitis, ellis diverticulitis, viral gastroenteritis, gastroenteritis. Data reviewed: vital signs, nurses notes. Consideration of Admission/Observation Escalation of care including admission/observation considered. I considered the following discharge prescriptions or medication management in the emergency department Medications were administered in the Emergency Department. See MAR. 05:48 Medical Screening Exam initiated ellis Administered Medications: 05:42 CANCELLED (Duplicate Order): ns 0.9% 1000 ml IV at 1000 ml once; to be given as a bolus ellis over 60 minutes 05:42 CANCELLED (Duplicate Order): ondansetron 4 mg IVP once; over 2 minutes ellis 06:21 Drug: Ondansetron Oral Disintegrating Tablet Oral Disintegrating Tablet 8 mg PO once br2 Route: PO; Disposition Summary: 06/09/24 05:48 Discharge Ordered Notes: Location: Home ellis Problem: new ellis Symptoms: have improved ellis Condition: Stable ellis Diagnosis - Vomiting ellis Followup: ellis - With: Private Physician - When: 2 - 3 days - Reason: Recheck today's complaints, Continuance of care, Re-evaluation by your physician Discharge Instructions: - Discharge Summary Sheet ellis - Nausea and Vomiting, Adult ellis - Nausea and Vomiting, Adult, [id number] ellsi Forms: - Medication Reconciliation Form ellis - Antibiotic Education ellis - Prescription Opioid Use ellis - Patient Portal Instructions ellis - Leadership Thank You Letter [facility] Prescriptions: - ondansetron 4 mg Oral Tablet,disintegrating - take 1 tablet ORAL route every 6-8 hours for 24 hours; 20 tablet; Refills: 0, ellis Product Selection Permitted Signatures: Dispatcher [employer] EDAta Song MD MD cha Riddle, Belinda, RN RN br2 Corrections: (The following items were deleted from the chart) 05:42 05:17 NS 0.9% IV 1000 ml IV at 1000 ml once; to be given as a bolus over 60 minutes ellis ordered. ellis 05:42 05:17 Ondansetron IVP 4 mg IVP once; over 2 minutes ordered. ellis [place]ral
--- NOTE | 2024-06-09 06:20 | ER ---
Nurse's Notes [facility] Name: Roselyn Mason Age: 29 yrs Sex: Female : 1995 Arrival Date: 06/09/2024 Time: 04:46 Bed Waiting Private MD: Diagnosis: Vomiting Presentation: 06/09 06:16 Chief complaint: Patient states: NAUSEA/VOMITING/DIARRHEA. Coronavirus screen: Client br2 denies travel out of the [place] in the last 14 days. Ebola Screen: Patient denies exposure to infectious person. Initial Sepsis Screen: Does the patient meet any 2 criteria? Does the patient have a suspected source of infection? No. Patient's initial sepsis screen is negative. Risk Assessment: Do you want to hurt yourself or someone else?. Onset of symptoms was June 08, 2024 at 22:30. 06:16 Method Of Arrival: Ambulatory br2 06:16 Acuity: TABITHA 5 br2 06:16 Acuity: TABITHA 4 br2 Triage Assessment: 06:17 General: Appears in no apparent distress. Behavior is calm, cooperative. Pain: Denies br2 pain. GI: Reports cramping, diarrhea, nausea, vomiting. 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 - Infectious Disease History:: Denies. - Family history:: not pertinent. - Social history:: Smoking status: Patient reports the use of cigarette tobacco products, denies chronic smoking, but will smoke occasionally, Patient uses alcohol, occasionally. Patient/guardian denies using street drugs. Assessment: 06:19 Reassessment: SEE TRIAGE ASSESSMENT. br2 Vital Signs: 06:16 BP 129 / 91; Pulse 101; Resp 18; Temp 97.2; Weight 86.18 kg; Height 5 ft. 4 in. ; Pain br2 0/10; 06:16 Body Mass Index 32.61 (86.18 kg, 162.56 cm) br2 06:16 Pain Scale: Adult br2 ED Course: 04:53 Patient arrived in ED. jj6 05:16 Ata Fowler MD is Attending Physician. ellis 06:16 Christi Steel, RN is Primary Nurse. br2 06:17 Triage completed. br2 06:17 Arm band placed on. br2 Administered Medications: 05:42 CANCELLED (Duplicate Order): ns 0.9% 1000 ml IV at 1000 ml once; to be given as a bolus ellis over 60 minutes 05:42 CANCELLED (Duplicate Order): ondansetron 4 mg IVP once; over 2 minutes ellis 06:21 Drug: Ondansetron Oral Disintegrating Tablet Oral Disintegrating Tablet 8 mg PO once br2 Route: PO; Outcome: 05:48 Discharge ordered by . ellis 06:19 Patient left the ED. br2 Signatures: Ata Fowler MD MD cha Jeffries, Jennifer jj6 Christi Steel, RN RN br2
[2024-06-09] MEDS ORDERED: ONDANSETRON 4 MG (ODT) TAB ONE (06:25)
[2024-06-09 06:37] VITALS: BP 129/91; TEMP 97.2
== END 2024-06-09 06:19 | disposition home or self-care (01) ==
LOC: ER 04:46
DX: R11.10 Vomiting, unspecified (principal); F17.210 Nicotine dependence, cigarettes, uncomplicated
CPT/HCPCS: 99282; Q0162

== ENCOUNTER 2024-12-09 10:39 | Emergency (ER) | payer OTHER, SELFPAY ==
[2024-12-09] MEDS ORDERED: ONDANSETRON 4 MG/2 ML VIAL ONE (12:10)
[2024-12-09] MEDS ORDERED: MORPHINE 4 MG/ML SYR ONE (12:10)
[2024-12-09] MEDS ORDERED: NA CHLORIDE 0.9% 1,000 ML ONE (12:10)
[2024-12-09 12:16] LABS: Absolute Lymphocytes (CBC) 2.4 K/uL (0.7-4.9); Hematocrit 38.9 % (36.0-45.0); Hemoglobin 13.4 g/dL (12.0-15.0); MCH 28.6 pg (27.0-35.0); MCHC 34.4 g/dL (32.0-36.0); MCV 83.0 fL (80-100); MPV 8.4 fL (7.6-11.3); Nucleated RBC Absolute Count 0.0 (0-0); Nucleated Red Blood Cells % 0.0 % (0-0); RBC Red Blood Cell Count 4.68 M/uL (3.86-4.86); White Blood Count 7.40 thou/uL (4.3-10.9)
[2024-12-09 12:31] LABS: ALT/SGPT 67.0 U/L (13-56); AST/SGOT 30.0 U/L (15-37); Albumin 3.5 g/dL (3.4-5.0); Albumin/Globulin Ratio 0.8 (1.1-1.8); Alkaline Phosphatase 71.0 U/L (45-117); Anion Gap 8.7 mEq/L (5.0-15.0); BUN Blood Urea Nitrogen 18.0 mg/dL (7-18); Globulin 4.2 g/dL (2.3-3.5); Glucose Level 102.0 mg/dL (74-106); Lipase 27.0 U/L (13-75); Potassium 3.7 mEq/L (3.5-5.1)
[2024-12-09 12:35] LABS: Sqamous Epithelial <5 /HPF (None Seen); Urine Culture Reflex Order NOT NEEDED; Urine Microscopic Reflex YN ORDER UMIC
--- NOTE | 2024-12-09 12:38 | RAD REPORT ---
Extremity Venous Uni Ltd CLINICAL INDICATION: Female, 29 years old.PAIN RIGHT TECHNIQUE: Complete duplex sonography of the lower extremity veins was performed of the affected limb . The examination included compression for vein patency, color Doppler imaging and flow augmentation in response to distal compression of the distal external iliac, common femoral, femoral, popliteal, peroneal, tibial and great saphenous veins. [id number]. COMPARISON: No prior exams FINDINGS: Duplex sonography imaging demonstrates all deep veins examined to be fully compressible with spontane ous, phasic and augmented flow in the affected limb. IMPRESSION: No evidence of deep venous thrombosis in the right lower extremity.
[2024-12-09] MEDS ORDERED: LORazepam 2 MG/ML VIAL ONE (13:46)
--- NOTE | 2024-12-09 14:27 | RAD REPORT ---
EXAMINATION: Abdomen Pelvis W Contrast CLINICAL INDICATION: Female, 29 years old.ABD PAIN TECHNIQUE: CT abdomen and pelvis was performed, after the administration of IV contrast[facility]. Axial, sagittal and coronal reconstructions were obtained. One or more of the following dose reduction techniques were used: Automated exposure control, adjustment of the mA and/o r kV according to patient size, and/or iterative reconstruction. Unless otherwise specified, incidental findings do not require dedicated imaging follow-up. [id number]. COMPARISON: No prior exams FINDINGS: LOWER CHEST: No acute process identified.No significant pericardial effusion. UPPER GI: Metallic densities in the region of the ampulla/third portion duodenum possibly postsurgica l. LIVER: Hepatic steatosis, but otherwise unremarkable. GALLBLADDER/BILE DUCTS: Cholecystectomy.? PANCREAS: No mass, ductal dilation, or luiz-pancreatic fluid. SPLEEN: Unremarkable. ADRENALS: No adrenal masses. KIDNEYS AND URETERS: No hydronephrosis.No suspicious renal mass.No renal calculi.No ureteral calculi. ABDOMINAL AORTA AND OTHER VESSELS: Normal caliber aorta and IVC. PERITONEUM: No abnormal free fluid. No free air. LYMPH NODES: No pathologic lymphadenopathy. ABDOMINAL WALL: Unremarkable SMALL BOWEL/COLON: Small bowel has normal course and caliber. No colonic wall thickening or pericolon ic inflammatory changes.Normal appendix. URINARY BLADDER: Nonspecific circumferential bladder wall thickening. REPRODUCTIVE ORGANS: No pathologic process. MUSCULOSKELETAL: No acute or suspicious osseous abnormality. ADDITIONAL FINDINGS: Previously identified right-sided retroperitoneal fluid collection has significa ntly decreased in size and now measures 15 x 15 mm. This is probably of little significance. IMPRESSION: No acute findings within the abdomen or pelvis. Incidental findings as noted above.
--- NOTE | 2024-12-09 14:55 | ER ---
Nurse's Notes [facility] Name: Roselyn Mason Age: 29 yrs Sex: Female : 1995 Arrival Date: 12/09/2024 Time: 10:39 Bed 20 Private MD: Diagnosis: Abdominal pain, unspecified;Pain in right leg Presentation: 12/09 11:20 Chief complaint: Interment abdominal pain and nausea x 1 week. Pain is similar to when hb she had complications after her cholecystectomy one year ago. Also c/o burning pain in right lower leg. Coronavirus screen: At this time, the client does not indicate any symptoms associated with coronavirus-19. Ebola Screen: No symptoms or risks identified at this time. Initial Sepsis Screen: Does the patient meet any 2 criteria? No. Patient's initial sepsis screen is negative. Does the patient have a suspected source of infection? No. Patient's initial sepsis screen is negative. Risk Assessment: Do you want to hurt yourself or someone else? Patient reports no desire to harm self or others. Onset of symptoms was December 02, 2024. 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 - Infectious Disease History:: Denies. - Social history:: Smoking status: Patient denies any tobacco usage or history of. Screenin:30 [facility] ED Fall Risk Assessment (Adult) History of falling in the last 3 months, me1 including since admission No falls in past 3 months (0 pts) Confusion or Disorientation No (0 pts) Intoxicated or Sedated No (0 pts) Impaired Gait No (0 pts) Mobility Assist Device Used No (0 pt) Altered Elimination No (0 pt) Score/Fall Risk Level 0 - 2 = Low Risk Maintained a safe environment, Provided non-skid footwear, Hourly rounding (assess needs \T\ fall precautionary measures) done. Abuse screen: Denies threats or abuse. Nutritional screening: No deficits noted. Tuberculosis screening: No symptoms or risk factors identified. Assessment: 11:30 General: Appears uncomfortable, Behavior is calm, cooperative, appropriate for age, me1 Reports Interment abdominal pain and nausea x 1 week. Pain is similar to when she had complications after her cholecystectomy one year ago. Also c/o burning pain in right lower leg. Pain: Complains of pain in abdomen diffusely Pain does not radiate. Pain currently is 8 out of 10 on a pain scale. Quality of pain is described as sharp, Pain began one week ago Is continuous. Neuro: Level of Consciousness is awake, alert, obeys commands, Oriented to person, place, time, situation, Appropriate for age. Cardiovascular: Patient's skin is warm and dry. Respiratory: Airway is patent Respiratory effort is even, unlabored, Respiratory pattern is regular, symmetrical. GI: Abdomen is non-distended, Bowel sounds present X 4 quads. Abd is soft X 4 quads Reports lower abdominal pain, upper abdominal pain, nausea, since one week ago. : No signs and/or symptoms were reported regarding the genitourinary system. EENT: No signs and/or symptoms were reported regarding the EENT system. Derm: Skin is intact, is healthy with good turgor, Skin is pink, warm \T\ dry. Musculoskeletal: Circulation, motion, and sensation intact. Range of motion: intact in all extremities, Reports pain in lateral aspect of right calf. Vital Signs: 11:20 BP 126 / 90; Pulse 81; Resp 16; Temp 97.7; Pulse Ox 100% on R/A; Weight 86.18 kg; hb Height 5 ft. 1 in. ; Pain 8/10; 12:00 BP 137 / 90; Pulse 81; Resp 16; Pulse Ox 100% ; me1 13:00 BP 120 / 90; Pulse 69; Resp 16; Pulse Ox 99% ; me1 14:55 BP 125 / 94; Pulse 67; Resp 16; Temp 98.2; Pulse Ox 100% ; me1 11:20 Body Mass Index 35.90 (86.18 kg, 154.94 cm) hb 11:20 Pain Scale: Adult hb ED Course: 10:55 Patient arrived in ED. ts1 10:56 Fidelina Dobson PA-C is PHCP. sb4 10:56 Prabhjot Fowler MD is Attending Physician. sb4 11:22 Triage completed. hb 11:23 Arm band placed on. hb 11:30 Patient has correct armband on for positive identification. Bed in low position. Call me1 light in reach. Side rails up X2. Provided Education on: POC. Verbalized understanding.. Client placed on continuous cardiac and pulse oximetry monitoring. NIBP monitoring applied. Pulse ox on. NIBP on. 11:30 No provider procedures requiring assistance completed. me1 11:47 Yeni Mayo, RN is Primary Nurse. me1 12:08 Inserted saline lock: 20 gauge in right antecubital area, using aseptic technique. pm7 Blood collected. Flushed with 10 mL NS. 12:20 Urine collected: clean catch specimen, clear. me1 12:35 Extremity Venous Uni Ltd US In Process Unspecified. EDMS 14:08 CT Abd/Pelvis - IV Contrast Only In Process Unspecified. EDMS 15:09 IV discontinued, intact, bleeding controlled, No redness/swelling at site. Pressure me1 dressing applied. Administered Medications: 12:19 Drug: NS 0.9% IV 1000 ml IV at 1 bolus Per protocol; to be given as a bolus over 60 me1 minutes Route: IV; Rate: 1 bolus; Site: right antecubital; 14:55 Follow up: Response: No adverse reaction; IV Status: Completed infusion; IV Intake: me1 1000ml 12:20 Drug: Ondansetron IVP 4 mg IVP once; over 2 minutes Route: IVP; Site: right antecubital;me1 12:49 Follow up: Response: No adverse reaction; Nausea is decreased me1 12:20 Drug: morphine IVP or IV 4 mg IVP once over 4 mins Route: IVP; Infused Over: 4 mins; me1 Site: right antecubital; 12:50 Follow up: Response: No adverse reaction; Pain is decreased me1 13:47 Drug: Ativan IVP 1 mg IVP once Route: IVP; Site: right antecubital; me1 14:55 Follow up: Response: No adverse reaction; Anxiety decreased me1 15:09 Drug: Hydrocodone-Acetaminophen PO (7.5 mg-325 mg) 1 tabs PO once Route: PO; me1 15:09 Follow up: Response: No adverse reaction me1 Medication: 11:30 VIS not applicable for this client. me1 Intake: 14:55 IV: 1000ml; Total: 1000ml. me1 Outcome: 14:54 Discharge ordered by MD. sb4 15:09 Discharged to home ambulatory, me1 15:09 Discharged to home with family, 15:09 Condition: stable 15:09 Discharge instructions given to patient, family, Instructed on discharge instructions, follow up and referral plans. medication usage, Demonstrated understanding of instructions, follow-up care, medications, Prescriptions given X 3, 15:10 Patient left the ED. me1 Signatures: Dispatcher [employer] EDAK Sabrina House RN RN hb Fidelina Dobson, PA-C PA-C sb4 Macarena Sahni PAS PAS ts1 Yeni Mayo RN RN me1 Vera Del Cid pm7 Corrections: (The following items were deleted from the chart) 11:24 11:20 Chief complaint: Interment abdominal pain and nausea x 1 week. Pain is similar to hb episode after her cholecystectomy one year ago. Also c/o burning pain in right lower leg hb 12:05 11:20 Chief complaint: Interment abdominal pain and nausea x 1 week. Pain is similar to me1 when she had complications after her cholecystectomy one year ago. Also c/o burning pain in right lower leg hb
--- NOTE | 2024-12-09 14:55 | EDPHYS ---
Physician Documentation [facility] Name: Roselyn Mason Age: 29 yrs Sex: Female : 1995 Arrival Date: 12/09/2024 Time: 10:39 Bed 20 Private MD: ED Physician Prabhjot Fowler HPI: 12/09 13:17 This 29 yrs old Female presents to ER via Ambulatory with complaints of sb4 Abdominal Pain, Nausea, Leg Pain. 13:17 Patient reports periumbilical abdominal pain with associated nausea for about a week sb4 now. She states that it feels like a burning sensation and worsens with any movement. Also complains of a burning pain in her right leg, denies any injury, redness, swelling, warmth. She is concerned because she states that about a year ago, she had an obstructing gallstone that required removal via ERCP then developed pancreatitis and then finally had her gallbladder removed. After the cholecystectomy, she developed a postoperative fluid collection that required another surgery. She states that she has been okay since then but now her symptoms feel similar to when she had all of these issues. 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 - Infectious Disease History:: Denies. - Social history:: Smoking status: Patient denies any tobacco usage or history of. ROS: 13:17 Constitutional: Negative for fever, chills, and weight loss, sb4 13:41 Abdomen/GI: Positive for abdominal pain, nausea, sb4 13:41 MS/extremity: Positive for right leg pain, 13:41 All other systems are negative, Exam: 13:41 Head/Face: Normocephalic, atraumatic. Eyes: Extra-ocular motions intact. Periorbital sb4 areas with no swelling, redness, or edema. ENT: Mucous membranes moist. Cardiovascular: Regular rate and rhythm with a normal S1 and S2. Respiratory: No increased work of breathing, no retractions or nasal flaring. Skin: Warm, dry with normal turgor. Normal color with no rashes, no lesions, and no evidence of cellulitis. 13:41 Constitutional: The patient appears alert, awake, obese, uncomfortable, 13:41 Abdomen/GI: Inspection: abdomen appears normal, Bowel sounds: normal, Palpation: soft, mild abdominal tenderness, in the umbilical area, right lower quadrant and left lower quadrant, Vital Signs: 11:20 BP 126 / 90; Pulse 81; Resp 16; Temp 97.7; Pulse Ox 100% on R/A; Weight 86.18 kg; hb Height 5 ft. 1 in. ; Pain 8/10; 12:00 BP 137 / 90; Pulse 81; Resp 16; Pulse Ox 100% ; me1 13:00 BP 120 / 90; Pulse 69; Resp 16; Pulse Ox 99% ; me1 14:55 BP 125 / 94; Pulse 67; Resp 16; Temp 98.2; Pulse Ox 100% ; me1 11:20 Body Mass Index 35.90 (86.18 kg, 154.94 cm) hb 11:20 Pain Scale: Adult hb MDM: 11:00 Medical Screening Exam initiated sb4 13:49 Differential diagnosis: gastritis, non-specific abd pain, pancreatitis, urinary tract sb4 infection. 15:18 Data reviewed: vital signs, nurses notes, lab test result(s), radiologic studies, and sb4 as a result, I will discharge patient. Counseling: I had a detailed discussion with the patient and/or guardian regarding the historical points, exam findings, and any diagnostic results supporting the discharge/admit diagnosis, the presence of at least one elevated blood pressure reading (>120/80) during this emergency department visit, lab results, radiology results, the need for outpatient follow up, for definitive care, to return to the emergency department if symptoms worsen or persist or if there are any questions or concerns that arise at home. ED course: Recommended follow-up with her surgeon to reevaluate the fluid collection. There is no need for emergent drainage or transfer at this time. Will safely discharge home with pain medications and copy of all results. 12/09 11:35 Order name: CBC with Diff; Complete Time: 12:19 sb4 12/09 11:35 Order name: CMP; Complete Time: 12:32 sb4 12/09 11:35 Order name: Lipase; Complete Time: 12:32 sb4 12/09 11:35 Order name: Test, Urine; Complete Time: 12:35 sb4 12/09 11:35 Order name: UA Rfx Herminio Cult if indicated; Complete Time: 12:35 sb4 12/09 11:35 Order name: CT Abd/Pelvis - IV Contrast Only; Complete Time: 14:32 sb4 12/09 11:35 Order name: Extremity Venous Uni Ltd US; Complete Time: 12:40 sb4 12/09 11:35 Order name: IV Saline Lock; Complete Time: 12:09 sb4 12/09 11:35 Order name: Labs collected and sent; Complete Time: 12:09 sb4 12/09 14:35 Order name: PO challenge; Complete Time: 14:55 sb4 Administered Medications: 12:19 Drug: NS 0.9% IV 1000 ml IV at 1 bolus Per protocol; to be given as a bolus over 60 me1 minutes Route: IV; Rate: 1 bolus; Site: right antecubital; 14:55 Follow up: Response: No adverse reaction; IV Status: Completed infusion; IV Intake: me1 1000ml 12:20 Drug: Ondansetron IVP 4 mg IVP once; over 2 minutes Route: IVP; Site: right antecubital;me1 12:49 Follow up: Response: No adverse reaction; Nausea is decreased me1 12:20 Drug: morphine IVP or IV 4 mg IVP once over 4 mins Route: IVP; Infused Over: 4 mins; me1 Site: right antecubital; 12:50 Follow up: Response: No adverse reaction; Pain is decreased me1 13:47 Drug: Ativan IVP 1 mg IVP once Route: IVP; Site: right antecubital; me1 14:55 Follow up: Response: No adverse reaction; Anxiety decreased me1 15:09 Drug: Hydrocodone-Acetaminophen PO (7.5 mg-325 mg) 1 tabs PO once Route: PO; me1 15:09 Follow up: Response: No adverse reaction me1 Disposition: 18:26 Co-signature as Attending Physician, Prabhjot Fowler MD I reviewed the patient's care rn provided by the Advanced Practice Provider and agree with the diagnosis and treatment plan. Disposition Summary: 12/09/24 14:54 Discharge Ordered Notes: Location: Home sb4 Problem: new sb4 Symptoms: have improved sb4 Condition: Stable sb4 Diagnosis - Abdominal pain, unspecified sb4 - Pain in right leg sb4 Followup: sb4 - With: Private Physician - When: As needed - Reason: Further diagnostic work-up, Recheck today's complaints, Re-evaluation by your physician Discharge Instructions: - Discharge Summary Sheet sb4 - Abdominal Pain, Adult sb4 - Musculoskeletal Pain sb4 Forms: - Prescription Opioid Use sb4 - Patient Portal Instructions sb4 - Leadership Thank You Letter sb4 Prescriptions: - ondansetron HCl 4 mg Oral tablet - take 1 tablet ORAL route every 6 to 8 hours as needed for nausea and vomiting; sb4 10 tablet; Refills: 0, Product Selection Permitted - Ibuprofen 800 mg Oral Tablet - take 1 tablet ORAL route every 8 hours As needed take with food; 30 tablet; sb4 Refills: 0, Product Selection Permitted - Tramadol 50 mg Oral Tablet - take 1 tablet ORAL route every 8 hours as needed; 12 tablet; Refills: 0, sb4 Product Selection Permitted Signatures: Dispatcher [employer] EDPrabhjot Olmos MD MD rn Baxter, Heather, RN RN Fidelina Adams PA-C PA-C sb4 Yeni Mayo RN RN me1 Corrections: (The following items were deleted from the chart) 11:35 11:35 Extremity Venous Uni Ltd+[email or web address] ordered. EDKS EDMS
[2024-12-09] MEDS ORDERED: HYDROCODONE/APAP 7.5/325 MG TAB ONE (14:58)
[2024-12-09 15:19] VITALS: O2SAT 100
[2024-12-09 15:34] VITALS: BP 161/55; TEMP 98.2
== END 2024-12-09 15:10 | disposition home or self-care (01) ==
LOC: ER 10:39
DX: R10.9 Unspecified abdominal pain (principal); M79.604 Pain in right leg; R11.0 Nausea; D64.9 Anemia, unspecified
CPT/HCPCS: 36415; 74177; 80053; 81001; 81025; 83690; 85025; 93971; 96361; 96374; 96375; 99284; J2405; J7030; Q9967